=== PATIENT | female | born 1965 | race Caucasian/White ===

== ENCOUNTER → 2017-07-07 | Outpatient (CLI) | payer MEDICAID ==
[~2017-07-07] MED LIST: ALBU8.5H2 IH; ALBUTEROL INHALER INH; ALPR1T PO; ALPR2TAB37 PO; AML5T; AMLO-326 PO; AMLO1TAB15 PO; C250T; CETI10CA PO; CETI10TA20 PO; CLN.1T; EZET10TA23 PO; FLUT16SP22 NS; FRSM20T PO; HYDR-2890 PO; HYDR-2997 PO; INSASP10V SQ; INSU100C3; INSU100C4; INSU100C4 SQ; INSU100I14 SQ; INSU100V6 SQ; LAMO25TA5; LATA2.5D5 OU; METO50TA2 PO; METO50TA7; METR500T PO; MTC10T; MTC10T PO; MTP50T PO; NAPR-243 PO; NF-HYDR25T; NOVOLOG PEN; NYST30OI TOP; OMEP-10 PO; OMEP40CA36 PO; OXYC1TAB19 PO; RNT150T; SIMV40TA2 PO; SIMV40TA4 PO; SMV20T; SMV20T PO; SUMA100T2 PO; TML25OP25 OU; TRM50T; WARF1TAB10 PO; WARF5TAB58 PO; WRF1T PO; WRF5T; [UNRECOGNIZED DRUG - OTHER]
[2017-07-07 08:27] LABS: ALBUMIN 3.6 GM/DL (3.2-4.5); BILIRUBIN,TOTAL 0.7 MG/DL (0.1-1.0); CALCIUM 8.8 MG/DL (8.5-10.1); CREATININE SERUM 1.17 MG/DL (0.60-1.30); POTASSIUM 4.6 MMOL/L (3.6-5.0); TOTAL PROTEIN 6.6 GM/DL (6.4-8.2)
[2017-07-08 10:43] LABS: VITAMIN D 25-HYDROXY (TOTAL) 14 ng/mL (30-100)
== END ==
LOC: LAB 07:38
PROVIDERS: ATTEND Internal Medicine Endocrinology, Diabetes & Metabolism
DX: E10.65 Type 1 diabetes mellitus with hyperglycemia (principal)
CPT/HCPCS: 36415; 80053; 80061; 82306; 82607

== ENCOUNTER 2017-07-22 19:15 | Emergency (ER) | payer MEDICAID ==
[~2017-07-22] VITALS: Ht 165.1 cm; Wt 93.0 kg
--- OUTSIDE RECORDS SUMMARY | 2017-07-22 19:19 | XMS REPORT | Clinical Summary ---
Author Author [facility] Organization [facility] Address Unknown Phone Unavailable Care Team Providers Care Hiv Nurse Name Role Phone PCP Unavailable Source Comments Some departments are not documenting in the electronic medical record. If you do not see the information that you expected, contact Release of Information in the Health Information Management department at [phone] for further assistance in locating additional records.[facility] Allergies Not on File Current Medications Not on file Active Problems Not on file Social History Tobacco Use Types Packs/Day Years Used Date Never Assessed Sex Assigned at Date Recorded Not on file Last Filed Vital Signs Not on file Plan of Treatment Health Maintenance Due Date Last Done Comments HEPATITIS C SCREENING 1963 PHYSICAL (COMPREHENSIVE) 1970 EXAM PERTUSSIS VACCINE 1974 TETANUS VACCINE 02/29/1980 CERVICAL CANCER SCREENING 1993 BREAST CANCER SCREENING 2003 COLORECTAL CANCER 2013 SCREENING INFLUENZA VACCINE 07/18/2017 Results Not on filefrom Last 3 Months
[2017-07-22] MEDS ORDERED: PROCHLORPERAZINE 10 MG/2ML INJ (COMPAZINE) IV ONE (19:45)
[2017-07-22] MEDS ORDERED: NS IV 1000 ML 1,000 ML IV SCH (19:45)
--- NOTE | 2017-07-22 19:46 | ED Abdominal Pain ---
General Stated Complaint: VOMITING Source of Information: Patient Exam Limitations: No Limitations History of Present Illness Time Seen By Provider: 19:45 Initial Comments To ER with bilateral lower abdominal pain for the past several days. She developed nausea and vomiting today. No fevers or chills. She reports a history of gastroparesis. Timing/Duration: 1 Week, Getting Worse Severity/Quality: Moderate Location: Suprapubic Radiation: No Radiation Activities at Onset: None Associated Symptoms: Nausea/Vomiting Allergies and Home Medications Allergies Coded Allergies: Sulfa (Sulfonamide Antibiotics) (Unverified Allergy, Unknown, 05/11/15) codeine (Verified Allergy, Unknown, TAKES ULTRAM AT HOME, 11/18/08) ketorolac (Verified Allergy, Unknown, 10/05/08) tramadol (Verified Allergy, Unknown, 11/02/11) Home Medications Albuterol 8.5 Gm Hfa.aer.ad, 2 PUFF IH TID PRN for SHORTNESS OF BREATH, ( Reported) 1 PUFFS Alprazolam 2 Mg Tab.rapdis, 2 MG PO TID PRN for ANXIETY, (Reported) Amlodipine/Valsartan 1 Each Tablet, 1 EACH PO DAILY, (Reported) Cetirizine HCl 10 Mg Tablet, 10 MG PO HS, (Reported) Ezetimibe 10 Mg Tablet, 10 MG PO DAILY, (Reported) Fluticasone Propionate 16 Gm Naspr, 2 SPRAYS NS DAILY, (Reported) Hydrocodone Bit/Acetaminophen 1 Each Tablet, 1 EACH PO BID PRN for PAIN, ( Reported) Insulin Aspart 100 Unit/1 Ml Insuln.pen, SQ PER SLIDING SCALE, (Reported) Insulin Glargine,Hum.rec.anlog 100 Unit/1 Ml Vial, 22 UNITS SQ BID, (Reported) Latanoprost 2.5 Ml Drops, 1 DROP OU HS, (Reported) Metoprolol Tartrate 50 Mg Tablet, 50 MG PO BID, (Reported) Nystatin 30 Gm Oint..gm., 0 TOP TID, (Reported) APPLY TO AFFECTED AREA(S) Omeprazole 40 Mg Capsule.dr, 40 MG PO before breakfast, (Reported) Simvastatin 40 Mg Tablet, 40 MG PO HS, (Reported) Timolol Maleate 15 Ml Btl, 1 DROP OU DAILY, #15 (Reported) Warfarin Sodium 1 Mg Tablet, 3 MG PO 6 pm, (Reported) TAKE 3 (1 MG) TABLETS WITH THE 5 MG DOSE AT 6 PM Warfarin Sodium 5 Mg Tablet, 5 MG PO 6 pm, (Reported) TAKE 1 (5 MG) TABLET WITH 3 (1 MG) TABLETS AT 6 PM Review of Systems Constitutional: see HPI EENTM: No Symptoms Reported Respiratory: No Symptoms Reported Cardiovascular: No Symptoms Reported Gastrointestinal: See HPI, Abdominal Pain, Nausea, Vomiting Genitourinary: No Symptoms Reported Musculoskeletal: no symptoms reported Skin: no symptoms reported Psychiatric/Neurological: No Symptoms Reported Past Brtyqfd-Ucddpn-Btrvad Hx Patient Social History Recent Foreign Travel: No Contact w/Someone Who Travel: No Immunizations Up To Date Tetanus Booster (TDap): Unknown Date of Pneumonia Vaccine: Aug 17, 2012 Date of Influenza Vaccine: Aug 17, 2012 Surgeries Surgeries: Adenoidectomy, Ear Surgery, Hysterectomy, Tonsillectomy Respiratory Respiratory Disorders: Asthma, Pneumonia, Chronic Bronchitis Cardiovascular Cardiac Disorders: Deep Vein Thrombosis Reproductive System Hx Reproductive Disorders: Yes Female Reproductive Disorders: Menstrual Problems Genitourinary Genitourinary Disorders: Renal Failure Gastrointestinal Gastrointestinal Disorders: Gastroesophageal Reflux, Pancreatitis Musculoskeletal Musculoskeletal Disorders: Arthritis, Rheumatoid Arthritis, Fractures Endocrine Endocrine Disorders: Diabetes, Insulin dep HEENT HEENT Disorders: Tonsilitis Loss of Vision: Denies Hearing Impairment: Denies Psychosocial Behavioral Health Disorders: Personality Disorder Blood Transfusions Adverse Reaction to a Blood Tr: No Family Medical History Significant Family History: Heart Disease, Cancer, Diabetes Physical Exam Vital Signs VS - Last 72 Hours, by Label 07/22/17 19:27 Temp 97.3 Pulse 115 Resp 24 B/P (MAP) 178/120 Pulse Ox 97 O2 Delivery Room Air Capillary Refill : General Appearance: WD/WN, no apparent distress HEENT: PERRL/EOMI, normal ENT inspection Neck: non-tender, full range of motion Respiratory: normal breath sounds, no respiratory distress, no accessory muscle use Cardiovascular: regular rate, rhythm, no murmur Gastrointestinal: normal bowel sounds, non tender, soft Extremities: normal range of motion, non-tender, normal inspection, no pedal edema Pelvic: normal external exam Neurologic/Psychiatric: alert, normal mood/affect, oriented x 3 Skin: normal color, warm/dry Progress/Results/Core Measures Results/Orders Lab Results Laboratory Tests Test 07/22/17 19:45 07/22/17 20:00 Range/Units White Blood Count 9.4 4.3-11.0 10^3/uL Red Blood Count 4.92 4.35-5.85 10^6/uL Hemoglobin 15.4 11.5-16.0 G/DL Hematocrit 46 35-52 % Mean Corpuscular Volume 93 80-99 FL Mean Corpuscular Hemoglobin 31 25-34 PG Mean Corpuscular Hemoglobin Concent 34 32-36 G/DL Red Cell Distribution Width 13.8 10.0-14.5 % Platelet Count 237 130-400 10^3/uL Mean Platelet Volume 10.1 7.4-10.4 FL Neutrophils (%) (Auto) 64 42-75 % Lymphocytes (%) (Auto) 25 12-44 % Monocytes (%) (Auto) 8 0-12 % Eosinophils (%) (Auto) 3 0-10 % Basophils (%) (Auto) 0 0-10 % Neutrophils # (Auto) 6.0 1.8-7.8 X 10^3 Lymphocytes # (Auto) 2.4 1.0-4.0 X 10^3 Monocytes # (Auto) 0.8 0.0-1.0 X 10^3 Eosinophils # (Auto) 0.2 0.0-0.3 10^3/uL Basophils # (Auto) 0.0 0.0-0.1 10^3/uL Sodium Level 142 135-145 MMOL/L Potassium Level 4.2 3.6-5.0 MMOL/L Chloride Level 104 98-107 MMOL/L Carbon Dioxide Level 24 21-32 MMOL/L Anion Gap 14 5-14 MMOL/L Blood Urea Nitrogen 25 H 7-18 MG/DL Creatinine 1.29 0.60-1.30 MG/DL Estimat Glomerular Filtration Rate 43 BUN/Creatinine Ratio 19 Glucose Level 102 70-105 MG/DL Calcium Level 9.6 8.5-10.1 MG/DL Total Bilirubin 0.9 0.1-1.0 MG/DL Aspartate Amino Transf (AST/SGOT) 99 H 5-34 U/L Alanine Aminotransferase (ALT/SGPT) 230 H 0-55 U/L Alkaline Phosphatase 83 40-136 U/L Total Protein 7.9 6.4-8.2 GM/DL Albumin 4.1 3.2-4.5 GM/DL Lipase 144 H 8-78 U/L Urine Color YELLOW Urine Clarity SLIGHTLY CLOUDY Urine pH 8 5-9 Urine Specific [place] 1.010 L 1.016-1.022 Urine Protein 3+ H NEGATIVE Urine Glucose (UA) NEGATIVE NEGATIVE Urine Ketones 1+ H NEGATIVE Urine Nitrite NEGATIVE NEGATIVE Urine Bilirubin NEGATIVE NEGATIVE Urine Urobilinogen NORMAL NORMAL MG/DL Urine Leukocyte Esterase 1+ H NEGATIVE Urine RBC (Auto) 2+ H NEGATIVE Urine RBC 5-10 H /HPF Urine WBC 0-2 /HPF Urine Squamous Epithelial Cells 0-2 /HPF Urine Crystals NONE /LPF Urine Bacteria NONE /HPF Urine Casts NONE /LPF Urine Mucus NEGATIVE /LPF Urine Culture Indicated NO Urine Opiates Screen NEGATIVE NEGATIVE Urine Oxycodone Screen NEGATIVE NEGATIVE Urine Methadone Screen NEGATIVE NEGATIVE Urine Propoxyphene Screen NEGATIVE NEGATIVE Urine Barbiturates Screen NEGATIVE NEGATIVE Ur Tricyclic Antidepressants Screen NEGATIVE NEGATIVE Urine Phencyclidine Screen NEGATIVE NEGATIVE Urine Amphetamines Screen NEGATIVE NEGATIVE Urine Methamphetamines Screen NEGATIVE NEGATIVE Urine Benzodiazepines Screen NEGATIVE NEGATIVE Urine Cocaine Screen NEGATIVE NEGATIVE Urine Cannabinoids Screen POSITIVE H NEGATIVE My Orders Orders - LIZET MAS NEW BUSINESS CLERK Cbc With Automated Diff (07/22/17 19:44) Comprehensive Metabolic Panel (07/22/17 19:44) Ua Culture If Indicated (07/22/17 19:44) Drug Screen Stat (Urine) (07/22/17 19:44) Saline Lock/Iv-Start (07/22/17 19:44) Lipase (07/22/17 19:44) Ns Iv 1000 Ml (Sodium Chloride 0.9%) (07/22/17 19:45) Prochlorperazine Injection (Compazine In (07/22/17 19:45) Ct Abd/Pelvis Wo(Kidney Stone) (07/22/17 20:29) Medications Given in ED Current Medications Medications Dose Ordered Sig/Nehemias Route Start Time Stop Time Status Last Admin Dose Admin Prochlorperazine Edisylate 10 mg ONCE ONCE IV 07/22/17 19:45 07/22/17 19:46 DC 07/22/17 19:59 10 MG Vital Signs/I&O Vital Sign - Last 12Hours 07/22/17 19:27 Temp 97.3 Pulse 115 Resp 24 B/P (MAP) 178/120 Pulse Ox 97 O2 Delivery Room Air Intake and Output 07/23/17 00:00 Intake Total 1000 ml Balance 1000 ml Departure Communication (Admissions) Progress Notes 2241- patient is feeling better at this time. Her abdominal pain is gone that was not given any pain medications. She reports some intermittent lower abdominal cramping. We'll give her some Zofran IV. Impression Impression: Primary Impression: Elevated liver enzymes Additional Impression: Nausea Disposition: 01 HOME, SELF-CARE Condition: Stable Departure-Patient Inst. Decision time for Depature: 22:42 Referrals: KARY ROWE DO (PCP/Family) Primary Care Physician Patient Instructions: NO INSTRUCTIONS GIVEN Add. Discharge Instructions: 1. Follow-up with Dr. Dr. Rowe 2. Return to ER for any concerns 3. Scripts Ondansetron (Zofran Odt) 8 Mg Tab.rapdis 8 MG PO Q6H Y for NAUSEA/VOMITING-1ST LINE, #14 TAB Prov: LIZET MAS APRN 07/22/17 LIZET MAS APRN Jul 22, 2017 19:46
[2017-07-22 20:11] LABS: BASOPHILS % (AUTO) 0 % (0-10); EOSINOPHILS # (AUTO) 0.2 10^3/uL (0.0-0.3); EOSINOPHILS % (AUTO) 3 % (0-10); LYMPHOCYTES # (AUTO) 2.4 X 10^3 (1.0-4.0); LYMPHOCYTES % (AUTO) 25 % (12-44); MEAN CORPUSCULAR HEMOGLOBIN 31 PG (25-34); MEAN CORPUSCULAR HGB CONC 34 G/DL (32-36); MEAN CORPUSCULAR VOLUME 93 FL (80-99); MEAN PLATELET VOLUME 10.1 FL (7.4-10.4); MONOCYTES # (AUTO) 0.8 X 10^3 (0.0-1.0); MONOCYTES % (AUTO) 8 % (0-12); NEUTROPHILS % (AUTO) 64 % (42-75); PLATELET COUNT 237 10^3/uL (130-400); RED BLOOD COUNT 4.92 10^6/uL (4.35-5.85); RED CELL DISTRIBUTION WIDTH 13.8 % (10.0-14.5); WHITE BLOOD COUNT 9.4 10^3/uL (4.3-11.0)
[2017-07-22 20:14] LABS: BILIRUBIN,URINE NEGATIVE (NEGATIVE); KETONES,URINE 1+ (NEGATIVE); LEUKOCYTE ESTERASE ,URINE 1+ (NEGATIVE); NITRITE,URINE NEGATIVE (NEGATIVE); PH,URINE 8 (5-9); PROTEIN,URINE 3+ (NEGATIVE); UROBILINOGEN,URINE NORMAL (NORMAL)
[2017-07-22 20:25] LABS: SQUAMOUS EPITHELIAL CELL,UR 0-2 /HPF; WBC,URINE 0-2 /HPF
[2017-07-22 20:35] LABS: ALBUMIN 4.1 GM/DL (3.2-4.5); BILIRUBIN,TOTAL 0.9 MG/DL (0.1-1.0); CALCIUM 9.6 MG/DL (8.5-10.1); CREATININE SERUM 1.29 MG/DL (0.60-1.30); POTASSIUM 4.2 MMOL/L (3.6-5.0); TOTAL PROTEIN 7.9 GM/DL (6.4-8.2)
--- NOTE | 2017-07-22 21:46 | Diagnostic Imaging Report ---
PROCEDURE: CT urinary tract, rule out kidney stone. TECHNIQUE: Multiple contiguous axial images were obtained through the abdomen and pelvis without the use of intravenous contrast. INDICATION: Lower abdominal pain with nausea and vomiting. History of kidney failure. COMPARISON is made to a prior CT from January 01, 2013. FINDINGS: The visualized lung bases demonstrate minimal dependent atelectasis and otherwise are clear. There is no pleural or pericardial effusion. The noncontrast appearance of the liver is unremarkable. Gallbladder nondistended without radiodense gallstone or biliary dilatation. The spleen is normal in size. Pancreas demonstrates no focal abnormality. There is no adrenal mass. There are right sided exophytic renal cysts. The kidneys appear nonobstructed without evidence of urolithiasis. No stone evident within the ureters or within the urinary bladder. There are fluid-filled loops of both small and proximal large bowel but no abnormal bowel dilation to suggest obstruction or evidence of significant abnormal bowel thickening. There is no focal inflammation evident within the omentum or mesentery and no evidence of free fluid within the pelvis. The patient is status post previous hysterectomy. There is no pathologic adenopathy evident. Aorta demonstrates advanced atherosclerosis. An IVC filter is noted. There are no acute or suspicious osseous abnormalities. IMPRESSION: 1. Fluid-filled loops of small bowel and proximal colon without evidence of bowel dilation to suggest obstruction. There is no significant bowel thickening demonstrated or evidence of focal inflammation within the omentum or mesentery. No free air or free fluid demonstrated 2. No evidence of urolithiasis or hydronephrosis. There is a simple appearing low density right renal cyst. 3. Atherosclerosis An IVC filter is noted. 4. Previous hysterectomy. Dictated by: Dictated on workstation # [id number]
[2017-07-22] MEDS ORDERED: RX-ONDANSETRON 4 MG ODT (ZOFRAN) PPK #4 PO STA (22:40)
[2017-07-22] MEDS ORDERED: ONDA8TAB9 PO (22:43)
[2017-07-22] MEDS ORDERED: ONDANSETRON 4 MG/2 ML (SDV) Z0FRAN IVP ONE (22:45)
[2017-07-22 23:17] VITALS: BP 162/106
== END 2017-07-22 23:17 | disposition home or self-care (01) ==
LOC: EDUNIT# 19:15 → ER 19:16
DX: R94.5 Abnormal results of liver function studies (principal); R11.2 Nausea with vomiting, unspecified; J45.909 Unspecified asthma, uncomplicated; K21.9 Gastro-esophageal reflux disease without esophagitis; M19.90 Unspecified osteoarthritis, unspecified site; M06.9 Rheumatoid arthritis, unspecified; E11.9 Type 2 diabetes mellitus without complications; Z82.49 Family history of ischemic heart disease and other diseases of the circulatory system; Z87.01 Personal history of pneumonia (recurrent); Z86.718 Personal history of other venous thrombosis and embolism; Z87.19 Personal history of other diseases of the digestive system; Z79.01 Long term (current) use of anticoagulants; Z79.4 Long term (current) use of insulin; Z90.710 Acquired absence of both cervix and uterus; Z90.89 Acquired absence of other organs
CPT/HCPCS: 36415; 74176; 80053; 80306; 81000; 83690; 85025; 96361; 96374; 96375

== ENCOUNTER → 2017-08-27 | Outpatient (CLI) | payer MEDICAID ==
[~2017-08-27] MED LIST changes: +ONDA8TAB9 PO
[2017-08-27 08:59] LABS: BASOPHILS % (AUTO) 1 % (0-10); EOSINOPHILS # (AUTO) 0.2 10^3/uL (0.0-0.3); EOSINOPHILS % (AUTO) 3 % (0-10); LYMPHOCYTES # (AUTO) 2.3 X 10^3 (1.0-4.0); LYMPHOCYTES % (AUTO) 33 % (12-44); MEAN CORPUSCULAR HEMOGLOBIN 31 PG (25-34); MEAN CORPUSCULAR HGB CONC 34 G/DL (32-36); MEAN CORPUSCULAR VOLUME 92 FL (80-99); MEAN PLATELET VOLUME 10.3 FL (7.4-10.4); MONOCYTES # (AUTO) 0.9 X 10^3 (0.0-1.0); MONOCYTES % (AUTO) 13 % (0-12); NEUTROPHILS # (AUTO) 3.6 X 10^3 (1.8-7.8); NEUTROPHILS % (AUTO) 51 % (42-75); PLATELET COUNT 227 10^3/uL (130-400); RED BLOOD COUNT 5.49 10^6/uL (4.35-5.85); RED CELL DISTRIBUTION WIDTH 13.7 % (10.0-14.5)
[2017-08-27 09:19] LABS: ALBUMIN 4.1 GM/DL (3.2-4.5); BILIRUBIN,TOTAL 1.2 MG/DL (0.1-1.0); CALCIUM 9.9 MG/DL (8.5-10.1); CREATININE SERUM 1.33 MG/DL (0.60-1.30); POTASSIUM 4.2 MMOL/L (3.6-5.0); TOTAL PROTEIN 8.3 GM/DL (6.4-8.2)
== END ==
LOC: LAB 08:40
PROVIDERS: ATTEND Family Medicine
DX: R74.8 Abnormal levels of other serum enzymes (principal); R73.9 Hyperglycemia, unspecified
CPT/HCPCS: 36415; 80053; 80061; 83036; 85025

== ENCOUNTER → 2018-04-15 | Outpatient (CLI) | payer MEDICAID ==
[2018-04-15 08:24] LABS: MEAN PLATELET VOLUME 10.2 FL (7.4-10.4); RED BLOOD COUNT 4.66 10^6/uL (4.35-5.85); RED CELL DISTRIBUTION WIDTH 13.3 % (10.0-14.5); WHITE BLOOD COUNT 5.2 10^3/uL (4.3-11.0)
[2018-04-15 08:43] LABS: ALBUMIN 3.9 GM/DL (3.2-4.5); BILIRUBIN,TOTAL 0.8 MG/DL (0.1-1.0); CALCIUM 9.3 MG/DL (8.5-10.1); CREATININE SERUM 1.21 MG/DL (0.60-1.30); POTASSIUM 4.5 MMOL/L (3.6-5.0); TOTAL PROTEIN 7.3 GM/DL (6.4-8.2)
== END ==
LOC: LAB 08:02
PROVIDERS: ATTEND Internal Medicine Endocrinology, Diabetes & Metabolism
DX: E10.65 Type 1 diabetes mellitus with hyperglycemia (principal); N18.9 Chronic kidney disease, unspecified
CPT/HCPCS: 36415; 80053; 82043; 82306; 82607; 84443; 85027

== ENCOUNTER → 2018-07-23 | Outpatient (CLI) | payer MEDICAID ==
--- NOTE | 2018-07-23 12:44 | Diagnostic Imaging Report ---
EXAM: Left elbow at 11:22 a.m. INDICATION: Injury, elbow pain TECHNIQUE: 3 views were obtained. COMPARISON: There are no prior studies available for comparison. FINDINGS: There is no fracture, dislocation or acute bony abnormality evident. The lateral view does show a minute calcific density in the soft tissues adjacent to the olecranon process of the ulna. There is also a small amount of soft tissue edema in this area. This finding could represent a very small avulsion fracture although the age of this injury is indeterminate. Clinical followup is recommended. The elbow joint is fairly well-maintained. The posterior fat-pad is not elevated. IMPRESSION: 1. There is a small calcific density in the soft tissues along the posterior aspect of the olecranon process of the ulna. This may represent a minute avulsion fracture although the age of this injury is indeterminate. Clinical followup is recommended. 2. There is no acute bony abnormality noted otherwise. Dictated by: Dictated on workstation # [id number]
== END ==
LOC: RAD 10:23
PROVIDERS: ATTEND Family Medicine
DX: M61.48 Other calcification of muscle, other site (principal); M25.522 Pain in left elbow
CPT/HCPCS: 73080

== ENCOUNTER → 2018-12-01 | Outpatient (CLI) | payer MEDICAID ==
[2018-12-01 17:28] LABS: HEMOGLOBIN 14.7 G/DL (11.5-16.0); RED BLOOD COUNT 4.76 10^6/uL (4.35-5.85); RED CELL DISTRIBUTION WIDTH 13.2 % (10.0-14.5); WHITE BLOOD COUNT 9.4 10^3/uL (4.3-11.0)
[2018-12-01 17:48] LABS: ALBUMIN 4.2 GM/DL (3.2-4.5); BILIRUBIN,TOTAL 0.8 MG/DL (0.1-1.0); CALCIUM 10.1 MG/DL (8.5-10.1); CREATININE SERUM 1.78 MG/DL (0.60-1.30); POTASSIUM 3.6 MMOL/L (3.6-5.0); TOTAL PROTEIN 8.7 GM/DL (6.4-8.2)
== END ==
LOC: LAB 17:11
PROVIDERS: ATTEND Internal Medicine Endocrinology, Diabetes & Metabolism
DX: E10.65 Type 1 diabetes mellitus with hyperglycemia (principal)
CPT/HCPCS: 36415; 80053; 80061; 84443; 85027

== ENCOUNTER → 2019-01-05 | Outpatient (CLI) | payer MEDICAID | LOC: LAB 10:30 | PROVIDERS: ATTEND Internal Medicine Endocrinology, Diabetes & Metabolism | DX: N18.9 Chronic kidney disease, unspecified (principal) ==

== ENCOUNTER 2019-06-27 08:13 | Inpatient (IN) | payer MEDICAID ==
[2019-06-27] VITALS (14 sets, daily range): BP systolic 115–173; BP diastolic 66–97
[~2019-06-27] VITALS: Ht 165.1 cm; Wt 68.5 kg
--- OUTSIDE RECORDS SUMMARY | 2019-06-27 08:17 | XMS REPORT | Clinical Summary ---
Author Author [facility] Address Unknown Phone Unavailable Care Team Providers Care Sports Athletic Trainer Name Role Phone PP Unavailable Allergies Not on File Medications Not on file Active Problems Not on file Social History Date Tobacco Use Types Packs/Day Years Used Never Assessed Sex Assigned at Date Recorded Not on file Industry Job Start Date Occupation Not on file Not on file Not on file Travel End Travel History Travel Start No recent travel history available. Plan of Treatment Health Maintenance Due Date Last Done Comments Hepatitis C Screening 1963 DTaP,Tdap,and Td Vaccines 1982 (1 - Tdap) MMR Vaccines-Adult 1982 Cervical Cancer Screening 02/29/1984 Breast Cancer 2013 Screening-Mammogram Colon Cancer Screening 2013 Zoster Recombinant 2013 Vaccine (RZV,Shingrix) (1 of 2 - [facility] 2 Dose Standard) Influenza Vaccine (#1) 2019 Pneumo-Vaccine: Peds (0-5 Aged Out No longer eligible based Yrs) & At-Risk Patients on patient's age to (6-64 Yrs) complete this topic Results Not on filefrom Last 3 Months
--- OUTSIDE RECORDS SUMMARY | 2019-06-27 08:17 | XMS REPORT | Clinical Summary ---
Author Author [facility] Organization [facility] Address Unknown Phone Unavailable Care Team Providers Care Alumni Coordinator Name Role Phone No Pcp, Na PCP Unavailable Source Comments Some departments are not documenting in the electronic medical record. If you d o not see the information that you expected, contact Release of Information in [facility] Experiment Information Management department at [phone] for further assistan ce in locating additional records.[facility] Allergies Not on File Medications Not on file Active Problems Not on file Social History Date Tobacco Use Types Packs/Day Years Used Never Assessed Sex Assigned at Date Recorded Not on file Industry Job Start Date Occupation Not on file Not on file Not on file Travel End Travel History Travel Start No recent travel history available. Last Filed Vital Signs Not on file Plan of Treatment Health Maintenance Due Date Last Done Comments HEPATITIS C SCREENING 1963 PHYSICAL (COMPREHENSIVE) 1970 EXAM HIV SCREENING 1978 DTAP/TDAP VACCINES (1 - 1981 Tdap) CERVICAL CANCER SCREENING 1993 BREAST CANCER SCREENING 2003 COLORECTAL CANCER 2013 SCREENING SHINGLES RECOMBINANT 2013 VACCINE (1 of 2) INFLUENZA VACCINE 08/17/2019 Results Not on filefrom Last 3 Months Insurance Type Payer Benefit Subscriber ID Effective Phone Address Plan / Dates Group [employer] [place] xxxxxxxxx 2016- HEALTH Present SERVICES Advance Directives Patient Customer Account Coordinator Explanation Type Date Recorded Advance 03/04/2016 11:45 AM Directive/DPOA
--- OUTSIDE RECORDS SUMMARY | 2019-06-27 08:17 | XMS REPORT ---
Author Author BAKARI Rosales [facility] Address Unknown Care Team Providers Care Log Inspector Name Role Phone BAKARI Rosales Unavailable PROBLEMS Unknown Problems ALLERGIES Substance Reaction Event Type Date Status Penicillin G Sodium Unknown Drug Allergy Dec, Active methotrexate Unknown Non Drug Allergy Dec, Active ultrum Unknown Non Drug Allergy Dec, Active morphine Unknown Non Drug Allergy Dec, Active sulfa Unknown Non Drug Allergy Dec, Active SOCIAL HISTORY Never Assessed PLAN OF CARE Activity Details Follow Up prn Reason:hygiene/mackenzie VITAL SIGNS Blood pressure systolic 144 mmHg 2017-01-07 Blood pressure diastolic 69 mmHg 2017-01-07 MEDICATIONS Medication Instructions Dosage Frequency Start Date End Date Duration Status Latanoprost Active [place] 5-325 MG Orally every 6 hrs 1 tablet as needed 6h Dec, Dec, 4 days Active Keflex 500 MG Orally Four times a day 1 capsule 6h Dec, Dec, 7 days Active Timolol Active Brimonidine Tartrate Active Saphris Active Lice Treatment Active Phzhdsknaw-Unupsszpe-UFQO Active Alprazolam Active Zetia Active Jantoven Active Oxcarbazepine Active Nwvfgsqtfbs-[id number]-Wwrqjom Prod Active RESULTS No Results PROCEDURES Procedure Date Ordered Result Body Site LTD ORAL EVALUATION - PROBLEM FOCUS Jan 07, 2017 INTRAORL-PERIAPICAL 1 FILM [id number] Jan 07, 2017 IMMUNIZATIONS No Known Immunizations MEDICAL (GENERAL) HISTORY Type Description Date Medical History High blood pressure Medical History [place] Medical History Asthma Medical History Diabetes Medical History Pt takes Blood thinners Medical History Arthritits Medical History 9 chronic kidney diesease
--- OUTSIDE RECORDS SUMMARY | 2019-06-27 08:19 | XMS REPORT | Continuity of Care Document ---
Author Organization Unknown Address Unknown Phone Unavailable Allergies Active Description Code Type Severity Reaction Onset Reported/Identified Relationship to Patient Clinical Status Yes ketorolac [id number] Drug Allergy Unknown N/A 10/05/2008 Yes codeine [id number] Drug Allergy Unknown TAKES ULTRAM AT 11/18/2008 Yes tramadol [id number] Drug Allergy Unknown N/A 11/02/2011 Yes Sulfa (Sulfonamide Antibiotics) [id number] Drug Allergy Unknown N/A 05/11/2015 Medications There is no data. Problems Date Dx Coded Attending Type Code Diagnosis Diagnosed By 01/11/2011 Ot 716.90 ARTHROPATHY NOS- UNSPEC 01/11/2011 Ot 787.03 VOMITING ALONE 01/11/2011 Ot 789.00 ABDOMINAL PAIN, UNSPECIFIED SITE 02/03/2011 Ot 250.80 DIAB W OTH SPEC MANIFEST, TYPE II OR UNS 02/03/2011 Ot 305.20 CANNABIS ABUSE- UNSPEC 02/03/2011 Ot 305.50 OPIOID ABUSE- UNSPEC 02/03/2011 Ot 305.90 DRUG ABUSE NEC- UNSPEC 02/03/2011 Ot V58.67 LONG-TERM (CURRENT) USE OF INSULIN 02/03/2011 Ot V58.69 OTH MED,LT,CURRENT USE 04/11/2011 Ot 346.90 MIGRAINE UNSPECIFIED W/O INTRACT MGRN W/ 04/11/2011 Ot 784.0 HEADACHE 09/09/2011 Ot 825.25 FX METATARSAL- CLOSED 09/09/2011 Ot 959.7 LOWER LEG INJURY NOS 09/09/2011 Ot E000.8 OTHER EXTERNAL CAUSE STATUS 09/09/2011 Ot E849.0 ACCIDENT IN HOME 09/09/2011 Ot E885.9 FALL FROM SLIPPING, TRIPPING, OR STUMBLI 11/06/2011 Ot 041.89 BACTERIAL INFECTION DUE TO OTHER SPECIFI 11/06/2011 Ot 250.00 DIAB LONA WO COMPL, TYPE II OR UNSPEC TY 11/06/2011 Ot 272.4 HYPERLIPIDEMIA NEC/NOS 11/06/2011 Ot 300.4 DYSTHYMIC DISORDER 11/06/2011 Ot 401.9 HYPERTENSION NOS 11/06/2011 Ot 453.41 ACUTE VENOUS EMBOLISM THROMBOSIS DEEP 11/06/2011 Ot 530.81 ESOPHAGEAL REFLUX 11/06/2011 Ot 593.9 RENAL URETERAL DIS NOS 11/06/2011 Ot 599.0 URIN TRACT INFECTION NOS 11/06/2011 Ot V45.89 POSTSURGICAL STATES NEC 11/06/2011 Ot V54.19 [facility] TRAUMATIC FX OTHER BON 02/06/2012 Ot 453.40 ACUTE VENOUS EMBOLISM THROMBOSIS UNSP 03/04/2012 Ot 346.90 MIGRAINE UNSPECIFIED W/O INTRACT MGRN W/ 06/02/2012 Ot 453.40 ACUTE VENOUS EMBOLISM THROMBOSIS UNSP 01/04/2013 Ot 250.61 DIAB W NEURO MANIFEST, TYPE I [JUVENILE 01/04/2013 Ot 305.1 TOBACCO USE DISORDER 01/04/2013 Ot 401.9 HYPERTENSION NOS 01/04/2013 Ot 493.90 ASTHMA, UNSPECIFIED 01/04/2013 Ot 536.3 GASTROPARESIS 01/04/2013 Ot 558.9 NONINF GASTROENTERIT NEC 01/04/2013 Ot 577.0 ACUTE PANCREATITIS 03/15/2013 Ot 453.40 ACUTE VENOUS EMBOLISM THROMBOSIS UNSP 02/23/2014 KARY ROWE DO Ot 453.40 ACUTE VENOUS EMBOLISM THROMBOSIS UNSP 11/07/2014 KARY ROWE DO Ot 453.40 ACUTE VENOUS EMBOLISM THROMBOSIS UNSP 02/14/2015 Ot 250.03 02/14/2015 Ot 250.41 02/14/2015 Ot 272.4 02/14/2015 Ot 403.10 02/14/2015 Ot 583.81 02/14/2015 Ot 585.2 02/14/2015 Ot 791.0 05/11/2015 Ot 453.40 05/11/2015 KARY ROWE DO Ot 453.40 05/11/2015 KARY ROWE DO Ot 250.80 DIAB W OTH SPEC MANIFEST, TYPE II OR UNS 05/11/2015 KARY ROWE DO Ot 300.14 DISSOCIATIVE IDENTITY DISORDER 05/11/2015 KARY ROWE DO Ot 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 05/11/2015 KARY ROWE DO Ot 458.9 HYPOTENSION NOS 05/11/2015 KARY ROWE DO Ot 530.81 ESOPHAGEAL REFLUX 05/11/2015 [facility] , KARY Basurto Ot 584.9 ACUTE RENAL FAILURE, UNSPECIFIED 05/11/2015 [facility] Basurto Ot 714.0 RHEUMATOID ARTHRITIS 05/11/2015 [facility], KARY Basurto Ot 780.97 ALTERED MENTAL STATUS 05/11/2015 [facility], KARY Basurto Ot 965.09 POISONING-OPIATES NEC 05/11/2015 [facility] DO, KARY Basurto Ot 969.4 POIS-BENZODIAZEPINE KUO 05/11/2015 [facility], KARY Basurto Ot E849.0 ACCIDENT IN HOME 05/11/2015 [facility], KARY Basurto Ot E850.2 ACC POISON-OPIATES NEC 05/11/2015 [facility], KARY Basurto Ot E853.2 ACC POISN-BENZDIAZ TRANQ 05/11/2015 [facility], KARY Basurto Ot V12.51 HX-VENOUS THROMBOSIS EMBOLISM 05/11/2015 [facility], KARY Basurto Ot V58.67 LONG-TERM (CURRENT) USE OF INSULIN 12/22/2015 SHEREE BLUNT, BARBARA S Ot E11.29 12/22/2015 SHEREE BLUNT, FAIZAMED S Ot E78.5 12/22/2015 SHEREE BLUNT, FAIZAMED S Ot I12.9 12/22/2015 SHEREE BLUNT, AHMED S Ot N18.3 12/22/2015 SHEREE BLUNT, AHMED S Ot R80.9 2016 KUMAR BLUNT, SUZETTE Ortega Ot E86.0 DEHYDRATION 2016 KUMAR BLUNT, SUZETTE Ortega Ot F11.10 OPIOID ABUSE, UNCOMPLICATED 2016 KUMAR BLUNT, SUZETTE Ortega Ot F12.10 CANNABIS ABUSE, UNCOMPLICATED 2016 SUZETTE HEATH MD Ot F15.10 OTHER STIMULANT ABUSE, UNCOMPLICATED 2016 Ot 250.01 2016 Ot 272.4 2016 Ot 403.90 2016 Ot 583.81 2016 Ot 585.2 2016 Ot 791.0 2016 Ot 250.01 2016 Ot 272.4 2016 Ot 403.90 2016 Ot 583.81 2016 Ot 585.2 2016 Ot 791.0 2016 Ot 250.41 2016 Ot 272.4 2016 Ot 403.90 2016 Ot 583.81 2016 Ot 585.2 2016 Ot 791.0 2016 Ot 250.41 2016 Ot 272.4 2016 Ot 403.90 2016 Ot 583.81 2016 Ot 585.2 2016 Ot 791.0 2016 Ot 250.01 2016 Ot 272.4 2016 Ot 403.10 2016 Ot 583.81 2016 Ot 585.2 2016 Ot 791.0 2016 Ot 250.01 2016 Ot 272.4 2016 Ot 403.10 2016 Ot 583.81 2016 Ot 585.2 2016 Ot 791.0 2016 Ot 250.40 2016 Ot 272.4 2016 Ot 585.2 2016 Ot 791.0 2016 Ot 453.40 2016 SHEREE BLUNT, SAMANTHA Thibodeaux Ot 585.3 2016 SHEREE BLUNT, SAMANTHA Ot 250.40 2016 SHEREE BLUNT, SAMANTHA Thibodeaux Ot 272.4 2016 SHEREE BLUNT, SAMANTHA Thibodeaux Ot 585.2 2016 SHEREE BLUNT, SAMANTHA Thibodeaux Ot 791.0 2016 KARY ROWE DO Ot V76.12 2016 KARY ROWE DO Ot 611.72 2016 SHEREE BLUNT, SAMANTHA Thibodeaux Ot 250.01 2016 SHEREE BLUNT, SAMANTHA Thibodeaux Ot 272.4 2016 SHEREE BLUNT, SAMANTHA Thibodeaux Ot 403.10 2016 SHEREE BLUNT, MED S Ot 583.81 2016 SHEREE BLUNT, MED S Ot 585.2 2016 SHEREE BLUNT, MED S Ot 791.0 2016 NATALIIA VAZQUEZ DO Ot 250.03 2016 SHEREE BLUNT, MED S Ot 250.01 2016 SHEREE BLUNT, MED S Ot 272.4 2016 SHEREE BLUNT, MED S Ot 403.10 2016 SHEREE BLUNT, MED S Ot 583.81 2016 SHEREE BLUNT, MED S Ot 585.2 2016 SHEREE BLUNT, [facility] S Ot 791.0 2016 NATALIIA VAZQUEZ DO Ot 250.03 2016 KARY ROWE DO Ot 453.40 2016 Ot 250.03 2016 Ot 250.41 2016 Ot 272.4 2016 Ot 403.10 2016 Ot 583.81 2016 Ot 585.2 2016 Ot 791.0 2016 SHEREE BLUNT, SAMANTHA S Ot E11.29 2016 SHEREE BLUNT, [facility] S Ot E78.5 2016 SHEREE BLUNT, [facility] S Ot I12.9 2016 SHEREE BLUNT, [facility] S Ot N18.3 2016 SHEREE BLUNT, [facility] S Ot R80.9 2016 Ot 250.01 2016 Ot 272.4 2016 Ot 403.90 2016 Ot 583.81 2016 Ot 585.2 2016 Ot 791.0 2016 Ot 250.01 2016 Ot 272.4 2016 Ot 403.90 2016 Ot 583.81 2016 Ot 585.2 2016 Ot 791.0 2016 Ot 250.41 2016 Ot 272.4 2016 Ot 403.90 2016 Ot 583.81 2016 Ot 585.2 2016 Ot 791.0 2016 Ot 250.41 2016 Ot 272.4 2016 Ot 403.90 2016 Ot 583.81 2016 Ot 585.2 2016 Ot 791.0 2016 Ot 250.01 2016 Ot 272.4 2016 Ot 403.10 2016 Ot 583.81 2016 Ot 585.2 2016 Ot 791.0 2016 Ot 250.01 2016 Ot 272.4 2016 Ot 403.10 2016 Ot 583.81 2016 Ot 585.2 2016 Ot 791.0 2016 Ot 250.40 2016 Ot 272.4 2016 Ot 585.2 2016 Ot 791.0 2016 Ot 453.40 2016 SHEREE BLUNT, SAMANTHA Thibodeaux Ot 585.3 2016 SHEREE BLUNT, SAMANTHA S Ot 250.40 2016 SHEREE BLUNT, SAMANTHA Thibodeaux Ot 272.4 2016 SHEREE BLUNT, SAMANTHA S Ot 585.2 2016 SHEREE BLUNT, SAMANTHA S Ot 791.0 2016 KARY ROWE DO A Ot V76.12 2016 KARY ROWE DO A Ot 611.72 2016 SHEREE BLUNT, SAMANTHA Thibodeaux Ot 250.01 2016 SHEREE BLUNT, BARBARA Thibodeaux Ot 272.4 2016 SHEREE BLUNT, SAMANTHA S Ot 403.10 2016 SHEREE BLUNT, SAMANTHA S Ot 583.81 2016 SHEREE BLUNT, MED S Ot 585.2 2016 SHEREE BLUNT, MED S Ot 791.0 2016 NATALIIA VAZQUEZ DO Ot 250.03 2016 SHEREE BLUNT, MED S Ot 250.01 2016 SHEREE BLUNT, AHMED S Ot 272.4 2016 SHEREE BLUNT, MED S Ot 403.10 2016 SHEREE BLUNT, MED S Ot 583.81 2016 SHEREE BLUNT, MED S Ot 585.2 2016 SHEREE BLUNT, MED S Ot 791.0 2016 NATALIIA VAZQUEZ DO Ot 250.03 2016 KARY ROWE DO Ot 453.40 2016 Ot 250.03 2016 Ot 250.41 2016 Ot 272.4 2016 Ot 403.10 2016 Ot 583.81 2016 Ot 585.2 2016 Ot 791.0 2016 SHEREE BLUNT, MED S Ot E11.29 2016 SHEREE BLUNT, MED S Ot E78.5 2016 SHEREE BLUNT, MED S Ot I12.9 2016 SHEREE BLUNT, MED S Ot N18.3 2016 SHEREE BLUNT, MED S Ot R80.9 02/29/2016 KUMAR BLUNT, SUZETTE Ortega Ot E86.0 02/29/2016 KUMAR BLUNT, SUZETTE Ortega Ot F11.10 02/29/2016 KUMAR BLUNT, SUZETTE Ortega Ot F12.10 02/29/2016 KUMAR BLUNT, SUZETTE Ortega Ot F15.10 03/01/2016 KUMAR BLUNT, SUZETTE Ortega Ot E86.0 DEHYDRATION 03/01/2016 KUMAR BLUNT, SUZETTE Ortega Ot F11.10 OPIOID ABUSE, UNCOMPLICATED 03/01/2016 KUMAR BLUNT, SUZETTE Ortega Ot F12.10 CANNABIS ABUSE, UNCOMPLICATED 03/01/2016 KUMAR BLUNT, SUZETTE Ortega Ot F15.10 OTHER STIMULANT ABUSE, UNCOMPLICATED 03/05/2016 KUMAR BLUNT, SUZETTE Ortega Ot E86.0 DEHYDRATION 03/05/2016 SUZETTE HEATH MD Ot F11.10 OPIOID ABUSE, UNCOMPLICATED 03/05/2016 KUMAR BLUNT, SUZETTE Ortega Ot F12.10 CANNABIS ABUSE, UNCOMPLICATED 03/05/2016 KUMAR BLUNT, SUZETTE Ortega Ot F15.10 OTHER STIMULANT ABUSE, UNCOMPLICATED 03/15/2016 Ot 250.01 DIAB LONA WO COMPL, TYPE I [JUVENILE TYP 03/15/2016 Ot 272.4 HYPERLIPIDEMIA NEC/NOS 03/15/2016 Ot 403.90 HYPTNSV CHR KID DIS, UNSPEC, W CHR KD ST 03/15/2016 Ot 583.81 NEPHRITIS NOS IN OTH DIS 03/15/2016 Ot 585.2 CHRONIC KIDNEY DISEASE, STAGE II (MILD) 03/15/2016 Ot 791.0 PROTEINURIA 03/15/2016 Ot 250.01 DIAB LONA WO COMPL, TYPE I [JUVENILE TYP 03/15/2016 Ot 272.4 HYPERLIPIDEMIA NEC/NOS 03/15/2016 Ot 403.90 HYPTNSV CHR KID DIS, UNSPEC, W CHR KD ST 03/15/2016 Ot 583.81 NEPHRITIS NOS IN OTH DIS 03/15/2016 Ot 585.2 CHRONIC KIDNEY DISEASE, STAGE II (MILD) 03/15/2016 Ot 791.0 PROTEINURIA 03/15/2016 Ot 250.41 DIAB W RENAL MANIFEST, TYPE I [JUVENILE 03/15/2016 Ot 272.4 HYPERLIPIDEMIA NEC/NOS 03/15/2016 Ot 403.90 HYPTNSV CHR KID DIS, UNSPEC, W CHR KD ST 03/15/2016 Ot 583.81 NEPHRITIS NOS IN OTH DIS 03/15/2016 Ot 585.2 CHRONIC KIDNEY DISEASE, STAGE II (MILD) 03/15/2016 Ot 791.0 PROTEINURIA 03/15/2016 Ot 250.41 DIAB W RENAL MANIFEST, TYPE I [JUVENILE 03/15/2016 Ot 272.4 HYPERLIPIDEMIA NEC/NOS 03/15/2016 Ot 403.90 HYPTNSV CHR KID DIS, UNSPEC, W CHR KD ST 03/15/2016 Ot 583.81 NEPHRITIS NOS IN OTH DIS 03/15/2016 Ot 585.2 CHRONIC KIDNEY DISEASE, STAGE II (MILD) 03/15/2016 Ot 791.0 PROTEINURIA 03/15/2016 Ot 250.01 DIAB LONA WO COMPL, TYPE I [JUVENILE TYP 03/15/2016 Ot 272.4 HYPERLIPIDEMIA NEC/NOS 03/15/2016 Ot 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, BENIGN, W CHR KD ST 03/15/2016 Ot 583.81 NEPHRITIS NOS IN OTH DIS 03/15/2016 Ot 585.2 CHRONIC KIDNEY DISEASE, STAGE II (MILD) 03/15/2016 Ot 791.0 PROTEINURIA 03/15/2016 Ot 250.01 DIAB LONA WO COMPL, TYPE I [JUVENILE TYP 03/15/2016 Ot 272.4 HYPERLIPIDEMIA NEC/NOS 03/15/2016 Ot 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, BENIGN, W CHR KD ST 03/15/2016 Ot 583.81 NEPHRITIS NOS IN OTH DIS 03/15/2016 Ot 585.2 CHRONIC KIDNEY DISEASE, STAGE II (MILD) 03/15/2016 Ot 791.0 PROTEINURIA 03/15/2016 Ot 250.40 DIAB W RENAL MANIFEST, TYPE II OR UNSPEC 03/15/2016 Ot 272.4 HYPERLIPIDEMIA NEC/NOS 03/15/2016 Ot 585.2 CHRONIC KIDNEY DISEASE, STAGE II (MILD) 03/15/2016 Ot 791.0 PROTEINURIA 03/15/2016 Ot 453.40 ACUTE VENOUS EMBOLISM THROMBOSIS UNSP 03/15/2016 SHEREE BLUNT, FAIZAMED S Ot 585.3 CHRONIC KIDNEY DISEASE, STAGE III (MODER 03/15/2016 SHEREE BLUNT, AHMED S Ot 250.40 DIAB W RENAL MANIFEST, TYPE II OR UNSPEC 03/15/2016 SHEREE BLUNT, AHMED S Ot 272.4 HYPERLIPIDEMIA NEC/NOS 03/15/2016 SHEREE BLUNT, AHMED S Ot 585.2 CHRONIC KIDNEY DISEASE, STAGE II (MILD) 03/15/2016 SHEREE BLUNT, AHMED S Ot 791.0 PROTEINURIA 03/15/2016 KARY ROWE DO Ot V76.12 OTH SCREEN MAMMO-MALIGN NEOPLASM OF GILMAR 03/15/2016 KARY ROWE DO Ot 611.72 LUMP OR MASS IN BREAST 03/15/2016 SHEREE BLUNT, FAIZAMED S Ot 250.01 DIAB LONA WO COMPL, TYPE I [JUVENILE TYP 03/15/2016 SHEREE BLUNT, AHSAMANTHA S Ot 272.4 HYPERLIPIDEMIA NEC/NOS 03/15/2016 SHEREE BLUNT, BARBARA S Ot 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, BENIGN, W CHR KD ST 03/15/2016 SHEREE BLUNT, AHMED S Ot 583.81 NEPHRITIS NOS IN OTH DIS 03/15/2016 SHEREE BLUNT, AHMED S Ot 585.2 CHRONIC KIDNEY DISEASE, STAGE II (MILD) 03/15/2016 SHEREE BLUNT, AHMED S Ot 791.0 PROTEINURIA 03/15/2016 NATALIIA VAZQUEZ DO Ot 250.03 DIAB LONA WO COMPL, TYPE I [JUVENILE TYP 03/15/2016 SHEREE BLUNT, AHMED S Ot 250.01 DIAB LONA WO COMPL, TYPE I [JUVENILE TYP 03/15/2016 SHEREE BLUNT, AHMED S Ot 272.4 HYPERLIPIDEMIA NEC/NOS 03/15/2016 SHEREE BLUNT, AHMED S Ot 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, BENIGN, W CHR KD ST 03/15/2016 SHEREE BLUNT, FAIZAMED S Ot 583.81 NEPHRITIS NOS IN OTH DIS 03/15/2016 SHEREE BLUNT, AHMED S Ot 585.2 CHRONIC KIDNEY DISEASE, STAGE II (MILD) 03/15/2016 SHEREE BLUNT, FAIZAMED S Ot 791.0 PROTEINURIA 03/15/2016 NATALIIA VAZQUEZ DO Ot 250.03 DIAB LONA WO COMPL, TYPE I [JUVENILE TYP 03/15/2016 KARY ROWE DO Ot 453.40 ACUTE VENOUS EMBOLISM THROMBOSIS UNSP 03/15/2016 Ot 250.03 DIAB LONA WO COMPL, TYPE I [JUVENILE TYP 03/15/2016 Ot 250.41 DIAB W RENAL MANIFEST, TYPE I [JUVENILE 03/15/2016 Ot 272.4 HYPERLIPIDEMIA NEC/NOS 03/15/2016 Ot 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, BENIGN, W CHR KD ST 03/15/2016 Ot 583.81 NEPHRITIS NOS IN OTH DIS 03/15/2016 Ot 585.2 CHRONIC KIDNEY DISEASE, STAGE II (MILD) 03/15/2016 Ot 791.0 PROTEINURIA 03/15/2016 SHEREE BLUNT, AHMED S Ot E11.29 TYPE 2 DIABETES MELLITUS W OT DIABETIC 03/15/2016 SHEREE BLUNT, AHMED S Ot E78.5 HYPERLIPIDEMIA, UNSPECIFIED 03/15/2016 SHEREE BLUNT, FAIZAMED S Ot I12.9 HYPERTENSIVE CHRONIC KIDNEY DISEASE W ST 03/15/2016 SHEREE BLUNT, AHMED S Ot N18.3 CHRONIC KIDNEY DISEASE, STAGE 3 (MODERAT 03/15/2016 SHEREE BLUNT, FAIZAMED S Ot R80.9 PROTEINURIA, UNSPECIFIED 03/18/2016 SHEREE BLUNT, AHMED S Ot E11.21 TYPE 2 DIABETES MELLITUS WITH DIABETIC N 03/18/2016 SHEREE BLUNT, BARBARA S Ot 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 03/18/2016 SHEREE BLUNT, BARBARA S Ot E78.5 HYPERLIPIDEMIA, UNSPECIFIED 03/18/2016 SHEREE BLUNT, AHMED S Ot I12.9 HYPERTENSIVE CHRONIC KIDNEY DISEASE W ST 03/18/2016 SHEREE BLUNT, FAIZAMED S Ot N18.2 CHRONIC KIDNEY DISEASE, STAGE 2 (MILD) 03/18/2016 FAIZA BENTLEY MDMED S Ot R80.9 PROTEINURIA, UNSPECIFIED 03/18/2016 SHEREE BLNUT, AHMED S Ot 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 03/26/2016 SHEREE BLUNT, FAIZAMED S Ot E11.21 TYPE 2 DIABETES MELLITUS WITH DIABETIC N 03/26/2016 SHEREE BLUNT, AHMED S Ot 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 03/26/2016 BARBARA BENTLEY MD S Ot E78.5 HYPERLIPIDEMIA, UNSPECIFIED 03/26/2016 SHEREE BLUNT, FAIZAMED S Ot I12.9 HYPERTENSIVE CHRONIC KIDNEY DISEASE W ST 03/26/2016 SHEREE BLUNT, AHMED S Ot N18.2 CHRONIC KIDNEY DISEASE, STAGE 2 (MILD) 03/26/2016 FAIZA BENTLEY MDMED S Ot R80.9 PROTEINURIA, UNSPECIFIED 03/26/2016 SHEREE BLUNT, AHMED S Ot Z79.899 OTHER [facility] (CURRENT) DRUG THERAPY 04/10/2016 NATALIIA VAZQUEZ DO Ot E10.65 TYPE 1 DIABETES MELLITUS WITH HYPERGLYCE 04/10/2016 VAZQUEZ DO, NATALIIA L Ot E78.5 HYPERLIPIDEMIA, UNSPECIFIED 04/19/2016 NATALIIA VAZQUEZ DO L Ot E10.65 TYPE 1 DIABETES MELLITUS WITH HYPERGLYCE 04/19/2016 NATALIIA VAZQUEZ DO L Ot E78.5 HYPERLIPIDEMIA, UNSPECIFIED 06/14/2016 Ot 250.01 DIAB LONA WO COMPL, TYPE I [JUVENILE TYP 06/14/2016 Ot 272.4 HYPERLIPIDEMIA NEC/NOS 06/14/2016 Ot 403.90 HYPTNSV CHR KID DIS, UNSPEC, W CHR KD ST 06/14/2016 Ot 583.81 NEPHRITIS NOS IN OTH DIS 06/14/2016 Ot 585.2 CHRONIC KIDNEY DISEASE, STAGE II (MILD) 06/14/2016 Ot 791.0 PROTEINURIA 06/14/2016 Ot 250.41 DIAB W RENAL MANIFEST, TYPE I [JUVENILE 06/14/2016 Ot 272.4 HYPERLIPIDEMIA NEC/NOS 06/14/2016 Ot 403.90 HYPTNSV CHR KID DIS, UNSPEC, W CHR KD ST 06/14/2016 Ot 583.81 NEPHRITIS NOS IN OTH DIS 06/14/2016 Ot 585.2 CHRONIC KIDNEY DISEASE, STAGE II (MILD) 06/14/2016 Ot 791.0 PROTEINURIA 06/14/2016 Ot 250.41 DIAB W RENAL MANIFEST, TYPE I [JUVENILE 06/14/2016 Ot 272.4 HYPERLIPIDEMIA NEC/NOS 06/14/2016 Ot 403.90 HYPTNSV CHR KID DIS, UNSPEC, W CHR KD ST 06/14/2016 Ot 583.81 NEPHRITIS NOS IN OTH DIS 06/14/2016 Ot 585.2 CHRONIC KIDNEY DISEASE, STAGE II (MILD) 06/14/2016 Ot 791.0 PROTEINURIA 06/14/2016 Ot 250.01 DIAB LONA WO COMPL, TYPE I [JUVENILE TYP 06/14/2016 Ot 272.4 HYPERLIPIDEMIA NEC/NOS 06/14/2016 Ot 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, BENIGN, W CHR KD ST 06/14/2016 Ot 583.81 NEPHRITIS NOS IN OTH DIS 06/14/2016 Ot 585.2 CHRONIC KIDNEY DISEASE, STAGE II (MILD) 06/14/2016 Ot 791.0 PROTEINURIA 06/14/2016 Ot 250.01 DIAB LONA WO COMPL, TYPE I [JUVENILE TYP 06/14/2016 Ot 272.4 HYPERLIPIDEMIA NEC/NOS 06/14/2016 Ot 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, BENIGN, W CHR KD ST 06/14/2016 Ot 583.81 NEPHRITIS NOS IN OTH DIS 06/14/2016 Ot 585.2 CHRONIC KIDNEY DISEASE, STAGE II (MILD) 06/14/2016 Ot 791.0 PROTEINURIA 06/14/2016 Ot 250.40 DIAB W RENAL MANIFEST, TYPE II OR UNSPEC 06/14/2016 Ot 272.4 HYPERLIPIDEMIA NEC/NOS 06/14/2016 Ot 585.2 CHRONIC KIDNEY DISEASE, STAGE II (MILD) 06/14/2016 Ot 791.0 PROTEINURIA 06/14/2016 Ot 453.40 ACUTE VENOUS EMBOLISM THROMBOSIS UNSP 06/14/2016 SHEREE BLUNT, BARBARA S Ot 585.3 CHRONIC KIDNEY DISEASE, STAGE III (MODER 06/14/2016 SHEREE BLUNT, AHSAMANTHA S Ot 250.40 DIAB W RENAL MANIFEST, TYPE II OR UNSPEC 06/14/2016 SHEREE BLUNT, AHMED S Ot 272.4 HYPERLIPIDEMIA NEC/NOS 06/14/2016 SHEREE BLUNT, AHMED S Ot 585.2 CHRONIC KIDNEY DISEASE, STAGE II (MILD) 06/14/2016 SHEREE BLUNT, BARBARA S Ot 791.0 PROTEINURIA 06/14/2016 KARY ROWE DO Ot V76.12 OTH SCREEN MAMMO-MALIGN NEOPLASM OF GILMAR 06/14/2016 KARY ROWE DO Ot 611.72 LUMP OR MASS IN BREAST 06/14/2016 SHEREE BLUNT, AHMED S Ot 250.01 DIAB LONA WO COMPL, TYPE I [JUVENILE TYP 06/14/2016 SHEREE BLUNT, FAIZAMED S Ot 272.4 HYPERLIPIDEMIA NEC/NOS 06/14/2016 SHEREE BLUNT, AHMED S Ot 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, BENIGN, W CHR KD ST 06/14/2016 SHEREE BLUNT, BARBARA S Ot 583.81 NEPHRITIS NOS IN OTH DIS 06/14/2016 SHEREE BLUNT, AHMED S Ot 585.2 CHRONIC KIDNEY DISEASE, STAGE II (MILD) 06/14/2016 SHEREE BLUNT, AHMED S Ot 791.0 PROTEINURIA 06/14/2016 NATALIIA VAZQUEZ DO Ot 250.03 DIAB LONA WO COMPL, TYPE I [JUVENILE TYP 06/14/2016 SHEREE BLUNT, AHMED S Ot 250.01 DIAB LONA WO COMPL, TYPE I [JUVENILE TYP 06/14/2016 SHEREE BLUNT, AHMED S Ot 272.4 HYPERLIPIDEMIA NEC/NOS 06/14/2016 SHEREE BLUNT, AHMED S Ot 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, BENIGN, W CHR KD ST 06/14/2016 SHEREE BLUNT, AHMED S Ot 583.81 NEPHRITIS NOS IN OTH DIS 06/14/2016 SHEREE BLUNT, AHMED S Ot 585.2 CHRONIC KIDNEY DISEASE, STAGE II (MILD) 06/14/2016 SHEREE BLUNT, BARBARA S Ot 791.0 PROTEINURIA 06/14/2016 NATALIIA VAZQUEZ DO Ot 250.03 DIAB LONA WO COMPL, TYPE I [JUVENILE TYP 06/14/2016 SOLEDAD CHASEKARY Ot 453.40 ACUTE VENOUS EMBOLISM THROMBOSIS UNSP 06/14/2016 Ot 250.03 DIAB LONA WO COMPL, TYPE I [JUVENILE TYP 06/14/2016 Ot 250.41 DIAB W RENAL MANIFEST, TYPE I [JUVENILE 06/14/2016 Ot 272.4 HYPERLIPIDEMIA NEC/NOS 06/14/2016 Ot 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, BENIGN, W CHR KD ST 06/14/2016 Ot 583.81 NEPHRITIS NOS IN OTH DIS 06/14/2016 Ot 585.2 CHRONIC KIDNEY DISEASE, STAGE II (MILD) 06/14/2016 Ot 791.0 PROTEINURIA 06/14/2016 SHEREE BLUNT, BARBARA S Ot E11.29 TYPE 2 DIABETES MELLITUS W OTH DIABETIC 06/14/2016 SHEREE BLUNT, AHMED S Ot E78.5 HYPERLIPIDEMIA, UNSPECIFIED 06/14/2016 SHEREE BLUNT, AHMED S Ot I12.9 HYPERTENSIVE CHRONIC KIDNEY DISEASE W ST 06/14/2016 SHEREE BLUNT, AHMED S Ot N18.3 CHRONIC KIDNEY DISEASE, STAGE 3 (MODERAT 06/14/2016 SHEREE BLUNT, AHMED S Ot R80.9 PROTEINURIA, UNSPECIFIED 06/14/2016 SHEREE BLUNT, AHMED S Ot E11.21 TYPE 2 DIABETES MELLITUS WITH DIABETIC N 06/14/2016 SHEREE BLUNT, AHMED S Ot 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 06/14/2016 SHEREE BLUNT, BARBARA S Ot E78.5 HYPERLIPIDEMIA, UNSPECIFIED 06/14/2016 SHEREE BLUNT, BARBARA [place] Ot I12.9 HYPERTENSIVE CHRONIC KIDNEY DISEASE W ST 06/14/2016 SHEREE BLUNT, BARBARA [place] Ot N18.2 CHRONIC KIDNEY DISEASE, STAGE 2 (MILD) 06/14/2016 SHEREE BLUNT, BARBARA [place] Ot R80.9 PROTEINURIA, UNSPECIFIED 06/14/2016 SHEREE BLUNT, BARBARA S Ot 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 06/14/2016 VAZQUEZ DO, NATALIIA L Ot E10.65 TYPE 1 DIABETES MELLITUS WITH HYPERGLYCE 06/14/2016 VAZQUEZ DO, NATALIIA L Ot E78.5 HYPERLIPIDEMIA, UNSPECIFIED 06/19/2016 VAZQUEZ DO, NATALIIA L Ot E10.65 TYPE 1 DIABETES MELLITUS WITH HYPERGLYCE 06/19/2016 VAZQUEZ DO, NATALIIA L Ot E78.5 HYPERLIPIDEMIA, UNSPECIFIED 06/27/2016 VAZQUEZ DO, NATALIIA L Ot E10.65 TYPE 1 DIABETES MELLITUS WITH HYPERGLYCE 06/27/2016 VAZQUEZ DO, NATALIIA L Ot E78.5 HYPERLIPIDEMIA, UNSPECIFIED 07/07/2017 Ot 250.01 DIAB LONA WO COMPL, TYPE I [JUVENILE TYP 07/07/2017 Ot 272.4 HYPERLIPIDEMIA NEC/NOS 07/07/2017 Ot 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, BENIGN, W CHR KD ST 07/07/2017 Ot 583.81 NEPHRITIS NOS IN OTH DIS 07/07/2017 Ot 585.2 CHRONIC KIDNEY DISEASE, STAGE II (MILD) 07/07/2017 Ot 791.0 PROTEINURIA 07/07/2017 Ot 250.40 DIAB W RENAL MANIFEST, TYPE II OR UNSPEC 07/07/2017 Ot 272.4 HYPERLIPIDEMIA NEC/NOS 07/07/2017 Ot 585.2 CHRONIC KIDNEY DISEASE, STAGE II (MILD) 07/07/2017 Ot 791.0 PROTEINURIA 07/07/2017 Ot 453.40 ACUTE VENOUS EMBOLISM THROMBOSIS UNSP 07/07/2017 SHEREE BLUNT, BARBARA [place] Ot 585.3 CHRONIC KIDNEY DISEASE, STAGE III (MODER 07/07/2017 SHEREE BLUNT, AHMED S Ot 250.40 DIAB W RENAL MANIFEST, TYPE II OR UNSPEC 07/07/2017 SHEREE BLUNT, AHMED S Ot 272.4 HYPERLIPIDEMIA NEC/NOS 07/07/2017 SHEREE BLUNT, AHMED S Ot 585.2 CHRONIC KIDNEY DISEASE, STAGE II (MILD) 07/07/2017 SHEREE BLUNT, AHMED S Ot 791.0 PROTEINURIA 07/07/2017 GELLENSHANNON KARY A Ot V76.12 OTH SCREEN MAMMO-MALIGN NEOPLASM OF [place] 07/07/2017 GELWINSTONDER DO, KARY A Ot 611.72 LUMP OR MASS IN BREAST 07/07/2017 SHEREE BLUNT, AHMED S Ot 250.01 DIAB LONA WO COMPL, TYPE I [JUVENILE TYP 07/07/2017 SHEREE BLUNT, AHMED S Ot 272.4 HYPERLIPIDEMIA NEC/NOS 07/07/2017 SHEREE BLUNT, AHMED S Ot 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, BENIGN, W CHR KD ST 07/07/2017 SHEREE BLUNT, AHMED S Ot 583.81 NEPHRITIS NOS IN OTH DIS 07/07/2017 SHEREE BLUNT, AHMED S Ot 585.2 CHRONIC KIDNEY DISEASE, STAGE II (MILD) 07/07/2017 SHEREE BLUNT, AHMED S Ot 791.0 PROTEINURIA 07/07/2017 VAZQUEZ DO, NATALIIA L Ot 250.03 DIAB LONA WO COMPL, TYPE I [JUVENILE TYP 07/07/2017 SHEREE BLUNT, AHMED S Ot 250.01 DIAB LONA WO COMPL, TYPE I [JUVENILE TYP 07/07/2017 SHEREE BLUNT, AHMED S Ot 272.4 HYPERLIPIDEMIA NEC/NOS 07/07/2017 SHEREE BLUNT, AHMED S Ot 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, BENIGN, W CHR KD ST 07/07/2017 SHEREE BLUNT, AHMED S Ot 583.81 NEPHRITIS NOS IN OTH DIS 07/07/2017 SHEREE BLUNT, AHMED S Ot 585.2 CHRONIC KIDNEY DISEASE, STAGE II (MILD) 07/07/2017 SHEREE BLUNT, AHMED S Ot 791.0 PROTEINURIA 07/07/2017 VAZQUEZ DO, NATALIIA L Ot 250.03 DIAB LONA WO COMPL, TYPE I [JUVENILE TYP 07/07/2017 GELKARY PURDY DO Ot 453.40 ACUTE VENOUS EMBOLISM THROMBOSIS UNSP 07/07/2017 Ot 250.03 DIAB LONA WO COMPL, TYPE I [JUVENILE TYP 07/07/2017 Ot 250.41 DIAB W RENAL MANIFEST, TYPE I [JUVENILE 07/07/2017 Ot 272.4 HYPERLIPIDEMIA NEC/NOS 07/07/2017 Ot 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, BENIGN, W CHR KD ST 07/07/2017 Ot 583.81 NEPHRITIS NOS IN OTH DIS 07/07/2017 Ot 585.2 CHRONIC KIDNEY DISEASE, STAGE II (MILD) 07/07/2017 Ot 791.0 PROTEINURIA 07/07/2017 SHEREE BLUNT, FAIZAMED S Ot E11.29 TYPE 2 DIABETES MELLITUS W OTH DIABETIC 07/07/2017 SHEREE BLUNT, FAIZAMED S Ot E78.5 HYPERLIPIDEMIA, UNSPECIFIED 07/07/2017 SHEREE BLUNT, AHMED S Ot I12.9 HYPERTENSIVE CHRONIC KIDNEY DISEASE W ST 07/07/2017 SHEREE BLUNT, AHMED S Ot N18.3 CHRONIC KIDNEY DISEASE, STAGE 3 (MODERAT 07/07/2017 SHEREE BLUNT, AHMED S Ot R80.9 PROTEINURIA, UNSPECIFIED 07/07/2017 SHEREE BLUNT, AHMED S Ot E11.21 TYPE 2 DIABETES MELLITUS WITH DIABETIC N 07/07/2017 SHEREE BLUNT, AHMED S Ot 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 07/07/2017 SHEREE BLUNT, AHMED S Ot E78.5 HYPERLIPIDEMIA, UNSPECIFIED 07/07/2017 SHEREE BLUNT, AHMED S Ot I12.9 HYPERTENSIVE CHRONIC KIDNEY DISEASE W ST 07/07/2017 SHEREE BLUNT, AHMED S Ot N18.2 CHRONIC KIDNEY DISEASE, STAGE 2 (MILD) 07/07/2017 SHEREE BLUNT, AHMED S Ot R80.9 PROTEINURIA, UNSPECIFIED 07/07/2017 SHEREE BLUNT, AHMED S Ot Z79.899 OTHER [facility] (CURRENT) DRUG THERAPY 07/07/2017 NATALIIA VAZQUEZ DO Ot E10.65 TYPE 1 DIABETES MELLITUS WITH HYPERGLYCE 07/07/2017 NATALIIA VAZQUEZ DO Ot E78.5 HYPERLIPIDEMIA, UNSPECIFIED 07/07/2017 NATALIIA VAZQUEZ DO Ot E10.65 TYPE 1 DIABETES MELLITUS WITH HYPERGLYCE 07/07/2017 NATALIIA VAZQUEZ DO Ot E78.5 HYPERLIPIDEMIA, UNSPECIFIED 07/22/2017 LIZET MAS APRN Ot E11.9 TYPE 2 DIABETES MELLITUS WITHOUT COMPLIC 07/22/2017 LIZET MAS APRN Ot J45.909 UNSPECIFIED ASTHMA, UNCOMPLICATED 07/22/2017 LIZET MAS APRN Ot K21.9 GASTRO-ESOPHAGEAL REFLUX DISEASE WITHOUT 07/22/2017 LIZET MAS APRN Ot M06.9 RHEUMATOID ARTHRITIS, UNSPECIFIED 07/22/2017 LIZET MAS APRN Ot M19.90 UNSPECIFIED OSTEOARTHRITIS, UNSPECIFIED 07/22/2017 LIZET MAS APRN Ot R10.31 RIGHT LOWER QUADRANT PAIN 07/22/2017 LIZET MAS APRN Ot R11.2 NAUSEA WITH VOMITING, UNSPECIFIED 07/22/2017 LIZET MAS APRN Ot R94.5 ABNORMAL RESULTS OF LIVER FUNCTION STUDI 07/22/2017 LIZET MAS APRN Ot Z79.01 [facility] (CURRENT) USE OF ANTICOAGULANT 07/22/2017 LIZET MAS APRN Ot 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 07/22/2017 LIZET MAS APRN Ot Z82.49 FAMILY HX OF ISCHEM HEART DIS AND OTH DI 07/22/2017 LIZET MAS APRN Ot Z86.718 PERSONAL HISTORY OF OTHER VENOUS THROMBO 07/22/2017 LIZET MAS APRN Ot Z87.01 PERSONAL HISTORY OF PNEUMONIA (RECURRENT 07/22/2017 LIZET MAS APRN Ot Z87.19 PERSONAL HISTORY OF OTHER DISEASES OF TH 07/22/2017 LIZET MAS APRN Ot Z90.710 ACQUIRED ABSENCE OF BOTH CERVIX AND UTER 07/22/2017 LIZET MAS APRN Ot Z90.89 ACQUIRED ABSENCE OF OTHER ORGANS 07/22/2017 NATALIIA VAZQUEZ DO Ot E10.65 TYPE 1 DIABETES MELLITUS WITH HYPERGLYCE 09/09/2017 KARY ROWE DO Ot R73.9 HYPERGLYCEMIA, UNSPECIFIED 09/09/2017 GELLENKARY QUESADA DO Ot R74.8 ABNORMAL LEVELS OF OTHER SERUM ENZYMES 04/15/2018 VAZQUEZ DO, NATALIIA L Ot E10.65 TYPE 1 DIABETES MELLITUS WITH HYPERGLYCE 04/15/2018 VAZQUEZ DO, NATALIIA L Ot N18.9 CHRONIC KIDNEY DISEASE, UNSPECIFIED 05/04/2018 VAZQUEZ DO, NATALIIA L Ot E10.65 TYPE 1 DIABETES MELLITUS WITH HYPERGLYCE 05/04/2018 VAZQUEZ DO, NATALIIA L Ot N18.9 CHRONIC KIDNEY DISEASE, UNSPECIFIED 07/23/2018 Ot 453.40 ACUTE VENOUS EMBOLISM THROMBOSIS UNSP 07/23/2018 SHEREE BLUNT, BARBARA S Ot 585.3 CHRONIC KIDNEY DISEASE, STAGE III (MODER 07/23/2018 SHEREE BLUNT, FAIZAMED S Ot 250.40 DIAB W RENAL MANIFEST, TYPE II OR UNSPEC 07/23/2018 SHEREE BLUNT, AHMED S Ot 272.4 HYPERLIPIDEMIA NEC/NOS 07/23/2018 SHEREE BLUNT, BARBARA S Ot 585.2 CHRONIC KIDNEY DISEASE, STAGE II (MILD) 07/23/2018 SHEREE BLUNT, AHMED S Ot 791.0 PROTEINURIA 07/23/2018 SOLEDAD KARY CHASE Ot V76.12 OTH SCREEN MAMMO-MALIGN NEOPLASM OF GILMAR 07/23/2018 KARY ROWE DO Ot 611.72 LUMP OR MASS IN BREAST 07/23/2018 SHEREE BLUNT, AHMED S Ot 250.01 DIAB LONA WO COMPL, TYPE I [JUVENILE TYP 07/23/2018 SHEREE BLUNT, BARBARA S Ot 272.4 HYPERLIPIDEMIA NEC/NOS 07/23/2018 SHEREE BLUNT, AHMED S Ot 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, BENIGN, W CHR KD ST 07/23/2018 SHEREE BLUNT, AHMED S Ot 583.81 NEPHRITIS NOS IN OTH DIS 07/23/2018 SHEREE BLUNT, AHSAMANTHA S Ot 585.2 CHRONIC KIDNEY DISEASE, STAGE II (MILD) 07/23/2018 SHEREE BLUNT, FAIZAMED S Ot 791.0 PROTEINURIA 07/23/2018 VAZQUEZ DO, NATALIIA L Ot 250.03 DIAB LONA WO COMPL, TYPE I [JUVENILE TYP 07/23/2018 SHEREE BLUNT, AHMED S Ot 250.01 DIAB LONA WO COMPL, TYPE I [JUVENILE TYP 07/23/2018 SHEREE BLUNT, AHMED S Ot 272.4 HYPERLIPIDEMIA NEC/NOS 07/23/2018 SHEREE BLUNT, AHMED S Ot 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, BENIGN, W CHR KD ST 07/23/2018 SHEREE BLUNT, AHMED S Ot 583.81 NEPHRITIS NOS IN OTH DIS 07/23/2018 SHEREE BLUNT, AHMED S Ot 585.2 CHRONIC KIDNEY DISEASE, STAGE II (MILD) 07/23/2018 SHEREE BLUNT, AHMED S Ot 791.0 PROTEINURIA 07/23/2018 GEORGE CHASE NATALIIA Clayton Ot 250.03 DIAB LONA WO COMPL, TYPE I [JUVENILE TYP 07/23/2018 SOLEDAD CHASE KARY A Ot 453.40 ACUTE VENOUS EMBOLISM THROMBOSIS UNSP 07/23/2018 Ot 250.03 DIAB LONA WO COMPL, TYPE I [JUVENILE TYP 07/23/2018 Ot 250.41 DIAB W RENAL MANIFEST, TYPE I [JUVENILE 07/23/2018 Ot 272.4 HYPERLIPIDEMIA NEC/NOS 07/23/2018 Ot 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, BENIGN, W CHR KD ST 07/23/2018 Ot 583.81 NEPHRITIS NOS IN OTH DIS 07/23/2018 Ot 585.2 CHRONIC KIDNEY DISEASE, STAGE II (MILD) 07/23/2018 Ot 791.0 PROTEINURIA 07/23/2018 SHEREE BLUNT, AHMED S Ot E11.29 TYPE 2 DIABETES MELLITUS W OTH DIABETIC 07/23/2018 SHEREE BLUNT, AHMED S Ot E78.5 HYPERLIPIDEMIA, UNSPECIFIED 07/23/2018 SHEREE BLUNT, AHMED S Ot I12.9 HYPERTENSIVE CHRONIC KIDNEY DISEASE W ST 07/23/2018 SHEREE BLUNT, AHMED S Ot N18.3 CHRONIC KIDNEY DISEASE, STAGE 3 (MODERAT 07/23/2018 SHEREE BLUNT, AHMED S Ot R80.9 PROTEINURIA, UNSPECIFIED 07/23/2018 SHEREE BLUNT, AHMED S Ot E11.21 TYPE 2 DIABETES MELLITUS WITH DIABETIC N 07/23/2018 SHEREE BLUNT, AHMED S Ot 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 07/23/2018 SHEREE BLUNT, BARBARA [place]ibode[place] Ot E78.5 HYPERLIPIDEMIA, UNSPECIFIED 07/23/2018 SHEREE BLUNT, BARBARA [place]ibodeaux Ot I12.9 HYPERTENSIVE CHRONIC KIDNEY DISEASE W ST 07/23/2018 SHEREE BLUNT, BARBARA S Ot N18.2 CHRONIC KIDNEY DISEASE, STAGE 2 (MILD) 07/23/2018 SHEREE BLUNT, BARBARA Thibodeaux Ot R80.9 PROTEINURIA, UNSPECIFIED 07/23/2018 SHEREE BLUNT, BARBARA S Ot Z79.899 OTHER [facility] (CURRENT) DRUG THERAPY 07/23/2018 VAZQUEZ DO, NATALIIA L Ot E10.65 TYPE 1 DIABETES MELLITUS WITH HYPERGLYCE 07/23/2018 VAZQUEZ DO, NATALIIA L Ot E78.5 HYPERLIPIDEMIA, UNSPECIFIED 07/23/2018 VAZQUEZ DO, NATALIIA L Ot E10.65 TYPE 1 DIABETES MELLITUS WITH HYPERGLYCE 07/23/2018 VAZQUEZ DO, NATALIIA L Ot E78.5 HYPERLIPIDEMIA, UNSPECIFIED 07/23/2018 VAZQUEZ DO, NATALIIA L Ot E10.65 TYPE 1 DIABETES MELLITUS WITH HYPERGLYCE 07/23/2018 GELLENDER DO, KARY A Ot R73.9 HYPERGLYCEMIA, UNSPECIFIED 07/23/2018 GELLENDER DO, KARY A Ot R74.8 ABNORMAL LEVELS OF OTHER SERUM ENZYMES 07/23/2018 VAZQUEZ DO, NATALIIA L Ot E10.65 TYPE 1 DIABETES MELLITUS WITH HYPERGLYCE 07/23/2018 VAZQUEZ DO, NATALIIA L Ot N18.9 CHRONIC KIDNEY DISEASE, UNSPECIFIED 08/04/2018 GELLENDER DO, KARY A Ot M25.522 PAIN IN LEFT ELBOW 08/04/2018 GELLENDER DO, KARY A Ot M61.48 OTHER CALCIFICATION OF MUSCLE, OTHER SIT 12/01/2018 SHEREE BLUNT, BARBARA S Ot 585.3 CHRONIC KIDNEY DISEASE, STAGE III (MODER 12/01/2018 SHEREE BLUNT, BARBARA S Ot 250.40 DIAB W RENAL MANIFEST, TYPE II OR UNSPEC 12/01/2018 SHEREE BLUNT, BARBARA S Ot 272.4 HYPERLIPIDEMIA NEC/NOS 12/01/2018 SHEREE BLNUT, BARBARA Thibodeaux Ot 585.2 CHRONIC KIDNEY DISEASE, STAGE II (MILD) 12/01/2018 SHEREE BLUNT, AHMED S Ot 791.0 PROTEINURIA 12/01/2018 SOLEDAD CHASEKARY Ot V76.12 OTH SCREEN MAMMO-MALIGN NEOPLASM OF GILMAR 12/01/2018 SOLEDAD KARY CHASE Ot 611.72 LUMP OR MASS IN BREAST 12/01/2018 SHEREE BLUNT, AHMED S Ot 250.01 DIAB LONA WO COMPL, TYPE I [JUVENILE TYP 12/01/2018 SHEREE BLUNT, AHMED S Ot 272.4 HYPERLIPIDEMIA NEC/NOS 12/01/2018 SHEREE BLUNT, AHMED S Ot 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, BENIGN, W CHR KD ST 12/01/2018 SHEREE BLUNT, AHMED S Ot 583.81 NEPHRITIS NOS IN OTH DIS 12/01/2018 SHEREE BLUNT, AHMED S Ot 585.2 CHRONIC KIDNEY DISEASE, STAGE II (MILD) 12/01/2018 SHEREE BLUNT, AHMED S Ot 791.0 PROTEINURIA 12/01/2018 MARJORIE VAZQUEZ DOISON L Ot 250.03 DIAB LONA WO COMPL, TYPE I [JUVENILE TYP 12/01/2018 SHEREE BLUNT, AHMED S Ot 250.01 DIAB LONA WO COMPL, TYPE I [JUVENILE TYP 12/01/2018 SHEREE BLUNT, AHMED S Ot 272.4 HYPERLIPIDEMIA NEC/NOS 12/01/2018 SHEREE BLUNT, AHMED S Ot 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, BENIGN, W CHR KD ST 12/01/2018 SHEREE BLUNT, AHMED S Ot 583.81 NEPHRITIS NOS IN OTH DIS 12/01/2018 SHEREE BLUNT, AHMED S Ot 585.2 CHRONIC KIDNEY DISEASE, STAGE II (MILD) 12/01/2018 SHEREE BLUNT, AHMED S Ot 791.0 PROTEINURIA 12/01/2018 MARJORIE VAZQUEZ DOISON L Ot 250.03 DIAB LONA WO COMPL, TYPE I [JUVENILE TYP 12/01/2018 RAHWINSTONSHANNONKARY Ot 453.40 ACUTE VENOUS EMBOLISM THROMBOSIS UNSP 12/01/2018 Ot 250.03 DIAB LONA WO COMPL, TYPE I [JUVENILE TYP 12/01/2018 Ot 250.41 DIAB W RENAL MANIFEST, TYPE I [JUVENILE 12/01/2018 Ot 272.4 HYPERLIPIDEMIA NEC/NOS 12/01/2018 Ot 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, BENIGN, W CHR KD ST 12/01/2018 Ot 583.81 NEPHRITIS NOS IN OTH DIS 12/01/2018 Ot 585.2 CHRONIC KIDNEY DISEASE, STAGE II (MILD) 12/01/2018 Ot 791.0 PROTEINURIA 12/01/2018 SHEREE BLUNT, AHMED S Ot E11.29 TYPE 2 DIABETES MELLITUS W OTH DIABETIC 12/01/2018 SHEREE BLUNT, AHMED S Ot E78.5 HYPERLIPIDEMIA, UNSPECIFIED 12/01/2018 SHEREE BLUNT, AHMED S Ot I12.9 HYPERTENSIVE CHRONIC KIDNEY DISEASE W ST 12/01/2018 SHEREE BLUNT, AHMED S Ot N18.3 CHRONIC KIDNEY DISEASE, STAGE 3 (MODERAT 12/01/2018 SHEREE BLUNT, AHMED S Ot R80.9 PROTEINURIA, UNSPECIFIED 12/01/2018 SHEREE BLUNT, AHMED S Ot E11.21 TYPE 2 DIABETES MELLITUS WITH DIABETIC N 12/01/2018 SHEREE BLUNT, AHMED S Ot 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 12/01/2018 SHEREE BLUNT, AHMED S Ot E78.5 HYPERLIPIDEMIA, UNSPECIFIED 12/01/2018 SHEREE BLUNT, AHMED S Ot I12.9 HYPERTENSIVE CHRONIC KIDNEY DISEASE W ST 12/01/2018 SHEREE BLUNT, AHMED S Ot N18.2 CHRONIC KIDNEY DISEASE, STAGE 2 (MILD) 12/01/2018 SHEREE BLUNT, AHMED S Ot R80.9 PROTEINURIA, UNSPECIFIED 12/01/2018 SHEREE BLUNT, AHMED S Ot 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 12/01/2018 VAZQUEZ DO, NATALIIA L Ot E10.65 TYPE 1 DIABETES MELLITUS WITH HYPERGLYCE 12/01/2018 VAZQUEZ DO, NATALIIA L Ot E78.5 HYPERLIPIDEMIA, UNSPECIFIED 12/01/2018 VAZQUEZ DO, NATALIIA L Ot E10.65 TYPE 1 DIABETES MELLITUS WITH HYPERGLYCE 12/01/2018 VAZQUEZ DO, NATALIIA L Ot E78.5 HYPERLIPIDEMIA, UNSPECIFIED 12/01/2018 VAZQUEZ DO, NATALIIA L Ot E10.65 TYPE 1 DIABETES MELLITUS WITH HYPERGLYCE 12/01/2018 KARY ROWE DO Ot R73.9 HYPERGLYCEMIA, UNSPECIFIED 12/01/2018 KARY ROWE DO Ot R74.8 ABNORMAL LEVELS OF OTHER SERUM ENZYMES 12/01/2018 NATALIIA VAZQUEZ DO Ot E10.65 TYPE 1 DIABETES MELLITUS WITH HYPERGLYCE 12/01/2018 GEORGE CHASE NATALIIA Arnold Ot N18.9 CHRONIC KIDNEY DISEASE, UNSPECIFIED 12/01/2018 SOLEDAD CHASE KARY Basurto Ot M25.522 PAIN IN LEFT ELBOW 12/01/2018 SOLEDAD CHASE KARY Basurto Ot M61.48 OTHER CALCIFICATION OF MUSCLE, OTHER SIT 12/02/2018 GEORGE CHASE NATALIIA Arnold Ot E10.65 TYPE 1 DIABETES MELLITUS WITH HYPERGLYCE 12/02/2018 GEORGE CHASE NATALIIA Arnold Ot E10.65 TYPE 1 DIABETES MELLITUS WITH HYPERGLYCE 01/06/2019 GEORGE CHASE NATALIIA Arnold Ot N18.9 CHRONIC KIDNEY DISEASE, UNSPECIFIED Procedures Code Description Performed By Performed On 38.7 10/31/2011 Results Test Result Range Comprehensive metabolic panel - 06/14/16 08:48 Serum or plasma sodium measurement (moles/volume) 138 mmol/L 135-145 Serum or plasma potassium measurement (moles/volume) 4.9 mmol/L 3.6-5.0 Serum or plasma chloride measurement (moles/volume) 103 mmol/L 98-107 Carbon dioxide 29 mmol/L 21-32 Serum or plasma anion gap determination (moles/volume) 6 mmol/L 5-14 Serum or plasma urea nitrogen measurement (mass/volume) 26 mg/dL 7-18 Serum or plasma creatinine measurement (mass/volume) 1.30 mg/dL 0.60-1.30 Serum or plasma urea nitrogen/creatinine mass ratio 20 NRG Serum or plasma creatinine measurement with calculation of estimated glomerular filtration rate 43 NRG Serum or plasma glucose measurement (mass/volume) 223 mg/dL 70-105 Serum or plasma calcium measurement (mass/volume) 9.8 mg/dL 8.5-10.1 Serum or plasma total bilirubin measurement (mass/volume) 0.6 mg/dL 0.1-1.0 Serum or plasma alkaline phosphatase measurement (enzymatic activity/volume) 72 U/L 40-136 Serum or plasma aspartate aminotransferase measurement (enzymatic activity/volume) 20 U/L 5-34 Serum or plasma alanine aminotransferase measurement (enzymatic activity/volume) 28 U/L 0-55 Serum or plasma protein measurement (mass/volume) 7.2 g/dL 6.4-8.2 Serum or plasma albumin measurement (mass/volume) 4.2 g/dL 3.2-4.5 Lipid 1996 panel - 06/14/16 08:48 Serum or plasma triglyceride measurement (mass/volume) 118 mg/dL <150 Serum or plasma cholesterol measurement (mass/volume) 213 mg/dL < 200 Serum or plasma cholesterol in HDL measurement (mass/volume) 55 mg/dL 40-60 Cholesterol in LDL [mass/volume] in serum or plasma by direct assay 132 mg/dL 1-129 Serum or plasma cholesterol in VLDL measurement (mass/volume) 24 mg/dL 5-40 THYROID STIMULATING HORMONE - 06/14/16 08:48 THYROID STIMULATING HORMONE 0.80 u[iU]/mL 0.35-4.94 Comprehensive metabolic panel - 07/07/17 07:58 Serum or plasma sodium measurement (moles/volume) 137 mmol/L 135-145 Serum or plasma potassium measurement (moles/volume) 4.6 mmol/L 3.6-5.0 Serum or plasma chloride measurement (moles/volume) 110 mmol/L 98-107 Carbon dioxide 21 mmol/L 21-32 Serum or plasma anion gap determination (moles/volume) 6 mmol/L 5-14 Serum or plasma urea nitrogen measurement (mass/volume) 25 mg/dL 7-18 Serum or plasma creatinine measurement (mass/volume) 1.17 mg/dL 0.60-1.30 Serum or plasma urea nitrogen/creatinine mass ratio 21 NRG Serum or plasma creatinine measurement with calculation of estimated glomerular filtration rate 48 NRG Serum or plasma glucose measurement (mass/volume) 201 mg/dL 70-105 Serum or plasma calcium measurement (mass/volume) 8.8 mg/dL 8.5-10.1 Serum or plasma total bilirubin measurement (mass/volume) 0.7 mg/dL 0.1-1.0 Serum or plasma alkaline phosphatase measurement (enzymatic activity/volume) 66 U/L 40-136 Serum or plasma aspartate aminotransferase measurement (enzymatic activity/volume) 54 U/L 5-34 Serum or plasma alanine aminotransferase measurement (enzymatic activity/volume) 109 U/L 0-55 Serum or plasma protein measurement (mass/volume) 6.6 g/dL 6.4-8.2 Serum or plasma albumin measurement (mass/volume) 3.6 g/dL 3.2-4.5 Lipid 1996 panel - 07/07/17 07:58 Serum or plasma triglyceride measurement (mass/volume) 169 mg/dL <150 Serum or plasma cholesterol measurement (mass/volume) 153 mg/dL < 200 Serum or plasma cholesterol in HDL measurement (mass/volume) 37 mg/dL 40-60 Cholesterol in LDL [mass/volume] in serum or plasma by direct assay 97 mg/dL 1-129 Serum or plasma cholesterol in VLDL measurement (mass/volume) 34 mg/dL 5-40 Cyanocobalamin measurement - 07/07/17 07:58 Vitamin B12 1904 pg/mL 200-1000 25-hydroxyvitamin D measurement - 07/07/17 07:58 25-hydroxy vitamin D measurement 14 % 30-100 Complete blood count (CBC) with automated white blood cell (WBC) differential - 07/22/17 19:45 Blood leukocytes automated count (number/volume) 9.4 10*3/uL 4.3-11.0 Blood erythrocytes automated count (number/volume) 4.92 10*6/uL 4.35-5.85 Venous blood hemoglobin measurement (mass/volume) 15.4 g/dL 11.5-16.0 Blood hematocrit (volume fraction) 46 % 35-52 Automated erythrocyte mean corpuscular volume 93 [foz_us] 80-99 Automated erythrocyte mean corpuscular hemoglobin (mass per erythrocyte) 31 pg 25-34 Automated erythrocyte mean corpuscular hemoglobin concentration measurement (mass/volume) 34 g/dL 32-36 Automated erythrocyte distribution width ratio 13.8 % 10.0- 14.5 Automated blood platelet count (count/volume) 237 10*3/uL 130-400 Automated blood platelet mean volume measurement 10.1 [foz_us] 7.4-10.4 Automated blood neutrophils/100 leukocytes 64 % 42-75 Automated blood lymphocytes/100 leukocytes 25 % 12-44 Blood monocytes/100 leukocytes 8 % 0-12 Automated blood eosinophils/100 leukocytes 3 % 0-10 Automated blood basophils/100 leukocytes 0 % 0-10 Blood neutrophils automated count (number/volume) 6.0 10*3 1.8-7.8 Blood lymphocytes automated count (number/volume) 2.4 10*3 1.0-4.0 Blood monocytes automated count (number/volume) 0.8 10*3 0.0- 1.0 Automated eosinophil count 0.2 10*3/uL 0.0-0.3 Automated blood basophil count (count/volume) 0.0 10*3/uL 0.0-0.1 Comprehensive metabolic panel - 07/22/17 19:45 Serum or plasma sodium measurement (moles/volume) 142 mmol/L 135-145 Serum or plasma potassium measurement (moles/volume) 4.2 mmol/L 3.6-5.0 Serum or plasma chloride measurement (moles/volume) 104 mmol/L 98-107 Carbon dioxide 24 mmol/L 21-32 Serum or plasma anion gap determination (moles/volume) 14 mmol/L 5-14 Serum or plasma urea nitrogen measurement (mass/volume) 25 mg/dL 7-18 Serum or plasma creatinine measurement (mass/volume) 1.29 mg/dL 0.60-1.30 Serum or plasma urea nitrogen/creatinine mass ratio 19 NRG Serum or plasma creatinine measurement with calculation of estimated glomerular filtration rate 43 NRG Serum or plasma glucose measurement (mass/volume) 102 mg/dL 70-105 Serum or plasma calcium measurement (mass/volume) 9.6 mg/dL 8.5-10.1 Serum or plasma total bilirubin measurement (mass/volume) 0.9 mg/dL 0.1-1.0 Serum or plasma alkaline phosphatase measurement (enzymatic activity/volume) 83 U/L 40-136 Serum or plasma aspartate aminotransferase measurement (enzymatic activity/volume) 99 U/L 5-34 Serum or plasma alanine aminotransferase measurement (enzymatic activity/volume) 230 U/L 0-55 Serum or plasma protein measurement (mass/volume) 7.9 g/dL 6.4-8.2 Serum or plasma albumin measurement (mass/volume) 4.1 g/dL 3.2-4.5 Lipase - 07/22/17 19:45 Lipase 144 U/L 8-78 Urine drug screening test - 07/22/17 20:00 Urine phencyclidine detection by screening method NEGATIVE NEGATIVE Urine benzodiazepines detection by screening method NEGATIVE NEGATIVE Urine cocaine detection NEGATIVE NEGATIVE Urine amphetamines detection by screening method NEGATIVE NEGATIVE Urine methamphetamine detection by screening method NEGATIVE NEGATIVE Urine cannabinoids detection by screening method POSITIVE NEGATIVE Urine opiates detection by screening method NEGATIVE NEGATIVE Urine barbiturates detection NEGATIVE NEGATIVE Screening urine tricyclic antidepressants detection NEGATIVE NEGATIVE Urine methadone detection by screening method NEGATIVE NEGATIVE Urine oxycodone detection NEGATIVE NEGATIVE Urine propoxyphene detection NEGATIVE NEGATIVE Complete urinalysis with reflex to culture - 07/22/17 20:00 Urine color determination YELLOW NRG Urine clarity determination SLIGHTLY CLOUDY NRG Urine pH measurement by test strip 8 5-9 Specific gravity of urine by test strip 1.010 1.016-1.022 Urine protein assay by test strip, semi-quantitative 3+ NEGATIVE Urine glucose detection by automated test strip NEGATIVE NEGATIVE Erythrocytes detection in urine sediment by light microscopy 2+ NEGATIVE Urine ketones detection by automated test strip 1+ NEGATIVE Urine nitrite detection by test strip NEGATIVE NEGATIVE Urine total bilirubin detection by test strip NEGATIVE NEGATIVE Urine urobilinogen measurement by automated test strip (mass/volume) NORMAL NORMAL Urine leukocyte esterase detection by dipstick 1+ NEGATIVE Automated urine sediment erythrocyte count by microscopy (number/high power field) [HPF] NRG Automated urine sediment leukocyte count by microscopy (number/high power field) [HPF] NRG Bacteria detection in urine sediment by light microscopy NONE NRG Squamous epithelial cells detection in urine sediment by light microscopy 0-2 NRG Crystals detection in urine sediment by light microscopy NONE NRG Casts detection in urine sediment by light microscopy NONE NRG Mucus detection in urine sediment by light microscopy NEGATIVE NRG Complete urinalysis with reflex to culture NO NRG Complete blood count (CBC) with automated white blood cell (WBC) differential - 08/27/17 08:55 Blood leukocytes automated count (number/volume) 7.0 10*3/uL 4.3-11.0 Blood erythrocytes automated count (number/volume) 5.49 10*6/uL 4.35-5.85 Venous blood hemoglobin measurement (mass/volume) 17.0 g/dL 11.5-16.0 Blood hematocrit (volume fraction) 51 % 35-52 Automated erythrocyte mean corpuscular volume 92 [foz_us] 80-99 Automated erythrocyte mean corpuscular hemoglobin (mass per erythrocyte) 31 pg 25-34 Automated erythrocyte mean corpuscular hemoglobin concentration measurement (mass/volume) 34 g/dL 32-36 Automated erythrocyte distribution width ratio 13.7 % 10.0- 14.5 Automated blood platelet count (count/volume) 227 10*3/uL 130-400 Automated blood platelet mean volume measurement 10.3 [foz_us] 7.4-10.4 Automated blood neutrophils/100 leukocytes 51 % 42-75 Automated blood lymphocytes/100 leukocytes 33 % 12-44 Blood monocytes/100 leukocytes 13 % 0-12 Automated blood eosinophils/100 leukocytes 3 % 0-10 Automated blood basophils/100 leukocytes 1 % 0-10 Blood neutrophils automated count (number/volume) 3.6 10*3 1.8-7.8 Blood lymphocytes automated count (number/volume) 2.3 10*3 1.0-4.0 Blood monocytes automated count (number/volume) 0.9 10*3 0.0- 1.0 Automated eosinophil count 0.2 10*3/uL 0.0-0.3 Automated blood basophil count (count/volume) 0.0 10*3/uL 0.0-0.1 Comprehensive metabolic panel - 08/27/17 08:55 Serum or plasma sodium measurement (moles/volume) 138 mmol/L 135-145 Serum or plasma potassium measurement (moles/volume) 4.2 mmol/L 3.6-5.0 Serum or plasma chloride measurement (moles/volume) 103 mmol/L 98-107 Carbon dioxide 26 mmol/L 21-32 Serum or plasma anion gap determination (moles/volume) 9 mmol/L 5-14 Serum or plasma urea nitrogen measurement (mass/volume) 23 mg/dL 7-18 Serum or plasma creatinine measurement (mass/volume) 1.33 mg/dL 0.60-1.30 Serum or plasma urea nitrogen/creatinine mass ratio 17 NRG Serum or plasma creatinine measurement with calculation of estimated glomerular filtration rate 42 NRG Serum or plasma glucose measurement (mass/volume) 186 mg/dL 70-105 Serum or plasma calcium measurement (mass/volume) 9.9 mg/dL 8.5-10.1 Serum or plasma total bilirubin measurement (mass/volume) 1.2 mg/dL 0.1-1.0 Serum or plasma alkaline phosphatase measurement (enzymatic activity/volume) 83 U/L 40-136 Serum or plasma aspartate aminotransferase measurement (enzymatic activity/volume) 73 U/L 5-34 Serum or plasma alanine aminotransferase measurement (enzymatic activity/volume) 144 U/L 0-55 Serum or plasma protein measurement (mass/volume) 8.3 g/dL 6.4-8.2 Serum or plasma albumin measurement (mass/volume) 4.1 g/dL 3.2-4.5 Lipid 1996 panel - 08/27/17 08:55 Serum or plasma triglyceride measurement (mass/volume) 168 mg/dL <150 Serum or plasma cholesterol measurement (mass/volume) 191 mg/dL < 200 Serum or plasma cholesterol in HDL measurement (mass/volume) 42 mg/dL 40-60 Cholesterol in LDL [mass/volume] in serum or plasma by direct assay 108 mg/dL 1-129 Serum or plasma cholesterol in VLDL measurement (mass/volume) 34 mg/dL 5-40 Hemoglobin A1c - 08/27/17 08:55 Hemoglobin A1c 10.7 % 4.5-6.2 Automated blood complete blood count (hemogram) panel - 04/15/18 08:18 Blood leukocytes automated count (number/volume) 5.2 10*3/uL 4.3-11.0 Blood erythrocytes automated count (number/volume) 4.66 10*6/uL 4.35-5.85 Venous blood hemoglobin measurement (mass/volume) 15.0 g/dL 11.5-16.0 Blood hematocrit (volume fraction) 43 % 35-52 Automated erythrocyte mean corpuscular volume 93 [foz_us] 80-99 Automated erythrocyte mean corpuscular hemoglobin (mass per erythrocyte) 32 pg 25-34 Automated erythrocyte mean corpuscular hemoglobin concentration measurement (mass/volume) 35 g/dL 32-36 Automated erythrocyte distribution width ratio 13.3 % 10.0- 14.5 Automated blood platelet count (count/volume) 232 10*3/uL 130-400 Automated blood platelet mean volume measurement 10.2 [foz_us] 7.4-10.4 Comprehensive metabolic panel - 04/15/18 08:18 Serum or plasma sodium measurement (moles/volume) 135 mmol/L 135-145 Serum or plasma potassium measurement (moles/volume) 4.5 mmol/L 3.6-5.0 Serum or plasma chloride measurement (moles/volume) 104 mmol/L 98-107 Carbon dioxide 23 mmol/L 21-32 Serum or plasma anion gap determination (moles/volume) 8 mmol/L 5-14 Serum or plasma urea nitrogen measurement (mass/volume) 25 mg/dL 7-18 Serum or plasma creatinine measurement (mass/volume) 1.21 mg/dL 0.60-1.30 Serum or plasma urea nitrogen/creatinine mass ratio 21 NRG Serum or plasma creatinine measurement with calculation of estimated glomerular filtration rate 46 NRG Serum or plasma glucose measurement (mass/volume) 310 mg/dL 70-105 Serum or plasma calcium measurement (mass/volume) 9.3 mg/dL 8.5-10.1 Serum or plasma total bilirubin measurement (mass/volume) 0.8 mg/dL 0.1-1.0 Serum or plasma alkaline phosphatase measurement (enzymatic activity/volume) 66 U/L 40-136 Serum or plasma aspartate aminotransferase measurement (enzymatic activity/volume) 68 U/L 5-34 Serum or plasma alanine aminotransferase measurement (enzymatic activity/volume) 133 U/L 0-55 Serum or plasma protein measurement (mass/volume) 7.3 g/dL 6.4-8.2 Serum or plasma albumin measurement (mass/volume) 3.9 g/dL 3.2-4.5 THYROID STIMULATING HORMONE - 04/15/18 08:18 THYROID STIMULATING HORMONE 0.73 u[iU]/mL 0.35-4.94 Urine microalbumin measurement by test strip (mass/volume) - 04/15/18 08:18 Urine creatinine measurement (mass/volume) 166 % NRG Microalbumin [mass/volume] in urine 739.8 % 0.0-20.0 Microalbumin/creatinine [ratio] in urine 445.7 mg/g{Cre} 0.0- 30.0 Cyanocobalamin measurement - 04/15/18 08:18 Vitamin B12 952 pg/mL 190-1100 VITAMIN D 25-HYDROXY - 04/15/18 08:18 VITAMIN D 25-HYDROXY (TOTAL) 25.2 % 30.0-100.0 Automated blood complete blood count (hemogram) panel - 12/01/18 17:23 Blood leukocytes automated count (number/volume) 9.4 10*3/uL 4.3-11.0 Blood erythrocytes automated count (number/volume) 4.76 10*6/uL 4.35-5.85 Venous blood hemoglobin measurement (mass/volume) 14.7 g/dL 11.5-16.0 Blood hematocrit (volume fraction) 44 % 35-52 Automated erythrocyte mean corpuscular volume 93 [foz_us] 80-99 Automated erythrocyte mean corpuscular hemoglobin (mass per erythrocyte) 31 pg 25-34 Automated erythrocyte mean corpuscular hemoglobin concentration measurement (mass/volume) 33 g/dL 32-36 Automated erythrocyte distribution width ratio 13.2 % 10.0- 14.5 Automated blood platelet count (count/volume) 254 10*3/uL 130-400 Automated blood platelet mean volume measurement 10.0 [foz_us] 7.4-10.4 Comprehensive metabolic panel - 12/01/18 17:23 Serum or plasma sodium measurement (moles/volume) 137 mmol/L 135-145 Serum or plasma potassium measurement (moles/volume) 3.6 mmol/L 3.6-5.0 Serum or plasma chloride measurement (moles/volume) 97 mmol/L 98-107 Carbon dioxide 26 mmol/L 21-32 Serum or plasma anion gap determination (moles/volume) 14 mmol/L 5-14 Serum or plasma urea nitrogen measurement (mass/volume) 24 mg/dL 7-18 Serum or plasma creatinine measurement (mass/volume) 1.78 mg/dL 0.60-1.30 Serum or plasma urea nitrogen/creatinine mass ratio 13 NRG Serum or plasma creatinine measurement with calculation of estimated glomerular filtration rate 30 NRG Serum or plasma glucose measurement (mass/volume) 112 mg/dL 70-105 Serum or plasma calcium measurement (mass/volume) 10.1 mg/dL 8.5-10.1 Serum or plasma total bilirubin measurement (mass/volume) 0.8 mg/dL 0.1-1.0 Serum or plasma alkaline phosphatase measurement (enzymatic activity/volume) 92 U/L 40-136 Serum or plasma aspartate aminotransferase measurement (enzymatic activity/volume) 42 U/L 5-34 Serum or plasma alanine aminotransferase measurement (enzymatic activity/volume) 81 U/L 0-55 Serum or plasma protein measurement (mass/volume) 8.7 g/dL 6.4-8.2 Serum or plasma albumin measurement (mass/volume) 4.2 g/dL 3.2-4.5 CALCIUM CORRECTED 9.9 mg/dL 8.5-10.1 Lipid 1996 panel - 12/01/18 17:23 Serum or plasma triglyceride measurement (mass/volume) 231 mg/dL <150 Serum or plasma cholesterol measurement (mass/volume) 280 mg/dL < 200 Serum or plasma cholesterol in HDL measurement (mass/volume) 54 mg/dL 40-60 Cholesterol in LDL [mass/volume] in serum or plasma by direct assay 179 mg/dL 1-129 Serum or plasma cholesterol in VLDL measurement (mass/volume) 46 mg/dL 5-40 THYROID STIMULATING HORMONE - 12/01/18 17:23 THYROID STIMULATING HORMONE 4.84 u[iU]/mL 0.35-4.94 Encounters ACCT No. Visit Date/Time Discharge Status Pt. Type Provider Facility Loc./Unit Complaint [id number] 04/28/2019 13:00:00 04/28/2019 23:59:59 CLS Preadmit AIDAN CHARLES MD [facility] RAD CKD STAGE 3 [id number] 01/05/2019 10:30:00 01/05/2019 23:59:59 CLS Outpatient GEORGE CHASE NATALIIA L [facility] LAB N18.9 [id number] 12/01/2018 17:11:00 12/01/2018 23:59:59 CLS Outpatient GEORGE DO NATALIIA L [facility] LAB E10.65 [id number] 07/23/2018 10:23:00 07/23/2018 23:59:59 CLS Outpatient KARY ROWE DO A [facility] RAD TRAUMA LEFT ELBOW [id number] 04/15/2018 08:02:00 04/15/2018 23:59:59 CLS Outpatient GEORGE DO NATALIIA L [facility] LAB E10.65 [id number] 08/27/2017 08:40:00 08/27/2017 23:59:59 CLS Outpatient KARY ROWE DO [facility] LAB INC LIVER ENZYMES, HYPERGLYCEMIA [id number] 07/22/2017 19:16:00 07/22/2017 23:17:00 DIS Emergency LIZET MAS [employer] [facility] ER VOMITING [id number] 07/07/2017 07:38:00 07/07/2017 23:59:59 CLS Outpatient GEORGE DO NATALIIA L [facility] LAB E10.65 [id number] 06/14/2016 08:31:00 06/14/2016 23:59:59 CLS Outpatient GEORGE DO NATALIIA L [facility] LAB DIABETES MELLITUS TYPE 1 [id number] 04/09/2016 09:58:00 04/09/2016 23:59:59 CLS Outpatient NATALIIA VAZQUEZ DO [facility] LAB [id number] 03/15/2016 09:39:00 03/15/2016 23:59:59 CLS Outpatient BARBARA BENTLEY MD [facility] LAB CHRONIC KIDNEY DISEASE,DIABETES TYPE I,PROTEINURIA [id number] 2016 15:41:00 2016 18:19:00 DIS Emergency KUMAR BLUNT, SUZETTE Ortega [facility] ER LOW BLOOD SUGAR,WITHDRAWAL [id number] 12/12/2015 13:02:00 12/12/2015 23:59:59 CLS Outpatient BARBARA BENTLEY MD [facility] LAB MCFP MED USE, CKD, HYPERLIPIDEMIA, [id number] 05/10/2015 23:17:00 05/11/2015 14:00:00 DIS Inpatient KARY ROWE DO [facility] ICU OVERDOSE,AMS,HYPOTENSION,ACUTE KIDNEY INJURY [id number] 11/08/2014 00:41:00 11/08/2014 23:59:59 CLS Preadmit KARY ROWE DO [facility] LAB DVT [id number] 08/09/2014 13:24:00 11/07/2014 00:01:00 DIS Outpatient KARY ROWE DO [facility] LAB DVT [id number] 08/09/2014 13:19:00 08/09/2014 23:59:59 CLS Outpatient NATALIIA VAZQUEZ DO [facility] LAB DIABETES [id number] 07/15/2014 11:53:00 07/15/2014 23:59:59 CLS Outpatient BARBARA BENTLEY MD [facility] LAB DIABETES,PROTIENURIA, HTN [id number] 05/12/2014 07:48:00 05/12/2014 23:59:59 CLS Outpatient NATALIIA VAZQUEZ DO [facility] LAB DM I [id number] 03/09/2014 11:10:00 03/09/2014 23:59:59 CLS Outpatient BARBARA BENTLEY MD [facility] LAB DIABETES UNCOMPL TYPEI,PROTEINURIA,BENIGN ESSENTIA [id number] 11/25/2013 11:12:00 02/23/2014 00:01:00 DIS Outpatient CRYSTALDIPAK KARY Sb [facility] LAB DVT [id number] 09/17/2013 08:20:00 09/17/2013 23:59:59 CLS Outpatient KARY ROWE DO [facility] RAD BREAST LUMP [id number] 08/26/2013 08:37:00 08/26/2013 23:59:59 CLS Outpatient RAHGURWINDER KARY Basurto [facility] RAD SCREENING [id number] 08/25/2013 15:05:00 08/25/2013 23:59:59 CLS Outpatient BARBARA BENTLEY MD [facility] RAD CHRONIC KIDNEY [id number] 08/19/2013 11:01:00 08/19/2013 23:59:59 CLS Outpatient BARBARA BENTLEY MD [facility] LAB ABNORMALITIES OF BLOOD [id number] 02/03/2015 07:49:00 Document Registration [id number] 02/03/2015 07:45:00 Document Registration [id number] 03/16/2013 00:00:00 Document Registration [id number] 01/01/2013 06:00:00 Document Registration [id number] 12/15/2012 12:50:00 Document Registration [id number] 12/15/2012 12:44:00 Document Registration [id number] 05/29/2012 11:00:00 Document Registration [id number] 04/27/2012 08:25:00 Document Registration [id number] 03/04/2012 11:54:00 Document Registration [id number] 01/20/2012 11:44:00 Document Registration [id number] 01/06/2012 12:34:00 Document Registration [id number] 01/03/2012 08:50:00 Document Registration [id number] 10/29/2011 14:13:00 Document Registration [id number] 10/24/2011 10:27:00 Document Registration [id number] 09/09/2011 11:35:00 Document Registration [id number] 05/29/2011 10:06:00 Document Registration [id number] 04/11/2011 11:54:00 Document Registration [id number] 02/03/2011 11:35:00 Document Registration [id number] 01/11/2011 11:51:00 Document Registration [id number] 11/30/2010 12:55:00 Document Registration [id number] 05/10/2015 21:59:41 ACT Document Registration
[2019-06-27 08:24] LABS: BASOPHILS % (AUTO) 0 % (0-10); EOSINOPHILS % (AUTO) 0 % (0-10); HEMATOCRIT 44 % (35-52); HEMOGLOBIN 14.1 G/DL (11.5-16.0); LYMPHOCYTES % (AUTO) 11 % (12-44); MEAN CORPUSCULAR HEMOGLOBIN 31 PG (25-34); MEAN CORPUSCULAR HGB CONC 32 G/DL (32-36); MEAN CORPUSCULAR VOLUME 97 FL (80-99); MEAN PLATELET VOLUME 10.6 FL (7.4-10.4); MONOCYTES # (AUTO) 1.8 X 10^3 (0.0-1.0); MONOCYTES % (AUTO) 7 % (0-12); NEUTROPHILS # (AUTO) 21.2 X 10^3 (1.8-7.8); NEUTROPHILS % (AUTO) 81 % (42-75); PLATELET COUNT 349 10^3/uL (130-400); RED CELL DISTRIBUTION WIDTH 13.7 % (10.0-14.5); WHITE BLOOD COUNT 26.1 10^3/uL (4.3-11.0)
--- NOTE | 2019-06-27 08:25 | ED GI ---
General Stated Complaint: LETHARGY Source of Information: Patient, EMS Exam Limitations: No Limitations History of Present Illness Date Seen by Provider: Jun 27, 2019 Time Seen by Provider: 08:20 Initial Comments This 54-year-old white female diabetic presents with 2-3 day history of persistent vomiting. This diabetic denies associated hematemesis or black or tarry stools. The patient states that she's been noncompliant on her insulin. Patient denies productive cough, dysuria, or flank pain. Allergies and Home Medications Allergies Coded Allergies: Sulfa (Sulfonamide Antibiotics) (Unverified Allergy, Unknown, 05/11/15) codeine (Verified Allergy, Unknown, TAKES ULTRAM AT HOME, 11/18/08) ketorolac (Verified Allergy, Unknown, 10/05/08) tramadol (Verified Allergy, Unknown, 11/02/11) Home Medications Albuterol 8.5 Gm Hfa.aer.ad, 2 PUFF IH TID PRN for SHORTNESS OF BREATH, (Rep orted) 1 PUFFS Alprazolam 2 Mg Tab.rapdis, 2 MG PO TID PRN for ANXIETY, (Reported) Amlodipine/Valsartan 1 Each Tablet, 1 EACH PO DAILY, (Reported) Cetirizine HCl 10 Mg Tablet, 10 MG PO HS, (Reported) Ezetimibe 10 Mg Tablet, 10 MG PO DAILY, (Reported) Fluticasone Propionate 16 Gm Naspr, 2 SPRAYS NS DAILY, (Reported) Hydrocodone Bit/Acetaminophen 1 Each Tablet, 1 EACH PO BID PRN for PAIN, (Reported) Insulin Aspart 100 Unit/1 Ml Insuln.pen, SQ PER SLIDING SCALE, (Reported) Insulin Glargine,Hum.rec.anlog 100 Unit/1 Ml Vial, 22 UNITS SQ BID, (Reported) Latanoprost 2.5 Ml Drops, 1 DROP OU HS, (Reported) Metoprolol Tartrate 50 Mg Tablet, 50 MG PO BID, (Reported) Nystatin 30 Gm Oint..gm., 0 TOP TID, (Reported) APPLY TO AFFECTED AREA(S) Omeprazole 40 Mg Capsule.dr, 40 MG PO before breakfast, (Reported) Ondansetron 8 Mg Tab.rapdis, 8 MG PO Q6H PRN for NAUSEA/VOMITING-1ST LINE Prescribed by: LIZET MAS on 07/22/17 0807 Simvastatin 40 Mg Tablet, 40 MG PO HS, (Reported) Timolol Maleate 15 Ml Btl, 1 DROP OU DAILY, (Reported) Warfarin Sodium 1 Mg Tablet, 3 MG PO 6 pm, (Reported) TAKE 3 (1 MG) TABLETS WITH THE 5 MG DOSE AT 6 PM Warfarin Sodium 5 Mg Tablet, 5 MG PO 6 pm, (Reported) TAKE 1 (5 MG) TABLET WITH 3 (1 MG) TABLETS AT 6 PM Patient Home Medication List Home Medication List Reviewed: Yes Review of Systems Review of Systems Constitutional: No chills, No fever; malaise EENTM: No Blurred Vision Respiratory: Denies Cough Cardiovascular: Denies Chest Pain Gastrointestinal: Denies Abdominal Pain, Denies Diarrhea; Nausea, Vomiting Genitourinary: Denies Burning, Denies Frequency Musculoskeletal: No back pain Skin: No change in color, No rash Psychiatric/Neurological: No Symptoms Reported Endocrine: No Symptoms Reported Hematologic/Lymphatic: No Symptoms Reported Past Sswjuav-Unteql-Nonyxi Hx Past Med/Social Hx: Reviewed Nursing Past Med/Soc Hx Patient Social History Type Used: Cigarettes 2nd Hand Smoke Exposure: No Recent Foreign Travel: No Contact w/Someone Who Travel: No Recent Hopitalizations: No Immunizations Up To Date Tetanus Booster (TDap): Unknown Date of Pneumonia Vaccine: Aug 17, 2012 Date of Influenza Vaccine: Aug 17, 2012 Seasonal Allergies Seasonal Allergies: No Past Medical History Surgeries: Yes (renal stents) Adenoidectomy, Ear Surgery, Hysterectomy, Tonsillectomy Respiratory: Yes Asthma, Pneumonia, Chronic Bronchitis Cardiac: Yes Deep Vein Thrombosis Neurological: Yes Neuropathy Reproductive Disorders: Yes Female Reproductive Disorders: Menstrual Problems Genitourinary: Yes Renal Failure Gastrointestinal: Yes (gastroparesis) Gastroesophageal Reflux, Pancreatitis, Ulcer Musculoskeletal: Yes Arthritis, Rheumatoid Arthritis, Fractures Endocrine: Yes Diabetes, Insulin dep HEENT: No Tonsilitis Loss of Vision: Denies Hearing Impairment: Denies Cancer: No Psychosocial: Yes Personality Disorder Integumentary: No Blood Disorders: No Adverse Reaction/Blood Tranf: No Family Medical History Heart Disease, Cancer, Diabetes Physical Exam Vital Signs Vital Signs - First Documented 06/27/19 08:26 Temp 97.4 Pulse 131 Resp 28 B/P (MAP) 129/65 (86) Pulse Ox 100 O2 Delivery Room Air Capillary Refill : Height/Weight/BMI Height: 5'5.00" Weight: 205lbs. 0.0oz. 92.321142hc; BMI Method:Stated General Appearance: WD/WN, mild distress HEENT: normal ENT inspection Neck: full range of motion, supple Respiratory: lungs clear, normal breath sounds Cardiovascular: normal peripheral pulses, regular rate, rhythm, no murmur Gastrointestinal: normal bowel sounds, non tender, soft Extremities: normal range of motion, non-tender, normal inspection Back: normal inspection Neurologic/Psychiatric: no motor/sensory deficits, alert Skin: normal color, warm/dry Progress/Results/Core Measures Results/Orders Lab Results Laboratory Tests Test 06/27/19 08:19 Range/Units White Blood Count 26.1 H 4.3-11.0 10^3/uL Red Blood Count 4.51 4.35-5.85 10^6/uL Hemoglobin 14.1 11.5-16.0 G/DL Hematocrit 44 35-52 % Mean Corpuscular Volume 97 80-99 FL Mean Corpuscular Hemoglobin 31 25-34 PG Mean Corpuscular Hemoglobin Concent 32 32-36 G/DL Red Cell Distribution Width 13.7 10.0-14.5 % Platelet Count 349 130-400 10^3/uL Mean Platelet Volume 10.6 H 7.4-10.4 FL Neutrophils (%) (Auto) 81 H 42-75 % Lymphocytes (%) (Auto) 11 L 12-44 % Monocytes (%) (Auto) 7 0-12 % Eosinophils (%) (Auto) 0 0-10 % Basophils (%) (Auto) 0 0-10 % Neutrophils # (Auto) 21.2 H 1.8-7.8 X 10^3 Lymphocytes # (Auto) 3.0 1.0-4.0 X 10^3 Monocytes # (Auto) 1.8 H 0.0-1.0 X 10^3 Eosinophils # (Auto) 0.0 0.0-0.3 10^3/uL Basophils # (Auto) 0.0 0.0-0.1 10^3/uL Neutrophils % (Manual) 83 % Lymphocytes % (Manual) 12 % Monocytes % (Manual) 5 % Eosinophils % (Manual) 0 % Basophils % (Manual) 0 % Band Neutrophils 0 % Blood Morphology Comment NORMAL Sodium Level 129 L 135-145 MMOL/L Potassium Level 6.3 H 3.6-5.0 MMOL/L Chloride Level 88 L 98-107 MMOL/L Carbon Dioxide Level < 5 *L 21-32 MMOL/L Anion Gap 37 H 5-14 MMOL/L Blood Urea Nitrogen 51 H 7-18 MG/DL Creatinine 2.96 H 0.60-1.30 MG/DL Estimat Glomerular Filtration Rate 16 BUN/Creatinine Ratio 17 Glucose Level 919 *H 70-105 MG/DL Calcium Level 9.6 8.5-10.1 MG/DL Corrected Calcium 10.1 8.5-10.1 MG/DL Total Bilirubin 0.4 0.1-1.0 MG/DL Aspartate Amino Transf (AST/SGOT) 32 5-34 U/L Alanine Aminotransferase (ALT/SGPT) 74 H 0-55 U/L Alkaline Phosphatase 127 40-136 U/L Total Protein 7.4 6.4-8.2 GM/DL Albumin 3.4 3.2-4.5 GM/DL Lipase 215 H 8-78 U/L My Orders Orders - JAVY HAGEN MD Cbc With Automated Diff (06/27/19 08:17) Comprehensive Metabolic Panel (06/27/19 08:17) Ua Culture If Indicated (06/27/19 08:17) Ns Iv 1000 Ml (Sodium Chloride 0.9%) (06/27/19 08:30) Lipase (06/27/19 08:17) Ondansetron Injection (Zofran Injectio (06/27/19 08:30) Manual Differential (06/27/19 08:19) Arterial Blood Gas (06/27/19 09:08) Insulin (Regular) Human (Humulin R (Per (06/27/19 09:15) Ekg Tracing (06/27/19 09:15) Troponin I (06/27/19 09:15) Chest 1 View, Ap/Pa Only (06/27/19 09:15) Blood Culture (06/27/19 09:15) Lactic Acid Analyzer (06/27/19 09:15) Medications Given in ED Current Medications Medications Dose Ordered Sig/Nehemias Route Start Time Stop Time Status Last Admin Dose Admin Insulin Human Regular 10 unit ONCE ONCE IV 06/27/19 09:15 06/27/19 09:16 DC 06/27/19 09:23 10 UNIT Ondansetron HCl 4 mg ONCE ONCE IVP 8/11/19 08:30 06/27/19 08:31 DC 06/27/19 08:31 4 MG Vital Signs/I&O 06/27/19 08:26 Temp 97.4 Pulse 131 Resp 28 B/P (MAP) 129/65 (86) Pulse Ox 100 O2 Delivery Room Air Progress Progress Note : Time: 09:30 Progress Note The patient's glucose was 919. Her potassium was north of 6. Her CO2 was less than 5. ABGs are pending. Initial treatment consisted of 2 L bolus of normal saline. 10 units of regular insulin IV were given. Telephone consultation with Dr. Mason was undertaken. The patient was admitted to the ICU. I've written orders for her to have a third liter bolus of normal saline. I initiated her insulin drip at 5 units per hour with an additional 5 unit bolus of regular insulin IV. Critical Care Note Critical Care Start Time: 09:32 Stop Time: 10:15 Total Time (minutes) The patient's DKA was treated with rapid 2 L fluid bolus of normal saline, IV regular insulin, an admission to the ICU. Patient's nausea was treated with IV Zofran. Repeat glucose at the bedside prior to transfer to the ICU was requested. Departure Communication (Admissions) Time/Spoke to Admitting Phy: 09:34 Dr. Corbin Impression Primary Impression: DKA (diabetic ketoacidoses) Qualified Codes: E10.10 - Type 1 diabetes mellitus with ketoacidosis without coma Disposition: ADMITTED INPATIENT Condition: Improved Admissions Decision to Admit Reason: Admit from ER (General) Decision to Admit/Date: Jun 27, 2019 Time/Decision to Admit Time: 09:33 Departure-Patient Inst. Referrals: KARY ROWE DO (PCP/Family) Primary Care Physician JAVY HAGEN MD Jun 27, 2019 08:25
[2019-06-27] MEDS ORDERED: ONDANSETRON 4 MG/2 ML (SDV) Z0FRAN IVP ONE (08:30)
[2019-06-27] MEDS: NS IV 1000 ML 1,000 ML IV SCH ×6 (08:31→13:50)
[2019-06-27 08:50] LABS: ALANINE AMINOTRANSFERASE 74 U/L (0-55); ALBUMIN 3.4 GM/DL (3.2-4.5); ALKALINE PHOSPHATASE 127 U/L (40-136); BAND NEUTROPHILS 0 %; BASOPHILS % (MANUAL) 0 %; BILIRUBIN,TOTAL 0.4 MG/DL (0.1-1.0); BUN/CREATININE RATIO 17; CALCIUM 9.6 MG/DL (8.5-10.1); CHLORIDE 88 MMOL/L (98-107); CREATININE SERUM 2.96 MG/DL (0.60-1.30); EOSINOPHILS % (MANUAL) 0 %; GFR ESTIMATED 16; LIPASE 215 U/L (8-78); LYMPHOCYTES % (MANUAL) 12 %; MONOCYTES % (MANUAL) 5 %; NEUTROPHILS % (MANUAL) 83 %; POTASSIUM 6.3 MMOL/L (3.6-5.0); RBC MORPH NORMAL; SODIUM 129 MMOL/L (135-145); TOTAL PROTEIN 7.4 GM/DL (6.4-8.2)
[2019-06-27 09:04] LABS: CARBON DIOXIDE < 5 MMOL/L (21-32); GLUCOSE 919 MG/DL (70-105)
[2019-06-27] MEDS ORDERED: inSUlin (REGULAR) HUMAN 1 UNIT/0.01 ML (CHARGE PER UNIT) IV ONE (09:15)
[2019-06-27 09:45] LABS: ABG BASE EXCESS -25.7 MMOL/L (-2.5-2.5); ABG OXYGEN SATURATION 98 % (94-100); ABG PO2 127 MMHG (79-93); ABG TCO2 3.4 MMOL/L (21.0-31.0)
[2019-06-27 09:50] LABS: ABG PCO2 11 MMHG (35-45); ABG PH 7.07 (7.37-7.43)
--- NOTE | 2019-06-27 09:50 | Diagnostic Imaging Report ---
Examination: Single frontal view of the chest. Indication: Vomiting. Comparison: Multiple priors, most recent performed on 05/11/2015. Findings: The lungs are clear and the pulmonary vasculature is normal. No pneumothorax or a large pleural effusion. The cardio mediastinal silhouette is normal. No acute osseous abnormality is appreciated. Radiopaque metallic density overlies the visualized left upper abdomen, presumably outside the patient. Impression: No radiographic evidence of acute chest disease. Radiopaque metallic density overlies the left upper abdomen, presumably outside the patient. Dictated by: Dictated on workstation # [id number]
[2019-06-27 09:51] LABS: ALLENS TEST YES-POS; PATIENT TEMP 97.6; VENTILATOR NO
[2019-06-27 10:14] LABS: BUN/CREATININE RATIO 19; CALCIUM 8.9 MG/DL (8.5-10.1); CHLORIDE 94 MMOL/L (98-107); CREATININE SERUM 2.74 MG/DL (0.60-1.30); GFR ESTIMATED 18; SODIUM 132 MMOL/L (135-145)
[2019-06-27 10:24] LABS: CARBON DIOXIDE < 5 MMOL/L (21-32); GLUCOSE 852 MG/DL (70-105)
[2019-06-27] MEDS ORDERED: inSUlin REGULAR TPN/DRIP 250 UNITS/NS 250 ML IV SCH ×2 (10:30)
[2019-06-27 11:07] LABS: HEMOGLOBIN 13.2 G/DL (11.5-16.0); MEAN PLATELET VOLUME 10.6 FL (7.4-10.4); RED CELL DISTRIBUTION WIDTH 13.3 % (10.0-14.5)
[2019-06-27 11:30] LABS: BUN/CREATININE RATIO 20; CALCIUM 8.3 MG/DL (8.5-10.1); CHLORIDE 100 MMOL/L (98-107); GFR ESTIMATED 19; POTASSIUM 5.1 MMOL/L (3.6-5.0); SODIUM 134 MMOL/L (135-145)
[2019-06-27 11:31] LABS: CARBON DIOXIDE < 5 MMOL/L (21-32)
[2019-06-27 11:32] LABS: GLUCOSE 691 MG/DL (70-105)
[2019-06-27] MEDS ORDERED: INSU100I40 SQ (11:42)
[2019-06-27] MEDS ORDERED: INSU300I SQ (11:42)
[2019-06-27] MEDS ORDERED: MONT10TA24 PO (11:44)
[2019-06-27] MEDS ORDERED: METO10TA3 PO (11:44)
[2019-06-27] MEDS ORDERED: ATOR40TA70 PO (11:44)
[2019-06-27] MEDS: ONDANSETRON 4 MG/2 ML (SDV) Z0FRAN IV PRN ×2 (11:48→16:39)
[2019-06-27] MEDS ORDERED: NIAC500T24 PO (11:52)
[2019-06-27] MEDS ORDERED: NF-MAG64T PO (11:52)
[2019-06-27] MEDS ORDERED: POTA99TA21 PO (11:52)
[2019-06-27 12:49] LABS: BUN/CREATININE RATIO 20; CALCIUM 8.4 MG/DL (8.5-10.1); CHLORIDE 104 MMOL/L (98-107); CREATININE SERUM 2.42 MG/DL (0.60-1.30); GFR ESTIMATED 21; POTASSIUM 4.5 MMOL/L (3.6-5.0); SODIUM 136 MMOL/L (135-145)
[2019-06-27 12:52] LABS: CARBON DIOXIDE < 5 MMOL/L (21-32)
[2019-06-27 12:53] LABS: GLUCOSE 649 MG/DL (70-105)
--- NOTE | 2019-06-27 12:57 | NUR ---
UNABLE TO GET 1200 BLOOD SUGAR RESULTS FROM GLUCOMETER, BLOOD DRAWN AND SENT TO LAB, RESULTS RECEIVED AT THIS TIME. NO CHANGE IN GTT PER PROTOCOL.
[2019-06-27] MEDS: D5 1/2 NS 1000 ML IV SOLUTION 1,000 ML IV SCH ×4 (13:51→23:57)
[2019-06-27] MEDS: 1/2 NS IV SOLUTION 1,000 ML IV SCH ×4 (14:23→21:36)
[2019-06-27] MEDS: POTASSIUM CL 10MEQ/50ML IVPB 50 ML IV SCH ×6 (14:23→23:30)
[2019-06-27 14:40] LABS: BILIRUBIN,URINE NEGATIVE (NEGATIVE); CLARITY,URINE CLEAR; COLOR,URINE YELLOW; GLUCOSE, URINE (UA) 4+ (NEGATIVE); KETONES,URINE 4+ (NEGATIVE); LEUKOCYTE ESTERASE ,URINE NEGATIVE (NEGATIVE); NITRITE,URINE NEGATIVE (NEGATIVE); PH,URINE 5 (5-9); PROTEIN,URINE 3+ (NEGATIVE); UROBILINOGEN,URINE NORMAL (NORMAL)
[2019-06-27 14:46] LABS: RBC,URINE 0-2 /HPF
[2019-06-27 14:47] LABS: BACTERIA,URINE TRACE /HPF
[2019-06-27 15:34] LABS: CALCIUM 8.8 MG/DL (8.5-10.1); CREATININE SERUM 2.28 MG/DL (0.60-1.30); POTASSIUM 4.7 MMOL/L (3.6-5.0)
[2019-06-27] MEDS ORDERED: ALBUTEROL IH PRN (15:45)
[2019-06-27 16:36] LABS: AMPHETAMINE SCREEN, URINE NEGATIVE (NEGATIVE); BARBITURATE SCREEN URINE NEGATIVE (NEGATIVE); BENZODIAZEPINES SCREEN URINE NEGATIVE (NEGATIVE); CANNABINOID SCREEN, URINE NEGATIVE (NEGATIVE); COCAINE SCREEN URINE NEGATIVE (NEGATIVE); METHADONE STAT NEGATIVE (NEGATIVE); METHAMPHETAMINE SCREEN URINE S NEGATIVE (NEGATIVE); OPIATE SCREEN URINE NEGATIVE (NEGATIVE); OXYCODONE STAT NEGATIVE (NEGATIVE); PROPOXYPHENE STAT NEGATIVE (NEGATIVE); TRICYCLIC ANTIDEPRESSANTS SCRE NEGATIVE (NEGATIVE)
[2019-06-27] MEDS: METOCLOPRAMIDE 10 MG (REGLAN) TAB PO SCH ×2 (16:39→19:59)
--- NOTE | 2019-06-27 16:41 | History & Physical-Hospitalist ---
History of Present Illness HPI/Chief Complaint Erin Woods is a 54yoF with PMH IDDM (likely type 1) with a history of non- adherence, HLD, seasonal allergies, methamphetamine abuse, who presented to the ER with weakness and vomiting. She reports a two day history of feeling ill. She reports subjective fevers. She reports dyspnea. She denies cough. She denies chest pain. She denies dysuria. She reports vague abdominal pain. She also reports diffuse back pain. She is requesting narcotics to treat her pain. She reports taking her long acting insulin, but says she hasn't taken her short acting because she hasn't been eating. She denies methamphetamine use and other IV drug use. She reports using CBD oils and maybe some marijuana. Source: patient Exam Limitations: no limitations Date Seen 06/27/19 Time Seen by a Provider: 16:00 Attending Physician Noemí Raphael MD PCP Jack Aguilera DO Referring Physician Date of Admission Jun 27, 2019 at 09:18 Home Medications & Allergies Home Medications Reviewed patient Home Medication Reconciliation performed by pharmacy medication reconciliations video game technician and/or nursing. Patients Allergies have been reviewed. Allergies Allergies Coded Allergies Sulfa (Sulfonamide Antibiotics) (Unverified Allergy, Unknown, 05/11/15) codeine (Verified Allergy, Unknown, TAKES ULTRAM AT HOME, 11/18/08) ketorolac (Verified Allergy, Unknown, 10/05/08) tramadol (Verified Allergy, Unknown, 11/02/11) Past Btmqxmv-Urernw-Wgdmsq Hx Past Med/Social Hx: Reviewed Nursing Past Med/Soc Hx Patient Social History Alcohol Use: Occasionally Uses Recreational Drug Use: Yes Drug of Choice: THC Smoking Status: Current Everyday Smoker Type Used: Cigarettes 2nd Hand Smoke Exposure: No Recent Foreign Travel: No Contact w/other who traveled: No Recent Hopitalizations: No Recent Infectious Disease Expo: No Immunizations Up To Date Tetanus Booster (TDap): Unknown Date of Pneumonia Vaccine: Aug 17, 2012 Date of Influenza Vaccine: Aug 17, 2012 Seasonal Allergies Seasonal Allergies: No Past Medical History Surgeries: Adenoidectomy, Ear Surgery, Hysterectomy, Tonsillectomy Cardiac: Deep Vein Thrombosis Neurological: Neuropathy Reproductive: Yes Female Reproductive Disorders: Menstrual Problems Genitourinary: Renal Failure Gastrointestinal: Gastroesophageal Reflux, Pancreatitis, Ulcer Musculoskeletal: Arthritis, Rheumatoid Arthritis, Fractures Endocrine: Diabetes, Insulin dep HEENT: Tonsilitis Loss of Vision: Denies Hearing Impairment: Denies Psychosocial: Personality Disorder History of Blood Disorders: No Adverse Reaction to Blood High: No Family History FH: thyroid cancer G8 SISTER FHx: macular degeneration 19 MOTHER Glaucoma G8 BROTHER Heart Disease, Cancer, Diabetes Review of Systems Constitutional: fever, malaise, weakness EENTM: no symptoms reported Respiratory: No cough; short of breath Cardiovascular: No chest pain Gastrointestinal: abdominal pain; No constipation, No diarrhea; nausea, vomiting Genitourinary: No dysuria Musculoskeletal: back pain, muscle pain Skin: no symptoms reported Psychiatric/Neurological: No Symptoms Reported Physical Exam Physical Exam Vital Signs Vital Signs - First Documented 06/27/19 08:26 Temp 97.4 Pulse 131 Resp 28 B/P (MAP) 129/65 (86) Pulse Ox 100 O2 Delivery Room Air Capillary Refill : Less Than 3 Seconds Height, Weight, BMI Height: 5'5.00" Weight: 139lbs. 0oz. 63.622964gs; 33.30 BMI Method:Stated General Appearance: No Apparent Distress, Thin, Other (resting comfortably on arrival) HEENT: PERRL/EOMI; No Moist Mucous Membranes Neck: Full Range of Motion, Supple Respiratory: Lungs Clear, Normal Breath Sounds, No Respiratory Distress; No Crackles, No Wheezing Cardiovascular: No Edema, No Murmur, Tachycardia Gastrointestinal: Normal Bowel Sounds, Soft, Tenderness Back: Normal Inspection, Vertebral Tenderness Extremity: Normal Inspection, Non Tender, No Pedal Edema Neurologic/Psychiatric: Alert, No Motor/Sensory Deficits; No Disoriented Skin: Normal Color, Warm/Dry Lymphatic: No Adenopathy Results Results/Procedures Labs Laboratory Tests 06/27/19 08:19 06/27/19 09:45 06/27/19 11:00 06/27/19 12:20 06/27/19 15:10 Patient resulted labs reviewed. Imaging: Reviewed Imaging Report Assessment/Plan Admission Diagnosis Diabetic ketoacidosis Admission Status: Inpatient Order (span 2 midnights) Reason for Inpatient Admission: Lactic acidosis Acute kidney injury superimposed on chronic kidney disease Leukocytosis Assessment and Plan Type 1 diabetes mellitus with ketoacidosis -Blood sugar >900 on arrival -Severely elevated anion gap acidosis, bicarb <5 -Beta hydroxybutyrate significantly elevated >12 -ABG with pH 7.1 -IV fluid bolus 2 L in ER -Continue IV fluids per DKA protocol -Started on insulin gtt -Monitor BMP closely SIRS Leukocytosis -SIRS+ with leukocytosis and tachycardia -Infectious workup negative thus far, but with significant leukocytosis will start broad spectrum antibiotics with Vanc/Cefepime/Flagyl -Plan to pare antibiotics as able once cultures return -Blood cultures drawn Lactic acidosis -Lactic acid 5 on arrival, repeat down to 2 Acute kidney injury superimposed on chronic kidney disease -Cr 2.96 on admission -Likely a mixture of prerenal and ATN due to dehydration -IV fluids ordered -Continue to monitor Critical Care Critically Ill Patient Diagnosis/Problems Diagnosis/Problems (1) DKA (diabetic ketoacidoses) Status: Acute Qualifiers: Diabetes mellitus type: type 1 Diabetes mellitus complication detail: without coma Qualified Codes: E10.10 - Type 1 diabetes mellitus with ketoa cidosis without coma (2) Acute kidney injury superimposed on chronic kidney disease Status: Acute (3) Lactic acidosis Status: Acute (4) SIRS (systemic inflammatory response syndrome) Status: Acute (5) Leukocytosis Status: Acute (6) High anion gap metabolic acidosis Status: Acute Clinical Quality Measures DVT/VTE Risk/Contraindication: Risk Factor Score Per Nursin RFS Level Per Nursing on Admit: 2=Moderate NOEMÍ RAPHAEL MD Jun 27, 2019 16:41
[2019-06-27] MEDS ORDERED: ACETAMINOPHEN 325 MG TABLET PO PRN (16:45)
[2019-06-27] MEDS ORDERED: VANCOMYCIN INJECTION 1,000 MG in NS (IVPB) 250 ML IV SCH (16:45)
--- NOTE | 2019-06-27 16:46 | NUR ---
Vanco - CrCl = 29ml/min, Give loading dose of 1250mg then 500mg every 24 hours.
[2019-06-27] MEDS ORDERED: VANCOMYCIN 1250 MG/NS 250 ML IVPB IV NR ×2 (16:48)
[2019-06-27] MEDS ORDERED: CEFEPIME INJECTION 1,000 MG in WATER (STERILE) FOR INJECTION 10 ML IV SCH (18:00)
[2019-06-27] MEDS: ATORVASTATIN 40 MG (LIPITOR) TABLET PO SCH (19:59)
[2019-06-27 20:32] LABS: CALCIUM 8.5 MG/DL (8.5-10.1); CREATININE SERUM 1.89 MG/DL (0.60-1.30); POTASSIUM 4.9 MMOL/L (3.6-5.0)
[2019-06-27] MEDS ORDERED: metroNIDAZOLE 500MG/100ML IVPB 100 ML IV SCH (22:00)
[2019-06-28] VITALS (17 sets, daily range): BP systolic 104–199; BP diastolic 63–109
[2019-06-28] MEDS: POTASSIUM CL 10MEQ/50ML IVPB 50 ML IV SCH ×5 (01:42→11:31)
[2019-06-28 04:12] LABS: BASOPHILS % (AUTO) 0 % (0-10); EOSINOPHILS % (AUTO) 0 % (0-10); HEMATOCRIT 37 % (35-52); HEMOGLOBIN 12.8 G/DL (11.5-16.0); LYMPHOCYTES # (AUTO) 2.2 X 10^3 (1.0-4.0); LYMPHOCYTES % (AUTO) 13 % (12-44); MEAN CORPUSCULAR HEMOGLOBIN 31 PG (25-34); MEAN CORPUSCULAR HGB CONC 35 G/DL (32-36); MEAN CORPUSCULAR VOLUME 90 FL (80-99); MEAN PLATELET VOLUME 10.1 FL (7.4-10.4); MONOCYTES # (AUTO) 0.6 X 10^3 (0.0-1.0); MONOCYTES % (AUTO) 4 % (0-12); NEUTROPHILS % (AUTO) 83 % (42-75); PLATELET COUNT 230 10^3/uL (130-400); RED CELL DISTRIBUTION WIDTH 13.3 % (10.0-14.5); WHITE BLOOD COUNT 16.9 10^3/uL (4.3-11.0)
[2019-06-28 04:35] LABS: BILIRUBIN,TOTAL 0.5 MG/DL (0.1-1.0); CALCIUM 8.5 MG/DL (8.5-10.1); CREATININE SERUM 1.49 MG/DL (0.60-1.30); MAGNESIUM 1.8 MG/DL (1.8-2.4); PHOSPHORUS 1.9 MG/DL (2.3-4.7); POTASSIUM 4.2 MMOL/L (3.6-5.0); TOTAL PROTEIN 6.1 GM/DL (6.4-8.2)
[2019-06-28] MEDS ORDERED: inSUlin REGULAR TPN/DRIP ONLY 250 UNITS in NORMAL SALINE 250 ML IV SCH (04:45)
[2019-06-28] MEDS: D5 1/2 NS 1000 ML IV SOLUTION 1,000 ML IV SCH ×2 (04:50→11:30)
[2019-06-28] MEDS: 1/2 NS IV SOLUTION 1,000 ML IV SCH ×2 (05:20→11:29)
[2019-06-28] MEDS ORDERED: MAGNESIUM 1 GM/100 ML IVPB 100 ML IV SCH (06:00)
[2019-06-28] MEDS ORDERED: KCL 20 MEQ TAB (K-DUR) PO SCH (06:00)
[2019-06-28] MEDS ORDERED: POTASSIUM CL 10MEQ/50ML IVPB 50 ML IV SCH (06:00)
[2019-06-28] MEDS: METOCLOPRAMIDE 10 MG (REGLAN) TAB PO SCH ×4 (06:02→22:10)
[2019-06-28 07:37] LABS: CALCIUM 8.3 MG/DL (8.5-10.1); CREATININE SERUM 1.4 MG/DL (0.60-1.30); MAGNESIUM 1.8 MG/DL (1.8-2.4); PHOSPHORUS 1.7 MG/DL (2.3-4.7); POTASSIUM 4.4 MMOL/L (3.6-5.0)
--- NOTE | 2019-06-28 07:45 | Progress Note ---
Progress Note Assessment/Plan Time Seen by Provider: 07:42 Events since last exam Patient does not want to see me. Dr. Winkler to take over patient Assessment/Plan Unable to assess Vitals Last set of Vitals Signs Vital Signs Date Time Temp Pulse Resp B/P (MAP) Pulse Ox O2 Delivery O2 Flow Rate FiO2 06/28/19 06:00 113 17 156/102 (120) 95 Room Air 06/28/19 04:00 98.0 I&O I&O Intake and Output 06/28/19 00:00 Intake Total 5357.5 ml Output Total 2200 ml Balance 3157.5 ml Intake Oral 820 ml IV Total 4537.5 ml Output Urine Total 2200 ml Daily Weight Change Yes, 24-33 lbs Labs Laboratory Tests 06/27/19 08:19: White Blood Count 26.1H, Red Blood Count 4.51, Hemoglobin 14.1, Hematocrit 44, Mean Corpuscular Volume 97, Mean Corpuscular Hemoglobin 31, Mean Corpuscular H emoglobin Concent 32, Red Cell Distribution Width 13.7, Platelet Count 349, Mean Platelet Volume 10.6H, Neutrophils (%) (Auto) 81H, Lymphocytes (%) (Auto) 11L, Monocytes (%) (Auto) 7, Eosinophils (%) (Auto) 0, Basophils (%) (Auto) 0, Neutrophils # (Auto) 21.2H, Lymphocytes # (Auto) 3.0, Monocytes # (Auto) 1.8H, Eosinophils # (Auto) 0.0, Basophils # (Auto) 0.0, Neutrophils % (Manual) 83, Lymphocytes % (Manual) 12, Monocytes % (Manual) 5, Eosinophils % (Manual) 0, Basophils % (Manual) 0, Band Neutrophils 0, Blood Morphology Comment NORMAL, Sodium Level 129L, Potassium Level 6.3H, Chloride Level 88L, Carbon Dioxide Level < 5*L, Anion Gap 37H, Blood Urea Nitrogen 51H, Creatinine 2.96H, Estimat Glomerular Filtration Rate 16, BUN/Creatinine Ratio 17, Glucose Level 919*H, Calcium Level 9.6, Corrected Calcium 10.1, Total Bilirubin 0.4, Aspartate Amino Transf (AST/SGOT) 32, Alanine Aminotransferase (ALT/SGPT) 74H, Alkaline Phosphatase 127, Total Protein 7.4, Albumin 3.4, Lipase 215H 06/27/19 09:33: Glucometer > 600*H 06/27/19 09:34: Blood Gas Puncture Site R BRACHIAL, Blood Gas Patient Temperature 97.6, Arterial Blood pH 7.07*L, Arterial Blood Partial Pressure CO2 11*L, Arterial Blood Partial Pressure O2 127H, Arterial Blood HCO3 3*L, Arterial Blood Total CO2 3.4L , Arterial Blood Oxygen Saturation 98, Arterial Blood Base Excess -25.7L, Long Test YES-POS, Blood Gas Ventilator Setting NO, Blood Gas Inspired Oxygen NA 06/27/19 09:45: Sodium Level 132L, Potassium Level 6.0H, Chloride Level 94L, Carbon Dioxide Level < 5*L, Anion Gap 33H, Blood Urea Nitrogen 52H, Creatinine 2.74H, Estimat Glomerular Filtration Rate 18, BUN/Creatinine Ratio 19, Glucose Level 852*H, Calcium Level 8.9, Lactic Acid Level 5.75*H, Troponin I < 0.028 06/27/19 11:00: White Blood Count 29.0H, Red Blood Count 4.23L, Hemoglobin 13.2, Hematocrit 40, Mean Corpuscular Volume 95, Mean Corpuscular Hemoglobin 31, Mean Corpuscular Hemoglobin Concent 33, Red Cell Distribution Width 13.3, Platelet Count 290, Mean Platelet Volume 10.6H, Sodium Level 134L, Potassium Level 5.1H, Chloride Level 100, Carbon Dioxide Level < 5*L, Anion Gap 29H, Blood Urea Nitrogen 51H, Creatinine 2.60H, Estimat Glomerular Filtration Rate 19, BUN/Creatinine Ratio 20, Glucose Level 691*H, Calcium Level 8.3L, Beta-Hydroxybutyrate (Chem panel) 12.57H 06/27/19 12:00: Lactic Acid Level 2.87*H 06/27/19 12:05: Glucometer > 600*H 06/27/19 12:20: Sodium Level 136, Potassium Level 4.5, Chloride Level 104, Carbon Dioxide Level < 5*L, Anion Gap 27H, Blood Urea Nitrogen 48H, Creatinine 2.42H, Estimat Glomerular Filtration Rate 21, BUN/Creatinine Ratio 20, Glucose Level 649*H, Calcium Level 8.4L 06/27/19 13:29: Glucometer 541*H 06/27/19 14:20: Urine Color YELLOW, Urine Clarity CLEAR, Urine pH 5, Urine Specific [place] 1.020, Urine Protein 3+H, Urine Glucose (UA) 4+H, Urine Ketones 4+H, Urine Nitrite NEGATIVE, Urine Bilirubin NEGATIVE, Urine Urobilinogen NORMAL, Urine Leukocyte Esterase NEGATIVE, Urine RBC (Auto) 2+H, Urine RBC 0-2, Urine WBC NONE, Urine Squamous Epithelial Cells 5-10, Urine Crystals NONE, Urine Bacteria TRACE, Urine Casts NONE, Urine Mucus NEGATIVE, Urine Culture Indicated NO, Urine Opiates Screen NEGATIVE, Urine Oxycodone Screen NEGATIVE, Urine Methadone Screen NEGATIVE, Urine Propoxyphene Screen NEGATIVE, Urine Barbiturates Screen NEGATIVE, Ur Tricyclic Antidepressants Screen NEGATIVE, Urine Phencyclidine Screen NEGATIVE, Urine Amphetamines Screen NEGATIVE, Urine Methamphetamines Screen NEGATIVE, Urine Benzodiazepines Screen NEGATIVE, Urine Cocaine Screen NEGATIVE, Urine Cannabinoids Screen NEGATIVE 06/27/19 14:32: Glucometer 464*H 06/27/19 15:10: Sodium Level 137, Potassium Level 4.7, Chloride Level 105, Carbon Dioxide Level 5*L, Anion Gap 27H, Blood Urea Nitrogen 47H, Creatinine 2.28H, Estimat Glom erular Filtration Rate 22, BUN/Creatinine Ratio 21, Glucose Level 507*H, Calcium Level 8.8 06/27/19 15:37: Glucometer 432*H 06/27/19 16:30: Glucometer 377H 06/27/19 17:35: Glucometer 382H 06/27/19 18:41: Glucometer 282H 06/27/19 19:37: Glucometer 210H 06/27/19 20:05: Sodium Level 136, Potassium Level 4.9, Chloride Level 107, Carbon Dioxide Level 14L, Anion Gap 15H, Blood Urea Nitrogen 43H, Creatinine 1.89H, Estimat Glomerular Filtration Rate 28, BUN/Creatinine Ratio 23, Glucose Level 263H, Hector cium Level 8.5 06/27/19 20:26: Glucometer 286H 06/27/19 21:31: Glucometer 238H 06/27/19 22:44: Glucometer 244H 06/27/19 23:28: Glucometer 208H 06/28/19 00:35: Glucometer 173H 06/28/19 01:38: Glucometer 160H 06/28/19 02:34: Glucometer 155H 06/28/19 03:31: Glucometer 119H 06/28/19 03:39: White Blood Count 16.9H, Red Blood Count 4.07L, Hemoglobin 12.8, Hematocrit 37, Mean Corpuscular Volume 90, Mean Corpuscular Hemoglobin 31, Mean Corpuscular Hemoglobin Concent 35, Red Cell Distribution Width 13.3, Platelet Count 230, Mean Platelet Volume 10.1, Neutrophils (%) (Auto) 83H, Lymphocytes (%) (Auto) 13, Monocytes (%) (Auto) 4, Eosinophils (%) (Auto) 0, Basophils (%) (Auto) 0, Neutrophils # (Auto) 14.0H, Lymphocytes # (Auto) 2.2, Monocytes # (Auto) 0.6, Eosinophils # (Auto) 0.0, Basophils # (Auto) 0.0, Sodium Level 136, Potassium Level 4.2, Chloride Level 109H, Carbon Dioxide Level 19L, Anion Gap 8, Blood Urea Nitrogen 35H, Creatinine 1.49H, Estimat Glomerular Filtration Rate 36, BUN/Creatinine Ratio 23, Glucose Level 112H, Calcium Level 8.5, Corrected Calcium 9.3, Phosphorus Level 1.9L, Magnesium Level 1.8, Total Bilirubin 0.5, Aspartate Amino Transf (AST/SGOT) 36H, Alanine Aminotransferase (ALT/SGPT) 51, Alkaline Phosphatase 84, Total Protein 6.1L, Albumin 3.0L, Beta-Hydroxybutyrate (Chem panel) 0.12 06/28/19 04:31: Glucometer 97 06/28/19 06:00: Glucometer 125H 06/28/19 06:59: Glucometer 129H 06/28/19 07:05: Sodium Level 137, Potassium Level 4.4, Chloride Level 109H, Carbon Dioxide Level 19L, Anion Gap 9, Blood Urea Nitrogen 31H, Creatinine 1.40H, Estimat Glomerular Filtration Rate 39, BUN/Creatinine Ratio 22, Glucose Level 159H, Calcium Level 8.3L, Phosphorus Level 1.7L, Magnesium Level 1.8, Beta-Hydroxybutyrate (Chem panel) 0.85H Focused Exam Lactate Level 06/27/19 09:45: Lactic Acid Level 5.75*H 06/27/19 12:00: Lactic Acid Level 2.87*H Clinical Quality Measures DVT/VTE Risk/Contraindication: Risk Factor Score Per Nursin RFS Level Per Nursing on Admit: 2=Moderate KARY ROWE DO Jun 28, 2019 07:45
[2019-06-28 07:48] LABS: INR 0.9 (0.8-1.4); PROTHROMBIN TIME PATIENT 12.1 SEC (12.2-14.7)
--- NOTE | 2019-06-28 08:31 | Pulmonary Consultation ---
History of Present Illness History of Present Illness Date of Consultation 06/28/19 08:25 Time Seen by Provider: 08:25 Date of Admission History of Present Illness 54yo with PMH of IDDM type 1, medical noncompliance, methamphetamine use presented to ED secondary to worsening weakness, and vomiting. Symptoms started 2 days prior. Denies CP, SOB, or productive cough. Denies current drug use. UDS is negative. I am consulted for ICU management. Allergies and Home Medications Allergies Coded Allergies: Sulfa (Sulfonamide Antibiotics) (Unverified Allergy, Unknown, 05/11/15) codeine (Verified Allergy, Unknown, TAKES ULTRAM AT HOME, 11/18/08) ketorolac (Verified Allergy, Unknown, 10/05/08) tramadol (Verified Allergy, Unknown, 11/02/11) Home Medications Albuterol 8.5 Gm Hfa.aer.ad, 2 PUFF IH TID PRN for SHORTNESS OF BREATH, (Reported) 1 PUFFS Atorvastatin Calcium 40 Mg Tablet, 40 MG PO HS, (Reported) Fluticasone Propionate 16 Gm Naspr, 2 SPRAYS NS DAILY, (Reported) Insulin Aspart (Niacinamide) 100 Unit/1 Ml Insuln.pen, 15 UNITS SQ AC, (Reported) Insulin Glargine,Hum.rec.anlog 300 Unit/1 Ml Insuln.pen, 50 UNITS SQ DAILY, (Reported) Magnesium Chloride 64 Mg Tab, 2 TAB PO Q48H, (Reported) Metoclopramide HCl 10 Mg Tablet, 10 MG PO QIDACHS, (Reported) Metoprolol Tartrate 50 Mg Tablet, 50 MG PO DAILY, (Reported) Montelukast Sodium 10 Mg Tablet, 10 MG PO DAILY, (Reported) Niacinamide 500 Mg Tablet, 500 MG PO Q48H, (Reported) Potassium Gluconate 99 Mg Tablet, 99 MG PO Q48H, (Reported) Past Diyoykv-Dxjszt-Ehpwvs Hx Past Med/Social Hx: Reviewed Nursing Past Med/Soc Hx Patient Social History Alcohol Use: Occasionally Uses Recreational Drug Use: Yes Drug of Choice: THC Smoking Status: Current Everyday Smoker Type Used: Cigarettes 2nd Hand Smoke Exposure: No Recent Foreign Travel: No Contact w/Someone Who Travel: No Recent Infectious Disease Expo: No Recent Hopitalizations: No Immunizations Up To Date Tetanus Booster (TDap): Unknown Date of Pneumonia Vaccine: Aug 17, 2012 Date of Influenza Vaccine: Aug 17, 2012 Seasonal Allergies Seasonal Allergies: No Past Medical History Surgeries: Yes (renal stents) Adenoidectomy, Ear Surgery, Hysterectomy, Tonsillectomy Respiratory: Yes Asthma, Pneumonia, Chronic Bronchitis Cardiac: Yes Deep Vein Thrombosis Neurological: Yes Neuropathy Reproductive Disorders: Yes Female Reproductive Disorders: Menstrual Problems Genitourinary: Yes Renal Failure Gastrointestinal: Yes (gastroparesis) Gastroesophageal Reflux, Pancreatitis, Ulcer Musculoskeletal: Yes Arthritis, Rheumatoid Arthritis, Fractures Endocrine: Yes Diabetes, Insulin dep HEENT: No Tonsilitis Loss of Vision: Denies Hearing Impairment: Denies Cancer: No Psychosocial: Yes Personality Disorder Integumentary: No Blood Disorders: No Adverse Reaction/Blood Tranf: No Family Medical History FH: thyroid cancer G8 SISTER FHx: macular degeneration 19 MOTHER Glaucoma G8 BROTHER Heart Disease, Cancer, Diabetes Review of Systems Time Seen by Provider: 08:28 Constitutional: Weakness, Malaise; No: Fever, Chills, Sweats, Other Eyes: No: Pain, Vision change, Conjunctivae inflammation, Eyelid inflammation, Other, Redness ENT: Nose congestion; No: Ear pain, Ear discharge, Nose pain, Nose discharge, Mouth pain, Mouth swelling, Throat pain, Throat swelling, Other Respiratory: Shortness of breath, SOB with excertion Gastrointestinal: Nausea, Abdominal Pain, Constipation; No: Vomiting, Diarrhea Genitourinary: No Dysuria; Frequency; No Incontinence, No Hematuria, No Retention, No Other Sepsis Event Evaluation Height, Weight, BMI Height: 5'5.00" Weight: 151lbs. 1.0oz. [id number]; 33.30 BMI Method:Stated Exam Exam Vital Signs Date Time Temp Pulse Resp B/P (MAP) Pulse Ox O2 Delivery O2 Flow Rate FiO2 06/28/19 07:00 106 06/28/19 06:00 113 17 156/102 (120) 95 Room Air 06/28/19 05:00 105 152/100 (117) 96 Room Air 06/28/19 04:00 98.0 06/28/19 04:00 100 16 134/92 (106) 94 Room Air 06/28/19 04:00 95 Room Air 06/28/19 03:00 98 20 132/85 (101) 93 Room Air 06/28/19 02:00 105 15 147/88 (107) 93 Room Air 06/28/19 01:00 107 06/28/19 01:00 107 15 150/81 (104) 94 Room Air 06/28/19 00:00 97.0 06/28/19 00:00 105 16 142/90 (107) 93 Room Air 06/28/19 00:00 95 Room Air 06/27/19 23:00 104 16 115/66 (82) 94 Room Air 06/27/19 22:00 114 13 115/73 (87) 92 Room Air 06/27/19 21:00 113 16 133/80 (97) 92 Room Air 06/27/19 20:00 107 17 137/82 (100) 92 Room Air 06/27/19 20:00 95 Room Air 06/27/19 19:00 98.3 121 13 135/77 (96) 95 Room Air 06/27/19 19:00 122 06/27/19 18:00 128 16 158/86 (110) 95 Room Air 06/27/19 17:00 129 21 173/97 (122) 96 Room Air 06/27/19 16:00 129 23 162/85 (110) 96 Room Air 06/27/19 16:00 100 Room Air 06/27/19 15:00 125 20 151/77 (101) 95 Room Air 06/27/19 14:00 129 26 148/76 (100) 94 Room Air 06/27/19 13:00 131 22 136/80 (98) 98 Room Air 06/27/19 12:41 130 06/27/19 12:00 131 21 133/75 (94) 100 Room Air 06/27/19 12:00 98 Room Air 06/27/19 11:00 130 20 143/75 (97) 100 Room Air 06/27/19 10:52 97.4 06/27/19 10:42 134 06/27/19 10:20 136 141/77 (98) 99 Room Air 06/27/19 10:20 136 141/77 (98) 99 Room Air 06/27/19 10:15 Room Air 06/27/19 10:03 133 22 149/75 (99) 100 06/27/19 08:26 97.4 131 28 129/65 (86) 100 Room Air I & O 06/28/19 07:00 Intake Total 6757.5 ml Output Total 3900 ml Balance 2857.5 ml Height & Weight Height: 5'5.00" Weight: 151lbs. 1.0oz. 68.808560cz; 33.30 BMI Method:Stated General Appearance: No Apparent Distress, Thin, Other (resting comfortably on arrival) HEENT: PERRL/EOMI; No Moist Mucous Membranes Neck: Full Range of Motion, Supple Respiratory: Lungs Clear, Normal Breath Sounds, No Respiratory Distress; No Crackles, No Wheezing Cardiovascular: No Edema, No Murmur, Tachycardia Capillary Refill: Less Than 3 Seconds Gastrointestinal: normal bowel sounds, non tender, soft Extremity: Normal Inspection, Non Tender, No Pedal Edema Neurologic/Psychiatric: Alert, No Motor/Sensory Deficits; No Disoriented Skin: Normal Color, Warm/Dry Lymphatic: No Adenopathy Results Lab Laboratory Tests 06/27/19 08:19 06/27/19 09:45 06/27/19 11:00 06/27/19 12:20 06/27/19 15:10 06/27/19 20:05 06/28/19 03:39 06/28/19 07:05 Assessment/Plan Assessment/Plan Acute DKA -Currently on DKA protocol -repeat labs, Leukocytosis - probably secondary to DKA -Currently on Zosyn, and Vanco -Will d/c Vancomycin -UA is negative Acute on chronic renal failure -Monitor -BLESSING VILLEGAS DO Jun 28, 2019 08:31
[2019-06-28] MEDS ORDERED: METO50TA15 PO (09:13)
[2019-06-28] MEDS ORDERED: RT-ALBUINH IH (09:13)
[2019-06-28] MEDS ORDERED: FLUT16SP22 NS (09:13)
--- NOTE | 2019-06-28 09:14 | NUR ---
MED REC WAS COMPLETED PRIOR TO MED REC TECH AVAILABILITY. I WENT OVER THE EXT MED HX AND VERIFIED HOW SHE TAKES EACH MEDICATION. SHE TAKES THE FOLLOWING OTC: POTASSIUM Q48H NIACIN Q48H SLOW MAG Q48H SHE ALSO STATES SHE USES A FLONASE NASAL SPRAY DAILY
[2019-06-28] MEDS: MONTELUKAST 10 MG (SINGULAIR) TAB PO SCH (09:33)
[2019-06-28] MEDS: meTOprolol TARTRATE 50 MG (LOPRESSOR) TAB PO SCH (09:33)
--- NOTE | 2019-06-28 09:44 | Progress Note - Hospitalist ---
Subjective HPI/CC On Admission Date Seen by Provider: Jun 28, 2019 Time Seen by Provider: 08:00 Erin Woods is a 54yoF with PMH IDDM (likely type 1) with a history of non- adherence, HLD, seasonal allergies, methamphetamine abuse, who presented to the ER with weakness and vomiting. She reports a two day history of feeling ill. She reports subjective fevers. She reports dyspnea. She denies cough. She denies chest pain. She denies dysuria. She reports vague abdominal pain. She also reports diffuse back pain. She is requesting narcotics to treat her pain. She reports taking her long acting insulin, but says she hasn't taken her short acting because she hasn't been eating. She denies methamphetamine use and other IV drug use. She reports using CBD oils and maybe some marijuana. Subjective/Events-last exam Patient fired Dr Aguilera so I assumed care of patient. Pt reports having back pain. This is chronic for which she normally state CBD oil only for it. 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 I attempted to clarify this and she simply responded by saying she had to refuse Tylenol. She otherwise has no complaints. Focused Exam Lactate Level 06/27/19 09:45: Lactic Acid Level 5.75*H 06/27/19 12:00: Lactic Acid Level 2.87*H Objective Exam Vital Signs Vital Signs Date Time Temp Pulse Resp B/P (MAP) Pulse Ox O2 Delivery O2 Flow Rate FiO2 06/28/19 14:00 93 17 129/86 (100) 91 Room Air 06/28/19 04:00 98.0 Capillary Refill : Less Than 3 Seconds General Appearance: No Apparent Distress, Chronically ill Respiratory: Lungs Clear, No Respiratory Distress Cardiovascular: Regular Rate, Rhythm, No Murmur Gastrointestinal: Normal Bowel Sounds, Soft Neurologic/Psychiatric: Alert, Oriented x3, Normal Mood/Affect Results/Procedures Lab Laboratory Tests 06/27/19 15:10 06/27/19 20:05 06/28/19 03:39 06/28/19 07:05 Patient resulted labs reviewed. Imaging: Reviewed Imaging Report Assessment/Plan Assessment and Plan Assess & Plan/Chief Complaint DKA- resolved IDDMI - transitioned to basal and prandial insulin - A1c pending transfer to the floor once off gtt SIRS Leukocytosis - no evidence of sepsis - Deescalate abx- currently on Cefepime only - Cultures pending Lactic acidosis -Trended down Acute kidney injury superimposed on chronic kidney disease -Back to baseline- 1.4 Critical Care Critically Ill Patient Clinical Quality Measures DVT/VTE Risk/Contraindication: Risk Factor Score Per Nursin RFS Level Per Nursing on Admit: 2=Moderate TRUDI SERRANO MD Jun 28, 2019 9:44 am
[2019-06-28] MEDS: inSUlin ASPART (NovoLOG) 1 UNIT/0.01 ML (CHARGE PER UNIT) SC SCH ×3 (11:00→22:11)
--- NOTE | 2019-06-28 11:15 | NUR ---
Pastoral care visit, pt asleep 2x as I tried to visit.
[2019-06-28] MEDS: FLUTICASONE NASAL SPRAY (FLONASE) 16 GM BTL NS SCH (11:29)
--- NOTE | 2019-06-28 14:40 | NUR ---
Arrived from ICU. report given by Lucía JARRETT. Oriented to room and surroundings. instructed to call before getting up
--- NOTE | 2019-06-28 16:24 | NUR ---
CM/SS spoke with patient in regards to SS consult. Patient states she is in need of a glucose monitor and supplies. 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 Patient does not have a PCP. She stated that she fired Dr. Aguilera this am, she refuses to see anyone at [facility], Dr. Felder would not accept her as a patient and she is going to apply for Dr. Wray.
[2019-06-28] MEDS ORDERED: VANCOMYCIN INJECTION 750 MG in NS (IVPB) 250 ML IV SCH (17:00)
[2019-06-28] MEDS ORDERED: VANCOMYCIN 500 MG/NS 100 ML IV SCH ×2 (17:00)
[2019-06-28] MEDS ORDERED: CEFEPIME 2,000 MG/SWFI 20 ML IV PUSH IV SCH ×2 (18:00)
[2019-06-28] MEDS: ATORVASTATIN 40 MG (LIPITOR) TABLET PO SCH (22:09)
[2019-06-29 00:50] VITALS: BP 120/74
--- NOTE | 2019-06-29 06:18 | NUR ---
pt accu ck this am is 42 denies s/s of hypoglycemia 240cc milk and 2 pkg geneva crackers given. as well as pt is ordering breakfast.. notified dr lboom
--- NOTE | 2019-06-29 06:19 | NUR ---
notified dr jasiel luna
[2019-06-29] MEDS: inSUlin ASPART (NovoLOG) 1 UNIT/0.01 ML (CHARGE PER UNIT) SC SCH ×3 (06:20→16:42)
[2019-06-29] MEDS: METOCLOPRAMIDE 10 MG (REGLAN) TAB PO SCH ×4 (06:25→20:30)
[2019-06-29 07:49] VITALS: BP 116/66
[2019-06-29] MEDS: meTOprolol TARTRATE 50 MG (LOPRESSOR) TAB PO SCH ×2 (08:24→11:03)
[2019-06-29] MEDS: MONTELUKAST 10 MG (SINGULAIR) TAB PO SCH (08:24)
[2019-06-29] MEDS: FLUTICASONE NASAL SPRAY (FLONASE) 16 GM BTL NS SCH ×2 (08:25→11:22)
--- NOTE | 2019-06-29 08:56 | Progress Note - Hospitalist ---
Subjective HPI/CC On Admission Date Seen by Provider: Jun 29, 2019 Time Seen by Provider: 08:50 Erin Woods is a 54yoF with PMH IDDM (likely type 1) with a history of non- adherence, HLD, seasonal allergies, methamphetamine abuse, who presented to the ER with weakness and vomiting. She reports a two day history of feeling ill. She reports subjective fevers. She reports dyspnea. She denies cough. She denies chest pain. She denies dysuria. She reports vague abdominal pain. She also reports diffuse back pain. She is requesting narcotics to treat her pain. She reports taking her long acting insulin, but says she hasn't taken her short acting because she hasn't been eating. She denies methamphetamine use and other IV drug use. She reports using CBD oils and maybe some marijuana. Subjective/Events-last exam Pt reports feeling better but still with muscles aches and abdominal pain. States some chest discomfort too. Thinks it's all due to retching from vomiting. Focused Exam Lactate Level 06/27/19 09:45: Lactic Acid Level 5.75*H 06/27/19 12:00: Lactic Acid Level 2.87*H Objective Exam Vital Signs Vital Signs Date Time Temp Pulse Resp B/P (MAP) Pulse Ox O2 Delivery O2 Flow Rate FiO2 06/29/19 07:49 98.5 98 20 116/66 (83) 99 Room Air Capillary Refill : Less Than 3 SecondsLess Than 3 Seconds General Appearance: No Apparent Distress, Chronically ill Respiratory: Lungs Clear, No Respiratory Distress Cardiovascular: Regular Rate, Rhythm, No Murmur Gastrointestinal: Normal Bowel Sounds, Soft Neurologic/Psychiatric: Alert, Oriented x3, Normal Mood/Affect Results/Procedures Lab Patient resulted labs reviewed. Imaging: Reviewed Imaging Report Assessment/Plan Assessment and Plan Assess & Plan/Chief Complaint DKA- resolved IDDMI - Had hypoglycemia this AM- will decreased Levemir dose - A1c 14.3 - Needs outpatient follow up with Endocrinology SIRS Leukocytosis - no evidence of sepsis - DC abx and monitor - Cultures NGTD Lactic acidosis- resolved Acute kidney injury superimposed on chronic kidney disease -Today's level pending Chronic Pain - Currently on oxycodone but takes CBD oil at home for managaement - Pt refused Tylenol or Ibuprofen Chest discomfort - Like MSK related - Will check troponin Diagnosis/Problems Diagnosis/Problems (1) Chronic pain (2) Acute kidney injury superimposed on chronic kidney disease Status: Acute (3) DKA (diabetic ketoacidoses) Status: Acute Qualifiers: Diabetes mellitus type: type 1 Diabetes mellitus complication detail: without coma Qualified Codes: E10.10 - Type 1 diabetes mellitus with ketoacidosis without coma (4) SIRS (systemic inflammatory response syndrome) Status: Acute (5) Leukocytosis Status: Acute Clinical Quality Measures DVT/VTE Risk/Contraindication: Risk Factor Score Per Nursin RFS Level Per Nursing on Admit: 2=Moderate TRUDI SERRANO MD Jun 29, 2019 8:56 am
[2019-06-29 09:05] LABS: BASOPHILS % (AUTO) 0 % (0-10); EOSINOPHILS % (AUTO) 0 % (0-10); HEMATOCRIT 37 % (35-52); HEMOGLOBIN 12.2 G/DL (11.5-16.0); LYMPHOCYTES # (AUTO) 1.7 X 10^3 (1.0-4.0); LYMPHOCYTES % (AUTO) 16 % (12-44); MEAN CORPUSCULAR HEMOGLOBIN 31 PG (25-34); MEAN CORPUSCULAR HGB CONC 33 G/DL (32-36); MEAN CORPUSCULAR VOLUME 93 FL (80-99); MONOCYTES # (AUTO) 0.5 X 10^3 (0.0-1.0); MONOCYTES % (AUTO) 5 % (0-12); NEUTROPHILS # (AUTO) 8.4 X 10^3 (1.8-7.8); NEUTROPHILS % (AUTO) 79 % (42-75); PLATELET COUNT 194 10^3/uL (130-400); RED CELL DISTRIBUTION WIDTH 14.9 % (10.0-14.5); WHITE BLOOD COUNT 10.7 10^3/uL (4.3-11.0)
[2019-06-29 09:21] LABS: BUN/CREATININE RATIO 22; CALCIUM 8.5 MG/DL (8.5-10.1); CARBON DIOXIDE 21 MMOL/L (21-32); CHLORIDE 112 MMOL/L (98-107); CREATININE SERUM 0.96 MG/DL (0.60-1.30); GFR ESTIMATED 60; GLUCOSE 93 MG/DL (70-105); POTASSIUM 3.5 MMOL/L (3.6-5.0); SODIUM 142 MMOL/L (135-145)
[2019-06-29 15:53] VITALS: BP 138/75
[2019-06-29] MEDS: ATORVASTATIN 40 MG (LIPITOR) TABLET PO SCH (20:30)
[2019-06-30] VITALS: BP 127/71
[2019-06-30] MEDS: inSUlin ASPART (NovoLOG) 1 UNIT/0.01 ML (CHARGE PER UNIT) SC SCH ×3 (00:28→11:45)
--- NOTE | 2019-06-30 05:08 | NUR ---
PAIN MED GIVEN.. PT UPSET STATED SHE ASKED FOR A PAIN PILL AT 0400.. PT DID NOT CALL FOR PAIN MEDS SINCE 2229 WHEN LAST MED WAS GIVEN. FAMILY HAS BEEN IN AND OUT OF ROOM/FLOOR ALL THROUGH THE NIGHT.
[2019-06-30] MEDS: METOCLOPRAMIDE 10 MG (REGLAN) TAB PO SCH ×2 (06:12→11:45)
[2019-06-30 07:35] VITALS: BP 114/66
[2019-06-30] MEDS: MONTELUKAST 10 MG (SINGULAIR) TAB PO SCH (08:03)
[2019-06-30] MEDS: meTOprolol TARTRATE 50 MG (LOPRESSOR) TAB PO SCH ×2 (08:03)
[2019-06-30] MEDS: FLUTICASONE NASAL SPRAY (FLONASE) 16 GM BTL NS SCH ×2 (08:03→08:04)
[2019-06-30 12:22] LABS: BUN/CREATININE RATIO 17; CALCIUM 7.8 MG/DL (8.5-10.1); CARBON DIOXIDE 24 MMOL/L (21-32); CHLORIDE 105 MMOL/L (98-107); CREATININE SERUM 0.92 MG/DL (0.60-1.30); GFR ESTIMATED > 60; GLUCOSE 187 MG/DL (70-105); POTASSIUM 3.7 MMOL/L (3.6-5.0); SODIUM 136 MMOL/L (135-145)
[2019-06-30] MEDS ORDERED: INSU100I40 SQ (12:47)
[2019-06-30] MEDS ORDERED: INSU300I SQ (12:47)
--- NOTE | 2019-06-30 12:51 | Discharge Inst-Simple/Standard ---
Discharge Inst-Standard Patient Instructions/Follow Up Plan of Care/Instructions/FU: Please continue to take your medications as written. I have decreased your insulin dose due to low blood sugars here in the hospital while on a decreased dose from yourhome dose even. Should your blood sugars consistently stay above 200 please contact your sewer repairer. Please follow-up with primary care provider to follow up this hospital stay Activity as Tolerated: Yes Discharge Diet: ADA Diet Return to The Hospital For: Blood sugars consistently over 300, confusion, fever, abdominal pain, vomiting, chest pain, shortness of breath, if you feel you are getting worse. TRUDI SERRANO MD Jun 30, 2019 12:51 pm
--- NOTE | 2019-06-30 13:05 | Discharge Summary ---
Diagnosis/Chief Complaint Date of Admission Jun 27, 2019 at 9:18 am Date of Discharge Discharge Date: Jun 30, 2019 Admission Diagnosis Diabetic ketoacidosis Discharge Diagnosis (1) DKA (diabetic ketoacidoses) Status: Acute (2) Acute kidney injury superimposed on chronic kidney disease Status: Acute (3) Chronic pain (4) SIRS (systemic inflammatory response syndrome) Status: Acute (5) Leukocytosis Status: Acute Discharge Summary Discharge Physical Exam Allergies: Coded Allergies: Sulfa (Sulfonamide Antibiotics) (Unverified Allergy, Unknown, 05/11/15) codeine (Verified Allergy, Unknown, TAKES ULTRAM AT HOME, 11/18/08) ketorolac (Verified Allergy, Unknown, 10/05/08) tramadol (Verified Allergy, Unknown, 11/02/11) Vitals & I&Os Vital Signs Date Time Temp Pulse Resp B/P (MAP) Pulse Ox O2 Delivery O2 Flow Rate FiO2 06/30/19 08:05 99 Room Air 06/30/19 07:35 98.9 96 18 114/66 (82) General Appearance: No Apparent Distress, Chronically ill Respiratory: Lungs Clear, No Respiratory Distress Cardiovascular: Regular Rate, Rhythm, No Murmur Neurologic/Psychiatric: Alert, Oriented x3 Hospital Course Pt was a 54yoCF with a PMH of IDDMI who presented to the ER with abdominal pain, nausea, vomiting and found to be in severe DKA. She was admitted to the ICU for insulin gtt and responded well. She was transitioned to prandial and basal insulin and did well. Her a1c was 14.3%. She did have some hypoglycemia with transition back to bolus insulin so her home dose was decreased with return precautions for persistently elevated blood sugars. She states she is going to follow up with Dr Wray once she is discharged. 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 Labs (last 24 hrs) Laboratory Tests 06/29/19 15:53: Glucometer 292H 06/29/19 20:15: Glucometer 152H 06/30/19 06:00: Glucometer 306H 06/30/19 11:29: Glucometer 184H 06/30/19 11:55: Sodium Level 136, Potassium Level 3.7, Chloride Level 105, Carbon Dioxide Level 24, Anion Gap 7, Blood Urea Nitrogen 16, Creatinine 0.92, Estimat Glomerular Filtration Rate > 60, BUN/Creatinine Ratio 17, Glucose Level 187H, Calcium Level 7.8L, Beta-Hydroxybutyrate (Chem panel) 0.12 Microbiology 06/27/19 Blood Culture - Preliminary, Resulted No growth 06/27/19 MRSA Screen - Final, Complete MRSA not isolated Patient resulted labs reviewed. Pending Labs Laboratory Tests 06/30/19 11:29: Glucometer 184 06/30/19 11:55: Sodium Level 136, Potassium Level 3.7, Chloride Level 105, Carbon Dioxide Level 24, Anion Gap 7, Blood Urea Nitrogen 16, Creatinine 0.92, Estimat Glomerular Filtration Rate > 60, BUN/Creatinine Ratio 17, Glucose Level 187, Calcium Level 7.8, Beta-Hydroxybutyrate (Chem panel) 0.12 Imaging: Reviewed Imaging Report Discussion & Recommendations Discharge Planning: >30 minutes discharge planning Discharge Home Medications: Active Scripts Active Noel Cisneros (Insulin Glargine,Hum.rec.anlog) 300 Unit/1 Ml Insuln.pen 5 Units SQ DAILY Fiasp 100 Unit/ml Flextouch (Insulin Aspart (Niacinamide)) 100 Unit/1 Ml Insuln.pen 5 Units SQ AC Reported Fluticasone Propionate 16 Gm [place].susp 2 Sprays NS DAILY Metoprolol Tartrate 50 Mg Tablet 50 Mg PO DAILY Proair Hfa (Albuterol Sulfate) 1 Puff Puff 2 Puff IH TID PRN Niacin (Niacinamide) 500 Mg Tablet 500 Mg PO Q48H Slow-Mag (Magnesium Chloride) 64 Mg Tab 2 Tab PO Q48H Potassium (Potassium Gluconate) 99 Mg Tablet 99 Mg PO Q48H Atorvastatin Calcium 40 Mg Tablet 40 Mg PO HS Metoclopramide HCl 10 Mg Tablet 10 Mg PO ACHS Montelukast Sodium 10 Mg Tablet 10 Mg PO DAILY Instructions to patient/family Please see electronic discharge instructions given to patient. Clinical Quality Measures DVT/VTE Risk/Contraindication: Risk Factor Score Per Nursin RFS Level Per Nursing on Admit: 2=Moderate Problem Qualifiers (1) DKA (diabetic ketoacidoses): Diabetes mellitus type: type 1 Diabetes mellitus complication detail: without coma Qualified Codes: E10.10 - Type 1 diabetes mellitus with ketoacidosis without coma TRUDI SERRANO MD Jun 30, 2019 1:05 pm
--- NOTE | 2019-06-30 13:25 | NUR ---
CM/SS, respond to consult and final discharge needs addressed. DME: Provided diabetic supplies through [facility]: glucometer, test strips, lancets, lancing device. Patient understands she can get test strips and lancet replacements at [facility] as needed. SUMMARY: Patient indicates she doesn't have a PCP but that her daughter has an application for review from Dr. Wray's office. Patient stated she has not had diabetic monitor/maintenance supplies for over 4 months. She has terminated service with physician(s) and/or limited choices, hopeful she will persistently pursue getting established with care because of chronic needs. Daughter to provide transport home.
== END 2019-06-30 14:35 | disposition home or self-care (01) | DRG 637 ==
LOC: EDUNIT# 08:13 → ER 08:14 → ICU 09:18 → 4TH 06-28 14:40
PROVIDERS: ADMIT Internal Medicine; ATTEND Family Medicine
DX: E10.10 Type 1 diabetes mellitus with ketoacidosis without coma (principal); N17.0 Acute kidney failure with tubular necrosis; E87.2 Acidosis; E86.0 Dehydration; N18.9 Chronic kidney disease, unspecified; E10.40 Type 1 diabetes mellitus with diabetic neuropathy, unspecified; E10.43 Type 1 diabetes mellitus with diabetic autonomic (poly)neuropathy; J44.9 Chronic obstructive pulmonary disease, unspecified; E78.5 Hyperlipidemia, unspecified; D72.829 Elevated white blood cell count, unspecified; F17.210 Nicotine dependence, cigarettes, uncomplicated; F60.9 Personality disorder, unspecified; J30.2 Other seasonal allergic rhinitis; R11.10 Vomiting, unspecified; K21.9 Gastro-esophageal reflux disease without esophagitis; M19.91 Primary osteoarthritis, unspecified site; M06.9 Rheumatoid arthritis, unspecified; M54.9 Dorsalgia, unspecified; G89.29 Other chronic pain; R07.89 Other chest pain; Z91.14 Patient's other noncompliance with medication regimen; Z79.4 Long term (current) use of insulin; Z95.828 Presence of other vascular implants and grafts; Z86.718 Personal history of other venous thrombosis and embolism; Z87.11 Personal history of peptic ulcer disease; Z87.19 Personal history of other diseases of the digestive system; Z88.2 Allergy status to sulfonamides; Z88.5 Allergy status to narcotic agent
CPT/HCPCS: 36415; 36600; 71045; 80048; 80053; 80306; 81000; 82010; 82805; 82962; 83036; 83605; 83690; 83735; 84100; 84484; 85007; 85025; 85027; 85610; 87040; 87081; 93005

== ENCOUNTER 2019-11-19 18:12 | Emergency (ER) | payer MEDICAID ==
[~2019-11-19] VITALS: Ht 165 cm; Wt 72.2 kg
[~2019-11-19 18:12] MED LIST changes: +ATOR40TA70 PO; +INSU100I40 SQ; +INSU300I SQ; +METO10TA3 PO; +METO50TA15 PO; +MONT10TA24 PO; +NF-MAG64T PO; +NIAC500T24 PO; +POTA99TA21 PO; +RT-ALBUINH IH
[2019-11-19] MEDS ORDERED: NS IV 1000 ML 1,000 ML IV SCH ×2 (18:45→19:15)
--- NOTE | 2019-11-19 18:47 | ED GI ---
General Chief Complaint: Abdominal/GI Problems Stated Complaint: KIDNEY PAIN Nursing Triage Note: COMPLAINS OF BILAT LOWER ABD PAIN THAT RADIATES INTO BACK. STATES SHE HAS GAINED 30# IN THE LAST FIVE DAYS. COMPLAINS OF HEAD AND NECK PAIN ET DENIES INJURY. Sepsis Screen: No Definite Risk Source of Information: Patient Exam Limitations: No Limitations History of Present Illness Date Seen by Provider: Nov 19, 2019 Time Seen by Provider: 18:44 Initial Comments To ER with reports of lower abdominal pain that radiates into her back, that began a few days ago and has since now affected bilateral lower extremities she complains of pain to both legs. She states that she's had an unintentional weight gain over the past few days, reports a history of kidney failure. She states that she's been generally weak and in bed for about 2 weeks. She has only had access to her fast acting insulin and has not had access to her Tujeo ins ulin. Unclear whether or not she has actually been taking it. Her conversation is rambling and hard to follow. Timing/Duration: Other Severity/Quality: Moderate Location: Generalized Abdomen Activities at Onset: Rest Modifying Factors: Worsens With Resting Associated Symptoms: Weakness Allergies and Home Medications Allergies Coded Allergies: Sulfa (Sulfonamide Antibiotics) (Unverified Allergy, Unknown, 05/11/15) codeine (Verified Allergy, Unknown, TAKES ULTRAM AT HOME, 11/18/08) ketorolac (Verified Allergy, Unknown, 10/05/08) tramadol (Verified Allergy, Unknown, 11/02/11) Home Medications Albuterol Sulfate 1 Puff Puff, 2 PUFF IH TID PRN for SHORTNESS OF BREATH, (Reported) Atorvastatin Calcium 40 Mg Tablet, 40 MG PO HS, (Reported) Fluticasone Propionate 16 Gm [place].susp, 2 SPRAYS NS DAILY, (Reported) Insulin Aspart (Niacinamide) 100 Unit/1 Ml Insuln.pen, 5 UNITS SQ AC Prescribed by: TRUDI SERRANO on 06/30/19 124 Insulin Glargine,Hum.rec.anlog 300 Unit/1 Ml Insuln.pen, 5 UNITS SQ DAILY Prescribed by: TRUDI SERRANO on 06/30/19 1247 Magnesium Chloride 64 Mg Tab, 2 TAB PO Q48H, (Reported) Metoclopramide HCl 10 Mg Tablet, 10 MG PO ACHS, (Reported) Metoprolol Tartrate 50 Mg Tablet, 50 MG PO DAILY, (Reported) Montelukast Sodium 10 Mg Tablet, 10 MG PO DAILY, (Reported) Niacinamide 500 Mg Tablet, 500 MG PO Q48H, (Reported) Potassium Gluconate 99 Mg Tablet, 99 MG PO Q48H, (Reported) Patient Home Medication List Home Medication List Reviewed: Yes Review of Systems Review of Systems Constitutional: see HPI EENTM: No Symptoms Reported Respiratory: No Symptoms Reported Cardiovascular: No Symptoms Reported Gastrointestinal: See HPI, Abdominal Pain Genitourinary: No Symptoms Reported Musculoskeletal: no symptoms reported Skin: no symptoms reported Psychiatric/Neurological: No Symptoms Reported Endocrine: No Symptoms Reported Hematologic/Lymphatic: No Symptoms Reported Past [id number]-[id number] Hx Patient Social History Alcohol Use: Occasionally Uses Recreational Drug Use: Yes (CBD OIL) Drug of Choice: THC Smoking Status: Current Everyday Smoker Type Used: Cigarettes 2nd Hand Smoke Exposure: No Recent Foreign Travel: No Contact w/Someone Who Travel: No Recent Infectious Disease Expo: No Recent Hopitalizations: No Immunizations Up To Date Tetanus Booster (TDap): Unknown Date of Pneumonia Vaccine: Aug 17, 2012 Date of Influenza Vaccine: Aug 17, 2012 Seasonal Allergies Seasonal Allergies: No Past Medical History Surgeries: Yes (renal stents) Adenoidectomy, Ear Surgery, Hysterectomy, Tonsillectomy Respiratory: Yes Asthma, Pneumonia, Chronic Bronchitis Cardiac: Yes Deep Vein Thrombosis Neurological: Yes Neuropathy Reproductive Disorders: Yes Female Reproductive Disorders: Menstrual Problems Genitourinary: Yes Renal Failure Gastrointestinal: Yes (gastroparesis) Gastroesophageal Reflux, Pancreatitis, Ulcer Musculoskeletal: Yes Arthritis, Rheumatoid Arthritis, Fractures Endocrine: Yes Diabetes, Insulin dep HEENT: No Tonsilitis Loss of Vision: Denies Hearing Impairment: Denies Cancer: No Psychosocial: Yes Personality Disorder Integumentary: No Blood Disorders: No Adverse Reaction/Blood Tranf: No Family Medical History FH: thyroid cancer G8 SISTER FHx: macular degeneration 19 MOTHER Glaucoma G8 BROTHER Heart Disease, Cancer, Diabetes Physical Exam Vital Signs Vital Signs - First Documented 11/19/19 18:20 Temp 36.8 Pulse 100 Resp 16 B/P (MAP) 160/63 (95) Pulse Ox 99 O2 Delivery Room Air Capillary Refill : Less Than 3 Seconds Height/Weight/BMI Height: 5'5.00" Weight: 151lbs. 1.0oz. 68.091347hh; 26.00 BMI Method:Stated General Appearance: WD/WN, no apparent distress HEENT: PERRL/EOMI, normal ENT inspection Respiratory: normal breath sounds, no respiratory distress, no accessory muscle use Cardiovascular: no murmur, tachycardia Gastrointestinal: normal bowel sounds, non tender, soft Extremities: normal range of motion, non-tender Neurologic/Psychiatric: alert, other (conversation is rambling and difficult to follow.) Skin: normal color, warm/dry Progress/Results/Core Measures Results/Orders Lab Results Laboratory Tests Test 11/19/19 18:40 11/19/19 18:45 Range/Units White Blood Count 9.2 4.3-11.0 10^3/uL Red Blood Count 4.17 L 4.35-5.85 10^6/uL Hemoglobin 12.7 11.5-16.0 G/DL Hematocrit 39 35-52 % Mean Corpuscular Volume 93 80-99 FL Mean Corpuscular Hemoglobin 30 25-34 PG Mean Corpuscular Hemoglobin Concent 33 32-36 G/DL Red Cell Distribution Width 13.3 10.0-14.5 % Platelet Count 359 130-400 10^3/uL Mean Platelet Volume 9.6 7.4-10.4 FL Neutrophils (%) (Auto) 69 42-75 % Lymphocytes (%) (Auto) 24 12-44 % Monocytes (%) (Auto) 7 0-12 % Eosinophils (%) (Auto) 0 0-10 % Basophils (%) (Auto) 0 0-10 % Neutrophils # (Auto) 6.4 1.8-7.8 X 10^3 Lymphocytes # (Auto) 2.2 1.0-4.0 X 10^3 Monocytes # (Auto) 0.6 0.0-1.0 X 10^3 Eosinophils # (Auto) 0.0 0.0-0.3 10^3/uL Basophils # (Auto) 0.0 0.0-0.1 10^3/uL Sodium Level 127 L 135-145 MMOL/L Potassium Level 3.7 3.6-5.0 MMOL/L Chloride Level 94 L 98-107 MMOL/L Carbon Dioxide Level 13 L 21-32 MMOL/L Anion Gap 20 H 5-14 MMOL/L Blood Urea Nitrogen 27 H 7-18 MG/DL Creatinine 1.68 H 0.60-1.30 MG/DL Estimat Glomerular Filtration Rate 32 BUN/Creatinine Ratio 16 Glucose Level 690 *H 70-105 MG/DL Calcium Level 8.8 8.5-10.1 MG/DL Corrected Calcium 9.9 8.5-10.1 MG/DL Total Bilirubin 0.5 0.1-1.0 MG/DL Aspartate Amino Transf (AST/SGOT) 80 H 5-34 U/L Alanine Aminotransferase (ALT/SGPT) 131 H 0-55 U/L Alkaline Phosphatase 160 H 40-136 U/L B-Type Natriuretic Peptide 244.9 H <100.0 PG/ML Total Protein 6.4 6.4-8.2 GM/DL Albumin 2.6 L 3.2-4.5 GM/DL Blood Gas Puncture Site LEFT RADIAL Blood Gas Patient Temperature 36.8 Arterial Blood pH 7.34 *L 7.37-7.43 Arterial Blood Partial Pressure CO2 26 L 35-45 MMHG Arterial Blood Partial Pressure O2 98 H 79-93 MMHG Arterial Blood HCO3 14 *L 23-27 MMOL/L Arterial Blood Total CO2 14.7 L 21.0-31.0 MMOL/L Arterial Blood Oxygen Saturation 97 94-100 % Arterial Blood Base Excess -10.7 L -2.5-2.5 MMOL/L Long Test POSITIVE Blood Gas Ventilator Setting NO Blood Gas Inspired Oxygen 21% FI02 My Orders Orders - LIZET MAS APRN Ua Culture If Indicated (11/19/19 18:24) Drug Screen Stat (Urine) (11/19/19 18:24) BNP (11/19/19 18:24) Thyroid Stimulating Hormone (11/19/19 18:24) Free T4 (Free Thyroxine) (11/19/19 18:24) Cbc With Automated Diff (11/19/19 18:24) Comprehensive Metabolic Panel (11/19/19 18:24) Ed Iv/Invasive Line Start (11/19/19 18:24) Ct Abdomen/Pelvis Wo (11/19/19 18:35) Ns Iv 1000 Ml (Sodium Chloride 0.9%) (11/19/19 18:45) Arterial Blood Gas (11/19/19 18:41) Ns Iv 1000 Ml (Sodium Chloride 0.9%) (11/19/19 19:15) Insulin Regular Tpn/Drip Only (Humulin R (11/19/19 19:15) Potassium Cl 10meq/50ml Ivpb (Kcl 10 Meq (11/19/19 19:15) Vital Signs/I&O 11/19/19 18:20 Temp 36.8 Pulse 100 Resp 16 B/P (MAP) 160/63 (95) Pulse Ox 99 O2 Delivery Room Air Blood Pressure Mean: 95 Departure Impression Primary Impression: DKA (diabetic ketoacidoses) Qualified Codes: E08.10 - Diabetes mellitus due to underlying condition with ketoacidosis without coma Disposition: ADMITTED INPATIENT Condition: Stable Admissions Decision to Admit Reason: Admit from ER (General) Decision to Admit/Date: Nov 19, 2019 Time/Decision to Admit Time: 19:26 Departure-Patient Inst. Referrals: NO,LOCAL PHYSICIAN (PCP/Family) Primary Care Physician LIZET MAS APRN Nov 19, 2019 18:47
[2019-11-19 18:51] LABS: BASOPHILS % (AUTO) 0 % (0-10); EOSINOPHILS % (AUTO) 0 % (0-10); HEMATOCRIT 39 % (35-52); HEMOGLOBIN 12.7 G/DL (11.5-16.0); LYMPHOCYTES # (AUTO) 2.2 X 10^3 (1.0-4.0); LYMPHOCYTES % (AUTO) 24 % (12-44); MEAN CORPUSCULAR HGB CONC 33 G/DL (32-36); MEAN CORPUSCULAR VOLUME 93 FL (80-99); MEAN PLATELET VOLUME 9.6 FL (7.4-10.4); MONOCYTES # (AUTO) 0.6 X 10^3 (0.0-1.0); MONOCYTES % (AUTO) 7 % (0-12); NEUTROPHILS # (AUTO) 6.4 X 10^3 (1.8-7.8); NEUTROPHILS % (AUTO) 69 % (42-75); PLATELET COUNT 359 10^3/uL (130-400); RED CELL DISTRIBUTION WIDTH 13.3 % (10.0-14.5); WHITE BLOOD COUNT 9.2 10^3/uL (4.3-11.0)
[2019-11-19 18:52] LABS: ABG BASE EXCESS -10.7 MMOL/L (-2.5-2.5); ABG OXYGEN SATURATION 97 % (94-100); ABG PCO2 26 MMHG (35-45); ABG PO2 98 MMHG (79-93); ABG TCO2 14.7 MMOL/L (21.0-31.0)
[2019-11-19 18:52] LABS: MEAN CORPUSCULAR HEMOGLOBIN 30 PG (25-34)
[2019-11-19 18:54] LABS: ABG PH 7.34 (7.37-7.43); ALLENS TEST POSITIVE; INSPIRED O2 21% FI02; PATIENT TEMP 36.8; VENTILATOR NO
[2019-11-19 19:08] LABS: ALBUMIN 2.6 GM/DL (3.2-4.5); BILIRUBIN,TOTAL 0.5 MG/DL (0.1-1.0); CALCIUM 8.8 MG/DL (8.5-10.1); CREATININE SERUM 1.68 MG/DL (0.60-1.30); POTASSIUM 3.7 MMOL/L (3.6-5.0); TOTAL PROTEIN 6.4 GM/DL (6.4-8.2)
[2019-11-19] MEDS ORDERED: inSUlin REGULAR TPN/DRIP ONLY 250 UNITS in NORMAL SALINE 250 ML IV SCH (19:15)
[2019-11-19] MEDS ORDERED: POTASSIUM CL 10MEQ/50ML IVPB 50 ML IV SCH (19:15)
--- NOTE | 2019-11-19 19:21 | Diagnostic Imaging Report ---
PROCEDURE: CT abdomen and pelvis without contrast. TECHNIQUE: Multiple contiguous axial images were obtained through the abdomen and pelvis without the use of intravenous contrast. Auto Exposure Controls were utilized during the CT exam to meet ALARA standards for radiation dose reduction. INDICATION: Abdominal pain which radiates into the back. Comparison is made study of 07/22/2017. FINDINGS: Unenhanced images of the liver and spleen reveal no focal abnormality. Gallbladder is surgically absent. No definite pancreatic lesion is seen on the noncontrasted study. No adrenal gland lesion is appreciated. There appears to be stents involving both main renal arteries. Inferior vena caval filter is in place. There is extensive aortoiliac atherosclerotic calcification. There is diffuse edema and/or inflammation within the lower mesentery and omentum with surgical suture in the expected location of the cecum. There does appear to be mild pelvic free fluid as well. An organized fluid collection is not seen to indicate significant hematoma or abscess. The bladder is distended without evidence of internal calcification. There is mild diffuse subcutaneous edema and/or inflammation. There are bulging discs seen at L1-L2 and L5-S1 levels. IMPRESSION: Edema and/or inflammation in the omentum and mesentery of the lower abdomen and pelvis which may be related to surgery at the level of the cecum. Clinical correlation is recommended. No drainable abscess is identified. No other acute abnormality is seen. Dictated by: Dictated on workstation # [id number]
[2019-11-19 19:27] LABS: FREE T4 (FREE THYROXINE) 0.84 NG/DL (0.70-1.48)
[2019-11-19 20:13] LABS: BILIRUBIN,URINE NEGATIVE (NEGATIVE); CLARITY,URINE CLEAR; COLOR,URINE YELLOW; GLUCOSE, URINE (UA) 2+ (NEGATIVE); KETONES,URINE 1+ (NEGATIVE); LEUKOCYTE ESTERASE ,URINE NEGATIVE (NEGATIVE); NITRITE,URINE NEGATIVE (NEGATIVE); PH,URINE 5.5 (5-9); PROTEIN,URINE 2+ (NEGATIVE)
[2019-11-19 20:31] LABS: AMPHETAMINE SCREEN, URINE POSITIVE (NEGATIVE); BARBITURATE SCREEN URINE NEGATIVE (NEGATIVE); BENZODIAZEPINES SCREEN URINE NEGATIVE (NEGATIVE); CANNABINOID SCREEN, URINE NEGATIVE (NEGATIVE); COCAINE SCREEN URINE NEGATIVE (NEGATIVE); METHADONE STAT NEGATIVE (NEGATIVE); METHAMPHETAMINE SCREEN URINE S POSITIVE (NEGATIVE); OPIATE SCREEN URINE NEGATIVE (NEGATIVE); OXYCODONE STAT NEGATIVE (NEGATIVE); TRICYCLIC ANTIDEPRESSANTS SCRE NEGATIVE (NEGATIVE)
[2019-11-19 20:32] VITALS: BP 150/78
[2019-11-19 20:32] LABS: PROPOXYPHENE STAT NEGATIVE (NEGATIVE)
[2019-11-19 20:38] LABS: BACTERIA,URINE FEW /HPF
[2019-11-19 20:39] LABS: AMORPHOUS SEDIMENT,UR FEW AMOR URATES /LPF
== END 2019-11-19 20:32 | disposition other institution (70) ==
LOC: EDUNIT# 18:12 → ER 18:13
DX: E11.10 Type 2 diabetes mellitus with ketoacidosis without coma (principal); J44.9 Chronic obstructive pulmonary disease, unspecified; E11.43 Type 2 diabetes mellitus with diabetic autonomic (poly)neuropathy; K31.84 Gastroparesis; K21.9 Gastro-esophageal reflux disease without esophagitis; M06.9 Rheumatoid arthritis, unspecified; F60.9 Personality disorder, unspecified; F17.210 Nicotine dependence, cigarettes, uncomplicated; Z86.718 Personal history of other venous thrombosis and embolism; Z87.01 Personal history of pneumonia (recurrent); Z90.89 Acquired absence of other organs; Z79.4 Long term (current) use of insulin; Z88.2 Allergy status to sulfonamides; Z88.5 Allergy status to narcotic agent; Z90.710 Acquired absence of both cervix and uterus; Z80.8 Family history of malignant neoplasm of other organs or systems
CPT/HCPCS: 36415; 74176; 80053; 80306; 81000; 82010; 82805; 83880; 84439; 84443; 85025; 87088; 96365

== ENCOUNTER 2019-12-27 02:00 | Inpatient (IN) | payer MEDICAID ==
[2019-12-27] VITALS (33 sets, daily range): BP systolic 67–169; BP diastolic 41–106
[~2019-12-27] VITALS: Ht 167 cm; Wt 80.2 kg
[2019-12-27] MEDS ORDERED: NS IV 1000 ML 1,000 ML IV SCH ×2 (02:07)
[2019-12-27] MEDS ORDERED: NS IV 500 ML 500 ML IV ONE (02:07)
[2019-12-27] MEDS ORDERED: ONDANSETRON 4 MG/2 ML (SDV) Z0FRAN IV PRN ×2 (02:15→05:45)
[2019-12-27] MEDS ORDERED: CEFEPIME INJECTION 1,000 MG in WATER (STERILE) FOR INJECTION 10 ML IV ONE (02:15)
--- NOTE | 2019-12-27 02:17 | ED General ---
General Stated Complaint: ALT MENTAL STATUS Source of Information: Patient, EMS, Family (mom) Exam Limitations: Other (altered mental status clinical condition) History of Present Illness Date Seen by Provider: Dec 27, 2019 Time Seen by Provider: 01:50 Initial Comments Patient resents to ER by EMS from home where she is found by her son around 5:00 in the afternoon and had been laying on the floor for they suspect about 4-5 hours. Patient was moaning and not answering questions appropriately. Release ago she was in the hospital for diabetic ketoacidosis. Her blood sugar read high for EMS. Patient was profoundly thirsty and requesting lots of fluids so family had been giving her water by mouth. No vomiting or diarrhea. Had a fever ye sterday according to family. Temperature of 93F per EMS on arrival. Allergies and Home Medications Allergies Coded Allergies: Sulfa (Sulfonamide Antibiotics) (Unverified Allergy, Unknown, 05/11/15) codeine (Verified Allergy, Unknown, TAKES ULTRAM AT HOME, 11/18/08) ketorolac (Verified Allergy, Unknown, 10/05/08) tramadol (Verified Allergy, Unknown, 11/02/11) Home Medications Albuterol Sulfate 1 Puff Puff, 2 PUFF IH TID PRN for SHORTNESS OF BREATH, (Reported) Atorvastatin Calcium 40 Mg Tablet, 40 MG PO HS, (Reported) Fluticasone Propionate 16 Gm Pansey.susp, 2 SPRAYS NS DAILY, (Reported) Insulin Aspart (Niacinamide) 100 Unit/1 Ml Insuln.pen, 5 UNITS SQ AC Prescribed by: TRUDI SERRANO on 06/30/19 1247 Insulin Glargine,Hum.rec.anlog 300 Unit/1 Ml Insuln.pen, 5 UNITS SQ DAILY Prescribed by: TRUDI SERRANO on 06/30/19 1247 Magnesium Chloride 64 Mg Tab, 2 TAB PO Q48H, (Reported) Metoclopramide HCl 10 Mg Tablet, 10 MG PO ACHS, (Reported) Metoprolol Tartrate 50 Mg Tablet, 50 MG PO DAILY, (Reported) Montelukast Sodium 10 Mg Tablet, 10 MG PO DAILY, (Reported) Niacinamide 500 Mg Tablet, 500 MG PO Q48H, (Reported) Potassium Gluconate 99 Mg Tablet, 99 MG PO Q48H, (Reported) Patient Home Medication List Home Medication List Reviewed: Yes Review of Systems Review of Systems Constitutional: see HPI (review of systems per mom); No chills, No diaphoresis; fever EENTM: No ear discharge, No ear pain Respiratory: No cough, No short of breath Cardiovascular: No chest pain, No edema Gastrointestinal: No abdominal pain, No nausea, No vomiting Genitourinary: No discharge, No dysuria Musculoskeletal: No back pain, No joint pain Skin: No pruritus, No rash Psychiatric/Neurological: Denies Headache, Denies Numbness All Other Systems Reviewed Negative Unless Noted: Yes Past Dlxdzbl-Ljmxrh-Fpkmqa Hx Patient Social History Recreational Drug Use: Yes Drug of Choice: THC Smoking Status: Current Everyday Smoker Type Used: Cigarettes 2nd Hand Smoke Exposure: No Recent Foreign Travel: No Contact w/Someone Who Travel: No Recent Hopitalizations: No Immunizations Up To Date Tetanus Booster (TDap): Unknown Date of Pneumonia Vaccine: Aug 17, 2012 Date of Influenza Vaccine: Aug 17, 2012 Seasonal Allergies Seasonal Allergies: No Past Medical History Surgeries: Yes (renal stents) Adenoidectomy, Ear Surgery, Hysterectomy, Tonsillectomy Respiratory: Yes Asthma, Pneumonia, Chronic Bronchitis Cardiac: Yes Deep Vein Thrombosis Neurological: Yes Neuropathy Reproductive Disorders: Yes Female Reproductive Disorders: Menstrual Problems Genitourinary: Yes Renal Failure Gastrointestinal: Yes (gastroparesis) Gastroesophageal Reflux, Pancreatitis, Ulcer Musculoskeletal: Yes Arthritis, Rheumatoid Arthritis, Fractures Endocrine: Yes Diabetes, Insulin dep HEENT: No Tonsilitis Loss of Vision: Denies Hearing Impairment: Denies Cancer: No Psychosocial: Yes Personality Disorder Integumentary: No Blood Disorders: No Adverse Reaction/Blood Tranf: No Family Medical History FH: thyroid cancer G8 SISTER FHx: macular degeneration 19 MOTHER Glaucoma G8 BROTHER Heart Disease, Cancer, Diabetes Physical Exam Vital Signs Vital Signs - First Documented 12/27/19 04:02 Pulse 130 Resp 16 B/P (MAP) 119/58 Pulse Ox 99 O2 Delivery Mechanical Ventilator O2 Flow Rate 30.00 Capillary Refill : Height, Weight, BMI Height: 5'5.00" Weight: 151lbs. 1.0oz. [id number]; 26.00 BMI Method:Stated General Appearance: Chronically ill, Moderate Distress Eyes: Bilateral Eye Normal Inspection, Bilateral Eye PERRL, Bilateral Eye EOMI HEENT: PERRL/EOMI, TMs Normal, Normal ENT Inspection; No Moist Mucous Membranes (exceedingly dry oral mucosa) Neck: Full Range of Motion, Normal Inspection Respiratory: Lungs Clear, Normal Breath Sounds, No Accessory Muscle Use, No Respiratory Distress Cardiovascular: Regular Rate, Rhythm, No Edema, Normal Peripheral Pulses Gastrointestinal: Normal Bowel Sounds, Non Tender, Soft Extremity: Normal Capillary Refill, Normal Inspection, Non Tender, No Pedal Edema Neurologic/Psychiatric: Alert, No Motor/Sensory Deficits, Other (GCS 10) Focused Exam Sepsis Stage: Ruled Out Reason for ruling out sepsis: DKA with amphetamines and methamphetamines. Lactate Level 12/27/19 02:19: Lactic Acid Level 6.69*H 12/27/19 04:23: Lactic Acid Level Laboratory Tests Test 12/27/19 02:19 12/27/19 04:23 Lactic Acid Level 6.69 MMOL/L (0.50-2.00) *H Procedures/Interventions Reason for Intubation: respiratory failure secondary to DKA Date of ETT Placement: Dec 27, 2019 Time of ETT Placement: 03:12 Intubation Method: orotracheal Tube Size: 8.0 Medications: Etomidate (20 mg), Rocuronium (50 mg) Positive End Tide CO2: Yes Breath Sounds after Intubation: bilateral-equal Intubation Complications: oral-unsuccessful attempt (1) Post Intubation Xray: Yes 1/2 cm above the cherie in good position Patient was sedated with 20 mg etomidate adequately and 100 mg of fentanyl. We then gave her 50 mg of rocuronium which achieved paralysis. First attempt using a Geo we were unable to achieve good view of the vocal cords because the patient's airway was so dry her epiglottis seem to be sticking. Would continued using the bag valve mask and her oxygen sats never fell below 100%. Second attempt we used the Zidisha video laryngoscope. We're able to obtain a excellent view of the entire vocal cords and witnessed the 8.0 ET tube pass the vocal cords. Capnography paper then changed color and the tube fogged on expiration. We heard good, symmetric breath sounds bilaterally and no air sounds over the epigastric region. Patient's oxygen sats still stayed at 100%. Progress/Results/Core Measures Suspected Sepsis SIRS Temperature: Pulse: Respiratory Rate: Laboratory Tests 12/27/19 02:19: White Blood Count 32.5*H Blood Pressure / Mean: 12/27/19 02:19: Lactic Acid Level 6.69*H 12/27/19 04:23: Laboratory Tests 12/27/19 02:19: Creatinine 3.05H, INR Comment 1.0, Platelet Count 326, Total Bilirubin 0.2 Results/Orders Lab Results Laboratory Tests Test 12/27/19 02:13 12/27/19 02:19 12/27/19 02:31 12/27/19 02:53 Range/Units Glucometer > 600 *H 70-110 MG/DL White Blood Count 32.5 *H 4.3-11.0 10^3/uL Red Blood Count 3.73 L 4.35-5.85 10^6/uL Hemoglobin 12.1 11.5-16.0 G/DL Hematocrit 37 35-52 % Mean Corpuscular Volume 100 H 80-99 FL Mean Corpuscular Hemoglobin 32 25-34 PG Mean Corpuscular Hemoglobin Concent 33 32-36 G/DL Red Cell Distribution Width 14.1 10.0-14.5 % Platelet Count 326 130-400 10^3/uL Mean Platelet Volume 10.2 7.4-10.4 FL Neutrophils (%) (Auto) 80 H 42-75 % Lymphocytes (%) (Auto) 15 12-44 % Monocytes (%) (Auto) 5 0-12 % Eosinophils (%) (Auto) 0 0-10 % Basophils (%) (Auto) 0 0-10 % Neutrophils # (Auto) 25.9 H 1.8-7.8 X 10^3 Lymphocytes # (Auto) 4.8 H 1.0-4.0 X 10^3 Monocytes # (Auto) 1.7 H 0.0-1.0 X 10^3 Eosinophils # (Auto) 0.0 0.0-0.3 10^3/uL Basophils # (Auto) 0.1 0.0-0.1 10^3/uL Neutrophils % (Manual) 72 % Lymphocytes % (Manual) 11 % Monocytes % (Manual) 5 % Metamyelocytes % 2 % Band Neutrophils 10 % Blood Morphology Comment NORMAL Prothrombin Time 14.0 12.2-14.7 SEC INR Comment 1.0 0.8-1.4 Activated Partial Thromboplast Time 27 24-35 SEC Sodium Level 123 *L 135-145 MMOL/L Potassium Level 6.1 H 3.6-5.0 MMOL/L Chloride Level 82 L 98-107 MMOL/L Carbon Dioxide Level < 5 *L 21-32 MMOL/L Anion Gap 36 H 5-14 MMOL/L Blood Urea Nitrogen 58 H 7-18 MG/DL Creatinine 3.05 H 0.60-1.30 MG/DL Estimat Glomerular Filtration Rate 16 BUN/Creatinine Ratio 19 Glucose Level 1040 *H 70-105 MG/DL Lactic Acid Level 6.69 *H 0.50-2.00 MMOL/L Calcium Level 9.6 8.5-10.1 MG/DL Corrected Calcium 10.6 H 8.5-10.1 MG/DL Total Bilirubin 0.2 0.1-1.0 MG/DL Aspartate Amino Transf (AST/SGOT) 23 5-34 U/L Alanine Aminotransferase (ALT/SGPT) 39 0-55 U/L Alkaline Phosphatase 130 40-136 U/L Total Creatine Kinase 118 29-168 U/L Troponin I < 0.028 <0.028 NG/ML Total Protein 6.4 6.4-8.2 GM/DL Albumin 2.8 L 3.2-4.5 GM/DL Serum Alcohol < 10 <10 MG/DL Urine Color YELLOW Urine Clarity SL CLOUDY Urine pH 5.0 5-9 Urine Specific [place] >=1.030 1.016-1.022 Urine Protein 3+ H NEGATIVE Urine Glucose (UA) 3+ H NEGATIVE Urine Ketones 2+ H NEGATIVE Urine Nitrite NEGATIVE NEGATIVE Urine Bilirubin NEGATIVE NEGATIVE Urine Urobilinogen 0.2 < = 1.0 MG/DL Urine Leukocyte Esterase NEGATIVE NEGATIVE Urine RBC (Auto) 1+ H NEGATIVE Urine RBC 0-2 /HPF Urine WBC 0-2 /HPF Urine Squamous Epithelial Cells 0-2 /HPF Urine Crystals PRESENT H /LPF Urine Amorphous Sediment MOD JOSH URATES H /LPF Urine Bacteria TRACE /HPF Urine Casts NONE /LPF Urine Mucus NEGATIVE /LPF Urine Culture Indicated YES Urine Opiates Screen NEGATIVE NEGATIVE Urine Oxycodone Screen NEGATIVE NEGATIVE Urine Methadone Screen NEGATIVE NEGATIVE Urine Propoxyphene Screen NEGATIVE NEGATIVE Urine Barbiturates Screen NEGATIVE NEGATIVE Ur Tricyclic Antidepressants Screen NEGATIVE NEGATIVE Urine Phencyclidine Screen NEGATIVE NEGATIVE Urine Amphetamines Screen POSITIVE H NEGATIVE Urine Methamphetamines Screen POSITIVE H NEGATIVE Urine Benzodiazepines Screen NEGATIVE NEGATIVE Urine Cocaine Screen NEGATIVE NEGATIVE Urine Cannabinoids Screen NEGATIVE NEGATIVE Blood Gas Puncture Site LEFT RADIAL Blood Gas Patient Temperature 34.4 Arterial Blood pH 7.05 *L 7.37-7.43 Arterial Blood Partial Pressure CO2 11 *L 35-45 MMHG Arterial Blood Partial Pressure O2 130 H 79-93 MMHG Arterial Blood HCO3 3 *L 23-27 MMOL/L Arterial Blood Total CO2 3.3 L 21.0-31.0 MMOL/L Arterial Blood Oxygen Saturation 98 94-100 % Arterial Blood Base Excess -26.3 L -2.5-2.5 MMOL/L Long Test POSITIVE Blood Gas Ventilator Setting NO Blood Gas Inspired Oxygen 2L O2 Test 12/27/19 04:20 12/27/19 04:23 Range/Units Glucometer > 600 *H 70-110 MG/DL Micro Results Microbiology 12/27/19 Influenza Types A,B Antigen (MARYANA) - Final, Complete My Orders Orders - AICHA HAYDEN Cbc With Automated Diff (12/27/19 02:07) Comprehensive Metabolic Panel (12/27/19 02:07) Blood Culture (12/27/19 02:07) Sputum Culture (12/27/19 02:07) Urinalysis (12/27/19 02:07) Urine Culture (12/27/19 02:07) Protime With Inr (12/27/19 02:07) Partial Thromboplastin Time (12/27/19 02:07) Chest 1 View, Ap/Pa Only (12/27/19 02:07) Ed Iv/Invasive Line Start (12/27/19 02:07) Ed Iv/Invasive Line Start (12/27/19 02:07) Ekg Tracing (12/27/19 02:07) Troponin I (12/27/19 02:07) Vital Signs Adult Sepsis Patie Q15M (12/27/19 02:07) Ondansetron Injection (Zofran Injectio (12/27/19 02:15) O2 (12/27/19 02:07) Remove Rings In Anticipation O (12/27/19 02:07) Lactic Acid Analyzer (12/27/19 02:07) Influenza A And B Antigens (12/27/19 02:07) Ns Iv 1000 Ml (Sodium Chloride 0.9%) (12/27/19 02:07) Cefepime Injection (Maxipime Injection) (12/27/19 02:15) Ed Iv/Invasive Line Start (12/27/19 02:07) Ns Iv 500 Ml (Sodium Chloride 0.9%) (12/27/19 02:07) Ns Iv 1000 Ml (Sodium Chloride 0.9%) (12/27/19 02:07) Creatine Kinase (12/27/19 02:07) Ct Head/Cervical Spine Wo (12/27/19 02:07) Catheter(Urinary) Insert & Ass 03,15 (12/27/19 02:29) Manual Differential (12/27/19 02:19) Lorazepam Injection (Ativan Injection) (12/27/19 02:45) Fentanyl Injection (Sublimaze Injection (12/27/19 02:45) Arterial Blood Gas (12/27/19 02:52) Drug Screen Stat (Urine) (12/27/19 03:02) Alcohol (12/27/19 03:02) Insulin (Regular) Human (Humulin R (Per (12/27/19 03:15) Propofol Drip (Icu) (Diprivan Drip (Icu) (12/27/19 03:19) Medications Given in ED Current Medications Medications Dose Ordered Sig/Nehemias Route Start Time Stop Time Status Last Admin Dose Admin Cefepime HCl 1000 mg/Sterile Water 10 ml @ 200 mls/hr ONCE ONCE IV 12/27/19 02:15 12/27/19 02:17 DC 12/27/19 02:49 200 MLS/HR Fentanyl Citrate 50 mcg ONCE ONCE IVP 12/27/19 02:45 12/27/19 02:46 DC 12/27/19 02:43 50 MCG Insulin Human Regular 10 unit ONCE ONCE IV 12/27/19 03:15 12/27/19 03:16 DC 12/27/19 04:32 10 UNIT Lorazepam 0.5 mg ONCE ONCE IVP 12/27/19 02:45 12/27/19 02:46 DC 12/27/19 02:36 0.5 MG Ondansetron HCl 4 mg PRN PRN IV 12/27/19 02:15 12/27/19 02:22 DC 12/27/19 02:22 4 MG Propofol 100 ml @ ud STK-MED ONCE IV 12/27/19 03:19 12/27/19 03:24 DC 12/27/19 04:02 16 MLS/HR Sodium Chloride 500 ml @ 0 mls/hr Q0M ONCE IV 12/27/19 02:07 12/27/19 02:12 DC 12/27/19 02:22 0 MLS/HR Vital Signs/I&O 12/27/19 04:02 Pulse 130 Resp 16 B/P (MAP) 119/58 Pulse Ox 99 O2 Delivery Mechanical Ventilator O2 Flow Rate 30.00 Capillary Refill : Progress Note : Time: 02:24 Progress Note The patient is encephalopathic likely from diabetic ketoacidosis. We'll start with 30 mL/kg or 2500 cc. Once we get her electrolytes we can initiate insulin. Plan to get a CT of her head and neck case she had a fall and to rule out bleeds. We'll check alcohol and drug screen as well. Family denies that she uses any recreational drugs or alcohol. Finally she is unable to answer so we'll obtain troponin and EKG. She is borderline needing intubation however if we can get some interventions and time she continued to vocalize and has good airway protection on her own. ABG ECG Initial ECG Impression Date: Dec 27, 2019 Initial ECG Impression Time: 02:51 Initial ECG Rate: 127 Initial ECG Rhythm: S.Tach Initial ECG Intervals: TN (244 ms) Initial ECG Impression: Normal, Nonspecific Changes Comment First-degree AV block with TN of [address] relevant [address] elevation or depression. Sinus tachycardia. Diagnostic Imaging Diagonstic Imaging: Xray Plain Films/CT/US/NM/MRI: chest Comments ET tube is 1-1/2 cm above the cherie with good position. Good parenchymal markings to the margins of the lung shadows. No evidence pneumothorax. No evidence of infiltrate or consolidation. No soft tissue acute findings. No acute osseous findings. Reviewed: Reviewed by Me Diagonstic Imaging: CT (without IV contrast) Plain Films/CT/US/NM/MRI: c-spine, head Comments CT head without intracranial hemorrhage, mass effect, tumor or midline shift. No calvarial fracture. CT C-spine without fracture, malalignment or subluxation. Reviewed: Reviewed Night [facility] Study, Reviewed by Me Departure Communication (Admissions) Time/Spoke to Admitting Phy: 04:05 Discussed the case lab imaging findings and intubation with Dr. Corbin and he agrees with ICU placement on DKA insulin drip protocol. Impression Primary Impression: Diabetic ketoacidosis Qualified Codes: E11.11 - Type 2 diabetes mellitus with ketoacidosis with coma Additional Impressions: Methamphetamine abuse Acute respiratory failure requiring reintubation Disposition: ADMITTED INPATIENT Condition: Stable Admissions Decision to Admit Reason: Admit from ER (General) Decision to Admit/Date: Dec 27, 2019 Time/Decision to Admit Time: 03:00 Departure-Patient Inst. Referrals: NO,LOCAL PHYSICIAN (PCP/Family) Primary Care Physician AICHA HAYDEN Dec 27, 2019 02:17
[2019-12-27 02:28] LABS: BASOPHILS # (AUTO) 0.1 10^3/uL (0.0-0.1); BASOPHILS % (AUTO) 0 % (0-10); EOSINOPHILS % (AUTO) 0 % (0-10); HEMATOCRIT 37 % (35-52); HEMOGLOBIN 12.1 G/DL (11.5-16.0); LYMPHOCYTES # (AUTO) 4.8 X 10^3 (1.0-4.0); LYMPHOCYTES % (AUTO) 15 % (12-44); MEAN CORPUSCULAR HEMOGLOBIN 32 PG (25-34); MEAN CORPUSCULAR HGB CONC 33 G/DL (32-36); MEAN CORPUSCULAR VOLUME 100 FL (80-99); MEAN PLATELET VOLUME 10.2 FL (7.4-10.4); MONOCYTES # (AUTO) 1.7 X 10^3 (0.0-1.0); MONOCYTES % (AUTO) 5 % (0-12); NEUTROPHILS # (AUTO) 25.9 X 10^3 (1.8-7.8); NEUTROPHILS % (AUTO) 80 % (42-75); PLATELET COUNT 326 10^3/uL (130-400); RED CELL DISTRIBUTION WIDTH 14.1 % (10.0-14.5)
[2019-12-27 02:31] LABS: WHITE BLOOD COUNT 32.5 10^3/uL (4.3-11.0)
[2019-12-27 02:37] LABS: BILIRUBIN,URINE NEGATIVE (NEGATIVE); CLARITY,URINE SL CLOUDY; COLOR,URINE YELLOW; GLUCOSE, URINE (UA) 3+ (NEGATIVE); KETONES,URINE 2+ (NEGATIVE); LEUKOCYTE ESTERASE ,URINE NEGATIVE (NEGATIVE); NITRITE,URINE NEGATIVE (NEGATIVE); PROTEIN,URINE 3+ (NEGATIVE)
[2019-12-27 02:42] LABS: BAND NEUTROPHILS 10 %; LYMPHOCYTES % (MANUAL) 11 %; METAMYELOCYTES % 2 %; MONOCYTES % (MANUAL) 5 %; NEUTROPHILS % (MANUAL) 72 %; RBC MORPH NORMAL
[2019-12-27] MEDS ORDERED: LORazepam INJ 2 MG/ML (ATIVAN) VIAL IVP ONE (02:45)
[2019-12-27] MEDS ORDERED: fentaNYL INJECTION 100 MCG/2 ML AMP IVP ONE (02:45)
[2019-12-27 02:46] LABS: BACTERIA,URINE TRACE /HPF; RBC,URINE 0-2 /HPF; WBC,URINE 0-2 /HPF
[2019-12-27 02:47] LABS: AMORPHOUS SEDIMENT,UR MOD AMOR URATES /LPF; SQUAMOUS EPITHELIAL CELL,UR 0-2 /HPF
[2019-12-27 02:51] LABS: ALANINE AMINOTRANSFERASE 39 U/L (0-55); ALBUMIN 2.8 GM/DL (3.2-4.5); ALKALINE PHOSPHATASE 130 U/L (40-136); BILIRUBIN,TOTAL 0.2 MG/DL (0.1-1.0); BUN/CREATININE RATIO 19; CALCIUM 9.6 MG/DL (8.5-10.1); CHLORIDE 82 MMOL/L (98-107); CREATINE KINASE 118 U/L (29-168); CREATININE SERUM 3.05 MG/DL (0.60-1.30); GFR ESTIMATED 16; POTASSIUM 6.1 MMOL/L (3.6-5.0); TOTAL PROTEIN 6.4 GM/DL (6.4-8.2)
[2019-12-27 03:00] LABS: CARBON DIOXIDE < 5 MMOL/L (21-32); GLUCOSE 1040 MG/DL (70-105); SODIUM 123 MMOL/L (135-145)
[2019-12-27 03:01] LABS: ABG BASE EXCESS -26.3 MMOL/L (-2.5-2.5); ABG OXYGEN SATURATION 98 % (94-100); ABG PO2 130 MMHG (79-93); ABG TCO2 3.3 MMOL/L (21.0-31.0)
[2019-12-27 03:04] LABS: ABG PH 7.05 (7.37-7.43)
[2019-12-27 03:05] LABS: ABG PCO2 11 MMHG (35-45)
[2019-12-27 03:06] LABS: ALLENS TEST POSITIVE; INSPIRED O2 2L O2; PATIENT TEMP 34.4; VENTILATOR NO
[2019-12-27] MEDS ORDERED: inSUlin (REGULAR) HUMAN 1 UNIT/0.01 ML (CHARGE PER UNIT) IV ONE ×2 (03:15→06:30)
[2019-12-27 03:18] LABS: AMPHETAMINE SCREEN, URINE POSITIVE (NEGATIVE); BARBITURATE SCREEN URINE NEGATIVE (NEGATIVE); BENZODIAZEPINES SCREEN URINE NEGATIVE (NEGATIVE); CANNABINOID SCREEN, URINE NEGATIVE (NEGATIVE); COCAINE SCREEN URINE NEGATIVE (NEGATIVE); METHAMPHETAMINE SCREEN URINE S POSITIVE (NEGATIVE); OPIATE SCREEN URINE NEGATIVE (NEGATIVE); TRICYCLIC ANTIDEPRESSANTS SCRE NEGATIVE (NEGATIVE)
[2019-12-27 03:19] LABS: METHADONE STAT NEGATIVE (NEGATIVE); OXYCODONE STAT NEGATIVE (NEGATIVE); PROPOXYPHENE STAT NEGATIVE (NEGATIVE)
[2019-12-27] MEDS ORDERED: PROPOFOL DRIP (ICU) 100 ML IV ONE (03:19)
--- NOTE | 2019-12-27 05:19 | NUR ---
0220 IV 20Ga LAC established per Elva Ibarra RN. Multiple attempts per EMS prior to arrival without success. Patients family member presented with EMS, assisted to the family room. 0235 [place] 18 fr./ UA collected 0240 lab at the bedside obtaining second set of cultures Patient GCS continues to decline, patient thrashing in the exam bed. 0237 0.5mg Ativan administered [address] Mendoza elects to intubate the patient. 0253 ABG obtained 0255 RT called 0307 20mg Etomidate administered 0309 50mg Rocuronium administered [address] Mendoza x 2, 8.0 ETT, 25 at the teeth 0317 16 Ga OG 0318 100mcg Fentanyl 0332 2.5mg Versed 0337 diprivan drip initiated 30mcg/kg/min, 16ml/hr [address]20 diprivan drip decreased to 22mcg/kg/min, 11.9 ml/hr Patient pain and sedation control continued. Vitals as documented. Patients family member returned to the bedside. 0445 Report called to Edil JARRETT. 0450 RT contacted to assist with transport to the floor 0515 Patient transported to the floor, diprivan infusing.
[2019-12-27] MEDS ORDERED: NS IV 1000 ML 1,000 ML ONE (05:24)
[2019-12-27] MEDS ORDERED: PROPOFOL DRIP (ICU) 100 ML IV SCH (05:30)
--- NOTE | 2019-12-27 05:41 | Diagnostic Imaging Report ---
PROCEDURE: CT head and CT cervical spine without contrast. TECHNIQUE: Multiple contiguous axial images were obtained through the brain and cervical spine without the use of intravenous contrast. Sagittal and coronal reformations through the cervical spine were then performed. Auto Exposure Controls were utilized during the CT exam to meet ALARA standards for radiation dose reduction. INDICATION: Altered mental status. Intubated. COMPARISON: CT head on 12/07/2008 FINDINGS: CT head: The ventricles and cortical sulci are age-appropriate. There is no midline shift or mass-effect. No acute intracranial hemorrhage is seen. There is no CT evidence of acute territorial ischemia. No focal masses or collections are present. The calvarium is intact. The visualized paranasal sinuses are clear. CT cervical spine: No acute fracture or dislocation is seen in the cervical spine. No focal osseous lesions. There is reversal of the normal lordotic curvature of the cervical spine centered at the C4 level. There is grade 1 anterolisthesis of C3 on C4. Vertebral body heights are well-maintained. The craniocervical junction is well-maintained. Moderate degenerative changes are seen in the cervical spine with disc osteophyte complexes and uncovertebral arthropathy. Soft tissues of the neck are unremarkable. Endotracheal tube and enteric tube are noted. IMPRESSION: 1. No hemorrhage or focal intra-axial mass. No CT evidence of large acute territorial ischemia. 2. No acute fracture or dislocation in the cervical spine. 3. Moderate degenerative changes in the cervical spine with grade 1 anterolisthesis of C3 on C4. Agree with overnight report. Dictated by: Dictated on workstation # [id number]
[2019-12-27] MEDS ORDERED: MIDAZOLAM 5 MG/5 ML (VERSED) VIAL ONE (05:44)
[2019-12-27] MEDS ORDERED: NS IV 1000 ML X 1 WIDE OPEN IV ONE (05:45)
[2019-12-27] MEDS ORDERED: LACTATED RINGERS 1,000 ML IV ONE ×5 (05:45→13:00)
[2019-12-27] MEDS ORDERED: 1/2 NS IV SOLUTION 1,000 ML IV SCH (05:45)
[2019-12-27] MEDS ORDERED: REGULAR inSUlin DRIP 250 UNITS/NS 250 ML IV SCH ×2 (05:45)
--- NOTE | 2019-12-27 05:45 | NUR ---
timeline note- central line placement 0550- 4 of versed administered per dr egan 0552- 5 ml propofol administered per dr egan 0600- central line placed by dr egan. stat chest xray ordered to confirm placement
[2019-12-27] MEDS ORDERED: NORMAL SALINE 250 ML ONE (05:50)
[2019-12-27] MEDS ORDERED: inSUlin (REGULAR) HUMAN 1 UNIT/0.01 ML (CHARGE PER UNIT) ONE ×2 (05:53→06:19)
[2019-12-27] MEDS: D5 1/2 NS IV 1,000 ML IV SCH ×3 (05:56→12:56)
[2019-12-27] MEDS: DEXTROSE 10% IV SOLUTION 1,000 ML IV SCH ×2 (05:56→15:26)
[2019-12-27] MEDS: POTASSIUM CL 10MEQ/50ML IVPB 50 ML IV SCH ×11 (05:57→20:55)
[2019-12-27] MEDS ORDERED: MIDAZOLAM 5 MG/5 ML (VERSED) VIAL IVP ONE (06:00)
--- NOTE | 2019-12-27 06:11 | Pulmonary Consultation ---
History of Present Illness History of Present Illness Date Seen by Provider: Dec 27, 2019 Time Seen by Provider: 06:06 Date of Admission History of Present Illness 54yo found unresponsive around 5:00. suspect pt was unresponsive for 4-5hours prior to being found. While in the ED pt was found to have acute DKA and UDS is positive for methamphetamines. Pt was intubated in ED secondary to acute respiratory failure. Upon ICU admission pt is hypotensive and sedated on vent. Pt has limited IV access. Unable to obtain info from pt. Family is not currently around. I am consulted for ICU management. Allergies and Home Medications Allergies Coded Allergies: Sulfa (Sulfonamide Antibiotics) (Unverified Allergy, Unknown, 05/11/15) codeine (Verified Allergy, Unknown, TAKES ULTRAM AT HOME, 11/18/08) ketorolac (Verified Allergy, Unknown, 10/05/08) tramadol (Verified Allergy, Unknown, 11/02/11) Home Medications Albuterol Sulfate 1 Puff Puff, 2 PUFF IH TID PRN for SHORTNESS OF BREATH, (Reported) Insulin Glargine,Hum.rec.anlog 100 Unit/1 Ml Insuln.pen, 20 UNITS SQ DAILY W/ BREAKFAST, (Reported) Insulin Lispro 100 Unit/1 Ml Insuln.pen, 5 UNITS SQ TIDWM, (Reported) Magnesium Chloride 64 Mg Tab, 2 TAB PO Q48H, (Reported) Montelukast Sodium 10 Mg Tablet, 5 MG PO DAILY, (Reported) TAKES OF A 10 MG TO EQUAL 5MG DAILY Niacinamide 500 Mg Tablet, 500 MG PO Q48H, (Reported) Potassium Gluconate 99 Mg Tablet, 99 MG PO Q48H, (Reported) Past Kfywlhz-Oecnfa-Ehhsrc Hx Patient Social History Alcohol Use: Regular Use Recreational Drug Use: Yes Drug of Choice: THC Smoking Status: Current Everyday Smoker Type Used: Cigarettes 2nd Hand Smoke Exposure: No Recent Foreign Travel: No Contact w/Someone Who Travel: No Recent Infectious Disease Expo: No Recent Hopitalizations: No Immunizations Up To Date Tetanus Booster (TDap): Unknown Date of Pneumonia Vaccine: Aug 17, 2012 Date of Influenza Vaccine: Aug 17, 2012 Seasonal Allergies Seasonal Allergies: No Past Medical History Surgeries: Yes (renal stents) Adenoidectomy, Ear Surgery, Hysterectomy, Tonsillectomy Respiratory: Yes Asthma, Pneumonia, Chronic Bronchitis Cardiac: Yes Deep Vein Thrombosis Neurological: Yes Neuropathy Reproductive Disorders: Yes Female Reproductive Disorders: Menstrual Problems Genitourinary: Yes Renal Failure Gastrointestinal: Yes (gastroparesis) Gastroesophageal Reflux, Pancreatitis, Ulcer Musculoskeletal: Yes Arthritis, Rheumatoid Arthritis, Fractures Endocrine: Yes Diabetes, Insulin dep HEENT: No Tonsilitis Loss of Vision: Denies Hearing Impairment: Denies Cancer: No Psychosocial: Yes Personality Disorder Integumentary: No Blood Disorders: No Adverse Reaction/Blood Tranf: No Family Medical History FH: thyroid cancer G8 SISTER FHx: macular degeneration 19 MOTHER Glaucoma G8 BROTHER Heart Disease, Cancer, Diabetes Review of Systems Time Seen by Provider: 06:11 Sepsis Event Evaluation Height, Weight, BMI Height: 5'5.00" Weight: 151lbs. 1.0oz. 68.802121ty; 32.00 BMI Method:Stated Exam Exam Vital Signs Date Time Temp Pulse Resp B/P (MAP) Pulse Ox O2 Delivery O2 Flow Rate FiO2 12/27/19 05:58 80/54 12/27/19 05:15 35.3 113 16 107/68 100 Mechanical Ventilator 12/27/19 04:50 100 Nasal Cannula 2.00 100 12/27/19 04:02 130 16 119/58 99 Mechanical Ventilator 30.00 12/27/19 03:18 34.4 113 30 135/67 (89) 100 Nasal Cannula 12/27/19 02:08 34.4 130 30 135/67 (89) 99 Room Air I & O 12/27/19 07:00 Intake Total 10 ml Balance 10 ml Height & Weight Height: 5'5.00" Weight: 151lbs. 1.0oz. 68.610552jf; 32.00 BMI Method:Stated General Appearance: Chronically ill, Moderate Distress HEENT: PERRL/EOMI, TMs Normal, Normal ENT Inspection; No Moist Mucous Membranes (exceedingly dry oral mucosa) Neck: Full Range of Motion, Normal Inspection Respiratory: Lungs Clear, Normal Breath Sounds, No Accessory Muscle Use, No Respiratory Distress Cardiovascular: Regular Rate, Rhythm, No Edema, Normal Peripheral Pulses Capillary Refill: Less Than 3 Seconds Extremity: Normal Capillary Refill, Normal Inspection, Non Tender, No Pedal Edema Neurologic/Psychiatric: Alert, No Motor/Sensory Deficits, Other (GCS 10) Skin: Normal Color, Warm/Dry Lymphatic: No Adenopathy Results Lab Laboratory Tests 12/27/19 02:19 Assessment/Plan Assessment/Plan Acute respiratory failure -Intubated in ED -Repeat ABG Severe DKA -DKA protocol -Repeat labs pending -Pt only received 10units in ED -Will give 15 units reg insulin now then start insulin gtt -Repeat Labs Hyperkalemia -DKA protocol Severe sepsis -Start Zosyn and Vanco Hypotension -Will place central line -Give a 30cc/kg bolus of LR then start IVF per DKA protocol -Start Levophed Sinus tach -Monitor Methamphetamine use -education Acute renal failure -IVF and monitor Metabolic acidosis -IVF -repeat LA Hyponatremia -Monitor -IVF NS Anemia -Monitor BLESSING SCHULTZ DO Dec 27, 2019 06:11
[2019-12-27 06:12] LABS: BASOPHILS # (AUTO) 0.1 10^3/uL (0.0-0.1); BASOPHILS % (AUTO) 0 % (0-10); EOSINOPHILS # (AUTO) 0.1 10^3/uL (0.0-0.3); EOSINOPHILS % (AUTO) 0 % (0-10); HEMATOCRIT 31 % (35-52); LYMPHOCYTES # (AUTO) 6.9 X 10^3 (1.0-4.0); LYMPHOCYTES % (AUTO) 18 % (12-44); MEAN CORPUSCULAR HEMOGLOBIN 32 PG (25-34); MEAN CORPUSCULAR HGB CONC 33 G/DL (32-36); MEAN CORPUSCULAR VOLUME 98 FL (80-99); MONOCYTES # (AUTO) 1.9 X 10^3 (0.0-1.0); MONOCYTES % (AUTO) 5 % (0-12); NEUTROPHILS # (AUTO) 28.5 X 10^3 (1.8-7.8); NEUTROPHILS % (AUTO) 76 % (42-75); PLATELET COUNT 293 10^3/uL (130-400)
[2019-12-27 06:15] LABS: WHITE BLOOD COUNT 37.4 10^3/uL (4.3-11.0)
[2019-12-27] MEDS ORDERED: PHARMACY TO DOSE IV SCH (06:15)
[2019-12-27] MEDS ORDERED: NOREPINEPHRINE 4 MG/250 ML 250 ML IV ONE (06:16)
[2019-12-27 06:25] LABS: BILIRUBIN,URINE NEGATIVE (NEGATIVE); CLARITY,URINE CLEAR; COLOR,URINE YELLOW; GLUCOSE, URINE (UA) 3+ (NEGATIVE); KETONES,URINE 2+ (NEGATIVE); LEUKOCYTE ESTERASE ,URINE NEGATIVE (NEGATIVE); NITRITE,URINE NEGATIVE (NEGATIVE); PROTEIN,URINE 2+ (NEGATIVE)
[2019-12-27] MEDS: NOREPINEPHRINE 4 MG/250 ML 250 ML IV SCH ×5 (06:27→21:05)
[2019-12-27] MEDS ORDERED: NOREPINEPHRINE 4 MG/250 ML 250 ML IV SCH (06:30)
[2019-12-27] MEDS ORDERED: LACTATED RINGERS 1,000 ML IV SCH (06:30)
[2019-12-27 06:32] LABS: ALANINE AMINOTRANSFERASE 32 U/L (0-55); ALBUMIN 2.2 GM/DL (3.2-4.5); ALKALINE PHOSPHATASE 105 U/L (40-136); BILIRUBIN,TOTAL 0.2 MG/DL (0.1-1.0); BUN/CREATININE RATIO 21; CALCIUM 7.6 MG/DL (8.5-10.1); CHLORIDE 96 MMOL/L (98-107); CREATININE SERUM 2.64 MG/DL (0.60-1.30); GFR ESTIMATED 19; MAGNESIUM 2.3 MG/DL (1.6-2.4); PHOSPHORUS 9.1 MG/DL (2.3-4.7); SODIUM 128 MMOL/L (135-145); TRIGLYCERIDES 927 MG/DL (<150)
[2019-12-27 06:35] LABS: CARBON DIOXIDE < 5 MMOL/L (21-32); GLUCOSE 787 MG/DL (70-105)
[2019-12-27] MEDS: LACTATED RINGERS 1,000 ML IV SCH ×5 (06:44→22:23)
[2019-12-27 06:47] LABS: BACTERIA,URINE TRACE /HPF; RBC,URINE 0-2 /HPF; WBC,URINE 0-2 /HPF
[2019-12-27 06:48] LABS: AMORPHOUS SEDIMENT,UR MOD AMOR URATES /LPF
[2019-12-27] MEDS ORDERED: DexMEDEtomidine 250 ML DRIP 250 ML IV ONE (06:57)
[2019-12-27] MEDS ORDERED: PIPERACILLIN/TAZO 4.5 GM/NS 100 ML IV NR ×2 (07:00)
--- NOTE | 2019-12-27 07:01 | Diagnostic Imaging Report ---
EXAMINATION: Chest 1 view HISTORY: Intubation. COMPARISON: 06/27/2019. FINDINGS: Enteric tube and endotracheal tube are visualized in appropriate configuration. The lung volumes are normal. No focal consolidation is seen. Mildly prominent perihilar interstitial markings are seen bilaterally. No large pleural effusion or pneumothorax is seen. The cardiomediastinal silhouette is normal in size and contour. There is calcified aortic atherosclerotic plaque. No acute osseous abnormality is seen. IMPRESSION: 1. Mildly prominent perihilar interstitial markings, which may represent edema or infection. 2. Appropriate configuration of the enteric tube and endotracheal tube. Dictated by: Dictated on workstation # [id number]
[2019-12-27] MEDS ORDERED: VANCOMYCIN 1,750 MG/NS 500 ML IVPB IV NR ×2 (07:02)
[2019-12-27] MEDS ORDERED: VANCOMYCIN INJECTION 1,250 MG in NS (IVPB) 250 ML IV NR (07:02)
[2019-12-27] MEDS: RT-ALBUTEROL/IPRATROPIUM 3 ML (DUONEB) VIAL INH PRN (07:06)
[2019-12-27 07:10] LABS: ABG BASE EXCESS -19.9 MMOL/L (-2.5-2.5); ABG OXYGEN SATURATION 97 % (94-100); ABG PCO2 22 MMHG (35-45); ABG PO2 95 MMHG (79-93)
[2019-12-27 07:12] LABS: ABG PH 7.16 (7.37-7.43)
--- NOTE | 2019-12-27 07:12 | Diagnostic Imaging Report ---
EXAMINATION: Chest 1 view INDICATION: Central line placement. COMPARISON: Chest radiograph performed earlier the same date. FINDINGS: There has been interval placement of a right internal jugular central line with the tip overlying the mid SVC. Stable configuration of the endotracheal tube and enteric tube. Lung volumes are normal. Stable mildly prominent perihilar interstitial markings. No focal consolidation. No large pleural effusion or pneumothorax. The cardiac silhouette is stable. No acute osseous abnormalities. IMPRESSION: 1. Interval placement of a right internal jugular central line with the tip overlying the mid SVC. No pneumothorax. The remainder of the chest is stable. Dictated by: Dictated on workstation # [id number]
[2019-12-27 07:13] LABS: ALLENS TEST POSITIVE; PATIENT TEMP 36.5; VENTILATOR YES
[2019-12-27 07:14] LABS: INSPIRED O2 30% O2
[2019-12-27] MEDS ORDERED: SODIUM BICARB 8.4% 50 MEQ/50 ML VIAL IV ONE (07:30)
--- NOTE | 2019-12-27 07:36 | NUR ---
admission assessment questions recalled from previous visits due to pt being intubated and sedated
[2019-12-27 07:43] LABS: BASOPHILS % (AUTO) 0 % (0-10); EOSINOPHILS # (AUTO) 0.1 10^3/uL (0.0-0.3); EOSINOPHILS % (AUTO) 0 % (0-10); HEMATOCRIT 29 % (35-52); HEMOGLOBIN 9.9 G/DL (11.5-16.0); LYMPHOCYTES # (AUTO) 6.2 X 10^3 (1.0-4.0); LYMPHOCYTES % (AUTO) 17 % (12-44); MEAN CORPUSCULAR HEMOGLOBIN 33 PG (25-34); MEAN CORPUSCULAR HGB CONC 34 G/DL (32-36); MEAN CORPUSCULAR VOLUME 96 FL (80-99); MEAN PLATELET VOLUME 9.8 FL (7.4-10.4); MONOCYTES # (AUTO) 1.7 X 10^3 (0.0-1.0); MONOCYTES % (AUTO) 5 % (0-12); NEUTROPHILS # (AUTO) 27.5 X 10^3 (1.8-7.8); NEUTROPHILS % (AUTO) 78 % (42-75); PLATELET COUNT 262 10^3/uL (130-400)
[2019-12-27 07:45] LABS: WHITE BLOOD COUNT 35.4 10^3/uL (4.3-11.0)
[2019-12-27] MEDS: PIPERACILLIN/TAZOBACTAM (BULK) 4.5 GM in NS (IVPB) 100 ML IV SCH ×2 (07:45→14:37)
--- NOTE | 2019-12-27 07:49 | NUR ---
VANCOMYCIN DOSING SCR 2.64; IBW 58KG; CRCL ~ 21; BOLUS VANC 20 MG/KG X 65 KG ~ 1250 MG THEN VANC 15 MG/KG ~ 1 GM Q24H CHECK TROUGH LEVEL 12/29 AT 0600 HOLD DOSE AND CONTACT PHARMACY IF LEVEL IS GREATER THAN 20
[2019-12-27] MEDS ORDERED: FLU QUADRIvalent (5+ YOA) 2019-2020 (AFLURIA) 0.5 ML IM ONE (08:00)
[2019-12-27] MEDS: DexMEDEtomidine 250 ML DRIP 250 ML IV SCH ×3 (08:07→23:12)
--- NOTE | 2019-12-27 08:30 | Anesthesia-Procedure Note ---
Procedures/Interventions Procedure Start/Stop/Diagnosis Date of Procedure: Dec 27, 2019 Start Time: 08:15 Stop Time: 08:30 Arterial Line Arterial Line Catheter: 20G Type: Radial Location: Left Procedure: prepped, draped in sterile fashion, good wave-form was obtained, patient tolerated procedure well, no immediate complications, post procedure area cleaned, post procedure dressing applied AYO SORIANO CRNA Dec 27, 2019 08:30
--- NOTE | 2019-12-27 08:35 | History & Physical-Hospitalist ---
History of Present Illness HPI/Chief Complaint Pt is a 54yoCF witha PMH of IDDMII, methamphetamine use, CKD who presented to the ER due to altered mental status. She is currently treated and sedated and unable to provide any review of systems. Her mother is at bedside but is limited use in history other than that she is a type I diabetic and had been very thirsty lately.. All history is obtained from review of records. Reportedly she was found by her son on the ground unresponsive and moaning. EMS was called and she was found to have a temperature of 93F. She was also found to have a blood sugar reading of high per their device. On arrival to the ER sophia sparks was found to be in severe DKA with blood sugars are greater than 1000 and a bicarbonate of less than 5. She was found to be 7.05. She was intubated in the ER and admitted to the ICU for DKA protocol. Source: patient Date Seen 12/27/19 Time Seen by a Provider: 08:00 Attending Physician Cherelle Corbin MD PCP No,Local Physician Referring Physician Date of Admission Dec 27, 2019 at 04:00 Home Medications & Allergies Home Medications Reviewed patient Home Medication Reconciliation performed by pharmacy medication reconciliations pool technician and/or nursing. Patients Allergies have been reviewed. Allergies Allergies Coded Allergies Sulfa (Sulfonamide Antibiotics) (Unverified Allergy, Unknown, 05/11/15) codeine (Verified Allergy, Unknown, TAKES ULTRAM AT HOME, 11/18/08) ketorolac (Verified Allergy, Unknown, 10/05/08) tramadol (Verified Allergy, Unknown, 11/02/11) Past [id number]-[id number]-[id number] Hx Past Med/Social Hx: Reviewed Nursing Past Med/Soc Hx Patient Social History Alcohol Use: Regular Use Recreational Drug Use: Yes Drug of Choice: THC Smoking Status: Current Everyday Smoker Type Used: Cigarettes 2nd Hand Smoke Exposure: No Recent Foreign Travel: No Contact w/other who traveled: No Recent Hopitalizations: No Recent Infectious Disease Expo: No Immunizations Up To Date Tetanus Booster (TDap): Unknown Date of Pneumonia Vaccine: Aug 17, 2012 Date of Influenza Vaccine: Aug 17, 2012 Seasonal Allergies Seasonal Allergies: No Past Medical History Surgeries: Adenoidectomy, Ear Surgery, Hysterectomy, Tonsillectomy Cardiac: Deep Vein Thrombosis Neurological: Neuropathy Reproductive: Yes Female Reproductive Disorders: Menstrual Problems Genitourinary: Renal Failure Gastrointestinal: Gastroesophageal Reflux, Pancreatitis, Ulcer Musculoskeletal: Arthritis, Rheumatoid Arthritis, Fractures Endocrine: Diabetes, Insulin dep HEENT: Tonsilitis Loss of Vision: Denies Hearing Impairment: Denies Psychosocial: Personality Disorder History of Blood Disorders: No Adverse Reaction to Blood High: No Family History FH: thyroid cancer G8 SISTER FHx: macular degeneration 19 MOTHER Glaucoma G8 BROTHER Heart Disease, Cancer, Diabetes Review of Systems ROS-Unable to Obtain: intuabted and sedated Constitutional: see HPI Physical Exam Physical Exam Vital Signs Vital Signs - First Documented 12/27/19 12/27/19 12/27/19 02:08 03:30 04:02 Temp 34.4 Pulse 130 Resp 30 B/P (MAP) 135/67 (89) Pulse Ox 99 O2 Delivery Room Air O2 Flow Rate 30.00 FiO2 30 Capillary Refill : Less Than 3 Seconds Height, Weight, BMI Height: 5'5.00" Weight: 151lbs. 1.0oz. [id number]; 32.00 BMI Method:Stated General Appearance: Moderate Distress, Other (intubated and sedated) HEENT: Other (ETT tube in place, PERRLA, dry mucus mebranes, OGT with dark contents) Neck: No Thyromegaly; Other (ETT in place) Respiratory: Lungs Clear, Other (on vent) Cardiovascular: Regular Rate, Rhythm, No Murmur Gastrointestinal: Normal Bowel Sounds, Non Tender, Soft Extremity: Swelling (LLE > RLE) Neurologic/Psychiatric: Other (sedated on vent) Skin: Normal Color, Warm/Dry Results Results/Procedures Labs Laboratory Tests 12/27/19 02:19 12/27/19 06:00 12/27/19 07:25 Patient resulted labs reviewed. Imaging: Reviewed Imaging Report Imaging Date of Exam:12/27/19 CT HEAD/CERVICAL SPINE WO PROCEDURE: CT head and CT cervical spine without contrast. TECHNIQUE: Multiple contiguous axial images were obtained through the brain and cervical spine without the use of intravenous contrast. Sagittal and coronal reformations through the cervical spine were then performed. Auto Exposure Controls were utilized during the CT exam to meet ALARA standards for radiation dose reduction. INDICATION: Altered mental status. Intubated. COMPARISON: CT head on 12/07/2008 FINDINGS: CT head: The ventricles and cortical sulci are age-appropriate. There is no midline shift or mass-effect. No acute intracranial hemorrhage is seen. There is no CT evidence of acute territorial ischemia. No focal masses or collections are present. The calvarium is intact. The visualized paranasal sinuses are clear. CT cervical spine: No acute fracture or dislocation is seen in the cervical spine. No focal osseous lesions. There is reversal of the normal lordotic curvature of the cervical spine centered at the C4 level. There is grade 1 anterolisthesis of C3 on C4. Vertebral body heights are well-maintained. The craniocervical junction is well-maintained. Moderate degenerative changes are seen in the cervical spine with disc osteophyte complexes and uncovertebral arthropathy. Soft tissues of the neck are unremarkable. Endotracheal tube and enteric tube are noted. IMPRESSION: 1. No hemorrhage or focal intra-axial mass. No CT evidence of large acute territorial ischemia. 2. No acute fracture or dislocation in the cervical spine. 3. Moderate degenerative changes in the cervical spine with grade 1 anterolisthesis of C3 on C4. Assessment/Plan Admission Diagnosis DKA Admission Status: Inpatient Order (span 2 midnights) Reason for Inpatient Admission: severe DKA, on vent, will take more than two midnights to stabilize for discharge Assessment and Plan DKA IDDMI Continue on insulin gtt s/p bicarb pushes x2 LR for fluids given hypotension- transition to protocol fluids when HDS Check a1c last a1c from June of 2019 was 14.3 Appears poor controlled as was just admitted at [facility] for DKA Q2 BMP Hypovolemic shock LULY on CKD no evidence of sepsis Lactic elevation and leukocytosis due to DKA Continue LR Received 30cc/kg bolus in ER Monitor UOP Acute Respiratory Failure On vent Management per Dr Winkler, appreciate recs LLE edema h/o of DVT USG ordered Normocytic anemia OGT with dark content PPI started Consult Surgery, appreciate recs Methamphetamine use Will discuss sedation when alert Critical Care Critically Ill Patient Diagnosis/Problems Diagnosis/Problems (1) Acute respiratory failure requiring reintubation Status: Acute (2) Methamphetamine abuse Status: Acute (3) Diabetic ketoacidosis Status: Acute Qualifiers: Diabetes mellitus type: type 2 Diabetes mellitus complication detail: with coma Qualified Codes: E11.11 - Type 2 diabetes mellitus with ketoacidosis with coma (4) Acute kidney injury superimposed on chronic kidney disease Status: Acute (5) High anion gap metabolic acidosis Status: Acute (6) Leukocytosis Status: Acute (7) Lactic acidosis Status: Acute (8) Dehydration Status: Acute (9) Hypotension Status: Acute (10) Altered mental status Status: Acute Clinical Quality Measures DVT/VTE Risk/Contraindication: Risk Factor Score Per Nursin RFS Level Per Nursing on Admit: 4+=Very High TRUDI SERRANO MD Dec 27, 2019 08:35
[2019-12-27] MEDS ORDERED: fentaNYL INJECTION 100 MCG/2 ML AMP INJ ONE (08:42)
[2019-12-27] MEDS ORDERED: ETOMIDATE IV SOLN 20 MG/10 ML VIAL IV ONE (08:42)
[2019-12-27] MEDS ORDERED: MIDAZOLAM 5 MG/5 ML (VERSED) VIAL IJ ONE (08:42)
[2019-12-27] MEDS ORDERED: ROCURONIUM 10 MG/ML 5 ML SYRINGE IV ONE (08:42)
[2019-12-27 08:50] LABS: ALBUMIN 2.1 GM/DL (3.2-4.5); BILIRUBIN,TOTAL 0.2 MG/DL (0.1-1.0); CALCIUM 7.9 MG/DL (8.5-10.1); CREATININE SERUM 2.59 MG/DL (0.60-1.30); POTASSIUM 4.3 MMOL/L (3.6-5.0); TOTAL PROTEIN 4.9 GM/DL (6.4-8.2)
[2019-12-27 08:58] LABS: ABG BASE EXCESS -11.7 MMOL/L (-2.5-2.5); ABG OXYGEN SATURATION 97 % (94-100); ABG PCO2 23 MMHG (35-45); ABG PH 7.36 (7.37-7.43); ABG PO2 114 MMHG (79-93); ABG TCO2 13.5 MMOL/L (21.0-31.0)
[2019-12-27] MEDS ORDERED: ENOXAPARIN 40 MG/0.4 ML (LOVENOX) SYR SC SCH (09:00)
[2019-12-27 09:01] LABS: ALLENS TEST YES-POS; INSPIRED O2 30%; PATIENT TEMP 36.7; VENTILATOR YES
--- NOTE | 2019-12-27 09:15 | Consultation - Surgery ---
[facility] 12/27/19 0915: History of Present Illness History of Present Illness Patient Consulted On(shyam/time) 12/27/19 09:08 Date Seen by Provider: Dec 27, 2019 Time Seen by Provider: 09:08 Reason for Visit: hemoccult gastric content History of Present Illness This is a 54 y/o female w PMH of DM type I, chronic bronchitis, peptic ulcer dz, GERD, Methamphetamine use, and CKD who presented to the ED w AMS and was admitted to ICU for DKA and severe sepsis. Pt has Acute respiratory failure and was intubated at the ED. She has tested positive for methamphetamines on UDS. Surgery was consulted to evaluate +hemoccult gastric content. Past abdominal surgical hx includes hysterectomy. History of present illness is limited 2/2 pt's clinical condition, All history is obtained from review of records. Allergies and Home Medications Allergies Coded Allergies: Sulfa (Sulfonamide Antibiotics) (Unverified Allergy, Unknown, 05/11/15) codeine (Verified Allergy, Unknown, TAKES ULTRAM AT HOME, 11/18/08) ketorolac (Verified Allergy, Unknown, 10/05/08) tramadol (Verified Allergy, Unknown, 11/02/11) Home Medications Albuterol Sulfate 1 Puff Puff, 2 PUFF IH TID PRN for SHORTNESS OF BREATH, (Reported) Insulin Glargine,Hum.rec.anlog 100 Unit/1 Ml Insuln.pen, 20 UNITS SQ DAILY W/ BREAKFAST, (Reported) Insulin Lispro 100 Unit/1 Ml Insuln.pen, 5 UNITS SQ TIDWM, (Reported) Magnesium Chloride 64 Mg Tab, 2 TAB PO Q48H, (Reported) Montelukast Sodium 10 Mg Tablet, 5 MG PO DAILY, (Reported) TAKES OF A 10 MG TO EQUAL 5MG DAILY Niacinamide 500 Mg Tablet, 500 MG PO Q48H, (Reported) Potassium Gluconate 99 Mg Tablet, 99 MG PO Q48H, (Reported) Past Ghztwdv-Ptpdld-Oeqtwq Hx Patient Social History Alcohol Use: Regular Use Recreational Drug Use: Yes Drug of Choice: THC Smoking Status: Current Everyday Smoker Type Used: Cigarettes 2nd Hand Smoke Exposure: No Recent Foreign Travel: No Contact w/Someone Who Travel: No Recent Infectious Disease Expo: No Recent Hopitalizations: No Immunizations Up To Date Tetanus Booster (TDap): Unknown Date of Pneumonia Vaccine: Aug 17, 2012 Date of Influenza Vaccine: Aug 17, 2012 Seasonal Allergies Seasonal Allergies: No Surgeries History of Surgeries: Yes (renal stents) Surgeries: Adenoidectomy, Ear Surgery, Hysterectomy, Tonsillectomy Respiratory History of Respiratory Disorde: Yes Respiratory Disorders: Asthma, Pneumonia, Chronic Bronchitis Cardiovascular History of Cardiac Disorders: Yes Cardiac Disorders: Deep Vein Thrombosis Neurological History of Neurological Disord: Yes Neurological Disorders: Neuropathy Reproductive System Hx Reproductive Disorders: Yes Female Reproductive Disorders: Menstrual Problems Genitourinary History of Genitourinary Disor: Yes Genitourinary Disorders: Renal Failure Gastrointestinal History of Gastrointestinal Di: Yes (gastroparesis) Gastrointestinal Disorders: Gastroesophageal Reflux, Pancreatitis, Ulcer Musculoskeletal History of Musculoskeletal Dis: Yes Musculoskeletal Disorders: Arthritis, Rheumatoid Arthritis, Fractures Endocrine History of Endocrine Disorders: Yes Endocrine Disorders: Diabetes, Insulin dep HEENT History of HEENT Disorders: No HEENT Disorders: Tonsilitis Loss of Vision: Denies Hearing Impairment: Denies Cancer History of Cancer: No Psychosocial History of Psychiatric Problem: Yes Behavioral Health Disorders: Personality Disorder Integumentary History of Skin or Integumenta: No Blood Transfusions History of Blood Disorders: No Adverse Reaction to a Blood Tr: No Family Medical History Significant Family History: Heart Disease, Cancer, Diabetes Family Medial History: FH: thyroid cancer G8 SISTER FHx: macular degeneration 19 MOTHER Glaucoma G8 BROTHER Review of Systems-General ROS-Unable to Obtain: 12/19 clincial condition Physical Exam-General Problems Physical Exam Vital Signs Vital Signs - First Documented 12/27/19 12/27/19 12/27/19 02:08 03:30 04:02 Temp 34.4 Pulse 130 Resp 30 B/P (MAP) 135/67 (89) Pulse Ox 99 O2 Delivery Room Air O2 Flow Rate 30.00 FiO2 30 Capillary Refill : Less Than 3 Seconds General Appearance: other (critically ill, Intubated, responds to pain) Respiratory: chest non-tender, respiratory distress Cardiovascular: tachycardia (sinus) Gastrointestinal: non tender, soft; No distended Extremities: normal inspection, no pedal edema Neurologic/Psychiatric: No alert (sedated with ET in place) Skin: pallor Lymphatic: no adenopathy Data Review Labs Laboratory Tests 12/27/19 02:13: Glucometer > 600*H 12/27/19 02:19: White Blood Count 32.5*H, Red Blood Count 3.73L, Hemoglobin 12.1, Hematocrit 37, Mean Corpuscular Volume 100H, Mean Corpuscular Hemoglobin 32, Mean Corpuscular Hemoglobin Concent 33, Red Cell Distribution Width 14.1, Platelet Count 326, Mean Platelet Volume 10.2, Neutrophils (%) (Auto) 80H, Lymphocytes (%) (Auto) 1 5, Monocytes (%) (Auto) 5, Eosinophils (%) (Auto) 0, Basophils (%) (Auto) 0, Neutrophils # (Auto) 25.9H, Lymphocytes # (Auto) 4.8H, Monocytes # (Auto) 1.7H, Eosinophils # (Auto) 0.0, Basophils # (Auto) 0.1, Neutrophils % (Manual) 72, Lymphocytes % (Manual) 11, Monocytes % (Manual) 5, Metamyelocytes % 2, Band Neutrophils 10, Blood Morphology Comment NORMAL, Prothrombin Time 14.0, INR Comment 1.0, Activated Partial Thromboplast Time 27, Sodium Level 123*L, Potassium Level 6.1H, Chloride Level 82L, Carbon Dioxide Level < 5*L, Anion Gap 36H, Blood Urea Nitrogen 58H, Creatinine 3.05H, Estimat Glomerular Filtration Rate 16, BUN/Creatinine Ratio 19, Glucose Level 1040*H, Lactic Acid Level 6.69*H , Calcium Level 9.6, Corrected Calcium 10.6H, Total Bilirubin 0.2, Aspartate Amino Transf (AST/SGOT) 23, Alanine Aminotransferase (ALT/SGPT) 39, Alkaline Phosphatase 130, Total Creatine Kinase 118, Troponin I < 0.028, Total Protein 6.4, Albumin 2.8L, Serum Alcohol < 10 12/27/19 02:31: Urine Color YELLOW, Urine Clarity SL CLOUDY, Urine pH 5.0, Urine Specific [place] >=1.030, Urine Protein 3+H, Urine Glucose (UA) 3+H, Urine Ketones 2+H, Urine Nitrite NEGATIVE, Urine Bilirubin NEGATIVE, Urine Urobilinogen 0.2, Urine Leukocyte Esterase NEGATIVE, Urine RBC (Auto) 1+H, Urine RBC 0-2, Urine WBC 0-2, Urine Squamous Epithelial Cells 0-2, Urine Crystals PRESENTH, Urine Amorphous Sediment MOD JOSH URATESH, Urine Bacteria TRACE, Urine Casts NONE, Urine Mucus NEGATIVE, Urine Culture Indicated YES, Urine Opiates Screen NEGATIVE, Urine Oxycodone Screen NEGATIVE, Urine Methadone Screen NEGATIVE, Urine Propoxyphene Screen NEGATIVE, Urine Barbiturates Screen NEGATIVE, Ur Tricyclic Antidepressants Screen NEGATIVE, Urine Phencyclidine Screen NEGATIVE, Urine Amphetamines Screen POSITIVEH, Urine Methamphetamines Screen POSITIVEH, Urine Benzodiazepines Screen NEGATIVE, Urine Cocaine Screen NEGATIVE, Urine Cannabinoids Screen NEGATIVE 12/27/19 02:53: Blood Gas Puncture Site LEFT RADIAL, Blood Gas Patient Temperature 34.4, Arterial Blood pH 7.05*L, Arterial Blood Partial Pressure CO2 11*L, Arterial Blood Partial Pressure O2 130H, Arterial Blood HCO3 3*L, Arterial Blood Total CO2 3.3L, Arterial Blood Oxygen Saturation 98, Arterial Blood Base Excess -26.3L , Long Test POSITIVE, Blood Gas Ventilator Setting NO, Blood Gas Inspired Oxygen 2L O2 12/27/19 04:20: Glucometer > 600*H 12/27/19 04:23: Lactic Acid Level 2.72*H 12/27/19 05:23: Glucometer > 600*H 12/27/19 06:00: White Blood Count 37.4*H, Red Blood Count 3.16L, Hemoglobin 10.0L, Hematocrit 31L, Mean Corpuscular Volume 98, Mean Corpuscular Hemoglobin 32, Mean Co rpuscular Hemoglobin Concent 33, Red Cell Distribution Width 14.0, Platelet Count 293, Mean Platelet Volume 10.0, Neutrophils (%) (Auto) 76H, Lymphocytes (%) (Auto) 18, Monocytes (%) (Auto) 5, Eosinophils (%) (Auto) 0, Basophils (%) (Auto) 0, Neutrophils # (Auto) 28.5H, Lymphocytes # (Auto) 6.9H, Monocytes # (Auto) 1.9H, Eosinophils # (Auto) 0.1, Basophils # (Auto) 0.1, Sodium Level 128L , Potassium Level 5.0, Chloride Level 96L, Carbon Dioxide Level < 5*L, Anion Gap 27H, Blood Urea Nitrogen 56H, Creatinine 2.64#H, Estimat Glomerular Filtration Rate 19, BUN/Creatinine Ratio 21, Glucose Level 787*H, Calcium Level 7.6L, Corrected Calcium 9.0, Phosphorus Level 9.1H, Magnesium Level 2.3, Total Bilirubin 0.2, Aspartate Amino Transf (AST/SGOT) 21, Alanine Aminotransferase (ALT/SGPT) 32, Alkaline Phosphatase 105, Total Protein 5.0L, Albumin 2.2L, Triglycerides Level 927H, Beta-Hydroxybutyrate (Chem panel) 12.29H 12/27/19 06:19: Urine Color YELLOW, Urine Clarity CLEAR, Urine pH 5.0, Urine Specific [place] >=1.030, Urine Protein 2+H, Urine Glucose (UA) 3+H, Urine Ketones 2+H, Urine Nitrite NEGATIVE, Urine Bilirubin NEGATIVE, Urine Urobilinogen 0.2, Urine Leukocyte Esterase NEGATIVE, Urine RBC (Auto) 1+H, Urine RBC 0-2, Urine WBC 0-2, Urine Squamous Epithelial Cells 2-5, Urine Crystals PRESENTH, Urine Amorphous Sediment MOD JOSH URATESH, Urine Bacteria TRACE, Urine Casts NONE, Urine Mucus NEGATIVE, Urine Culture Indicated NO 12/27/19 06:30: Glucometer > 600*H 12/27/19 07:00: Blood Gas Puncture Site L RADIAL, Blood Gas Patient Temperature 36.5, Arterial Blood pH 7.16*L, Arterial Blood Partial Pressure CO2 22L, Arterial Blood Partial Pressure O2 95H, Arterial Blood HCO3 7*L, Arterial Blood Total CO2 8.0L, Arterial Blood Oxygen Saturation 97, Arterial Blood Base Excess -19.9L, Long Test POSITIVE, Blood Gas Ventilator Setting YES, Blood Gas Inspired Oxygen 30% O2 12/27/19 07:25: White Blood Count 35.4*H, Red Blood Count 3.03L, Hemoglobin 9.9L, Hematocrit 29L , Mean Corpuscular Volume 96, Mean Corpuscular Hemoglobin 33, Mean Corpuscular Hemoglobin Concent 34, Red Cell Distribution Width 14.0, Platelet Count 262, Mean Platelet Volume 9.8, Neutrophils (%) (Auto) 78H, Lymphocytes (%) (Auto) 17, Monocytes (%) (Auto) 5, Eosinophils (%) (Auto) 0, Basophils (%) (Auto) 0, Neutrophils # (Auto) 27.5H, Lymphocytes # (Auto) 6.2H, Monocytes # (Auto) 1.7H, Eosinophils # (Auto) 0.1, Basophils # (Auto) 0.0, Sodium Level 128L, Potassium Level 4.3, Chloride Level 96L, Carbon Dioxide Level 7*L, Anion Gap 25H, Blood Urea Nitrogen 56H, Creatinine 2.59H, Estimat Glomerular Filtration Rate 19, BUN/Creatinine Ratio 22, Glucose Level 788*H, Lactic Acid Level 2.33*H, Calcium Level 7.9L, Corrected Calcium 9.4, Total Bilirubin 0.2, Aspartate Amino Transf (AST/SGOT) 23, Alanine Aminotransferase (ALT/SGPT) 31, Alkaline Phosphatase 95, Total Protein 4.9L, Albumin 2.1L 12/27/19 08:44: Blood Gas Puncture Site LR, Blood Gas Patient Temperature 36.7, Arterial Blood pH 7.36L, Arterial Blood Partial Pressure CO2 23L, Arterial Blood Partial Pressure O2 114H, Arterial Blood HCO3 13*L, Arterial Blood Total CO2 13.5L, Arterial Blood Oxygen Saturation 97, Arterial Blood Base Excess -11.7L, Long T est YES-POS, Blood Gas Ventilator Setting YES, Blood Gas Inspired Oxygen 30% Microbiology 12/27/19 Influenza Types A,B Antigen (MARYANA) - Final, Complete Assessment/Plan Assessment/Plan Assessment/Plan Severe DKA, metabolic acidosis, Managed by primary care team and Dr. Winkler Acute respiratory failure, intubated, Managed by Dr. Winkler Leukocytosis, On ABX, Managed by primary care team and Dr. Winkler Hypernatremia, likely dilutional 2/2 hyperglycemia Hypotension, central line in place, managed by Dr. Winkler Acute on chronic renal failure Anemia, +hemoccult gastric content, PPI, IV access, fluid resuscitation, type and cross, hx of GERD and PUD, endoscopic eval not recommended until more h emodynamically stable Clinical Quality Measures DVT/VTE Risk/Contraindication: Risk Factor Score Per Nursin RFS Level Per Nursing on Admit: 4+=Very High ENRIQUETA GUERRERO DO 12/27/191901: History of Present Illness History of Present Illness History of Present Illness Consult requested by Dr. Castellanos for Anemia, coffee ground og tube drainage. Patient is a 54 year old female type one diabetic. She is intubated and sedated at this time. She had an OG place that returned coffee ground appearing gastric content. Patient requiring levophed. Patient Hgb has had drop in hgb and was started on Protonix. Patient not able to provide any information. Allergies and Home Medications Allergies Coded Allergies: Sulfa (Sulfonamide Antibiotics) (Unverified Allergy, Unknown, 05/11/15) codeine (Verified Allergy, Unknown, TAKES ULTRAM AT HOME, 11/18/08) ketorolac (Verified Allergy, Unknown, 10/05/08) tramadol (Verified Allergy, Unknown, 11/02/11) Home Medications Albuterol Sulfate 1 Puff Puff, 2 PUFF IH TID PRN for SHORTNESS OF BREATH, (Reported) Insulin Glargine,Hum.rec.anlog 100 Unit/1 Ml Insuln.pen, 20 UNITS SQ DAILY W/ BREAKFAST, (Reported) Insulin Lispro 100 Unit/1 Ml Insuln.pen, 5 UNITS SQ TIDWM, (Reported) Magnesium Chloride 64 Mg Tab, 2 TAB PO Q48H, (Reported) Montelukast Sodium 10 Mg Tablet, 5 MG PO DAILY, (Reported) TAKES OF A 10 MG TO EQUAL 5MG DAILY Niacinamide 500 Mg Tablet, 500 MG PO Q48H, (Reported) Potassium Gluconate 99 Mg Tablet, 99 MG PO Q48H, (Reported) Patient Home Medication List Home Medication List Reviewed: Yes Past Cctfanc-Lbdqea-Dczmkv Hx Family Medical History Family Medial History: FH: thyroid cancer G8 SISTER FHx: macular degeneration 19 MOTHER Glaucoma G8 BROTHER Review of Systems-General ROS-Unable to Obtain: unable to provide secondary to being intubated. Physical Exam-General Problems Physical Exam General Appearance: other (critically ill, Intubated and sedated) HEENT: PERRL/EOMI, normal ENT inspection, TMs normal, pharynx normal Neck: normal inspection (intubated contents of og tube coffeground appearance) Respiratory: respiratory distress (intubated/sedated) Cardiovascular: tachycardia (sinus) Gastrointestinal: non tender, soft; No distended Rectal: deferred Neurologic/Psychiatric: No alert, No normal mood/affect, No oriented x 3 Skin: warm/dry, pallor Lymphatic: no adenopathy Assessment/Plan Assessment/Plan Assessment/Plan Severe DKA, metabolic acidosis, Acute respiratory failure, intubated Leukocytosis Hypernatremia, Hypotension, Acute on chronic renal failure Anemia,upper gi bleed with hx of ulcers, PPI, IV access, fluid resuscitation, follow hgb and transfuse prbc as needed, hx of GERD and PUD, no surgical intervention if continue to drop hgb would do egd, if stable continue conservative measures will follow Supervisory-Addendum Brief Verification & Attestation Participated in pt care: history, MDM, physical Personally performed: exam, history, MDM, supervision of care Care discussed with: Medical Student Procedures: n/a Results interpretation: Verified all documentation Verification and Attestation of Medical Student E/M Service A medical student performed and documented this service in my presence. I reviewed and verified all information documented by the medical student and made modifications to such information, when appropriate. I personally performed the physical exam and medical decision making. Enriqueta Guerrero, Dec 27, 2019,19:07 [facility] Dec 27, 2019 09:15 ENRIQUETA GUERRERO DO Dec 27, 2019 19:02
--- NOTE | 2019-12-27 09:29 | Occ Therapy Progress Note ---
Therapy Progress Note Pt intubated/ sedated. OT to hold therapy on this day and complete eval/ treat when pt medically stable and able to participate in skilled therapy session. KAYA ORANTES OTR Dec 27, 2019 09:29
--- NOTE | 2019-12-27 09:38 | Diagnostic Imaging Report ---
PROCEDURE: US left lower extremity venous. TECHNIQUE: Multiple real-time grayscale images were obtained over the left lower extremity in various projections. Additional duplex Doppler and color Doppler images were also obtained. INDICATION: Pain and swelling. FINDINGS: The left common femoral, superficial femoral, popliteal veins and tibial veins demonstrate normal response to compression, augmentation, and Valsalva. There are no abnormal left lower extremity fluid collections or masses. IMPRESSION: No evidence of deep venous thrombosis in the left lower extremity. Dictated by: Dictated on workstation # [id number]
[2019-12-27] MEDS: RT-ALBUTEROL/IPRATROPIUM 3 ML (DUONEB) VIAL INH SCH ×4 (09:42→21:39)
--- NOTE | 2019-12-27 09:58 | Physical Therapy Progress Note ---
Therapy Progress Note Patient currently sedated and on mechanical ventilator. PT to assess patient when medically stable and able to actively participate with skilled therapy. SHANIKA SHEA PT Dec 27, 2019 09:58
[2019-12-27] MEDS: PANTOPRAZOLE 40 MG (PROTONIX) VIAL IV SCH ×2 (10:30→21:08)
--- NOTE | 2019-12-27 10:50 | NUR ---
Pastoral care visit, pt is on vent, no family present.
[2019-12-27 11:20] LABS: ABG BASE EXCESS -7.2 MMOL/L (-2.5-2.5); ABG OXYGEN SATURATION 95 % (94-100); ABG PCO2 30 MMHG (35-45); ABG PH 7.38 (7.37-7.43); ABG PO2 79 MMHG (79-93); ABG TCO2 17.8 MMOL/L (21.0-31.0)
[2019-12-27 11:41] LABS: BILIRUBIN,TOTAL 0.2 MG/DL (0.1-1.0); CALCIUM 7.5 MG/DL (8.5-10.1); CREATININE SERUM 2.54 MG/DL (0.60-1.30); PHOSPHORUS 4.3 MG/DL (2.3-4.7); POTASSIUM 4.3 MMOL/L (3.6-5.0); TOTAL PROTEIN 4.7 GM/DL (6.4-8.2)
[2019-12-27 11:43] LABS: ALLENS TEST YES-POS; INSPIRED O2 21%; PATIENT TEMP 37.3; VENTILATOR YES
--- NOTE | 2019-12-27 12:25 | NUR ---
"Received dietary consult regarding pt's vent status. PMH: DVT; DM; GERD; pancreatitis; RA; CKD Est. kcal needs: 7040-2247 kcal/kg Est. Pro needs: 39-52 g Pro | 0.6-0.8 g Pro/kg (for renal pts) If pt is to remain NPO for more than 3d, would recommend initiation of the following TF: Suplena 1.8 at a goal rate of 40ml/hr. Begin at 10ml/hr and increase by 10ml 16h as tolerated. Monitor gastric residuals for tolerance. At goal rate, provides 1728 kcal (27 kcal/kg); 43 g Pro (0.7 g Pro/kg); and 708ml free water. Flush with 75ml H2O q4h for hydration status. With flushes, provides 1158ml free water. Will continue to follow and reassess as pt needs and status change. Jerzy Barbosa MS, RD, LD O:133 C: [phone]"
[2019-12-27 14:04] LABS: BILIRUBIN,TOTAL 0.3 MG/DL (0.1-1.0); CALCIUM 7.6 MG/DL (8.5-10.1); CREATININE SERUM 2.57 MG/DL (0.60-1.30); MAGNESIUM 1.9 MG/DL (1.6-2.4); POTASSIUM 4.8 MMOL/L (3.6-5.0); TOTAL PROTEIN 4.6 GM/DL (6.4-8.2)
[2019-12-27 14:52] LABS: HEMOGLOBIN 9.6 G/DL (11.5-16.0)
[2019-12-27] MEDS ORDERED: INSU100I23 SQ (15:51)
[2019-12-27] MEDS ORDERED: INSU100I10 SQ (15:51)
--- NOTE | 2019-12-27 15:53 | NUR ---
UNABLE TO SPEAK WITH THE PT, HOWEVER I DID GET A MED LIST FROM [facility] WHICH I WILL ATTACH TO THE PT'S CHART. USING THE MED LIST I COMPLETED THE MED REC AND WILL UPDATE IF/WHEN I CAN SPEAK WITH THE PT.
[2019-12-27] MEDS: D5 LR IV SOLUTION 1,000 ML IV SCH ×2 (16:44→19:36)
[2019-12-27 17:02] LABS: ALBUMIN 1.9 GM/DL (3.2-4.5); BILIRUBIN,TOTAL 0.3 MG/DL (0.1-1.0); CALCIUM 7.5 MG/DL (8.5-10.1); CREATININE SERUM 2.6 MG/DL (0.60-1.30); MAGNESIUM 1.7 MG/DL (1.6-2.4); PHOSPHORUS 3.4 MG/DL (2.3-4.7); POTASSIUM 4.4 MMOL/L (3.6-5.0); TOTAL PROTEIN 4.4 GM/DL (6.4-8.2)
[2019-12-27] MEDS ORDERED: inSUlin ASPART (NovoLOG) 1 UNIT/0.01 ML (CHARGE PER UNIT) SC SCH (21:00)
[2019-12-27 22:28] LABS: BILIRUBIN,TOTAL 0.2 MG/DL (0.1-1.0); CALCIUM 7.6 MG/DL (8.5-10.1); CREATININE SERUM 2.53 MG/DL (0.60-1.30); MAGNESIUM 1.8 MG/DL (1.6-2.4); PHOSPHORUS 2.8 MG/DL (2.3-4.7); POTASSIUM 4.4 MMOL/L (3.6-5.0); TOTAL PROTEIN 4.7 GM/DL (6.4-8.2)
[2019-12-28] VITALS (25 sets, daily range): BP systolic 85–169; BP diastolic 42–83
[2019-12-28] MEDS: NOREPINEPHRINE 4 MG/250 ML 250 ML IV SCH ×3 (00:28→10:41)
[2019-12-28] MEDS: inSUlin ASPART (NovoLOG) 1 UNIT/0.01 ML (CHARGE PER UNIT) SC SCH ×7 (00:28→23:19)
[2019-12-28] MEDS: RT-ALBUTEROL/IPRATROPIUM 3 ML (DUONEB) VIAL INH SCH ×6 (02:03→21:26)
[2019-12-28] MEDS: LACTATED RINGERS 1,000 ML IV SCH ×6 (02:29→22:15)
[2019-12-28 03:18] LABS: ABG OXYGEN SATURATION 96 % (94-100); ABG PCO2 34 MMHG (35-45); ABG PO2 87 MMHG (79-93); ALLENS TEST ART LINE; INSPIRED O2 21%; VENTILATOR NO
[2019-12-28 03:19] LABS: PATIENT TEMP 36.9
[2019-12-28 03:20] LABS: BASOPHILS % (AUTO) 0 % (0-10); EOSINOPHILS # (AUTO) 0.1 10^3/uL (0.0-0.3); EOSINOPHILS % (AUTO) 0 % (0-10); HEMATOCRIT 30 % (35-52); HEMOGLOBIN 10.4 G/DL (11.5-16.0); LYMPHOCYTES # (AUTO) 2.5 X 10^3 (1.0-4.0); LYMPHOCYTES % (AUTO) 19 % (12-44); MEAN CORPUSCULAR HEMOGLOBIN 32 PG (25-34); MEAN CORPUSCULAR HGB CONC 35 G/DL (32-36); MEAN CORPUSCULAR VOLUME 91 FL (80-99); MEAN PLATELET VOLUME 9.6 FL (7.4-10.4); MONOCYTES # (AUTO) 0.7 X 10^3 (0.0-1.0); MONOCYTES % (AUTO) 5 % (0-12); NEUTROPHILS # (AUTO) 10.1 X 10^3 (1.8-7.8); NEUTROPHILS % (AUTO) 76 % (42-75); PLATELET COUNT 216 10^3/uL (130-400); RED CELL DISTRIBUTION WIDTH 14.4 % (10.0-14.5); WHITE BLOOD COUNT 13.3 10^3/uL (4.3-11.0)
[2019-12-28 03:38] LABS: ALBUMIN 2.1 GM/DL (3.2-4.5); BILIRUBIN,TOTAL 0.2 MG/DL (0.1-1.0); CALCIUM 7.6 MG/DL (8.5-10.1); CREATININE SERUM 2.4 MG/DL (0.60-1.30); MAGNESIUM 1.8 MG/DL (1.6-2.4); PHOSPHORUS 2.7 MG/DL (2.3-4.7); POTASSIUM 4.4 MMOL/L (3.6-5.0); TOTAL PROTEIN 4.9 GM/DL (6.4-8.2)
[2019-12-28] MEDS: PIPERACILLIN/TAZOBACTAM (BULK) 4.5 GM in NS (IVPB) 100 ML IV SCH ×3 (05:10→19:57)
--- NOTE | 2019-12-28 05:28 | Pulmonary Progress Note ---
Subjective Time Seen by a Provider: 05:23 Subjective/Events-last exam Sedated on vent Sepsis Event Evaluation Height, Weight, BMI Height: 5'5.00" Weight: 151lbs. 1.0oz. 68.052332um; 32.00 BMI Method:Stated Focused Exam Lactate Level 12/27/19 04:23: Lactic Acid Level 2.72*H 12/27/19 07:25: Lactic Acid Level 2.33*H 12/27/19 11:03: Lactic Acid Level 1.78 Exam Exam Vital Signs Date Time Temp Pulse Resp B/P (MAP) Pulse Ox O2 Delivery O2 Flow Rate FiO2 12/28/19 04:00 95 Mechanical Ventilator 21 12/28/19 02:29 37.88567 92 16 125/52 97 Mechanical Ventilator 2.00 12/28/19 02:04 92 16 97 21 12/28/19 01:00 98 12/28/19 01:00 36.8 98 15 129/52 (77) 97 Mechanical Ventilator 21.00 12/28/19 00:00 37.0 105 16 152/55 (87) 97 Mechanical Ventilator 21.00 12/28/19 00:00 100 Mechanical Ventilator 21 12/27/19 23:00 37.1 103 16 152/53 (86) 97 Mechanical Ventilator 21.00 12/27/19 22:00 37.2 99 16 133/47 (75) 96 Mechanical Ventilator 21.00 12/27/19 21:39 98 15 100 21 12/27/19 21:00 37.3 102 16 169/53 (91) 100 Mechanical Ventilator 21.00 12/27/19 20:00 100 Mechanical Ventilator 21 12/27/19 20:00 37.4 108 15 135/50 (78) 100 Mechanical Ventilator 21.00 12/27/19 19:26 37.4 103 16 138/49 (78) 100 Mechanical Ventilator 21.00 12/27/19 19:00 37.5 112 20 156/53 (87) 100 Mechanical Ventilator 21.00 12/27/19 19:00 112 12/27/19 18:50 115 88/38 12/27/19 18:09 96 16 100 21 12/27/19 18:00 99 19 97/44 (61) 100 Mechanical Ventilator 30.00 12/27/19 17:00 101 22 100/42 (61) 100 Mechanical Ventilator 30.00 12/27/19 16:00 105 22 108/44 (65) 100 Mechanical Ventilator 30.00 12/27/19 16:00 100 Mechanical Ventilator 21 12/27/19 15:00 105 23 114/48 (70) 100 Mechanical Ventilator 30.00 12/27/19 14:00 102 18 112/48 (69) 100 Mechanical Ventilator 30.00 12/27/19 13:38 101 19 100 21 12/27/19 13:00 103 21 98/47 (64) 100 Mechanical Ventilator 30.00 12/27/19 12:40 103 12/27/19 12:30 100 Mechanical Ventilator 21 12/27/19 12:00 105 19 105/48 (67) 100 Mechanical Ventilator 30.00 12/27/19 11:10 37.2 12/27/19 11:00 109 24 104/48 (66) 100 Mechanical Ventilator 30.00 12/27/19 10:00 117 22 129/48 (75) 100 Mechanical Ventilator 30.00 12/27/19 09:42 112 22 100 30 12/27/19 09:28 125 12/27/19 09:00 113 24 103/48 (66) 100 Mechanical Ventilator 30.00 12/27/19 08:11 121 123/106 12/27/19 08:00 36.6 130 23 123/106 (112) 100 Mechanical Ventilator 30.00 12/27/19 07:38 100 Mechanical Ventilator 30 12/27/19 07:30 100 Mechanical Ventilator 30 12/27/19 07:25 36.5 12/27/19 07:06 125 29 100 30 12/27/19 07:00 36.4 126 29 81/46 (58) 100 Mechanical Ventilator 30.00 12/27/19 06:45 36.5 125 24 76/45 (55) 100 Mechanical Ventilator 30.00 12/27/19 06:30 36.5 125 26 71/44 (53) 100 Mechanical Ventilator 30.00 12/27/19 06:15 36.4 122 23 67/41 (50) 98 Mechanical Ventilator 30.00 12/27/19 06:00 36.4 126 22 81/46 (58) 99 Mechanical Ventilator 30.00 12/27/19 05:58 80/54 12/27/19 05:45 36.3 128 25 80/54 (63) 97 Mechanical Ventilator 30.00 12/27/19 05:30 35.9 129 24 75/43 (54) Mechanical Ventilator 30.00 I & O 12/28/19 07:00 Intake Total 6952.5 ml Output Total 560 ml Balance 6392.5 ml Height & Weight Height: 5'5.00" Weight: 151lbs. 1.0oz. 68.487812ts; 32.00 BMI Method:Stated General Appearance: Moderate Distress, Other (intubated and sedated) HEENT: Other (ETT tube in place, PERRLA, dry mucus mebranes, OGT with dark contents) Neck: No Thyromegaly; Other (ETT in place) Respiratory: Lungs Clear, Other (on vent) Cardiovascular: Regular Rate, Rhythm, No Murmur Capillary Refill: Less Than 3 Seconds Gastrointestinal: non tender, soft; No distended Extremity: Swelling (LLE > RLE) Neurologic/Psychiatric: Other (sedated on vent) Skin: Normal Color, Warm/Dry Lymphatic: No Adenopathy Results Lab Laboratory Tests 12/27/19 02:19 12/27/19 06:00 12/27/19 07:25 12/27/19 11:03 12/27/19 13:30 12/27/19 16:20 12/27/19 21:45 12/28/19 03:00 Assessment/Plan Assessment/Plan Acute respiratory failure -currently on vent -Wean vent -D/C propofol s/p Severe DKA -DKA protocol - d/c'd Severe sepsis -Continue Zosyn and Vanco Hypotension -improved -monitor Sinus tach -Monitor Methamphetamine use -education Acute renal failure -IVF and monitor Metabolic acidosis -IVF -repeat LA Hyponatremia -Monitor -IVF NS Anemia BLESSING SCHULTZ DO Dec 28, 2019 05:28
[2019-12-28] MEDS ORDERED: D5 LR IV SOLUTION 1,000 ML IV SCH (05:30)
[2019-12-28] MEDS ORDERED: inSUlin ASPART (NovoLOG) 1 UNIT/0.01 ML (CHARGE PER UNIT) SC SCH (05:30)
[2019-12-28] MEDS ORDERED: D5 LR IV SOLUTION 1,000 ML IV ONE (06:00)
[2019-12-28 06:55] LABS: CLARITY,URINE CLEAR; COLOR,URINE YELLOW; GLUCOSE, URINE (UA) NEGATIVE (NEGATIVE); KETONES,URINE 1+ (NEGATIVE); LEUKOCYTE ESTERASE ,URINE NEGATIVE (NEGATIVE); NITRITE,URINE NEGATIVE (NEGATIVE); PROTEIN,URINE 3+ (NEGATIVE)
[2019-12-28] MEDS ORDERED: VANCOMYCIN INJECTION 1,000 MG in NS (IVPB) 250 ML IV SCH (07:00)
[2019-12-28 07:10] LABS: BACTERIA,URINE TRACE /HPF; BILIRUBIN,URINE 1+ (NEGATIVE); WBC,URINE 0-2 /HPF
[2019-12-28 07:11] LABS: AMORPHOUS SEDIMENT,UR FEW AMOR URATES /LPF
--- NOTE | 2019-12-28 07:52 | Physical Therapy Progress Note ---
Therapy Progress Note Patient currently sedated and on mechanical ventilator. PT will continue to monitor patient status and initiate assessment when medically stable and able to actively participate with skilled therapy. SHANIKA SHEA PT Dec 28, 2019 07:52
--- NOTE | 2019-12-28 07:54 | Diagnostic Imaging Report ---
Clinical indication: Patient with DKA. Exam: Portable chest x-ray upright view. Comparisons: Portable chest x-ray dated 12/27/2019. Findings: There is slight improved aeration of the right upper lung field with continued increased lung markings. There is interval development of mild right basilar atelectasis. The remainder of the lungs are clear. There is no pleural effusion or pneumothorax. Pulmonary vasculature and cardiac silhouettes within normal limits. Again seen ET tube in stable good position. Right IJ central line in stable good position. Feeding tube seen in good position. Bones show no significant interval abnormality. IMPRESSION: 1: There is slight improved aeration of the right upper lung field with continued increased lung markings. There is interval development of mild right basilar atelectasis. The remainder of the lungs are clear. 2: Stable lines and tubes in good position. Dictated by: Dictated on workstation # [id number]
--- NOTE | 2019-12-28 07:54 | Progress Note - Surgery ---
Subjective Date Seen by a Provider: Dec 28, 2019 Time Seen by a Provider: 07:49 Subjective/Events-last exam Sedated on vent Patient has been extubated. Having mild discomfort epigastric and into pain. Tolerating diet. Hgb increased. No other complaints at this time. Denies n/v fever sweats chills shortness of breath or chest pain. Review of Systems Sedated on vent Focused Exam Lactate Level 12/27/19 04:23: Lactic Acid Level 2.72*H 12/27/19 07:25: Lactic Acid Level 2.33*H 12/27/19 11:03: Lactic Acid Level 1.78 Objective Exam Vital Signs Date Time Temp Pulse Resp B/P (MAP) Pulse Ox O2 Delivery O2 Flow Rate FiO2 12/28/19 07:15 Nasal Cannula 2.00 12/28/19 06:49 121 29 96 21 12/28/19 06:00 36.9 91 16 136/65 (88) 97 Mechanical Ventilator 21.00 12/28/19 05:00 36.9 89 16 123/53 (76) 97 Mechanical Ventilator 21.00 12/28/19 04:00 95 Mechanical Ventilator 21 12/28/19 04:00 36.9 90 17 145/57 (86) 97 Mechanical Ventilator 21.00 12/28/19 03:00 36.9 93 16 103/50 (67) 97 Mechanical Ventilator 21.00 12/28/19 02:29 37.74025 92 16 125/52 97 Mechanical Ventilator 2.00 12/28/19 02:04 92 16 97 21 12/28/19 02:00 36.9 91 15 126/52 (76) 97 Mechanical Ventilator 21.00 12/28/19 01:00 98 12/28/19 01:00 36.8 98 15 129/52 (77) 97 Mechanical Ventilator 21.00 12/28/19 00:00 37.0 105 16 152/55 (87) 97 Mechanical Ventilator 21.00 12/28/19 00:00 100 Mechanical Ventilator 21 12/27/19 23:00 37.1 103 16 152/53 (86) 97 Mechanical Ventilator 21.00 12/27/19 22:00 37.2 99 16 133/47 (75) 96 Mechanical Ventilator 21.00 12/27/19 21:39 98 15 100 21 12/27/19 21:00 37.3 102 16 169/53 (91) 100 Mechanical Ventilator 21.00 12/27/19 20:00 100 Mechanical Ventilator 21 12/27/19 20:00 37.4 108 15 135/50 (78) 100 Mechanical Ventilator 21.00 12/27/19 19:26 37.4 103 16 138/49 (78) 100 Mechanical Ventilator 21.00 12/27/19 19:00 37.5 112 20 156/53 (87) 100 Mechanical Ventilator 21.00 12/27/19 19:00 112 12/27/19 18:50 115 88/38 12/27/19 18:09 96 16 100 21 12/27/19 18:00 99 19 97/44 (61) 100 Mechanical Ventilator 30.00 12/27/19 17:00 101 22 100/42 (61) 100 Mechanical Ventilator 30.00 12/27/19 16:00 105 22 108/44 (65) 100 Mechanical Ventilator 30.00 12/27/19 16:00 100 Mechanical Ventilator 21 12/27/19 15:00 105 23 114/48 (70) 100 Mechanical Ventilator 30.00 12/27/19 14:00 102 18 112/48 (69) 100 Mechanical Ventilator 30.00 12/27/19 13:38 101 19 100 21 12/27/19 13:00 103 21 98/47 (64) 100 Mechanical Ventilator 30.00 12/27/19 12:40 103 12/27/19 12:30 100 Mechanical Ventilator 21 12/27/19 12:00 105 19 105/48 (67) 100 Mechanical Ventilator 30.00 12/27/19 11:10 37.2 12/27/19 11:00 109 24 104/48 (66) 100 Mechanical Ventilator 30.00 12/27/19 10:00 117 22 129/48 (75) 100 Mechanical Ventilator 30.00 12/27/19 09:42 112 22 100 30 12/27/19 09:28 125 12/27/19 09:00 113 24 103/48 (66) 100 Mechanical Ventilator 30.00 12/27/19 08:11 121 123/106 12/27/19 08:00 36.6 130 23 123/106 (112) 100 Mechanical Ventilator 30.00 I & O 12/28/19 07:00 Intake Total 6952.5 ml Output Total 685 ml Balance 6267.5 ml Capillary Refill : Less Than 3 Seconds General Appearance: No Apparent Distress HEENT: PERRL/EOMI Neck: Carotid Bruit; No Thyromegaly Respiratory: Chest Non Tender, No Accessory Muscle Use, No Respiratory Distress Cardiovascular: Tachycardia Gastrointestinal: non tender, soft, no organomegaly; No distended Extremity: Swelling (LLE > RLE) Neurologic/Psychiatric: Alert, Oriented x3, No Motor/Sensory Deficits, Normal 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, 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 Norm as Tested Skin: Normal Color, Warm/Dry Lymphatic: No Adenopathy Results Lab Laboratory Tests 12/27/19 08:44: Blood Gas Puncture Site LR, Blood Gas Patient Temperature 36.7, Arterial Blood pH 7.36L, Arterial Blood Partial Pressure CO2 23L, Arterial Blood Partial Pressure O2 114H, Arterial Blood HCO3 13*L, Arterial Blood Total CO2 13.5L, Arterial Blood Oxygen Saturation 97, Arterial Blood Base Excess -11.7L, Long Test YES-POS, Blood Gas Ventilator Setting YES, Blood Gas Inspired Oxygen 30% 12/27/19 09:59: Glucometer 569*H 12/27/19 11:03: Sodium Level 132L, Potassium Level 4.3, Chloride Level 98, Carbon Dioxide Level 15L, Anion Gap 19H, Blood Urea Nitrogen 54H, Creatinine 2.54H, Estimat Glomerular Filtration Rate 20, BUN/Creatinine Ratio 21, Glucose Level 524*H, Lactic Acid Level 1.78, Calcium Level 7.5L, Corrected Calcium 9.1, Phosphorus Level 4.3, Magnesium Level 2.0, Total Bilirubin 0.2, Aspartate Amino Transf (AST/SGOT) 25, Alanine Aminotransferase (ALT/SGPT) 29, Alkaline Phosphatase 89, Total Protein 4.7L, Albumin 2.0L 12/27/19 11:14: Blood Gas Puncture Site LR, Blood Gas Patient Temperature 37.3, Arterial Blood pH 7.38, Arterial Blood Partial Pressure CO2 30L, Arterial Blood Partial Pressure O2 79, Arterial Blood HCO3 17*L, Arterial Blood Total CO2 17.8L, Ar terial Blood Oxygen Saturation 95, Arterial Blood Base Excess -7.2L, Long Test YES-POS, Blood Gas Ventilator Setting YES, Blood Gas Inspired Oxygen 21% 12/27/19 11:36: Glucometer 452*H 12/27/19 12:33: Glucometer 464*H 12/27/19 13:30: Hemoglobin 9.6L, Hematocrit 28L, Sodium Level 133L, Potassium Level 4.8, Chloride Level 101, Carbon Dioxide Level 17L, Anion Gap 15H, Blood Urea Nitrogen 54H, Creatinine 2.57H, Estimat Glomerular Filtration Rate 19, BUN/Creatinine Ratio 21, Glucose Level 421*H, Calcium Level 7.6L, Corrected Calcium 9.2, Phosphorus Level 4.0, Magnesium Level 1.9, Total Bilirubin 0.3, Aspartate Amino Transf (AST/SGOT) 26, Alanine Aminotransferase (ALT/SGPT) 28, Alkaline Phosphatase 86, Total Protein 4.6L, Albumin 2.0L 12/27/19 13:34: Glucometer 383H 12/27/19 14:30: Glucometer 388H 12/27/19 15:23: Glucometer 382H 12/27/19 16:20: Sodium Level 134L, Potassium Level 4.4, Chloride Level 103, Carbon Dioxide Level 17L, Anion Gap 14, Blood Urea Nitrogen 54H, Creatinine 2.60H, Estimat Glomerular Filtration Rate 19, BUN/Creatinine Ratio 21, Glucose Level 415*H, Calcium Level 7.5L, Corrected Calcium 9.2, Phosphorus Level 3.4, Magnesium Level 1.7, Total Bilirubin 0.3, Aspartate Amino Transf (AST/SGOT) 28, Alanine Aminotransferase (ALT/SGPT) 29, Alkaline Phosphatase 83, Total Protein 4.4L, Albumin 1.9L 12/27/19 16:22: Glucometer 425*H 12/27/19 17:37: Glucometer 349H 12/27/19 18:53: Glucometer 310H 12/27/19 19:32: Glucometer 222H 12/27/19 20:00: Glucometer 249H 12/27/19 21:11: Glucometer 250H 12/27/19 21:45: Sodium Level 134L, Potassium Level 4.4, Chloride Level 105, Carbon Dioxide Level 19L, Anion Gap 10, Blood Urea Nitrogen 52H, Creatinine 2.53H, Estimat Glomerular Filtration Rate 20, BUN/Creatinine Ratio 21, Glucose Level 240H, Calcium Level 7.6L, Corrected Calcium 9.2, Phosphorus Level 2.8, Magnesium Level 1.8, Total Bilirubin 0.2, Aspartate Amino Transf (AST/SGOT) 32, Alanine Aminotransferase (ALT/SGPT) 30, Alkaline Phosphatase 86, Total Protein 4.7L, Albumin 2.0L 12/27/19 22:09: Glucometer 223H 12/28/19 00:16: Glucometer 185H 12/28/19 03:00: White Blood Count 13.3H, Red Blood Count 3.25L, Hemoglobin 10.4L, Hematocrit 30L , Mean Corpuscular Volume 91, Mean Corpuscular Hemoglobin 32, Mean Corpuscular Hemoglobin Concent 35, Red Cell Distribution Width 14.4, Platelet Count 216, Mean Platelet Volume 9.6, Neutrophils (%) (Auto) 76H, Lymphocytes (%) (Auto) 19, Monocytes (%) (Auto) 5, Eosinophils (%) (Auto) 0, Basophils (%) (Auto) 0, Neutrophils # (Auto) 10.1H, Lymphocytes # (Auto) 2.5, Monocytes # (Auto) 0.7, Eosinophils # (Auto) 0.1, Basophils # (Auto) 0.0, Blood Gas Puncture Site LEFT ART LINE, Blood Gas Patient Temperature 36.9, Arterial Blood pH 7.40, Arterial Blood Partial Pressure CO2 34L, Arterial Blood Partial Pressure O2 87, Arterial Blood HCO3 21L, Arterial Blood Total CO2 22.0, Arterial Blood Oxygen Saturation 96, Arterial Blood Base Excess -3.0L, Long Test ART LINE, Blood Gas Ventilator Setting NO, Blood Gas Inspired Oxygen 21%, Sodium Level 134L, Potassium Level 4.4, Chloride Level 106, Carbon Dioxide Level 18L, Anion Gap 10, Blood Urea Nitrogen 49H, Creatinine 2.40H, Estimat Glomerular Filtration Rate 21, BUN/Creat inine Ratio 20, Glucose Level 179H, Calcium Level 7.6L, Corrected Calcium 9.1, Phosphorus Level 2.7, Magnesium Level 1.8, Total Bilirubin 0.2, Aspartate Amino Transf (AST/SGOT) 33, Alanine Aminotransferase (ALT/SGPT) 29, Alkaline Phosphatase 79, Total Protein 4.9L, Albumin 2.1L, Beta-Hydroxybutyrate (Chem panel) 2.10H 12/28/19 06:30: Urine Color YELLOW, Urine Clarity CLEAR, Urine pH 6.0, Urine Specific Flanagan 1.025H, Urine Protein 3+H, Urine Glucose (UA) NEGATIVE, Urine Ketones 1+H, Urine Nitrite NEGATIVE, Urine Bilirubin 1+H, Urine Urobilinogen 0.2, Urine Leukocyte Esterase NEGATIVE, Urine RBC (Auto) 1+H, Urine RBC NONE, Urine WBC 0-2, Urine Squamous Epithelial Cells 5-10, Urine Crystals PRESENTH, Urine Amorphous Sediment FEW JOSH URATESH, Urine Bacteria TRACE, Urine Casts NONE, Urine Mucus SMALLH, Urine Culture Indicated NO Microbiology 12/27/19 Gram Stain - Final, Resulted 12/27/19 Sputum Culture, Resulted Pending Assessment/Plan Assessment/Plan Assessment/Plan Severe DKA, metabolic acidosis, Acute respiratory failure, extubated Leukocytosis, trending down Hypotension, improved, Acute on chronic renal failure upper gi bleed with hx of ulcers, and GERD Anemia, Hb improved PPI, IV access, fluid resuscitation, follow hgb and transfuse prbc as needed, no surgical intervention if continue to drop hgb would do egd, if stable continue conservative measures will follow Clinical Quality Measures DVT/VTE Risk/Contraindication: Risk Factor Score Per Nursin RFS Level Per Nursing on Admit: 4+=Very High Supervisory-Addendum Brief Verification & Attestation Participated in pt care: history, MDM, physical Personally performed: exam, history, MDM, supervision of care Care discussed with: Medical Student Procedures: n/a Results interpretation: Verified all documentation Verification and Attestation of Medical Student E/M Service A medical student performed and documented this service in my presence. I reviewed and verified all information documented by the medical student and made modifications to such information, when appropriate. I personally performed the physical exam and medical decision making. Enriqueta Garner, Dec 28, 2019,21:03 ST[facility]EN CORMI[facility] Dec 28, 2019 07:54 ENRIQUETA GARNER DO Dec 28, 2019 21:03
--- NOTE | 2019-12-28 07:58 | Progress Note - Hospitalist ---
Subjective HPI/CC On Admission Date Seen by Provider: Dec 28, 2019 Time Seen by Provider: 07:54 Pt is a 54yoCF witha PMH of IDDMII, methamphetamine use, CKD who presented to the ER due to altered mental status. She is currently treated and sedated and unable to provide any review of systems. Her mother is at bedside but is limited use in history other than that she is a type I diabetic and had been very thirsty lately.. All history is obtained from review of records. Reportedly she was found by her son on the ground unresponsive and moaning. EMS was called and she was found to have a temperature of 93F. She was also found to have a blood sugar reading of high per their device. On arrival to the ER she was found to be in severe DKA with blood sugars are greater than 1000 and a bicarbonate of less than 5. She was found to be 7.05. She was intubated in the ER and admitted to the ICU for DKA protocol. Subjective/Events-last exam Pt reports feeling poorly and like she " was crunched." No specifics complaints. Requesting something to drink. Was just extubated. Focused Exam Lactate Level 12/27/19 04:23: Lactic Acid Level 2.72*H 12/27/19 07:25: Lactic Acid Level 2.33*H 12/27/19 11:03: Lactic Acid Level 1.78 Objective Exam Vital Signs Vital Signs Date Time Temp Pulse Resp B/P (MAP) Pulse Ox O2 Delivery O2 Flow Rate FiO2 12/28/19 07:15 Nasal Cannula 2.00 12/28/19 06:49 121 29 96 21 12/28/19 06:00 36.9 136/65 (88) Capillary Refill : Less Than 3 Seconds General Appearance: Chronically ill, Other (drowsy) Respiratory: Lungs Clear, No Respiratory Distress Cardiovascular: Regular Rate, Rhythm, No Murmur Gastrointestinal: Normal Bowel Sounds, Soft Extremity: Swelling (of feet and hands) Neurologic/Psychiatric: Other (alert and oriented to person) Results/Procedures Lab Laboratory Tests 12/27/19 11:03 12/27/19 13:30 12/27/19 16:20 12/27/19 21:45 12/28/19 03:00 Patient resulted labs reviewed. Imaging: Reviewed Imaging Report Assessment/Plan Assessment and Plan Assess & Plan/Chief Complaint DKA IDDMI Off insulin gtt since last night Continue bolus insulin A1c 14.8, reports not taking her insulin as prescribed Hypovolemic shock LULY on CKD Continue LR Monitor UOP- dropped somewhat overnight, trend Still on levophed, wean as able Acute Respiratory Failure- now extubated On vent Management per Dr Winkler, appreciate recs LLE edema h/o of DVT USG negative for DVT Normocytic anemia OGT with dark content PPI Consult Surgery, appreciate recs- no plan for EGD at this time Methamphetamine use Will discuss sedation when alert Critical Care Critically Ill Patient Diagnosis/Problems Diagnosis/Problems (1) Acute respiratory failure requiring reintubation Status: Acute (2) Methamphetamine abuse Status: Acute (3) Diabetic ketoacidosis Status: Acute Qualifiers: Diabetes mellitus type: type 2 Diabetes mellitus complication detail: with coma Qualified Codes: E11.11 - Type 2 diabetes mellitus with ketoacidosis with coma (4) Acute kidney injury superimposed on chronic kidney disease Status: Acute (5) High anion gap metabolic acidosis Status: Acute (6) Leukocytosis Status: Acute (7) Lactic acidosis Status: Acute (8) Dehydration Status: Acute (9) Hypotension Status: Acute (10) Altered mental status Status: Acute Clinical Quality Measures DVT/VTE Risk/Contraindication: Risk Factor Score Per Nursin RFS Level Per Nursing on Admit: 4+=Very High TRUDI SERRANO MD Dec 28, 2019 07:58
--- NOTE | 2019-12-28 08:02 | Occ Therapy Progress Note ---
Therapy Progress Note Pt is currently sedated and intubated. OT to hold therapy on this day and complete eval/ treat when pt medically stable and able to participate in skilled therapy session. JAIRO COLEY OT Dec 28, 2019 08:02
[2019-12-28] MEDS: PANTOPRAZOLE 40 MG (PROTONIX) VIAL IV SCH ×2 (09:56→19:57)
[2019-12-28] MEDS: ENOXAPARIN 30 MG/0.3 ML (LOVENOX) SYR SC SCH (09:56)
[2019-12-28] MEDS: hydrOXYzine (ATARAX) 10 MG TAB PO PRN (12:47)
[2019-12-28 13:50] LABS: ALBUMIN 1.9 GM/DL (3.2-4.5); BILIRUBIN,TOTAL 0.3 MG/DL (0.1-1.0); CALCIUM 7.4 MG/DL (8.5-10.1); CREATININE SERUM 2.16 MG/DL (0.60-1.30); MAGNESIUM 1.6 MG/DL (1.6-2.4); POTASSIUM 3.5 MMOL/L (3.6-5.0); TOTAL PROTEIN 4.5 GM/DL (6.4-8.2)
--- NOTE | 2019-12-28 15:06 | NUR ---
DR SCHULTZ UPDATED MOST RECENT LABS. NEW ORDERS RECEIVED AND ORDERS PLACED.
[2019-12-28] MEDS ORDERED: POTASSIUM PHOSPHATE INJ 30 MM in NS (IVPB) 250 ML IV ONE (15:15)
[2019-12-28] MEDS: MAGNESIUM 1 GM/100 ML IVPB 100 ML IV SCH ×3 (15:47→18:45)
[2019-12-28] MEDS: ACETAMINOPHEN 325 MG TABLET PO PRN (16:04)
--- NOTE | 2019-12-28 16:06 | NUR ---
ARTERIAL LINE FROM LEFT WRIST REMOVED AFTER APPROVAL FROM DR SCHULTZ WITH NO COMPLICATIONS. PT UP TO CHAIR WITH X 1 ASSIST.
[2019-12-28] MEDS: MONTELUKAST CHEW 5 MG (SINGULAIR) TAB PO SCH (19:57)
[2019-12-28] MEDS: DICLOFENAC 1% GEL 100 GM (VOLTAREN) TUBE TOP SCH (19:57)
[2019-12-29] VITALS (11 sets, daily range): BP systolic 104–160; BP diastolic 60–86
[2019-12-29] MEDS: ACETAMINOPHEN 325 MG TABLET PO PRN (00:40)
[2019-12-29] MEDS: RT-ALBUTEROL/IPRATROPIUM 3 ML (DUONEB) VIAL INH SCH ×7 (01:34→21:39)
[2019-12-29] MEDS: LACTATED RINGERS 1,000 ML IV SCH (01:53)
[2019-12-29 02:28] LABS: BASOPHILS % (AUTO) 0 % (0-10); EOSINOPHILS # (AUTO) 0.1 10^3/uL (0.0-0.3); EOSINOPHILS % (AUTO) 0 % (0-10); HEMATOCRIT 28 % (35-52); HEMOGLOBIN 9.4 G/DL (11.5-16.0); LYMPHOCYTES # (AUTO) 1.7 X 10^3 (1.0-4.0); LYMPHOCYTES % (AUTO) 15 % (12-44); MEAN CORPUSCULAR HEMOGLOBIN 32 PG (25-34); MEAN CORPUSCULAR HGB CONC 34 G/DL (32-36); MEAN CORPUSCULAR VOLUME 94 FL (80-99); MEAN PLATELET VOLUME 8.9 FL (7.4-10.4); MONOCYTES # (AUTO) 0.6 X 10^3 (0.0-1.0); MONOCYTES % (AUTO) 5 % (0-12); NEUTROPHILS # (AUTO) 9.1 X 10^3 (1.8-7.8); NEUTROPHILS % (AUTO) 79 % (42-75); PLATELET COUNT 155 10^3/uL (130-400); RED CELL DISTRIBUTION WIDTH 15.1 % (10.0-14.5); WHITE BLOOD COUNT 11.5 10^3/uL (4.3-11.0)
[2019-12-29 02:47] LABS: CALCIUM 7.7 MG/DL (8.5-10.1); CREATININE SERUM 1.59 MG/DL (0.60-1.30); MAGNESIUM 1.9 MG/DL (1.6-2.4); PHOSPHORUS 1.8 MG/DL (2.3-4.7); POTASSIUM 2.8 MMOL/L (3.6-5.0)
[2019-12-29] MEDS: MAGNESIUM 1 GM/100 ML IVPB 100 ML IV SCH (02:49)
[2019-12-29] MEDS: KCL 20 MEQ TAB (K-DUR) PO SCH (02:49)
[2019-12-29] MEDS ORDERED: DEXTROSE 50% 50 ML (IMS) SYR ONE (02:52)
[2019-12-29] MEDS ORDERED: DEXTROSE 50% 50 ML (IMS) SYR IV ONE ×2 (03:00→04:15)
--- NOTE | 2019-12-29 03:00 | NUR ---
pt called nurse into room due to patient feeling sweaty and uncomfortable. finger stick blood glucose revealed glucose level of 30. 1 amp d50 given per protocol. will continue to monitor.
[2019-12-29] MEDS: inSUlin ASPART (NovoLOG) 1 UNIT/0.01 ML (CHARGE PER UNIT) SC SCH ×5 (03:09→21:01)
[2019-12-29] MEDS ORDERED: D5 LR IV SOLUTION 1,000 ML IV ONE (03:59)
--- NOTE | 2019-12-29 04:14 | NUR ---
accucheck at 0312- 113 accucheck at 0400- 69 orders given for d5lr at 150ml/hr, 1/2 amp of d50 and q2hr accuchecks per dr egan.
[2019-12-29] MEDS ORDERED: D5 LR IV SOLUTION 1,000 ML IV SCH (04:15)
[2019-12-29] MEDS ORDERED: FUROSEMIDE 40 MG/4 ML INJ (LASIX) IVP ONE (04:30)
--- NOTE | 2019-12-29 04:33 | Pulmonary Progress Note ---
Subjective Time Seen by a Provider: 04:32 Subjective/Events-last exam Pt had episodes of hypoglycemia last night. Sepsis Event Evaluation Height, Weight, BMI Height: 5'5.00" Weight: 151lbs. 1.0oz. 68.956231dn; 32.00 BMI Method:Stated Focused Exam Lactate Level 12/27/19 04:23: Lactic Acid Level 2.72*H 12/27/19 07:25: Lactic Acid Level 2.33*H 12/27/19 11:03: Lactic Acid Level 1.78 Exam Exam Vital Signs Date Time Temp Pulse Resp B/P (MAP) Pulse Ox O2 Delivery O2 Flow Rate FiO2 12/29/19 03:34 36.0 12/29/19 03:32 97 Room Air 12/29/19 02:18 112 13 95 Nasal Cannula 2.00 12/29/19 02:00 115 17 116/60 (78) 95 Room Air 12/29/19 01:35 94 Room Air 12/29/19 01:18 126 12/29/19 01:00 121 23 123/70 (87) 93 Room Air 12/29/19 00:00 123 30 132/81 (98) 93 Room Air 12/28/19 23:14 36.6 12/28/19 23:14 97 Room Air 12/28/19 23:00 124 23 119/74 (89) 95 Room Air 12/28/19 22:00 123 18 132/83 (99) 94 Room Air 12/28/19 21:27 97 Room Air 12/28/19 21:00 123 17 131/71 (91) 97 Room Air 12/28/19 20:00 97 Room Air 12/28/19 20:00 36.8 12/28/19 20:00 123 26 121/62 (81) 97 Room Air 12/28/19 19:03 120 12/28/19 19:00 116 21 119/72 (88) 94 Room Air 12/28/19 18:02 98 Room Air 12/28/19 17:00 124 14 118/74 (89) 97 Nasal Cannula 2.00 12/28/19 16:07 97 Room Air 12/28/19 16:04 38.4 12/28/19 16:00 122 20 169/63 (98) 96 Nasal Cannula 2.00 12/28/19 16:00 38.4 12/28/19 15:00 124 35 126/49 (74) 93 Nasal Cannula 2.00 12/28/19 14:19 97 Room Air 12/28/19 14:00 120 21 125/47 (73) 96 Nasal Cannula 2.00 12/28/19 13:00 120 22 101/42 (61) 97 Nasal Cannula 2.00 12/28/19 12:42 125 12/28/19 12:30 37.7 12/28/19 12:15 98 Nasal Cannula 3.00 12/28/19 12:00 124 30 143/48 (79) 95 Nasal Cannula 2.00 12/28/19 11:00 36.6 116 19 113/44 (67) 100 Nasal Cannula 2.00 12/28/19 10:36 100 Nasal Cannula 3.00 12/28/19 10:00 36.7 105 21 114/50 (71) 98 Nasal Cannula 2.00 12/28/19 09:00 36.7 106 17 85/46 (59) 97 Nasal Cannula 2.00 12/28/19 08:00 36.6 123 24 131/52 (78) 97 Nasal Cannula 2.00 12/28/19 07:45 98 Nasal Cannula 3.00 12/28/19 07:15 Nasal Cannula 2.00 12/28/19 07:00 36.8 113 29 96/51 (66) 92 Mechanical Ventilator 21.00 12/28/19 06:49 121 29 96 21 12/28/19 06:43 118 12/28/19 06:00 36.9 91 16 136/65 (88) 97 Mechanical Ventilator 21.00 12/28/19 05:00 36.9 89 16 123/53 (76) 97 Mechanical Ventilator 21.00 I & O 12/29/19 07:00 Intake Total 5180 ml Output Total 4350 ml Balance 830 ml Height & Weight Height: 5'5.00" Weight: 151lbs. 1.0oz. 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 Pulmonary edema secondary to IVF -Give 40lasix x 1 Severe sepsis -- improving - Zosyn -- Change to Augmentin Hypokalemia/hypophos -replace Methamphetamine use -education Acute renal failure -IVF and monitor Metabolic acidosis -IVF Anemia BLESSING SCHULTZ DO Dec 29, 2019 04:33
[2019-12-29] MEDS: PIPERACILLIN/TAZOBACTAM (BULK) 4.5 GM in NS (IVPB) 100 ML IV SCH (04:54)
[2019-12-29] MEDS: POTASSIUM CL 10MEQ/50ML IVPB 50 ML IV SCH ×4 (04:54→05:37)
[2019-12-29] MEDS ORDERED: D5 1/2 NS 1000 ML IV SOLUTION 1,000 ML IV SCH (05:30)
[2019-12-29] MEDS ORDERED: TROUGH ORDER-PHARMACY XX NR (06:00)
--- NOTE | 2019-12-29 07:17 | Progress Note - Surgery ---
[facility] 12/29/19 0717: Subjective Date Seen by a Provider: Dec 29, 2019 Time Seen by a Provider: 07:12 Subjective/Events-last exam pt extubated yesterday. alert now. c/o diaphoresis, and general discomfort. denies any abd pain, N/V, diarrhea, or constipation Review of Systems General: No Chills; Night Sweats; No Fatigue HEENT: No Head Aches, No Visual Changes Pulmonary: Dyspnea; No Cough Cardiovascular: No: Chest Pain, Palpitations Gastrointestinal: No: Nausea, Vomiting, Abdominal Pain, Diarrhea Focused Exam Lactate Level 12/27/19 04:23: Lactic Acid Level 2.72*H 12/27/19 07:25: Lactic Acid Level 2.33*H 12/27/19 11:03: Lactic Acid Level 1.78 Objective Exam Vital Signs Date Time Temp Pulse Resp B/P (MAP) Pulse Ox O2 Delivery O2 Flow Rate FiO2 12/29/19 07:04 96 Room Air 12/29/19 06:00 109 33 142/77 (98) 97 Nasal Cannula 2.00 12/29/19 05:00 105 14 141/83 (102) 98 Nasal Cannula 2.00 12/29/19 04:00 109 14 158/86 (110) 99 Nasal Cannula 2.00 12/29/19 03:34 36.0 12/29/19 03:32 97 Room Air 12/29/19 03:00 103 16 104/62 (76) 93 Nasal Cannula 2.00 12/29/19 02:18 112 13 95 Nasal Cannula 2.00 12/29/19 02:00 115 17 116/60 (78) 95 Room Air 12/29/19 01:35 94 Room Air 12/29/19 01:18 126 12/29/19 01:00 121 23 123/70 (87) 93 Room Air 12/29/19 00:00 123 30 132/81 (98) 93 Room Air 12/28/19 23:14 36.6 12/28/19 23:14 97 Room Air 12/28/19 23:00 124 23 119/74 (89) 95 Room Air 12/28/19 22:00 123 18 132/83 (99) 94 Room Air 12/28/19 21:27 97 Room Air 12/28/19 21:00 123 17 131/71 (91) 97 Room Air 12/28/19 20:00 97 Room Air 12/28/19 20:00 36.8 12/28/19 20:00 123 26 121/62 (81) 97 Room Air 12/28/19 19:03 120 12/28/19 19:00 116 21 119/72 (88) 94 Room Air 12/28/19 18:02 98 Room Air 12/28/19 17:00 124 14 118/74 (89) 97 Nasal Cannula 2.00 12/28/19 16:07 97 Room Air 12/28/19 16:04 38.4 12/28/19 16:00 122 20 169/63 (98) 96 Nasal Cannula 2.00 12/28/19 16:00 38.4 12/28/19 15:00 124 35 126/49 (74) 93 Nasal Cannula 2.00 12/28/19 14:19 97 Room Air 12/28/19 14:00 120 21 125/47 (73) 96 Nasal Cannula 2.00 12/28/19 13:00 120 22 101/42 (61) 97 Nasal Cannula 2.00 12/28/19 12:42 125 12/28/19 12:30 37.7 12/28/19 12:15 98 Nasal Cannula 3.00 12/28/19 12:00 124 30 143/48 (79) 95 Nasal Cannula 2.00 12/28/19 11:00 36.6 116 19 113/44 (67) 100 Nasal Cannula 2.00 12/28/19 10:36 100 Nasal Cannula 3.00 12/28/19 10:00 36.7 105 21 114/50 (71) 98 Nasal Cannula 2.00 12/28/19 09:00 36.7 106 17 85/46 (59) 97 Nasal Cannula 2.00 12/28/19 08:00 36.6 123 24 131/52 (78) 97 Nasal Cannula 2.00 12/28/19 07:45 98 Nasal Cannula 3.00 12/28/19 07:15 Nasal Cannula 2.00 I & O 12/29/19 07:00 Intake Total 5780 ml Output Total 6300 ml Balance -520 ml Capillary Refill : Less Than 3 Seconds General Appearance: No Apparent Distress, WD/WN Neck: No Thyromegaly Respiratory: Chest Non Tender, No Accessory Muscle Use, No Respiratory Distress Cardiovascular: No JVD, No Murmur, Tachycardia Gastrointestinal: non tender, soft, no organomegaly; No distended Extremity: Swelling (LLE > RLE) Neurologic/Psychiatric: Alert, Oriented x3, No Motor/Sensory Deficits, Normal 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/Affect, 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 Norm as Tested Skin: Normal Color, Warm/Dry Lymphatic: No Adenopathy Results Lab Laboratory Tests 12/28/19 08:26: Glucometer 324H 12/28/19 11:35: Glucometer 296H 12/28/19 13:17: Sodium Level 135, Potassium Level 3.5L, Chloride Level 108H, Carbon Dioxide Level 19L, Anion Gap 8, Blood Urea Nitrogen 40H, Creatinine 2.16H, Estimat Glomerular Filtration Rate 24, BUN/Creatinine Ratio 19, Glucose Level 290H, Calcium Level 7.4L, Corrected Calcium 9.1, Phosphorus Level 2.0L, Magnesium Level 1.6, Total Bilirubin 0.3, Aspartate Amino Transf (AST/SGOT) 35H, Alanine Aminotransferase (ALT/SGPT) 29, Alkaline Phosphatase 68, Total Protein 4.5L, Albumin 1.9L 12/28/19 16:00: Glucometer 194H 12/28/19 19:40: Glucometer 196H 12/28/19 23:09: Glucometer 76 12/29/19 02:21: White Blood Count 11.5H, Red Blood Count 2.95L, Hemoglobin 9.4L, Hematocrit 28L, Mean Corpuscular Volume 94, Mean Corpuscular Hemoglobin 32, Mean Corpuscular He moglobin Concent 34, Red Cell Distribution Width 15.1H, Platelet Count 155, Mean Platelet Volume 8.9, Neutrophils (%) (Auto) 79H, Lymphocytes (%) (Auto) 15, Monocytes (%) (Auto) 5, Eosinophils (%) (Auto) 0, Basophils (%) (Auto) 0, Neutrophils # (Auto) 9.1H, Lymphocytes # (Auto) 1.7, Monocytes # (Auto) 0.6, Eosinophils # (Auto) 0.1, Basophils # (Auto) 0.0, Sodium Level 142, Potassium Level 2.8L, Chloride Level 112H, Carbon Dioxide Level 22, Anion Gap 8, Blood Urea Nitrogen 27H, Creatinine 1.59H, Estimat Glomerular Filtration Rate 34, BUN/Creatinine Ratio 17, Glucose Level 32*L, Calcium Level 7.7L, Phosphorus Level 1.8L, Magnesium Level 1.9 12/29/19 02:55: Glucometer 31*L 12/29/19 03:12: Glucometer 113H 12/29/19 03:59: Glucometer 69L 12/29/19 05:35: Glucometer 101 Microbiology 12/27/19 Gram Stain - Final, Resulted 12/27/19 Sputum Culture - Preliminary, Resulted YEAST Usual upper respiratory tushar 12/27/19 Blood Culture - Preliminary, Resulted No growth 12/27/19 Urine Culture - Final, Complete NO GROWTH Assessment/Plan Assessment/Plan Assessment/Plan DKA resolved now Acute respiratory failure, extubated Leukocytosis, trending down Hypoglycemic episodes, managed by Primary care team Started on lasix 2/2 pulmonary edema Hypokalemia & Hypophosphatemia- replacement Acute renal failure, creatinine trending down, GIB-PPI, IV access, fluid resuscitation, follow hgb and transfuse prbc as needed, Anemia, continue to monitor Hb no surgical intervention if continue to drop hgb would do egd, if stable continue conservative measures Clinical Quality Measures DVT/VTE Risk/Contraindication: Risk Factor Score Per Nursin RFS Level Per Nursing on Admit: 4+=Very High ENRIQUETA GARNER DO 12/29/19 1300: Subjective Subjective/Events-last exam tired, minimal epigastric pain. no nausea or emesis. tolerating diet. Denies n/v fever sweats chills shortness of breath or chest pain. hgb slight drop Objective Exam General Appearance: No Apparent Distress, WD/WN HEENT: PERRL/EOMI Neck: Normal Inspection, Non Tender Respiratory: Chest Non Tender, No Accessory Muscle Use, No Respiratory Distress Cardiovascular: Tachycardia Gastrointestinal: non tender, soft, no organomegaly Extremity: Swelling (LLE > RLE) Neurologic/Psychiatric: Alert, Oriented x3 Skin: Normal Color, Warm/Dry Lymphatic: No Adenopathy Assessment/Plan Assessment/Plan Assessment/Plan DKA Acute respiratory failure, extubated Leukocytosis, trending down Hypoglycemic episodes, managed by Primary care team Started on lasix 2/2 pulmonary edema Hypokalemia & Hypophosphatemia- replacement Acute renal failure, creatinine trending down, GIB, History of ulcers-PPI, IV access, fluid resuscitation, follow hgb and transfuse prbc as needed, Anemia, continue to monitor Hb no surgical intervention if continue to drop hgb would do egd, if stable continue conservative measures Supervisory-Addendum Brief Verification & Attestation Participated in pt care: history, MDM, physical Personally performed: exam, history, MDM, supervision of care Care discussed with: Medical Student Procedures: n/a Results interpretation: Verified all documentation Verification and Attestation of Medical Student E/M Service A medical student performed and documented this service in my presence. I reviewed and verified all information documented by the medical student and made modifications to such information, when appropriate. I personally performed the physical exam and medical decision making. Enriqueta Garner, Dec 29, 2019,13:00 [facility] Dec 29, 2019 07:17 ENRIQUETA GARNER DO Dec 29, 2019 13:00
[2019-12-29] MEDS ORDERED: KCL 10 MEQ TAB (MICRO K) PO ONE (08:00)
[2019-12-29] MEDS ORDERED: KCL 20 MEQ TAB (K-DUR) PO ONE (08:00)
[2019-12-29] MEDS: DICLOFENAC 1% GEL 100 GM (VOLTAREN) TUBE TOP SCH ×4 (08:16→21:02)
[2019-12-29] MEDS: ENOXAPARIN 30 MG/0.3 ML (LOVENOX) SYR SC SCH (08:16)
[2019-12-29] MEDS: AUGMENTIN 500 MG TAB (AMOXICILLIN/CLAVULANATE) PO SCH ×2 (08:16→16:48)
[2019-12-29] MEDS: hydrOXYzine (ATARAX) 10 MG TAB PO PRN (08:17)
[2019-12-29] MEDS: PANTOPRAZOLE 40 MG (PROTONIX) VIAL IV SCH ×2 (08:18→21:00)
--- NOTE | 2019-12-29 08:37 | Diagnostic Imaging Report ---
INDICATION: Diabetic ketoacidosis. COMPARISON: 12/28/2019. FINDINGS: There is cardiomegaly and some venous congestion. There is no pleural effusion or pneumothorax. The mediastinum is unremarkable. The ET and NG tubes have been removed. The right internal jugular central venous catheter remains in satisfactory position. IMPRESSION: Cardiomegaly and some moderate central pulmonary venous congestion. Dictated by: Dictated on workstation # [id number]
[2019-12-29] MEDS ORDERED: POTASSIUM PHOSPHATE INJ 30 MM in NS (IVPB) 250 ML IV ONE (09:00)
--- NOTE | 2019-12-29 09:56 | Physical Therapy Evaluation ---
PT Evaluation-General Medical Diagnosis Admission Date Dec 27, 2019 at 04:00 Medical Diagnosis: DKA Onset Date: Dec 27, 2019 Therapy Diagnosis Therapy Diagnosis: impaired mobility, strength, endurance Height/Weight Height (Feet): 5 Height (Inches): 5.00 Weight (Pounds): 151 Weight (Ounces): 1.0 Precautions Precautions/Isolations: Fall Prevention, Standard Precautions Referral Physician: Cathi Reason for Referral: Evaluation/Treatment Medical History Additional Medical History Past Medical History Surgeries: Adenoidectomy, Ear Surgery, Hysterectomy, Tonsillectomy Cardiac: Deep Vein Thrombosis Neurological: Neuropathy Reproductive: Yes Female Reproductive Disorders: Menstrual Problems Genitourinary: Renal Failure Gastrointestinal: Gastroesophageal Reflux, Pancreatitis, Ulcer Musculoskeletal: Arthritis, Rheumatoid Arthritis, Fractures Endocrine: Diabetes, Insulin dep HEENT: Tonsilitis Loss of Vision: Denies Hearing Impairment: Denies Psychosocial: Personality Disorder History of Blood Disorders: No Adverse Reaction to Blood High: No Reviewed History: Yes Social History Home: Single Level Current Living Status: Alone Entry Into Home: Stairs With Railing PT Steps Into Home: 3 Prior Prior Level of Function SCALE: Activities may be completed with or without assistive devices. 6-Vquyumlrsn-nflhged completes the activity by him/herself with no assistance from a helper. 5-Set-up or Clean-up Assistance-helper sets up or cleans up; patient completes activity. [place] assists only prior to or following the activity. 4-Supervision or Touching Assistance-helper provides verbal cues and/or touching/steadying and/or contact guard assistance as patient completes activity. Assistance may be provided throughout the activity or intermittently. 3-Partial/Moderate Assistance-helper does LESS THAN HALF the effort. [place] li fts, holds or supports trunk or limbs, but provides less than half the effort. 2-Substantial/Maximal Assistance-helper does MORE THAN HALF the effort. [place] lifts or holds trunk or limbs and provides more than half the effort. 7-Kucvtwuuy-rqffwn does ALL the effort. Patient does none of the effort to complete the activity. Or, the assistance of 2 or more helpers is required for the patient to complete the activity. If activity was not attempted, code reason: 7-Patient Refused. 9-Not Applicable-not attempted and the patient did not perform the activity before the current illness, exacerbation or injury. 10-Not Attempted due to Environmental Limitations-(lack of equipment, weather restraints, etc.). 88-Not Attempted due to Medical Conditions or Safety Concerns. Bed Mobility: 6 Transfers (B,C,W/C): 6 Gait: 6 Stairs: 6 Indoor Mobility (Ambulation): Independent Stairs: Independent Patient states she started using a rolling walker shortly before coming here. PT Evaluation-Current Subjective Patient in bed pre tx, agrees to PT, has severe back pain. Impulsive, trying to get out of bed with bedrail still up. Pt/Family Goals to be independent at home Objective Patient Orientation: Person, Place, Situation Attachments: [place] Catheter, IV O2 97% on room air, O2 is off ROM/Strength ROM Lower Extremities WNL Strength Lower Extremities 3/5 gross BLE Sensory Vision: Functional Hearing: Functional Sensation Right Lower Extremit: Impaired Sensation Left Lower Extremity: Impaired Transfers Roll Left to Right (QC): 6 Lying to Sitting/Side of Bed(Q: 6 Sit to Stand (QC): 3 Chair/Pso-us-Tcqaj Xfer(QC): 3 Min assist for sit to stand and transfer. Patient unsteady on feet, knees act like they are going to buckle but don't completely. Gait Distance: 3' Gait Assistive Device: FWW Comments/Gait Description Patient takes just a few steps to a recliner with min assist, uncoordinated steps, cues for safety Balance Sitting Static: Good Sitting Dynamic: Good Standing Static: Fair Standing Dynamic: Fair Treatment BLE seated exercises x20 (AP, LAQ) Assessment/Needs Patient has impaired mobility, strength, endurance. She is in recliner post tx with nurse call, phone, tray, all needs met. Patient instructed to call nurse if she needs to get back to bed and to not get up by herself. Rehab Potential: Fair PT Fdc Goals Fdc Goals PT Tank Wagon Driver Goals Time Frame: Jan 05, 2020 Roll Left & Right (QC): 6 Sit to Lying (QC): 6 Lying-Sitting on Side/Bed(QC): 6 Sit to Stand (QC): 4 Chair/Qyr-wb-Rskqd Xfer(QC): 4 Walk 10 feet (QC): 4 PT Plan Problem List Problem List: Activity Tolerance, Functional Strength, Safety, Balance, Gait, Transfer, Bed Mobility Treatment/Plan Treatment Plan: Continue Plan of Care Treatment Plan: Bed Mobility, Education, Functional Activity Timo, Functional Strength, Gait, Safety, Therapeutic Exercise, Transfers Treatment Duration: Jan 05, 2020 Frequency: 6 times per week Estimated Hrs Per Day: .25 hour per day Patient and/or Family Agrees t: Yes Safety Risks/Education Patient Education: Gait Training, Transfer Techniques, Correct Positioning, Safety Issues Teaching Recipient: Patient Teaching Methods: Demonstration, Discussion Response to Teaching: Reinforcement Needed Discharge Recommendations Plan Patient will perform bed mobility and transfer training, balance and endurance training, functional strengthening, stair training, gait training, and education, to improve functional mobility and independence at home. Therapy Discharge Recommendati: Home & Family Time/GCodes Time In: 904 Time Out: 924 Total Billed Treatment Time: 20 Total Billed Treatment 1 visit CHICHI Gant' EDUARDA LOPEZ PT Dec 29, 2019 09:56
--- NOTE | 2019-12-29 14:53 | Occupational Therapy Eval ---
OT Evaluation-General/PLF Medical Diagnosis Admission Date Dec 27, 2019 at 04:00 Medical Diagnosis: DKA Onset Date: Dec 27, 2019 Therapy Diagnosis Therapy Diagnosis: impaired ADLs/functional mobility Height/Weight Height (Feet): 5 Height (Inches): 5.00 Weight (Pounds): 151 Weight (Ounces): 1.0 Precautions Precautions/Isolations: Fall Prevention, Standard Precautions Safety Interventions: Notify Family, Place Restraint, Reorient-Attempt, Reorient-PRN Referral Physician: Cathi Referral Reason: Evaluation/Treatment Medical History Pertinent Medical History: DM Additional Medical History adenoidectomy, renal stents, renal failure, asthma, pneumonia, DVT, RA, fractures, IDDM, personality disorder, CKD, methamphetamine, ear surgery, hysterectomy, tonsillectomy, gastroesophageal reflux, DM Current History Per H&P: "Pt is a 54yoCF witha PMH of IDDMII, methamphetamine use, CKD who presented to the ER due to altered mental status. She is currently treated and sedated and unable to provide any review of systems. Her mother is at bedside but is limited use in history other than that she is a type I diabetic and had been very thirsty lately.. All history is obtained from review of records. Reportedly she was found by her son on the ground unresponsive and moaning. EMS was called and she was found to have a temperature of 93F. She was also found to have a blood sugar reading of high per their device. On arrival to the ER she was found to be in severe DKA with blood sugars are greater than 1000 and a bicarbonate of less than 5. She was found to be 7.05. She was intubated in the ER and admitted to the ICU for DKA protocol." Pt was extubated on 12/28/2019 Reviewed History: Yes Social History Home: Single Level Current Living Status: Alone Entry Into Home: Stairs With Railing Steps Into Home: 3 ADL-Prior Level of Function SCALE: Activities may be completed with or without assistive devices. 0-Eygamyntbv-iuulyjc completes the activity by him/herself with no assistance from a helper. 5-Set-up or Clean-up Assistance-helper sets up or cleans up; patient completes activity. [place] assists only prior to or following the activity. 4-Supervision or Touching Assistance-helper provides verbal cues and/or touching/steadying and/or contact guard assistance as patient completes activity. Assistance may be provided throughout the activity or intermittently. 3-Partial/Moderate Assistance-helper does LESS THAN HALF the effort. [place] lifts, holds or supports trunk or limbs, but provides less than half the effort. 2-Substantial/Maximal Assistance-helper does MORE THAN HALF the effort. [place] lifts or holds trunk or limbs and provides more than half the effort. 1-Upbzewknb-omrfbt does ALL the effort. Patient does none of the effort to complete the activity. Or, the assistance of 2 or more helpers is required for the patient to complete the activity. If activity was not attempted, code reason: 7-Patient Refused. 9-Not Applicable-not attempted and the patient did not perform the activity before the current illness, exacerbation or injury. 10-Not Attempted due to Environmental Limitations-(lack of equipment, weather restraints, etc.). 88-Not Attempted due to Medical Conditions or Safety Concerns. ADL PLOF Comments Pt reports living alone. She has assistance with self care, cooking, and cleaning approximately 6 days a week, 5 hours each day. When asked approximately how much assistance she needed with tasks, pt reports "50%". She uses a roller walker for functional mobility. Self Care: Needed Some Help Functional Cognition: Independent DME/Equipment: Tub/Shower OT Current Status Subjective Pt laying in bed sleeping, easily awoken. She was agreeable to OT evaluation and tx at this time. Pt reports having pain in her stomach area, but she has had it prior to hospitalization. She did not verbalize pain rating. Mental Status/Objective Patient Orientation: Person, Place, Time, Situation Attachments: [place] Catheter, IV, Telemetry Current Glasses/Contacts: Yes Hearing Aids: No Dentures/Partials: No Hand Dominance: Right Upper Extremity ROM WFL, BUE shoulder flexion to approximately 160 degrees. Upper Extremity Coordination WFL Upper Extremity Sensation she reports tingling and numbness in her arms and hands, stating she had this prior to hospitalization as well. She also reports having tingling/numbness from her feet up to her knees on occasion. ADL-Treatment Eating (QC): 6 (Pt able to bring cup to mouth and drink without issues.) Other Treatments Pt laying in bed at start of session. She provided information about PLOF and home set up. Her mother was present during evaluation/tx. OT educated pt and mother on purpose and benefits of OT and POC while she is admitted to the hospital. Pt was slightly impulsive throughout session, kicking her blankets off, then pulling them back on. She wanted to sit up in bed, but then requested to lay HOB down. Post OT session, pt laying in bed with call light in reach and all needs met, her mother present. Education OT Patient Education: Correct positioning, Energy conservation, Modified ADL techniques, Progress toward Goal/Update tx plan, Purpose of tx/functional activities Teaching Recipient: Patient Teaching Methods: Discussion Response to Teaching: Verbalize Understanding OT Film Crew Member Goals Half-Way Goals Time Frame: Jan 07, 2020 Oral Hygiene (QC): 6 Toileting Hygiene (QC): 6 Shower/Bathe Self (QC): 3 Upper Body Dressing (QC): 4 Lower Body Dressing (QC): 3 On/Off Footwear (QC): 4 Additional Goals: 1-Demonstrate ADL Tasks, 2-Verbalize Understanding, 3- ImproveStrength/Timo 1=Demonstrate adherence to instructed precautions during ADL tasks. 2=Patient will verbalize/demonstrate understanding of assistive devices/modifications for ADL. 3=Patient will improve strength/tolerance for activity to enable patient to perform ADL's. OT Education/Plan Problem List/Assessment Assessment: Decreased Activ Tolerance, Decreased UE Strength, Impaired Bed Mobility, Impaired Funct Balance, Impaired I ADL's, Impaired Self-Care Skills Discharge Recommendations Plan/Recommendations: Continue POC Treatment Plan/Plan of Care Treatment,Training & Education: Yes Patient would benefit from OT for education, treatment and training to promote independence in ADL's, mobility, safety and/or upper extremity function for ADL's. Plan of Care: ADL Retraining, Functional Mobility, UE Funct Exercise/Act Treatment Duration: Jan 07, 2020 Frequency: 5 times per week Estimated Hrs Per Day: .25 hour per day Agreement: Yes Rehab Potential: Fair Time/GCodes Start Time: 13:35 Stop Time: 13:47 Total Time Billed (hr/min): 12 Billed Treatment Time 1, JAIRO MIRAMONETS OT Dec 29, 2019 14:53
--- NOTE | 2019-12-29 15:28 | NUR ---
CM/SS: Visited with pt as to her plan for discharge Plan: Pt will return home with Home Community Based [facility] hours in place with workers helping pt in the home. Summary: Pt reports that she is admitted to the hospital from home. She reports that she has help in the home with [employer] providing hours - she has 30 hours per week and that she is needing a worker. She is encouraged to have this set up prior to her discharge, and this worker visits with her about agency care. She is opposed to this. She does report that her worker through [employer] is Cameron Mayes. This worker will follow up with Kushal. Phone Call to Kushal Mayes [phone]. He is aware pt is in the hospital and has talked with her as to her hours of in home care. He will follow up with pt as to her being open to having a worker through an agency instead of being self direct. This worker will follow up as to plan for discharge.
--- NOTE | 2019-12-29 15:36 | Progress Note - Hospitalist ---
Subjective HPI/CC On Admission Date Seen by Provider: Dec 29, 2019 Time Seen by Provider: 07:50 Pt is a 54yoCF witha PMH of IDDMII, methamphetamine use, CKD who presented to the ER due to altered mental status. She is currently treated and sedated and unable to provide any review of systems. Her mother is at bedside but is limited use in history other than that she is a type I diabetic and had been very thirsty lately.. All history is obtained from review of records. Reportedly she was found by her son on the ground unresponsive and moaning. EMS was called and she was found to have a temperature of 93F. She was also found to have a blood sugar reading of high per their device. On arrival to the ER she was found to be in severe DKA with blood sugars are greater than 1000 and a bicarbonate of less than 5. She was found to be 7.05. She was intubated in the ER and admitted to the ICU for DKA protocol. Subjective/Events-last exam Pt reports feeling much better. Has some swelling in her hands. Otherwise no complaints. Focused Exam Lactate Level 12/27/19 04:23: Lactic Acid Level 2.72*H 12/27/19 07:25: Lactic Acid Level 2.33*H 12/27/19 11:03: Lactic Acid Level 1.78 Objective Exam Vital Signs Vital Signs Date Time Temp Pulse Resp B/P (MAP) Pulse Ox O2 Delivery O2 Flow Rate FiO2 12/29/19 12:43 119 12/29/19 12:00 29 153/79 (103) 99 Nasal Cannula 2.00 12/29/19 03:34 36.0 12/28/19 06:49 21 Capillary Refill : Less Than 3 Seconds General Appearance: No Apparent Distress, Chronically ill Cardiovascular: Regular Rate, Rhythm, No Murmur Gastrointestinal: Normal Bowel Sounds, Soft Neurologic/Psychiatric: Alert, Oriented x3 Results/Procedures Lab Laboratory Tests 12/29/19 02:21 Patient resulted labs reviewed. 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 consulted Critical Care Critically Ill Patient Diagnosis/Problems Diagnosis/Problems (1) Acute respiratory failure requiring reintubation Status: Acute (2) Methamphetamine abuse Status: Acute (3) Diabetic ketoacidosis Status: Acute Qualifiers: Diabetes mellitus type: type 2 Diabetes mellitus complication detail: with coma Qualified Codes: E11.11 - Type 2 diabetes mellitus with ketoacidosis with coma (4) Acute kidney injury superimposed on chronic kidney disease Status: Acute (5) High anion gap metabolic acidosis Status: Acute (6) Leukocytosis Status: Acute (7) Lactic acidosis Status: Acute (8) Dehydration Status: Acute (9) Hypotension Status: Acute (10) Altered mental status Status: Acute Clinical Quality Measures DVT/VTE Risk/Contraindication: Risk Factor Score Per Nursin RFS Level Per Nursing on Admit: 4+=Very High TRUDI SERRANO MD Dec 29, 2019 15:36
--- NOTE | 2019-12-29 16:01 | NUR ---
PT TRANSPORTED TO ROOM 418 VIA W/C AFTER GIVING REPORT TO JOB JARRETT. ALL PERSONAL BELONGINGS TO PATIENT ROOM. LANTUS GIVEN TO MOTHER FROM [place] TO TAKE HOME. MOTHER LEFT HOSPITAL WITH LANTUS. PATIENT IS AWARE MOTHER IS TAKING LANTUS. PT SITTING UP IN RECLINER IN NAD UPON TRANSFER. TELE APPLIED.
--- NOTE | 2019-12-29 16:05 | NUR ---
this Rn took over patient care at this time. patient alert and orientated. neck dressing clean and intact. no other needs at this time
--- NOTE | 2019-12-29 20:55 | NUR ---
PT BLOOD SUGAR 347, AND THE ONE BEFORE WAS 343. DR MARVA DURHAM CALLED REGARDING PT D5 1/2 NS THAT'S RUNNING AT 50ML/HR. DR ORDERED TO DC FLUIDS IF PATIENT INTAKE IS GOOD. PT TOLERATING PO FLUIDS AT THIS TIME, 800ML FLUID INTAKE RECORDED.
[2019-12-29] MEDS: MONTELUKAST CHEW 5 MG (SINGULAIR) TAB PO SCH (21:00)
[2019-12-30] VITALS (7 sets, daily range): BP systolic 124–185; BP diastolic 66–93
[2019-12-30] MEDS: RT-ALBUTEROL/IPRATROPIUM 3 ML (DUONEB) VIAL INH SCH ×6 (04:19→22:00)
[2019-12-30] MEDS: inSUlin ASPART (NovoLOG) 1 UNIT/0.01 ML (CHARGE PER UNIT) SC SCH ×4 (06:00→20:59)
[2019-12-30 06:04] LABS: BASOPHILS % (AUTO) 0 % (0-10); EOSINOPHILS # (AUTO) 0.2 10^3/uL (0.0-0.3); EOSINOPHILS % (AUTO) 1 % (0-10); HEMATOCRIT 33 % (35-52); HEMOGLOBIN 10.8 G/DL (11.5-16.0); LYMPHOCYTES # (AUTO) 2.4 X 10^3 (1.0-4.0); LYMPHOCYTES % (AUTO) 19 % (12-44); MEAN CORPUSCULAR HEMOGLOBIN 32 PG (25-34); MEAN CORPUSCULAR HGB CONC 33 G/DL (32-36); MEAN CORPUSCULAR VOLUME 96 FL (80-99); MEAN PLATELET VOLUME 9.9 FL (7.4-10.4); MONOCYTES # (AUTO) 0.5 X 10^3 (0.0-1.0); MONOCYTES % (AUTO) 4 % (0-12); NEUTROPHILS # (AUTO) 9.6 X 10^3 (1.8-7.8); NEUTROPHILS % (AUTO) 76 % (42-75); PLATELET COUNT 164 10^3/uL (130-400); RED CELL DISTRIBUTION WIDTH 14.8 % (10.0-14.5); WHITE BLOOD COUNT 12.7 10^3/uL (4.3-11.0)
--- NOTE | 2019-12-30 06:20 | NUR ---
PT ACCUCHECKS SHOWED BLOOD SUGAR 53, DR DURHAM NOTIFIED. NO NEW ORDERS AT THIS TIME. APPLE JUICE, JAE CRACKERS AND PEANUT BUTTER GIVEN TO PATIENT
[2019-12-30 06:21] LABS: CREATININE SERUM 1.28 MG/DL (0.60-1.30); MAGNESIUM 1.5 MG/DL (1.6-2.4); PHOSPHORUS 2.1 MG/DL (2.3-4.7); POTASSIUM 3.4 MMOL/L (3.6-5.0)
--- NOTE | 2019-12-30 06:30 | NUR ---
blood sugar rechecked, 119, will continue to monitor
[2019-12-30] MEDS ORDERED: KCL 20 MEQ TAB (K-DUR) PO NR (07:00)
[2019-12-30] MEDS: KCL 20 MEQ TAB (K-DUR) PO SCH (07:23)
[2019-12-30] MEDS: MAGNESIUM 1 GM/100 ML IVPB 100 ML IV SCH ×3 (07:23→08:09)
[2019-12-30] MEDS: POTASSIUM CL 10MEQ/50ML IVPB 50 ML IV SCH (07:24)
[2019-12-30] MEDS: AUGMENTIN 500 MG TAB (AMOXICILLIN/CLAVULANATE) PO SCH ×2 (07:39→16:26)
--- NOTE | 2019-12-30 08:04 | Diagnostic Imaging Report ---
INDICATION: Diabetic ketoacidosis, respiratory failure, methamphetamine, shortness of breath. COMPARISON STUDY: Chest radiograph from yesterday. FINDINGS: Portable upright view of the chest demonstrates interval removal of central venous catheter. Heart size is normal. Bibasilar infiltrates have slightly increased. Vascularity has improved. IMPRESSION: Mild bibasilar infiltrates are slightly worsened. Pulmonary congestion has nearly resolved. Dictated by: Dictated on workstation # [id number]
[2019-12-30] MEDS: PANTOPRAZOLE 40 MG (PROTONIX) VIAL IV SCH ×2 (08:09→20:59)
[2019-12-30] MEDS: ENOXAPARIN 40 MG/0.4 ML (LOVENOX) SYR SC SCH (08:09)
[2019-12-30] MEDS: DICLOFENAC 1% GEL 100 GM (VOLTAREN) TUBE TOP SCH ×4 (09:01→21:00)
--- NOTE | 2019-12-30 10:41 | Occupational Ther Daily Note ---
OT Current Status-Daily Note Subjective Pt laying in bed with HOB elevated. She agreed to OT tx this AM, she did not report any pain during session. Mental Status/Objective Attachments: Telemetry ADL-Treatment Therapy Code Descriptions/Definitions Functional Routt Measure: 0=Not Assessed/NA 4=Minimal Assistance 1=Total Assistance 5=Supervision or Setup 2=Maximal Assistance 6=Modified Routt 3=Moderate Assistance 7=Complete IndependenceSCALE: Activities may be completed with or without assistive devices. 2-Neznoexavt-cjzcswt completes the activity by him/herself with no assistance from a helper. 5-Set-up or Clean-up Assistance-helper sets up or cleans up; patient completes activity. Casper assists only prior to or following the activity. 4-Supervision or Touching Assistance-helper provides verbal cues and/or touchin g/steadying and/or contact guard assistance as patient completes activity. Assistance may be provided throughout the activity or intermittently. 3-Partial/Moderate Assistance-helper does LESS THAN HALF the effort. Casper lifts, holds or supports trunk or limbs, but provides less than half the effort. 2-Substantial/Maximal Assistance-helper does MORE THAN HALF the effort. Casper lifts or holds trunk or limbs and provides more than half the effort. 8-Xvzgprzyy-cyycbb does ALL the effort. Patient does none of the effort to complete the activity. Or, the assistance of 2 or more helpers is required for the patient to complete the activity. If activity was not attempted, code reason: 7-Patient Refused. 9-Not Applicable-not attempted and the patient did not perform the activity before the current illness, exacerbation or injury. 10-Not Attempted due to Environmental Limitations-(lack of equipment, weather restraints, etc.). 88-Not Attempted due to Medical Conditions or Safety Concerns. Eating (QC): 6 (Pt able to open butter container, and use spoon to put butter in her oatmeal. Pt had no difficulty bringing food to her mouth.) Upper Body Dressing (QC): 3 (Pt required min A with doffing gown due to BM on gown. Pt able to thread sleeves into gown and required assist tying gown.) Toileting Hygiene (QC): 2 (Pt required max A to clean after BM accident. She was able to assist with cleansing part of periarea, requiring total assist for buttocks and back of legs.) Other Treatment Pt laying with HOB elevated, she prepared her oatmeal asking for it to be heated up. OT microwaved oatmeal for pt and upon returning to pt's room, pt was crying. When asked what was wrong, pt reported she had a BM accident, and she stuck her heel into it. OT assisted pt with cleaning up, and changing her gown. Pt stood at FWW during cleansing with SBA. She then transferred to recliner using FWW with CGA. Pt began eating her oatmeal as OT cleaned up from ADL tx. OT educated pt on using the call light if she needs assistance, pt verbalized understanding. Post OT session, pt seated upright in recliner, call light in reach and all needs met. Education OT Patient Education: Correct positioning, Energy conservation, Modified ADL techniques, Progress toward Goal/Update tx plan, Purpose of tx/functional activities, Transfer techniques Teaching Recipient: Patient Teaching Methods: Discussion Response to Teaching: Verbalize Understanding OT Alf Goals Barbering Instructor Goals Time Frame: Jan 07, 2020 Oral Hygiene (QC): 6 Toileting Hygiene (QC): 6 Shower/Bathe Self (QC): 3 Upper Body Dressing (QC): 4 Lower Body Dressing (QC): 3 On/Off Footwear (QC): 4 Additional Goals: 1-Demonstrate ADL Tasks, 2-Verbalize Understanding, 3- ImproveStrength/Timo 1=Demonstrate adherence to instructed precautions during ADL tasks. 2=Patient will verbalize/demonstrate understanding of assistive devices/modifications for ADL. 3=Patient will improve strength/tolerance for activity to enable patient to perform ADL's. OT Education/Plan Problem List/Assessment Assessment: Decreased Activ Tolerance, Decreased UE Strength, Impaired I ADL's, Impaired Self-Care Skills Discharge Recommendations Plan/Recommendations: Continue POC Treatment Plan/Plan of Care Patient would benefit from OT for education, treatment and training to promote independence in ADL's, mobility, safety and/or upper extremity function for ADL's. Plan of Care: ADL Retraining, Functional Mobility, UE Funct Exercise/Act Treatment Duration: Jan 07, 2020 Frequency: 5 times per week Estimated Hrs Per Day: .25 hour per day Agreement: Yes Rehab Potential: Fair Time/GCodes Start Time: 09:49 Stop Time: 10:13 Total Time Billed (hr/min): 24 Billed Treatment Time 1, ADL 2 JAIRO COLEY OT Dec 30, 2019 10:41
--- NOTE | 2019-12-30 11:33 | Physical Therapy Daily Note ---
PT Daily Note-Current Subjective Patient is sitting up in recliner on her phone and agrees to PT. Pain Numeric Pain Scale: 0-No Pain Location: No Pain Reported Mental Status Patient Orientation: Person, Time, Situation Transfers SCALE: Activities may be completed with or without assistive devices. 0-Jgnuzmulul-fledsie completes the activity by him/herself with no assistance from a helper. 5-Set-up or Clean-up Assistance-helper sets up or cleans up; patient completes activity. [place] assists only prior to or following the activity. 4-Supervision or Touching Assistance-helper provides verbal cues and/or touching/steadying and/or contact guard assistance as patient completes activity. Assistance may be provided throughout the activity or intermittently. 3-Partial/Moderate Assistance-helper does LESS THAN HALF the effort. [place] lifts, holds or supports trunk or limbs, but provides less than half the effort. 2-Substantial/Maximal Assistance-helper does MORE THAN HALF the effort. [place] lifts or holds trunk or limbs and provides more than half the effort. 5-Yrzffonua-omsngm does ALL the effort. Patient does none of the effort to complete the activity. Or, the assistance of 2 or more helpers is required for the patient to complete the activity. If activity was not attempted, code reason: 7-Patient Refused. 9-Not Applicable-not attempted and the patient did not perform the activity before the current illness, exacerbation or injury. 10-Not Attempted due to Environmental Limitations-(lack of equipment, weather restraints, etc.). 88-Not Attempted due to Medical Conditions or Safety Concerns. Sit to Stand (QC): 5 Gait Training Does the Patient Walk?: Yes Distance: 250' Walk 10 feet (QC): 4 Walk 50 ft with 2 Turns(QC): 4 Walk 150 ft (QC): 4 Gait Assistive Device: FWW CGA for safety/slow, functional gait sequence Assessment Patient tolerated treatment well and remains up in recliner. PT to increase ac tivity as tolerated by patient. PT Prison Goals Explosion Welder Goals PT Prison Goals Time Frame: Jan 05, 2020 Roll Left & Right (QC): 6 Sit to Lying (QC): 6 Lying-Sitting on Side/Bed(QC): 6 Sit to Stand (QC): 4 Chair/Ozp-qg-Cbiam Xfer(QC): 4 Walk 10 feet (QC): 4 PT Plan Treatment/Plan Treatment Plan: Continue Plan of Care Treatment Plan: Bed Mobility, Education, Functional Activity Timo, Functional Strength, Gait, Safety, Therapeutic Exercise, Transfers Treatment Duration: Jan 05, 2020 Frequency: 6 times per week Estimated Hrs Per Day: .25 hour per day Patient and/or Family Agrees t: Yes Time/GCodes Time In: 1030 Time Out: -1043 Total Billed Treatment Time: 13 Total Billed Treatment 1 visit GT 13 min SHANIKA SHEA PT Dec 30, 2019 11:32
--- NOTE | 2019-12-30 13:38 | Progress Note - Hospitalist ---
Subjective HPI/CC On Admission Date Seen by Provider: Dec 30, 2019 Time Seen by Provider: 13:34 Pt is a 54yoCF witha PMH of IDDMII, methamphetamine use, CKD who presented to the ER due to altered mental status. She is currently treated and sedated and unable to provide any review of systems. Her mother is at bedside but is limited use in history other than that she is a type I diabetic and had been very thirsty lately.. All history is obtained from review of records. Reportedly she was found by her son on the ground unresponsive and moaning. EMS was called and she was found to have a temperature of 93F. She was also found to have a blood sugar reading of high per their device. On arrival to the ER she was found to be in severe DKA with blood sugars are greater than 1000 and a bicarbonate of less than 5. She was found to be 7.05. She was intubated in the ER and admitted to the ICU for DKA protocol. Subjective/Events-last exam Pt reports feeling much better. Had some fecal incontinence this morning. Otherwise no concerns. Was able to walk with PT but now very tired. Objective Exam Vital Signs Vital Signs Date Time Temp Pulse Resp B/P (MAP) Pulse Ox O2 Delivery O2 Flow Rate FiO2 12/30/19 12:14 106 12/30/19 12:08 37.1 20 156/80 (105) 97 Room Air 12/30/19 09:00 2.00 100 Capillary Refill : Less Than 3 Seconds General Appearance: No Apparent Distress, Chronically ill Respiratory: Lungs Clear, No Respiratory Distress Cardiovascular: Regular Rate, Rhythm, No Murmur Neurologic/Psychiatric: Alert, Oriented x3 Results/Procedures Lab Laboratory Tests 12/30/19 05:48 Patient resulted labs reviewed. Imaging: Reviewed Imaging Report Assessment/Plan Assessment and Plan Assess & Plan/Chief Complaint DKA- resolved IDDMI Continue bolus insulin A1c 14.8, reports not taking her insulin as prescribed Was hypoglycemic overnight so Levemir decreased Hypovolemic shock- resolved LULY on CKD Good UOP Creatinine improved Acute Respiratory Failure Resolved Continue Augmentin LLE edema h/o of DVT USG negative for DVT Lasix as above Normocytic anemia- stable PPI Consult Surgery, appreciate recs Hgb stable Methamphetamine use Reviewed UDS- has been positive for meth multiple times since 2014 security services specialist consulted Patient reports no longer smoking but around it and that's why she thinks here UDS is positive Debility PT/OT Critical Care Critically Ill Patient Diagnosis/Problems Diagnosis/Problems (1) Acute respiratory failure requiring reintubation Status: Acute (2) Methamphetamine abuse Status: Acute (3) Diabetic ketoacidosis Status: Acute Qualifiers: Diabetes mellitus type: type 2 Diabetes mellitus complication detail: with coma Qualified Codes: E11.11 - Type 2 diabetes mellitus with ketoacidosis with coma (4) Acute kidney injury superimposed on chronic kidney disease Status: Acute (5) High anion gap metabolic acidosis Status: Acute (6) Leukocytosis Status: Acute (7) Lactic acidosis Status: Acute (8) Dehydration Status: Acute (9) Hypotension Status: Acute (10) Altered mental status Status: Acute Clinical Quality Measures DVT/VTE Risk/Contraindication: Risk Factor Score Per Nursin RFS Level Per Nursing on Admit: 4+=Very High TRUDI SERRANO MD Dec 30, 2019 13:38
--- NOTE | 2019-12-30 15:10 | NUR ---
Pastoral care visit.
--- NOTE | 2019-12-30 15:47 | NUR ---
IRF Evaluation Order received to evaluate patient for the ARU. Chart review complete and it appears patient is ambulating (250ft, FWW) and transferring with set-up. Additionally, patient is requiring partial/moderate assistance for UE dressing, as well as maximum assistance with toileting hygiene. Although the patient requires a great deal of assistance with tested ADLs, patient is nearly independent with ambulation and transfers; therefore, patient does not meet criterion: "Require active and ongoing intervention of multiple therapy disciplines (PT, OT, ABLE BODIED TANKERMAN), at least one of which must be PT or OT." CM/SS notified. Thank you for this referral.
--- NOTE | 2019-12-30 16:30 | NUR ---
CM/SS: This worker visited with pt as to plan for discharge Plan: Pt will return home with Home Community Based Services Hours through her [facility] Summary: Pt is encouraged to make contact with [employer] so that she can secure workers when she is released from hospital. She is also asked about her drug use. She does report using marijuana as well as meth in the past. Pt denied any meth use prior to coming to hospital. Did test positive for meth at time of admission. Caemron Hutchinson worker contacted [phone] contacted. He has provided this worker with the phone number of the delivered meals when discharged for a week as [phone] and the [facility] number for worker as well. This information is given to the pt so that she can make contact and have workers in place upon discharge. Cameron is aware it is likely pt will discharge on tomorrow from the hospital.
--- NOTE | 2019-12-30 19:41 | Progress Note - Surgery ---
Subjective Date Seen by a Provider: Dec 30, 2019 Time Seen by a Provider: 17:20 Subjective/Events-last exam Feeling better today. No abdominal pain. Hgb stable. Tolerating diet. No nausea or emesis. Denies fever sweats chills shortness of breath or chest pain. Objective Exam Vital Signs Date Time Temp Pulse Resp B/P (MAP) Pulse Ox O2 Delivery O2 Flow Rate FiO2 12/30/19 19:00 107 12/30/19 16:00 37.5 111 18 164/75 (104) 95 Room Air 12/30/19 12:14 106 12/30/19 12:08 37.1 102 20 156/80 (105) 97 Room Air 12/30/19 09:00 95 Room Air 2.00 100 12/30/19 07:41 37.8 112 16 124/66 (85) 95 Room Air 12/30/19 07:18 94 Room Air 12/30/19 07:00 110 12/30/19 04:45 37.1 111 22 136/66 (89) 94 Room Air 12/30/19 01:00 104 12/30/19 00:33 37.8 107 24 150/93 (112) 95 Room Air 12/29/19 20:55 Room Air 12/29/19 20:42 37.0 106 16 160/73 (102) 98 Room Air I & O 12/30/19 07:00 Intake Total 2100 ml Output Total 9500 ml Balance -7400 ml Capillary Refill : Less Than 3 Seconds General Appearance: No Apparent Distress, Chronically ill HEENT: PERRL/EOMI Neck: Normal Inspection, Non Tender Respiratory: Chest Non Tender, Lungs Clear, No Accessory Muscle Use, No Respiratory Distress Cardiovascular: Regular Rate, Rhythm, No Murmur Gastrointestinal: non tender, soft, no organomegaly Extremity: Non Tender Neurologic/Psychiatric: Alert, Oriented x3 Skin: Normal Color, Warm/Dry Lymphatic: No Adenopathy Results Lab Laboratory Tests 12/29/19 20:06: Glucometer 343H 12/30/19 05:32: Glucometer 53*L 12/30/19 05:48: White Blood Count 12.7H, Red Blood Count 3.39L, Hemoglobin 10.8L, Hematocrit 33L , Mean Corpuscular Volume 96, Mean Corpuscular Hemoglobin 32, Mean Corpuscular Hemoglobin Concent 33, Red Cell Distribution Width 14.8H, Platelet Count 164, Mean Platelet Volume 9.9, Neutrophils (%) (Auto) 76H, Lymphocytes (%) (Auto) 19, Monocytes (%) (Auto) 4, Eosinophils (%) (Auto) 1, Basophils (%) (Auto) 0, Neutrophils # (Auto) 9.6H, Lymphocytes # (Auto) 2.4, Monocytes # (Auto) 0.5, Eosinophils # (Auto) 0.2, Basophils # (Auto) 0.0, Sodium Level 138, Potassium [place] 3.4L, Chloride Level 104, Carbon Dioxide Level 24, Anion Gap 10, Blood Urea Nitrogen 20H, Creatinine 1.28, Estimat Glomerular Filtration Rate 43, BUN/Creatinine Ratio 16, Glucose Level 54*L, Calcium Level 8.0L, Phosphorus Level 2.1L, Magnesium Level 1.5L 12/30/19 06:43: Glucometer 119H 12/30/19 10:47: Glucometer 342H 12/30/19 16:19: Glucometer 389H Microbiology 12/27/19 Gram Stain - Final, Complete 12/27/19 Sputum Culture - Final, Complete Streptococcus pneumoniae YEAST Usual upper respiratory tushar 12/27/19 Blood Culture - Preliminary, Resulted No growth 12/27/19 Urine Culture - Final, Complete NO GROWTH Assessment/Plan Assessment/Plan Assessment/Plan DKA Acute respiratory failure, extubated Leukocytosis, Hypoglycemic episodes, managed by Primary care team Hypokalemia & Hypophosphatemia- replacement Acute renal failure, creatinine trending down, GIB, History of ulcers-PPI, hgb has been stable outpatient for endoscopic evaluation follow hgb and transfuse prbc as needed, Anemia, continue to monitor Hb stable no surgical intervention if continue to drop hgb would do egd, will sign off, please call if needed. Clinical Quality Measures DVT/VTE Risk/Contraindication: Risk Factor Score Per Nursin RFS Level Per Nursing on Admit: 4+=Very High ENRIQUETA GUERRERO DO Dec 30, 2019 19:41
[2019-12-30] MEDS: MONTELUKAST CHEW 5 MG (SINGULAIR) TAB PO SCH (20:58)
[2019-12-30] MEDS: hydrOXYzine (ATARAX) 10 MG TAB PO PRN (22:56)
[2019-12-31] MEDS: RT-ALBUTEROL/IPRATROPIUM 3 ML (DUONEB) VIAL INH PRN (02:03)
[2019-12-31 03:55] VITALS: BP 186/103
[2019-12-31] MEDS: AUGMENTIN 500 MG TAB (AMOXICILLIN/CLAVULANATE) PO SCH ×2 (06:18→15:49)
[2019-12-31] MEDS: inSUlin ASPART (NovoLOG) 1 UNIT/0.01 ML (CHARGE PER UNIT) SC SCH ×4 (06:19→22:36)
[2019-12-31] MEDS ORDERED: NITROGLYCERIN 2% OINT 1 GM UNIT DOSE PACKET TOP PRN (06:30)
[2019-12-31 06:34] LABS: BASOPHILS % (AUTO) 0 % (0-10); EOSINOPHILS # (AUTO) 0.3 10^3/uL (0.0-0.3); EOSINOPHILS % (AUTO) 3 % (0-10); HEMATOCRIT 31 % (35-52); LYMPHOCYTES # (AUTO) 2.4 X 10^3 (1.0-4.0); LYMPHOCYTES % (AUTO) 24 % (12-44); MEAN CORPUSCULAR HEMOGLOBIN 32 PG (25-34); MEAN CORPUSCULAR HGB CONC 33 G/DL (32-36); MEAN CORPUSCULAR VOLUME 97 FL (80-99); MONOCYTES # (AUTO) 0.4 X 10^3 (0.0-1.0); MONOCYTES % (AUTO) 4 % (0-12); NEUTROPHILS # (AUTO) 7.1 X 10^3 (1.8-7.8); NEUTROPHILS % (AUTO) 70 % (42-75); PLATELET COUNT 159 10^3/uL (130-400); RED CELL DISTRIBUTION WIDTH 14.4 % (10.0-14.5); WHITE BLOOD COUNT 10.2 10^3/uL (4.3-11.0)
[2019-12-31 06:59] LABS: CALCIUM 7.7 MG/DL (8.5-10.1); CREATININE SERUM 1.27 MG/DL (0.60-1.30); MAGNESIUM 1.5 MG/DL (1.6-2.4); PHOSPHORUS 1.9 MG/DL (2.3-4.7)
[2019-12-31] MEDS: KCL 20 MEQ TAB (K-DUR) PO SCH (07:00)
[2019-12-31] MEDS: MAGNESIUM 1 GM/100 ML IVPB 100 ML IV SCH ×3 (07:00→08:41)
[2019-12-31] MEDS: POTASSIUM CL 10MEQ/50ML IVPB 50 ML IV SCH (07:00)
[2019-12-31] MEDS: RT-ALBUTEROL/IPRATROPIUM 3 ML (DUONEB) VIAL INH SCH (07:32)
[2019-12-31 08:00] VITALS: BP 178/85
[2019-12-31] MEDS: PANTOPRAZOLE 40 MG (PROTONIX) TAB PO SCH ×2 (08:41→22:37)
[2019-12-31] MEDS: lisINopril 20 MG (PRINIVIL) TABLET PO SCH (08:41)
[2019-12-31] MEDS: ENOXAPARIN 40 MG/0.4 ML (LOVENOX) SYR SC SCH (08:41)
[2019-12-31] MEDS: DICLOFENAC 1% GEL 100 GM (VOLTAREN) TUBE TOP SCH ×4 (08:43→22:37)
--- NOTE | 2019-12-31 10:06 | Physical Therapy Progress Note ---
Therapy Progress Note PT to dismiss patient from services secondary to patient is up ad seth in hallway with FWW without difficulty. Patient reports she has ambulate x 5 during night and hopes to go home. Patient has attained all functional goals. 1 visit SHANIKA SHEA PT Dec 31, 2019 10:06
--- NOTE | 2019-12-31 10:15 | NUR ---
"RD ASSESSMENT PMHx: DVT; renal failure; pancreatitis; DM (type 1) PT INTERACTION: Pt was awake and pleasant during dietary consult for DM education. Pt states current appetite is pretty good. Note avg PO intake >75% x3d, per chart review. Pt states following a low-CHO diet at home, and has some difficulty chewing d/t poor teeth. Pt states some recent episodes of nausea, usually brought about when coughing. Pt states no recent issues with constipation/diarrhea at this time. Note last BM was 12/31 and pt not currently on bowel regimen per chart review. Pt states recent fluctuations of weight recently and that her UBW is between 127-132#. Note recent 18# wt gain x1mon, per chart review. ABNORMAL NUTRITION-RELATED LAB VALUES LOW: Ca 7.7; phos 1.9; Mg 1.5 HIGH: glu 311 Est. kcal needs: 4942-2726 kcal | 20-25 kcal/kg Est. Pro needs: 64-80 g Pro | 0.8-1.0 g Pro/kg PES STATEMENT: Food- and nutrition-related knowledge deficit (NB-1.1) related to unwilling/disinterested in learning/applying information as evidenced by pt interview | No prior knowledge of need for food- and nutrition-related recommendations INTERVENTION: Continue with current diet order of CHO 60g/m 1snack diet. Provided and discussed handout on CHO counting. Provided examples of serving sizes and discussed fiber's role in glucose control. Discussed appropriate snack ideas and smartphone applications in CHO counting. Pt verbalized understanding of information and appeared confident to apply new information upon discharge. Provided contact information should pt have questions upon discharge. Will continue to follow and reassess as pt needs and status change. MONITOR/EVALUATE: PO Intake; Plan of Care; Hydration Status; Weight Status; Lab Values Jerzy Barbosa, MS, RD, LD"
--- NOTE | 2019-12-31 10:44 | NUR ---
CM/SS: Visited with pt as to plan for discharge Plan: Pt will discharge to home with Home Community Based Service hours through [facility] in place. Summary: Pt reports doing pretty good with her walking. Pt is reminded to call about her [employer] workers as to her care hours, and Call about her delivered meals for a week post hospital. Pt has the information to do so, she reports she will do so. Pt is given paper that she can take notes if needed. Pt reports that her daughter can pick her up and she will not need to use [employer] transportation.
[2019-12-31 12:00] VITALS: BP 183/82
[2019-12-31 16:00] VITALS: BP 147/71
--- NOTE | 2019-12-31 16:23 | Progress Note - Hospitalist ---
Subjective HPI/CC On Admission Date Seen by Provider: Dec 31, 2019 Time Seen by Provider: 16:20 Pt is a 54yoCF witha PMH of IDDMII, methamphetamine use, CKD who presented to the ER due to altered mental status. She is currently treated and sedated and unable to provide any review of systems. Her mother is at bedside but is limited use in history other than that she is a type I diabetic and had been very thirsty lately.. All history is obtained from review of records. Reportedly she was found by her son on the ground unresponsive and moaning. EMS was called and she was found to have a temperature of 93F. She was also found to have a blood sugar reading of high per their device. On arrival to the ER she was found to be in severe DKA with blood sugars are greater than 1000 and a bicarbonate of less than 5. She was found to be 7.05. She was intubated in the ER and admitted to the ICU for DKA protocol. Subjective/Events-last exam Pt reports feeling exhausted. Not ready for discharge. Feels blood sugars aren't yet controlled well enough. Objective Exam Vital Signs Vital Signs Date Time Temp Pulse Resp B/P (MAP) Pulse Ox O2 Delivery O2 Flow Rate FiO2 12/31/19 12:43 117 12/31/19 12:00 37.4 20 183/82 (115) 97 Room Air 12/30/19 09:00 2.00 100 Capillary Refill : Less Than 3 Seconds General Appearance: No Apparent Distress, Chronically ill Respiratory: No Accessory Muscle Use, No Respiratory Distress Neurologic/Psychiatric: Alert, Oriented x3, Normal Mood/Affect Results/Procedures Lab Laboratory Tests 12/31/19 06:28 Patient resulted labs reviewed. Imaging: Reviewed Imaging Report Assessment/Plan Assessment and Plan Assess & Plan/Chief Complaint DKA- resolved IDDMI Continue bolus insulin A1c 14.8, reports not taking her insulin as prescribed Now blood sugars running high Will increase Levemir to 12 units QHS and monitor Hypovolemic shock- resolved LULY on CKD Good UOP Creatinine improved Acute Respiratory Failure Resolved Continue Augmentin LLE edema- resolved h/o of DVT USG negative for DVT Normocytic anemia- stable PPI Consult Surgery, appreciate recs Hgb stable Methamphetamine use Reviewed UDS- has been positive for meth multiple times since 2014 human services case manager consulted Patient reports no longer smoking but around it and that's why she thinks here UDS is positive Debility PT/OT Dispo: Plan for discharge tomorrow if continues to improve. She has called her workers and set them up and also set up meal delivery. Critical Care Critically Ill Patient Diagnosis/Problems Diagnosis/Problems (1) Acute respiratory failure requiring reintubation Status: Acute (2) Methamphetamine abuse Status: Acute (3) Diabetic ketoacidosis Status: Acute Qualifiers: Diabetes mellitus type: type 2 Diabetes mellitus complication detail: with coma Qualified Codes: E11.11 - Type 2 diabetes mellitus with ketoacidosis with coma (4) Acute kidney injury superimposed on chronic kidney disease Status: Acute (5) High anion gap metabolic acidosis Status: Acute (6) Leukocytosis Status: Acute (7) Lactic acidosis Status: Acute (8) Dehydration Status: Acute (9) Hypotension Status: Acute (10) Altered mental status Status: Acute Clinical Quality Measures DVT/VTE Risk/Contraindication: Risk Factor Score Per Nursin RFS Level Per Nursing on Admit: 4+=Very High TRUDI SERRANO MD Dec 31, 2019 16:23
[2019-12-31 20:00] VITALS: BP 132/63
[2019-12-31] MEDS ORDERED: MELATONIN 3 MG TABLET PO SCH (21:00)
[2019-12-31] MEDS: MONTELUKAST CHEW 5 MG (SINGULAIR) TAB PO SCH (22:37)
[2020-01-01 00:05] VITALS: BP 175/72
[2020-01-01 04:00] VITALS: BP 142/77
[2020-01-01 05:41] LABS: BASOPHILS % (AUTO) 0 % (0-10); EOSINOPHILS # (AUTO) 0.2 10^3/uL (0.0-0.3); EOSINOPHILS % (AUTO) 3 % (0-10); HEMATOCRIT 29 % (35-52); HEMOGLOBIN 9.5 G/DL (11.5-16.0); LYMPHOCYTES # (AUTO) 2.9 X 10^3 (1.0-4.0); LYMPHOCYTES % (AUTO) 33 % (12-44); MEAN CORPUSCULAR HEMOGLOBIN 32 PG (25-34); MEAN CORPUSCULAR HGB CONC 32 G/DL (32-36); MEAN CORPUSCULAR VOLUME 98 FL (80-99); MEAN PLATELET VOLUME 10.2 FL (7.4-10.4); MONOCYTES # (AUTO) 0.6 X 10^3 (0.0-1.0); MONOCYTES % (AUTO) 7 % (0-12); NEUTROPHILS # (AUTO) 5.1 X 10^3 (1.8-7.8); NEUTROPHILS % (AUTO) 58 % (42-75); PLATELET COUNT 220 10^3/uL (130-400); WHITE BLOOD COUNT 8.8 10^3/uL (4.3-11.0)
[2020-01-01 06:06] LABS: CALCIUM 7.8 MG/DL (8.5-10.1); CREATININE SERUM 1.22 MG/DL (0.60-1.30); MAGNESIUM 1.7 MG/DL (1.6-2.4); PHOSPHORUS 2.2 MG/DL (2.3-4.7); POTASSIUM 3.8 MMOL/L (3.6-5.0)
[2020-01-01] MEDS: POTASSIUM CL 10MEQ/50ML IVPB 50 ML IV SCH (06:33)
[2020-01-01] MEDS: KCL 20 MEQ TAB (K-DUR) PO SCH (06:34)
[2020-01-01] MEDS: AUGMENTIN 500 MG TAB (AMOXICILLIN/CLAVULANATE) PO SCH (06:50)
--- NOTE | 2020-01-01 06:56 | Occ Therapy Progress Note ---
Therapy Progress Note Late Entry for 12/31/2019-Discharge patient from OT services secondary to patient is up ad seth and completing functional goals. ELLI OROZCO Jan 01, 2020 06:56
[2020-01-01] MEDS: MAGNESIUM 1 GM/100 ML IVPB 100 ML IV SCH (06:59)
[2020-01-01 08:00] VITALS: BP 127/76
[2020-01-01] MEDS: ENOXAPARIN 40 MG/0.4 ML (LOVENOX) SYR SC SCH (08:24)
[2020-01-01] MEDS: inSUlin ASPART (NovoLOG) 1 UNIT/0.01 ML (CHARGE PER UNIT) SC SCH ×2 (08:25→11:35)
[2020-01-01] MEDS: lisINopril 20 MG (PRINIVIL) TABLET PO SCH (09:34)
[2020-01-01] MEDS: PANTOPRAZOLE 40 MG (PROTONIX) TAB PO SCH (09:34)
[2020-01-01] MEDS: DICLOFENAC 1% GEL 100 GM (VOLTAREN) TUBE TOP SCH ×2 (09:34→12:50)
[2020-01-01] MEDS ORDERED: INSU100V5 SQ (10:08)
[2020-01-01] MEDS ORDERED: AMOX1TAB11 PO (10:08)
[2020-01-01] MEDS ORDERED: LISI-552 PO (10:08)
--- NOTE | 2020-01-01 10:17 | Discharge Inst-Simple/Standard ---
Discharge Inst-Standard Patient Instructions/Follow Up Plan of Care/Instructions/FU: Please continue to take your medications as written. Please follow up with your primary care doctor in the next week. Activity as Tolerated: Yes Discharge Diet: ADA Diet Return to The Hospital For: Confusion, abdominal pain, nausea, vomiting, blood sugars greater than 400 consistently, if you feel you are getting worse Planned Outpatient Orders/Ref. Pneu Vac Indicated: Yes TRUDI SERRANO MD Jan 01, 2020 10:13
--- NOTE | 2020-01-01 10:19 | Discharge Summary ---
Diagnosis/Chief Complaint Date of Admission Dec 27, 2019 at 04:00 Date of Discharge Discharge Date: Dec 31, 2019 Admission Diagnosis DKA Primary Care No,Local Physician Discharge Diagnosis (1) Acute respiratory failure requiring reintubation Status: Acute (2) Methamphetamine abuse Status: Acute (3) Diabetic ketoacidosis Status: Acute (4) Acute kidney injury superimposed on chronic kidney disease Status: Acute (5) High anion gap metabolic acidosis Status: Acute (6) Leukocytosis Status: Acute (7) Lactic acidosis Status: Acute (8) Dehydration Status: Acute (9) Hypotension Status: Acute (10) Altered mental status Status: Acute Discharge Summary Discharge Physical Exam Allergies: Coded Allergies: Sulfa (Sulfonamide Antibiotics) (Unverified Allergy, Unknown, 05/11/15) codeine (Verified Allergy, Unknown, TAKES ULTRAM AT HOME, 11/18/08) ketorolac (Verified Allergy, Unknown, 10/05/08) tramadol (Verified Allergy, Unknown, 11/02/11) Vitals & I&Os Vital Signs Date Time Temp Pulse Resp B/P (MAP) Pulse Ox O2 Delivery O2 Flow Rate FiO2 01/01/20 09:02 97 Room Air 01/01/20 08:00 36.3 110 20 127/76 (93) 12/30/19 09:00 2.00 100 Hospital Course Labs (last 24 hrs) Laboratory Tests 12/31/19 11:16: Glucometer 363H 12/31/19 15:39: Glucometer 380H 12/31/19 20:29: Glucometer 480*H 01/01/20 03:44: Glucometer 302H 01/01/20 05:16: Sodium Level 137, Potassium Level 3.8, Chloride Level 107, Carbon Dioxide Level 21, Anion Gap 9, Blood Urea Nitrogen 20H, Creatinine 1.22, Estimat Glomerular Filtration Rate 46, BUN/Creatinine Ratio 16, Glucose Level 236H, Calcium Level 7.8L, Phosphorus Level 2.2L, Magnesium Level 1.7 01/01/20 05:18: White Blood Count 8.8, Red Blood Count 2.99L, Hemoglobin 9.5L, Hematocrit 29L, Mean Corpuscular Volume 98, Mean Corpuscular Hemoglobin 32, Mean Corpuscular Hemoglobin Concent 32, Red Cell Distribution Width 14.0, Platelet Count 220, Mean Platelet Volume 10.2, Neutrophils (%) (Auto) 58, Lymphocytes (%) (Auto) 33, Monocytes (%) (Auto) 7, Eosinophils (%) (Auto) 3, Basophils (%) (Auto) 0, Neutrophils # (Auto) 5.1, Lymphocytes # (Auto) 2.9, Monocytes # (Auto) 0.6, Eosinophils # (Auto) 0.2, Basophils # (Auto) 0.0 01/01/20 05:31: Glucometer 208H Microbiology 12/27/19 Gram Stain - Final, Complete 12/27/19 Sputum Culture - Final, Complete Streptococcus pneumoniae YEAST Usual upper respiratory tushar 12/27/19 Blood Culture - Preliminary, Resulted No growth 12/27/19 Urine Culture - Final, Complete NO GROWTH Patient resulted labs reviewed. Pending Labs Laboratory Tests 01/01/20 03:44: Glucometer 302 01/01/20 05:16: Sodium Level 137, Potassium Level 3.8, Chloride Level 107, Carbon Dioxide Level 21, Anion Gap 9, Blood Urea Nitrogen 20, Creatinine 1.22, Estimat Glomerular Filtration Rate 46, BUN/Creatinine Ratio 16, Glucose Level 236, Calcium Level 7.8, Phosphorus Level 2.2, Magnesium Level 1.7 01/01/20 05:18: White Blood Count 8.8, Red Blood Count 2.99, Hemoglobin 9.5, Hematocrit 29, Mean Corpuscular Volume 98, Mean Corpuscular Hemoglobin 32, Mean Corpuscular Hemoglobin Concent 32, Red Cell Distribution Width 14.0, Platelet Count 220, Mean Platelet Volume 10.2, Neutrophils (%) (Auto) 58, Lymphocytes (%) (Auto) 33, Monocytes (%) (Auto) 7, Eosinophils (%) (Auto) 3, Basophils (%) (Auto) 0, Neutrophils # (Auto) 5.1, Lymphocytes # (Auto) 2.9, Monocytes # (Auto) 0.6, Eosinophils # (Auto) 0.2, Basophils # (Auto) 0.0 01/01/20 05:31: Glucometer 208 Imaging: Reviewed Imaging Report Discharge Home Medications: Active Scripts Active Lisinopril 20 Mg Tablet 20 Mg PO DAILY Levemir (Insulin Determir) 1,000 Units/10 Ml Soln 13 Unit SQ HS Amox Tr-K Clv 500-125 mg Tab (Amoxicillin/Potassium Clav) 1 Each Tablet 500 Mg PO BID WITH MEALS Reported Lantus Solostar (Insulin Glargine,Hum.rec.anlog) 100 Unit/1 Ml Insuln.pen 20 Units SQ DAILY W/ BREAKFAST Humalog Kwikpen (Insulin Lispro) 100 Unit/1 Ml Insuln.pen 5 Units SQ TIDWM Proair Hfa (Albuterol Sulfate) 1 Puff Puff 2 Puff IH TID PRN Niacin (Niacinamide) 500 Mg Tablet 500 Mg PO Q48H Slow-Mag (Magnesium Chloride) 64 Mg Tab 2 Tab PO Q48H Potassium (Potassium Gluconate) 99 Mg Tablet 99 Mg PO Q48H Montelukast Sodium 10 Mg Tablet 5 Mg PO DAILY TAKES OF A 10 MG TO EQUAL 5MG DAILY Instructions to patient/family Please see electronic discharge instructions given to patient. Clinical Quality Measures DVT/VTE Risk/Contraindication: Risk Factor Score Per Nursin RFS Level Per Nursing on Admit: 4+=Very High Problem Qualifiers (1) Diabetic ketoacidosis: Diabetes mellitus type: type 2 Diabetes mellitus complication detail: with coma Qualified Codes: E11.11 - Type 2 diabetes mellitus with ketoacidosis with coma TRUDI SERRANO MD Jan 01, 2020 10:19
[2020-01-01 13:06] VITALS: BP 127/76
--- NOTE | 2020-01-03 12:11 | Physician Query Clarification ---
PQ-Conflicting Diagnosis Admission/Discharge Admission Date: Dec 27, 2019 at 04:00 Discharge Date: Jan 01, 2020 at 13:15 The medical record reflects the following clinical scenario: History/Risk Factors: DKA, Acute respiratory failure, hypovolemic shock, acute kidney failure, metabolic acidosis Clinical Findings: WBC 32.5, T 34.4, P 130, R 30, Lactic 6.69 Treatment: IV Vancomycin, IV Zosyn Question: Do you agree with the impression of the severe sepsis per Dr. Winkler. Severe sepsis was not listed in final diagnoses. Please document a response in Progress Note or Discharge Summary. 1. Yes 2. No 3. Other, with explanation of clinical findings 4. Clinically undetermined, no explanation for clinical findings. PHYSICIAN RESPONSE Do you agree w/Consulting Dx?: No Please remember a lack of response to the above will prompt a phone page by CDI/Coding staff. In responding to this query, please exercise your independent professional judgment. The purpose of this communication is to more accurately reflect the complexity of your patients condition. The fact that a question is asked does not imply that any particular answer is desired or expected. Thank you for your timely response to this clarification. Requestors name: Dalton THIS PHYSICIAN QUERY FORM IS A PERMANENT PART OF THE MEDICAL RECORD DALTON HAQ Jan 03, 2020 12:11 TRUDI SERRANO MD Jan 03, 2020 16:05
--- NOTE | 2020-01-03 12:19 | Physician Query Clarification ---
PQ-Intro New Diagnosis Admission/Discharge Admission Date: Dec 27, 2019 at 04:00 Discharge Date: Jan 01, 2020 at 13:15 The medical record reflects the following clinical scenario: History/Risk Factors: DKA, acute respiratory failure, acute renal failure, metabolic acidosis Clinical Findings: sputum culture grew out streptococcus pneumoniae and yeast Treatment: IV Vancomycin and IV Zosyn Question: What condition best reflects the above clinical scenario? Please document a response in the Progress Noter or Discharge Summary. 1. strept pneumoniae and yeast are due to underlying condition (please list condition) 2. strept pneumoniae and yeast are contaminents, no respiratory infection 3. Other, with explanation of the clinical findings. 4. Clinically undetermined, no explanation for the clinical findings. PHYSICIAN RESPONSE What condition reflects above: 1 (CAP) Please remember a lack of response to the above will prompt a phone page by CDI/Coding staff. In responding to this query, please exercise your independent professional judgment. The purpose of this communication is to more accurately reflect the complexity of your patients condition. The fact that a question is asked does not imply that any particular answer is desired or expected. Thank you for your timely response to this clarification. Requestors name: Dalton THIS PHYSICIAN QUERY FORM IS A PERMANENT PART OF THE MEDICAL RECORD DALTON HAQ Jan 03, 2020 12:19 TRUDI SERRANO MD Jan 06, 2020 11:29
== END 2020-01-01 13:15 | disposition home or self-care (01) | DRG 208 ==
LOC: EDUNIT# 02:00 → ER 02:01 → ICU 04:00 → 4TH 12-29 15:53
PROVIDERS: ADMIT Internal Medicine; ATTEND Internal Medicine
PROC: 5A1945Z Respiratory Ventilation, 24-96 Consecutive Hours (ICD-10-PCS; principal; 2019-12-27)
PROC: 0BH17EZ Insertion of Endotracheal Airway into Trachea, Via Natural or Artificial Opening (ICD-10-PCS; 2019-12-27)
DX: J96.00 Acute respiratory failure, unspecified whether with hypoxia or hypercapnia (principal); J13 Pneumonia due to Streptococcus pneumoniae; B37.1 Pulmonary candidiasis; E10.11 Type 1 diabetes mellitus with ketoacidosis with coma; R57.1 Hypovolemic shock; N17.9 Acute kidney failure, unspecified; G93.49 Other encephalopathy; E87.1 Hypo-osmolality and hyponatremia; F15.10 Other stimulant abuse, uncomplicated; D64.9 Anemia, unspecified; N18.9 Chronic kidney disease, unspecified; E10.43 Type 1 diabetes mellitus with diabetic autonomic (poly)neuropathy; R00.0 Tachycardia, unspecified; I95.9 Hypotension, unspecified; E87.5 Hyperkalemia; J44.9 Chronic obstructive pulmonary disease, unspecified; K21.9 Gastro-esophageal reflux disease without esophagitis; M06.9 Rheumatoid arthritis, unspecified; F60.9 Personality disorder, unspecified; F17.210 Nicotine dependence, cigarettes, uncomplicated; M19.91 Primary osteoarthritis, unspecified site; Z86.718 Personal history of other venous thrombosis and embolism; Z87.11 Personal history of peptic ulcer disease; Z79.4 Long term (current) use of insulin; Z91.81 History of falling; E10.649 Type 1 diabetes mellitus with hypoglycemia without coma; K92.2 Gastrointestinal hemorrhage, unspecified; E87.6 Hypokalemia
CPT/HCPCS: 31500; 36415; 36600; 70450; 71045; 72125; 80048; 80053; 80306; 80320; 81000; 82010; 82550; 82805; 82962; 83036; 83605; 83735; 84100; 84478; 84484; 85007; 85014; 85018; 85025; 85027; 85610; 85730; 87040; 87070; 87077; 87081; 87088; 87181; 87184; 87205; 87804; 93005; 94002; 94640; 94760; 94799; 96374; 96375

== ENCOUNTER 2020-05-03 17:52 | Inpatient (IN) | payer MEDICAID ==
[~2020-05-03] VITALS: Ht 165.1 cm; Wt 73.2 kg
[2020-05-03] VITALS (8 sets, daily range): BP systolic 98–119; BP diastolic 47–66
[~2020-05-03 17:52] MED LIST changes: +AMOX1TAB11 PO; +INSU100I10 SQ; +INSU100I23 SQ; +INSU100V5 SQ; +LISI-552 PO; -MONT10TA24 PO; +MONT10TA26 PO
--- NOTE | 2020-05-03 18:09 | ED General ---
General Chief Complaint: Glucose Problems Stated Complaint: POSS DKA Source of Information: Patient Exam Limitations: No Limitations History of Present Illness Date Seen by Provider: May 03, 2020 Time Seen by Provider: 18:07 Initial Comments To ER with nausea and vomiting since this morning. Known diabetic takes Levemir and NovoLog. Hasn't had her glucometer at home so doesn't know what her sugars have been running. She's too high to read on arrival to ER Timing/Duration: 1-2 Days Severity: Moderate Associated Systoms: Nausea/Vomiting Allergies and Home Medications Allergies Coded Allergies: Sulfa (Sulfonamide Antibiotics) (Unverified Allergy, Unknown, 05/11/15) codeine (Verified Allergy, Unknown, TAKES ULTRAM AT HOME, 11/18/08) ketorolac (Verified Allergy, Unknown, 10/05/08) tramadol (Verified Allergy, Unknown, 11/02/11) Home Medications Albuterol Sulfate 1 Puff Puff, 2 PUFF IH TID PRN for SHORTNESS OF BREATH, ( Reported) Insulin Determir 1,000 Units/10 Ml Soln, 13 UNIT SQ HS Prescribed by: TRUDI SERRANO on 01/01/20 1008 Insulin Lispro 100 Unit/1 Ml Insuln.pen, 5 UNITS SQ TIDWM, (Reported) Lisinopril 20 Mg Tablet, 20 MG PO DAILY Prescribed by: TRUDI SERRANO on 01/01/20 1008 Magnesium Chloride 64 Mg Tab, 2 TAB PO Q48H, (Reported) Montelukast Sodium 10 Mg Tablet, 5 MG PO DAILY, (Reported) TAKES OF A 10 MG TO EQUAL 5MG DAILY Niacinamide 500 Mg Tablet, 500 MG PO Q48H, (Reported) Potassium Gluconate 99 Mg Tablet, 99 MG PO Q48H, (Reported) Patient Home Medication List Home Medication List Reviewed: Yes Review of Systems Review of Systems Constitutional: see HPI EENTM: see HPI Respiratory: no symptoms reported Genitourinary: no symptoms reported Musculoskeletal: no symptoms reported Skin: no symptoms reported Psychiatric/Neurological: No Symptoms Reported Hematologic/Lymphatic: No Symptoms Reported Past Oeqqmlg-Ptliff-Yaejny Hx Patient Social History Drug of Choice: THC Type Used: Cigarettes 2nd Hand Smoke Exposure: No Recent Foreign Travel: No Contact w/Someone Who Travel: No Recent Hopitalizations: No Immunizations Up To Date Tetanus Booster (TDap): Unknown Date of Pneumonia Vaccine: Aug 17, 2012 Date of Influenza Vaccine: Aug 17, 2012 Seasonal Allergies Seasonal Allergies: No Past Medical History Surgeries: Yes (renal stents) Adenoidectomy, Ear Surgery, Hysterectomy, Tonsillectomy Respiratory: Yes Asthma, Pneumonia, Chronic Bronchitis Cardiac: Yes Deep Vein Thrombosis Neurological: Yes Neuropathy Reproductive Disorders: Yes Female Reproductive Disorders: Menstrual Problems Genitourinary: Yes Renal Failure Gastrointestinal: Yes (gastroparesis) Gastroesophageal Reflux, Pancreatitis, Ulcer Musculoskeletal: Yes Arthritis, Rheumatoid Arthritis, Fractures Endocrine: Yes Diabetes, Insulin dep HEENT: No Tonsilitis Loss of Vision: Denies Hearing Impairment: Denies Cancer: No Psychosocial: Yes Personality Disorder Integumentary: No Blood Disorders: No Adverse Reaction/Blood Tranf: No Family Medical History FH: thyroid cancer G8 SISTER FHx: macular degeneration 19 MOTHER Glaucoma G8 BROTHER Heart Disease, Cancer, Diabetes Physical Exam Vital Signs Vital Signs - First Documented 05/03/20 17:59 Temp 37.6 Pulse 122 Resp 18 B/P (MAP) 134/86 (102) Pulse Ox 98 Capillary Refill : Height, Weight, BMI Height: 5'5.00" Weight: 151lbs. 1.0oz. 68.078096oc; 32.00 BMI Method:Stated General Appearance: No Apparent Distress, WD/WN Eyes: Bilateral Eye Normal Inspection, Bilateral Eye PERRL, Bilateral Eye EOMI HEENT: PERRL/EOMI, TMs Normal Respiratory: Normal Breath Sounds, No Accessory Muscle Use, No Respiratory Distress Cardiovascular: Regular Rate, Rhythm, Normal Peripheral Pulses Gastrointestinal: Non Tender, Soft Extremity: Normal Capillary Refill, Normal Inspection Neurologic/Psychiatric: Alert, Oriented x3 Skin: Normal Color, Warm/Dry Procedures/Interventions Date of ETT Placement: Dec 27, 2019 Time of ETT Placement: 311 Progress/Results/Core Measures Suspected Sepsis SIRS Temperature: Pulse: Respiratory Rate: Laboratory Tests 05/03/20 18:34: White Blood Count 11.3H Blood Pressure / Mean: Laboratory Tests 05/03/20 18:15: Creatinine 3.27H, Total Bilirubin 0.5 05/03/20 18:34: Platelet Count 444H Results/Orders Lab Results Laboratory Tests Test 05/03/20 18:02 05/03/20 18:15 05/03/20 18:05/03/20 18:34 Range/Units Glucometer > 600 *H 70-110 MG/DL Sodium Level 116 *L 135-145 MMOL/L Potassium Level 6.6 *H 3.6-5.0 MMOL/L Chloride Level 79 L 98-107 MMOL/L Carbon Dioxide Level 8 *L 21-32 MMOL/L Anion Gap 29 H 5-14 MMOL/L Blood Urea Nitrogen 77 H 7-18 MG/DL Creatinine 3.27 H 0.60-1.30 MG/DL Estimat Glomerular Filtration Rate 15 BUN/Creatinine Ratio 24 Glucose Level 1322 *H 70-105 MG/DL Calcium Level 9.6 8.5-10.1 MG/DL Corrected Calcium 10.0 8.5-10.1 MG/DL Total Bilirubin 0.5 0.1-1.0 MG/DL Aspartate Amino Transf (AST/SGOT) 22 5-34 U/L Alanine Aminotransferase (ALT/SGPT) 31 0-55 U/L Alkaline Phosphatase 123 40-136 U/L Total Protein 8.4 H 6.4-8.2 GM/DL Albumin 3.5 3.2-4.5 GM/DL Lipase 71 8-78 U/L Beta-Hydroxybutyrate (Chem panel) 8.53 H 0.00-0.27 MMOL/L Blood Gas Puncture Site R RAD Blood Gas Patient Temperature 37.6 Arterial Blood pH 7.34 *L 7.37-7.43 Arterial Blood Partial Pressure CO2 15 *L 35-45 MMHG Arterial Blood Partial Pressure O2 147 H 79-93 MMHG Arterial Blood HCO3 8 *L 23-27 MMOL/L Arterial Blood Total CO2 8.3 L 21.0-31.0 MMOL/L Arterial Blood Oxygen Saturation 97 94-100 % Arterial Blood Base Excess -17.2 L -2.5-2.5 MMOL/L Long Test YES-POS Blood Gas Ventilator Setting NO Blood Gas Inspired Oxygen RA White Blood Count 11.3 H 4.3-11.0 10^3/uL Red Blood Count 3.80 L 4.35-5.85 10^6/uL Hemoglobin 11.8 11.5-16.0 G/DL Hematocrit 38 35-52 % Mean Corpuscular Volume 99 80-99 FL Mean Corpuscular Hemoglobin 31 25-34 PG Mean Corpuscular Hemoglobin Concent 31 L 32-36 G/DL Red Cell Distribution Width 13.5 10.0-14.5 % Platelet Count 444 H 130-400 10^3/uL Mean Platelet Volume 10.1 7.4-10.4 FL Neutrophils (%) (Auto) 90 H 42-75 % Lymphocytes (%) (Auto) 10 L 12-44 % Monocytes (%) (Auto) 0 0-12 % Eosinophils (%) (Auto) 0 0-10 % Basophils (%) (Auto) 0 0-10 % Neutrophils # (Auto) 10.1 H 1.8-7.8 X 10^3 Lymphocytes # (Auto) 1.1 1.0-4.0 X 10^3 Monocytes # (Auto) 0.1 0.0-1.0 X 10^3 Eosinophils # (Auto) 0.0 0.0-0.3 10^3/uL Basophils # (Auto) 0.0 0.0-0.1 10^3/uL Neutrophils % (Manual) 84 % Lymphocytes % (Manual) 12 % Monocytes % (Manual) 1 % Band Neutrophils 3 % Blood Morphology Comment NORMAL My Orders Orders - LIZET MAS ROD PLACER Cbc With Automated Diff (05/03/20 18:04) Comprehensive Metabolic Panel (05/03/20 18:04) Beta Hydroxybutyrate (05/03/20 18:04) Arterial Blood Gas (05/03/20 18:04) Ed Iv/Invasive Line Start (05/03/20 18:04) Lipase (05/03/20 18:04) Ua Culture If Indicated (05/03/20 18:04) Drug Screen Stat (Urine) (05/03/20 18:04) Lactated Ringers (Lr 1000 Ml Iv Solution (05/03/20 18:15) Promethazine Injection (Phenergan Injec (05/03/20 18:15) Accucheck Prn (05/03/20 18:04) Insulin Regular Drip (Myxredlin 100 Unit (05/03/20 18:15) Insulin (Regular) Human (Novolin R (Per (05/03/20 18:15) Manual Differential (05/03/20 18:34) Ondansetron Injection (Zofran Injectio (05/03/20 19:00) Lr 1000 Ml Wide Open (05/03/20 19:00) Normal Saline Bolus 1,000ml (05/03/20 19:00) Medications Given in ED Current Medications Medications Dose Ordered Sig/Nehemias Route Start Time Stop Time Status Last Admin Dose Admin Promethazine HCl 25 mg ONCE ONCE IVP 05/03/20 18:15 05/03/20 18:16 DC 05/03/20 18:24 25 MG Vital Signs/I&O 05/03/20 17:59 Temp 37.6 Pulse 122 Resp 18 B/P (MAP) 134/86 (102) Pulse Ox 98 Capillary Refill : Departure Communication (Admissions) Time/Spoke to Admitting Phy: 19:01 Impression Primary Impression: DKA (diabetic ketoacidoses) Qualified Codes: E11.10 - Type 2 diabetes mellitus with ketoacidosis without coma Disposition: HOME, SELF-CARE Condition: Stable Admissions Decision to Admit Reason: Admit from ER (General) Decision to Admit/Date: May 03, 2020 Time/Decision to Admit Time: 19:01 Departure-Patient Inst. Referrals: NO,LOCAL PHYSICIAN (PCP/Family) Primary Care Physician LIZET MAS APRN May 03, 2020 18:09
[2020-05-03] MEDS ORDERED: PROMETHAZINE INJ 25 MG/ML (PHENERGAN) AMP IVP ONE (18:15)
[2020-05-03] MEDS ORDERED: LACTATED RINGERS 1,000 ML IV SCH ×2 (18:15→19:00)
[2020-05-03] MEDS: inSUlin (REGULAR) HUMAN 1 UNIT/0.01 ML (CHARGE PER UNIT) IV SCH (18:23)
[2020-05-03 18:32] LABS: ABG BASE EXCESS -17.2 MMOL/L (-2.5-2.5); ABG OXYGEN SATURATION 97 % (94-100); ABG PCO2 15 MMHG (35-45); ABG PO2 147 MMHG (79-93); ABG TCO2 8.3 MMOL/L (21.0-31.0); ALLENS TEST YES-POS; PATIENT TEMP 37.6
[2020-05-03 18:32] LABS: ALBUMIN 3.5 GM/DL (3.2-4.5)
[2020-05-03 18:34] LABS: ABG PH 7.34 (7.37-7.43); INSPIRED O2 RA; VENTILATOR NO
[2020-05-03 18:34] LABS: CALCIUM 9.6 MG/DL (8.5-10.1)
[2020-05-03 18:35] LABS: TOTAL PROTEIN 8.4 GM/DL (6.4-8.2)
[2020-05-03 18:37] LABS: BILIRUBIN,TOTAL 0.5 MG/DL (0.1-1.0)
[2020-05-03 18:39] LABS: BASOPHILS % (AUTO) 0 % (0-10); EOSINOPHILS % (AUTO) 0 % (0-10); HEMATOCRIT 38 % (35-52); HEMOGLOBIN 11.8 G/DL (11.5-16.0); LYMPHOCYTES # (AUTO) 1.1 X 10^3 (1.0-4.0); LYMPHOCYTES % (AUTO) 10 % (12-44); MEAN CORPUSCULAR HEMOGLOBIN 31 PG (25-34); MEAN CORPUSCULAR HGB CONC 31 G/DL (32-36); MEAN CORPUSCULAR VOLUME 99 FL (80-99); MEAN PLATELET VOLUME 10.1 FL (7.4-10.4); MONOCYTES # (AUTO) 0.1 X 10^3 (0.0-1.0); MONOCYTES % (AUTO) 0 % (0-12); NEUTROPHILS # (AUTO) 10.1 X 10^3 (1.8-7.8); NEUTROPHILS % (AUTO) 90 % (42-75); PLATELET COUNT 444 10^3/uL (130-400); RED CELL DISTRIBUTION WIDTH 13.5 % (10.0-14.5); WHITE BLOOD COUNT 11.3 10^3/uL (4.3-11.0)
[2020-05-03 18:45] LABS: POTASSIUM 6.6 MMOL/L (3.6-5.0)
[2020-05-03 18:50] LABS: BAND NEUTROPHILS 3 %; LYMPHOCYTES % (MANUAL) 12 %; MONOCYTES % (MANUAL) 1 %; NEUTROPHILS % (MANUAL) 84 %
[2020-05-03 18:52] LABS: RBC MORPH NORMAL
[2020-05-03 18:57] LABS: CREATININE SERUM 3.27 MG/DL (0.60-1.30)
[2020-05-03] MEDS ORDERED: NS IV 1000 ML 1,000 ML IV SCH ×2 (19:00→21:41)
[2020-05-03] MEDS ORDERED: ONDANSETRON 4 MG/2 ML (SDV) Z0FRAN IVP ONE (19:00)
[2020-05-03] MEDS ORDERED: ACETAMINOPHEN 500 MG TAB (TYLENOL) PO ONE (19:45)
[2020-05-03 19:55] LABS: BILIRUBIN,URINE NEGATIVE (NEGATIVE); CLARITY,URINE CLEAR; COLOR,URINE YELLOW; GLUCOSE, URINE (UA) 3+ (NEGATIVE); KETONES,URINE 1+ (NEGATIVE); LEUKOCYTE ESTERASE ,URINE NEGATIVE (NEGATIVE); NITRITE,URINE NEGATIVE (NEGATIVE); PROTEIN,URINE 3+ (NEGATIVE)
[2020-05-03 20:13] LABS: BACTERIA,URINE TRACE /HPF; SQUAMOUS EPITHELIAL CELL,UR 0-2 /HPF
[2020-05-03 20:18] LABS: AMPHETAMINE SCREEN, URINE NEGATIVE (NEGATIVE); BARBITURATE SCREEN URINE NEGATIVE (NEGATIVE); BENZODIAZEPINES SCREEN URINE NEGATIVE (NEGATIVE); CANNABINOID SCREEN, URINE POSITIVE (NEGATIVE); COCAINE SCREEN URINE NEGATIVE (NEGATIVE); METHADONE STAT NEGATIVE (NEGATIVE); METHAMPHETAMINE SCREEN URINE S NEGATIVE (NEGATIVE); OPIATE SCREEN URINE NEGATIVE (NEGATIVE); OXYCODONE STAT NEGATIVE (NEGATIVE); PROPOXYPHENE STAT NEGATIVE (NEGATIVE); TRICYCLIC ANTIDEPRESSANTS SCRE NEGATIVE (NEGATIVE)
[2020-05-03] MEDS ORDERED: 1/2 NS IV SOLUTION 1,000 ML IV ONE (21:16)
[2020-05-03] MEDS: 1/2 NS IV SOLUTION 1,000 ML IV SCH (21:20)
[2020-05-03 21:38] LABS: CALCIUM 8.6 MG/DL (8.5-10.1); CREATININE SERUM 3.11 MG/DL (0.60-1.30); POTASSIUM 4.4 MMOL/L (3.6-5.0)
[2020-05-03] MEDS ORDERED: PROMETHAZINE INJ 25 MG/ML (PHENERGAN) AMP IV PRN (21:45)
[2020-05-03] MEDS ORDERED: D5 1/2 NS 1000 ML IV SOLUTION 1,000 ML IV SCH (21:45)
--- OUTSIDE RECORDS SUMMARY | 2020-05-03 21:45 | XMS REPORT | Clinical Summary ---
Author Author [facility] Organization [facility] Address Unknown Phone Unavailable Care Team Providers Care Scaffolder Name Role Phone No Pcp, Na PCP Unavailable Source Comments Some departments are not documenting in the electronic medical record. If you d o not see the information that you expected, contact Release of Information in [facility] Information Management department at [phone] for further assistan ce in locating additional records.[facility] Allergies Not on File Medications Not on [...] Health Maintenance Due Date Last Done Comments HIV SCREENING 1978 DTAP/TDAP VACCINES (1 - 1981 Tdap) HEPATITIS C SCREENING 1981 PHYSICAL (COMPREHENSIVE) 1981 EXAM CERVICAL CANCER SCREENING 02/29/1984 BREAST CANCER SCREENING 2003 COLORECTAL CANCER 2013 SCREENING SHINGLES RECOMBINANT 2013 VACCINE (1 of 2) INFLUENZA VACCINE 08/17/2020 Results Not on filefrom Last 3 Months Insurance Type Payer Benefit Subscriber ID Effective Phone Address Plan / Dates Group [employer] [place] xxxxxxxxx 2016- HEALTH Present SERVICES Advance Directives Patient Flame Planer Explanation Type Date Recorded Advance 03/04/2016 11:45 AM Directive/DPOA
--- OUTSIDE RECORDS SUMMARY | 2020-05-03 21:45 | XMS REPORT ---
Author Author [facility] Address [address] [place] [address] Care Team Providers Care [employer] Project Manager Name Role Phone KARY ROWE Sb Unavailable gillianBAKARI BERNARD Unavailable XIAO BLUNT, JAVY Thibodeaux Unavailable Unavailable MAGGIE BLUNT, TRUDI Wong Unavailable Unavailable DONAVON BLUNT, NOEMÍ Wong Unavailable Unavailable DONAVON BLUNT, NOEMÍ Wong Unavailable Unavailable LAURENCE MERAZ DO Unavailable Unavailable LIZET MAS APRN Unavailable Unavailable AICHA HAYDEN MD Unavailable Unavailable Unavailable Unavailable Allergies No Information Medications No Information Problems Active Problems Problem Normalized Date Last Normalized Normalized Provider Fa cility Classification Problem(s) Recorded Problem Problem Sta tus Duration Other liver Abnormal Episodic Active KARY Not Availab le diseases (3 levels of GELLENDER , DO (69725) sources.) other serum enzymes Residual Acquired Episodic Active LIZET MAS Not Availab le codes; absence of (08787) unclassified both cervix (4 sources.) and uterus Residual Acquired Episodic Active PITER OLSON Via codes; absence of CINTHYA Jane unclassified other organs Hospital - (1 source.) [facility] (97131) Acute and Acute kidney Episodic Active KARY Not Avail able unspecified failure, GELLENDER , DO (19713) renal failure unspecified (16 sources.) Translations: [ ACUTE KIDNEY FAILURE WITH TUBULAR NECROS, ACUTE KIDNEY FAILURE, UNSPECIFIED] Respiratory Acute Episodic Active PITER HERRERA Vi a failure; respiratory MD Jane insufficiency; failure, Hospital - arrest (adult) unspecified [facility] (6 sources.) whether with (51183) hypoxia or hypercapnia Allergic Allergy status Episodic Active VC Melania PIERRE Via reactions (8 to narcotic MD Jane sources.) agent status Hospital - Translations: [facility] [ ALLERGY (18932) STATUS TO SULFONAMIDES STATUS, ALLERGY STATUS TO NARCOTIC AGENT STATUS] Deficiency and Anemia, Episodic Active NOEMÍ DONAVON , [facility] Via other anemia unspecified MD Jane (6 sources.) Hospital [facility] [place] ([id number]) Personality Borderline Chronic Active KARY Not Avail able disorders (17 personality SOLEDAD DO (76519) sources.) disorder Translations: [ PERSONALITY DISORDER, UNSPECIFIED] Chronic kidney Chronic kidney Chronic Active AHMED No t Available disease (22 disease, stage ABOUL-MAGD , (80603) sources.) 3 (moderate) MD Translations: [ CHRONIC KIDNEY DISEASE, STAGE II (MILD), CHRONIC KIDNEY DISEASE, UNSPECIFIED, CHRONIC KIDNEY DISEASE, STAGE III (MODER, CHRONIC KIDNEY DISEASE, STAGE 2 (MILD)] Chronic Chronic Chronic Active NOEMÍ DONAVON , [facility] Via obstructive obstructive MD Jane pulmonary pulmonary [facility] - disease and disease, [facility] bronchiectasis unspecified (50829) (14 sources.) Diabetes Diabetes Chronic Active MEICHELLE WOOD Not Avai lable mellitus mellitus (19036) without without complication mention of (11 sources.) complication, type I [juvenile type], not stated as uncontrolled Translations: [ TYPE 2 DIABETES MELLITUS WITHOUT COMPLIC] Diabetes Diabetes with Chronic Active NATALIIA Not Avai lable mellitus with other DO GEORGE (16869) complications specified (21 sources.) manifestations , type II or unspecified type, not stated as uncontrolled Translations: [ DIAB LONA WO COMPL, TYPE I [JUVENILE TYP, TYPE 1 DIABETES MELLITUS WITH HYPERGLYCE, TYPE 2 DIABETES MELLITUS W OTH DIABETIC , DIAB W RENAL MANIFEST, TYPE I [JUVENILE , DIAB W RENAL MANIFEST, TYPE II OR UNSPEC, TYPE 2 DIABETES MELLITUS WITH DIABETIC N, TYPE 2 DIABETES MELLITUS W 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, DIAB W NEURO MANIFEST, TYPE I [JUVENILE , TYPE 1 DIABETES MELLITUS WITH KETOACIDOS, TYPE 1 DIABETES MELLITUS WITH DIABETIC N, TYPE 1 DIABETES W DIABETIC AUTONOMIC (PO, TYPE 2 DIABETES MELLITUS WITH KETOACIDOS, TYPE 2 DIABETES W DIABETIC AUTONOMIC (PO, TYPE 1 DIABETES MELLITUS WITH KETOACIDOS, TYPE 1 DIABETES MELLITUS WITH HYPOGLYCEM] 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 (3 sources.) identity GELWINSTONDER , DO (50269) disorder Diseases of Elevated white Chronic Active NOEMÍ DONAVON , [facility] Via white blood blood cell MD Jnae cells (7 count, Hospital - sources.) unspecified [facility] (82379) Esophageal Esophageal Chronic Active KARY Not Availa ble disorders (21 reflux GELLENDER , DO (38703) sources.) Translations: [ GASTRO-ESOPHAG EAL REFLUX DISEASE WITHOUT] Residual Family history Episodic Active LIZET MAS Not A vailable codes; of ischemic (46068) unclassified heart disease (3 sources.) and other diseases of the circulatory system Residual Family history Episodic Active LIZET MAS [facility] Via codes; of [facility] neoplasm of Hospital - (1 source.) other organs [facility] or systems (91119) Gastrointestin Gastrointestin Episodic Active NOEMÍ RAPHAEL [facility] Via al hemorrhage al hemorrhage, MD Jane (3 sources.) unspecified Hospital - [facility] (45773) Other Gastroparesis Episodic Active LIZET MAS [facility] Via disorders of CINTHYA [place] stomach and Hospital - duodenum (1 [facility] source.) (86744) Other injuries History of Episodic Active NOEMÍ RAPHAEL [facility] Via and conditions falling MD Jane due to Hospital - external [facility] causes (6 (24166) sources.) Diabetes Hyperglycemia, Episodic Active KARY Not Ursula ilable mellitus unspecified GELLENDER , DO (61784) without complication (3 sources.) Disorders of Hyperlipidemia Chronic Active AHMED Not Available lipid , unspecified ABOUL-MAGD , (32406) metabolism (21 Translations: MD sources.) [ HYPERLIPIDEMIA NEC/NOS] Hypertension Hypertensive Chronic Active MEICHELLE WOOD N ot Available with chronic kidney (06305) complications disease with and secondary stage 1 hypertension through stage (16 sources.) 4 chronic kidney disease, or unspecified chronic kidney disease Translations: [ HYPTNSV CHR KID DIS, BENIGN, W CHR KD ST] Other Hypotension, Episodic Active NOEMÍ RAPHAEL [facility] Via circulatory unspecified MD Jane disease (6 Hospital - sources.) [facility] (29173) Other Hypotension, Episodic Active KARY Not Avail able circulatory unspecified GELLENDER , DO (36093) disease (3 sources.) Shock (6 Hypovolemic Episodic Active PITER HERRERA V ia sources.) shock MD Jane [facility] (98317) Other longterm Episodic Active LIZET MAS Not Availa ble aftercare (4 (current) use (05004) sources.) of anticoagulants Other longterm Episodic Active LIZET MAS Not Availa ble aftercare (18 (current) use (15140) sources.) of insulin Other Long-term Episodic Active KARY Not Availabl e aftercare (3 (current) use GELLENDER , DO (67326) sources.) of insulin Nonmalignant Lump or mass Episodic Active KARY Not Av ailable breast in breast GELLENDER , DO (80815) conditions (3 sources.) Headache; Migraine, Chronic Active SUZETTE Not Availabl e including unspecified, MD KUMAR (20357) migraine (2 without sources.) mention of intractable migraine without mention of status migrainosus Nephritis; Nephritis and Chronic Active MEICHELLE WOOD No t Available nephrosis; nephropathy, (34481) renal not specified sclerosis (10 as acute or sources.) chronic, in diseases classified elsewhere Other Other Episodic Active KARY Not Available connective calcification GELLENDER , DO (94900) tissue disease of muscle, (2 sources.) other site Other nervous Other chronic Chronic Active TRUDI SERRANO [facility] Via system pain MD Jane disorders (3 Hospital - sources.) [facility] (73028) Other nervous Other Chronic Active PITER HERRERA Via system encephalopathy MD Jane disorders (6 Hospital - sources.) [facility] (83037) Other Other long Episodic Active AHMED Not Availab le aftercare (3 term (current) ABOUL-MAGD , (22833) sources.) drug therapy Unclassified Other Episodic Active KARY Not Availa ble (7 sources.) screening GELGURWINDER , DO (90059) mammogram Translations: [ ABNORMAL RESULTS OF LIVER FUNCTION STUDI] Other upper Other seasonal Chronic Active NOEMÍ RAPHAEL [facility] Via respiratory allergic MD Jane disease (7 rhinitis Hospital - sources.) [facility] (13700) Other Pain in left Episodic Active KARY Not Avail able non-traumatic elbow GELLENDER , DO (73710) joint disorders (2 sources.) Other Personal Episodic Active NOEMÍ RAPHAEL [facility] Via circulatory history of MD Jane disease (3 other diseases Hospital - sources.) of the [facility] circulatory (04845) system Gastroduodenal Personal Episodic Active NOEMÍ RAPHAEL [facility] Via ulcer (except history of MD Jane hemorrhage) peptic ulcer Hospital - (13 sources.) disease [facility] (22397) Other lower Personal Episodic Active LIZET RIVASES Not Avail able respiratory history of (32247) disease (5 pneumonia sources.) (recurrent) Phlebitis; Personal Episodic Active KARY Not Availabl e thrombophlebit history of GELLENDER , DO (20722) is and venous thromboembolis thrombosis and m (20 embolism sources.) Translations: [ ACUTE VENOUS EMBOLISM THROMBOSIS UNSP , PERSONAL HISTORY OF OTHER VENOUS THROMBO] Pneumonia Pneumonia due Episodic Active PITER HERRERA Via (except that to MD Jane caused by Streptococcus Hospital - tuberculosis pneumoniae [facility] or sexually Translations: (14263) transmitted [ PULMONARY disease) (2 CANDIDIASIS] sources.) Poisoning by Poisoning by Episodic Active KARY Not Av ailable psychotropic benzodiazepine GELLENDER , DO (90044) agents (3 -based sources.) tranquilizers Poisoning by Poisoning by Episodic Active KARY Not Av ailable other other opiates GELLENDER , DO (53564) medications and related and drugs (3 narcotics sources.) Other Presence of Chronic Active PITER HERRERA V ia circulatory other vascular MD Jane disease (7 implants and Hospital - sources.) grafts [facility] (33602) Genitourinary Presence of Chronic Active NOEMÍ RAPHAEL [facility] Via symptoms and urogenital MD Jane ill-defined implants Hospital - conditions (3 [facility] sources.) (14571) Genitourinary Proteinuria, Episodic Active MEICHELLE WOOD Not Available symptoms and unspecified (03589) ill-defined Translations: conditions (20 [ PROTEINURIA] sources.) Rheumatoid Rheumatoid Chronic Active KARY Not Availa ble arthritis and arthritis GELLENDER , DO (68735) related Translations: disease (21 [ RHEUMATOID sources.) ARTHRITIS, UNSPECIFIED] Abdominal pain Right lower Episodic Active LIZET MAS Not Available (5 sources.) quadrant pain (46308) Septicemia Sepsis, Episodic Active PITER HERRERA Via (except in unspecified MD Jane labor) (4 organism Hospital - sources.) Translations: [facility] [ SEVERE (95717) SEPSIS WITHOUT SEPTIC SHOCK] Cardiac Tachycardia, Episodic Active NOEMÍ RAPHAEL [facility] Via dysrhythmias unspecified MD Jane (6 sources.) Hospital - [facility] (56510) Asthma (5 Unspecified Chronic Active KARY Not Availa ble sources.) asthma, GELLENDER , DO (54402) uncomplicated Translations: [ ASTHMA, UNSPECIFIED] Essential Unspecified Chronic Active KARY Not Availa ble hypertension essential GELLENDER , DO (05459) (1 source.) hypertension Osteoarthritis Unspecified Chronic Active LIZET MAS Not Available (17 sources.) osteoarthritis (65513) , unspecified site Translations: [ PRIMARY OSTEOARTHRITIS , UNSPECIFIED SITE] Past or Other Problems Problem Normalized Date Last Normalized Normalized Provider Fa cility Classification Problem(s) Recorded Problem Problem Sta tus Duration External Accidental no information no information KARY N ot Available Injury - poisoning by GELLENDER , DO (86480) Poisoning (5 other opiates sources.) and related narcotics Translations: [ ACC POISN-BENZDIAZ TRANQ] Pancreatic Acute Episodic Completed KRAY Not Availabl e disorders (not pancreatitis GELLENDER , DO (49293) diabetes) (1 source.) Spondylosis; Dorsalgia, Episodic Completed ONEMÍ RAPHAEL [facility] Via intervertebral unspecified MD Jane disc [facility] - disorders; [facility] other back (96061) problems (7 sources.) Other Gastroparesis Episodic Completed KARY Not Avai lable disorders of GELLENDER , DO (33194) stomach and duodenum (1 source.) External Home accidents no information no information KARY Not Available Injury - Place GELLENDER , DO (95454) of occurrence (3 sources.) Noninfectious Other and Episodic Completed KARY Not Avai lable gastroenteriti unspecified GELLENDER , DO (78103) s (1 source.) noninfectious gastroenteriti s and colitis Nonspecific Other chest Episodic Completed PITER PIERRE Via chest pain (3 pain MD Jane sources.) [facility] (62211) Residual Patient's Episodic Completed NOEMÍ RAPHAEL [facility] Via codes; ilene Jane unclassified noncompliance Hospital - (7 sources.) with [facility] medication (72267) regimen Other Personal Episodic Completed LIZET MAS Not Availab le gastrointestin history of (47481) al disorders other diseases (11 sources.) of the digestive system Nausea and Vomiting, no information no information PITER PIERRE Via vomiting (3 unspecified MD Jane sources.) [facility] () Procedures Procedure Normalized Procedure Procedure Result Performer Facility Date 12-27-2019 INSERTION OF no information no name [facility] Via risti ENDOTRACHEAL AIRWAY [facility] INTO TR (44889) 12-27-2019 RESPIRATORY no information no name [facility] Via [facility] isti VENTILATION, 24-96 [facility] CONSECUTI (27681) 12-27-2019 RESPIRATORY no information no name [facility] Via [facility] isti VENTILATION, LESS THAN [facility] 24 CO ([address]178) Immunizations The data below is from unstructured sources No Known Immunizations Results The data below is from unstructured sources No Results Vital Signs The data below is from unstructured sources Vital Response Date/Time Temperature (Fahrenheit) 98 degrees F (97.6 - 99.5) 2016 3:40pm Temperature (Calculated Celsius) 36. 6696 degrees C (36.4 - 37.5) 2016 3:40pm Temperature Source Tympanic 2016 3:40pm Pulse Rate (adult) 127 bpm (60 - 90) 2016 3:40pm Respiratory Rate 18 bpm (12 - 24) 2016 3:40pm O2 Sat by Pulse Oximetry 98 % (88 - 100) 2016 3:40pm Blood Pressure 135/106 mm Hg 2016 3:40pm Blood Pressure Mean 116 mm Hg 2016 3:40pm Pain Pain Intensity 0 2015 3:40pm Height (Feet) 5 feet 3:40pm Height (Inches) 4 inches 2016 3:40pm Height (Calculated Centimeters) 162. 689477 cm 2016 3:40pm Weight (Pounds) 175 pounds 2016 3:40pm Weight (Calculated Kilograms) 79.378 666 kilograms 2016 3:40pm Height 5 ft 4 in Weight 175 lb Body Mass Index 30.0 kg/m^2 Vital Response Date/Time Temperature (Fahrenheit) 97.1 degree s F (97.6 - 99.5) Temperature (Calculated Celsius) 36. 27717 degrees C (36.4 - 37.5) Temperature Source Temporal Pulse Rate (adult) 96 bpm (60 - 90) Respiratory Rate 20 bpm (12 - 24) O2 Sat by Pulse Oximetry 100 % (88 - 100) Blood Pressure 113/74 mm Hg Pain Pain Intensity 0 Height (Feet) 5 feet Height (Inches) 3.00 inches Height (Calculated Centimeters) 160. 266883 cm Weight (Pounds) 188 pounds Weight (Ounces) 0.0 oz Weight (Calculated Grams) 24739.366 gm Weight (Calculated Kilograms) 85.275 366 kilograms Calculated BMI 33.30 Vital Response Date/Time Temperature (Fahrenheit) 97.3 degree s F (97.6 - 99.5) 07/22/2017 7:27pm Temperature (Calculated Celsius) 36. 67165 degrees C (36.4 - 37.5) 07/22/2017 7:27pm Temperature Source Temporal 07/22/2017 7:27pm Pulse Rate (adult) 115 bpm (60 - 90) 07/22/2017 7:27pm Respiratory Rate 24 bpm (12 - 24) 07/22/2017 7:27pm O2 Sat by Pulse Oximetry 97 % (88 - 100) 07/22/2017 7:27pm Blood Pressure 178/120 mm Hg 07/22/2017 7:27pm Blood Pressure Mean 139 mm Hg 07/22/2017 7:27pm Pain Numeric Pain Scale 8 7:27pm Height (Feet) 5 feet 03/2017 7:27pm Height (Inches) 5.00 inches 07/22/2017 7:27pm Height (Calculated Centimeters) 165. 966911 cm 07/22/2017 7:27pm Height Method Stated 03/2017 7:27pm Weight (Pounds) 205 pounds 07/22/2017 7:27pm Weight (Calculated Kilograms) 92.986 437 kilograms 07/22/2017 7:27pm Weight Method Stated 03/2017 7:27pm Capillary Refill Capillary Refill Less Than 3 Seconds 07/22/2017 7:27pm Height 5 ft 5 in 017 7:27pm Weight 205 lb 07/22/2017 7:27pm Body Mass Index 34.1 kg/m^2 07/22/2017 7:27pm Blood pressure systolic 144 mmHg 2017-01-07 Blood pressure diastolic 69 mmHg 2017-01-07 Blood pressure systolic 144 mmHg 2017-01-07 Blood pressure diastolic 69 mmHg 2017-01-07 Interventions No Information Plan of Treatment The data below is from unstructured sources Discharge Date 02/28/16 6:19pm Disposition 01 HOME, SELF-CARE Condition at Discharge Stable Instructions/Education Provided Dehy dration (ED) Methamphetamine Abuse (ED) Prescriptions See Medication Section Referrals KARY ROWE [facility] Physician Additional Instructions/Education Al l discharge instructions reviewed with patient and/or family. Voiced understanding. Drink plenty of fluids. You're cleared for incarceration. Follow-up with Dr. Rowe after incarceration. Discharge Date 05/11/15 2:00pm Disposition 30 STILL A PATIENT Instructions/Education Provided ALCO HOL AND SUBSTANCE ABUSE Schizophrenia (DC) Forms Provided PDI Medical Prescriptions See Medications Sectio n Referrals (Unspecified) Reason(s) for Referral: FOLLOW UP WITH DR. ROWE ON FridayApril AT 3:00PM Additional Instructions/Education PL EASE FOLLOW UP WITH DR. ROWE AT 3PM ON FridayApril Discharge Date 07/22/17 11:17pm Disposition 01 HOME, SELF-CARE Condition at Discharge Stable Instructions/Education Provided NO I NSTRUCTIONS GIVEN Prescriptions See Medication Section Referrals KARY ROWE DO Order Date: Primary Care Physician Address: [facility] [place] [phone] Additional Instructions/Education 1. Follow-up with Dr. Dr. Rowe 2. Return to ER for any concerns 3. Activity Details Follow Up prn Reason:hygiene/mackenzie Activity Details Follow Up prn Reason:hygiene/mackenzie Goals No Information Social History No Information Functional Status The data below is from unstructured sources Query Response Date Samir rded Patient Orientation Unable to Assess May 11, 2015 4:35pm Comprehension Ability Understands Co ncepts May 11, 2015 12:00pm Mental Status No Information Encounters Encounter Normalized Encounter Encounter Diagnosis Care Provi sandy Organization Date Type 12-26-2019 Emergency department no information AICHA HAYDEN MD (no [facility] patient visit phone) [facility] (no phone) 11-19-2019 Emergency department no information no name no organization name - patient visit 11-19-2019 06-27-2019 Emergency department no information no name no organization name patient visit 03-04-2012 Emergency department no information no name no organization name - patient visit 03-04-2012 12-26-2019 Evaluation and no information NOEMÍ RAPHAEL MD (no [facility] - management of phone) [facility] 01-01-2020 inpatient (no phone) 06-27-2019 Evaluation and no information no name no organ ization name - management of 06-30-2019 inpatient 06-27-2019 Evaluation and no information no name no organ ization name - management of 06-30-2019 inpatient 05-11-2015 Evaluation and no information no name no organ ization name - management of 05-11-2015 inpatient 01-01-2013 Evaluation and no information no name no organ ization name - management of 01-04-2013 inpatient 07-23-2018 Patient encounter no information no name no or ganization name 04-15-2018 Patient encounter no information no name no or ganization name 08-27-2017 Patient encounter no information no name no or ganization name 06-14-2016 Patient encounter no information no name no or ganization name 04-09-2016 Patient encounter no information no name no or ganization name 03-15-2016 Patient encounter no information no name no or ganization name 12-12-2015 Patient encounter no information no name no or ganization name 02-03-2015 Patient encounter no information no name no or ganization name 11-08-2014 Patient encounter no information no name no or ganization name 08-09-2014 Patient encounter no information no name no or ganization name - 11-07-2014 07-15-2014 Patient encounter no information no name no or ganization name 05-12-2014 Patient encounter no information no name no or ganization name 03-09-2014 Patient encounter no information no name no or ganization name 11-25-2013 Patient encounter no information no name no or ganization name - 02-23-2014 09-17-2013 Patient encounter no information no name no or ganization name 08-26-2013 Patient encounter no information no name no or ganization name 08-25-2013 Patient encounter no information no name no or ganization name 08-19-2013 Patient encounter no information no name no or ganization name 03-16-2013 Patient encounter no information no name no or ganization name 12-15-2012 Patient encounter no information no name no or ganization name - 03-15-2013 12-26-2019 Patient encounter no information NOEMÍ RAPHAEL MD (no [facility] - procedure phone) [facility] 01-01-2020 (no phone) 11-19-2019 Patient encounter no information no name no or ganization name procedure 06-27-2019 Patient encounter no information no name no or ganization name - procedure 06-30-2019 01-05-2019 Patient encounter no information no name no or ganization name procedure 12-01-2018 Patient encounter no information no name no or ganization name procedure 05-29-2012 Patient encounter no information no name no or ganization name - procedure 06-02-2012 04-27-2012 Patient encounter no information no name no or ganization name procedure 01-20-2012 Patient encounter no information no name no or ganization name - procedure 02-06-2012 Medical Equipment No Information Payers No Information Advance Directives Directive Response Recor ded Date/Time Advance Directives No 3:50pm Health Care Power of Flower Maker No 02/28/16 3:50pm Organ Donor No 02/28/16 3:50pm Resuscitation Status Full Code 02/28/16 3:50pm Directive Response Recor ded Date/Time Advance Directives No 1:07am Health Care Power of Flower Maker No 05/11/15 1:07am Organ Donor No 05/11/15 1:07am Resuscitation Status Full Code 05/11/15 1:07am Directive Response Recor ded Date/Time Advance Directives No 6:00am Health Care Power of Flower Maker No 01/01/13 6:00am Organ Donor No 01/01/13 6:00am Directive Response Recor ded Date/Time Advance Directives No 7:27pm Health Care Power of Flower Maker No 07/22/17 7:27pm Organ Donor No 07/22/17 7:27pm Resuscitation Status Full Code 07/22/17 7:27pm Discharge Instructions No hospital discharge instructions.No hospital discharge instructions.No hospital discharge instructions.No hospital discharge instruction information available. Additional Source Comments This clinical document has been generated using [employer] software that has been certified by the Office of the National Coordinator for Health Information Technology (ONC 15.99.04.3023.Diam.31.00.0.013981) and the National Committee for Rn Outpatient Surgery (NCQA, as an eMeasure certified technology). FOR RECORDS PERTAINING TO PATIENTS WHO ARE OR HAVE BEEN ENROLLED IN A CHEMICAL D EPENDENCY/SUBSTANCE ABUSE PROGRAM, SOME INFORMATION MAY BE OMITTED. This clinica l summary was aggregated from multiple sources. Caution should be exercised in using it in the provision of clinical care. This summary normalizes information from multiple sources, and as a consequence, information in this document may ma terially change the coding, format and clinical context of patient data. In ann tion, data may be omitted in some cases. CLINICAL DECISIONS SHOULD BE BASED ON T HE PRIMARY CLINICAL RECORDS. [employer] provides no warranty or guara ntee of the accuracy or completeness of information in this document.The followi ng information is based on time limited clinical information UNRECOGNIZED CONTENT PROVIDED BELOW FOR UNRECOGNIZED SECTION MEDICAL (GENERAL) HISTORY Type Description Date Medical History High blood pressure Medical History [place] Medical History Asthma Medical History Diabetes Medical History Pt takes Blood thinners Medical History Arthritits Medical History 9 chronic kidney diesease
--- OUTSIDE RECORDS SUMMARY | 2020-05-03 21:45 | XMS REPORT | Clinical Summary ---
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
--- OUTSIDE RECORDS SUMMARY | 2020-05-03 21:47 | XMS REPORT | Continuity of Care Document ---
Author Organization Unknown Address Unknown Phone Unavailable Allergies Active Description Code Type Severity Reaction Onset Reported/Identified Relationship to Patient Clinical Status Yes ketorolac [id number] Drug Allergy Unknown N/A 10/05/2008 Yes codeine [id number] Drug Allergy Unknown TAKES ULTRAM AT 11/18/2008 Yes tramadol [id number] Drug Allergy Unknown N/A 11/02/2011 Yes Sulfa (Sulfonamide Antibiotics) [id number] Drug Allergy Unknown N/A 015 Medications There is no data. Problems Date Dx Coded Attending Type Code Diagnosis Diagnosed By 01/11/2011 Ot 716.90 ART HROPATHY NOS- UNSPEC 01/11/2011 Ot 787.03 VOM ITING ALONE 01/11/2011 Ot 789.00 ABD OMINAL PAIN, UNSPECIFIED SITE 02/03/2011 Ot 250.80 DI B W OTH SPEC MANIFEST, TYPE II OR UNS 02/03/2011 Ot 305.20 CAN NABIS ABUSE- UNSPEC 02/03/2011 Ot 305.50 OPI OID ABUSE- UNSPEC 02/03/2011 Ot 305.90 CHASIDY G ABUSE NEC- UNSPEC 02/03/2011 Ot V58.67 HE G-TERM (CURRENT) USE OF INSULIN 02/03/2011 Ot V58.69 OTH MED,LT,CURRENT USE 04/11/2011 Ot 346.90 WILLIAM SVETLANA UNSPECIFIED W/O INTRACT MGRN W/ 04/11/2011 Ot 784.0 HEAD ACHE 09/09/2011 Ot 825.25 FX METATARSAL- CLOSED 09/09/2011 Ot 959.7 LOWE R LEG INJURY NOS 09/09/2011 Ot E000.8 OTH ER EXTERNAL CAUSE STATUS 09/09/2011 Ot E849.0 ACC IDENT IN HOME 09/09/2011 Ot E885.9 FAL L FROM SLIPPING, TRIPPING, OR STUMBLI 11/06/2011 Ot 041.89 ANSON TERIAL INFECTION DUE TO OTHER SPECIFI 11/06/2011 Ot 250.00 DI B LONA WO COMPL, TYPE II OR UNSPEC TY 11/06/2011 Ot 272.4 HYPE RLIPIDEMIA NEC/NOS 11/06/2011 Ot 300.4 DYST HYMIC DISORDER 11/06/2011 Ot 401.9 HYPE RTENSION NOS 11/06/2011 Ot 453.41 ACU TE VENOUS EMBOLISM THROMBOSIS DEEP 11/06/2011 Ot 530.81 ESO PHAGEAL REFLUX 11/06/2011 Ot 593.9 MAGDALENO L URETERAL DIS NOS 11/06/2011 Ot 599.0 URIN TRACT INFECTION NOS 11/06/2011 Ot V45.89 POS TSURGICAL STATES NEC 11/06/2011 Ot V54.19 AFT [facility] TRAUM[facility] FX OTHER BON 02/06/2012 Ot 453.40 ACU TE VENOUS EMBOLISM THROMBOSIS UNSP 03/04/2012 Ot 346.90 WILLIAM SVETLANA UNSPECIFIED W/O INTRACT MGRN W/ 06/02/2012 Ot 453.40 ACU TE VENOUS EMBOLISM THROMBOSIS UNSP 01/04/2013 Ot 250.61 DI B W NEURO MANIFEST, TYPE I [JUVENILE 01/04/[address] COMMISSIONER USE DISORDER 01/04/2013 Ot 401.9 HYPE RTENSION NOS 01/04/2013 Ot 493.90 AST HMA, UNSPECIFIED 01/04/2013 Ot 536.3 SEAN ROPARESIS 01/04/2013 Ot 558.9 SALMA NF GASTROENTERIT NEC 01/04/2013 Ot 577.0 ACUT E PANCREATITIS 03/15/2013 Ot 453.40 ACU TE VENOUS EMBOLISM THROMBOSIS UNSP 02/23/2014 KARY ROWE [...] DO Ot 300.14 DISSOCIATIVE IDENTITY DISORDER 05/11/[address] KARY Basurto Ot 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 05/11/2015 [facility] CHASE, KARY Basurto Ot 458.9 HYPOTENSION NOS 05/11/[address] [facility] , KARY Basurto Ot 530.81 ESOPHAGEAL REFLUX [facility]/11/[facility] Bas[facility] Ot 584.9 ACUTE RENAL FAILURE, UNSPECIFIED 05/11/2015 [facility] Q[facility] DO Ot 714.0 RHEUMATOID ARTHRITIS 05/11/[address] [facility] , KARY Basurto Ot 780.97 ALTERED MENTAL STATUS 05/11/[address] [facility] , KARY Basurto Ot 965.09 POISONING-OPIATES NEC 05/11/2015 [facility], KARY Basurto Ot 969.4 POIS-BENZODIAZEPINE KUO 05/11/2015 [facility] CHASE Ot E849.0 ACCIDENT IN HOME 05/11/2015 [facility] DO Ot E850.2 ACC POISON-OPIATES NEC 05/11/2015 [facility], KARY Basurto Ot E853.2 ACC POISN-BENZDIAZ TRANQ 05/11/2015 [facility], KARY Basurto Ot V12.51 HX-VENOUS THROMBOSIS EMBOLISM 05/11/2015 [facility], KARY Basurto Ot V58.67 LONG-TERM (CURRENT) USE OF INSULIN 12/22/2015 SHEREE BLUNT, MED S Ot E11.29 12/22/2015 SHEREE BLUNT, MED S Ot E78.5 12/22/2015 SHEREE BLUNT, MED S Ot I12.9 12/22/2015 SHEREE BLUNT, MED S Ot N18.3 12/22/2015 SHEREE BLUNT, MED S Ot R80.9 2016 KUMAR BLUNT, SUZETTE Ortega Ot E86.0 DEHYDRATION 2016 KUMAR BLUNT, SUZETTE Ortega Ot F11.10 OPIOID ABUSE, UNCOMPLICATED 2016 KUMAR BLUNT, SUZETTE Ortega Ot F12.10 CANNABIS ABUSE, UNCOMPLICATED 2016 KUMAR BLUNT, SUZETTE Ortega Ot F15.10 OTHER STIMULANT ABUSE, UNCOMPLICATED 2016 [...] 791.0 2016 Ot 453.40 2016 SHEREE BLUNT, BARBARA Thibodeaux Ot 585.3 2016 SHEREE BLUNT, BARBARA Thibodeaux Ot 250.40 2016 SHEREE BLUNT, BARBARA Thibodeaux Ot 272.4 2016 SHEREE BLUNT, BARBARA Thibodeaux Ot 585.2 2016 SHEREE BLUNT, BARBARA Thibodeaux Ot 791.0 2016 KARY ROWE DO Ot V76.12 2016 KARY ROWE DO Ot 611.72 2016 SHEREE BLUNT, AHMED S Ot 250.01 2016 SHEREE BLUNT, MED [...] MED S Ot 585.2 2016 SHEREE BLUNT, [facility] S Ot 791.0 2016 NATALIIA VAZQUEZ DO Ot 250.03 2016 KARY ROWE DO Ot 453.40 2016 Ot 250.03 2016 Ot 250.41 2016 Ot 272.4 2016 Ot 403.10 2016 Ot 583.81 2016 Ot 585.2 2016 Ot 791.0 2016 SHEREE BLUNT, MED S Ot E11.29 2016 SHEREE BLUNT, MED S Ot E78.5 2016 SHEREE BLUNT, MED S Ot I12.9 2016 SHEREE BLUNT, SAMANTHA S Ot N18.3 2016 SHEREE BLUNT, SAMANTHA S Ot R80.9 2016 Ot 250.01 2016 [...] 791.0 2016 Ot 453.40 2016 SHEREE BLUNT, BARBARA Thibodeaux Ot 585.3 2016 SHEREE BLUNT, SAMANTHA Thibodeaux Ot 250.40 2016 SHEREE BLUNT, SAMANTHA Thibodeaux Ot 272.4 2016 SHEREE BLUNT, SAMANTHA Thibodeaux Ot 585.2 2016 SHEREE BLUNT, SAMANTHA Thibodeaux Ot 791.0 2016 KARY ROWE DO Ot V76.12 2016 KARY ROWE DO Ot 611.72 2016 SHEREE BLUNT, BARBARA Thibodeaux Ot 250.01 2016 SHEREE BLUNT, SAMANTHA Thibodeaux Ot 272.4 2016 SHEREE BLUNT, MED S [...] S Ot R80.9 02/29/2016 KUMAR BLUNT, SUZETTE D Ot E86.0 02/29/2016 KUMAR BLUNT, SUZETTE D Ot F11.10 02/29/2016 KUMAR BLUNT, SUZETTE D Ot F12.10 02/29/2016 KUMAR BLUNT, SUZETTE D Ot F15.10 03/01/2016 KUMAR BLUNT, SUZETTE D Ot E86.0 DEHYDRATION 03/01/2016 KUMAR BLUNT, SUZETTE Ortega Ot F11.10 OPIOID ABUSE, UNCOMPLICATED 03/01/2016 SUZETTE HEATH MD Ot F12.10 CANNABIS ABUSE, UNCOMPLICATED 03/01/2016 KUMAR LBUNT, SUZETTE Ortega Ot F15.10 OTHER STIMULANT ABUSE, UNCOMPLICATED 03/05/2016 KUMAR BLUNT, SUZETTE Ortega Ot E86.0 DEHYDRATION 03/05/2016 SUZETTE HEATH MD Ot F11.10 OPIOID ABUSE, UNCOMPLICATED 03/05/2016 SUZETTE HEATH MD Ot F12.10 CANNABIS ABUSE, UNCOMPLICATED 03/05/2016 KUMAR BLUNT, SUZETTE Ortega Ot F15.10 OTHER STIMULANT ABUSE, UNCOMPLICATED 03/15/2016 Ot 250.01 DI B LONA WO COMPL, TYPE I [JUVENILE TYP 03/15/2016 Ot 272.4 HYPE RLIPIDEMIA NEC/NOS 03/15/2016 Ot 403.90 HYP TNSV CHR KID DIS, UNSPEC, W [facility] KD ST 03/15/2016 Ot 583.81 NEP HRITIS NOS IN OTH DIS 03/15/2016 Ot 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, STAGE II (MILD) 03/15/2016 Ot 791.0 PROT EINURIA 03/15/2016 Ot 250.01 DI B LONA WO COMPL, TYPE I [JUVENILE TYP 03/15/2016 Ot 272.4 HYPE RLIPIDEMIA NEC/NOS 03/15/2016 Ot 403.90 HYP TNSV CHR KID DIS, UNSPEC, W [facility] KD ST 03/15/2016 Ot 583.81 NEP HRITIS NOS IN OTH DIS 03/15/2016 Ot 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, STAGE II (MILD) 03/15/2016 Ot 791.0 PROT EINURIA 03/15/2016 Ot 250.41 DI B W RENAL MANIFEST, TYPE I [JUVENILE 03/15/2016 Ot 272.4 HYPE RLIPIDEMIA NEC/NOS 03/15/2016 Ot 403.90 HYP TNSV CHR KID DIS, UNSPEC, W [facility] 03/15/2016 Ot 583.81 NEP HRITIS NOS IN OTH DIS 03/15/2016 Ot 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, STAGE II (MILD) 03/15/2016 Ot 791.0 PROT EINURIA 03/15/2016 Ot 250.41 DI B W RENAL MANIFEST, TYPE I [JUVENILE 03/15/2016 Ot 272.4 HYPE RLIPIDEMIA NEC/NOS 03/15/2016 Ot 403.90 HYP TNSV CHR KID DIS, UNSPEC, W [facility]R [facility] 03/15/2016 Ot 583.81 NEP HRITIS NOS IN OTH DIS 03/15/2016 Ot 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, STAGE II (MILD) 03/15/2016 Ot 791.0 PROT EINURIA 03/15/2016 Ot 250.01 DI B LONA WO COMPL, TYPE I [JUVENILE TYP 03/15/2016 Ot 272.4 HYPE RLIPIDEMIA NEC/NOS 03/15/2016 Ot 403.10 HYP TNSV CHR KID DIS, BENIGN, W CHR [facility] 03/15/2016 Ot 583.81 NEP HRITIS NOS IN OTH DIS 03/15/2016 Ot 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, STAGE II (MILD) 03/15/2016 Ot 791.0 PROT EINURIA 03/15/2016 Ot 250.01 DI B LONA WO COMPL, TYPE I [JUVENILE TYP 03/15/2016 Ot 272.4 HYPE RLIPIDEMIA NEC/NOS 03/15/2016 Ot 403.10 HYP TNSV CHR KID DIS, BENIGN, W CHR KD ST 03/15/2016 Ot 583.81 NEP HRITIS NOS IN OTH DIS 03/15/2016 Ot 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, STAGE II (MILD) 03/15/2016 Ot 791.0 PROT EINURIA 03/15/2016 Ot 250.40 DI B W RENAL MANIFEST, TYPE II OR UNSPEC 03/15/2016 Ot 272.4 HYPE RLIPIDEMIA NEC/NOS 03/15/2016 Ot 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, STAGE II (MILD) 03/15/2016 Ot 791.0 PROT EINURIA 03/15/2016 Ot 453.40 ACU TE VENOUS EMBOLISM THROMBOSIS UNSP 03/15/2016 SHEREE BLUNT, BARBARA Thibodeaux Ot 585.3 CHRONIC KIDNEY DISEASE, STAGE III (MODER 03/15/2016 SHEREE BLUNT, BARBARA Thibodeaux Ot 250.40 DIAB W RENAL MANIFEST, TYPE II OR UNSPEC 03/15/2016 SHEREE BLUNT, BARBARA Thibodeaux Ot 272.4 HYPERLIPIDEMIA NEC/NOS 03/15/2016 SHEREE BLUNT, AHMED S Ot 585.2 CHRONIC KIDNEY DISEASE, STAGE II (MILD) 03/15/2016 SHEREE BLUNT, AHMED S Ot 791.0 PROTEINURIA 03/15/2016 KARY ROWE DO Ot V76.12 OTH SCREEN MAMMO-MALIGN NEOPLASM OF GILMAR 03/15/2016 KARY ROWE DO Ot 611.72 LUMP OR MASS IN BREAST 03/15/2016 SHEREE BLUNT, AHMED S Ot 250.01 DIAB LONA WO COMPL, TYPE I [JUVENILE TYP 03/15/2016 SHEREE BLUNT, AHMED S Ot 272.4 HYPERLIPIDEMIA NEC/NOS 03/15/2016 SHEREE BLUNT, AHMED S Ot 403.10 HYPTNSV [facility] KID DIS, BENIGN, W CHR [facility] 03/15/2016 SHEREE BLUNT, AHMED S Ot 583.81 NEPHRITIS NOS IN OTH DIS 03/15/2016 SHEREE BLUNT, AHMED S Ot 585.2 CHRONIC KIDNEY DISEASE, STAGE II (MILD) 03/15/2016 SHEREE BLUNT, AHMED S Ot 791.0 PROTEINURIA 03/15/2016 VAZQUEZ , NATALIIA L Ot 250.03 DIAB LONA WO COMPL, TYPE I [JUVENILE TYP 03/15/2016 SHEREE BLUNT, AHMED S Ot 250.01 DIAB LONA WO COMPL, TYPE I [JUVENILE TYP 03/15/2016 SHEREE BLUNT, AHMED S Ot 272.4 HYPERLIPIDEMIA NEC/NOS 03/15/2016 SHEREE BLUNT, AHMED S Ot 403.10 HYPTNSV [facility] KID DIS, BENIGN, W CHR KD ST 03/15/2016 SHEREE BLUNT, AHMED S Ot 583.81 NEPHRITIS NOS IN OTH DIS 03/15/2016 SHEREE BLUNT, AHMED S Ot 585.2 CHRONIC KIDNEY DISEASE, STAGE II (MILD) 03/15/2016 SHEREE BLUNT, AHMED S Ot 791.0 PROTEINURIA 03/15/2016 VAZQUEZ DO, NATALIIA L Ot 250.03 DIAB LONA WO COMPL, TYPE I [JUVENILE TYP 03/15/2016 KARY ROWE DO Ot 453.40 ACUTE VENOUS EMBOLISM THROMBOSIS UNSP 03/15/2016 Ot 250.03 DI B LONA WO COMPL, TYPE I [JUVENILE TYP 03/15/2016 Ot 250.41 DI B W RENAL MANIFEST, TYPE I [JUVENILE 03/15/2016 Ot 272.4 HYPE RLIPIDEMIA NEC/NOS 03/15/2016 Ot 403.10 HYP TNSV CHR KID DIS, BENIGN, W CHR [facility] 03/15/2016 Ot 583.81 NEP HRITIS NOS IN OTH DIS 03/15/2016 Ot 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, STAGE II (MILD) 03/15/2016 Ot 791.0 PROT EINURIA 03/15/2016 SHEREE BLUNT, BARBARA S Ot E11.29 TYPE 2 DIABETES MELLITUS W H DIABETIC 03/15/2016 SHEREE BLUNT, FAIZAMED S Ot E78.5 HYPERLIPIDEMIA, UNSPECIFIED 03/15/2016 SHEREE BLUNT, FAIZAMED S Ot I12.9 HYPERTENSIVE CHRONIC KIDNEY DISEASE W ST 03/15/2016 SHEREE BLUNT, BARBARA S Ot N18.3 CHRONIC KIDNEY DISEASE, STAGE 3 (MODERAT 03/15/2016 SHEREE BLUNT, FAIZAMED S Ot R80.9 PROTEINURIA, UNSPECIFIED 03/18/2016 SHEREE BLUNT, FAIZAMED S Ot E11.21 TYPE 2 DIABETES MELLITUS WITH DIABETIC N 03/18/2016 SHEREE BLUNT, BARBARA S Ot E11.22 TYPE 2 DIABETES MELLITUS W DIABETIC TALENT COORDINATOR 03/18/2016 SHEREE BLUNT, BARBARA S Ot E78.5 HYPERLIPIDEMIA, UNSPECIFIED 03/18/2016 SHEREE BLUNT, BARBARA S Ot I12.9 HYPERTENSIVE CHRONIC KIDNEY DISEASE W ST 03/18/2016 SHEREE BLUNT, FAIZAMED S Ot N18.2 CHRONIC KIDNEY DISEASE, STAGE 2 (MILD) 03/18/2016 SHEREE BLUNT, FAIZAMED S Ot R80.9 PROTEINURIA, UNSPECIFIED 03/18/2016 SHEREE BLUNT, AHMED S Ot Z79.899 OTHER SOIL SCIENTIST (CURRENT) DRUG THERAPY 03/26/2016 SHEREE BLUNT, BARBARA S Ot E11.21 TYPE 2 DIABETES MELLITUS WITH DIABETIC N 03/26/2016 SHEREE BLUNT, BARBARA S Ot E11.22 TYPE 2 DIABETES MELLITUS W DIABETIC TALENT COORDINATOR 03/26/2016 SHEREE BLUNT, BARBARA S Ot E78.5 HYPERLIPIDEMIA, UNSPECIFIED 03/26/2016 SHEREE BLUNT, FAIZASAMANTHA S Ot I12.9 HYPERTENSIVE CHRONIC KIDNEY DISEASE W ST 03/26/2016 SHEREE BLUNT, BARBARA S Ot N18.2 CHRONIC KIDNEY DISEASE, STAGE 2 (MILD) 03/26/2016 SHEREE BLUNT, FAIZASAMANTHA S Ot R80.9 PROTEINURIA, UNSPECIFIED 03/26/2016 SHEREE BLUNT, BARBARA S Ot Z79.899 OTHER SKILLED NURSING (CURRENT) DRUG THERAPY 04/10/2016 VAZQUEZ DO, NATALIIA L Ot E10.65 TYPE 1 DIABETES MELLITUS WITH HYPERGLYCE 04/10/2016 VAZQUEZ DO, NATALIIA L Ot E78.5 HYPERLIPIDEMIA, UNSPECIFIED 04/19/2016 VAZQUEZ DO, NATALIIA L Ot E10.65 TYPE 1 DIABETES MELLITUS WITH HYPERGLYCE 04/19/2016 VAZQUEZ DO, NATALIIA L Ot E78.5 HYPERLIPIDEMIA, UNSPECIFIED 06/14/2016 Ot 250.01 DI B LONA WO COMPL, TYPE I [JUVENILE TYP 06/14/2016 Ot 272.4 HYPE RLIPIDEMIA NEC/NOS 06/14/2016 Ot 403.90 HYP TNSV CHR KID DIS, UNSPEC, W CHR KD ST 06/14/2016 Ot 583.81 NEP HRITIS NOS IN OTH DIS 06/14/2016 Ot 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, STAGE II (MILD) 06/14/2016 Ot 791.0 PROT EINURIA 06/14/2016 Ot 250.41 DI B W RENAL MANIFEST, TYPE I [JUVENILE 06/14/2016 Ot 272.4 HYPE RLIPIDEMIA NEC/NOS 06/14/2016 Ot 403.90 HYP TNSV CHR KID DIS, UNSPEC, W CHR KD ST 06/14/2016 Ot 583.81 NEP HRITIS NOS IN OTH DIS 06/14/2016 Ot 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, STAGE II (MILD) 06/14/2016 Ot 791.0 PROT EINURIA 06/14/2016 Ot 250.41 DI B W RENAL MANIFEST, TYPE I [JUVENILE 06/14/2016 Ot 272.4 HYPE RLIPIDEMIA NEC/NOS 06/14/2016 Ot 403.90 HYP TNSV CHR KID DIS, UNSPEC, W CHR KD [facility] 06/14/2016 Ot 583.81 NEP HRITIS NOS IN OTH DIS 06/14/2016 Ot 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, STAGE II (MILD) 06/14/2016 Ot 791.0 PROT EINURIA 06/14/2016 Ot 250.01 DI B LONA WO COMPL, TYPE I [JUVENILE TYP 06/14/2016 Ot 272.4 HYPE RLIPIDEMIA NEC/NOS 06/14/2016 Ot 403.10 HYP TNSV CHR KID DIS, BENIGN, W CHR KD ST 06/14/2016 Ot 583.81 NEP HRITIS NOS IN OTH DIS 06/14/2016 Ot 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, STAGE II (MILD) 06/14/2016 Ot 791.0 PROT EINURIA 06/14/2016 Ot 250.01 DI B LONA WO COMPL, TYPE I [JUVENILE TYP 06/14/2016 Ot 272.4 HYPE RLIPIDEMIA NEC/NOS 06/14/2016 Ot 403.10 HYP TNSV CHR KID DIS, BENIGN, W CHR KD ST 06/14/2016 Ot 583.81 NEP HRITIS NOS IN OTH DIS 06/14/2016 Ot 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, STAGE II (MILD) 06/14/2016 Ot 791.0 PROT EINURIA 06/14/2016 Ot 250.40 DI B W RENAL MANIFEST, TYPE II OR UNSPEC 06/14/2016 Ot 272.4 HYPE RLIPIDEMIA NEC/NOS 06/14/2016 Ot 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, STAGE II (MILD) 06/14/2016 Ot 791.0 PROT EINURIA 06/14/2016 Ot 453.40 ACU TE VENOUS EMBOLISM THROMBOSIS UNSP 06/14/2016 SHEREE BLUNT, BARBARA S Ot 585.3 CHRONIC KIDNEY DISEASE, STAGE III (MODER 06/14/2016 SHEREE BLUNT, BARBARA S Ot 250.40 DIAB W RENAL MANIFEST, TYPE II OR UNSPEC 06/14/2016 SHEREE BLUNT, BARBARA S Ot 272.4 HYPERLIPIDEMIA NEC/NOS 06/14/2016 SHEREE BLUNT, BARBARA S Ot 585.2 CHRONIC KIDNEY DISEASE, STAGE II (MILD) 06/14/2016 SHEREE BLUNT, BARBARA S Ot 791.0 PROTEINURIA 06/14/2016 KARY ROWE DO Ot V76.12 OT SCREEN MAMMO-MALIGN NEOPLASM OF GILMAR 06/14/2016 KARY ROWE DO Ot 611.72 LUMP OR MASS IN BREAST 06/14/2016 SHEREE BLUNT, AHMED S Ot 250.01 DIAB LONA WO COMPL, TYPE I [JUVENILE TYP 06/14/2016 SHEREE BLUNT, AHMED S Ot 272.4 HYPERLIPIDEMIA NEC/NOS 06/14/2016 SHEREE BLUNT, AHMED S Ot 403.10 HYPTNSV [facility] KID DIS, BENIGN, W CHR KD ST 06/14/2016 SHEREE BLUNT, AHMED S Ot 583.81 NEPHRITIS NOS IN OTH DIS 06/14/2016 SHEREE BLUNT, AHMED S Ot 585.2 CHRONIC KIDNEY DISEASE, STAGE II (MILD) 06/14/2016 SHEREE BLUNT, AHMED S Ot 791.0 PROTEINURIA 06/14/2016 NATALIIA VAZQUEZ DO L Ot 250.03 DIAB LONA WO COMPL, TYPE I [JUVENILE TYP 06/14/2016 SHEREE BLUNT, AHMED S Ot 250.01 DIAB LONA WO COMPL, TYPE I [JUVENILE TYP 06/14/2016 SHEREE BLUNT, AHMED S Ot 272.4 HYPERLIPIDEMIA NEC/NOS 06/14/2016 SHEREE BLUNT, AHMED S Ot 403.10 HYPTNSV [facility] KID DIS, BENIGN, W CHR KD ST 06/14/2016 SHEREE BLUNT, AHMED S Ot 583.81 NEPHRITIS NOS IN OTH DIS 06/14/2016 SHEREE BLUNT, AHMED S Ot 585.2 CHRONIC KIDNEY DISEASE, STAGE II (MILD) 06/14/2016 SHEREE BLUNT, AHMED S Ot 791.0 PROTEINURIA 06/14/2016 MARJORIE VAZQUEZ DOISON L Ot 250.03 DIAB LONA WO COMPL, TYPE I [JUVENILE TYP 06/14/2016 KARY ROWE DO Ot 453.40 ACUTE VENOUS EMBOLISM THROMBOSIS UNSP 06/14/2016 Ot 250.03 DI B LONA WO COMPL, TYPE I [JUVENILE TYP 06/14/2016 Ot 250.41 DI B W RENAL MANIFEST, TYPE I [JUVENILE 06/14/2016 Ot 272.4 HYPE RLIPIDEMIA NEC/NOS 06/14/2016 Ot 403.10 HYP TNSV CHR KID DIS, BENIGN, W CHR KD ST 06/14/2016 Ot 583.81 NEP HRITIS NOS IN OTH DIS 06/14/2016 Ot 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, STAGE II (MILD) 06/14/2016 Ot 791.0 PROT EINURIA 06/14/2016 SHEREE BLUNT, FAIZAMED S Ot E11.29 TYPE [...] E11.22 TYPE 2 DIABETES MELLITUS W DIABETIC TALENT COORDINATOR 06/14/2016 SHEREE BLUNT, AHMED S Ot E78.5 HYPERLIPIDEMIA, UNSPECIFIED 06/14/2016 SHEREE BLUNT, AHMED S Ot I12.9 HYPERTENSIVE CHRONIC KIDNEY DISEASE W ST 06/14/2016 SHEREE BLUNT, AHMED S Ot N18.2 CHRONIC KIDNEY DISEASE, STAGE 2 (MILD) 06/14/2016 SHEREE BLUNT, AHMED S Ot R80.9 PROTEINURIA, UNSPECIFIED 06/14/2016 SHEREE BLUNT, AHMED S Ot Z79.899 OTHER SKILLED NURSING (CURRENT) DRUG THERAPY 06/14/2016 GEORGE CHASE, NATALIIA L Ot E10.65 TYPE 1 DIABETES MELLITUS WITH HYPERGLYCE 06/14/2016 GEORGE CHASE, NATALIIA L Ot E78.5 HYPERLIPIDEMIA, UNSPECIFIED 06/19/2016 GEORGE DO, NATALIIA L Ot E10.65 TYPE 1 DIABETES MELLITUS WITH HYPERGLYCE 06/19/2016 GEORGE CHASE, NATALIIA L Ot E78.5 HYPERLIPIDEMIA, UNSPECIFIED 06/27/2016 GEORGE CHASE, NATALIIA L Ot E10.65 TYPE 1 DIABETES MELLITUS WITH HYPERGLYCE 06/27/2016 NATALIIA VAZQUEZ DO Ot E78.5 HYPERLIPIDEMIA, UNSPECIFIED 07/07/2017 Ot 250.01 DI B LONA WO COMPL, TYPE I [JUVENILE TYP 07/07/2017 Ot 272.4 HYPE RLIPIDEMIA NEC/NOS 07/07/2017 Ot 403.10 HYP TNSV CHR KID DIS, BENIGN, W CHR KD ST 07/07/2017 Ot 583.81 NEP HRITIS NOS IN OTH DIS 07/07/2017 Ot 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, STAGE II (MILD) 07/07/2017 Ot 791.0 PROT EINURIA 07/07/2017 Ot 250.40 DI B W RENAL MANIFEST, TYPE II OR UNSPEC 07/07/2017 Ot 272.4 HYPE RLIPIDEMIA NEC/NOS 07/07/2017 Ot 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, STAGE II (MILD) 07/07/2017 Ot 791.0 PROT EINURIA 07/07/2017 Ot 453.40 ACU TE VENOUS EMBOLISM THROMBOSIS UNSP 07/07/2017 SHEREE BLUNT, AHMED S Ot 585.3 CHRONIC KIDNEY DISEASE, STAGE III (MODER 07/07/2017 SHEREE BLUNT, FAIZAMED S Ot 250.40 DIAB W RENAL MANIFEST, TYPE II OR UNSPEC 07/07/2017 SHEREE BLUNT, AHMED S Ot 272.4 HYPERLIPIDEMIA NEC/NOS 07/07/2017 SHEREE BLUNT, AHMED S Ot 585.2 CHRONIC KIDNEY DISEASE, STAGE II (MILD) 07/07/2017 SHEREE BLUNT, AHMED S Ot 791.0 PROTEINURIA 07/07/2017 KARY ROWE DO Ot V76.12 OTH SCREEN MAMMO-MALIGN NEOPLASM OF GILMAR 07/07/2017 KARY ROWE DO Ot 611.72 LUMP OR MASS IN BREAST 07/07/2017 SHEREE BLUNT, AHMED S Ot 250.01 DIAB LONA WO COMPL, TYPE I [JUVENILE TYP 07/07/2017 SHEREE BLUNT, AHMED S Ot 272.4 HYPERLIPIDEMIA NEC/NOS 07/07/2017 SHEREE BLUNT, BARBARA S Ot 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, BENIGN, W CHR KD ST 07/07/2017 SHEREE BLUNT, BARBARA S Ot 583.81 NEPHRITIS NOS IN OTH DIS 07/07/2017 SHEREE BLUNT, AHMED S Ot 585.2 CHRONIC KIDNEY DISEASE, STAGE II (MILD) 07/07/2017 SHEREE BLUNT, AHMED S Ot 791.0 PROTEINURIA 07/07/2017 NATALIIA VAZQUEZ DO Ot 250.03 DIAB LONA WO COMPL, TYPE I [JUVENILE TYP 07/07/2017 SHEREE BLUNT, AHMED S Ot 250.01 DIAB LONA WO COMPL, TYPE I [JUVENILE TYP 07/07/2017 SHEREE BLUNT, AHMED S Ot 272.4 HYPERLIPIDEMIA NEC/NOS 07/07/2017 SHEREE BLUNT, AHMED S Ot 403.10 HYPTNSV [facility] KID DIS, BENIGN, W CHR KD ST 07/07/2017 SHEREE BLUNT, AHMED S Ot 583.81 NEPHRITIS NOS IN OTH DIS 07/07/2017 SHEREE BLUNT, AHMED S Ot 585.2 CHRONIC KIDNEY DISEASE, STAGE II (MILD) 07/07/2017 SHEREE BLUNT, AHMED S Ot 791.0 PROTEINURIA 07/07/2017 NATALIIA VAZQUEZ DO Ot 250.03 DIAB LONA WO COMPL, TYPE I [JUVENILE TYP 07/07/2017 KARY ROWE DO Ot 453.40 ACUTE VENOUS EMBOLISM THROMBOSIS UNSP 07/07/2017 Ot 250.03 DI B LONA WO COMPL, TYPE I [JUVENILE TYP 07/07/2017 Ot 250.41 DI B W RENAL MANIFEST, TYPE I [JUVENILE 07/07/2017 Ot 272.4 HYPE RLIPIDEMIA NEC/NOS 07/07/2017 Ot 403.10 HYP TNSV [facility] KID DIS, BENIGN, W CHR KD ST 07/07/2017 Ot 583.81 NEP HRITIS NOS IN OTH DIS 07/07/2017 Ot 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, STAGE II (MILD) 07/07/2017 Ot 791.0 PROT EINURIA 07/07/2017 SHEREE BLUNT, AHMED S Ot E11.29 TYPE 2 DIABETES MELLITUS W OTH DIABETIC 07/07/2017 SHEREE BLUNT, AHMED S Ot E78.5 HYPERLIPIDEMIA, UNSPECIFIED 07/07/2017 SHEREE BLUNT, BARBARA S Ot I12.9 HYPERTENSIVE CHRONIC KIDNEY DISEASE W ST 07/07/2017 SHEREE BLUNT, FAIZAMED S Ot N18.3 CHRONIC KIDNEY DISEASE, STAGE 3 (MODERAT 07/07/2017 SHEREE BLUNT, AHMED S Ot R80.9 PROTEINURIA, UNSPECIFIED 07/07/2017 SHEREE BLUNT, FAIZAMED S Ot E11.21 TYPE 2 DIABETES MELLITUS WITH DIABETIC N 07/07/2017 SHEREE BLUNT, FAIZAMED S Ot E11.22 TYPE 2 DIABETES MELLITUS W DIABETIC TALENT COORDINATOR 07/07/2017 SHEREE BLUNT, FAIZAMED S Ot E78.5 HYPERLIPIDEMIA, UNSPECIFIED 07/07/2017 SHEREE BLUNT, FAIZAMED S Ot I12.9 HYPERTENSIVE CHRONIC KIDNEY DISEASE W ST 07/07/2017 SHEREE BLUNT, AHMED S Ot N18.2 CHRONIC KIDNEY DISEASE, STAGE 2 (MILD) 07/07/2017 FAIZA BENTLEY MDMED S Ot R80.9 PROTEINURIA, UNSPECIFIED 07/07/2017 SHEREE BLUNT, AHMED S Ot Z79.899 OTHER SOIL SCIENTIST (CURRENT) DRUG THERAPY 07/07/2017 GEORGE CHASE, NATALIIA L Ot E10.65 TYPE 1 DIABETES MELLITUS WITH HYPERGLYCE 07/07/2017 GEORGE CHASE, NATALIIA L Ot E78.5 HYPERLIPIDEMIA, UNSPECIFIED 07/07/2017 GEORGE CHASE, NATALIIA L Ot E10.65 TYPE 1 DIABETES MELLITUS WITH HYPERGLYCE 07/07/2017 EGORGE CHASE, NATALIIA L Ot E78.5 HYPERLIPIDEMIA, UNSPECIFIED 07/22/2017 LIZET AMS GOGGLES ASSEMBLER Ot E11 .9 TYPE 2 DIABETES MELLITUS WITHOUT COMPLIC 07/22/2017 LIZET MAS GOGGLES ASSEMBLER Ot J45.909 UNSPECIFIED ASTHMA, UNCOMPLICATED 07/22/2017 LIZET MAS GOGGLES ASSEMBLER Ot K21 .9 GASTRO-ESOPHAGEAL REFLUX DISEASE WITHOUT 07/22/2017 LIZET MAS GOGGLES ASSEMBLER Ot M06 .9 RHEUMATOID ARTHRITIS, UNSPECIFIED 07/22/2017 LIZET MAS GOGGLES ASSEMBLER Ot M19.90 UNSPECIFIED OSTEOARTHRITIS, UNSPECIFIED 07/22/2017 LIZET MAS APRN Ot R10.31 RIGHT LOWER QUADRANT PAIN 07/22/2017 LIZET MAS GOGGLES ASSEMBLER Ot R11 .2 NAUSEA WITH VOMITING, UNSPECIFIED 07/22/2017 LIZET MAS APRN Ot R94 .5 ABNORMAL RESULTS OF LIVER FUNCTION STUDI 07/22/2017 LIZET MAS APRN Ot Z79.01 SOIL SCIENTIST (CURRENT) USE OF ANTICOAGULANT 07/22/2017 LIZET MAS APRN Ot Z79 .4 SKILLED NURSING (CURRENT) USE OF INSULIN 07/22/2017 LIZET MAS [...] ROWE DO Ot R73.9 HYPERGLYCEMIA, UNSPECIFIED 09/09/2017 KARY ROWE DO Ot R74.8 ABNORMAL LEVELS OF OTHER SERUM ENZYMES 04/15/2018 NATALIIA VAZQUEZ DO Ot E10.65 TYPE 1 DIABETES MELLITUS WITH HYPERGLYCE 04/15/2018 NATALIIA VAZQUEZ DO Ot N18.9 CHRONIC KIDNEY DISEASE, UNSPECIFIED 05/04/2018 NATALIIA VAZQUEZ DO Ot E10.65 TYPE 1 DIABETES MELLITUS WITH HYPERGLYCE 05/04/2018 NATALIIA VAZQUEZ DO Ot N18.9 CHRONIC KIDNEY DISEASE, UNSPECIFIED 07/23/2018 Ot 453.40 ACU TE VENOUS EMBOLISM THROMBOSIS UNSP 07/23/2018 SHEREE BLUNT, BARBARA [place]ibode[place] Ot 585.3 CHRONIC KIDNEY DISEASE, STAGE III (MODER 07/23/2018 SHEREE BLUNT, BARBARA S Ot 250.40 DIAB W RENAL MANIFEST, TYPE II OR UNSPEC 07/23/2018 BARBARA BENTLEY MD S Ot 272.4 HYPERLIPIDEMIA NEC/NOS 07/23/2018 SHEREE BLUNT, AHMED S Ot 585.2 CHRONIC KIDNEY DISEASE, STAGE II (MILD) 07/23/2018 SHEREE BLUNT, FAIZAMED S Ot 791.0 PROTEINURIA 07/23/2018 SOLEDAD KARY CHASE Ot V76.12 OTH SCREEN MAMMO-MALIGN NEOPLASM OF [place] 07/23/2018 SOL[place] KARY CHASE Ot 611.72 LUMP OR MASS IN BREAST 07/23/2018 SHEREE BLUNT, AHMED S Ot 250.01 DIAB LONA WO COMPL, TYPE I [JUVENILE TYP 07/23/2018 SHEREE BLUNT, AHMED S Ot 272.4 HYPERLIPIDEMIA NEC/NOS 07/23/2018 SHEREE BLUNT, AHMED S Ot 403.10 HYPTNSV [facility] KID DIS, BENIGN, W [facility] KD ST 07/23/2018 SHEREE BLUNT, AHMED S Ot 583.81 NEPHRITIS NOS IN OTH DIS 07/23/2018 SHEREE BLUNT, AHMED S Ot 585.2 CHRONIC KIDNEY DISEASE, STAGE II (MILD) 07/23/2018 SHEREE BLUNT, AHMED S Ot 791.0 PROTEINURIA 07/23/2018 VAZQUEZ DO, NATALIIA L Ot 250.03 DIAB LONA WO COMPL, TYPE I [JUVENILE TYP 07/23/2018 SHEREE BLUNT, AHMED S Ot 250.01 DIAB LONA WO COMPL, TYPE I [JUVENILE TYP 07/23/2018 SHEREE BLUNT, AHMED S Ot 272.4 HYPERLIPIDEMIA NEC/NOS 07/23/2018 SHEREE BLUNT, AHMED S Ot 403.10 HYPTNSV [facility] KID DIS, BENIGN, W CHR KD ST 07/23/2018 SHEREE BLUNT, AHMED S Ot 583.81 NEPHRITIS NOS IN OTH DIS 07/23/2018 SHEREE BLUNT, AHMED S Ot 585.2 CHRONIC KIDNEY DISEASE, STAGE II (MILD) 07/23/2018 SHEREE BLUNT, AHMED S Ot 791.0 PROTEINURIA 07/23/2018 VAZQUEZ DO, NATALIIA L Ot 250.03 DIAB LONA WO COMPL, TYPE I [JUVENILE TYP 07/23/2018 RAHGURWINDER DOKARY Ot 453.40 ACUTE VENOUS EMBOLISM THROMBOSIS UNSP 07/23/2018 Ot 250.03 DI B LONA WO COMPL, TYPE I [JUVENILE TYP 07/23/2018 Ot 250.41 DI B W RENAL MANIFEST, TYPE I [JUVENILE 07/23/2018 Ot 272.4 HYPE RLIPIDEMIA NEC/NOS 07/23/2018 Ot 403.10 HYP TNSV CHR KID DIS, BENIGN, W CHR KD ST 07/23/2018 Ot 583.81 NEP HRITIS NOS IN OTH DIS 07/23/2018 Ot 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, STAGE II (MILD) 07/23/2018 Ot 791.0 PROT EINURIA 07/23/2018 SHEREE BLUNT, FAIZAMED S Ot E11.29 TYPE 2 DIABETES MELLITUS W OTH DIABETIC 07/23/2018 SHEREE BLUNT, FAIZAMED S Ot E78.5 HYPERLIPIDEMIA, UNSPECIFIED 07/23/2018 SHEREE [...] E11.22 TYPE 2 DIABETES MELLITUS W DIABETIC TALENT COORDINATOR 07/23/2018 SHEREE BLUNT, AHMED S Ot E78.5 HYPERLIPIDEMIA, UNSPECIFIED 07/23/2018 SHEREE BLUNT, AHMED S Ot I12.9 HYPERTENSIVE CHRONIC KIDNEY DISEASE W ST 07/23/2018 SHEREE BLUNT, AHMED S Ot N18.2 CHRONIC KIDNEY DISEASE, STAGE 2 (MILD) 07/23/2018 SHEREE BLUNT, AHMED S Ot R80.9 PROTEINURIA, UNSPECIFIED 07/23/2018 SHEREE BLUNT, AHMED S Ot Z79.899 OTHER SOIL SCIENTIST (CURRENT) DRUG THERAPY 07/23/2018 MARJORIE VAZQUEZ DOISON L Ot E10.65 TYPE 1 DIABETES MELLITUS WITH HYPERGLYCE 07/23/2018 MARJORIE VAZQUEZ DOISON L Ot E78.5 HYPERLIPIDEMIA, UNSPECIFIED 07/23/2018 MARJORIE VAZQUEZ DOISON L Ot E10.65 TYPE 1 DIABETES MELLITUS WITH HYPERGLYCE 07/23/2018 VAZQUEZ DO, NATALIIA Arnold Ot E78.5 HYPERLIPIDEMIA, UNSPECIFIED 07/23/2018 VAZQUEZ DO, NATALIIA L Ot E10.65 TYPE 1 DIABETES MELLITUS WITH HYPERGLYCE 07/23/2018 RAHLENDER DO, KARY Basurto Ot R73.9 HYPERGLYCEMIA, UNSPECIFIED 07/23/2018 RAHLENDER DO, KARY Basurto Ot R74.8 ABNORMAL LEVELS OF OTHER SERUM ENZYMES 07/23/2018 GEORGE DO, NATALIIA Arnold Ot E10.65 TYPE 1 DIABETES MELLITUS WITH HYPERGLYCE 07/23/2018 VAZQUEZ DO, NATALIIA Arnold Ot N18.9 CHRONIC KIDNEY DISEASE, UNSPECIFIED 08/04/2018 RAHLENDER DO, KARY Basurto Ot M25.522 PAIN IN LEFT ELBOW 08/04/2018 SOLEDAD CHASE, KARY Basurto Ot M61.48 OTHER CALCIFICATION OF MUSCLE, OTHER SIT 12/01/2018 SHEREE BLUNT, BARBARA S Ot 585.3 CHRONIC KIDNEY DISEASE, STAGE III (MODER 12/01/2018 SHEREE BLUNT, FAIZAMED S Ot 250.40 DIAB W RENAL MANIFEST, TYPE II OR UNSPEC 12/01/2018 SHEREE BLUNT, BARBARA S Ot 272.4 HYPERLIPIDEMIA NEC/NOS 12/01/2018 SHEREE BLUNT, BARBARA S Ot 585.2 CHRONIC KIDNEY DISEASE, STAGE II (MILD) 12/01/2018 SHEREE BLUNT, FAIZAMED S Ot 791.0 PROTEINURIA 12/01/2018 SOLEDAD CHASEKARY Ot V76.12 OT SCREEN MAMMO-MALIGN NEOPLASM OF [place] 12/01/2018 SOLEDAD CHASEKARY Ot 611.72 LUMP OR MASS IN BREAST 12/01/2018 SHEREE BLUNT, AHMED S Ot 250.01 DIAB LONA WO COMPL, TYPE I [JUVENILE TYP 12/01/2018 SHEREE BLUNT, BARBARA S Ot 272.4 HYPERLIPIDEMIA NEC/NOS 12/01/2018 SHEREE BLUNT, BARBARA S Ot 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, BENIGN, W CHR KD ST 12/01/2018 BARBARA BENTLEY MD S Ot 583.81 NEPHRITIS NOS IN OTH DIS 12/01/2018 SHEREE BLUNT, AHSAMANTHA S Ot 585.2 CHRONIC KIDNEY DISEASE, STAGE II (MILD) 12/01/2018 SHEREE BLUNT, AHMED S Ot 791.0 PROTEINURIA 12/01/2018 NATALIIA VAZQUEZ DO Ot 250.03 DIAB LONA [...] BLUNT, AHMED S Ot 791.0 PROTEINURIA 12/01/2018 NATALIIA VAZQUEZ DO Ot 250.03 DIAB LONA WO COMPL, TYPE I [JUVENILE TYP 12/01/2018 KARY ROWE DO Ot 453.40 ACUTE VENOUS EMBOLISM THROMBOSIS UNSP 12/01/2018 Ot 250.03 DI B LONA WO COMPL, TYPE I [JUVENILE TYP 12/01/2018 Ot 250.41 DI B W RENAL MANIFEST, TYPE I [JUVENILE 12/01/2018 Ot 272.4 HYPE RLIPIDEMIA NEC/NOS 12/01/2018 Ot 403.10 HYP TNSV CHR KID DIS, BENIGN, W CHR KD ST 12/01/2018 Ot 583.81 NEP HRITIS NOS IN OTH DIS 12/01/2018 Ot 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, STAGE II (MILD) 12/01/2018 Ot 791.0 PROT EINURIA 12/01/2018 SHEREE BLUNT, AHMED S Ot E11.29 TYPE 2 DIABETES MELLITUS W [facility] DIABETIC 12/01/2018 SHEREE BLUNT, AHMED S Ot [...] E11.22 TYPE 2 DIABETES MELLITUS W DIABETIC TALENT COORDINATOR 12/01/2018 SHEREE BLUNT, FAIZAMED S Ot E78.5 HYPERLIPIDEMIA, UNSPECIFIED 12/01/2018 SHEREE BLUNT, AHMED S Ot I12.9 HYPERTENSIVE CHRONIC KIDNEY DISEASE W ST 12/01/2018 SHEREE BLUNT, AHMED S Ot N18.2 CHRONIC KIDNEY DISEASE, STAGE 2 (MILD) 12/01/2018 SHEREE BLUNT, AHMED S Ot R80.9 PROTEINURIA, UNSPECIFIED 12/01/2018 SHEREE BLUNT, AHMED S Ot Z79.899 OTHER SKILLED NURSING (CURRENT) DRUG THERAPY 12/01/2018 VAZQUEZ DO, NATALIIA L Ot E10.65 TYPE 1 DIABETES MELLITUS WITH HYPERGLYCE 12/01/2018 VAZQUEZ DO, NATALIIA L Ot E78.5 HYPERLIPIDEMIA, UNSPECIFIED 12/01/2018 VAZQUEZ DO, NATALIIA L Ot E10.65 TYPE 1 DIABETES MELLITUS WITH HYPERGLYCE 12/01/2018 VAZQUEZ DO, NATALIIA L Ot E78.5 HYPERLIPIDEMIA, UNSPECIFIED 12/01/2018 VZAQUEZ DO, NATALIIA L Ot E10.65 TYPE 1 DIABETES MELLITUS WITH HYPERGLYCE 12/01/2018 GELLENDER DO, KARY Sb Ot R73.9 HYPERGLYCEMIA, UNSPECIFIED 12/01/2018 GELLENDER DO, KARY Sb Ot R74.8 ABNORMAL LEVELS OF OTHER SERUM ENZYMES 12/01/2018 VAZQUEZ DO, NATALIIA L Ot E10.65 TYPE 1 DIABETES MELLITUS WITH HYPERGLYCE 12/01/2018 VAZQUEZ DO, NATALIIA L Ot N18.9 CHRONIC KIDNEY DISEASE, UNSPECIFIED 12/01/2018 GELLENDER DO, KARY Sb Ot M25.522 PAIN IN LEFT ELBOW 12/01/2018 GELLENDER DO, KARY Basurto Ot M61.48 OTHER CALCIFICATION OF MUSCLE, OTHER SIT 12/02/2018 VAZQUEZ DO, NATALIIA L Ot E10.65 TYPE 1 DIABETES MELLITUS WITH HYPERGLYCE 12/02/2018 VAZQUEZ DO, NATALIIA L Ot E10.65 TYPE 1 DIABETES MELLITUS WITH HYPERGLYCE 01/06/2019 NATALIIA VAZQUEZ DO Ot N18.9 CHRONIC KIDNEY DISEASE, UNSPECIFIED 06/28/2019 RTUDI SERRANO MD Ot D72.829 ELEVATED WHITE BLOOD CELL COUNT, UNSPECI 06/28/2019 TRUDI SERRANO MD Ot E10. 10 TYPE 1 DIABETES MELLITUS WITH KETOACIDOS 06/28/2019 TRUDI SERRANO MD Ot E10. 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 5 HYPERLIPIDEMIA, UNSPECIFIED 06/28/2019 TRUDI SERRANO MD Ot E86. 0 DEHYDRATION 06/28/2019 TRUDI SERRANO MD Ot E87. 2 ACIDOSIS 06/28/2019 TRUDI SERRANO MD Ot F17.210 NICOTINE DEPENDENCE, CIGARETTES, UNCOMPL 06/28/2019 TRUDI SERRANO MD Ot F60. 9 PERSONALITY DISORDER, UNSPECIFIED 06/28/2019 TRUDI SERRANO MD Ot J30. 2 OTHER SEASONAL ALLERGIC RHINITIS 06/28/2019 TRUDI SERRANO MD Ot J44. 9 CHRONIC OBSTRUCTIVE PULMONARY DISEASE, U 06/28/2019 TRUDI SERRANO MD Ot K21. 9 GASTRO-ESOPHAGEAL REFLUX DISEASE WITHOUT 06/28/2019 TRUDI SERRANO MD Ot M06. 9 RHEUMATOID ARTHRITIS, UNSPECIFIED 06/28/2019 TRUDI SERRANO MD Ot M19. 91 PRIMARY OSTEOARTHRITIS, UNSPECIFIED SITE 06/28/2019 TRUDI SERRANO MD Ot M54. 9 DORSALGIA, UNSPECIFIED 06/28/2019 TRUDI SERRANO MD Ot N17. 0 ACUTE KIDNEY FAILURE WITH TUBULAR NECROS 06/28/2019 TRUDI SERRANO MD, Ot N18. 9 CHRONIC KIDNEY DISEASE, UNSPECIFIED 06/28/2019 TRUDI SERRANO MD Ot R11. 10 VOMITING, UNSPECIFIED 06/28/2019 TRUDI SERRANO MD Ot Z79. 4 SKILLED NURSING (CURRENT) USE OF INSULIN 06/28/2019 TRUDI SERRANO MD, Ot Z86.718 PERSONAL HISTORY OF OTHER VENOUS THROMBO 06/28/2019 TRUDI SERRANO MD, Ot Z87. 11 PERSONAL HISTORY OF PEPTIC ULCER DISEASE 06/28/2019 TRUDI SERRANO MD, Ot Z87. 19 PERSONAL HISTORY OF OTHER DISEASES OF TH 06/28/2019 TRUDI SERRANO MD, Ot Z91. 14 PATIENT'S OTHER NONCOMPLIANCE WITH MEDIC 06/28/2019 TRUDI SERRANO MD, Ot Z95.828 PRESENCE OF OTHER VASCULAR IMPLANTS AND 06/29/2019 TRUDI SERRANO MD, Ot D72.829 ELEVATED WHITE BLOOD CELL COUNT, UNSPECI 06/29/2019 TRUDI SERRANO MD Ot E10. 10 TYPE 1 DIABETES MELLITUS WITH KETOACIDOS 06/29/2019 TRUDI SERRANO MD Ot E10. 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 5 HYPERLIPIDEMIA, UNSPECIFIED 06/29/2019 TRUDI SERRANO MD, Ot E86. 0 DEHYDRATION 06/29/2019 TRUDI SERRANO MD Ot E87. 2 ACIDOSIS 06/29/2019 TRUDI SERRANO MD Ot F17.210 NICOTINE DEPENDENCE, CIGARETTES, UNCOMPL 06/29/2019 TRUDI SERRANO MD Ot F60. 9 PERSONALITY DISORDER, UNSPECIFIED 06/29/2019 TRUDI SERRANO MD, Ot J30. 2 OTHER SEASONAL ALLERGIC RHINITIS 06/29/2019 TRUDI SERRANO MD, Ot J44. 9 CHRONIC OBSTRUCTIVE PULMONARY DISEASE, U 06/29/2019 TRUDI SERRANO MD, Ot K21. 9 GASTRO-ESOPHAGEAL REFLUX DISEASE WITHOUT 06/29/2019 TRUDI SERRANO MD, Ot M06. 9 RHEUMATOID ARTHRITIS, UNSPECIFIED 06/29/2019 TRUDI SERRANO MD, Ot M19. 91 PRIMARY OSTEOARTHRITIS, UNSPECIFIED SITE 06/29/2019 TRUDI SERRANO MD, Ot M54. 9 DORSALGIA, UNSPECIFIED 06/29/2019 TRUDI SERRANO MD Ot N17. 0 ACUTE KIDNEY FAILURE WITH TUBULAR NECROS 06/29/2019 MAGGIE MD, TRUDI M Ot N18. 9 CHRONIC KIDNEY DISEASE, UNSPECIFIED 06/29/2019 TRUDI SERRANO MD, Ot R11. 10 VOMITING, UNSPECIFIED 06/29/2019 TRUDI SERRANO MD, Ot Z79. 4 SKILLED NURSING (CURRENT) USE OF INSULIN 06/29/2019 TRUDI SERRANO MD, Ot Z86.718 PERSONAL HISTORY OF OTHER VENOUS THROMBO 06/29/2019 TRUDI SERRANO MD, Ot Z87. 11 PERSONAL HISTORY OF PEPTIC ULCER DISEASE 06/29/2019 TRUDI SERRANO MD, Ot Z87. 19 PERSONAL HISTORY OF OTHER DISEASES OF TH 06/29/2019 TRUDI SERRANO MD, Ot Z91. 14 PATIENT'S OTHER NONCOMPLIANCE WITH MEDIC 06/29/2019 TRUDI SERRANO MD, Ot Z95.828 PRESENCE OF OTHER VASCULAR IMPLANTS AND 06/29/2019 TRUDI SERRANO MD, Ot D72.829 ELEVATED WHITE BLOOD CELL COUNT, UNSPECI 06/29/2019 TRUDI SERRANO MD Ot E10. 10 TYPE 1 DIABETES MELLITUS WITH KETOACIDOS 06/29/2019 TRUDI SERRANO MD Ot E10. 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 5 HYPERLIPIDEMIA, UNSPECIFIED 06/29/2019 TRUDI SERRANO MD Ot E86. 0 DEHYDRATION 06/29/2019 TRUDI SERRANO MD Ot E87. 2 ACIDOSIS 06/29/2019 TRUDI SERRANO MD Ot F17.210 NICOTINE DEPENDENCE, CIGARETTES, UNCOMPL 06/29/2019 TRUDI SERRANO MD, Ot F60. 9 PERSONALITY DISORDER, UNSPECIFIED 06/29/2019 TRUDI SERRANO MD, Ot J30. 2 OTHER SEASONAL ALLERGIC RHINITIS 06/29/2019 TRUDI SERRANO MD, Ot J44. 9 CHRONIC OBSTRUCTIVE PULMONARY DISEASE, U 06/29/2019 TRUDI SERRANO MD, Ot K21. 9 GASTRO-ESOPHAGEAL REFLUX DISEASE WITHOUT 06/29/2019 TRUDI SERRANO MD, Ot M06. 9 RHEUMATOID ARTHRITIS, UNSPECIFIED 06/29/2019 MAGGIE MD, TRUDI M Ot M19. 91 PRIMARY OSTEOARTHRITIS, UNSPECIFIED SITE 06/29/2019 TRUDI SERRANO MD, Ot M54. 9 DORSALGIA, UNSPECIFIED 06/29/2019 TRUDI SERRANO MD, Ot N17. 0 ACUTE KIDNEY FAILURE WITH TUBULAR NECROS 06/29/2019 TRUDI SERRANO MD, Ot N18. 9 CHRONIC KIDNEY DISEASE, UNSPECIFIED 06/29/2019 TRUDI SERRANO MD Ot R11. 10 VOMITING, UNSPECIFIED 06/29/2019 TRUDI SERRANO MD, Ot Z79. 4 SKILLED NURSING (CURRENT) USE OF INSULIN 06/29/2019 TRUDI SERRANO MD, Ot Z86.718 PERSONAL HISTORY OF OTHER VENOUS THROMBO 06/29/2019 TRUDI SERRANO MD, Ot Z87. 11 PERSONAL HISTORY OF PEPTIC ULCER DISEASE 06/29/2019 TRUDI SERRANO MD, Ot Z87. 19 PERSONAL HISTORY OF OTHER DISEASES OF TH 06/29/2019 TRUDI SERRANO MD, Ot Z91. 14 PATIENT'S OTHER NONCOMPLIANCE WITH MEDIC 06/29/2019 TRUDI SERRANO MD Ot Z95.828 PRESENCE OF OTHER VASCULAR IMPLANTS AND 06/30/2019 TRUDI SERRANO MD, Ot D72.829 ELEVATED WHITE BLOOD CELL COUNT, UNSPECI 06/30/2019 TRUDI SERRANO MD Ot E10. 10 TYPE 1 DIABETES MELLITUS WITH KETOACIDOS 06/30/2019 TRUDI SERRANO MD Ot E10. 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 5 HYPERLIPIDEMIA, UNSPECIFIED 06/30/2019 TRUDI SERRANO MD, Ot E86. 0 DEHYDRATION 06/30/2019 TRUDI SERRANO MD, Ot E87. 2 ACIDOSIS 06/30/2019 TRUDI SERRANO MD, Ot F17.210 NICOTINE DEPENDENCE, CIGARETTES, UNCOMPL 06/30/2019 TRUDI SERRANO MD, Ot F60. 9 PERSONALITY DISORDER, UNSPECIFIED 06/30/2019 TRUDI SERRANO MD Ot G89. 29 OTHER CHRONIC PAIN 06/30/2019 MAGGIE MD, TRUDI M Ot J30. 2 OTHER SEASONAL ALLERGIC RHINITIS 06/30/2019 TRUDI SERRANO MD, Ot J44. 9 CHRONIC OBSTRUCTIVE PULMONARY DISEASE, U 06/30/2019 TRUDI SERRANO MD, Ot K21. 9 GASTRO-ESOPHAGEAL REFLUX DISEASE WITHOUT 06/30/2019 TRUDI SERRANO MD, Ot M06. 9 RHEUMATOID ARTHRITIS, UNSPECIFIED 06/30/2019 TRUDI SERRANO MD, Ot M19. 91 PRIMARY OSTEOARTHRITIS, UNSPECIFIED SITE 06/30/2019 TRUDI SERRANO MD, Ot M54. 9 DORSALGIA, UNSPECIFIED 06/30/2019 TRUDI SERRANO MD, Ot N17. 0 ACUTE KIDNEY FAILURE WITH TUBULAR NECROS 06/30/2019 TRUDI SERRANO MD, Ot N18. 9 CHRONIC KIDNEY DISEASE, UNSPECIFIED 06/30/2019 TRUDI SERRANO MD Ot R07. 89 OTHER CHEST PAIN 06/30/2019 TRUDI SERRANO MD, Ot R11. 10 VOMITING, UNSPECIFIED 06/30/2019 TRUDI SERRANO MD, Ot Z79. 4 SKILLED NURSING (CURRENT) USE OF INSULIN 06/30/2019 TRUDI SERRANO MD, Ot Z86.718 PERSONAL HISTORY OF OTHER VENOUS THROMBO 06/30/2019 TRUDI SERRANO MD, Ot Z87. 11 PERSONAL HISTORY OF PEPTIC ULCER DISEASE 06/30/2019 TRUDI SERRANO MD, Ot Z87. 19 PERSONAL HISTORY OF OTHER DISEASES OF TH 06/30/2019 TRUDI SERRANO MD Ot Z88. 2 ALLERGY STATUS TO SULFONAMIDES STATUS 06/30/2019 TRUDI SERRANO MD, Ot Z88. 5 ALLERGY STATUS TO NARCOTIC AGENT STATUS 06/30/2019 TRUDI SERRANO MD Ot Z91. 14 PATIENT'S OTHER NONCOMPLIANCE WITH MEDIC 06/30/2019 TRUDI SERRANO MD Ot Z95.828 PRESENCE OF OTHER VASCULAR IMPLANTS AND 11/24/2019 LIZET MAS APRN Ot E11.10 TYPE 2 DIABETES MELLITUS WITH KETOACIDOS 11/24/2019 LIZET MAS APRN Ot E11.43 TYPE 2 DIABETES W DIABETIC AUTONOMIC (PO 11/24/2019 LIZET MAS APRN Ot F17.210 NICOTINE DEPENDENCE, CIGARETTES, UNCOMPL 11/24/2019 LIZET MAS APRN Ot F60 .9 PERSONALITY DISORDER, UNSPECIFIED 11/24/2019 LIZET MAS APRN Ot J44 .9 CHRONIC OBSTRUCTIVE PULMONARY DISEASE, U 11/24/2019 LIZET MAS APRN Ot K21 .9 GASTRO-ESOPHAGEAL REFLUX DISEASE WITHOUT 11/24/2019 LIZET MAS APRN Ot K31.84 GASTROPARESIS 11/24/2019 LIZET MAS APRN Ot M06 .9 RHEUMATOID ARTHRITIS, UNSPECIFIED 11/24/2019 LIZET MAS APRN Ot R10.31 RIGHT LOWER QUADRANT PAIN 11/24/2019 LIZET MAS APRN Ot Z79 .4 SOIL SCIENTIST (CURRENT) USE OF INSULIN 11/24/2019 LIZET MAS APRN Ot Z80 .8 FAMILY HISTORY OF MALIGNANT NEOPLASM OF 11/24/2019 LIZET MAS APRN Ot Z86.718 PERSONAL HISTORY OF OTHER VENOUS THROMBO 11/24/2019 LIZET MAS APRN Ot Z87.01 PERSONAL HISTORY OF PNEUMONIA (RECURRENT 11/24/2019 LIZET MAS APRN Ot Z88 .2 ALLERGY STATUS TO SULFONAMIDES STATUS 11/24/2019 LIZET MAS APRN Ot Z88 .5 ALLERGY STATUS TO NARCOTIC AGENT STATUS 11/24/2019 LIZET MAS APRN Ot Z90.710 ACQUIRED ABSENCE OF BOTH CERVIX AND UTER 11/24/2019 LIZET MAS APRN Ot Z90.89 ACQUIRED ABSENCE OF OTHER ORGANS 12/29/2019 NOEMÍ RAPHAEL MD Ot D64. 9 ANEMIA, UNSPECIFIED 12/29/2019 NOEMÍ RAPHAEL MD Ot E10. 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 0 DEHYDRATION 12/29/2019 NOEMÍ RAPHAEL MD Ot E87. 1 HYPO-OSMOLALITY AND HYPONATREMIA 12/29/2019 NOEMÍ RAPHAEL MD Ot E87. 2 ACIDOSIS 12/29/2019 NOEMÍ RAPHAEL MD Ot E87. 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 9 PERSONALITY DISORDER, UNSPECIFIED 12/29/2019 NOEMÍ RAPHAEL MD Ot G93. 49 OTHER ENCEPHALOPATHY 12/29/2019 NOEMÍ RAPHAEL MD Ot I95. 9 HYPOTENSION, UNSPECIFIED 12/29/2019 NOEMÍ RAPHAEL MD, Ot J44. 9 CHRONIC OBSTRUCTIVE PULMONARY DISEASE, U 12/29/2019 NOEMÍ RAPHAEL MD, Ot J96. 00 ACUTE RESPIRATORY FAILURE, UNSP W HYPOXI 12/29/2019 NOEMÍ RAPHAEL MD, Ot K21. 9 GASTRO-ESOPHAGEAL REFLUX DISEASE WITHOUT 12/29/2019 NOEMÍ RAPHAEL MD, Ot M06. 9 RHEUMATOID ARTHRITIS, UNSPECIFIED 12/29/2019 NOEMÍ RAPHAEL MD, Ot M19. 91 PRIMARY OSTEOARTHRITIS, UNSPECIFIED SITE 12/29/2019 NOEMÍ RAPHAEL MD, Ot N17. 9 ACUTE KIDNEY FAILURE, UNSPECIFIED 12/29/2019 NOEMÍ RAPHAEL MD, Ot N18. 9 CHRONIC KIDNEY DISEASE, UNSPECIFIED 12/29/2019 NOEMÍ RAPHAEL MD Ot R00. 0 TACHYCARDIA, UNSPECIFIED 12/29/2019 NOEMÍ RAPHAEL MD Ot R57. 1 HYPOVOLEMIC SHOCK 12/29/2019 NOEMÍ RAPHAEL MD Ot Z79. 4 SOIL SCIENTIST (CURRENT) USE OF INSULIN 12/29/2019 NOEMÍ RAPHAEL MD Ot Z86.718 PERSONAL HISTORY OF OTHER VENOUS THROMBO 12/29/2019 NOEMÍ RAPHAEL MD Ot Z86. 79 PERSONAL HISTORY OF OTHER DISEASES OF TH 12/29/2019 NOEMÍ RAPHAEL MD Ot Z87. 11 PERSONAL HISTORY OF PEPTIC ULCER DISEASE 12/29/2019 NOEMÍ RAPHAEL MD Ot Z91. 81 HISTORY OF FALLING 12/29/2019 NOEMÍ RAPHAEL MD Ot Z96. 0 PRESENCE OF UROGENITAL IMPLANTS 12/30/2019 NOEMÍ RAPHAEL MD Ot D64. 9 ANEMIA, UNSPECIFIED 12/30/2019 NOEMÍ RAPHAEL MD Ot E10. 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 0 DEHYDRATION 12/30/2019 NOEMÍ RAPHAEL MD Ot E87. 1 HYPO-OSMOLALITY AND HYPONATREMIA 12/30/2019 NOEMÍ RAPHAEL MD Ot E87. 2 ACIDOSIS 12/30/2019 NOEMÍ RAPHAEL MD Ot E87. 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 9 PERSONALITY DISORDER, UNSPECIFIED 12/30/2019 NOEMÍ RAPHAEL MD Ot G93. 49 OTHER ENCEPHALOPATHY 12/30/2019 NOEMÍ RAPHAEL MD Ot I95. 9 HYPOTENSION, UNSPECIFIED 12/30/2019 NOEMÍ RAPHAEL MD, Ot J44. 9 CHRONIC OBSTRUCTIVE PULMONARY DISEASE, U 12/30/2019 NOEMÍ RAPHAEL MD Ot J96. 00 ACUTE RESPIRATORY FAILURE, UNSP W HYPOXI 12/30/2019 NOEMÍ RAPHAEL MD Ot K21. 9 GASTRO-ESOPHAGEAL REFLUX DISEASE WITHOUT 12/30/2019 NOEMÍ RAPHAEL MD Ot M06. 9 RHEUMATOID ARTHRITIS, UNSPECIFIED 12/30/2019 NOEMÍ RAPHAEL MD Ot M19. 91 PRIMARY OSTEOARTHRITIS, UNSPECIFIED SITE 12/30/2019 NOEMÍ RAPHAEL MD Ot N17. 9 ACUTE KIDNEY FAILURE, UNSPECIFIED 12/30/2019 NOEMÍ RAPHAEL MD Ot N18. 9 CHRONIC KIDNEY DISEASE, UNSPECIFIED 12/30/2019 NOEMÍ RAPHAEL MD Ot R00. 0 TACHYCARDIA, UNSPECIFIED 12/30/2019 NOEMÍ RAPHAEL MD Ot R57. 1 HYPOVOLEMIC SHOCK 12/30/2019 NOEMÍ RAPHAEL MD Ot Z79. 4 SKILLED NURSING (CURRENT) USE OF INSULIN 12/30/2019 NOEMÍ RAPHAEL MD Ot Z86.718 PERSONAL HISTORY OF OTHER VENOUS THROMBO 12/30/2019 NOEMÍ RAPHAEL MD Ot Z86. 79 PERSONAL HISTORY OF OTHER DISEASES OF TH 12/30/2019 NOEMÍ RAPHAEL MD Ot Z87. 11 PERSONAL HISTORY OF PEPTIC ULCER DISEASE 12/30/2019 NOEMÍ RAPHAEL MD Ot Z91. 81 HISTORY OF FALLING 12/30/2019 NOEMÍ RAPHAEL MD Ot Z96. 0 PRESENCE OF UROGENITAL IMPLANTS 01/01/2020 NOEMÍ RAPHAEL MD Ot A41. 9 SEPSIS, UNSPECIFIED ORGANISM 01/01/2020 NOEMÍ RAPHAEL MD Ot B37. 1 PULMONARY CANDIDIASIS 01/01/2020 NOEMÍ RAPHAEL MD Ot D64. 9 ANEMIA, UNSPECIFIED 01/01/2020 NOEMÍ RAPHAEL MD Ot E10. 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 0 DEHYDRATION 01/01/2020 NOEMÍ RAPHAEL MD Ot E87. 1 HYPO-OSMOLALITY AND HYPONATREMIA 01/01/2020 NOEMÍ RAPHAEL MD Ot E87. 2 ACIDOSIS 01/01/2020 NOEMÍ RAPHAEL MD Ot E87. 5 HYPERKALEMIA 01/01/2020 NOEMÍ RAPHAEL MD Ot E87. 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 9 PERSONALITY DISORDER, UNSPECIFIED 01/01/2020 NOEMÍ RAPHAEL MD Ot G93. 49 OTHER ENCEPHALOPATHY 01/01/2020 NOEMÍ RAPHAEL MD Ot I95. 9 HYPOTENSION, UNSPECIFIED 01/01/2020 NOEMÍ RAPHAEL MD Ot J13 PNEUMONIA DUE TO STREPTOCOCCUS PNEUMONIA 01/01/2020 NOEMÍ RAPHAEL MD Ot J44. 9 CHRONIC OBSTRUCTIVE PULMONARY DISEASE, U 01/01/2020 NOEMÍ RAPHAEL MD Ot J96. 00 ACUTE RESPIRATORY FAILURE, UNSP W HYPOXI 01/01/2020 NOEMÍ RAPHAEL MD Ot K21. 9 GASTRO-ESOPHAGEAL REFLUX DISEASE WITHOUT 01/01/2020 NOEMÍ RAPHAEL MD Ot K92. 2 GASTROINTESTINAL HEMORRHAGE, UNSPECIFIED 01/01/2020 NOEMÍ RAPHAEL MD Ot M06. 9 RHEUMATOID ARTHRITIS, UNSPECIFIED 01/01/2020 DONAVONNOEMÍ SYKES MD, Ot M19. 91 PRIMARY OSTEOARTHRITIS, UNSPECIFIED SITE 01/01/2020 NOEMÍ RAPHAEL MD, Ot N17. 9 ACUTE KIDNEY FAILURE, UNSPECIFIED 01/01/2020 NOEMÍ RAPHAEL MD, Ot N18. 9 CHRONIC KIDNEY DISEASE, UNSPECIFIED 01/01/2020 NOEMÍ RAPHAEL MD, Ot R00. 0 TACHYCARDIA, UNSPECIFIED 01/01/2020 NOEMÍ RAPHAEL MD, Ot R57. 1 HYPOVOLEMIC SHOCK 01/01/2020 NOEMÍ RAPHAEL MD, Ot R65. 20 SEVERE SEPSIS WITHOUT SEPTIC SHOCK 01/01/2020 NOEMÍ RAPHAEL MD, Ot Z79. 4 SKILLED NURSING (CURRENT) USE OF INSULIN 01/01/2020 NOEMÍ RAPHAEL MD, Ot Z86.718 PERSONAL HISTORY OF OTHER VENOUS THROMBO 01/01/2020 NOEMÍ RAPHAEL MD, Ot Z87. 11 PERSONAL HISTORY OF PEPTIC ULCER DISEASE 01/01/2020 NOEMÍ RAPHAEL MD, Ot Z91. 81 HISTORY OF FALLING Procedures Code Description Performed By Per angie On 38.7 10/31/2011 [id number] IN SERTION OF ENDOTRACHEAL AIRWAY INTO TR 12/27/2019 [id number] RE SPIRATORY VENTILATION, LESS THAN 24 CO 12/27/2019 [id number] RE SPIRATORY VENTILATION, 24- 96 CONSECUTI 12/27/2019 Results Test Result Range Comprehensive metabolic panel - 06/14/16 08:48 Serum or plasma sodium measurement (moles/volume) 138 mmol/L 135-145 Serum or plasma potassium measurement (moles/volume) 4.9 mmol/L 3.6-5.0 Serum or plasma chloride measurement (moles/volume) 103 mmol/L 98-107 Carbon dioxide 29 mmol/L 21-32 Serum or plasma anion gap determination (moles/volume) 6 mmol/L 5-14 Serum or plasma urea nitrogen measurement (mass/volume ) 26 mg/dL 7-18 Serum or plasma creatinine measurement (mass/volume) 1.30 mg/dL 0.60-1.30 Serum or plasma urea nitrogen/creatinine mass ratio 20 NRG Serum or plasma creatinine measurement w ith calculation of estimated glomerular filtration rate 43 NRG Serum or plasma glucose measurement (mass/volume) 223 mg/dL 70-105 Serum or plasma calcium measurement (mass/volume) 9.8 mg/dL 8.5-10.1 Serum or plasma total bilirubin measurement (mass/volu me) 0.6 mg/dL 0.1-1.0 Serum or plasma alkaline phosphatase cody surement (enzymatic activity/volume) 72 U/L 40-136 Serum or plasma aspartate aminotransfera se measurement (enzymatic activity/volume) 20 U/L 5-34 Serum [...] Serum or plasma cholesterol in HDL measurement (mass/v olume) 55 mg/dL 40-60 Cholesterol in LDL [mass/volume] in serum or plasma by direct assay 132 mg/dL 1-129 Serum or plasma cholesterol in VLDL measurement (mass/ volume) 24 mg/dL 5-40 THYROID STIMULATING HORMONE - 06/14/16 0 8:48 THYROID STIMULATING HORMONE 0.80 u[iU]/mL 0.35-4.94 Comprehensive metabolic panel - 07/07/17 07:58 Serum or plasma sodium measurement (moles/volume) 137 mmol/L 135-145 Serum or plasma potassium measurement (moles/volume) 4.6 mmol/L 3.6-5.0 Serum or plasma chloride measurement (moles/volume) 110 mmol/L 98-107 Carbon dioxide 21 mmol/L 21-32 Serum or plasma anion gap determination (moles/volume) 6 mmol/L 5-14 Serum or plasma urea nitrogen measurement (mass/volume ) 25 mg/dL 7-18 Serum or plasma creatinine measurement (mass/volume) 1.17 mg/dL 0.60-1.30 Serum or plasma urea nitrogen/creatinine mass ratio 21 NRG Serum or plasma creatinine measurement w ith calculation of estimated glomerular filtration rate 48 NRG Serum or plasma glucose measurement (mass/volume) 201 mg/dL 70-105 Serum or plasma calcium measurement (mass/volume) 8.8 mg/dL 8.5-10.1 Serum or plasma total bilirubin measurement (mass/volu me) 0.7 mg/dL 0.1-1.0 Serum or plasma alkaline phosphatase cody surement (enzymatic activity/volume) 66 U/L 40-136 Serum or plasma aspartate aminotransfera se measurement (enzymatic activity/volume) 54 U/L 5-34 Serum [...] Serum or plasma cholesterol in HDL measurement (mass/v olume) 37 mg/dL 40-60 Cholesterol in LDL [mass/volume] in serum or plasma by direct assay 97 mg/dL 1-129 Serum or plasma cholesterol in VLDL measurement (mass/ volume) 34 mg/dL 5-40 Cyanocobalamin measurement - 07/07/17 07 :58 Vitamin B12 1904 pg/mL 200-1000 25-hydroxyvitamin D measurement - 07:58 25-hydroxy vitamin D measurement 14 % 30-100 Complete blood count (CBC) with automate d white blood cell (WBC) differential - 07/22/17 19:45 Blood leukocytes automated count (number/volume) 9.4 10*3/uL 4.3-11.0 Blood erythrocytes automated count (number/volume) 4.92 10*6/uL 4.35-5.85 Venous blood hemoglobin measurement (mass/volume) 15.4 g/dL 11.5-16.0 Blood hematocrit (volume fraction) 46 % 35-52 Automated erythrocyte mean corpuscular volume 93 [ [id number]] 80-99 Automated erythrocyte mean corpuscular h emoglobin (mass per erythrocyte) 31 pg 25-34 Automated erythrocyte mean corpuscular h emoglobin concentration measurement (mass/volume) 34 g/dL 32-36 Automated erythrocyte distribution width ratio 13. 8 % 10.0- 14.5 Automated blood platelet count [...] 10*3 1.0-4.0 Blood monocytes automated count (number/volume) 0. 8 10*3 0.0-1.0 Automated eosinophil count 0.2 10*3/uL 0 .0-0.3 Automated blood basophil count (count/volume) 0.0 10*3/uL 0.0-0.1 Comprehensive metabolic panel - 07/22/17 19:45 Serum or plasma sodium measurement (moles/volume) 142 mmol/L 135-145 Serum or plasma potassium measurement (moles/volume) 4.2 mmol/L 3.6-5.0 Serum or plasma chloride measurement (moles/volume) 104 mmol/L 98-107 Carbon dioxide 24 mmol/L 21-32 Serum or plasma anion gap determination (moles/volume) 14 mmol/L 5-14 Serum or plasma urea nitrogen measurement (mass/volume ) 25 mg/dL 7-18 Serum or plasma creatinine measurement (mass/volume) 1.29 mg/dL 0.60-1.30 Serum or plasma urea nitrogen/creatinine mass ratio 19 NRG Serum or plasma creatinine measurement w ith calculation of estimated glomerular filtration rate 43 NRG Serum or plasma glucose measurement (mass/volume) 102 mg/dL 70-105 Serum or plasma calcium measurement (mass/volume) 9.6 mg/dL 8.5-10.1 Serum or plasma total bilirubin measurement (mass/volu me) 0.9 mg/dL 0.1-1.0 Serum or plasma alkaline phosphatase cody surement (enzymatic activity/volume) 83 U/L 40-136 Serum or plasma aspartate aminotransfera se measurement (enzymatic activity/volume) 99 U/L 5-34 Serum or plasma alanine aminotransferase measurement (enzymatic activity/volume) 230 U/L 0-55 Serum or plasma protein measurement (mass/volume) 7.9 g/dL 6.4-8.2 Serum or plasma albumin measurement (mass/volume) 4.1 g/dL 3.2-4.5 Lipase - 09/05/17 19:45 Lipase 144 U/L 8-78 Urine drug screening test - 07/22/17 20: 00 Urine phencyclidine detection by screening method NEGATIVE NEGATIVE Urine benzodiazepines detection by screening method NEGATIVE NEGATIVE Urine cocaine detection NEGATIVE NEGATI VE Urine amphetamines detection by screening method N EGATIVE NEGATIVE Urine methamphetamine detection by screening method NEGATIVE NEGATIVE Urine cannabinoids detection by screening method P OSITIVE NEGATIVE Urine opiates detection by screening method NEGATI VE NEGATIVE Urine barbiturates detection NEGATIVE N EGATIVE Screening urine tricyclic antidepressants detection NEGATIVE NEGATIVE Urine methadone detection by screening method NEGA TIVE NEGATIVE Urine oxycodone detection NEGATIVE NEGA TIVE Urine propoxyphene detection NEGATIVE N EGATIVE Complete urinalysis with reflex to cultu re - 07/22/17 20:00 Urine color determination YELLOW NRG Urine clarity determination SLIGHTLY CLOUDY NRG Urine pH measurement by test strip 8 5-9 Specific gravity of urine by test strip 1.010 1.016-1.022 Urine protein assay by test strip, semi-quantitative 3+ NEGATIVE Urine glucose detection by automated test strip NE GATIVE NEGATIVE Erythrocytes detection in urine sediment by light micr oscopy 2+ NEGATIVE Urine ketones detection by automated test strip 1+ NEGATIVE Urine nitrite detection by test strip NEGATIVE NEGATIVE Urine total bilirubin detection by test strip NEGA TIVE NEGATIVE Urine urobilinogen measurement by automated test strip (mass/volume) NORMAL NORMAL Urine leukocyte esterase detection by dipstick 1+ NEGATIVE Automated urine sediment erythrocyte cou nt by microscopy (number/high power field) [HPF] NRG Automated urine sediment leukocyte count by microscopy (number/high power field) [HPF] NRG Bacteria detection in urine sediment by light microsco py NONE NRG Squamous epithelial cells detection in u rine sediment by light microscopy 0-2 NRG Crystals detection in urine sediment by light microsco py NONE NRG Casts detection in urine sediment by light microscopy NONE NRG Mucus detection in urine sediment by light microscopy NEGATIVE NRG Complete urinalysis with reflex to culture NO NRG Complete blood count (CBC) with automate d white blood cell (WBC) differential - 08/27/17 08:55 Blood leukocytes automated count (number/volume) 7.0 10*3/uL 4.3-11.0 Blood erythrocytes automated count (number/volume) 5.49 10*6/uL 4.35-5.85 Venous blood hemoglobin measurement (mass/volume) 17.0 g/dL 11.5-16.0 Blood hematocrit (volume fraction) 51 % 35-52 Automated erythrocyte mean corpuscular volume 92 [ foz_us] 80-99 Automated erythrocyte mean corpuscular h emoglobin (mass per erythrocyte) 31 pg 25-34 Automated erythrocyte mean corpuscular h emoglobin concentration measurement (mass/volume) 34 g/dL 32-36 Automated erythrocyte distribution width ratio 13. 7 % 10.0- 14.5 Automated blood platelet count [...] 10*3 1.0-4.0 Blood monocytes automated count (number/volume) 0. 9 10*3 0.0-1.0 Automated eosinophil count 0.2 10*3/uL 0 .0-0.3 Automated blood basophil count (count/volume) 0.0 10*3/uL 0.0-0.1 Comprehensive metabolic panel - 08/27/17 08:55 Serum or plasma sodium measurement (moles/volume) 138 mmol/L 135-145 Serum or plasma potassium measurement (moles/volume) 4.2 mmol/L 3.6-5.0 Serum or plasma chloride measurement (moles/volume) 103 mmol/L 98-107 Carbon dioxide 26 mmol/L 21-32 Serum or plasma anion gap determination (moles/volume) 9 mmol/L 5-14 Serum or plasma urea nitrogen measurement (mass/volume ) 23 mg/dL 7-18 Serum or plasma creatinine measurement (mass/volume) 1.33 mg/dL 0.60-1.30 Serum or plasma urea nitrogen/creatinine mass ratio 17 NRG Serum or plasma creatinine measurement w ith calculation of estimated glomerular filtration rate 42 NRG Serum or plasma glucose measurement (mass/volume) 186 mg/dL 70-105 Serum or plasma calcium measurement (mass/volume) 9.9 mg/dL 8.5-10.1 Serum or plasma total bilirubin measurement (mass/volu me) 1.2 mg/dL 0.1-1.0 Serum or plasma alkaline phosphatase cody surement (enzymatic activity/volume) 83 U/L 40-136 Serum or plasma aspartate aminotransfera se measurement (enzymatic activity/volume) 73 U/L 5-34 Serum [...] Serum or plasma cholesterol in HDL measurement (mass/v olume) 42 mg/dL 40-60 Cholesterol in LDL [mass/volume] in serum or plasma by direct assay 108 mg/dL 1-129 Serum or plasma cholesterol in VLDL measurement (mass/ volume) 34 mg/dL 5-40 Hemoglobin A1c - 08/27/17 08:55 Hemoglobin A1c 10.7 % 4.5-6.2 Automated blood complete blood count (he mogram) panel - 04/15/18 08:18 Blood leukocytes automated count (number/volume) 5.2 10*3/uL 4.3-11.0 Blood erythrocytes automated count (number/volume) 4.66 10*6/uL 4.35-5.85 Venous blood hemoglobin measurement (mass/volume) 15.0 g/dL 11.5-16.0 Blood hematocrit (volume fraction) 43 % 35-52 Automated erythrocyte mean corpuscular volume 93 [ foz_us] 80-99 Automated erythrocyte mean corpuscular h emoglobin (mass per erythrocyte) 32 pg 25-34 Automated erythrocyte mean corpuscular h emoglobin concentration measurement (mass/volume) 35 g/dL 32-36 Automated erythrocyte distribution width ratio 13. 3 % 10.0- 14.5 Automated blood platelet count [...] 5-14 Serum or plasma urea nitrogen measurement (mass/volume ) 25 mg/dL 7-18 Serum or plasma creatinine measurement (mass/volume) 1.21 mg/dL 0.60-1.30 Serum or plasma urea nitrogen/creatinine mass ratio 21 NRG Serum or plasma creatinine measurement w ith calculation of estimated glomerular filtration rate 46 NRG Serum or plasma glucose measurement (mass/volume) 310 mg/dL 70-105 Serum or plasma calcium measurement (mass/volume) 9.3 mg/dL 8.5-10.1 Serum or plasma total bilirubin measurement (mass/volu me) 0.8 mg/dL 0.1-1.0 Serum or plasma alkaline phosphatase cody surement (enzymatic activity/volume) 66 U/L 40-136 Serum or plasma aspartate aminotransfera se measurement (enzymatic activity/volume) 68 U/L 5-34 Serum or plasma alanine aminotransferase measurement (enzymatic activity/volume) 133 U/L 0-55 Serum or plasma protein measurement (mass/volume) 7.3 g/dL 6.4-8.2 Serum or plasma albumin measurement (mass/volume) 3.9 g/dL 3.2-4.5 THYROID STIMULATING HORMONE - 04/15/18 0 8:18 THYROID STIMULATING HORMONE 0.73 u[iU]/mL 0.35-4.94 Urine microalbumin measurement by test s trip (mass/volume) - 04/15/18 08:18 Urine creatinine measurement (mass/volume) 166 % NRG Microalbumin [mass/volume] in urine 739.8 % 0.0-20.0 Microalbumin/creatinine [ratio] in urine 445.7 mg/ g{Cre} 0.0-30.0 Cyanocobalamin measurement - 04/15/18 08 :18 Vitamin B12 952 pg/mL 190-1100 VITAMIN D 25-HYDROXY - 04/15/18 08:18 VITAMIN D 25-HYDROXY (TOTAL) 25.2 % 3 0.0-100.0 Automated blood complete blood count (he mogram) panel - 12/01/18 17:23 Blood leukocytes automated count (number/volume) 9.4 10*3/uL 4.3-11.0 Blood erythrocytes automated count (number/volume) 4.76 10*6/uL 4.35-5.85 Venous blood hemoglobin measurement (mass/volume) 14.7 g/dL 11.5-16.0 Blood hematocrit (volume fraction) 44 % 35-52 Automated erythrocyte mean corpuscular volume 93 [ foz_us] 80-99 Automated erythrocyte mean corpuscular h emoglobin (mass per erythrocyte) 31 pg 25-34 Automated erythrocyte mean corpuscular h emoglobin concentration measurement (mass/volume) 33 g/dL 32-36 Automated erythrocyte distribution width ratio 13. 2 % 10.0- 14.5 Automated blood platelet count [...] 5-14 Serum or plasma urea nitrogen measurement (mass/volume ) 24 mg/dL 7-18 Serum or plasma creatinine measurement (mass/volume) 1.78 mg/dL 0.60-1.30 Serum or plasma urea nitrogen/creatinine mass ratio 13 NRG Serum or plasma creatinine measurement w ith calculation of estimated glomerular filtration rate 30 NRG Serum or plasma glucose measurement (mass/volume) 112 mg/dL 70-105 Serum or plasma calcium measurement (mass/volume) 10.1 mg/dL 8.5-10.1 Serum or plasma total bilirubin measurement (mass/volu me) 0.8 mg/dL 0.1-1.0 Serum or plasma alkaline phosphatase cody surement (enzymatic activity/volume) 92 U/L 40-136 Serum or plasma aspartate aminotransfera se measurement (enzymatic activity/volume) 42 U/L 5-34 Serum [...] Serum or plasma cholesterol in HDL measurement (mass/v olume) 54 mg/dL 40-60 Cholesterol in LDL [mass/volume] in serum or plasma by direct assay 179 mg/dL 1-129 Serum or plasma cholesterol in VLDL measurement (mass/ volume) 46 mg/dL 5-40 THYROID STIMULATING HORMONE - 12/01/18 1 7:23 THYROID STIMULATING HORMONE 4.84 u[iU]/mL 0.35-4.94 Complete blood count (CBC) with automate d white blood cell (WBC) differential - 06/27/19 08:19 Blood leukocytes automated count (number/volume) 26.1 10*3/uL 4.3-11.0 Blood erythrocytes automated count (number/volume) 4.51 10*6/uL 4.35-5.85 Venous blood hemoglobin measurement (mass/volume) 14.1 g/dL 11.5-16.0 Blood hematocrit (volume fraction) 44 % 35-52 Automated erythrocyte mean corpuscular volume 97 [ foz_us] 80-99 Automated erythrocyte mean corpuscular h emoglobin (mass per erythrocyte) 31 pg 25-34 Automated erythrocyte mean corpuscular h emoglobin concentration measurement (mass/volume) 32 g/dL 32-36 Automated erythrocyte distribution width ratio 13. 7 % 10.0- 14.5 Automated blood platelet count (count/volume) 349 10*3/uL 130-400 Automated blood platelet mean volume measurement 10.6 [foz_us] 7.4-10.4 Automated blood neutrophils/100 leukocytes 81 % 42-75 Automated blood lymphocytes/100 leukocytes 11 % 12-44 Blood monocytes/100 leukocytes 7 % 0-12 Automated blood eosinophils/100 leukocytes 0 % 0-10 Automated blood basophils/100 leukocytes 0 % 0-10 Blood neutrophils automated count (number/volume) 21.2 10*3 1.8-7.8 Blood lymphocytes automated count (number/volume) 3.0 10*3 1.0-4.0 Blood monocytes automated count (number/volume) 1. 8 10*3 0.0-1.0 Automated eosinophil count 0.0 10*3/uL 0 .0-0.3 Automated blood basophil count (count/volume) 0.0 10*3/uL 0.0-0.1 Manual absolute plasma cell count - 06/17 12/05 08:19 Blood monocytes/100 leukocytes 5 % NRG Manual blood segmented neutrophils/100 leukocytes 83 % NRG Blood band neutrophils/100 leukocytes 0 % NRG Manual blood lymphocytes/100 leukocytes 12 % NRG Manual eosinophils/100 leukocytes in nose 0 % NRG Manual blood basophils/100 leukocytes 0 % NRG Blood erythrocyte morphology finding identification NORMAL NR Comprehensive metabolic panel - 06/27/19 08:19 Serum or plasma sodium measurement (moles/volume) 129 mmol/L 135-145 Serum or plasma potassium measurement (moles/volume) 6.3 mmol/L 3.6-5.0 Serum or plasma chloride measurement (moles/volume) 88 mmol/L 98-107 Carbon dioxide < mmol/L 21-32 Serum or plasma anion gap determination (moles/volume) 37 mmol/L 5-14 Serum or plasma urea nitrogen measurement (mass/volume ) 51 mg/dL 7-18 Serum or plasma creatinine measurement (mass/volume) 2.96 mg/dL 0.60-1.30 Serum or plasma urea nitrogen/creatinine mass ratio 17 NRG Serum or plasma creatinine measurement w ith calculation of estimated glomerular filtration rate 16 NRG Serum or plasma glucose measurement (mass/volume) 919 mg/dL 70-105 Serum or plasma calcium measurement (mass/volume) 9.6 mg/dL 8.5-10.1 Serum or plasma total bilirubin measurement (mass/volu me) 0.4 mg/dL 0.1-1.0 Serum or plasma alkaline phosphatase cody surement (enzymatic activity/volume) 127 U/L 40-136 Serum or plasma aspartate aminotransfera se measurement (enzymatic activity/volume) 32 U/L 5-34 Serum or plasma alanine aminotransferase measurement (enzymatic activity/volume) 74 U/L 0-55 Serum or plasma protein measurement (mass/volume) 7.4 g/dL 6.4-8.2 Serum or plasma albumin measurement (mass/volume) 3.4 g/dL 3.2-4.5 CALCIUM CORRECTED 10.1 mg/dL 8.5-10.1 Lipase - 06/27/19 08:19 Lipase 215 U/L 8-78 Capillary blood glucose measurement by g lucometer (mass/volume) - 06/27/19 09:33 Capillary blood glucose measurement by glucometer (mas s/volume) > mg/dL 70-110 Arterial blood gas measurement - 09:34 Blood pCO2 11 mm[Hg] 35-45 Blood pO2 127 mm[Hg] 79-93 Arterial blood bicarbonate measurement (moles/volume) 3 mmol/L 23-27 Arterial blood base excess by calculation -25.7 mm ol/L -2.5-2.5 Arterial blood oxygen saturation measurement 98 % 94-100 * Inhaled oxygen flow rate NA NRG Arterial blood pH measurement with patient temperature correction 7.07 7.37-7.43 Arterial blood carbon dioxide, total measurement (mole s/volume) 3.4 mmol/L 21.0-31.0 Body site R BRACHIAL NRG Assessment of wrist artery patency prior to arterial p uncture YES-POS NRG Setting of ventilation mode NO NR G Measurement of body temperature 97.6 NRG Whole blood basic metabolic panel - 06/17 12/05 09:45 Serum or plasma sodium measurement (moles/volume) 132 mmol/L 135-145 Serum or plasma potassium measurement (moles/volume) 6.0 mmol/L 3.6-5.0 Serum or plasma chloride measurement (moles/volume) 94 mmol/L 98-107 Carbon dioxide < mmol/L 21-32 Serum or plasma anion gap determination (moles/volume) 33 mmol/L 5-14 Serum or plasma urea nitrogen measurement (mass/volume ) 52 mg/dL 7-18 Serum or plasma creatinine measurement (mass/volume) 2.74 mg/dL 0.60-1.30 Serum or plasma urea nitrogen/creatinine mass ratio 19 NRG Serum or plasma creatinine measurement w ith calculation of estimated glomerular filtration rate 18 NRG Serum or plasma glucose measurement (mass/volume) 852 mg/dL 70-105 Serum or plasma calcium measurement (mass/volume) 8.9 mg/dL 8.5-10.1 Blood lactic acid measurement (moles/vol ume) - 06/27/19 09:45 Blood lactic acid measurement (moles/volume) 5.75 mmol/L 0.50-2.00 Serum or plasma troponin i.cardiac measu rement (mass/volume) - 06/27/19 09:45 Serum or plasma troponin i.cardiac measurement (mass/v olume) < ng/mL <0.028 Bacterial blood culture - 06/27/19 10:15 Bacterial blood culture NG NRG Bacterial blood culture - 06/27/19 10:20 Bacterial blood culture NG NRG Automated blood complete blood count (he mogram) panel - 06/27/19 11:00 Blood leukocytes automated count (number/volume) 29.0 10*3/uL 4.3-11.0 Blood erythrocytes automated count (number/volume) 4.23 10*6/uL 4.35-5.85 Venous blood hemoglobin measurement (mass/volume) 13.2 g/dL 11.5-16.0 Blood hematocrit (volume fraction) 40 % 35-52 Automated erythrocyte mean corpuscular volume 95 [ foz_us] 80-99 Automated erythrocyte mean corpuscular h emoglobin (mass per erythrocyte) 31 pg 25-34 Automated erythrocyte mean corpuscular h emoglobin concentration measurement (mass/volume) 33 g/dL 32-36 Automated erythrocyte distribution width ratio 13. 3 % 10.0- 14.5 Automated blood platelet count (count/volume) 290 10*3/uL 130-400 Automated blood platelet mean volume measurement 10.6 [foz_us] 7.4-10.4 Whole blood basic metabolic panel - 06/17 12/05 11:00 Serum or plasma sodium measurement (moles/volume) 134 mmol/L 135-145 Serum or plasma potassium measurement (moles/volume) 5.1 mmol/L 3.6-5.0 Serum or plasma chloride measurement (moles/volume) 100 mmol/L 98-107 Carbon dioxide < mmol/L 21-32 Serum or plasma anion gap determination (moles/volume) 29 mmol/L 5-14 Serum or plasma urea nitrogen measurement (mass/volume ) 51 mg/dL 7-18 Serum or plasma creatinine measurement (mass/volume) 2.60 mg/dL 0.60-1.30 Serum or plasma urea nitrogen/creatinine mass ratio 20 NRG Serum or plasma creatinine measurement w ith calculation of estimated glomerular filtration rate 19 NRG Serum or plasma glucose measurement (mass/volume) 691 mg/dL 70-105 Serum or plasma calcium measurement (mass/volume) 8.3 mg/dL 8.5-10.1 Beta-hydroxybutyric acid measurement - 0 06/27/19 11:00 Beta-hydroxybutyric acid measurement 12.57 mmol/L 0.00-0.27 Hemoglobin A1c measurement - 06/27/19 11 :00 Blood hemoglobin A1C measurement (mass/volume) 14. 3 % 4.0- 5.6 MEAN BLOOD GLUCOSE 364 % <=126 Serum or plasma lactate measurement (mol es/volume) - 06/27/19 12:00 Serum or plasma lactate measurement (moles/volume) 2.87 mmol/L 0.50-2.00 Methicillin resistant Staphylococcus aur eus (MRSA) screening culture - 06/27/19 12:00 Methicillin resistant Staphylococcus aureus (MRSA) scr eening culture NEG NRG Capillary blood glucose measurement by g lucometer (mass/volume) - 06/27/19 12:05 Capillary blood glucose measurement by glucometer (mas s/volume) > mg/dL 70-110 Whole blood basic metabolic panel - 06/17 12/05 12:20 Serum or plasma sodium measurement (moles/volume) 136 mmol/L 135-145 Serum or plasma potassium measurement (moles/volume) 4.5 mmol/L 3.6-5.0 Serum or plasma chloride measurement (moles/volume) 104 mmol/L 98-107 Carbon dioxide < mmol/L 21-32 Serum or plasma anion gap determination (moles/volume) 27 mmol/L 5-14 Serum or plasma urea nitrogen measurement (mass/volume ) 48 mg/dL 7-18 Serum or plasma creatinine measurement (mass/volume) 2.42 mg/dL 0.60-1.30 Serum or plasma urea nitrogen/creatinine mass ratio 20 NRG Serum or plasma creatinine measurement w ith calculation of estimated glomerular filtration rate 21 NRG Serum or plasma glucose measurement (mass/volume) 649 mg/dL 70-105 Serum or plasma calcium measurement (mass/volume) 8.4 mg/dL 8.5-10.1 Capillary blood glucose measurement by g lucometer (mass/volume) - 06/27/19 13:29 Capillary blood glucose measurement by glucometer (mas s/volume) 541 mg/dL 70-110 Complete urinalysis with reflex to cultu re - 06/27/19 14:20 Urine color determination YELLOW NRG Urine clarity determination CLEAR NR G Urine pH measurement by test strip 5 5-9 Specific gravity of urine by test strip 1.020 1.016-1.022 Urine protein assay by test strip, semi-quantitative 3+ NEGATIVE Urine glucose detection by automated test strip 4+ NEGATIVE Erythrocytes detection in urine sediment by light micr oscopy 2+ NEGATIVE Urine ketones detection by automated test strip 4+ NEGATIVE Urine nitrite detection by test strip NEGATIVE NEGATIVE Urine total bilirubin detection by test strip NEGA TIVE NEGATIVE Urine urobilinogen measurement by automated test strip (mass/volume) NORMAL NORMAL Urine leukocyte esterase detection by dipstick NEG ATIVE NEGATIVE Automated urine sediment erythrocyte cou nt by microscopy (number/high power field) [HPF] NRG Automated urine sediment leukocyte count by microscopy (number/high power field) NONE NRG Bacteria detection in urine sediment by light microsco py TRACE NRG Squamous epithelial cells detection in u rine sediment by light microscopy 5-10 NRG Crystals detection in urine sediment by light microsco py NONE NRG Casts detection in urine sediment by light microscopy NONE NRG Mucus detection in urine sediment by light microscopy NEGATIVE NRG Complete urinalysis with reflex to culture NO NRG Urine drug screening test - 06/27/19 14: 20 Urine phencyclidine detection by screening method NEGATIVE NEGATIVE Urine benzodiazepines detection by screening method NEGATIVE NEGATIVE Urine cocaine detection NEGATIVE NEGATI VE Urine amphetamines detection by screening method N EGATIVE NEGATIVE Urine methamphetamine detection by screening method NEGATIVE NEGATIVE Urine cannabinoids detection by screening method N EGATIVE NEGATIVE Urine opiates detection by screening method NEGATI VE NEGATIVE Urine barbiturates detection NEGATIVE N EGATIVE Screening urine tricyclic antidepressants detection NEGATIVE NEGATIVE Urine methadone detection by screening method NEGA TIVE NEGATIVE Urine oxycodone detection NEGATIVE NEGA TIVE Urine propoxyphene detection NEGATIVE N EGATIVE Capillary blood glucose measurement by g lucometer (mass/volume) - 06/27/19 14:32 Capillary blood glucose measurement by glucometer (mas s/volume) 464 mg/dL 70-110 Whole blood basic metabolic panel - 06/17 12/05 15:10 Serum or plasma sodium measurement (moles/volume) 137 mmol/L 135-145 Serum or plasma potassium measurement (moles/volume) 4.7 mmol/L 3.6-5.0 Serum or plasma chloride measurement (moles/volume) 105 mmol/L 98-107 Carbon dioxide 5 mmol/L -32 Serum or plasma anion gap determination (moles/volume) 27 mmol/L 5-14 Serum or plasma urea nitrogen measurement (mass/volume ) 47 mg/dL 7-18 Serum or plasma creatinine measurement (mass/volume) 2.28 mg/dL 0.60-1.30 Serum or plasma urea nitrogen/creatinine mass ratio 21 NRG Serum or plasma creatinine measurement w ith calculation of estimated glomerular filtration rate 22 NRG Serum or plasma glucose measurement (mass/volume) 507 mg/dL 70-105 Serum or plasma calcium measurement (mass/volume) 8.8 mg/dL 8.5-10.1 Capillary blood glucose measurement by g lucometer (mass/volume) - 06/27/19 15:37 Capillary blood glucose measurement by glucometer (mas s/volume) 432 mg/dL 70-110 Capillary blood glucose measurement by g lucometer (mass/volume) - 06/27/19 16:30 Capillary blood glucose measurement by glucometer (mas s/volume) 377 mg/dL 70-110 Capillary blood glucose measurement by g lucometer (mass/volume) - 06/27/19 17:35 Capillary blood glucose measurement by glucometer (mas s/volume) 382 mg/dL 70-110 Capillary blood glucose measurement by g lucometer (mass/volume) - 06/27/19 18:41 Capillary blood glucose measurement by glucometer (mas s/volume) 282 mg/dL 70-110 Capillary blood glucose measurement by g lucometer (mass/volume) - 06/27/19 19:37 Capillary blood glucose measurement by glucometer (mas s/volume) 210 mg/dL 70-110 Whole blood basic metabolic panel - 06/17 12/05 20:05 Serum or plasma sodium measurement (moles/volume) 136 mmol/L 135-145 Serum or plasma potassium measurement (moles/volume) 4.9 mmol/L 3.6-5.0 Serum or plasma chloride measurement (moles/volume) 107 mmol/L 98-107 Carbon dioxide 14 mmol/L -32 Serum or plasma anion gap determination (moles/volume) 15 mmol/L 5-14 Serum or plasma urea nitrogen measurement (mass/volume ) 43 mg/dL 7-18 Serum or plasma creatinine measurement (mass/volume) 1.89 mg/dL 0.60-1.30 Serum or plasma urea nitrogen/creatinine mass ratio 23 NRG Serum or plasma creatinine measurement w ith calculation of estimated glomerular filtration rate 28 NRG Serum or plasma glucose measurement (mass/volume) 263 mg/dL 70-105 Serum or plasma calcium measurement (mass/volume) 8.5 mg/dL 8.5-10.1 Capillary blood glucose measurement by g lucometer (mass/volume) - 06/27/19 20:26 Capillary blood glucose measurement by glucometer (mas s/volume) 286 mg/dL 70-110 Capillary blood glucose measurement by g lucometer (mass/volume) - 06/27/19 21:31 Capillary blood glucose measurement by glucometer (mas s/volume) 238 mg/dL 70-110 Capillary blood glucose measurement by g lucometer (mass/volume) - 06/27/19 22:44 Capillary blood glucose measurement by glucometer (mas s/volume) 244 mg/dL 70-110 Capillary blood glucose measurement by g lucometer (mass/volume) - 06/27/19 23:28 Capillary blood glucose measurement by glucometer (mas s/volume) 208 mg/dL 70-110 Capillary blood glucose measurement by g lucometer (mass/volume) - 06/28/19 00:35 Capillary blood glucose measurement by glucometer (mas s/volume) 173 mg/dL 70-110 Capillary blood glucose measurement by g lucometer (mass/volume) - 06/28/19 01:38 Capillary blood glucose measurement by glucometer (mas s/volume) 160 mg/dL 70-110 Capillary blood glucose measurement by g lucometer (mass/volume) - 06/28/19 02:34 Capillary blood glucose measurement by glucometer (mas s/volume) 155 mg/dL 70-110 Capillary blood glucose measurement by g lucometer (mass/volume) - 06/28/19 03:31 Capillary blood glucose measurement by glucometer (mas s/volume) 119 mg/dL 70-110 Complete blood count (CBC) with automate d white blood cell (WBC) differential - 06/28/19 03:39 Blood leukocytes automated count (number/volume) 16.9 10*3/uL 4.3-11.0 Blood erythrocytes automated count (number/volume) 4.07 10*6/uL 4.35-5.85 Venous blood hemoglobin measurement (mass/volume) 12.8 g/dL 11.5-16.0 Blood hematocrit (volume fraction) 37 % 35-52 Automated erythrocyte mean corpuscular volume 90 [ foz_us] 80-99 Automated erythrocyte mean corpuscular h emoglobin (mass per erythrocyte) 31 pg 25-34 Automated erythrocyte mean corpuscular h emoglobin concentration measurement (mass/volume) 35 g/dL 32-36 Automated erythrocyte distribution width ratio 13. 3 % 10.0- 14.5 Automated blood platelet count (count/volume) 230 10*3/uL 130-400 Automated blood platelet mean volume measurement 10.1 [foz_us] 7.4-10.4 Automated blood neutrophils/100 leukocytes 83 % 42-75 Automated blood lymphocytes/100 leukocytes 13 % 12-44 Blood monocytes/100 leukocytes 4 % 0-12 Automated blood eosinophils/100 leukocytes 0 % 0-10 Automated blood basophils/100 leukocytes 0 % 0-10 Blood neutrophils automated count (number/volume) 14.0 10*3 1.8-7.8 Blood lymphocytes automated count (number/volume) 2.2 10*3 1.0-4.0 Blood monocytes automated count (number/volume) 0. 6 10*3 0.0-1.0 Automated eosinophil count 0.0 10*3/uL 0 .0-0.3 Automated blood basophil count (count/volume) 0.0 10*3/uL 0.0-0.1 Comprehensive metabolic panel - 06/28/19 03:39 Serum or plasma sodium measurement (moles/volume) 136 mmol/L 135-145 Serum or plasma potassium measurement (moles/volume) 4.2 mmol/L 3.6-5.0 Serum or plasma chloride measurement (moles/volume) 109 mmol/L 98-107 Carbon dioxide 19 mmol/L 21-32 Serum or plasma anion gap determination (moles/volume) 8 mmol/L 5-14 Serum or plasma urea nitrogen measurement (mass/volume ) 35 mg/dL 7-18 Serum or plasma creatinine measurement (mass/volume) 1.49 mg/dL 0.60-1.30 Serum or plasma urea nitrogen/creatinine mass ratio 23 NRG Serum or plasma creatinine measurement w ith calculation of estimated glomerular filtration rate 36 NRG Serum or plasma glucose measurement (mass/volume) 112 mg/dL 70-105 Serum or plasma calcium measurement (mass/volume) 8.5 mg/dL 8.5-10.1 Serum or plasma total bilirubin measurement (mass/volu me) 0.5 mg/dL 0.1-1.0 Serum or plasma alkaline phosphatase cody surement (enzymatic activity/volume) 84 U/L 40-136 Serum or plasma aspartate aminotransfera se measurement (enzymatic activity/volume) 36 U/L 5-34 Serum or plasma alanine aminotransferase measurement (enzymatic activity/volume) 51 U/L 0-55 Serum or plasma protein measurement (mass/volume) 6.1 g/dL 6.4-8.2 Serum or plasma albumin measurement (mass/volume) 3.0 g/dL 3.2-4.5 CALCIUM CORRECTED 9.3 mg/dL 8.5-10.1 Serum or plasma phosphate measurement (m ass/volume) - 06/28/19 03:39 Serum or plasma phosphate measurement (mass/volume) 1.9 mg/dL 2.3-4.7 Magnesium - 06/28/19 03:39 Magnesium 1.8 mg/dL 1.8-2.4 Beta-hydroxybutyric acid measurement - 0 06/28/19 03:39 Beta-hydroxybutyric acid measurement 0.12 mmol/L 0.00-0.27 PT panel in platelet poor plasma by coag ulation assay - 06/28/19 03:39 Prothrombin time (PT) in platelet poor plasma by coagu lation assay 12.1 s 12.2-14.7 INR in platelet poor plasma or blood by coagulation as say 0.9 0.8-1.4 Capillary blood glucose measurement by g lucometer (mass/volume) - 06/28/19 04:31 Capillary blood glucose measurement by glucometer (mas s/volume) 97 mg/dL 70-110 Capillary blood glucose measurement by g lucometer (mass/volume) - 06/28/19 06:00 Capillary blood glucose measurement by glucometer (mas s/volume) 125 mg/dL 70-110 Capillary blood glucose measurement by g lucometer (mass/volume) - 06/28/19 06:59 Capillary blood glucose measurement by glucometer (mas s/volume) 129 mg/dL 70-110 Whole blood basic metabolic panel - 06/17 01/05 07:05 Serum or plasma sodium measurement (moles/volume) 137 mmol/L 135-145 Serum or plasma potassium measurement (moles/volume) 4.4 mmol/L 3.6-5.0 Serum or plasma chloride measurement (moles/volume) 109 mmol/L 98-107 Carbon dioxide 19 mmol/L 21-32 Serum or plasma anion gap determination (moles/volume) 9 mmol/L 5-14 Serum or plasma urea nitrogen measurement (mass/volume ) 31 mg/dL 7-18 Serum or plasma creatinine measurement (mass/volume) 1.40 mg/dL 0.60-1.30 Serum or plasma urea nitrogen/creatinine mass ratio 22 NRG Serum or plasma creatinine measurement w ith calculation of estimated glomerular filtration rate 39 NRG Serum or plasma glucose measurement (mass/volume) 159 mg/dL 70-105 Serum or plasma calcium measurement (mass/volume) 8.3 mg/dL 8.5-10.1 Serum or plasma phosphate measurement (m ass/volume) - 06/28/19 07:05 Serum or plasma phosphate measurement (mass/volume) 1.7 mg/dL 2.3-4.7 Magnesium - 06/28/19 07:05 Magnesium 1.8 mg/dL 1.8-2.4 Beta-hydroxybutyric acid measurement - 0 06/28/19 07:05 Beta-hydroxybutyric acid measurement 0.85 mmol/L 0.00-0.27 Capillary blood glucose measurement by g lucometer (mass/volume) - 06/28/19 10:15 Capillary blood glucose measurement by glucometer (mas s/volume) 175 mg/dL 70-110 Capillary blood glucose measurement by g lucometer (mass/volume) - 06/28/19 11:22 Capillary blood glucose measurement by glucometer (mas s/volume) 169 mg/dL 70-110 Capillary blood glucose measurement by g lucometer (mass/volume) - 06/28/19 13:13 Capillary blood glucose measurement by glucometer (mas s/volume) 203 mg/dL 70-110 Capillary blood glucose measurement by g lucometer (mass/volume) - 06/28/19 15:52 Capillary blood glucose measurement by glucometer (mas s/volume) 229 mg/dL 70-110 Capillary blood glucose measurement by g lucometer (mass/volume) - 06/28/19 21:16 Capillary blood glucose measurement by glucometer (mas s/volume) 194 mg/dL 70-110 Capillary blood glucose measurement by g lucometer (mass/volume) - 06/29/19 06:12 Capillary blood glucose measurement by glucometer (mas s/volume) 48 mg/dL 70-110 Complete blood count (CBC) with automate d white blood cell (WBC) differential - 06/29/19 08:40 Blood leukocytes automated count (number/volume) 10.7 10*3/uL 4.3-11.0 Blood erythrocytes automated count (number/volume) 3.97 10*6/uL 4.35-5.85 Venous blood hemoglobin measurement (mass/volume) 12.2 g/dL 11.5-16.0 Blood hematocrit (volume fraction) 37 % 35-52 Automated erythrocyte mean corpuscular volume 93 [ foz_us] 80-99 Automated erythrocyte mean corpuscular h emoglobin (mass per erythrocyte) 31 pg 25-34 Automated erythrocyte mean corpuscular h emoglobin concentration measurement (mass/volume) 33 g/dL 32-36 Automated erythrocyte distribution width ratio 14. 9 % 10.0- 14.5 Automated blood platelet count (count/volume) 194 10*3/uL 130-400 Automated blood platelet mean volume measurement 10.0 [foz_us] 7.4-10.4 Automated blood neutrophils/100 leukocytes 79 % 42-75 Automated blood lymphocytes/100 leukocytes 16 % 12-44 Blood monocytes/100 leukocytes 5 % 0-12 Automated blood eosinophils/100 leukocytes 0 % 0-10 Automated blood basophils/100 leukocytes 0 % 0-10 Blood neutrophils automated count (number/volume) 8.4 10*3 1.8-7.8 Blood lymphocytes automated count (number/volume) 1.7 10*3 1.0-4.0 Blood monocytes automated count (number/volume) 0. 5 10*3 0.0-1.0 Automated eosinophil count 0.0 10*3/uL 0 .0-0.3 Automated blood basophil count (count/volume) 0.0 10*3/uL 0.0-0.1 Whole blood basic metabolic panel - 06/17 02/02 08:40 Serum or plasma sodium measurement (moles/volume) 142 mmol/L 135-145 Serum or plasma potassium measurement (moles/volume) 3.5 mmol/L 3.6-5.0 Serum or plasma chloride measurement (moles/volume) 112 mmol/L 98-107 Carbon dioxide 21 mmol/L 21-32 Serum or plasma anion gap determination (moles/volume) 9 mmol/L 5-14 Serum or plasma urea nitrogen measurement (mass/volume ) 21 mg/dL 7-18 Serum or plasma creatinine measurement (mass/volume) 0.96 mg/dL 0.60-1.30 Serum or plasma urea nitrogen/creatinine mass ratio 22 NRG Serum or plasma creatinine measurement w ith calculation of estimated glomerular filtration rate 60 NRG Serum or plasma glucose measurement (mass/volume) 93 mg/dL 70-105 Serum or plasma calcium measurement (mass/volume) 8.5 mg/dL 8.5-10.1 Beta-hydroxybutyric acid measurement - 0 06/29/19 08:40 Beta-hydroxybutyric acid measurement 0.11 mmol/L 0.00-0.27 Serum or plasma troponin i.cardiac measu rement (mass/volume) - 06/29/19 08:40 Serum or plasma troponin i.cardiac measurement (mass/v olume) < ng/mL <0.028 Capillary blood glucose measurement by g lucometer (mass/volume) - 06/29/19 10:15 Capillary blood glucose measurement by glucometer (mas s/volume) 129 mg/dL 70-110 Capillary blood glucose measurement by g lucometer (mass/volume) - 06/29/19 15:53 Capillary blood glucose measurement by glucometer (mas s/volume) 292 mg/dL 70-110 Capillary blood glucose measurement by g lucometer (mass/volume) - 06/29/19 20:15 Capillary blood glucose measurement by glucometer (mas s/volume) 152 mg/dL 70-110 Capillary blood glucose measurement by g lucometer (mass/volume) - 06/30/19 06:00 Capillary blood glucose measurement by glucometer (mas s/volume) 306 mg/dL 70-110 Capillary blood glucose measurement by g lucometer (mass/volume) - 06/30/19 11:29 Capillary blood glucose measurement by glucometer (mas s/volume) 184 mg/dL 70-110 Whole blood basic metabolic panel - 06/17 03/05 11:55 Serum or plasma sodium measurement (moles/volume) 136 mmol/L 135-145 Serum or plasma potassium measurement (moles/volume) 3.7 mmol/L 3.6-5.0 Serum or plasma chloride measurement (moles/volume) 105 mmol/L 98-107 Carbon dioxide 24 mmol/L 21-32 Serum or plasma anion gap determination (moles/volume) 7 mmol/L 5-14 Serum or plasma urea nitrogen measurement (mass/volume ) 16 mg/dL 7-18 Serum or plasma creatinine measurement (mass/volume) 0.92 mg/dL 0.60-1.30 Serum or plasma urea nitrogen/creatinine mass ratio 17 NRG Serum or plasma creatinine measurement w ith calculation of estimated glomerular filtration rate > NRG Serum or plasma glucose measurement (mass/volume) 187 mg/dL 70-105 Serum or plasma calcium measurement (mass/volume) 7.8 mg/dL 8.5-10.1 Beta-hydroxybutyric acid measurement - 0 06/30/19 11:55 Beta-hydroxybutyric acid measurement 0.12 mmol/L 0.00-0.27 Complete blood count (CBC) with automate d white blood cell (WBC) differential - 11/19/19 18:40 Blood leukocytes automated count (number/volume) 9.2 10*3/uL 4.3-11.0 Blood erythrocytes automated count (number/volume) 4.17 10*6/uL 4.35-5.85 Venous blood hemoglobin measurement (mass/volume) 12.7 g/dL 11.5-16.0 Blood hematocrit (volume fraction) 39 % 35-52 Automated erythrocyte mean corpuscular volume 93 [ foz_us] 80-99 Automated erythrocyte mean corpuscular h emoglobin (mass per erythrocyte) 30 pg 25-34 Automated erythrocyte mean corpuscular h emoglobin concentration measurement (mass/volume) 33 g/dL 32-36 Automated erythrocyte distribution width ratio 13. 3 % 10.0- 14.5 Automated blood platelet count (count/volume) 359 10*3/uL 130-400 Automated blood platelet mean volume measurement 9.6 [foz_us] 7.4-10.4 Automated blood neutrophils/100 leukocytes 69 % 42-75 Automated blood lymphocytes/100 leukocytes 24 % 12-44 Blood monocytes/100 leukocytes 7 % 0-12 Automated blood eosinophils/100 leukocytes 0 % 0-10 Automated blood basophils/100 leukocytes 0 % 0-10 Blood neutrophils automated count (number/volume) 6.4 10*3 1.8-7.8 Blood lymphocytes automated count (number/volume) 2.2 10*3 1.0-4.0 Blood monocytes automated count (number/volume) 0. 6 10*3 0.0-1.0 Automated eosinophil count 0.0 10*3/uL 0 .0-0.3 Automated blood basophil count (count/volume) 0.0 10*3/uL 0.0-0.1 Comprehensive metabolic panel - 11/19/19 18:40 Serum or plasma sodium measurement (moles/volume) 127 mmol/L 135-145 Serum or plasma potassium measurement (moles/volume) 3.7 mmol/L 3.6-5.0 Serum or plasma chloride measurement (moles/volume) 94 mmol/L 98-107 Carbon dioxide 13 mmol/L 21-32 Serum or plasma anion gap determination (moles/volume) 20 mmol/L 5-14 Serum or plasma urea nitrogen measurement (mass/volume ) 27 mg/dL 7-18 Serum or plasma creatinine measurement (mass/volume) 1.68 mg/dL 0.60-1.30 Serum or plasma urea nitrogen/creatinine mass ratio 16 NRG Serum or plasma creatinine measurement w ith calculation of estimated glomerular filtration rate 32 NRG Serum or plasma glucose measurement (mass/volume) 690 mg/dL 70-105 Serum or plasma calcium measurement (mass/volume) 8.8 mg/dL 8.5-10.1 Serum or plasma total bilirubin measurement (mass/volu me) 0.5 mg/dL 0.1-1.0 Serum or plasma alkaline phosphatase cody surement (enzymatic activity/volume) 160 U/L 40-136 Serum or plasma aspartate aminotransfera se measurement (enzymatic activity/volume) 80 U/L 5-34 Serum or plasma alanine aminotransferase measurement (enzymatic activity/volume) 131 U/L 0-55 Serum or plasma protein measurement (mass/volume) 6.4 g/dL 6.4-8.2 Serum or plasma albumin measurement (mass/volume) 2.6 g/dL 3.2-4.5 CALCIUM CORRECTED 9.9 mg/dL 8.5-10.1 Serum or plasma lithium measurement (mol es/volume) - 11/19/19 18:40 BNP PT 244.9 pg/mL <100.0 THYROID STIMULATING HORMONE - 11/19/19 1 8:40 THYROID STIMULATING HORMONE 1.02 u[iU]/mL 0.35-4.94 Serum or plasma thyroxine (T4) free zack urement (mass/volume) - 11/19/19 18:40 Serum or plasma thyroxine (T4) free measurement (mass/ volume) 0.84 ng/dL 0.70-1.48 Beta-hydroxybutyric acid measurement - 0 11/19/19 18:40 Beta-hydroxybutyric acid measurement 5.37 mmol/L 0.00-0.27 Arterial blood gas measurement - 0 18:45 Blood pCO2 26 mm[Hg] 35-45 Blood pO2 98 mm[Hg] 79-93 Arterial blood bicarbonate measurement (moles/volume) 14 mmol/L 23-27 Arterial blood base excess by calculation -10.7 mm ol/L -2.5-2.5 Arterial blood oxygen saturation measurement 97 % 94-100 * Inhaled oxygen flow rate 21% FI02 NRG Arterial blood pH measurement with patient temperature correction 7.34 7.37-7.43 Arterial blood carbon dioxide, total measurement (mole s/volume) 14.7 mmol/L 21.0-31.0 Body site LEFT RADIAL NRG Assessment of wrist artery patency prior to arterial p uncture POSITIVE NRG Setting of ventilation mode NO NR G Measurement of body temperature 36.8 NRG Urine drug screening test - 11/19/19 20: 05 Urine phencyclidine detection by screening method NEGATIVE NEGATIVE Urine benzodiazepines detection by screening method NEGATIVE NEGATIVE Urine cocaine detection NEGATIVE NEGATI VE Urine amphetamines detection by screening method P OSITIVE NEGATIVE Urine methamphetamine detection by screening method POSITIVE NEGATIVE Urine cannabinoids detection by screening method N EGATIVE NEGATIVE Urine opiates detection by screening method NEGATI VE NEGATIVE Urine barbiturates detection NEGATIVE N EGATIVE Screening urine tricyclic antidepressants detection NEGATIVE NEGATIVE Urine methadone detection by screening method NEGA TIVE NEGATIVE Urine oxycodone detection NEGATIVE NEGA TIVE Urine propoxyphene detection NEGATIVE N EGATIVE Complete urinalysis with reflex to cultu re - 11/19/19 20:05 Urine color determination YELLOW NRG Urine clarity determination CLEAR NR G Urine pH measurement by test strip 5.5 5-9 Specific gravity of urine by test strip 1.020 1.016-1.022 Urine protein assay by test strip, semi-quantitative 2+ NEGATIVE Urine glucose detection by automated test strip 2+ NEGATIVE Erythrocytes detection in urine sediment by light micr oscopy 1+ NEGATIVE Urine ketones detection by automated test strip 1+ NEGATIVE Urine nitrite detection by test strip NEGATIVE NEGATIVE Urine total bilirubin detection by test strip NEGA TIVE NEGATIVE Urine urobilinogen measurement by automated test strip (mass/volume) 0.2 mg/dL < = 1.0 Urine leukocyte esterase detection by dipstick NEG ATIVE NEGATIVE Automated urine sediment erythrocyte cou nt by microscopy (number/high power field) [HPF] NRG Automated urine sediment leukocyte count by microscopy (number/high power field) [HPF] NRG Bacteria detection in urine sediment by light microsco py FEW NRG Squamous epithelial cells detection in u rine sediment by light microscopy 10-25 NRG Crystals detection in urine sediment by light microsco py PRESENT NRG Casts detection in urine sediment by light microscopy NONE NRG Mucus detection in urine sediment by light microscopy NEGATIVE NRG Complete urinalysis with reflex to culture YES NRG Amorphous sediment detection in urine sediment by ligh t microscopy FEW JOSH URATES NRG Bacterial urine culture - 11/19/19 20:05 Bacterial urine culture 3 OR MORE NRG COLONY COUNT 50,000 CFU/ML NRG FTX;REPORTABLE GRAM POSITIVE ISOLATES N RG Capillary blood glucose measurement by g lucometer (mass/volume) - 12/27/19 02:13 Capillary blood glucose measurement by glucometer (mas s/volume) > mg/dL 70-110 Complete blood count (CBC) with automate d white blood cell (WBC) differential - 12/27/19 02:19 Blood leukocytes automated count (number/volume) 32.5 10*3/uL 4.3-11.0 Blood erythrocytes automated count (number/volume) 3.73 10*6/uL 4.35-5.85 Venous blood hemoglobin measurement (mass/volume) 12.1 g/dL 11.5-16.0 Blood hematocrit (volume fraction) 37 % 35-52 Automated erythrocyte mean corpuscular volume 100 [foz_us] 80-99 Automated erythrocyte mean corpuscular h emoglobin (mass per erythrocyte) 32 pg 25-34 Automated erythrocyte mean corpuscular h emoglobin concentration measurement (mass/volume) 33 g/dL 32-36 Automated erythrocyte distribution width ratio 14. 1 % 10.0- 14.5 Automated blood platelet count (count/volume) 326 10*3/uL 130-400 Automated blood platelet mean volume measurement 10.2 [foz_us] 7.4-10.4 Automated blood neutrophils/100 leukocytes 80 % 42-75 Automated blood lymphocytes/100 leukocytes 15 % 12-44 Blood monocytes/100 leukocytes 5 % 0-12 Automated blood eosinophils/100 leukocytes 0 % 0-10 Automated blood basophils/100 leukocytes 0 % 0-10 Blood neutrophils automated count (number/volume) 25.9 10*3 1.8-7.8 Blood lymphocytes automated count (number/volume) 4.8 10*3 1.0-4.0 Blood monocytes automated count (number/volume) 1. 7 10*3 0.0-1.0 Automated eosinophil count 0.0 10*3/uL 0 .0-0.3 Automated blood basophil count (count/volume) 0.1 10*3/uL 0.0-0.1 PT panel in platelet poor plasma by coag ulation assay - 12/27/19 02:19 Prothrombin time (PT) in platelet poor plasma by coagu lation assay 14.0 s 12.2-14.7 INR in platelet poor plasma or blood by coagulation as say 1.0 0.8-1.4 Activated partial thromboplastin time (a PTT) in platelet poor plasma bycoagulation assay - 12/27/19 02:19 Activated partial thromboplastin time (a PTT) in platelet poor plasma bycoagulation assay 27 s 24-35 Manual absolute plasma cell count - 12/18 02:19 Blood monocytes/100 leukocytes 5 % NRG Manual blood segmented neutrophils/100 leukocytes 72 % NRG Blood band neutrophils/100 leukocytes 10 % NRG Manual blood lymphocytes/100 leukocytes 11 % NRG Blood erythrocyte morphology finding identification NORMAL NRG Manual blood metamyelocytes/100 leukocytes 2 % NRG Influenza virus A and B antigen detectio n - 12/27/19 02:19 FLU RESULT NEGATIVE FOR INFLUENZA A AND B ANTIGENS BY IA NRG Blood lactic acid measurement (moles/vol ume) - 12/27/19 02:19 Blood lactic acid measurement (moles/volume) 6.69 mmol/L 0.50-2.00 Comprehensive metabolic panel - 12/27/19 02:19 Serum or plasma sodium measurement (moles/volume) 123 mmol/L 135-145 Serum or plasma potassium measurement (moles/volume) 6.1 mmol/L 3.6-5.0 Serum or plasma chloride measurement (moles/volume) 82 mmol/L 98-107 Carbon dioxide < mmol/L 21-32 Serum or plasma anion gap determination (moles/volume) 36 mmol/L 5-14 Serum or plasma urea nitrogen measurement (mass/volume ) 58 mg/dL 7-18 Serum or plasma creatinine measurement (mass/volume) 3.05 mg/dL 0.60-1.30 Serum or plasma urea nitrogen/creatinine mass ratio 19 NRG Serum or plasma creatinine measurement w ith calculation of estimated glomerular filtration rate 16 NRG Serum or plasma glucose measurement (mass/volume) 1040 mg/dL 70-105 Serum or plasma calcium measurement (mass/volume) 9.6 mg/dL 8.5-10.1 Serum or plasma total bilirubin measurement (mass/volu me) 0.2 mg/dL 0.1-1.0 Serum or plasma alkaline phosphatase cody surement (enzymatic activity/volume) 130 U/L 40-136 Serum or plasma aspartate aminotransfera se measurement (enzymatic activity/volume) 23 U/L 5-34 Serum or plasma alanine aminotransferase measurement (enzymatic activity/volume) 39 U/L 0-55 Serum or plasma protein measurement (mass/volume) 6.4 g/dL 6.4-8.2 Serum or plasma albumin measurement (mass/volume) 2.8 g/dL 3.2-4.5 CALCIUM CORRECTED 10.6 mg/dL 8.5-10.1 Serum or plasma creatine kinase measurem ent (enzymatic activity/volume) - 12/27/19 02:19 Serum or plasma creatine kinase measurem ent (enzymatic activity/volume) 118 U/L 29-168 Serum or plasma troponin i.cardiac measu rement (mass/volume) - 12/27/19 02:19 Serum or plasma troponin i.cardiac measurement (mass/v olume) < ng/mL <0.028 Serum or plasma ethanol measurement (mas s/volume) - 12/27/19 02:19 Serum or plasma ethanol measurement (mass/volume) < mg/dL <10 Bacterial blood culture - 12/27/19 02:19 Bacterial blood culture NG NRG Complete urinalysis with reflex to cultu re - 12/27/19 02:31 Urine color determination YELLOW NRG Urine clarity determination SL CLOUDY N RG Urine pH measurement by test strip 5.0 5-9 Specific gravity of urine by test strip >= 1.016-1.022 Urine protein assay by test strip, semi-quantitative 3+ NEGATIVE Urine glucose detection by automated test strip 3+ NEGATIVE Erythrocytes detection in urine sediment by light micr oscopy 1+ NEGATIVE Urine ketones detection by automated test strip 2+ NEGATIVE Urine nitrite detection by test strip NEGATIVE NEGATIVE Urine total bilirubin detection by test strip NEGA TIVE NEGATIVE Urine urobilinogen measurement by automated test strip (mass/volume) 0.2 mg/dL < = 1.0 Urine leukocyte esterase detection by dipstick NEG ATIVE NEGATIVE Automated urine sediment erythrocyte cou nt by microscopy (number/high power field) [HPF] NRG Automated urine sediment leukocyte count by microscopy (number/high power field) [HPF] NRG Bacteria detection in urine sediment by light microsco py TRACE NRG Squamous epithelial cells detection in u rine sediment by light microscopy 0-2 NRG Crystals detection in urine sediment by light microsco py PRESENT NRG Casts detection in urine sediment by light microscopy NONE NRG Mucus detection in urine sediment by light microscopy NEGATIVE NRG Complete urinalysis with reflex to culture YES NRG Amorphous sediment detection in urine sediment by ligh t microscopy MOD JOSH URATES NRG Urine drug screening test - 12/27/19 02: 31 Urine phencyclidine detection by screening method NEGATIVE NEGATIVE Urine benzodiazepines detection by screening method NEGATIVE NEGATIVE Urine cocaine detection NEGATIVE NEGATI VE Urine amphetamines detection by screening method P OSITIVE NEGATIVE Urine methamphetamine detection by screening method POSITIVE NEGATIVE Urine cannabinoids detection by screening method N EGATIVE NEGATIVE Urine opiates detection by screening method NEGATI VE NEGATIVE Urine barbiturates detection NEGATIVE N EGATIVE Screening urine tricyclic antidepressants detection NEGATIVE NEGATIVE Urine methadone detection by screening method NEGA TIVE NEGATIVE Urine oxycodone detection NEGATIVE NEGA TIVE Urine propoxyphene detection NEGATIVE N EGATIVE Bacterial urine culture - 12/27/19 02:31 Bacterial urine culture NG NRG Bacterial blood culture - 12/27/19 02:40 Bacterial blood culture NG NRG Arterial blood gas measurement - 0 02:53 Blood pCO2 11 mm[Hg] 35-45 Blood pO2 130 mm[Hg] 79-93 Arterial blood bicarbonate measurement (moles/volume) 3 mmol/L 23-27 Arterial blood base excess by calculation -26.3 mm ol/L -2.5-2.5 Arterial blood oxygen saturation measurement 98 % 94-100 * Inhaled oxygen flow rate 2L O2 NRG Arterial blood pH measurement with patient temperature correction 7.05 7.37-7.43 Arterial blood carbon dioxide, total measurement (mole s/volume) 3.3 mmol/L 21.0-31.0 Body site LEFT RADIAL NRG Assessment of wrist artery patency prior to arterial p uncture POSITIVE NRG Setting of ventilation mode NO NR G Measurement of body temperature 34.4 NRG Capillary blood glucose measurement by g lucometer (mass/volume) - 12/27/19 04:20 Capillary blood glucose measurement by glucometer (mas s/volume) > mg/dL 70-110 Serum or plasma lactate measurement (mol es/volume) - 12/27/19 04:23 Serum or plasma lactate measurement (moles/volume) 2.72 mmol/L 0.50-2.00 Capillary blood glucose measurement by g lucometer (mass/volume) - 12/27/19 05:23 Capillary blood glucose measurement by glucometer (mas s/volume) > mg/dL 70-110 Complete blood count (CBC) with automate d white blood cell (WBC) differential - 12/27/19 06:00 Blood leukocytes automated count (number/volume) 37.4 10*3/uL 4.3-11.0 Blood erythrocytes automated count (number/volume) 3.16 10*6/uL 4.35-5.85 Venous blood hemoglobin measurement (mass/volume) 10.0 g/dL 11.5-16.0 Blood hematocrit (volume fraction) 31 % 35-52 Automated erythrocyte mean corpuscular volume 98 [ foz_us] 80-99 Automated erythrocyte mean corpuscular h emoglobin (mass per erythrocyte) 32 pg 25-34 Automated erythrocyte mean corpuscular h emoglobin concentration measurement (mass/volume) 33 g/dL 32-36 Automated erythrocyte distribution width ratio 14. 0 % 10.0- 14.5 Automated blood platelet count (count/volume) 293 10*3/uL 130-400 Automated blood platelet mean volume measurement 10.0 [foz_us] 7.4-10.4 Automated blood neutrophils/100 leukocytes 76 % 42-75 Automated blood lymphocytes/100 leukocytes 18 % 12-44 Blood monocytes/100 leukocytes 5 % 0-12 Automated blood eosinophils/100 leukocytes 0 % 0-10 Automated blood basophils/100 leukocytes 0 % 0-10 Blood neutrophils automated count (number/volume) 28.5 10*3 1.8-7.8 Blood lymphocytes automated count (number/volume) 6.9 10*3 1.0-4.0 Blood monocytes automated count (number/volume) 1. 9 10*3 0.0-1.0 Automated eosinophil count 0.1 10*3/uL 0 .0-0.3 Automated blood basophil count (count/volume) 0.1 10*3/uL 0.0-0.1 Comprehensive metabolic panel - 12/27/19 06:00 Serum or plasma sodium measurement (moles/volume) 128 mmol/L 135-145 Serum or plasma potassium measurement (moles/volume) 5.0 mmol/L 3.6-5.0 Serum or plasma chloride measurement (moles/volume) 96 mmol/L 98-107 Carbon dioxide < mmol/L 21-32 Serum or plasma anion gap determination (moles/volume) 27 mmol/L 5-14 Serum or plasma urea nitrogen measurement (mass/volume ) 56 mg/dL 7-18 Serum or plasma creatinine measurement (mass/volume) 2.64 mg/dL 0.60-1.30 Serum or plasma urea nitrogen/creatinine mass ratio 21 NRG Serum or plasma creatinine measurement w ith calculation of estimated glomerular filtration rate 19 NRG Serum or plasma glucose measurement (mass/volume) 787 mg/dL 70-105 Serum or plasma calcium measurement (mass/volume) 7.6 mg/dL 8.5-10.1 Serum or plasma total bilirubin measurement (mass/volu me) 0.2 mg/dL 0.1-1.0 Serum or plasma alkaline phosphatase cody surement (enzymatic activity/volume) 105 U/L 40-136 Serum or plasma aspartate aminotransfera se measurement (enzymatic activity/volume) 21 U/L 5-34 Serum or plasma alanine aminotransferase measurement (enzymatic activity/volume) 32 U/L 0-55 Serum or plasma protein measurement (mass/volume) 5.0 g/dL 6.4-8.2 Serum or plasma albumin measurement (mass/volume) 2.2 g/dL 3.2-4.5 CALCIUM CORRECTED 9.0 mg/dL 8.5-10.1 Serum or plasma phosphate measurement (m ass/volume) - 12/27/19 06:00 Serum or plasma phosphate measurement (mass/volume) 9.1 mg/dL 2.3-4.7 Magnesium - 12/27/19 06:00 Magnesium 2.3 mg/dL 1.6-2.4 Serum or plasma triglyceride measurement (mass/volume) - 12/27/19 06:00 Serum or plasma triglyceride measurement (mass/volume) 927 mg/dL <150 Beta-hydroxybutyric acid measurement - 0 12/27/19 06:00 Beta-hydroxybutyric acid measurement 12.29 mmol/L 0.00-0.27 Hemoglobin A1c measurement - 12/27/19 06 :00 Blood hemoglobin A1C measurement (mass/volume) 14. 8 % 4.0- 5.6 MEAN BLOOD GLUCOSE 378 % <=126 Methicillin resistant Staphylococcus aur eus (MRSA) screening culture - 12/27/19 06:00 Methicillin resistant Staphylococcus aureus (MRSA) scr eening culture NEG NRG Complete urinalysis with reflex to cultu re - 12/27/19 06:19 Urine color determination YELLOW NRG Urine clarity determination CLEAR NR G Urine pH measurement by test strip 5.0 5-9 Specific gravity of urine by test strip >= 1.016-1.022 Urine protein assay by test strip, semi-quantitative 2+ NEGATIVE Urine glucose detection by automated test strip 3+ NEGATIVE Erythrocytes detection in urine sediment by light micr oscopy 1+ NEGATIVE Urine ketones detection by automated test strip 2+ NEGATIVE Urine nitrite detection by test strip NEGATIVE NEGATIVE Urine total bilirubin detection by test strip NEGA TIVE NEGATIVE Urine urobilinogen measurement by automated test strip (mass/volume) 0.2 mg/dL < = 1.0 Urine leukocyte esterase detection by dipstick NEG ATIVE NEGATIVE Automated urine sediment erythrocyte cou nt by microscopy (number/high power field) [HPF] NRG Automated urine sediment leukocyte count by microscopy (number/high power field) [HPF] NRG Bacteria detection in urine sediment by light microsco py TRACE NRG Squamous epithelial cells detection in u rine sediment by light microscopy 2-5 NRG Crystals detection in urine sediment by light microsco py PRESENT NRG Casts detection in urine sediment by light microscopy NONE NRG Mucus detection in urine sediment by light microscopy NEGATIVE NRG Complete urinalysis with reflex to culture NO NRG Amorphous sediment detection in urine sediment by ligh t microscopy MOD JOSH URATES NRG Capillary blood glucose measurement by g lucometer (mass/volume) - 12/27/19 06:30 Capillary blood glucose measurement by glucometer (mas s/volume) > mg/dL 70-110 Arterial blood gas measurement - 0 07:00 Blood pCO2 22 mm[Hg] 35-45 Blood pO2 95 mm[Hg] 79-93 Arterial blood bicarbonate measurement (moles/volume) 7 mmol/L 23-27 Arterial blood base excess by calculation -19.9 mm ol/L -2.5-2.5 Arterial blood oxygen saturation measurement 97 % 94-100 * Inhaled oxygen flow rate 30% O2 NRG Arterial blood pH measurement with patient temperature correction 7.16 7.37-7.43 Arterial blood carbon dioxide, total measurement (mole s/volume) 8.0 mmol/L 21.0-31.0 Body site L RADIAL NRG Assessment of wrist artery patency prior to arterial p uncture POSITIVE NRG Setting of ventilation mode YES NR G Measurement of body temperature 36.5 NRG Sputum Gram stain - 12/27/19 07:06 Sputum Gram stain Mixed Bacterial Michaela NRG Bacterial sputum culture - 12/27/19 07:0 6 FREE TEXT EXTERNAL SUSCEPTIBILITY REPORTED [id number] NRG QUANTITY OF GROWTH . NRG FREE TEXT ENTRY 2 SEE COMMENT NRG Bacterial sputum culture USUAL RESP NRG Complete blood count (CBC) with automate d white blood cell (WBC) differential - 12/27/19 07:25 Blood leukocytes automated count (number/volume) 35.4 10*3/uL 4.3-11.0 Blood erythrocytes automated count (number/volume) 3.03 10*6/uL 4.35-5.85 Venous blood hemoglobin measurement (mass/volume) 9.9 g/dL 11.5-16.0 Blood hematocrit (volume fraction) 29 % 35-52 Automated erythrocyte mean corpuscular volume 96 [ foz_us] 80-99 Automated erythrocyte mean corpuscular h emoglobin (mass per erythrocyte) 33 pg 25-34 Automated erythrocyte mean corpuscular h emoglobin concentration measurement (mass/volume) 34 g/dL 32-36 Automated erythrocyte distribution width ratio 14. 0 % 10.0- 14.5 Automated blood platelet count (count/volume) 262 10*3/uL 130-400 Automated blood platelet mean volume measurement 9.8 [foz_us] 7.4-10.4 Automated blood neutrophils/100 leukocytes 78 % 42-75 Automated blood lymphocytes/100 leukocytes 17 % 12-44 Blood monocytes/100 leukocytes 5 % 0-12 Automated blood eosinophils/100 leukocytes 0 % 0-10 Automated blood basophils/100 leukocytes 0 % 0-10 Blood neutrophils automated count (number/volume) 27.5 10*3 1.8-7.8 Blood lymphocytes automated count (number/volume) 6.2 10*3 1.0-4.0 Blood monocytes automated count (number/volume) 1. 7 10*3 0.0-1.0 Automated eosinophil count 0.1 10*3/uL 0 .0-0.3 Automated blood basophil count (count/volume) 0.0 10*3/uL 0.0-0.1 Blood lactic acid measurement (moles/vol ume) - 12/27/19 07:25 Blood lactic acid measurement (moles/volume) 2.33 mmol/L 0.50-2.00 Comprehensive metabolic panel - 12/27/19 07:25 Serum or plasma sodium measurement (moles/volume) 128 mmol/L 135-145 Serum or plasma potassium measurement (moles/volume) 4.3 mmol/L 3.6-5.0 Serum or plasma chloride measurement (moles/volume) 96 mmol/L 98-107 Serum or plasma urea nitrogen measurement (mass/volume ) 56 mg/dL 7-18 Serum or plasma urea nitrogen/creatinine mass ratio 22 NRG Serum or plasma creatinine measurement w ith calculation of estimated glomerular filtration rate 19 NRG Serum or plasma calcium measurement (mass/volume) 7.9 mg/dL 8.5-10.1 Serum or plasma total bilirubin measurement (mass/volu me) 0.2 mg/dL 0.1-1.0 Serum or plasma alkaline phosphatase cody surement (enzymatic activity/volume) 95 U/L 40-136 Serum or plasma aspartate aminotransfera se measurement (enzymatic activity/volume) 23 U/L 5-34 Serum or plasma alanine aminotransferase measurement (enzymatic activity/volume) 31 U/L 0-55 Serum or plasma protein measurement (mass/volume) 4.9 g/dL 6.4-8.2 Serum or plasma albumin measurement (mass/volume) 2.1 g/dL 3.2-4.5 CALCIUM CORRECTED 9.4 mg/dL 8.5-10.1 Capillary blood glucose measurement by g lucometer (mass/volume) - 12/27/19 09:59 Capillary blood glucose measurement by glucometer (mas s/volume) 569 mg/dL 70-110 Serum or plasma phosphate measurement (m ass/volume) - 12/27/19 11:03 Serum or plasma phosphate measurement (mass/volume) 4.3 mg/dL 2.3-4.7 Magnesium - 12/27/19 11:03 Magnesium 2.0 mg/dL 1.6-2.4 Comprehensive metabolic panel - 12/27/19 11:03 Serum or plasma sodium measurement (moles/volume) 132 mmol/L 135-145 Serum or plasma potassium measurement (moles/volume) 4.3 mmol/L 3.6-5.0 Serum or plasma chloride measurement (moles/volume) 98 mmol/L 98-107 Carbon dioxide 15 mmol/L 21-32 Serum or plasma anion gap determination (moles/volume) 19 mmol/L 5-14 Serum or plasma urea nitrogen measurement (mass/volume ) 54 mg/dL 7-18 Serum or plasma creatinine measurement (mass/volume) 2.54 mg/dL 0.60-1.30 Serum or plasma urea nitrogen/creatinine mass ratio 21 NRG Serum or plasma creatinine measurement w ith calculation of estimated glomerular filtration rate 20 NRG Serum or plasma glucose measurement (mass/volume) 524 mg/dL 70-105 Serum or plasma calcium measurement (mass/volume) 7.5 mg/dL 8.5-10.1 Serum or plasma total bilirubin measurement (mass/volu me) 0.2 mg/dL 0.1-1.0 Serum or plasma alkaline phosphatase cody surement (enzymatic activity/volume) 89 U/L 40-136 Serum or plasma aspartate aminotransfera se measurement (enzymatic activity/volume) 25 U/L 5-34 Serum or plasma alanine aminotransferase measurement (enzymatic activity/volume) 29 U/L 0-55 Serum or plasma protein measurement (mass/volume) 4.7 g/dL 6.4-8.2 Serum or plasma albumin measurement (mass/volume) 2.0 g/dL 3.2-4.5 CALCIUM CORRECTED 9.1 mg/dL 8.5-10.1 Serum or plasma lactate measurement (mol es/volume) - 12/27/19 11:03 Serum or plasma lactate measurement (moles/volume) 1.78 mmol/L 0.50-2.00 Arterial blood gas measurement - 0 11:14 Blood pCO2 30 mm[Hg] 35-45 Blood pO2 79 mm[Hg] 79-93 Arterial blood bicarbonate measurement (moles/volume) 17 mmol/L 23-27 Arterial blood base excess by calculation -7.2 mmo l/L -2.5-2.5 Arterial blood oxygen saturation measurement 95 % 94-100 * Inhaled oxygen flow rate 21% NRG Arterial blood pH measurement with patient temperature correction 7.38 7.37-7.43 Arterial blood carbon dioxide, total measurement (mole s/volume) 17.8 mmol/L 21.0-31.0 Body site LR NRG Assessment of wrist artery patency prior to arterial p uncture YES-POS NRG Setting of ventilation mode YES NR G Measurement of body temperature 37.3 NRG Capillary blood glucose measurement by g lucometer (mass/volume) - 12/27/19 11:36 Capillary blood glucose measurement by glucometer (mas s/volume) 452 mg/dL 70-110 Capillary blood glucose measurement by g lucometer (mass/volume) - 12/27/19 12:33 Capillary blood glucose measurement by glucometer (mas s/volume) 464 mg/dL 70-110 Comprehensive metabolic panel - 12/27/19 13:30 Serum or plasma sodium measurement (moles/volume) 133 mmol/L 135-145 Serum or plasma potassium measurement (moles/volume) 4.8 mmol/L 3.6-5.0 Serum or plasma chloride measurement (moles/volume) 101 mmol/L 98-107 Carbon dioxide 17 mmol/L 21-32 Serum or plasma anion gap determination (moles/volume) 15 mmol/L 5-14 Serum or plasma urea nitrogen measurement (mass/volume ) 54 mg/dL 7-18 Serum or plasma creatinine measurement (mass/volume) 2.57 mg/dL 0.60-1.30 Serum or plasma urea nitrogen/creatinine mass ratio 21 NRG Serum or plasma creatinine measurement w ith calculation of estimated glomerular filtration rate 19 NRG Serum or plasma glucose measurement (mass/volume) 421 mg/dL 70-105 Serum or plasma calcium measurement (mass/volume) 7.6 mg/dL 8.5-10.1 Serum or plasma total bilirubin measurement (mass/volu me) 0.3 mg/dL 0.1-1.0 Serum or plasma alkaline phosphatase cody surement (enzymatic activity/volume) 86 U/L 40-136 Serum or plasma aspartate aminotransfera se measurement (enzymatic activity/volume) 26 U/L 5-34 Serum or plasma alanine aminotransferase measurement (enzymatic activity/volume) 28 U/L 0-55 Serum or plasma protein measurement (mass/volume) 4.6 g/dL 6.4-8.2 Serum or plasma albumin measurement (mass/volume) 2.0 g/dL 3.2-4.5 CALCIUM CORRECTED 9.2 mg/dL 8.5-10.1 Serum or plasma phosphate measurement (m ass/volume) - 12/27/19 13:30 Serum or plasma phosphate measurement (mass/volume) 4.0 mg/dL 2.3-4.7 Magnesium - 12/27/19 13:30 Magnesium 1.9 mg/dL 1.6-2.4 Whole blood hemoglobin and hematocrit pa bean - 12/27/19 13:30 Venous blood hemoglobin measurement (mass/volume) 9.6 g/dL 11.5-16.0 Blood hematocrit (volume fraction) 28 % 35-52 Capillary blood glucose measurement by g lucometer (mass/volume) - 12/27/19 13:34 Capillary blood glucose measurement by glucometer (mas s/volume) 383 mg/dL 70-110 Capillary blood glucose measurement by g lucometer (mass/volume) - 12/27/19 14:30 Capillary blood glucose measurement by glucometer (mas s/volume) 388 mg/dL 70-110 Capillary blood glucose measurement by g lucometer (mass/volume) - 12/27/19 15:23 Capillary blood glucose measurement by glucometer (mas s/volume) 382 mg/dL 70-110 Comprehensive metabolic panel - 12/27/19 16:20 Serum or plasma sodium measurement (moles/volume) 134 mmol/L 135-145 Serum or plasma potassium measurement (moles/volume) 4.4 mmol/L 3.6-5.0 Serum or plasma chloride measurement (moles/volume) 103 mmol/L 98-107 Carbon dioxide 17 mmol/L 21-32 Serum or plasma anion gap determination (moles/volume) 14 mmol/L 5-14 Serum or plasma urea nitrogen measurement (mass/volume ) 54 mg/dL 7-18 Serum or plasma creatinine measurement (mass/volume) 2.60 mg/dL 0.60-1.30 Serum or plasma urea nitrogen/creatinine mass ratio 21 NRG Serum or plasma creatinine measurement w ith calculation of estimated glomerular filtration rate 19 NRG Serum or plasma glucose measurement (mass/volume) 415 mg/dL 70-105 Serum or plasma calcium measurement (mass/volume) 7.5 mg/dL 8.5-10.1 Serum or plasma total bilirubin measurement (mass/volu me) 0.3 mg/dL 0.1-1.0 Serum or plasma alkaline phosphatase cody surement (enzymatic activity/volume) 83 U/L 40-136 Serum or plasma aspartate aminotransfera se measurement (enzymatic activity/volume) 28 U/L 5-34 Serum or plasma alanine aminotransferase measurement (enzymatic activity/volume) 29 U/L 0-55 Serum or plasma protein measurement (mass/volume) 4.4 g/dL 6.4-8.2 Serum or plasma albumin measurement (mass/volume) 1.9 g/dL 3.2-4.5 CALCIUM CORRECTED 9.2 mg/dL 8.5-10.1 Serum or plasma phosphate measurement (m ass/volume) - 12/27/19 16:20 Serum or plasma phosphate measurement (mass/volume) 3.4 mg/dL 2.3-4.7 Magnesium - 12/27/19 16:20 Magnesium 1.7 mg/dL 1.6-2.4 Capillary blood glucose measurement by g lucometer (mass/volume) - 12/27/19 16:22 Capillary blood glucose measurement by glucometer (mas s/volume) 425 mg/dL 70-110 Capillary blood glucose measurement by g lucometer (mass/volume) - 12/27/19 17:37 Capillary blood glucose measurement by glucometer (mas s/volume) 349 mg/dL 70-110 Capillary blood glucose measurement by g lucometer (mass/volume) - 12/27/19 18:53 Capillary blood glucose measurement by glucometer (mas s/volume) 310 mg/dL 70-110 Capillary blood glucose measurement by g lucometer (mass/volume) - 12/27/19 19:32 Capillary blood glucose measurement by glucometer (mas s/volume) 222 mg/dL 70-110 Capillary blood glucose measurement by g lucometer (mass/volume) - 12/27/19 20:00 Capillary blood glucose measurement by glucometer (mas s/volume) 249 mg/dL 70-110 Capillary blood glucose measurement by g lucometer (mass/volume) - 12/27/19 21:11 Capillary blood glucose measurement by glucometer (mas s/volume) 250 mg/dL 70-110 Comprehensive metabolic panel - 12/27/19 21:45 Serum or plasma sodium measurement (moles/volume) 134 mmol/L 135-145 Serum or plasma potassium measurement (moles/volume) 4.4 mmol/L 3.6-5.0 Serum or plasma chloride measurement (moles/volume) 105 mmol/L 98-107 Carbon dioxide 19 mmol/L 21-32 Serum or plasma anion gap determination (moles/volume) 10 mmol/L 5-14 Serum or plasma urea nitrogen measurement (mass/volume ) 52 mg/dL 7-18 Serum or plasma creatinine measurement (mass/volume) 2.53 mg/dL 0.60-1.30 Serum or plasma urea nitrogen/creatinine mass ratio 21 NRG Serum or plasma creatinine measurement w ith calculation of estimated glomerular filtration rate 20 NRG Serum or plasma glucose measurement (mass/volume) 240 mg/dL 70-105 Serum or plasma calcium measurement (mass/volume) 7.6 mg/dL 8.5-10.1 Serum or plasma total bilirubin measurement (mass/volu me) 0.2 mg/dL 0.1-1.0 Serum or plasma alkaline phosphatase cody surement (enzymatic activity/volume) 86 U/L 40-136 Serum or plasma aspartate aminotransfera se measurement (enzymatic activity/volume) 32 U/L 5-34 Serum or plasma alanine aminotransferase measurement (enzymatic activity/volume) 30 U/L 0-55 Serum or plasma protein measurement (mass/volume) 4.7 g/dL 6.4-8.2 Serum or plasma albumin measurement (mass/volume) 2.0 g/dL 3.2-4.5 CALCIUM CORRECTED 9.2 mg/dL 8.5-10.1 Serum or plasma phosphate measurement (m ass/volume) - 12/27/19 21:45 Serum or plasma phosphate measurement (mass/volume) 2.8 mg/dL 2.3-4.7 Magnesium - 12/27/19 21:45 Magnesium 1.8 mg/dL 1.6-2.4 Capillary blood glucose measurement by g lucometer (mass/volume) - 12/27/19 22:09 Capillary blood glucose measurement by glucometer (mas s/volume) 223 mg/dL 70-110 Capillary blood glucose measurement by g lucometer (mass/volume) - 12/28/19 00:16 Capillary blood glucose measurement by glucometer (mas s/volume) 185 mg/dL 70-110 Arterial blood gas measurement - 0 03:00 Blood pCO2 34 mm[Hg] 35-45 Blood pO2 87 mm[Hg] 79-93 Arterial blood bicarbonate measurement (moles/volume) 21 mmol/L 23-27 Arterial blood base excess by calculation -3.0 mmo l/L -2.5-2.5 Arterial blood oxygen saturation measurement 96 % 94-100 * Inhaled oxygen flow rate 21% NRG Arterial blood pH measurement with patient temperature correction 7.40 7.37-7.43 Arterial blood carbon dioxide, total measurement (mole s/volume) 22.0 mmol/L 21.0-31.0 Body site LEFT ART LINE NRG Assessment of wrist artery patency prior to arterial p uncture ART LINE NRG Setting of ventilation mode NO NR G Measurement of body temperature 36.9 NRG Complete blood count (CBC) with automate d white blood cell (WBC) differential - 12/28/19 03:00 Blood leukocytes automated count (number/volume) 13.3 10*3/uL 4.3-11.0 Blood erythrocytes automated count (number/volume) 3.25 10*6/uL 4.35-5.85 Venous blood hemoglobin measurement (mass/volume) 10.4 g/dL 11.5-16.0 Blood hematocrit (volume fraction) 30 % 35-52 Automated erythrocyte mean corpuscular volume 91 [ foz_us] 80-99 Automated erythrocyte mean corpuscular h emoglobin (mass per erythrocyte) 32 pg 25-34 Automated erythrocyte mean corpuscular h emoglobin concentration measurement (mass/volume) 35 g/dL 32-36 Automated erythrocyte distribution width ratio 14. 4 % 10.0- 14.5 Automated blood platelet count (count/volume) 216 10*3/uL 130-400 Automated blood platelet mean volume measurement 9.6 [foz_us] 7.4-10.4 Automated blood neutrophils/100 leukocytes 76 % 42-75 Automated blood lymphocytes/100 leukocytes 19 % 12-44 Blood monocytes/100 leukocytes 5 % 0-12 Automated blood eosinophils/100 leukocytes 0 % 0-10 Automated blood basophils/100 leukocytes 0 % 0-10 Blood neutrophils automated count (number/volume) 10.1 10*3 1.8-7.8 Blood lymphocytes automated count (number/volume) 2.5 10*3 1.0-4.0 Blood monocytes automated count (number/volume) 0. 7 10*3 0.0-1.0 Automated eosinophil count 0.1 10*3/uL 0 .0-0.3 Automated blood basophil count (count/volume) 0.0 10*3/uL 0.0-0.1 Comprehensive metabolic panel - 12/28/19 03:00 Serum or plasma sodium measurement (moles/volume) 134 mmol/L 135-145 Serum or plasma potassium measurement (moles/volume) 4.4 mmol/L 3.6-5.0 Serum or plasma chloride measurement (moles/volume) 106 mmol/L 98-107 Carbon dioxide 18 mmol/L 21-32 Serum or plasma anion gap determination (moles/volume) 10 mmol/L 5-14 Serum or plasma urea nitrogen measurement (mass/volume ) 49 mg/dL 7-18 Serum or plasma creatinine measurement (mass/volume) 2.40 mg/dL 0.60-1.30 Serum or plasma urea nitrogen/creatinine mass ratio 20 NRG Serum or plasma creatinine measurement w ith calculation of estimated glomerular filtration rate 21 NRG Serum or plasma glucose measurement (mass/volume) 179 mg/dL 70-105 Serum or plasma calcium measurement (mass/volume) 7.6 mg/dL 8.5-10.1 Serum or plasma total bilirubin measurement (mass/volu me) 0.2 mg/dL 0.1-1.0 Serum or plasma alkaline phosphatase cody surement (enzymatic activity/volume) 79 U/L 40-136 Serum or plasma aspartate aminotransfera se measurement (enzymatic activity/volume) 33 U/L 5-34 Serum or plasma alanine aminotransferase measurement (enzymatic activity/volume) 29 U/L 0-55 Serum or plasma protein measurement (mass/volume) 4.9 g/dL 6.4-8.2 Serum or plasma albumin measurement (mass/volume) 2.1 g/dL 3.2-4.5 CALCIUM CORRECTED 9.1 mg/dL 8.5-10.1 Serum or plasma phosphate measurement (m ass/volume) - 12/28/19 03:00 Serum or plasma phosphate measurement (mass/volume) 2.7 mg/dL 2.3-4.7 Magnesium - 12/28/19 03:00 Magnesium 1.8 mg/dL 1.6-2.4 Beta-hydroxybutyric acid measurement - 0 12/28/19 03:00 Beta-hydroxybutyric acid measurement 2.10 mmol/L 0.00-0.27 Complete urinalysis with reflex to cultu re - 12/28/19 06:30 Urine color determination YELLOW NRG Urine clarity determination CLEAR NR G Urine pH measurement by test strip 6.0 5-9 Specific gravity of urine by test strip 1.025 1.016-1.022 Urine protein assay by test strip, semi-quantitative 3+ NEGATIVE Urine glucose detection by automated test strip NE GATIVE NEGATIVE Erythrocytes detection in urine sediment by light micr oscopy 1+ NEGATIVE Urine ketones detection by automated test strip 1+ NEGATIVE Urine nitrite detection by test strip NEGATIVE NEGATIVE Urine total bilirubin detection by test strip 1+ NEGATIVE Urine urobilinogen measurement by automated test strip (mass/volume) 0.2 mg/dL < = 1.0 Urine leukocyte esterase detection by dipstick NEG ATIVE NEGATIVE Automated urine sediment erythrocyte cou nt by microscopy (number/high power field) NONE NRG Automated urine sediment leukocyte count by microscopy (number/high power field) [HPF] NRG Bacteria detection in urine sediment by light microsco py TRACE NRG Squamous epithelial cells detection in u rine sediment by light microscopy 5-10 NRG Crystals detection in urine sediment by light microsco py PRESENT NRG Casts detection in urine sediment by light microscopy NONE NRG Mucus detection in urine sediment by light microscopy SMALL NRG Complete urinalysis with reflex to culture NO NRG Amorphous sediment detection in urine sediment by ligh t microscopy FEW JOSH URATES NRG Capillary blood glucose measurement by g lucometer (mass/volume) - 12/28/19 08:26 Capillary blood glucose measurement by glucometer (mas s/volume) 324 mg/dL 70-110 Capillary blood glucose measurement by g lucometer (mass/volume) - 12/28/19 11:35 Capillary blood glucose measurement by glucometer (mas s/volume) 296 mg/dL 70-110 Comprehensive metabolic panel - 12/28/19 13:17 Serum or plasma sodium measurement (moles/volume) 135 mmol/L 135-145 Serum or plasma potassium measurement (moles/volume) 3.5 mmol/L 3.6-5.0 Serum or plasma chloride measurement (moles/volume) 108 mmol/L 98-107 Carbon dioxide 19 mmol/L 21-32 Serum or plasma anion gap determination (moles/volume) 8 mmol/L 5-14 Serum or plasma urea nitrogen measurement (mass/volume ) 40 mg/dL 7-18 Serum or plasma creatinine measurement (mass/volume) 2.16 mg/dL 0.60-1.30 Serum or plasma urea nitrogen/creatinine mass ratio 19 NRG Serum or plasma creatinine measurement w ith calculation of estimated glomerular filtration rate 24 NRG Serum or plasma glucose measurement (mass/volume) 290 mg/dL 70-105 Serum or plasma calcium measurement (mass/volume) 7.4 mg/dL 8.5-10.1 Serum or plasma total bilirubin measurement (mass/volu me) 0.3 mg/dL 0.1-1.0 Serum or plasma alkaline phosphatase cody surement (enzymatic activity/volume) 68 U/L 40-136 Serum or plasma aspartate aminotransfera se measurement (enzymatic activity/volume) 35 U/L 5-34 Serum or plasma alanine aminotransferase measurement (enzymatic activity/volume) 29 U/L 0-55 Serum or plasma protein measurement (mass/volume) 4.5 g/dL 6.4-8.2 Serum or plasma albumin measurement (mass/volume) 1.9 g/dL 3.2-4.5 CALCIUM CORRECTED 9.1 mg/dL 8.5-10.1 Serum or plasma phosphate measurement (m ass/volume) - 12/28/19 13:17 Serum or plasma phosphate measurement (mass/volume) 2.0 mg/dL 2.3-4.7 Magnesium - 12/28/19 13:17 Magnesium 1.6 mg/dL 1.6-2.4 Capillary blood glucose measurement by g lucometer (mass/volume) - 12/28/19 16:00 Capillary blood glucose measurement by glucometer (mas s/volume) 194 mg/dL 70-110 Capillary blood glucose measurement by g lucometer (mass/volume) - 12/28/19 19:40 Capillary blood glucose measurement by glucometer (mas s/volume) 196 mg/dL 70-110 Capillary blood glucose measurement by g lucometer (mass/volume) - 12/28/19 23:09 Capillary blood glucose measurement by glucometer (mas s/volume) 76 mg/dL 70-110 Complete blood count (CBC) with automate d white blood cell (WBC) differential - 12/29/19 02:21 Blood leukocytes automated count (number/volume) 11.5 10*3/uL 4.3-11.0 Blood erythrocytes automated count (number/volume) 2.95 10*6/uL 4.35-5.85 Venous blood hemoglobin measurement (mass/volume) 9.4 g/dL 11.5-16.0 Blood hematocrit (volume fraction) 28 % 35-52 Automated erythrocyte mean corpuscular volume 94 [ foz_us] 80-99 Automated erythrocyte mean corpuscular h emoglobin (mass per erythrocyte) 32 pg 25-34 Automated erythrocyte mean corpuscular h emoglobin concentration measurement (mass/volume) 34 g/dL 32-36 Automated erythrocyte distribution width ratio 15. 1 % 10.0- 14.5 Automated blood platelet count (count/volume) 155 10*3/uL 130-400 Automated blood platelet mean volume measurement 8.9 [foz_us] 7.4-10.4 Automated blood neutrophils/100 leukocytes 79 % 42-75 Automated blood lymphocytes/100 leukocytes 15 % 12-44 Blood monocytes/100 leukocytes 5 % 0-12 Automated blood eosinophils/100 leukocytes 0 % 0-10 Automated blood basophils/100 leukocytes 0 % 0-10 Blood neutrophils automated count (number/volume) 9.1 10*3 1.8-7.8 Blood lymphocytes automated count (number/volume) 1.7 10*3 1.0-4.0 Blood monocytes automated count (number/volume) 0. 6 10*3 0.0-1.0 Automated eosinophil count 0.1 10*3/uL 0 .0-0.3 Automated blood basophil count (count/volume) 0.0 10*3/uL 0.0-0.1 Whole blood basic metabolic panel - 12/18 01/06 02:21 Serum or plasma sodium measurement (moles/volume) 142 mmol/L 135-145 Serum or plasma potassium measurement (moles/volume) 2.8 mmol/L 3.6-5.0 Serum or plasma chloride measurement (moles/volume) 112 mmol/L 98-107 Carbon dioxide 22 mmol/L 21-32 Serum or plasma anion gap determination (moles/volume) 8 mmol/L 5-14 Serum or plasma urea nitrogen measurement (mass/volume ) 27 mg/dL 7-18 Serum or plasma creatinine measurement (mass/volume) 1.59 mg/dL 0.60-1.30 Serum or plasma urea nitrogen/creatinine mass ratio 17 NRG Serum or plasma creatinine measurement w ith calculation of estimated glomerular filtration rate 34 NRG Serum or plasma glucose measurement (mass/volume) 32 mg/dL 70-105 Serum or plasma calcium measurement (mass/volume) 7.7 mg/dL 8.5-10.1 Serum or plasma phosphate measurement (m ass/volume) - 12/29/19 02:21 Serum or plasma phosphate measurement (mass/volume) 1.8 mg/dL 2.3-4.7 Magnesium - 12/29/19 02:21 Magnesium 1.9 mg/dL 1.6-2.4 Capillary blood glucose measurement by g lucometer (mass/volume) - 12/29/19 02:55 Capillary blood glucose measurement by glucometer (mas s/volume) 31 mg/dL 70-110 Capillary blood glucose measurement by g lucometer (mass/volume) - 12/29/19 03:12 Capillary blood glucose measurement by glucometer (mas s/volume) 113 mg/dL 70-110 Capillary blood glucose measurement by g lucometer (mass/volume) - 12/29/19 03:59 Capillary blood glucose measurement by glucometer (mas s/volume) 69 mg/dL 70-110 Capillary blood glucose measurement by g lucometer (mass/volume) - 12/29/19 05:35 Capillary blood glucose measurement by glucometer (mas s/volume) 101 mg/dL 70-110 Capillary blood glucose measurement by g lucometer (mass/volume) - 12/29/19 08:38 Capillary blood glucose measurement by glucometer (mas s/volume) 102 mg/dL 70-110 Capillary blood glucose measurement by g lucometer (mass/volume) - 12/29/19 11:36 Capillary blood glucose measurement by glucometer (mas s/volume) 115 mg/dL 70-110 Capillary blood glucose measurement by g lucometer (mass/volume) - 12/29/19 16:07 Capillary blood glucose measurement by glucometer (mas s/volume) 347 mg/dL 70-110 Capillary blood glucose measurement by g lucometer (mass/volume) - 02/12/20 20:06 Capillary blood glucose measurement by glucometer (mas s/volume) 343 mg/dL 70-110 Capillary blood glucose measurement by g lucometer (mass/volume) - 12/30/19 05:32 Capillary blood glucose measurement by glucometer (mas s/volume) 53 mg/dL 70-110 Complete blood count (CBC) with automate d white blood cell (WBC) differential - 12/30/19 05:48 Blood leukocytes automated count (number/volume) 12.7 10*3/uL 4.3-11.0 Blood erythrocytes automated count (number/volume) 3.39 10*6/uL 4.35-5.85 Venous blood hemoglobin measurement (mass/volume) 10.8 g/dL 11.5-16.0 Blood hematocrit (volume fraction) 33 % 35-52 Automated erythrocyte mean corpuscular volume 96 [ foz_us] 80-99 Automated erythrocyte mean corpuscular h emoglobin (mass per erythrocyte) 32 pg 25-34 Automated erythrocyte mean corpuscular h emoglobin concentration measurement (mass/volume) 33 g/dL 32-36 Automated erythrocyte distribution width ratio 14. 8 % 10.0- 14.5 Automated blood platelet count (count/volume) 164 10*3/uL 130-400 Automated blood platelet mean volume measurement 9.9 [foz_us] 7.4-10.4 Automated blood neutrophils/100 leukocytes 76 % 42-75 Automated blood lymphocytes/100 leukocytes 19 % 12-44 Blood monocytes/100 leukocytes 4 % 0-12 Automated blood eosinophils/100 leukocytes 1 % 0-10 Automated blood basophils/100 leukocytes 0 % 0-10 Blood neutrophils automated count (number/volume) 9.6 10*3 1.8-7.8 Blood lymphocytes automated count (number/volume) 2.4 10*3 1.0-4.0 Blood monocytes automated count (number/volume) 0. 5 10*3 0.0-1.0 Automated eosinophil count 0.2 10*3/uL 0 .0-0.3 Automated blood basophil count (count/volume) 0.0 10*3/uL 0.0-0.1 Whole blood basic metabolic panel - 12/18 02/03 05:48 Serum or plasma sodium measurement (moles/volume) 138 mmol/L 135-145 Serum or plasma potassium measurement (moles/volume) 3.4 mmol/L 3.6-5.0 Serum or plasma chloride measurement (moles/volume) 104 mmol/L 98-107 Carbon dioxide 24 mmol/L 21-32 Serum or plasma anion gap determination (moles/volume) 10 mmol/L 5-14 Serum or plasma urea nitrogen measurement (mass/volume ) 20 mg/dL 7-18 Serum or plasma creatinine measurement (mass/volume) 1.28 mg/dL 0.60-1.30 Serum or plasma urea nitrogen/creatinine mass ratio 16 NRG Serum or plasma creatinine measurement w ith calculation of estimated glomerular filtration rate 43 NRG Serum or plasma glucose measurement (mass/volume) 54 mg/dL 70-105 Serum or plasma calcium measurement (mass/volume) 8.0 mg/dL 8.5-10.1 Serum or plasma phosphate measurement (m ass/volume) - 12/30/19 05:48 Serum or plasma phosphate measurement (mass/volume) 2.1 mg/dL 2.3-4.7 Magnesium - 12/30/19 05:48 Magnesium 1.5 mg/dL 1.6-2.4 Capillary blood glucose measurement by g lucometer (mass/volume) - 12/30/19 06:43 Capillary blood glucose measurement by glucometer (mas s/volume) 119 mg/dL 70-110 Capillary blood glucose measurement by g lucometer (mass/volume) - 12/30/19 10:47 Capillary blood glucose measurement by glucometer (mas s/volume) 342 mg/dL 70-110 Capillary blood glucose measurement by g lucometer (mass/volume) - 12/30/19 16:19 Capillary blood glucose measurement by glucometer (mas s/volume) 389 mg/dL 70-110 Capillary blood glucose measurement by g lucometer (mass/volume) - 12/30/19 20:36 Capillary blood glucose measurement by glucometer (mas s/volume) 377 mg/dL 70-110 Capillary blood glucose measurement by g lucometer (mass/volume) - 12/31/19 06:07 Capillary blood glucose measurement by glucometer (mas s/volume) 289 mg/dL 70-110 Complete blood count (CBC) with automate d white blood cell (WBC) differential - 12/31/19 06:28 Blood leukocytes automated count (number/volume) 10.2 10*3/uL 4.3-11.0 Blood erythrocytes automated count (number/volume) 3.13 10*6/uL 4.35-5.85 Venous blood hemoglobin measurement (mass/volume) 10.0 g/dL 11.5-16.0 Blood hematocrit (volume fraction) 31 % 35-52 Automated erythrocyte mean corpuscular volume 97 [ foz_us] 80-99 Automated erythrocyte mean corpuscular h emoglobin (mass per erythrocyte) 32 pg 25-34 Automated erythrocyte mean corpuscular h emoglobin concentration measurement (mass/volume) 33 g/dL 32-36 Automated erythrocyte distribution width ratio 14. 4 % 10.0- 14.5 Automated blood platelet count (count/volume) 159 10*3/uL 130-400 Automated blood platelet mean volume measurement 10.0 [foz_us] 7.4-10.4 Automated blood neutrophils/100 leukocytes 70 % 42-75 Automated blood lymphocytes/100 leukocytes 24 % 12-44 Blood monocytes/100 leukocytes 4 % 0-12 Automated blood eosinophils/100 leukocytes 3 % 0-10 Automated blood basophils/100 leukocytes 0 % 0-10 Blood neutrophils automated count (number/volume) 7.1 10*3 1.8-7.8 Blood lymphocytes automated count (number/volume) 2.4 10*3 1.0-4.0 Blood monocytes automated count (number/volume) 0. 4 10*3 0.0-1.0 Automated eosinophil count 0.3 10*3/uL 0 .0-0.3 Automated blood basophil count (count/volume) 0.0 10*3/uL 0.0-0.1 Whole blood basic metabolic panel - 12/18 03/06 06:28 Serum or plasma sodium measurement (moles/volume) 136 mmol/L 135-145 Serum or plasma potassium measurement (moles/volume) 4.0 mmol/L 3.6-5.0 Serum or plasma chloride measurement (moles/volume) 105 mmol/L 98-107 Carbon dioxide 24 mmol/L 21-32 Serum or plasma anion gap determination (moles/volume) 7 mmol/L 5-14 Serum or plasma urea nitrogen measurement (mass/volume ) 16 mg/dL 7-18 Serum or plasma creatinine measurement (mass/volume) 1.27 mg/dL 0.60-1.30 Serum or plasma urea nitrogen/creatinine mass ratio 13 NRG Serum or plasma creatinine measurement w ith calculation of estimated glomerular filtration rate 44 NRG Serum or plasma glucose measurement (mass/volume) 311 mg/dL 70-105 Serum or plasma calcium measurement (mass/volume) 7.7 mg/dL 8.5-10.1 Serum or plasma phosphate measurement (m ass/volume) - 12/31/19 06:28 Serum or plasma phosphate measurement (mass/volume) 1.9 mg/dL 2.3-4.7 Magnesium - 12/31/19 06:28 Magnesium 1.5 mg/dL 1.6-2.4 Capillary blood glucose measurement by g lucometer (mass/volume) - 12/31/19 11:16 Capillary blood glucose measurement by glucometer (mas s/volume) 363 mg/dL 70-110 Capillary blood glucose measurement by g lucometer (mass/volume) - 12/31/19 15:39 Capillary blood glucose measurement by glucometer (mas s/volume) 380 mg/dL 70-110 Capillary blood glucose measurement by g lucometer (mass/volume) - 12/31/19 20:29 Capillary blood glucose measurement by glucometer (mas s/volume) 480 mg/dL 70-110 Capillary blood glucose measurement by g lucometer (mass/volume) - 01/01/20 03:44 Capillary blood glucose measurement by glucometer (mas s/volume) 302 mg/dL 70-110 Whole blood basic metabolic panel - 12/18 04/05 05:16 Serum or plasma sodium measurement (moles/volume) 137 mmol/L 135-145 Serum or plasma potassium measurement (moles/volume) 3.8 mmol/L 3.6-5.0 Serum or plasma chloride measurement (moles/volume) 107 mmol/L 98-107 Carbon dioxide 21 mmol/L 21-32 Serum or plasma anion gap determination (moles/volume) 9 mmol/L 5-14 Serum or plasma urea nitrogen measurement (mass/volume ) 20 mg/dL 7-18 Serum or plasma creatinine measurement (mass/volume) 1.22 mg/dL 0.60-1.30 Serum or plasma urea nitrogen/creatinine mass ratio 16 NRG Serum or plasma creatinine measurement w ith calculation of estimated glomerular filtration rate 46 NRG Serum or plasma glucose measurement (mass/volume) 236 mg/dL 70-105 Serum or plasma calcium measurement (mass/volume) 7.8 mg/dL 8.5-10.1 Serum or plasma phosphate measurement (m ass/volume) - 01/01/20 05:16 Serum or plasma phosphate measurement (mass/volume) 2.2 mg/dL 2.3-4.7 Magnesium - 01/01/20 05:16 Magnesium 1.7 mg/dL 1.6-2.4 Complete blood count (CBC) with automate d white blood cell (WBC) differential - 01/01/20 05:18 Blood leukocytes automated count (number/volume) 8.8 10*3/uL 4.3-11.0 Blood erythrocytes automated count (number/volume) 2.99 10*6/uL 4.35-5.85 Venous blood hemoglobin measurement (mass/volume) 9.5 g/dL 11.5-16.0 Blood hematocrit (volume fraction) 29 % 35-52 Automated erythrocyte mean corpuscular volume 98 [ foz_us] 80-99 Automated erythrocyte mean corpuscular h emoglobin (mass per erythrocyte) 32 pg 25-34 Automated erythrocyte mean corpuscular h emoglobin concentration measurement (mass/volume) 32 g/dL 32-36 Automated erythrocyte distribution width ratio 14. 0 % 10.0- 14.5 Automated blood platelet count (count/volume) 220 10*3/uL 130-400 Automated blood platelet mean volume measurement 10.2 [foz_us] 7.4-10.4 Automated blood neutrophils/100 leukocytes 58 % 42-75 Automated blood lymphocytes/100 leukocytes 33 % 12-44 Blood monocytes/100 leukocytes 7 % 0-12 Automated blood eosinophils/100 leukocytes 3 % 0-10 Automated blood basophils/100 leukocytes 0 % 0-10 Blood neutrophils automated count (number/volume) 5.1 10*3 1.8-7.8 Blood lymphocytes automated count (number/volume) 2.9 10*3 1.0-4.0 Blood monocytes automated count (number/volume) 0. 6 10*3 0.0-1.0 Automated eosinophil count 0.2 10*3/uL 0 .0-0.3 Automated blood basophil count (count/volume) 0.0 10*3/uL 0.0-0.1 Capillary blood glucose measurement by g lucometer (mass/volume) - 01/01/20 05:31 Capillary blood glucose measurement by glucometer (mas s/volume) 208 mg/dL 70-110 Capillary blood glucose measurement by g lucometer (mass/volume) - 01/01/20 10:57 Capillary blood glucose measurement by glucometer (mas s/volume) 297 mg/dL 70-110 Capillary blood glucose measurement by g lucometer (mass/volume) - 05/03/20 18:02 Capillary blood glucose measurement by glucometer (mas s/volume) > mg/dL 70-110 Comprehensive metabolic panel - 05/03/20 18:15 Serum or plasma sodium measurement (moles/volume) 116 mmol/L 135-145 Serum or plasma potassium measurement (moles/volume) 6.6 mmol/L 3.6-5.0 Serum or plasma chloride measurement (moles/volume) 79 mmol/L 98-107 Carbon dioxide 8 mmol/L 21-32 Serum or plasma anion gap determination (moles/volume) 29 mmol/L 5-14 Serum or plasma urea nitrogen measurement (mass/volume ) 77 mg/dL 7-18 Serum or plasma creatinine measurement (mass/volume) 3.27 mg/dL 0.60-1.30 Serum or plasma urea nitrogen/creatinine mass ratio 24 NRG Serum or plasma creatinine measurement w ith calculation of estimated glomerular filtration rate 15 NRG Serum or plasma glucose measurement (mass/volume) 1322 mg/dL 70-105 Serum or plasma calcium measurement (mass/volume) 9.6 mg/dL 8.5-10.1 Serum or plasma total bilirubin measurement (mass/volu me) 0.5 mg/dL 0.1-1.0 Serum or plasma alkaline phosphatase cody surement (enzymatic activity/volume) 123 U/L 40-136 Serum or plasma aspartate aminotransfera se measurement (enzymatic activity/volume) 22 U/L 5-34 Serum or plasma alanine aminotransferase measurement (enzymatic activity/volume) 31 U/L 0-55 Serum or plasma protein measurement (mass/volume) 8.4 g/dL 6.4-8.2 Serum or plasma albumin measurement (mass/volume) 3.5 g/dL 3.2-4.5 CALCIUM CORRECTED 10.0 mg/dL 8.5-10.1 Lipase - 05/03/20 18:15 Lipase 71 U/L 8-78 Beta-hydroxybutyric acid measurement - 0 05/03/20 18:15 Beta-hydroxybutyric acid measurement 8.53 mmol/L 0.00-0.27 Arterial blood gas measurement - 0 18:22 Blood pCO2 15 mm[Hg] 35-45 Blood pO2 147 mm[Hg] 79-93 Arterial blood bicarbonate measurement (moles/volume) 8 mmol/L 23-27 Arterial blood base excess by calculation -17.2 mm ol/L -2.5-2.5 Arterial blood oxygen saturation measurement 97 % 94-100 * Inhaled oxygen flow rate RA NRG Arterial blood pH measurement with patient temperature correction 7.34 7.37-7.43 Arterial blood carbon dioxide, total measurement (mole s/volume) 8.3 mmol/L 21.0-31.0 Body site R RAD NRG Assessment of wrist artery patency prior to arterial p uncture YES-POS NRG Setting of ventilation mode NO NR G Measurement of body temperature 37.6 NRG Complete blood count (CBC) with automate d white blood cell (WBC) differential - 05/03/20 18:34 Blood leukocytes automated count (number/volume) 11.3 10*3/uL 4.3-11.0 Blood erythrocytes automated count (number/volume) 3.80 10*6/uL 4.35-5.85 Venous blood hemoglobin measurement (mass/volume) 11.8 g/dL 11.5-16.0 Blood hematocrit (volume fraction) 38 % 35-52 Automated erythrocyte mean corpuscular volume 99 [ foz_us] 80-99 Automated erythrocyte mean corpuscular h emoglobin (mass per erythrocyte) 31 pg 25-34 Automated erythrocyte mean corpuscular h emoglobin concentration measurement (mass/volume) 31 g/dL 32-36 Automated erythrocyte distribution width ratio 13. 5 % 10.0- 14.5 Automated blood platelet count (count/volume) 444 10*3/uL 130-400 Automated blood platelet mean volume measurement 10.1 [foz_us] 7.4-10.4 Automated blood neutrophils/100 leukocytes 90 % 42-75 Automated blood lymphocytes/100 leukocytes 10 % 12-44 Blood monocytes/100 leukocytes 0 % 0-12 Automated blood eosinophils/100 leukocytes 0 % 0-10 Automated blood basophils/100 leukocytes 0 % 0-10 Blood neutrophils automated count (number/volume) 10.1 10*3 1.8-7.8 Blood lymphocytes automated count (number/volume) 1.1 10*3 1.0-4.0 Blood monocytes automated count (number/volume) 0. 1 10*3 0.0-1.0 Automated eosinophil count 0.0 10*3/uL 0 .0-0.3 Automated blood basophil count (count/volume) 0.0 10*3/uL 0.0-0.1 Manual absolute plasma cell count - 04/17 06/05 18:34 Blood monocytes/100 leukocytes 1 % NRG Manual blood segmented neutrophils/100 leukocytes 84 % NRG Blood band neutrophils/100 leukocytes 3 % NRG Manual blood lymphocytes/100 leukocytes 12 % NRG Blood erythrocyte morphology finding identification NORMAL NRG Complete urinalysis with reflex to cultu re - 05/03/20 19:49 Urine color determination YELLOW NRG Urine clarity determination CLEAR NR G Urine pH measurement by test strip 6.0 5-9 Specific gravity of urine by test strip 1.020 1.016-1.022 Urine protein assay by test strip, semi-quantitative 3+ NEGATIVE Urine glucose detection by automated test strip 3+ NEGATIVE Erythrocytes detection in urine sediment by light micr oscopy TRACE-I NEGATIVE Urine ketones detection by automated test strip 1+ NEGATIVE Urine nitrite detection by test strip NEGATIVE NEGATIVE Urine total bilirubin detection by test strip NEGA TIVE NEGATIVE Urine urobilinogen measurement by automated test strip (mass/volume) 0.2 mg/dL < = 1.0 Urine leukocyte esterase detection by dipstick NEG ATIVE NEGATIVE Automated urine sediment erythrocyte cou nt by microscopy (number/high power field) NONE NRG Automated urine sediment leukocyte count by microscopy (number/high power field) [HPF] NRG Bacteria detection in urine sediment by light microsco py TRACE NRG Squamous epithelial cells detection in u rine sediment by light microscopy 0-2 NRG Crystals detection in urine sediment by light microsco py NONE NRG Casts detection in urine sediment by light microscopy NONE NRG Mucus detection in urine sediment by light microscopy SMALL NRG Complete urinalysis with reflex to culture NO NRG Urine drug screening test - 05/03/20 19: 49 Urine phencyclidine detection by screening method NEGATIVE NEGATIVE Urine benzodiazepines detection by screening method NEGATIVE NEGATIVE Urine cocaine detection NEGATIVE NEGATI VE Urine amphetamines detection by screening method N EGATIVE NEGATIVE Urine methamphetamine detection by screening method NEGATIVE NEGATIVE Urine cannabinoids detection by screening method P OSITIVE NEGATIVE Urine opiates detection by screening method NEGATI VE NEGATIVE Urine barbiturates detection NEGATIVE N EGATIVE Screening urine tricyclic antidepressants detection NEGATIVE NEGATIVE Urine methadone detection by screening method NEGA TIVE NEGATIVE Urine oxycodone detection NEGATIVE NEGA TIVE Urine propoxyphene detection NEGATIVE N EGATIVE Whole blood basic metabolic panel - 04/17 06/05 21:05 Serum or plasma potassium measurement (moles/volume) 4.4 mmol/L 3.6-5.0 Serum or plasma chloride measurement (moles/volume) 89 mmol/L 98-107 Serum or plasma anion gap determination (moles/volume) 20 mmol/L 5-14 Serum or plasma urea nitrogen measurement (mass/volume ) 75 mg/dL 7-18 Serum or plasma urea nitrogen/creatinine mass ratio 24 NRG Serum or plasma creatinine measurement w ith calculation of estimated glomerular filtration rate 15 NRG Serum or plasma calcium measurement (mass/volume) 8.6 mg/dL 8.5-10.1 Encounters ACCT No. Visit Date/Time Discharge Status Pt. Type Provider Facility Loc./Unit Complaint [id number] 12/27/2019 04:00:00 020 13:15:00 DIS Outpatient DONAVON BLUNT, NOEMÍ Wong [facility] 4TH DKA,METHAMPHETAMINE,RES P FAILURE [id number] 11/19/2019 18:13:00 020 20:32:00 DIS Outpatient LIZET MAS APRN [facility] ER KIDNEY PAIN [id number] 06/27/2019 09:18:00 019 14:35:00 DIS Inpatient MAGGIE BLUNT, TRUDI Wong [facility] 4TH DKA [id number] 04/28/2019 13:00:00 23:59:59 CLS Preadmit MELVIN BLUNT, AIDAN [facility] RAD CKD STAGE 3 [id number] 01/05/2019 10:30:00 019 23:59:59 CLS Outpatient NATALIIA VAZQUEZ DO [facility] LAB N18.9 [id number] 12/01/2018 17:11:00 23:59:59 CLS Outpatient NATALIIA VAZQUEZ DO [facility] LAB E10.65 [id number] 07/23/2018 10:23:00 09/06/2 018 23:59:59 CLS Outpatient KARY ROWE DO [facility] RAD TRAUMA LEFT ELB OW [id number] 04/15/2018 08:02:00 018 23:59:59 CLS Outpatient NATALIIA VAZQUEZ DO L [facility] LAB E10.65 [id number] 08/27/2017 08:40:00 017 23:59:59 CLS Outpatient KARY ROWE DO [facility] LAB INC LIVER ENZYM ES, HYPERGLYCEMIA [id number] 07/22/2017 19:16:00 017 23:17:00 DIS Emergency LIZET MAS APRN [facility] ER VOMITING [id number] 07/07/2017 07:38:00 23:59:59 CLS Outpatient NATALIIA VAZQUEZ DO L [facility] LAB E10.65 [id number] 06/14/2016 08:31:00 016 23:59:59 CLS Outpatient NATALIIA VAZQUEZ DO L [facility] LAB DIABETES MELLIT US TYPE 1 [id number] 04/09/2016 09:58:00 016 23:59:59 CLS Outpatient NATALIIA VAZQUEZ DO L [facility] LAB [id number] 03/15/2016 09:39:00 016 23:59:59 CLS Outpatient BARBARA BENTLEY MD [facility] LAB CHRONIC KIDNEY DISEASE,DIABETES TYPE I,PROTEINURIA [id number] 2016 15:41:00 016 18:19:00 DIS Emergency SUZETTE HEATH MD [facility] ER LOW BLOOD SUGAR ,WITHDRAWAL [id number] 12/12/2015 13:02:00 016 23:59:59 CLS Outpatient BARBARA BENTLEY MD [facility] LAB SKILLED NURSING MED U SE, CKD, HYPERLIPIDEMIA, [id number] 05/10/2015 23:17:00 14:00:00 DIS Inpatient KARY ROWE DO [facility] ICU OVERDOSE,AMS,HYPOTENSION,ACUTE KIDNEY INJURY [id number] 11/08/2014 00:41:00 23:59:59 CLS Preadmit KARY ROWE DO [facility] LAB DVT [id number] 08/09/2014 13:24:00 00:01:00 DIS Outpatient KARY ROWE DO [facility] LAB DVT [id number] 08/09/2014 13:19:00 23:59:59 CLS Outpatient GEORGE CHASE NATALIIA L [facility] LAB DIABETES [id number] 07/15/2014 11:53:00 23:59:59 CLS Outpatient SHEREE BLUNT, BARBARA Thibodeaux [facility] LAB DIABETES,KATE SHANKS, HTN [id number] 05/12/2014 07:48:00 23:59:59 CLS Outpatient GEORGE CHASE NATALIIA Clayton [facility] LAB DM I [id number] 03/09/2014 11:10:00 23:59:59 CLS Outpatient BARBARA BENTLEY MD [facility] LAB DIABETES UNCOMP L TYPEI,PROTEINURIA,BENIGN ESSENTIA [id number] 11/25/2013 11:12:00 00:01:00 DIS Outpatient KARY ROWE DO [facility] LAB DVT [id number] 09/17/2013 08:20:00 23:59:59 CLS Outpatient KARY ROWE DO [facility] RAD BREAST LUMP [id number] 08/26/2013 08:37:00 23:59:59 CLS Outpatient KARY ROWE DO [facility] RAD SCREENING [id number] 08/25/2013 15:05:00 23:59:59 CLS Outpatient SHEREE BLUNTBARBARA [facility] RAD CHRONIC KIDNEY [id number] 08/19/2013 11:01:00 013 23:59:59 CLS Outpatient BARBARA BENTLEY MD [facility] LAB ABNORMALITIES O F BLOOD [id number] 05/03/2020 18:54:[address] Inpatient TRUDI SERRANO MD [facility] ICU DKA [id number] 02/03/2015 07:49:00 Document Registration [id number] 02/03/2015 07:45:00 Document Registration [id number] 03/16/2013 00:00:00 Document Registration [id number] 01/01/2013 06:00:00 Document Registration [id number] 12/15/2012 12:50:00 Document Registration [id number] 12/15/2012 12:44:00 Document Registration [id number] 05/29/2012 11:00:00 Document Registration [id number] 04/27/2012 08:25:00 Document Registration [id number] 03/04/2012 11:54:00 Document Registration [id number] 01/20/2012 11:44:00 Document Registration [id number] 01/06/2012 12:34:00 Document Registration [id number] 01/03/2012 08:50:00 Document Registration [id number] 10/29/2011 14:13:00 Document Registration [id number] 10/24/2011 10:27:00 Document Registration [id number] 09/09/2011 11:35:00 Document Registration [id number] 05/29/2011 10:06:00 Document Registration [id number] 04/11/2011 11:54:00 Document Registration [id number] 02/03/2011 11:35:00 Document Registration [id number] 01/11/2011 11:51:00 Document Registration [id number] 11/30/2010 12:55:00 Document Registration
[2020-05-03] MEDS: HYDROcodone/APAP 5 MG/325 MG (LORTAB) TAB PO PRN (22:26)
[2020-05-03] MEDS: POTASSIUM CL 10MEQ/50ML IVPB 50 ML IV SCH (22:26)
--- OUTSIDE RECORDS SUMMARY | 2020-05-03 22:36 | XMS REPORT | Clinical Summary ---
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
--- OUTSIDE RECORDS SUMMARY | 2020-05-03 22:36 | XMS REPORT ---
Author Author [employer] [facility] [employer] [facility] Address [address] [place] [address] Care Team Providers Care Computer Teacher Name Role Phone KARY ROWE Sb Unavailable [...] diseases (3 levels of GELLENDER , DO (26698) sources.) other serum enzymes Residual Acquired Episodic Active LIZET MAS Not Availab le codes; absence of (32176) unclassified both cervix (4 sources.) and uterus Residual Acquired Episodic Active PITER OLSON Via codes; absence of CINTHYA Jane unclassified other organs Hospital - (1 source.) [place] (38968) Acute and Acute kidney Episodic Active KARY Not Avail able unspecified failure, GELLENDER , DO (92711) renal failure unspecified (16 sources.) Translations: [ ACUTE KIDNEY FAILURE WITH TUBULAR NECROS, ACUTE KIDNEY FAILURE, UNSPECIFIED] Respiratory Acute Episodic Active PITER HERRERA Vi a failure; respiratory MD Jane insufficiency; failure, Hospital - arrest (adult) unspecified [place] (6 sources.) whether with (32510) hypoxia or hypercapnia Allergic Allergy status Episodic Active VC Melania PIERRE Via reactions (8 to narcotic MD Jane sources.) agent status Hospital - Translations: [place] [ ALLERGY (99241) STATUS TO SULFONAMIDES STATUS, ALLERGY STATUS TO NARCOTIC AGENT STATUS] Deficiency and Anemia, Episodic Active NOEMÍ DONAVON , [facility] Via other anemia unspecified MD Jane (6 sources.) Hospital [facility] (71506) Personality Borderline Chronic Active KARY Not Avail able disorders (17 personality SOLEDAD DO (59221) sources.) disorder Translations: [ PERSONALITY DISORDER, UNSPECIFIED] Chronic kidney Chronic kidney Chronic Active AHMED No t Available disease (22 disease, stage ABOUL-MAGD , (39373) sources.) 3 (moderate) MD Translations: [ CHRONIC KIDNEY DISEASE, STAGE II (MILD), CHRONIC KIDNEY DISEASE, UNSPECIFIED, CHRONIC KIDNEY DISEASE, STAGE III (MODER, CHRONIC KIDNEY DISEASE, STAGE 2 (MILD)] Chronic Chronic Chronic Active NOEMÍ DONAVON , [facility] Via obstructive obstructive MD Jane pulmonary pulmonary [facility] - disease and disease, [place] bronchiectasis unspecified (94937) (14 sources.) Diabetes Diabetes Chronic Active MEICHELLE WOOD Not Avai lable mellitus mellitus (71737) without without complication mention of (11 sources.) complication, type I [juvenile type], not stated as uncontrolled Translations: [ TYPE 2 DIABETES MELLITUS WITHOUT COMPLIC] Diabetes Diabetes with Chronic Active NATALIIA Not Avai lable mellitus with other DO GEORGE (27313) complications specified (21 sources.) manifestations , type [...] N, TYPE 2 DIABETES MELLITUS W DIABETIC [employer]ITER [employer], DIAB W NEURO MANIFEST, TYPE I [JUVENILE [...] ailable (3 sources.) identity GELWINSTONDER , DO (06937) disorder Diseases of Elevated white Chronic Active NOEMÍ DONAVON , [facility] Via white blood blood cell MD Jane cells (7 count, Hospital - sources.) unspecified [place] (66563) Esophageal Esophageal Chronic Active KARY Not Availa ble disorders (21 reflux GELLENDER , DO (18747) sources.) Translations: [ GASTRO-ESOPHAG EAL REFLUX DISEASE WITHOUT] Residual Family history Episodic Active LIZET MAS Not A vailable codes; of ischemic (69845) unclassified heart disease (3 sources.) and other diseases of the circulatory system Residual Family history Episodic Active LIZET MAS [facility] Via codes; [facility] un[facility] neoplasm of Hospital - (1 source.) other organs [place] or systems (28419) Gastrointestin Gastrointestin Episodic Active NOEMÍ RAPHAEL [facility] Via al hemorrhage al hemorrhage, MD Jane (3 sources.) unspecified Hospital - [place] (04461) Other Gastroparesis Episodic Active LIZET MAS [facility] Via disorders of CINTHYA [place] stomach and Hospital - duodenum (1 [place] source.) (02061) Other injuries History of Episodic Active NOEMÍ RAPHAEL V [facility] Via and conditions falling MD Jane due to Hospital - external [place] causes (6 (64799) sources.) Diabetes Hyperglycemia, Episodic Active KARY Not Ursula ilable mellitus unspecified GELLENDER , DO (47315) without complication (3 sources.) Disorders of Hyperlipidemia Chronic Active AHMED Not Available lipid , unspecified ABOUL-MAGD , (08446) metabolism (21 Translations: MD sources.) [ HYPERLIPIDEMIA NEC/NOS] Hypertension Hypertensive Chronic Active MEICHELLE WOOD N ot Available with chronic kidney (99135) complications disease with and secondary stage 1 hypertension through stage (16 sources.) 4 chronic kidney disease, or unspecified chronic kidney disease Translations: [ HYPTNSV CHR KID DIS, BENIGN, W CHR KD ST] Other Hypotension, Episodic Active NOEMÍ RAPHAEL [facility] Via circulatory unspecified MD Jane disease (6 Hospital - sources.) [place] (26873) Other Hypotension, Episodic Active KARY Not Avail able circulatory unspecified GELLENDER , DO (15011) disease (3 sources.) Shock (6 Hypovolemic Episodic Active PITER HERRERA V ia sources.) shock MD Jane [facility] (16743) Other intermediate Episodic Active LIZET MAS Not Availa ble aftercare (4 (current) use (86627) sources.) of anticoagulants Other intermediate Episodic Active LIZET MAS Not Availa ble aftercare (18 (current) use (74248) sources.) of insulin Other Long-term Episodic Active KARY Not Availabl e aftercare (3 (current) use GELLENDER , DO (12628) sources.) of insulin Nonmalignant Lump or mass Episodic Active KARY Not Av ailable breast in breast GELLENDER , DO (82712) conditions (3 sources.) Headache; Migraine, Chronic Active SUZETTE Not Availabl e including unspecified, MD KUMAR (46218) migraine (2 without sources.) mention of intractable migraine without mention of status migrainosus Nephritis; Nephritis and Chronic Active MEICHELLE WOOD No t Available nephrosis; nephropathy, (58755) renal not specified sclerosis (10 as acute or sources.) chronic, in diseases classified elsewhere Other Other Episodic Active KARY Not Available connective calcification GELLENDER , DO (55177) tissue disease of muscle, (2 sources.) other site Other nervous Other chronic Chronic Active TRUDI SERRANO [facility] Via system pain MD Jane disorders (3 Hospital - sources.) [place] (14407) Other nervous Other Chronic Active PITER HERRERA Via system encephalopathy MD Jane disorders (6 Hospital - sources.) [place] (82615) Other Other long Episodic Active AHMED Not Availab le aftercare (3 term (current) ABOUL-MAGD , (31609) sources.) drug therapy Unclassified Other Episodic Active KARY Not Availa ble (7 sources.) screening GELGURWINDER , DO (99934) mammogram Translations: [ ABNORMAL RESULTS OF LIVER FUNCTION STUDI] Other upper Other seasonal Chronic Active NOEMÍ RAPHAEL [facility] Via respiratory allergic MD Jane disease (7 rhinitis Hospital - sources.) [place] (02355) Other Pain in left Episodic Active KARY Not Avail able non-traumatic elbow GELLENDER , DO (91622) joint disorders (2 sources.) Other Personal Episodic Active NOEMÍ RAPHAEL [facility] Via circulatory history of MD Jane disease (3 other diseases Hospital - sources.) of the [place] circulatory (27454) system Gastroduodenal Personal Episodic Active NOEMÍ RAPHAEL [facility] Via ulcer (except history of MD Jane hemorrhage) peptic ulcer Hospital - (13 sources.) disease [place] (82490) Other lower Personal Episodic Active LIZET RIVASES Not Avail able respiratory history of (78028) disease (5 pneumonia sources.) (recurrent) Phlebitis; Personal Episodic Active KARY Not Availabl e thrombophlebit history of GELLENDER , DO (15891) is and venous thromboembolis thrombosis and m (20 embolism sources.) Translations: [ ACUTE VENOUS EMBOLISM THROMBOSIS UNSP , PERSONAL HISTORY OF OTHER VENOUS THROMBO] Pneumonia Pneumonia due Episodic Active PITER HERRERA Via (except that to MD Jane caused by Streptococcus Hospital - tuberculosis pneumoniae [place] or sexually Translations: (21834) transmitted [ PULMONARY disease) (2 CANDIDIASIS] sources.) Poisoning by Poisoning by Episodic Active KARY Not Av ailable psychotropic benzodiazepine GELLENDER , DO (83895) agents (3 -based sources.) tranquilizers Poisoning by Poisoning by Episodic Active KARY Not Av ailable other other opiates GELLENDER , DO (86422) medications and related and drugs (3 narcotics sources.) Other Presence of Chronic Active PITER HERRERA V ia circulatory other vascular MD Jane disease (7 implants and Hospital - sources.) grafts [place] (97544) Genitourinary Presence of Chronic Active NOEMÍ RAPHAEL [facility] Via symptoms and urogenital MD Jane ill-defined implants Hospital - conditions (3 [place] sources.) (92706) Genitourinary Proteinuria, Episodic Active MEICHELLE WOOD Not Available symptoms and unspecified (72219) ill-defined Translations: conditions (20 [ PROTEINURIA] sources.) Rheumatoid Rheumatoid Chronic Active KARY Not Availa ble arthritis and arthritis GELLENDER , DO (35385) related Translations: disease (21 [ RHEUMATOID sources.) ARTHRITIS, UNSPECIFIED] Abdominal pain Right lower Episodic Active LIZET MAS Not Available (5 sources.) quadrant pain (42432) Septicemia Sepsis, Episodic Active PITER HERRERA Via (except in unspecified MD Jane labor) (4 organism Hospital - sources.) Translations: [place] [ SEVERE (54459) SEPSIS WITHOUT SEPTIC SHOCK] Cardiac Tachycardia, Episodic Active NOEMÍ RAPHAEL [facility] Via dysrhythmias unspecified MD Jane (6 sources.) Hospital - [place] (26354) Asthma (5 Unspecified Chronic Active KARY Not Availa ble sources.) asthma, GELLENDER , DO (70088) uncomplicated Translations: [ ASTHMA, UNSPECIFIED] Essential Unspecified Chronic Active KARY Not Availa ble hypertension essential GELLENDER , DO (08898) (1 source.) hypertension Osteoarthritis Unspecified Chronic Active LIZET MAS Not Available (17 sources.) osteoarthritis (45327) , unspecified site Translations: [ PRIMARY OSTEOARTHRITIS , UNSPECIFIED SITE] Past or Other Problems Problem Normalized Date Last Normalized Normalized Provider Fa cility Classification Problem(s) Recorded Problem Problem Sta tus Duration External Accidental no information no information KARY N ot Available Injury - poisoning by GELLENDER , DO (37198) Poisoning (5 other opiates sources.) and related narcotics Translations: [ ACC POISN-BENZDIAZ TRANQ] Pancreatic Acute Episodic Completed KARY Not Availabl e disorders (not pancreatitis GELLENDER , DO (38281) diabetes) (1 source.) Spondylosis; Dorsalgia, Episodic Completed NOEMÍ RAPHAEL [facility] Via intervertebral unspecified MD Jane disc [facility] - disorders; [place] other back (00852) problems (7 sources.) Other Gastroparesis Episodic Completed KARY Not Avai lable disorders of GELLENDER , DO (17696) stomach and duodenum (1 source.) External Home accidents no information no information KARY Not Available Injury - Place GELLENDER , DO (57338) of occurrence (3 sources.) Noninfectious Other and Episodic Completed KARY Not Avai lable gastroenteriti unspecified GELLENDER , DO (89789) s (1 source.) noninfectious gastroenteriti s and colitis Nonspecific Other chest Episodic Completed PITER PIERRE Via chest pain (3 pain MD Jane sources.) [facility] (53792) Residual Patient's Episodic Completed NOEMÍ RAPHAEL [facility] Via codes; ilene Jane unclassified noncompliance Hospital - (7 sources.) with [place] medication (27052) regimen Other Personal Episodic Completed LIZET MAS Not Availab le gastrointestin history of (60799) al disorders other diseases (11 sources.) of the digestive system Nausea and Vomiting, no information no information PITER PIERRE Via vomiting (3 unspecified MD Jane sources.) [facility] () Procedures Procedure Normalized Procedure Procedure Result Performer Facility Date 12-27-2019 INSERTION OF no information no name [facility] Via risti ENDOTRACHEAL AIRWAY [facility] INTO TR (98061) 12-27-2019 RESPIRATORY no information no name [facility] Via [facility] isti VENTILATION, 24-96 [facility] CONSECUTI (78960) 12-27-2019 RESPIRATORY no information no name [facility] isti VENTILATION, LESS THAN [facility] [address] [place] ([address]) Immunizations The data below is from unstructured [...] inches 2016 3:40pm Height (Calculated Centimeters) 162. 161840 cm 2016 3:40pm Weight (Pounds) 175 pounds 2016 3:40pm Weight (Calculated Kilograms) 79.378 666 kilograms 2016 3:40pm Height 5 ft 4 in Weight 175 lb Body Mass Index 30.0 kg/m^2 Vital Response Date/Time Temperature (Fahrenheit) 97.1 degree s F (97.6 - 99.5) Temperature (Calculated Celsius) 36. 57675 degrees C (36.4 - 37.5) Temperature Source Temporal Pulse Rate (adult) 96 bpm (60 - 90) Respiratory Rate 20 bpm (12 - 24) O2 Sat by Pulse Oximetry 100 % (88 - 100) Blood Pressure 113/74 mm Hg Pain Pain Intensity 0 Height (Feet) 5 feet Height (Inches) 3.00 inches Height (Calculated Centimeters) 160. 410097 cm Weight (Pounds) 188 pounds Weight (Ounces) 0.0 oz Weight (Calculated Grams) 96240.366 gm Weight (Calculated Kilograms) 85.275 366 kilograms Calculated BMI 33.30 Vital Response Date/Time Temperature (Fahrenheit) 97.3 degree s F (97.6 - 99.5) 07/22/2017 7:27pm Temperature (Calculated Celsius) 36. 52213 degrees C (36.4 - 37.5) 07/22/2017 7:27pm [...] inches 07/22/2017 7:27pm Height (Calculated Centimeters) 165. 530873 cm 07/22/2017 7:27pm Height Method Stated 03/2017 [...] Prescriptions See Medication Section Referrals KARY ROWE [facility] Physician Additional Instructions/Education Al l discharge instructions [...] DO Order Date: Primary Care Physician Address: [facility] [place] [id number] Additional Instructions/Education 1. Follow-up with Dr. Dr. [...] (no VC Via [place] patient visit phone) [facility] (no phone) 11-19-2019 Emergency department no information no name no organization name - patient visit 11-19-2019 06-27-2019 Emergency department no information no name no organization name patient visit 03-04-2012 Emergency department no information no name no organization name - patient visit 03-04-2012 12-26-2019 Evaluation and no information NOEMÍ RAPHAEL MD (no [facility] [place] - management of phone) [facility] 01-01-2020 inpatient (no phone) 06-27-2019 Evaluation and [...] (no [facility] [place] - procedure phone) [facility] 01-01-2020 (no phone) 11-19-2019 Patient encounter no [...] Directives No 3:50pm Health Care Power of Dance Historian No 02/28/16 3:50pm Organ Donor No 02/28/16 3:50pm Resuscitation Status Full Code 02/28/16 3:50pm Directive Response Recor ded Date/Time Advance Directives No 1:07am Health Care Power of Dance Historian No 05/11/15 1:07am Organ Donor No 05/11/15 1:07am Resuscitation Status Full Code 05/11/15 1:07am Directive Response Recor ded Date/Time Advance Directives No 6:00am Health Care Power of Dance Historian No 01/01/13 6:00am Organ Donor No 01/01/13 6:00am Directive Response Recor ded Date/Time Advance Directives No 7:27pm Health Care Power of Dance Historian No 07/22/17 7:27pm Organ Donor No 07/22/17 7:27pm Resuscitation Status Full Code 07/22/17 7:27pm Discharge Instructions No hospital discharge instructions.No hospital discharge instructions.No hospital discharge instructions.No hospital discharge instruction information available. Additional Source Comments This clinical document has been generated using [employer] software that has been certified by the Office of the National Coordinator for Health Information Technology (ONC 15.99.04.3023.Diam.31.00.0.128538) and the National Committee for Palliative Medicine Physician (NCQA, as an eMeasure certified technology). FOR [...] BASED ON T HE PRIMARY CLINICAL RECORDS. [employer] provides no warranty or guara ntee of [...]
--- OUTSIDE RECORDS SUMMARY | 2020-05-03 22:36 | XMS REPORT | Clinical Summary ---
Author Author [facility] Address Unknown Phone Unavailable Care Team Providers Care Digester Name Role Phone PCP Unavailable Allergies Not [...] 2013 Vaccine (RZV,Shingrix) (1 of 2 - [facility] 2 Dose Standard) Influenza Vaccine (Season 07/18/2020 Ended) Pneumo-Vaccine: Peds (0-5 Aged Out No longer el igible based on patient's age to Yrs) & At-Risk Patients complete this topic (6-64 Yrs) Results Not on filefrom Last 3 Months
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
[2020-05-04] VITALS (16 sets, daily range): BP systolic 84–111; BP diastolic 43–74
[2020-05-04] MEDS: POTASSIUM CL 10MEQ/50ML IVPB 50 ML IV SCH ×4 (00:23→06:55)
[2020-05-04 00:55] LABS: CALCIUM 7.8 MG/DL (8.5-10.1); CREATININE SERUM 2.74 MG/DL (0.60-1.30); POTASSIUM 4.5 MMOL/L (3.6-5.0)
[2020-05-04] MEDS: 1/2 NS IV SOLUTION 1,000 ML IV SCH ×4 (01:17→15:53)
[2020-05-04 03:23] LABS: BASOPHILS % (AUTO) 0 % (0-10); EOSINOPHILS % (AUTO) 0 % (0-10); HEMATOCRIT 28 % (35-52); HEMOGLOBIN 9.6 G/DL (11.5-16.0); LYMPHOCYTES # (AUTO) 2.8 X 10^3 (1.0-4.0); LYMPHOCYTES % (AUTO) 23 % (12-44); MEAN CORPUSCULAR HEMOGLOBIN 31 PG (25-34); MEAN CORPUSCULAR HGB CONC 35 G/DL (32-36); MEAN CORPUSCULAR VOLUME 89 FL (80-99); MEAN PLATELET VOLUME 9.6 FL (7.4-10.4); MONOCYTES # (AUTO) 1.2 X 10^3 (0.0-1.0); MONOCYTES % (AUTO) 10 % (0-12); NEUTROPHILS # (AUTO) 8.3 X 10^3 (1.8-7.8); NEUTROPHILS % (AUTO) 68 % (42-75); PLATELET COUNT 356 10^3/uL (130-400); RED CELL DISTRIBUTION WIDTH 12.8 % (10.0-14.5); WHITE BLOOD COUNT 12.4 10^3/uL (4.3-11.0)
[2020-05-04 03:48] LABS: ALBUMIN 2.7 GM/DL (3.2-4.5); BILIRUBIN,TOTAL 0.4 MG/DL (0.1-1.0); CALCIUM 7.7 MG/DL (8.5-10.1); CREATININE SERUM 2.6 MG/DL (0.60-1.30); PHOSPHORUS 5.4 MG/DL (2.3-4.7); POTASSIUM 4.6 MMOL/L (3.6-5.0)
[2020-05-04] MEDS: HYDROcodone/APAP 5 MG/325 MG (LORTAB) TAB PO PRN ×3 (04:31→20:18)
--- NOTE | 2020-05-04 05:13 | Pulmonary Consultation ---
History of Present Illness History of Present Illness Date Seen by Provider: May 04, 2020 Time Seen by Provider: 05:11 Date of Admission Allergies and Home Medications Allergies Coded Allergies: Sulfa (Sulfonamide Antibiotics) (Unverified Allergy, Unknown, 05/11/15) codeine (Verified Allergy, Unknown, TAKES ULTRAM AT HOME, 11/18/08) ketorolac (Verified Allergy, Unknown, 10/05/08) tramadol (Verified Allergy, Unknown, 11/02/11) Home Medications Albuterol Sulfate 1 Puff Puff, 2 PUFF IH TID PRN for SHORTNESS OF BREATH, (Reported) Insulin Determir 1,000 Units/10 Ml Soln, 13 UNIT SQ HS Prescribed by: TRUDI SERRANO on 01/01/20 1008 Insulin Lispro 100 Unit/1 Ml Insuln.pen, 5 UNITS SQ TIDWM, (Reported) Lisinopril 20 Mg Tablet, 20 MG PO DAILY Prescribed by: TRUDI SERRANO on 01/01/20 1008 Magnesium Chloride 64 Mg Tab, 2 TAB PO Q48H, (Reported) Montelukast Sodium 10 Mg Tablet, 5 MG PO DAILY, (Reported) TAKES OF A 10 MG TO EQUAL 5MG DAILY Niacinamide 500 Mg Tablet, 500 MG PO Q48H, (Reported) Potassium Gluconate 99 Mg Tablet, 99 MG PO Q48H, (Reported) Past Ydxmldn-Hvnflr-Yzglkm Hx Patient Social History Alcohol Use: Denies Use Recreational Drug Use: No Drug of Choice: THC Smoking Status: Current Everyday Smoker Type Used: Cigarettes 2nd Hand Smoke Exposure: No Recent Foreign Travel: No Contact w/Someone Who Travel: No Recent Infectious Disease Expo: No Recent Hopitalizations: No Immunizations Up To Date Tetanus Booster (TDap): Unknown Date of Pneumonia Vaccine: Aug 17, 2012 Date of Influenza Vaccine: Aug 17, 2012 Seasonal Allergies Seasonal Allergies: No Past Medical History Surgeries: Yes (renal stents) Adenoidectomy, Ear Surgery, Hysterectomy, Tonsillectomy Respiratory: Yes Asthma, Pneumonia, Chronic Bronchitis Cardiac: Yes Deep Vein Thrombosis Neurological: Yes Neuropathy Reproductive Disorders: Yes Female Reproductive Disorders: Menstrual Problems Genitourinary: Yes Renal Failure Gastrointestinal: Yes (gastroparesis) Gastroesophageal Reflux, Pancreatitis, Ulcer Musculoskeletal: Yes Arthritis, Rheumatoid Arthritis, Fractures Endocrine: Yes Diabetes, Insulin dep HEENT: No Tonsilitis Loss of Vision: Denies Hearing Impairment: Denies Cancer: No Psychosocial: Yes Personality Disorder Integumentary: No Blood Disorders: No Adverse Reaction/Blood Tranf: No Family Medical History FH: thyroid cancer G8 SISTER FHx: macular degeneration 19 MOTHER Glaucoma G8 BROTHER Heart Disease, Cancer, Diabetes Review of Systems Time Seen by Provider: 05:13 Sepsis Event Evaluation Height, Weight, BMI Height: 5'5.00" Weight: 151lbs. 1.0oz. 68.668854le; 26.63 BMI Method:Stated Exam Exam Vital Signs Date Time Temp Pulse Resp B/P (MAP) Pulse Ox O2 Delivery O2 Flow Rate FiO2 05/04/20 04:00 Room Air 05/04/20 03:00 98 22 98/54 (69) 95 Room Air 05/04/20 02:00 98 19 110/52 (71) 94 Room Air 05/04/20 01:00 90 05/04/20 01:00 101 20 96/43 (60) 93 Room Air 05/04/20 00:00 Room Air 05/04/20 00:00 101 21 92/74 (80) 93 Room Air 05/03/20 23:00 107 20 109/50 (69) 90 Room Air 05/03/20 22:00 101 23 98/56 (70) 92 Room Air 05/03/20 21:30 105 21 99/47 (64) 90 Room Air 05/03/20 21:15 104 12 109/58 (75) 93 Room Air 05/03/20 21:00 105 16 117/55 (75) 97 Room Air 05/03/20 20:45 107 13 101/66 (78) 100 Room Air 05/03/20 20:30 110 20 103/65 (78) 97 Room Air 05/03/20 20:28 107 05/03/20 20:27 37.3 113 16 119/53 (75) 98 Room Air 05/03/20 20:20 Room Air 05/03/20 20:06 37.6 107 18 110/61 (102) 97 Room Air 05/03/20 17:59 37.6 122 18 134/86 (102) 98 I & O 05/04/20 07:00 Intake Total 4730 ml Output Total 375 ml Balance 4355 ml Height & Weight Height: 5'5.00" Weight: 151lbs. 1.0oz. 68.680706hw; 26.63 BMI Method:Stated General Appearance: No Apparent Distress, WD/WN HEENT: PERRL/EOMI, TMs Normal Respiratory: Normal Breath Sounds, No Accessory Muscle Use, No Respiratory Distress Cardiovascular: Regular Rate, Rhythm, Normal Peripheral Pulses Capillary Refill: Less Than 3 Seconds Extremity: Normal Capillary Refill, Normal Inspection Neurologic/Psychiatric: Alert, Oriented x3 Skin: Normal Color, Warm/Dry Results Lab Laboratory Tests 05/03/20 18:15 05/03/20 18:34 05/03/20 21:05 05/03/20 22:52 05/04/20 00:31 05/04/20 03:04 Assessment/Plan Assessment/Plan Acute DKA -Continue Protocol Rae use -Education BLESSING SCHULTZ DO May 04, 2020 05:13
--- NOTE | 2020-05-04 07:50 | History & Physical-Hospitalist ---
History of Present Illness HPI/Chief Complaint Pt is a 55yoCF with a PMH of IDDMII and CKD who presented to the ER due to nausea, vomiting, and elevated blood sugars. She states her symptoms started yesterday morning around 2-3am with profuse vomiting. She was unable to seek care then because she did not have a ride. She knew her blood sugar was high but could not find her insulin to help bring it down because she didn't feel well and her mom who was with her is blind. She normally takes 22 units Levemir twice daily and 5-15 units sliding scale with meals. Source: patient Date Seen 05/04/20 Time Seen by a Provider: 07:42 Attending Physician Trudi Castellanos MD PCP No,Local Physician Referring Physician Date of Admission May 03, 2020 at 18:54 Home Medications & Allergies Home Medications Reviewed patient Home Medication Reconciliation performed by pharmacy medication reconciliations aviation electronics technician and/or nursing. Patients Allergies have been reviewed. Allergies Allergies Coded Allergies Sulfa (Sulfonamide Antibiotics) (Unverified Allergy, Unknown, 05/11/15) codeine (Verified Allergy, Unknown, TAKES ULTRAM AT HOME, 11/18/08) ketorolac (Verified Allergy, Unknown, 10/05/08) tramadol (Verified Allergy, Unknown, 11/02/11) Past Kzbbclf-Wwpzyl-Tzwpxg Hx Past Med/Social Hx: Reviewed Nursing Past Med/Soc Hx Patient Social History Alcohol Use: Denies Use Recreational Drug Use: Yes Drug of Choice: THC Smoking Status: Current Everyday Smoker Type Used: Cigarettes 2nd Hand Smoke Exposure: No Recent Foreign Travel: No Contact w/other who traveled: No Recent Hopitalizations: No Recent Infectious Disease Expo: No Immunizations Up To Date Tetanus Booster (TDap): Unknown Date of Pneumonia Vaccine: Aug 17, 2012 Date of Influenza Vaccine: Aug 17, 2012 Seasonal Allergies Seasonal Allergies: No Past Medical History Surgeries: Adenoidectomy, Ear Surgery, Hysterectomy, Tonsillectomy Cardiac: Deep Vein Thrombosis Neurological: Neuropathy Reproductive: Yes Female Reproductive Disorders: Menstrual Problems Genitourinary: Renal Failure Gastrointestinal: Gastroesophageal Reflux, Pancreatitis, Ulcer Musculoskeletal: Arthritis, Rheumatoid Arthritis, Fractures Endocrine: Diabetes, Insulin dep HEENT: Tonsilitis Loss of Vision: Denies Hearing Impairment: Denies Psychosocial: Personality Disorder History of Blood Disorders: No Adverse Reaction to Blood High: No Family History Reviewed Nursing Family Hx FH: thyroid cancer G8 SISTER FHx: macular degeneration 19 MOTHER Glaucoma G8 BROTHER Heart Disease, Cancer, Diabetes Review of Systems Constitutional: No chills, No fever EENTM: no symptoms reported Respiratory: No cough, No short of breath Cardiovascular: No chest pain Gastrointestinal: No abdominal pain; nausea, vomiting Genitourinary: no symptoms reported Musculoskeletal: back pain (chronic) Skin: no symptoms reported Psychiatric/Neurological: No Symptoms Reported Physical Exam Physical Exam Vital Signs Vital Signs - First Documented 05/03/20 05/03/20 17:59 20:06 Temp 37.6 Pulse 122 Resp 18 B/P (MAP) 134/86 (102) Pulse Ox 98 O2 Delivery Room Air Capillary Refill : Less Than 3 Seconds Height, Weight, BMI Height: 5'5.00" Weight: 151lbs. 1.0oz. 68.101386vr; 26.63 BMI Method:Stated General Appearance: No Apparent Distress, Chronically ill HEENT: PERRL/EOMI, Moist Mucous Membranes; No Scleral Icterus (L), No Scleral Icterus (R) Neck: Normal Inspection, Supple Respiratory: Lungs Clear, No Accessory Muscle Use, No Respiratory Distress Cardiovascular: Regular Rate, Rhythm, No Murmur Gastrointestinal: Normal Bowel Sounds, Non Tender, Soft Genital/Rectal: Other (fontaine in place) Extremity: Normal Capillary Refill, No Calf Tenderness, No Pedal Edema Neurologic/Psychiatric: Alert, Oriented x3, Normal Mood/Affect Skin: Normal Color, Warm/Dry, Other (scab on forehead) Results Results/Procedures Labs Laboratory Tests 05/03/20 18:15 05/03/20 18:34 05/03/20 21:05 05/03/20 22:52 05/04/20 00:31 05/04/20 03:04 Patient resulted labs reviewed. Assessment/Plan Admission Diagnosis DKA Admission Status: Inpatient Order (span 2 midnights) Reason for Inpatient Admission: insulin gtt, bs over 1300 Assessment and Plan DKA IDDMII Presented with BS 1322, bicarb of 8, and gap of 29 Admitted to ICU for DKA Doing much better, gap now closed Will transition to bolus insulin and DC insulin gtt A1c ordered Acute on CKD stage 3a Development Spec 3.27 on arrival Currently 2.6 Continue IVF Monitor UOP HTN hold home metoprolol for hypotension Chronic pain Continue home meds Diagnosis/Problems Diagnosis/Problems (1) Insulin dependent diabetes mellitus Status: Chronic (2) Hypertension Status: Chronic Qualifiers: Hypertension type: essential hypertension Qualified Codes: I10 - Essential (primary) hypertension (3) DKA (diabetic ketoacidoses) Status: Acute Qualifiers: Diabetes mellitus type: type 2 Diabetes mellitus complication detail: without coma Qualified Codes: E11.10 - Type 2 diabetes mellitus with ketoacidosis without coma (4) Hypotension Status: Acute Qualifiers: Hypotension type: hypotension due to hypovolemia Qualified Codes: I95.89 - Other hypotension; E86.1 - Hypovolemia (5) Acute kidney injury superimposed on chronic kidney disease Status: Acute Clinical Quality Measures DVT/VTE Risk/Contraindication: Risk Factor Score Per Nursin RFS Level Per Nursing on Admit: 4+=Very High TRUDI CASTELLANOS MD May 04, 2020 07:50
[2020-05-04] MEDS ORDERED: ANTACID SUSP 30 ML UDC (MYLANTA) PO PRN (08:00)
[2020-05-04] MEDS ORDERED: ENOXAPARIN 40 MG/0.4 ML (LOVENOX) SYR SQ SCH (08:00)
[2020-05-04] MEDS ORDERED: MILK OF MAGNESIA 400 MG/5 ML 30 ML UDC PO PRN (08:00)
[2020-05-04] MEDS ORDERED: ACETAMINOPHEN 325 MG TABLET PO PRN (08:00)
[2020-05-04] MEDS ORDERED: BENZONATATE 100 MG (TESSALON) CAPSULE PO PRN (08:00)
[2020-05-04 08:24] LABS: CALCIUM 7.9 MG/DL (8.5-10.1); CREATININE SERUM 2.53 MG/DL (0.60-1.30); POTASSIUM 4.8 MMOL/L (3.6-5.0)
[2020-05-04] MEDS: ENOXAPARIN 30 MG/0.3 ML (LOVENOX) SYR SC SCH (08:34)
--- NOTE | 2020-05-04 11:10 | NUR ---
Pastoral care visit.
[2020-05-04] MEDS: inSUlin ASPART (NovoLOG) 1 UNIT/0.01 ML (CHARGE PER UNIT) SC SCH ×3 (11:38→20:20)
[2020-05-04] MEDS: DICYCLOMINE 10 MG (BENTYL) CAP PO SCH ×3 (11:39→20:18)
[2020-05-04] MEDS ORDERED: METO50TA15 PO (13:49)
[2020-05-04] MEDS ORDERED: LORA-405 PO (13:49)
[2020-05-04] MEDS ORDERED: DICL100G31 TOP (13:49)
[2020-05-04] MEDS ORDERED: MELA10TA2 PO (13:49)
[2020-05-04] MEDS ORDERED: OXYC5TAB96 PO (13:49)
[2020-05-04] MEDS ORDERED: FURO40TA4 PO (13:49)
[2020-05-04] MEDS ORDERED: NALO4SPR NS (13:49)
[2020-05-04] MEDS ORDERED: FLUT9.9S NSEACH (13:49)
[2020-05-04] MEDS ORDERED: DICY10CA12 PO (13:49)
[2020-05-04] MEDS ORDERED: METO10TA3 PO (13:49)
[2020-05-04] MEDS ORDERED: GABA-486 PO (13:49)
[2020-05-04] MEDS ORDERED: INSU100I29 SC (13:49)
[2020-05-04] MEDS ORDERED: OMEP20CA18 PO (13:49)
[2020-05-04] MEDS ORDERED: CHOL100045 PO (13:51)
[2020-05-04] MEDS ORDERED: ASCO10006 PO (13:51)
--- NOTE | 2020-05-04 14:00 | NUR ---
SPOKE WITH THE PT (SHE HAD A MED LIST FROM [facility] THAT I MADE A COPY OF & ATTACHED TO HER CHART) AND WENT THRU THE EXT MED HISTORY TO COMPLETE THE MED REC PT WAS ABLE TO TELL ME HOW SHE TAKES HER MEDICATIONS AND ALSO LET ME KNOW THAT [facility] IS BUBBLE PACKING HER MEDICATIONS FOR HER. OTC MEDS: VIT C VIT D MELATONIN POTASSIUM Addendum: 05/04/20 at 1440 by CAMRON HAND CPhT MONTELUKAST 10MG LAST FILLED 11-23-2019 #15- PT DIDNT REALIZE SHE WAS NOT GETTING THIS MEDICATION IN HER BUBBLE PACKS FROM [facility]. SHE IS GOING TO REACH OUT TO THE PHARMACY AND GET THAT STRAIGHTENED OUT. Addendum: 05/04/20 at 1449 by CAMRON HAND CPhT PT ALSO GOT SERTRALINE IN FEBRUARY 2020 HOWEVER THE PT IS NO LONGER TAKING
--- NOTE | 2020-05-04 14:41 | NUR ---
RD ASSESSMENT PMHx: DM; CKD; DVT; GERD; pancreatitis PT INTERACTION: Pt was awake and pleasant during nutrition assessment. Pt states current appetite is good and has been for some time. avg PO intake 100% x2meal, per chart review. Pt states following a regular diet at home, and has no issues with chewing/swallowing food, despite missing some teeth. Pt states some recent issues with nausea and vomiting. Pt states no recent issues with constipation or diarrhea, and that her last BM was 05/03. Note pt not currently on bowel regimen per chart review. Pt states having "weight issues," but did not elaborate, even after prompted. Note recent 15# wt loss x4mon, per chart review. Pt states current DM management is "pretty good, and I'm following the suggestions you gave the last time I was here." Note recent HbA1c of 14.8, taken 12/27/19, per chart review. ABNORMAL NUTRITION-RELATED LAB VALUES LOW: Na 128; Ca 7.9 HIGH: BNU 65; cr 2.53; glu 215 Est. kcal needs: 9742-9027 kcal | 20-25 kcal/kg Est. Pro needs: 59-73 g Pro | 0.8-1.0 g Pro/kg PES STATEMENT: Given current PO intake, no nutrition diagnosis at this time (NO-1.1) INTERVENTION: Continue with current diet order of CHO 60g/m 1snack diet. Discussed and reinforced previous diet education on DM management. Pt verbalized portion control and CHO counting suggestions mentioned during last hospital stay. Encouraged pt to continue with DM management. Will continue to follow and reassess as pt needs, intake, and status change. MONITOR/EVALUATE: PO Intake; Plan of Care; Hydration Status; Weight Status; Lab Values Jerzy Barbosa, MS, RD, LD
[2020-05-04 16:27] LABS: POTASSIUM 4.7 MMOL/L (3.6-5.0)
[2020-05-04 16:28] LABS: CALCIUM 7.9 MG/DL (8.5-10.1)
[2020-05-04 16:32] LABS: CREATININE SERUM 2.42 MG/DL (0.60-1.30)
--- NOTE | 2020-05-04 17:40 | NUR ---
Patient transferred to 420-1 per BED accompanied by ICU staff. Patient and family notified and understand transfer. Personal belongings with patient. Report given to THIS RN FROM STAGE PRODUCER.
[2020-05-04] MEDS: MELATONIN 3 MG TABLET PO PRN (20:18)
[2020-05-05 04:00] VITALS: BP 118/65
[2020-05-05] MEDS: HYDROcodone/APAP 5 MG/325 MG (LORTAB) TAB PO PRN ×5 (04:00→22:24)
[2020-05-05] MEDS: DICYCLOMINE 10 MG (BENTYL) CAP PO SCH ×4 (04:00→20:59)
[2020-05-05] MEDS: inSUlin ASPART (NovoLOG) 1 UNIT/0.01 ML (CHARGE PER UNIT) SC SCH ×4 (04:03→20:26)
--- NOTE | 2020-05-05 04:03 | NUR ---
accu ck 45 480cc apple juice given per pt request. pt refused milk or peanutbutter.. states this will bring it up pt is a/o no s/s of hypoglycemia noted will retake accu ck
[2020-05-05 06:00] VITALS: BP 118/65
[2020-05-05 06:35] LABS: BASOPHILS % (AUTO) 0 % (0-10); EOSINOPHILS # (AUTO) 0.2 10^3/uL (0.0-0.3); EOSINOPHILS % (AUTO) 3 % (0-10); HEMATOCRIT 30 % (35-52); LYMPHOCYTES # (AUTO) 2.2 X 10^3 (1.0-4.0); LYMPHOCYTES % (AUTO) 25 % (12-44); MEAN CORPUSCULAR HEMOGLOBIN 31 PG (25-34); MEAN CORPUSCULAR HGB CONC 34 G/DL (32-36); MEAN CORPUSCULAR VOLUME 92 FL (80-99); MEAN PLATELET VOLUME 9.5 FL (7.4-10.4); MONOCYTES # (AUTO) 0.5 X 10^3 (0.0-1.0); MONOCYTES % (AUTO) 6 % (0-12); NEUTROPHILS # (AUTO) 5.9 X 10^3 (1.8-7.8); NEUTROPHILS % (AUTO) 67 % (42-75); PLATELET COUNT 360 10^3/uL (130-400); RED CELL DISTRIBUTION WIDTH 13.7 % (10.0-14.5); WHITE BLOOD COUNT 8.9 10^3/uL (4.3-11.0)
[2020-05-05 06:41] LABS: POTASSIUM 4.3 MMOL/L (3.6-5.0)
[2020-05-05 06:43] LABS: CALCIUM 8.6 MG/DL (8.5-10.1)
[2020-05-05 06:47] LABS: CREATININE SERUM 2.15 MG/DL (0.60-1.30); PHOSPHORUS 4.7 MG/DL (2.3-4.7)
[2020-05-05 06:49] LABS: MAGNESIUM 2.2 MG/DL (1.6-2.4)
[2020-05-05] MEDS: ENOXAPARIN 30 MG/0.3 ML (LOVENOX) SYR SC SCH (07:50)
[2020-05-05] MEDS: ONDANSETRON 4 MG/2 ML (SDV) Z0FRAN IV PRN (07:50)
[2020-05-05 08:00] VITALS: BP 144/75
--- NOTE | 2020-05-05 10:04 | Progress Note - Hospitalist ---
Subjective HPI/CC On Admission Date Seen by Provider: May 05, 2020 Time Seen by Provider: 09:59 Pt is a 55yoCF with a PMH of IDDMII and CKD who presented to the ER due to nausea, vomiting, and elevated blood sugars. She states her symptoms started yesterday morning around 2-3am with profuse vomiting. She was unable to seek care then because she did not have a ride. She knew her blood sugar was high but could not find her insulin to help bring it down because she didn't feel well and her mom who was with her is blind. She normally takes 22 units Levemir twice daily and 5-15 units sliding scale with meals. Subjective/Events-last exam Pt reports feeling better today. Nauseated earlier this morning. Objective Exam Vital Signs Vital Signs Date Time Temp Pulse Resp B/P (MAP) Pulse Ox O2 Delivery O2 Flow Rate FiO2 05/05/20 06:00 36.5 74 18 118/65 (82) 99 Room Air Capillary Refill : Less Than 3 Seconds General Appearance: No Apparent Distress, Chronically ill Respiratory: Lungs Clear, No Respiratory Distress Cardiovascular: Regular Rate, Rhythm, No Murmur Gastrointestinal: Normal Bowel Sounds, Non Tender, Soft Neurologic/Psychiatric: Alert, Oriented x3 Results/Procedures Lab Laboratory Tests 05/04/20 16:00 05/05/20 05:31 05/05/20 05:51 Patient resulted labs reviewed. 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 Currently 2.15 Good UOP HTN BP well controlled without medications Chronic pain Continue home meds Diagnosis/Problems Diagnosis/Problems (1) Insulin dependent diabetes mellitus Status: Chronic (2) Hypertension Status: Chronic Qualifiers: Hypertension type: essential hypertension Qualified Codes: I10 - Essential (primary) hypertension (3) DKA (diabetic ketoacidoses) Status: Acute Qualifiers: Diabetes mellitus type: type 2 Diabetes mellitus complication detail: without coma Qualified Codes: E11.10 - Type 2 diabetes mellitus with ketoacidosis without coma (4) Hypotension Status: Acute Qualifiers: Hypotension type: hypotension due to hypovolemia Qualified Codes: I95.89 - Other hypotension; E86.1 - Hypovolemia (5) Acute kidney injury superimposed on chronic kidney disease Status: Acute Clinical Quality Measures DVT/VTE Risk/Contraindication: Risk Factor Score Per Nursin RFS Level Per Nursing on Admit: 4+=Very High TRUDI SERRANO MD May 05, 2020 10:03
--- NOTE | 2020-05-05 11:51 | NUR ---
Received dietary consult for diet education on DM management. Note this RD discussed and provided diet education on 05/04, reinforcing education from previous hospital stay. Pt verbalized understanding and was able to provide teachback on some topics discussed from previous stay. Will continue to follow and reassess as pt needs, intake, and status change. Jerzy Barbosa, MS, RD, LD
[2020-05-05] MEDS: inSUlin (REGULAR) HUMAN 1 UNIT/0.01 ML (CHARGE PER UNIT) IV SCH (12:03)
[2020-05-05 16:00] VITALS: BP 145/72
--- NOTE | 2020-05-05 16:42 | NUR ---
CM/SS visited with the patient for discharge planning. The patient reports that she was planning to discharge; however, her blood glucose was too low. CM/SS asked the patient what brought her into the hospital, she reports that she could not find her insulin so she couldn't take it. According to the patient her blind mother was also present at the house but could not help her search for it. Per the patient, she has been admitted to our facility x3 and [facility] x3 since October for this problem. Caregivers: The patient has caregivers through [employer]. She is allotted 32 hours weekly for day time help and has 7 nights a week of sleep support. She is looking for additional caregivers to help fill the gap during the days but hasn't found someone she trust. CM/SS provided the patient with a private caregiver list and caregiver agency list. She verbalized understanding. The patient has not had home health in the past. Transportation: The patient uses [employer] for transportation to all of her doctors appointments. The patient reports that Chuck helped her set up a primary care and multiple other physicians. She states shes had about 2 appointments at least every week. Medicine: The patient reports that she is able to afford all of her Diabetic supplies at this time and has not had to go without. The patient has Medicaid that helps her pay for prescriptions. Equipment: The patient reports that she does have a front wheeled walker that she uses but is unsure if it is in her sons car. She states she has to use that for the majority of the time when ambulating. The patient verbalized the possibility of needing a motorized scooter. CM/SS instructed her to call insurance to see what equipment is covered vs self pay. She verbalized understanding. The patient also has a cane accessible if needed. Support: The patient states that she has a good support system through family. 1 son and 1 daughter, her grandchildren, and her mother. She states that her grandchildren have "given her something to live for". She also stated that sometimes her family is the root of the stress but they are all she has. No further needs at this time.
--- NOTE | 2020-05-05 20:00 | NUR ---
DURING PT ASSESSMENT PT EXPRESSES CONCERN TO THIS RN ABOUT HER DROP IN BLOOD SUGAR. PT STATES AFTER RECEIVING INSULIN FROM [facility] SHE TOOK HER BS AT 1500 ON HER OWN GLUCOMETER AND IT WAS 38. SHE RECEIVED FOOD. SHE TOOK BS AGAIN AT 1513 ON HER OWN GLUCOMETER AND IT WAS 65. THIS RN WITNESSED THIS ON HER MACHINE. THIS RN LOOK AT OUR LABS AT 1556 IT SHOWED AT BS OF 66, THEN AT 1710 BS OF 77,AND AT 2017 101. PT HAS SIMON SCHEDULED FOR THIS HS. THIS RN INFORMED PT DR. SERRANO WOULD BE CALLED AT THIS TIME TO DISCUSS INSULIN AND DROP IN BS.
--- NOTE | 2020-05-05 20:40 | NUR ---
DR. SERRANO CALLED AT THIS TIME AND INFORMED OF PT DROP IN BS AND CONCERN WITH TAKING LEVEMIR THIS HS. ORDER TO HOLD LEVEMIR FOR THIS HS.
[2020-05-05] MEDS: MELATONIN 3 MG TABLET PO PRN (22:24)
[2020-05-06 00:41] VITALS: BP 139/89
[2020-05-06] MEDS: HYDROcodone/APAP 5 MG/325 MG (LORTAB) TAB PO PRN ×2 (03:25→08:31)
[2020-05-06 05:34] LABS: BASOPHILS % (AUTO) 1 % (0-10); EOSINOPHILS # (AUTO) 0.2 10^3/uL (0.0-0.3); EOSINOPHILS % (AUTO) 3 % (0-10); HEMATOCRIT 31 % (35-52); HEMOGLOBIN 10.2 G/DL (11.5-16.0); LYMPHOCYTES % (AUTO) 39 % (12-44); MEAN CORPUSCULAR HEMOGLOBIN 30 PG (25-34); MEAN CORPUSCULAR HGB CONC 33 G/DL (32-36); MEAN CORPUSCULAR VOLUME 93 FL (80-99); MEAN PLATELET VOLUME 9.2 FL (7.4-10.4); MONOCYTES # (AUTO) 0.3 X 10^3 (0.0-1.0); MONOCYTES % (AUTO) 5 % (0-12); NEUTROPHILS # (AUTO) 2.6 X 10^3 (1.8-7.8); NEUTROPHILS % (AUTO) 52 % (42-75); PLATELET COUNT 314 10^3/uL (130-400); RED CELL DISTRIBUTION WIDTH 13.8 % (10.0-14.5)
[2020-05-06] MEDS: ONDANSETRON 4 MG/2 ML (SDV) Z0FRAN IV PRN (05:39)
[2020-05-06 05:52] LABS: POTASSIUM 5.1 MMOL/L (3.6-5.0)
[2020-05-06 05:53] LABS: CALCIUM 8.4 MG/DL (8.5-10.1)
[2020-05-06 05:57] LABS: CREATININE SERUM 2.11 MG/DL (0.60-1.30)
[2020-05-06] MEDS: DICYCLOMINE 10 MG (BENTYL) CAP PO SCH (06:44)
[2020-05-06] MEDS: inSUlin ASPART (NovoLOG) 1 UNIT/0.01 ML (CHARGE PER UNIT) SC SCH ×4 (06:45→20:30)
[2020-05-06 08:00] VITALS: BP 152/83
[2020-05-06] MEDS: ENOXAPARIN 30 MG/0.3 ML (LOVENOX) SYR SC SCH (08:26)
[2020-05-06] MEDS ORDERED: BISMUTH SUBSALICYLATE 240 ML (PEPTO BISMOL) PO PRN (10:45)
[2020-05-06] MEDS ORDERED: LORazepam 1 MG (ATIVAN) TAB PO PRN (10:45)
[2020-05-06] MEDS ORDERED: DICLOFENAC 1% GEL 100 GM (VOLTAREN) TUBE TOP PRN (10:45)
--- NOTE | 2020-05-06 10:47 | Progress Note - Hospitalist ---
Subjective HPI/CC On Admission Date Seen by Provider: May 06, 2020 Time Seen by Provider: 10:43 Pt is a 55yoCF with a PMH of IDDMII and CKD who presented to the ER due to nausea, vomiting, and elevated blood sugars. She states her symptoms started yesterday morning around 2-3am with profuse vomiting. She was unable to seek care then because she did not have a ride. She knew her blood sugar was high but could not find her insulin to help bring it down because she didn't feel well and her mom who was with her is blind. She normally takes 22 units Levemir twice daily and 5-15 units sliding scale with meals. Subjective/Events-last exam pt reports feeling better today but had her BS drop yesterday. She states she checked it herself and it was 38. Objective Exam Vital Signs Vital Signs Date Time Temp Pulse Resp B/P (MAP) Pulse Ox O2 Delivery O2 Flow Rate FiO2 05/06/20 08:00 37.3 88 20 152/83 (106) 99 Room Air Capillary Refill : Less Than 3 Seconds General Appearance: No Apparent Distress, WD/WN Respiratory: Lungs Clear, No Respiratory Distress Cardiovascular: Regular Rate, Rhythm, No Murmur Gastrointestinal: Normal Bowel Sounds, Soft Neurologic/Psychiatric: Alert, Oriented x3 Results/Procedures Lab Laboratory Tests 05/06/20 05:24 Patient resulted labs reviewed. Assessment/Plan Assessment and Plan Assess & Plan/Chief Complaint DKA- resolved IDDMII Doing well off insulin gtt Discussed home insulin regimen. 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 Currently 2.11- may be her new baseline Good UOP gastroparesis Resume reglan Pepto prn per patient request HTN BP trending up, resume metoprolol Chronic pain Neuropathy Continue home meds Resume gabapentin DVT ppx: Lovenox Diagnosis/Problems Diagnosis/Problems (1) Insulin dependent diabetes mellitus Status: Chronic (2) Hypertension Status: Chronic Qualifiers: Hypertension type: essential hypertension Qualified Codes: I10 - Essential (primary) hypertension (3) DKA (diabetic ketoacidoses) Status: Acute Qualifiers: Diabetes mellitus type: type 2 Diabetes mellitus complication detail: without coma Qualified Codes: E11.10 - Type 2 diabetes mellitus with ketoacidosis without coma (4) Hypotension Status: Acute Qualifiers: Hypotension type: hypotension due to hypovolemia Qualified Codes: I95.89 - Other hypotension; E86.1 - Hypovolemia (5) Acute kidney injury superimposed on chronic kidney disease Status: Acute Clinical Quality Measures DVT/VTE Risk/Contraindication: Risk Factor Score Per Nursin RFS Level Per Nursing on Admit: 4+=Very High TRUDI SERRANO MD May 06, 2020 10:47
[2020-05-06] MEDS: METOCLOPRAMIDE 10 MG (REGLAN) TAB PO SCH ×3 (12:25→20:40)
[2020-05-06] MEDS: GABAPENTIN 100 MG (NEURONTIN) CAP PO SCH ×2 (12:25→20:40)
[2020-05-06 16:22] VITALS: BP 146/82
[2020-05-06] MEDS: meTOprolol TARTRATE 50 MG (LOPRESSOR) TAB PO SCH (20:40)
[2020-05-06] MEDS: MELATONIN 3 MG TABLET PO PRN (20:40)
[2020-05-06] MEDS ORDERED: MONTELUKAST 10 MG (SINGULAIR) TAB PO SCH (21:00)
[2020-05-07] VITALS: BP 164/77
[2020-05-07 05:20] LABS: BASOPHILS % (AUTO) 1 % (0-10); EOSINOPHILS # (AUTO) 0.2 10^3/uL (0.0-0.3); EOSINOPHILS % (AUTO) 3 % (0-10); HEMATOCRIT 34 % (35-52); HEMOGLOBIN 11.2 G/DL (11.5-16.0); LYMPHOCYTES # (AUTO) 2.4 X 10^3 (1.0-4.0); LYMPHOCYTES % (AUTO) 41 % (12-44); MEAN CORPUSCULAR HEMOGLOBIN 31 PG (25-34); MEAN CORPUSCULAR HGB CONC 33 G/DL (32-36); MEAN CORPUSCULAR VOLUME 94 FL (80-99); MEAN PLATELET VOLUME 9.3 FL (7.4-10.4); MONOCYTES # (AUTO) 0.4 X 10^3 (0.0-1.0); MONOCYTES % (AUTO) 7 % (0-12); NEUTROPHILS # (AUTO) 2.8 X 10^3 (1.8-7.8); NEUTROPHILS % (AUTO) 49 % (42-75); PLATELET COUNT 337 10^3/uL (130-400); RED CELL DISTRIBUTION WIDTH 13.7 % (10.0-14.5); WHITE BLOOD COUNT 5.7 10^3/uL (4.3-11.0)
[2020-05-07 05:27] LABS: POTASSIUM 4.4 MMOL/L (3.6-5.0)
[2020-05-07 05:28] LABS: CALCIUM 8.8 MG/DL (8.5-10.1)
[2020-05-07 05:33] LABS: CREATININE SERUM 1.64 MG/DL (0.60-1.30)
[2020-05-07] MEDS: inSUlin ASPART (NovoLOG) 1 UNIT/0.01 ML (CHARGE PER UNIT) SC SCH ×2 (06:24→11:39)
[2020-05-07] MEDS: METOCLOPRAMIDE 10 MG (REGLAN) TAB PO SCH (06:24)
[2020-05-07 08:00] VITALS: BP 152/83
[2020-05-07] MEDS ORDERED: ENOXAPARIN 40 MG/0.4 ML (LOVENOX) SYR SC SCH (08:00)
[2020-05-07] MEDS: meTOprolol TARTRATE 50 MG (LOPRESSOR) TAB PO SCH (08:09)
[2020-05-07] MEDS: GABAPENTIN 100 MG (NEURONTIN) CAP PO SCH (08:10)
[2020-05-07] MEDS ORDERED: FUROSEMIDE 40 MG (LASIX) TAB PO SCH (09:00)
[2020-05-07] MEDS ORDERED: FLUTICASONE NASAL SPRAY (FLONASE) 16 GM BTL NS SCH (09:00)
[2020-05-07] MEDS ORDERED: PANTOPRAZOLE 20 MG TABLET (PROTONIX) PO SCH (09:00)
[2020-05-07] MEDS ORDERED: OXYC5TAB96 PO (10:42)
--- NOTE | 2020-05-07 10:45 | Discharge Inst-Simple/Standard ---
Discharge Inst-Standard Discharge Medications New, Converted or Re-Newed RX: RX on Chart Patient Instructions/Follow Up Plan of Care/Instructions/FU: Please continue to take your medications as prescribed. Please follow up with your physicians as you have scheduled for this week. Activity as Tolerated: Yes Discharge Diet: ADA Diet Return to The Hospital For: Elevated blood sugar, chest pain, shortness of breath, confusion, lethargy, fever, inability to keep food or water down, if you feel you are getting worse. TRUDI SERRANO MD May 07, 2020 10:45
--- NOTE | 2020-05-07 10:58 | Discharge Summary ---
Diagnosis/Chief Complaint Date of Admission May 03, 2020 at 18:54 Date of Discharge Discharge Date: May 07, 2020 Admission Diagnosis DKA Primary Care No,Local Physician Discharge Diagnosis (1) Insulin dependent diabetes mellitus Status: Chronic (2) Hypertension Status: Chronic (3) DKA (diabetic ketoacidoses) Status: Acute (4) Hypotension Status: Acute (5) Acute kidney injury superimposed on chronic kidney disease Status: Acute Discharge Summary Discharge Physical Exam Allergies: Coded Allergies: Sulfa (Sulfonamide Antibiotics) (Unverified Allergy, Unknown, 05/11/15) codeine (Verified Allergy, Unknown, TAKES ULTRAM AT HOME, 11/18/08) ketorolac (Verified Allergy, Unknown, 10/05/08) tramadol (Verified Allergy, Unknown, 11/02/11) Vitals & I&Os Vital Signs Date Time Temp Pulse Resp B/P (MAP) Pulse Ox O2 Delivery O2 Flow Rate FiO2 05/07/20 09:00 Room Air 05/07/20 08:00 37.2 82 20 152/83 (106) 99 Hospital Course Labs (last 24 hrs) Laboratory Tests 05/06/20 11:14: Glucometer 272H 05/06/20 16:27: Glucometer 174H 05/06/20 20:28: Glucometer 149H 05/07/20 05:06: White Blood Count 5.7, Red Blood Count 3.65L, Hemoglobin 11.2L, Hematocrit 34L, Mean Corpuscular Volume 94, Mean Corpuscular Hemoglobin 31, Mean Corpuscular Hemoglobin Concent 33, Red Cell Distribution Width 13.7, Platelet Count 337, Mean Platelet Volume 9.3, Neutrophils (%) (Auto) 49, Lymphocytes (%) (Auto) 41, Monocytes (%) (Auto) 7, Eosinophils (%) (Auto) 3, Basophils (%) (Auto) 1, Neutrophils # (Auto) 2.8, Lymphocytes # (Auto) 2.4, Monocytes # (Auto) 0.4, Eosinophils # (Auto) 0.2, Basophils # (Auto) 0.0, Sodium Level 135, Potassium Level 4.4, Chloride Level 104, Carbon Dioxide Level 22, Anion Gap 9, Blood Urea Nitrogen 35H, Creatinine 1.64H, Estimat Glomerular Filtration Rate 32, BUN/Creatinine Ratio 21, Glucose Level 235H, Calcium Level 8.8 Microbiology 05/03/20 MRSA Screen - Final, Complete MRSA not isolated Patient resulted labs reviewed. Pending Labs Laboratory Tests 05/07/20 05:06: White Blood Count 5.7, Red Blood Count 3.65, Hemoglobin 11.2, Hematocrit 34, Mean Corpuscular Volume 94, Mean Corpuscular Hemoglobin 31, Mean Corpuscular Hemoglobin Concent 33, Red Cell Distribution Width 13.7, Platelet Count 337, Mean Platelet Volume 9.3, Neutrophils (%) (Auto) 49, Lymphocytes (%) (Auto) 41, Monocytes (%) (Auto) 7, Eosinophils (%) (Auto) 3, Basophils (%) (Auto) 1, Neutrophils # (Auto) 2.8, Lymphocytes # (Auto) 2.4, Monocytes # (Auto) 0.4, Eosinophils # (Auto) 0.2, Basophils # (Auto) 0.0, Sodium Level 135, Potassium Level 4.4, Chloride Level 104, Carbon Dioxide Level 22, Anion Gap 9, Blood Urea Nitrogen 35, Creatinine 1.64, Estimat Glomerular Filtration Rate 32, BUN/Creat inine Ratio 21, Glucose Level 235, Calcium Level 8.8 Discharge Home Medications: Active Scripts Active Oxycodone IR (Oxycodone HCl) 5 Mg Tablet 5 Mg PO DAILY PRN Reported Vitamin D3 (Cholecalciferol (Vitamin D3)) 25 Mcg Tablet 25 Mcg PO BID Vitamin C (Ascorbic Acid) 1,000 Mg Tablet 1,000 Mg PO DAILY Ativan (Lorazepam) 1 Mg Tablet 1 Mg PO DAILY PRN Melatonin 10 Mg Tablet 10 Mg PO HS Diclofenac Sodium 100 Gm Gel..gram. 1 Applic TOP QID PRN APPLY TO LEGS Levemir Flextouch (Insulin Detemir) 100 Unit/1 Ml Insuln.pen 22 Units SC HS Flonase Allergy Relief (Fluticasone Propionate) 9.9 Ml [place].susp 2 [place] NSEACH DAILY 1 SPRAY EACH NARE DAILY Furosemide 40 Mg Tablet 40 Mg PO DAILY Metoclopramide HCl 10 Mg Tablet 10 Mg PO QIDACHS Metoprolol Tartrate 50 Mg Tablet 50 Mg PO BID Narcan (Naloxone HCl) 4 Mg [place] 1 [place] NS UD PRN ADMINSTER 1 SPRAY IN 1 NOSTRIL 1 TIME- MAY REPEAT IN ALTERNATING NOSTRIL EVERY 2-3 MINUTES UNTIL RESPONSIVE OR EMS ARRIVES Omeprazole 20 Mg Capsule.dr 20 Mg PO DAILY Gabapentin 100 Mg Capsule 100 Mg PO TID Dicyclomine HCl 10 Mg Capsule 10 Mg PO QID Humalog Kwikpen (Insulin Lispro) 100 Unit/1 Ml Insuln.pen 5-15 Units SQ TIDWM Proair Hfa (Albuterol Sulfate) 1 Puff Puff 2 Puff IH TID PRN Potassium (Potassium Gluconate) 99 Mg Tablet 99 Mg PO DAILY Montelukast Sodium 10 Mg Tablet 10 Mg PO HS LAST FILLED 11-23-2019 #15 Instructions to patient/family Please see electronic discharge instructions given to patient. Clinical Quality Measures DVT/VTE Risk/Contraindication: Risk Factor Score Per Nursin RFS Level Per Nursing on Admit: 4+=Very High Problem Qualifiers (1) Hypertension: Hypertension type: essential hypertension Qualified Codes: I10 - Essential (primary) hypertension (2) DKA (diabetic ketoacidoses): Diabetes mellitus type: type 2 Diabetes mellitus complication detail: without coma Qualified Codes: E11.10 - Type 2 diabetes mellitus with ketoacidosis without coma (3) Hypotension: Hypotension type: hypotension due to hypovolemia Qualified Codes: I95.89 - Other hypotension; E86.1 - Hypovolemia TRUDI SERRANO MD May 07, 2020 10:58
--- NOTE | 2020-05-07 11:22 | NUR ---
patient refused blood sugar check and insulin at this time. she stated she didn't want it since she is going home
[2020-05-07 11:30] VITALS: BP 152/83
== END 2020-05-07 11:30 | disposition home or self-care (01) | DRG 638 ==
LOC: EDUNIT# 17:52 → ER 17:54 → ICU 18:54 → 4TH 05-04 17:30
PROVIDERS: ADMIT Family Medicine; ATTEND Family Medicine
DX: E11.10 Type 2 diabetes mellitus with ketoacidosis without coma (principal); N17.9 Acute kidney failure, unspecified; E11.22 Type 2 diabetes mellitus with diabetic chronic kidney disease; N18.3 Chronic kidney disease, stage 3 (moderate); E11.40 Type 2 diabetes mellitus with diabetic neuropathy, unspecified; E11.43 Type 2 diabetes mellitus with diabetic autonomic (poly)neuropathy; K31.84 Gastroparesis; I12.9 Hypertensive chronic kidney disease with stage 1 through stage 4 chronic kidney disease, or unspecified chronic kidney disease; F17.210 Nicotine dependence, cigarettes, uncomplicated; F12.90 Cannabis use, unspecified, uncomplicated; J44.9 Chronic obstructive pulmonary disease, unspecified; K21.9 Gastro-esophageal reflux disease without esophagitis; M19.91 Primary osteoarthritis, unspecified site; M06.9 Rheumatoid arthritis, unspecified; F60.9 Personality disorder, unspecified; Z79.4 Long term (current) use of insulin; Z95.820 Peripheral vascular angioplasty status with implants and grafts; Z90.710 Acquired absence of both cervix and uterus; Z90.89 Acquired absence of other organs; Z87.01 Personal history of pneumonia (recurrent); Z86.718 Personal history of other venous thrombosis and embolism
CPT/HCPCS: 36415; 80048; 80053; 80306; 81000; 82010; 82805; 82947; 82962; 83036; 83690; 83735; 84100; 85007; 85025; 85027; 87081; 96361; 96365; 96375; 99291

== ENCOUNTER 2020-05-16 16:31 | Inpatient (IN) | payer MEDICAID ==
[~2020-05-16] VITALS: Ht 167 cm; Wt 98.9 kg
[~2020-05-16 16:31] MED LIST changes: +ASCO10006 PO; +CHOL100045 PO; +DICL100G31 TOP; +DICY10CA12 PO; +FLUT9.9S NSEACH; +FURO40TA4 PO; +GABA-486 PO; +INSU100I29 SC; +LORA-405 PO; +MELA10TA2 PO; +NALO4SPR NS; +OMEP20CA18 PO; +OXYC5TAB96 PO
--- NOTE | 2020-05-16 16:39 | ED General ---
General Stated Complaint: SOB,CP Source of Information: Patient Exam Limitations: No Limitations History of Present Illness Date Seen by Provider: May 16, 2020 Time Seen by Provider: 18:00 Initial Comments To ER with reports of sharp right-sided chest pain worsened with movement and deep breathing as well as a fever up to 102. Recently admitted here for DKA. Timing/Duration: 2-3 Days Severity: Moderate Associated Systoms: Chest Pain, Cough Allergies and Home Medications Allergies Coded Allergies: Sulfa (Sulfonamide Antibiotics) (Unverified Allergy, Unknown, 05/11/15) codeine (Verified Allergy, Unknown, TAKES ULTRAM AT HOME, 11/18/08) ketorolac (Verified Allergy, Unknown, 10/05/08) tramadol (Verified Allergy, Unknown, 11/02/11) Home Medications Albuterol Sulfate 1 Puff Puff, 2 PUFF IH TID PRN for SHORTNESS OF BREATH, (Reported) Ascorbic Acid 1,000 Mg Tablet, 1,000 MG PO DAILY, (Reported) Cholecalciferol (Vitamin D3) 25 Mcg Tablet, 25 MCG PO BID, (Reported) Diclofenac Sodium 100 Gm Gel..gram., 1 APPLIC TOP QID PRN for CRAMPS, (Reported) APPLY TO LEGS Fluticasone Propionate 9.9 Ml [place].susp, 2 SPRAY NSEACH DAILY, (Reported) 1 SPRAY EACH NARE DAILY Furosemide 40 Mg Tablet, 40 MG PO DAILY, (Reported) Gabapentin 100 Mg Capsule, 100 MG PO TID, (Reported) Insulin Detemir 100 Unit/1 Ml Insuln.pen, 22 UNITS SC HS, (Reported) Insulin Lispro 100 Unit/1 Ml Insuln.pen, 5-15 UNITS SQ TIDWM, (Reported) Melatonin 10 Mg Tablet, 10 MG PO HS, (Reported) Metoclopramide HCl 10 Mg Tablet, 10 MG PO QIDACHS, (Reported) Metoprolol Tartrate 50 Mg Tablet, 50 MG PO BID, (Reported) Montelukast Sodium 10 Mg Tablet, 10 MG PO HS, (Reported) LAST FILLED 11-23-2019 #15 Naloxone HCl 4 Mg [place], 1 SPRAY NS UD PRN for UNRESPONSIVE, (Reported) ADMINSTER 1 SPRAY IN 1 NOSTRIL 1 TIME- MAY REPEAT IN ALTERNATING NOSTRIL EVERY 2-3 MINUTES UNTIL RESPONSIVE OR EMS ARRIVES Omeprazole 20 Mg Capsule.dr, 20 MG PO DAILY, (Reported) Oxycodone HCl 5 Mg Tablet, 5 MG PO DAILY PRN for PAIN-SEVERE (8-10) Prescribed by: TRUDI SERRANO on 05/07/20 1042 Potassium Gluconate 99 Mg Tablet, 99 MG PO DAILY, (Reported) Patient Home Medication List Home Medication List Reviewed: Yes Review of Systems Review of Systems Constitutional: see HPI, fever EENTM: see HPI Respiratory: see HPI, cough Cardiovascular: see HPI, chest pain Genitourinary: no symptoms reported Musculoskeletal: no symptoms reported Skin: no symptoms reported Psychiatric/Neurological: No Symptoms Reported Hematologic/Lymphatic: No Symptoms Reported Immunological/Allergic: no symptoms reported Past Ruobjvy-Tylgss-Bokebd Hx Patient Social History Drug of Choice: THC Type Used: Cigarettes 2nd Hand Smoke Exposure: No Recent Hopitalizations: No Immunizations Up To Date Tetanus Booster (TDap): Unknown Date of Pneumonia Vaccine: Aug 17, 2012 Date of Influenza Vaccine: Aug 17, 2012 Seasonal Allergies Seasonal Allergies: No Past Medical History Surgeries: Yes (renal stents) Adenoidectomy, Ear Surgery, Hysterectomy, Tonsillectomy Respiratory: Yes Asthma, Pneumonia, Chronic Bronchitis Cardiac: Yes Deep Vein Thrombosis Neurological: Yes Neuropathy Reproductive Disorders: Yes Female Reproductive Disorders: Menstrual Problems Genitourinary: Yes Renal Failure Gastrointestinal: Yes (gastroparesis) Gastroesophageal Reflux, Pancreatitis, Ulcer Musculoskeletal: Yes Arthritis, Rheumatoid Arthritis, Fractures Endocrine: Yes Diabetes, Insulin dep HEENT: No Tonsilitis Loss of Vision: Denies Hearing Impairment: Denies Cancer: No Psychosocial: Yes Personality Disorder Integumentary: No Blood Disorders: No Adverse Reaction/Blood Tranf: No Family Medical History FH: thyroid cancer G8 SISTER FHx: macular degeneration 19 MOTHER Glaucoma G8 BROTHER Heart Disease, Cancer, Diabetes Physical Exam Vital Signs Vital Signs - First Documented Capillary Refill : Height, Weight, BMI Height: 5'5.00" Weight: 151lbs. 1.0oz. 68.256379vv; 26.63 BMI Method:Stated General Appearance: No Apparent Distress, WD/WN, Chronically ill (appeared much older than stated age), Thin Eyes: Bilateral Eye Normal Inspection, Bilateral Eye PERRL, Bilateral Eye EOMI Neck: Full Range of Motion, Normal Inspection Respiratory: Normal Breath Sounds, No Accessory Muscle Use, No Respiratory Distress Cardiovascular: Regular Rate, Rhythm, Normal Peripheral Pulses Gastrointestinal: Normal Bowel Sounds, Non Tender, Soft Extremity: Normal Capillary Refill, Normal Inspection Neurologic/Psychiatric: Alert, Oriented x3 Skin: Normal Color, Warm/Dry Focused Exam Lactate Level 05/16/20 17:26: Lactic Acid Level 0.89 Lactic Acid Level Laboratory Tests Test 05/16/20 17:26 Lactic Acid Level 0.89 MMOL/L (0.50-2.00) Procedures/Interventions Date of ETT Placement: Dec 27, 2019 Time of ETT Placement: 311 Progress/Results/Core Measures Suspected Sepsis SIRS Temperature: Pulse: Respiratory Rate: Laboratory Tests 05/16/20 16:45: White Blood Count 22.3H Blood Pressure / Mean: 05/16/20 17:26: Lactic Acid Level 0.89 Laboratory Tests 05/16/20 16:45: Creatinine 2.11H, INR Comment 1.0, Platelet Count 304, Total Bilirubin 0.6 Results/Orders Lab Results Laboratory Tests Test 05/16/20 16:45 05/16/20 17:10 05/16/20 17:26 05/16/20 18:06 Range/Units White Blood Count 22.3 H 4.3-11.0 10^3/uL Red Blood Count 3.75 L 4.35-5.85 10^6/uL Hemoglobin 11.4 L 11.5-16.0 G/DL Hematocrit 34 L 35-52 % Mean Corpuscular Volume 91 80-99 FL Mean Corpuscular Hemoglobin 30 25-34 PG Mean Corpuscular Hemoglobin Concent 33 32-36 G/DL Red Cell Distribution Width 13.5 10.0-14.5 % Platelet Count 304 130-400 10^3/uL Mean Platelet Volume 9.4 7.4-10.4 FL Neutrophils (%) (Auto) 78 H 42-75 % Lymphocytes (%) (Auto) 14 12-44 % Monocytes (%) (Auto) 8 0-12 % Eosinophils (%) (Auto) 0 0-10 % Basophils (%) (Auto) 0 0-10 % Neutrophils # (Auto) 17.5 H 1.8-7.8 X 10^3 Lymphocytes # (Auto) 3.1 1.0-4.0 X 10^3 Monocytes # (Auto) 1.7 H 0.0-1.0 X 10^3 Eosinophils # (Auto) 0.0 0.0-0.3 10^3/uL Basophils # (Auto) 0.0 0.0-0.1 10^3/uL Neutrophils % (Manual) 72 % Lymphocytes % (Manual) 14 % Monocytes % (Manual) 7 % Eosinophils % (Manual) 1 % Basophils % (Manual) 1 % Band Neutrophils 5 % Prothrombin Time 13.3 12.2-14.7 SEC INR Comment 1.0 0.8-1.4 Activated Partial Thromboplast Time 29 24-35 SEC D-Dimer 3.76 H 0.00-0.49 UG/ML Sodium Level 126 L 135-145 MMOL/L Potassium Level 4.4 3.6-5.0 MMOL/L Chloride Level 92 L 98-107 MMOL/L Carbon Dioxide Level 22 21-32 MMOL/L Anion Gap 12 5-14 MMOL/L Blood Urea Nitrogen 37 H 7-18 MG/DL Creatinine 2.11 H 0.60-1.30 MG/DL Estimat Glomerular Filtration Rate 24 BUN/Creatinine Ratio 18 Glucose Level 299 H 70-105 MG/DL Calcium Level 9.1 8.5-10.1 MG/DL Corrected Calcium 9.7 8.5-10.1 MG/DL Magnesium Level 1.7 1.6-2.4 MG/DL Total Bilirubin 0.6 0.1-1.0 MG/DL Aspartate Amino Transf (AST/SGOT) 16 5-34 U/L Alanine Aminotransferase (ALT/SGPT) 22 0-55 U/L Alkaline Phosphatase 99 40-136 U/L Myoglobin 42.2 10.0-92.0 NG/ML Troponin I < 0.028 <0.028 NG/ML B-Type Natriuretic Peptide 347.3 H <100.0 PG/ML Total Protein 7.7 6.4-8.2 GM/DL Albumin 3.3 3.2-4.5 GM/DL Beta-Hydroxybutyrate (Chem panel) 0.63 H 0.00-0.27 MMOL/L Lactic Acid Level 0.89 0.50-2.00 MMOL/L Urine Color YELLOW Urine Clarity CLEAR Urine pH 6.0 5-9 Urine Specific [place] 1.020 1.016-1.022 Urine Protein 3+ H NEGATIVE Urine Glucose (UA) 3+ H NEGATIVE Urine Ketones NEGATIVE NEGATIVE Urine Nitrite NEGATIVE NEGATIVE Urine Bilirubin NEGATIVE NEGATIVE Urine Urobilinogen 0.2 < = 1.0 MG/DL Urine Leukocyte Esterase NEGATIVE NEGATIVE Urine RBC (Auto) 2+ H NEGATIVE Urine RBC 2-5 H /HPF Urine WBC 0-2 /HPF Urine Squamous Epithelial Cells RARE /HPF Urine Crystals NONE /LPF Urine Bacteria TRACE /HPF Urine Casts NONE /LPF Urine Mucus NEGATIVE /LPF Urine Culture Indicated NO Urine Opiates Screen NEGATIVE NEGATIVE Urine Oxycodone Screen NEGATIVE NEGATIVE Urine Methadone Screen NEGATIVE NEGATIVE Urine Propoxyphene Screen NEGATIVE NEGATIVE Urine Barbiturates Screen NEGATIVE NEGATIVE Ur Tricyclic Antidepressants Screen NEGATIVE NEGATIVE Urine Phencyclidine Screen NEGATIVE NEGATIVE Urine Amphetamines Screen NEGATIVE NEGATIVE Urine Methamphetamines Screen NEGATIVE NEGATIVE Urine Benzodiazepines Screen POSITIVE H NEGATIVE Urine Cocaine Screen NEGATIVE NEGATIVE Urine Cannabinoids Screen POSITIVE H NEGATIVE My Orders Orders - LIZET MAS APRN Cbc With Automated Diff (05/16/20 16:37) Magnesium (05/16/20 16:37) Chest 1 View, Ap/Pa Only (05/16/20 16:37) Ekg Tracing (05/16/20 16:37) Comprehensive Metabolic Panel (05/16/20 16:37) Myoglobin Serum (05/16/20 16:37) Protime With Inr (05/16/20 16:37) Partial Thromboplastin Time (05/16/20 16:37) O2 (05/16/20 16:37) Monitor-Rhythm Ecg Trace Only (05/16/20 16:37) Lipid Panel (05/17/20 06:00) Ed Iv/Invasive Line Start (05/16/20 16:37) BNP (05/16/20 16:37) Fibrin Degradation Products (05/16/20 16:37) Troponin I (05/16/20 16:37) Aspirin Chewable Tablet (Baby Aspirin Ch (05/16/20 16:45) Beta Hydroxybutyrate (05/16/20 16:38) Acetaminophen Tablet (Tylenol Tablet) (05/16/20 17:00) Ns Iv 1000 Ml (Sodium Chloride 0.9%) (05/16/20 17:00) Coronavirus Sars-Cov-2 So 2018 (05/16/20 16:51) Ua Culture If Indicated (05/16/20 16:52) Drug Screen Stat (Urine) (05/16/20 17:04) Manual Differential (05/16/20 16:45) Blood Culture (05/16/20 17:20) Lactic Acid Analyzer (05/16/20 17:20) Ns Iv 1000 Ml (Sodium Chloride 0.9%) (05/16/20 18:00) Hydrocodone/Apap 5/325 Tablet (Lortab 5 (05/16/20 18:00) Medications Given in ED Current Medications Medications Dose Ordered Sig/Nehemias Route Start Time Stop Time Status Last Admin Dose Admin Acetaminophen/ Hydrocodone Bitart 1 tab ONCE ONCE PO 05/16/20 18:00 05/16/20 18:01 DC 05/16/20 18:08 1 TAB Aspirin 324 mg ONCE ONCE PO 05/16/20 16:45 05/16/20 16:46 DC 05/16/20 17:00 324 MG Vital Signs/I&O 05/16/20 05/16/20 05/16/20 05/16/20 16:31 16:31 16:31 18:11 Temp 39.6 38.1 Pulse 118 109 Resp 24 18 B/P (MAP) 179/92 (121) 129/76 (93) Pulse Ox 89 94 96 O2 Delivery Room Air Nasal Cannula Nasal Cannula Nasal Cannula O2 Flow Rate 2.0 2.00 2.00 05/16/20 18:33 Temp 38.4 Capillary Refill : Diagnostic Imaging Diagonstic Imaging: Xray Plain Films/CT/US/NM/MRI: chest Comments NAME: LAURENCE PLEITEZ MED REC#: [id number] PT STATUS: REG ER : 1965 PHYSICIAN: LIZET MAS APRN ADMIT DATE: 05/16/20/ER Draft Date of Exam:05/16/20 CHEST 1 VIEW, AP/PA ONLY INDICATION: Chest pain. TIME OF EXAM: 5:11 PM CORRELATION is made with prior chest from 12/30/2019. FINDINGS: Heart size is stable. There is central congestion. Interstitial changes throughout both lungs are noted however significantly improved from the exam from December. No parenchymal consolidation or effusion is seen. There is no pneumothorax. IMPRESSION: 1. Central congestion and mild interstitial changes. The appearance of the chest has improved since the prior radiograph from 12/30/2019. Dictated on workstation # [id number] Dict: 05/16/20 172 Trans: 05/16/20 172 [facility] [id number] Interpreted by: VIRAL JIM MD Electronically signed by: Departure Communication (Admissions) Time/Spoke to Admitting Phy: 18:[address] Ricketts, we'll admit, use renal dosed Lovenox for the elevated d- dimer with pleuritic chest pain. Will use Zosyn plus vancomycin for suspected right-sided pneumonia that will fluff out with some fluids. Patient complains of severe pain, states that she takes oxycodone immediate release 5 mg tablet once a day for pain and she would like to continue that upstairs. She is upset that I only offered her [place] for pain control. She refused Tylenol because she states it will harm her kidneys. I discussed with her that it will not and would be beneficial to lower her temperature with Tylenol. She states her kidney doctor told her to never take it. Impression Primary Impression: Acute kidney injury superimposed on chronic kidney disease Additional Impressions: Leukocytosis Insulin dependent diabetes mellitus Chest wall pain Disposition: ADMITTED INPATIENT Condition: Stable Admissions Decision to Admit Reason: Admit from ER (General) Decision to Admit/Date: May 16, 2020 Time/Decision to Admit Time: 18:46 Departure-Patient Inst. Referrals: NO,LOCAL PHYSICIAN (PCP/Family) Primary Care Physician LIZET MAS APRN May 16, 2020 16:39
[2020-05-16] MEDS ORDERED: ASPIRIN 81 MG CHEW (CHILDREN'S ASA) PO ONE (16:45)
[2020-05-16] MEDS ORDERED: ACETAMINOPHEN 500 MG TAB (TYLENOL) PO ONE (17:00)
[2020-05-16] MEDS ORDERED: NS IV 1000 ML 1,000 ML IV SCH ×2 (17:00→18:00)
--- NOTE | 2020-05-16 17:00 | NUR ---
PATIENT REFUSED TYLENOL AND STATES "I CAN'T TAKE TYLENOL BECAUSE IT HURTS MY KIDNEYS BUT I DO NEED PAIN MEDICATION". RN EXPLAINS TO PATIENT THAT THE TYLENOL WILL HELP WITH PAIN AND FEVER DUE TO PATIENT HAVING FEVER OF 103 BUT PATIENT CONTINUES TO REFUSE THE TYLENOL.
[2020-05-16 17:04] LABS: BASOPHILS % (AUTO) 0 % (0-10); EOSINOPHILS % (AUTO) 0 % (0-10); HEMATOCRIT 34 % (35-52); HEMOGLOBIN 11.4 G/DL (11.5-16.0); LYMPHOCYTES # (AUTO) 3.1 X 10^3 (1.0-4.0); LYMPHOCYTES % (AUTO) 14 % (12-44); MEAN CORPUSCULAR HEMOGLOBIN 30 PG (25-34); MEAN CORPUSCULAR HGB CONC 33 G/DL (32-36); MEAN CORPUSCULAR VOLUME 91 FL (80-99); MEAN PLATELET VOLUME 9.4 FL (7.4-10.4); MONOCYTES # (AUTO) 1.7 X 10^3 (0.0-1.0); MONOCYTES % (AUTO) 8 % (0-12); NEUTROPHILS # (AUTO) 17.5 X 10^3 (1.8-7.8); NEUTROPHILS % (AUTO) 78 % (42-75); PLATELET COUNT 304 10^3/uL (130-400); RED CELL DISTRIBUTION WIDTH 13.5 % (10.0-14.5); WHITE BLOOD COUNT 22.3 10^3/uL (4.3-11.0)
[2020-05-16 17:09] LABS: ALBUMIN 3.3 GM/DL (3.2-4.5); POTASSIUM 4.4 MMOL/L (3.6-5.0)
[2020-05-16 17:10] LABS: CALCIUM 9.1 MG/DL (8.5-10.1)
[2020-05-16 17:11] LABS: TOTAL PROTEIN 7.7 GM/DL (6.4-8.2)
[2020-05-16 17:13] LABS: BILIRUBIN,TOTAL 0.6 MG/DL (0.1-1.0)
[2020-05-16 17:15] LABS: CREATININE SERUM 2.11 MG/DL (0.60-1.30)
--- NOTE | 2020-05-16 17:16 | NUR ---
COVID SWAB OBTAINED AND SENT TO LAB.
[2020-05-16 17:17] LABS: MAGNESIUM 1.7 MG/DL (1.6-2.4)
[2020-05-16 17:18] LABS: PROTHROMBIN TIME PATIENT 13.3 SEC (12.2-14.7)
[2020-05-16 17:26] LABS: BAND NEUTROPHILS 5 %; BASOPHILS % (MANUAL) 1 %; EOSINOPHILS % (MANUAL) 1 %; LYMPHOCYTES % (MANUAL) 14 %; MONOCYTES % (MANUAL) 7 %; NEUTROPHILS % (MANUAL) 72 %
--- NOTE | 2020-05-16 17:29 | Diagnostic Imaging Report ---
INDICATION: Chest pain. TIME OF EXAM: 5:11 PM CORRELATION is made with prior chest from 12/30/2019. FINDINGS: Heart size is stable. There is central congestion. Interstitial changes throughout both lungs are noted however significantly improved from the exam from December. No parenchymal consolidation or effusion is seen. There is no pneumothorax. IMPRESSION: 1. Central congestion and mild interstitial changes. The appearance of the chest has improved since the prior radiograph from 12/30/2019. Dictated by: Dictated on workstation # [id number]
[2020-05-16] MEDS ORDERED: HYDROcodone/APAP 5 MG/325 MG (LORTAB) TAB PO ONE (18:00)
--- NOTE | 2020-05-16 18:10 | NUR ---
PATIENT TOOK HYDROCODONE/APAP WITHOUT ANY DIFFICULTY. SHE STATES SHE HAS OXYCODONE WHICH WORKS BETTER BUT WILL TAKE THE HYDROCODONE/APAP DUE TO PAIN 10 OUT OF 10.
[2020-05-16 18:11] VITALS: BP 129/76
[2020-05-16 18:14] LABS: BILIRUBIN,URINE NEGATIVE (NEGATIVE); CLARITY,URINE CLEAR; COLOR,URINE YELLOW; GLUCOSE, URINE (UA) 3+ (NEGATIVE); KETONES,URINE NEGATIVE (NEGATIVE); LEUKOCYTE ESTERASE ,URINE NEGATIVE (NEGATIVE); NITRITE,URINE NEGATIVE (NEGATIVE); PROTEIN,URINE 3+ (NEGATIVE)
[2020-05-16 18:23] LABS: BACTERIA,URINE TRACE /HPF; SQUAMOUS EPITHELIAL CELL,UR RARE /HPF; WBC,URINE 0-2 /HPF
[2020-05-16 18:25] LABS: AMPHETAMINE SCREEN, URINE NEGATIVE (NEGATIVE); BARBITURATE SCREEN URINE NEGATIVE (NEGATIVE); BENZODIAZEPINES SCREEN URINE POSITIVE (NEGATIVE); CANNABINOID SCREEN, URINE POSITIVE (NEGATIVE); COCAINE SCREEN URINE NEGATIVE (NEGATIVE); METHADONE STAT NEGATIVE (NEGATIVE); METHAMPHETAMINE SCREEN URINE S NEGATIVE (NEGATIVE); OPIATE SCREEN URINE NEGATIVE (NEGATIVE); OXYCODONE STAT NEGATIVE (NEGATIVE); PROPOXYPHENE STAT NEGATIVE (NEGATIVE); TRICYCLIC ANTIDEPRESSANTS SCRE NEGATIVE (NEGATIVE)
--- NOTE | 2020-05-16 18:29 | NUR ---
PATIENT CRYING STATING PAIN IS A 10 OUT OF 10. LIZET MAS MELON PACKER IN ROOM.
--- OUTSIDE RECORDS SUMMARY | 2020-05-16 18:33 | XMS REPORT ---
Author Author [employer] [facility] [employer] [facility] Address [address] [place] [address] Care Team Providers Care Lead Customer Service Representative Name Role Phone KARY ROWE Unavailable julianBAKARI Valente Unavailable XIAO BLUNT, JAVY Thibodeaux Unavailable Unavailable MAGGIE BLUNT, TRUDI Wong Unavailable Unavailable DONAVON BLUNT, NOEMÍ Wong Unavailable Unavailable DONAVON BLUNT, NOEMÍ Wong Unavailable Unavailable LAURENCE MERAZ DO Unavailable Unavailable LIZET MAS APRN Unavailable Unavailable CATRACHO BLUNT, AICHA Trevino Unavailable Unavailable Unavailable Unavailable Unavailable Unavailable Allergies No Information Medications No Information Problems Active Problems Problem Normalized Date Last Normalized Normalized Provider Fa cility Classification Problem(s) Recorded Problem Problem Sta tus Duration Other liver Abnormal Episodic Active KARY Not Availab le diseases (3 levels of GELLENDER , DO (54862) sources.) other serum enzymes Residual Acquired Episodic Active LIZET MAS Not Availab le codes; absence of (49437) unclassified both cervix (4 sources.) and uterus Residual Acquired Episodic Active PITER OLSON Via codes; absence of CINTHYA Jane unclassified other organs Hospital - (1 source.) [place] ([address]) Acute and Acute kidney Episodic Active KARY Not Avail able unspecified failure, GELLENDER , DO (67060) renal failure unspecified (16 sources.) Translations: [ ACUTE KIDNEY FAILURE WITH TUBULAR NECROS, ACUTE KIDNEY FAILURE, UNSPECIFIED] Respiratory Acute Episodic Active PITER HERRERA Vi a failure; respiratory MD Jane insufficiency; failure, Hospital - arrest (adult) unspecified [place] (6 sources.) whether with (80134) hypoxia or hypercapnia Allergic Allergy status Episodic Active VC Melania PIERRE Via reactions (8 to narcotic MD Jane sources.) agent status Hospital - Translations: [place] [ ALLERGY (09314) STATUS TO SULFONAMIDES STATUS, ALLERGY STATUS TO NARCOTIC AGENT STATUS] Deficiency and Anemia, Episodic Active NOEMÍ DONAVON , [facility] Via other anemia unspecified MD Jane (6 sources.) Hospital [facility] (09711) Personality Borderline Chronic Active KARY Not Avail able disorders (17 personality DO SOLEDAD (73583) sources.) disorder Translations: [ PERSONALITY DISORDER, UNSPECIFIED] Chronic kidney Chronic kidney Chronic Active AHMED No t Available disease (22 disease, stage ABOUL-MAGD , (51717) sources.) 3 (moderate) MD Translations: [ CHRONIC KIDNEY DISEASE, STAGE II (MILD), CHRONIC KIDNEY DISEASE, UNSPECIFIED, CHRONIC KIDNEY DISEASE, STAGE III (MODER, CHRONIC KIDNEY DISEASE, STAGE 2 (MILD)] Chronic Chronic Chronic Active NOEMÍ DONAVON , [facility] Via obstructive obstructive MD Jane pulmonary pulmonary [facility] and [facility] bronchiectasis unspecified (16300) (14 sources.) Diabetes Diabetes Chronic Active MEICHELLE WOOD Not Avai lable mellitus mellitus (61917) without without complication mention of (11 sources.) complication, type I [juvenile type], not stated as uncontrolled Translations: [ TYPE 2 DIABETES MELLITUS WITHOUT COMPLIC] Diabetes Diabetes with Chronic Active NATALIIA Not Avai lable mellitus with other DO GEORGE (47452) complications specified (21 sources.) manifestations , type [...] N, TYPE 2 DIABETES MELLITUS 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, DIAB W NEURO MANIFEST, TYPE I [JUVENILE [...] KARY Not Av ailable (3 sources.) identity GELGURWINDER , DO (40653) disorder Diseases of Elevated white Chronic Active NOEMÍ DONAVON , [facility] Via white blood blood cell MD Jane cells (7 count, Hospital - sources.) unspecified [place] ([address]) Esophageal Esophageal Chronic Active KARY Not Availa ble disorders (21 reflux GELLENDER , DO (26389) sources.) Translations: [ GASTRO-ESOPHAG EAL REFLUX DISEASE WITHOUT] Residual Family history Episodic Active LIZET MAS Not A vailable codes; of ischemic (01200) unclassified heart disease (3 sources.) and other diseases of the circulatory system Residual Family history Episodic Active LIZET MAS [facility] Via codes; of [facility] [place] un[facility] neoplasm of Hospital - (1 source.) other organs [place] or systems (95898) Gastrointestin Gastrointestin Episodic Active NOEMÍ RAPHAEL [facility] Via al hemorrhage al hemorrhage, MD Jane (3 sources.) unspecified Hospital - [place] (78785) Other Gastroparesis Episodic Active LIZET MAS [facility] Via disorders of LIFE INSURANCE AGENT [place] stomach and Hospital - duodenum (1 [place] source.) (27910) Other injuries History of Episodic Active NOEMÍ RAPHAEL , [facility] Via and conditions falling MD Jane due to Hospital - external [place] causes (6 (13499) sources.) Diabetes Hyperglycemia, Episodic Active KARY Not Ursula ilable mellitus unspecified GELLENDER , DO (28986) without complication (3 sources.) Disorders of Hyperlipidemia Chronic Active AHMED Not Available lipid , unspecified ABOUL-MAGD , (52163) metabolism (21 Translations: MD sources.) [ HYPERLIPIDEMIA NEC/NOS] Hypertension Hypertensive Chronic Active MEICHELLE WOOD N ot Available with chronic kidney (19541) complications disease with and secondary stage 1 hypertension through stage (16 sources.) 4 chronic kidney disease, or unspecified chronic kidney disease Translations: [ HYPTNSV CHR KID DIS, BENIGN, W CHR KD ST] Other Hypotension, Episodic Active NOEMÍ RAPHAEL [facility] Via circulatory unspecified MD Jane disease (6 Hospital - sources.) [place] ([address]01) Other Hypotension, Episodic Active KARY Not Avail able circulatory unspecified GELLENDER , DO (48163) disease (3 sources.) Shock (6 Hypovolemic Episodic Active NOEMÍ RAPHAEL [facility] V ia sources.) shock MD Jane [facility] (74720) 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 Episodic Active LIZET MAS Not Availa ble aftercare (4 (current) use (96353) sources.) of anticoagulants Other long-term Episodic Active LIZET MAS Not Availa ble aftercare (18 (current) use (68908) sources.) of insulin Other Long-term Episodic Active KARY Not Availabl e aftercare (3 (current) use GELLENDER , DO (39746) sources.) of insulin Nonmalignant Lump or mass Episodic Active KARY Not Av ailable breast in breast GELLENDER , DO (45645) conditions (3 sources.) Headache; Migraine, Chronic Active SUZETTE Not Availabl e including unspecified, MD KUMAR (12115) migraine (2 without sources.) mention of intractable migraine without mention of status migrainosus Nephritis; Nephritis and Chronic Active MEICHELLE WOOD No t Available nephrosis; nephropathy, (90635) renal not specified sclerosis (10 as acute or sources.) chronic, in diseases classified elsewhere Other Other Episodic Active KARY Not Available connective calcification GELLENDER , DO (21915) tissue disease of muscle, (2 sources.) other site Other nervous Other chronic Chronic Active TRUDI SERRANO [facility] Via system pain MD Jane disorders (3 Hospital - sources.) [place] (52900) Other nervous Other Chronic Active NOEMÍ RAPHAEL [facility] Via system encephalopathy MD Jane disorders (6 Hospital - sources.) [place] (31121) Other Other long Episodic Active AHMED Not Availab le aftercare (3 term (current) ABOUL-MAGD , (72623) sources.) drug therapy Unclassified Other Episodic Active KARY Not Availa ble (7 sources.) screening GELGURWINDER , DO (30719) mammogram Translations: [ ABNORMAL RESULTS OF LIVER FUNCTION STUDI] Other upper Other seasonal Chronic Active NOEMÍ RAPHAEL [facility] Via respiratory allergic MD Jane disease (7 rhinitis Hospital - sources.) [place] ([address]) Other Pain in left Episodic Active KARY Not Avail able non-traumatic elbow GELLENDER , DO (66703) joint disorders (2 sources.) Other Personal Episodic Active NOEMÍ RAPHAEL [facility] Via circulatory history of MD Jane disease (3 other diseases Hospital - sources.) of the [place] circulatory (85452) system Gastroduodenal Personal Episodic Active NOEMÍ RAPHAEL [facility] Via ulcer (except history of MD Jane hemorrhage) peptic ulcer Hospital - (13 sources.) disease [place] (13783) Other lower Personal Episodic Active LIZET MAS Not Avail able respiratory history of (63416) disease (5 pneumonia sources.) (recurrent) Phlebitis; Personal Episodic Active KARY Not Availabl e thrombophlebit history of GELLENDER , DO (40694) is and venous thromboembolis thrombosis and m (20 embolism sources.) Translations: [ ACUTE VENOUS EMBOLISM THROMBOSIS UNSP , PERSONAL HISTORY OF OTHER VENOUS THROMBO] Pneumonia Pneumonia due Episodic Active PITER HERRERA Via (except that to MD Jane caused by Streptococcus Hospital - tuberculosis pneumoniae [place] or sexually Translations: (54057) transmitted [ PULMONARY disease) (2 CANDIDIASIS] sources.) Poisoning by Poisoning by Episodic Active KARY Not Av ailable psychotropic benzodiazepine GELLENDER , DO (66078) agents (3 -based sources.) tranquilizers Poisoning by Poisoning by Episodic Active KARY Not Av ailable other other opiates GELLENDER , DO (66478) medications and related and drugs (3 narcotics sources.) Other Presence of Chronic Active PITER HERRERA V ia circulatory other vascular MD Jane disease (7 implants and Hospital - sources.) grafts [place] (53820) Genitourinary Presence of Chronic Active NOEMÍ RAPHAEL [facility] Via symptoms and urogenital MD Jane ill-defined implants Hospital - conditions (3 [place] sources.) (79504) Genitourinary Proteinuria, Episodic Active MEICHELLE WOOD Not Available symptoms and unspecified (74843) ill-defined Translations: conditions (20 [ PROTEINURIA] sources.) Rheumatoid Rheumatoid Chronic Active KARY Not Availa ble arthritis and arthritis GELLENDER , DO (42297) related Translations: disease (21 [ RHEUMATOID sources.) ARTHRITIS, UNSPECIFIED] Abdominal pain Right lower Episodic Active LIZET MAS Not Available (5 sources.) quadrant pain (83692) Septicemia Sepsis, Episodic Active PITER HERRERA Via (except in unspecified MD Jane labor) (4 organism Hospital - sources.) Translations: [place] [ SEVERE (56712) SEPSIS WITHOUT SEPTIC SHOCK] Cardiac Tachycardia, Episodic Active NOEMÍ RAPHAEL [facility] Via dysrhythmias unspecified MD Jane (6 sources.) Hospital - [place] (02038) Asthma (5 Unspecified Chronic Active KARY Not Availa ble sources.) asthma, GELLENDER , DO (78989) uncomplicated Translations: [ ASTHMA, UNSPECIFIED] Essential Unspecified Chronic Active KARY Not Availa ble hypertension essential GELLENDER , DO (74014) (1 source.) hypertension Osteoarthritis Unspecified Chronic Active LIZET MAS Not Available (17 sources.) osteoarthritis (85829) , unspecified site Translations: [ PRIMARY OSTEOARTHRITIS , UNSPECIFIED SITE] Past or Other Problems Problem Normalized Date Last Normalized Normalized Provider Fa cility Classification Problem(s) Recorded Problem Problem Sta tus Duration External Accidental no information no information KARY N ot Available Injury - poisoning by GELLENDER , DO (31512) Poisoning (5 other opiates sources.) and related narcotics Translations: [ ACC POISN-BENZDIAZ TRANQ] Pancreatic Acute Episodic Completed KARY Not Availabl e disorders (not pancreatitis GELLENDER , DO (09356) diabetes) (1 source.) Spondylosis; Dorsalgia, Episodic Completed NOEMÍ RAPHAEL [facility] Via intervertebral unspecified MD Jane disc Hospital - disorders; [place] other back (82809) problems (7 sources.) Other Gastroparesis Episodic Completed KARY Not Avai lable disorders of GELLENDER , DO (49131) stomach and duodenum (1 source.) External Home accidents no information no information KARY Not Available Injury - Place GELLENDER , DO (39739) of occurrence (3 sources.) Noninfectious Other and Episodic Completed KARY Not Avai lable gastroenteriti unspecified GELLENDER , DO (84711) s (1 source.) noninfectious gastroenteriti s and colitis Nonspecific Other chest Episodic Completed PITER PIERRE Via chest pain (3 pain MD Jane sources.) [facility] (75111) Residual Patient's Episodic Completed PITER HERRERA Via codes; ilene Jane unclassified noncompliance Hospital - (7 sources.) with [place] medication (51880) regimen Other Personal Episodic Completed LIZET MAS Not Availab le gastrointestin history of (92276) al disorders other diseases (11 sources.) of the digestive system Nausea and Vomiting, no information no information PITER PIERRE Via vomiting (3 unspecified MD Jane sources.) [facility] () Procedures Procedure Normalized Procedure Procedure Result Performer Facility Date 12-27-2019 INSERTION OF no information no name [facility] Via risti ENDOTRACHEAL AIRWAY [facility] INTO TR (73615) 12-27-2019 RESPIRATORY no information no name [facility] VENTILATION, 24-96 [facility] CONSECUTI (71764) 12-27-2019 RESPIRATORY no information no name [facility] VENTILATION, LESS THAN [facility] [address] [place] ([address]) Immunizations The data below is from unstructured sources No Known Immunizations Results Test Name Value Interpretation Reference Range Date Time Fa cility (Normalized) (Normalized) (Medline Reference) laboratory on 2020-05-16 Albumin 3.3 g/dL (NEG) 3.4 - 5.4 g/dL 05-16-2020 PENDING LOCATION [Mass/Vol] 12:45-0400 [facility] (81146) ALP [Catalytic 99 U/L (NEG) 44 - 147 U/L 05-16-2020 PEND ING LOCATION activity/Vol] 12:45-0400 [facility] (13178) ALT [Catalytic 22 U/L (NEG) 4 - 40 U/L 05-16-2020 PENDIN G LOCATION activity/Vol] 12:45-0400 [facility] (57238) Anion gap 12 mmol/L (NEG) 3 - 11 mmol/L 05-16-2020 PENDING LOCATION [Moles/Vol] 12:45-0400 [facility] (29460) aPTT Coag (PPP) 29 s (NEG) 25 - 35 s 05-16-2020 PENDIN G LOCATION [Time] 12:45-0400 [facility] (94242) AST [Catalytic 16 U/L (NEG) 10 - 34 U/L 05-16-2020 PENDI NG LOCATION activity/Vol] 12:45-0400 [facility] (21260) Band form 5 % (no code) 0 - 3 % 05-16-2020 PENDING LOCA TION neutrophils/100 12:45-0400 [facility] (73810) WBC (Bld) Basophils (Bld) 0.0 10*3/uL (NEG) 0 - 0.3 10*3/uL 05-16-2020 PENDING LOCATION [#/Vol] 12:45-0400 [facility] (26532) Basophils/100 0 % (NEG) 0.5 - 1 % 05-16-2020 PENDING LOCATION WBC (Bld) 12:45-0400 [facility] (69235) Basophils/100 1 % (no code) 0.5 - 1 % 05-16-2020 PENDING LOCATION WBC (Bld) 12:45-0400 [facility] (51782) Beta 0.63 (H) 05-16-2020 PENDING LOCATI ON hydroxybutyrate 12:45-0400 [facility] (68017) [Mass/Vol] Bilirubin 0.6 mg/dL (NEG) 0.1 - 1.2 mg/dL 05-16-2020 PENDIN G LOCATION [Mass/Vol] 12:45-0400 [facility] (92392) Calcium 9.1 mg/dL (NEG) 8.5 - 10.2 mg/dL 05-16-2020 PENDI NG LOCATION [Mass/Vol] 12:45-0400 [facility] (99877) Calcium 9.7 mg/dL (NEG) 8.5 - 10.2 mg/dL 05-16-2020 PENDI NG LOCATION [Mass/Vol] 12:45-0400 [facility] (31483) Chloride 92 mmol/L (L) 95 - 106 mmol/L 05-16-2020 PENDIN G LOCATION [Moles/Vol] 12:45-0400 [facility] (09573) CO2 [Moles/Vol] 22 mmol/L (NEG) 23 - 29 mmol/L 05-16-2020 P ENDING LOCATION 12:45-0400 [facility] (94658) Creatinine 2.11 mg/dL (H) 05-16-2020 PENDING LOCATI ON [Mass/Vol] 12:45-0400 [facility] (45137) Creatinine and 24 (no code) 05-16-2020 PENDING LOC ATION Glomerular 12:45-0400 [facility] (54645) filtration rate.predicted panel - Serum, Plasma or Blood Eosinophils 0.0 10*3/uL (NEG) 0.05 - 0.5 05-16-2020 PENDING LOCATION (Bld) [#/Vol] 10*3/uL 12:45-0400 [facility] (19241) Eosinophils/100 0 % (NEG) 1 - 4 % 05-16-2020 PENDIN G LOCATION WBC (Bld) 12:45-0400 [facility] (91818) Eosinophils/100 1 % (no code) 05-16-2020 PENDING LO CATION WBC (Nose) 12:45-0400 [facility] (82789) Erythrocyte 13.5 % (NEG) 11.6 - 14.6 % 05-16-2020 PENDIN G LOCATION distribution 12:45-0400 [facility] (58841) width (RBC) [Ratio] Fibrin D-dimer 3.76 (H) 05-16-2020 PENDING LOC ATION FEU (PPP) 12:45-0400 [facility] (47695) [Mass/Vol] Glucose 299 mg/dL (H) 60 - 125 mg/dL 05-16-2020 PENDING LOCATION [Mass/Vol] 12:45-0400 [facility] (87391) Hematocrit (Bld) 34 % (L) 36.1 - 50.3 % 05-16-2020 P ENDING LOCATION [Volume 12:45-0400 [facility] (01764) fraction] Hemoglobin (Bld) 11.4 g/dL (L) 12.1 - 17.2 g/dL 05-16-2020 PENDING LOCATION [Mass/Vol] 12:45-0400 [facility] (59286) INR Coag 1.0 (NEG) 05-16-2020 PENDING LOCATI ON (Platelet poor 12:45-0400 [facility] (38830) plasma or blood) [Relative time] Lymphocytes 3.1 10*3/uL (NEG) 0.9 - 2.9 05-16-2020 PENDING LOCATION (Bld) [#/Vol] 10*3/uL 12:45-0400 [facility] (46979) Lymphocytes/100 14 % (no code) 20 - 40 % 05-16-2020 PENDIN G LOCATION WBC (Bld) 12:45-0400 [facility] (13834) Magnesium 1.7 mg/dL (NEG) 1.7 - 2.2 mg/dL 05-16-2020 PENDIN G LOCATION [Mass/Vol] 12:45-0400 [facility] (90074) MCH (RBC) 30 pg (NEG) 27 - 31 pg 05-16-2020 PENDING LOC ATION [Entitic mass] 12:45-0400 [facility] (44349) MCHC (RBC) 33 g/dL (NEG) 32 - 36 g/dL 05-16-2020 PENDING LOCATION [Mass/Vol] 12:45-0400 [facility] (90402) MCV (RBC) 91 (NEG) 05-16-2020 PENDING LOCATI ON [Entitic vol] 12:45-0400 [facility] (72023) Monocytes (Bld) 1.7 10*3/uL (H) 0.3 - 0.9 05-16-2020 PEND ING LOCATION [#/Vol] 10*3/uL 12:45-0400 [facility] (66990) Monocytes/100 8 % (NEG) 2 - 8 % 05-16-2020 PENDING LOCATION WBC (Bld) 12:45-0400 [facility] (12444) Monocytes/100 7 % (no code) 2 - 8 % 05-16-2020 PENDING LOCATION WBC (Bld) 12:45-0400 [facility] (49347) Myoglobin 42.2 ng/mL (NEG) 05-16-2020 PENDING LOCATI ON [Mass/Vol] 12:45-0400 [facility] (75278) Natriuretic 347.3 pg/mL (H) 0 - 100 pg/mL 05-16-2020 PEND ING LOCATION peptide B (Bld) 12:45-0400 [facility] (98017) [Mass/Vol] Neutrophils 17.5 10*3/uL (H) 1.7 - 7 10*3/uL 05-16-2020 P ENDING LOCATION (Bld) [#/Vol] 12:45-0400 [facility] (63677) Neutrophils/100 78 % (H) 40 - 60 % 05-16-2020 PENDIN G LOCATION WBC (Bld) 12:45-0400 [facility] (79861) Platelet mean 9.4 (NEG) 05-16-2020 PENDING LOCA TION volume (Bld) 12:45-0400 [facility] (07877) [Entitic vol] Platelets (Bld) 304 10*3/uL (NEG) 150 - 450 05-16-2020 PEND ING LOCATION [#/Vol] 10*3/uL 12:45-0400 [facility] (54609) Potassium 4.4 mmol/L (NEG) 3.7 - 5.2 mmol/L 05-16-2020 PEND ING LOCATION [Moles/Vol] 12:45-0400 [facility] (91680) Protein 7.7 g/dL (NEG) 6.4 - 8.3 g/dL 05-16-2020 PENDING LOCATION [Mass/Vol] 12:45-0400 [facility] (96242) PT Coag (PPP) 13.3 s (NEG) 9.4 - 12.5 s 05-16-2020 PENDI NG LOCATION [Time] 12:45-0400 [facility] (25580) RBC (Bld) 3.75 10*6/uL (L) 4.2 - 6.1 05-16-2020 PENDING L OCATION [#/Vol] 10*6/uL 12:45-0400 [facility] (09919) Segmented 72 % (no code) 35 - 80 % 05-16-2020 PENDING LOCA TION neutrophils/100 12:45-0400 [facility] (92106) WBC (Bld) Sodium 126 mmol/L (L) 135 - 145 mmol/L 05-16-2020 PEND ING LOCATION [Moles/Vol] 12:45-0400 [facility] (16789) Troponin ng/mL (NEG) 0 - 0.4 ng/mL 05-16-2020 PENDING LOCATION I.cardiac 12:450400 [facility] (15918) [Mass/Vol] Urea nitrogen 37 mg/dL (H) 7 - 20 mg/dL 05-16-2020 PENDI NG LOCATION [Mass/Vol] 12:45-0400 [facility] (57031) Urea 18 mg/mg (no code) 6 - 22 mg/mg 05-16-2020 PENDING L OCATION nitrogen/Creatin 12:45-0400 [facility] (06305) ine [Mass ratio] WBC (Bld) 22.3 10*3/uL (H) 3.5 - 10.5 05-16-2020 PENDING LOCATION [#/Vol] 10*3/uL 12:45-0400 [facility] (91786) Vital Signs The data below is from [...] 0 2015 3:40pm Height (Feet) 5 feet 04/ 3:40pm Height (Inches) 4 inches 2016 3:40pm Height (Calculated Centimeters) 162. 258726 cm 2016 3:40pm Weight (Pounds) 175 pounds 2016 3:40pm Weight (Calculated Kilograms) 79.378 666 kilograms 2016 3:40pm Height 5 ft 4 in Weight 175 lb Body Mass Index 30.0 kg/m^2 Vital Response Date/Time Temperature (Fahrenheit) 97.1 degree s F (97.6 - 99.5) Temperature (Calculated Celsius) 36. 16620 degrees C (36.4 - 37.5) Temperature Source Temporal Pulse Rate (adult) 96 bpm (60 - 90) Respiratory Rate 20 bpm (12 - 24) O2 Sat by Pulse Oximetry 100 % (88 - 100) Blood Pressure 113/74 mm Hg Pain Pain Intensity 0 Height (Feet) 5 feet Height (Inches) 3.00 inches Height (Calculated Centimeters) 160. 519389 cm Weight (Pounds) 188 pounds Weight (Ounces) 0.0 oz Weight (Calculated Grams) 11044.366 gm Weight (Calculated Kilograms) 85.275 366 kilograms Calculated BMI 33.30 Vital Response Date/Time Temperature (Fahrenheit) 97.3 degree s F (97.6 - 99.5) 07/22/2017 7:27pm Temperature (Calculated Celsius) 36. 80286 degrees C (36.4 - 37.5) 07/22/2017 7:27pm [...] inches 07/22/2017 7:27pm Height (Calculated Centimeters) 165. 615441 cm 07/22/2017 7:27pm Height Method Stated 03/2017 [...] See Medication Section Referrals KARY ROWE DO - [facility] Physician Additional Instructions/Education Al l discharge [...] DO Order Date: Primary Care Physician Address: [facility] [place] [phone] Additional Instructions/Education 1. Follow-up with Dr. Dr. [...] department no information AICHA HAYDEN MD (no [facility] patient visit phone) [facility] (no phone) 11-19-2019 Emergency department no information no name no organization name - patient visit 11-19-2019 06-27-2019 Emergency department no information no name no organization name patient visit 03-04-2012 Emergency department no information no name no organization name - patient visit 03-04-2012 12-26-2019 Evaluation and no information NOEMÍ RAPHAEL MD (no [facility] - management of phone) [facility] 01-01-2020 inpatient (no phone) 06-27-2019 Evaluation and [...] (no [facility] - procedure phone) [facility] 01-01-2020 (no phone) 11-19-2019 Patient encounter no [...] Directives No 3:50pm Health Care Power of Pan Greaser No 02/28/16 3:50pm Organ Donor No 02/28/16 3:50pm Resuscitation Status Full Code 02/28/16 3:50pm Directive Response Recor ded Date/Time Advance Directives No 1:07am Health Care Power of Pan Greaser No 05/11/15 1:07am Organ Donor No 05/11/15 1:07am Resuscitation Status Full Code 05/11/15 1:07am Directive Response Recor ded Date/Time Advance Directives No 6:00am Health Care Power of Pan Greaser No 01/01/13 6:00am Organ Donor No 01/01/13 6:00am Directive Response Recor ded Date/Time Advance Directives No 7:27pm Health Care Power of Pan Greaser No 07/22/17 7:27pm Organ Donor No 07/22/17 7:27pm Resuscitation Status Full Code 07/22/17 7:27pm Discharge Instructions No hospital discharge instructions.No hospital discharge instructions.No hospital discharge instructions.No hospital discharge instruction information available. Additional Source Comments This clinical document has been generated using [employer] software that has been certified by the Office of the National Coordinator for Health Information Technology (ONC 15.99.04.3023.Diam.31.00.0.342159) and the National Committee for Electronics Engineer (NCQA, as an eMeasure certified technology). FOR [...] BASED ON T HE PRIMARY CLINICAL RECORDS. [employer]. provides no warranty or guara ntee of [...]
--- OUTSIDE RECORDS SUMMARY | 2020-05-16 18:33 | XMS REPORT | Clinical Summary ---
Author Author [facility] Address Unknown Phone Unavailable Care Team Providers Care Entertainment Musician Name Role Phone PCP Unavailable Allergies Not [...]
--- OUTSIDE RECORDS SUMMARY | 2020-05-16 18:33 | XMS REPORT | Clinical Summary ---
Author Author [facility] Organization [facility] Address Unknown Phone Unavailable Care Team Providers Care Pickle Water Pump Operator Name Role Phone No Pcp, Na PCP Unavailable Source Comments Some departments are not documenting in the electronic medical record. 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
--- OUTSIDE RECORDS SUMMARY | 2020-05-16 18:35 | XMS REPORT | Continuity of Care Document ---
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 04:02 Capillary blood glucose measurement by glucometer (mas s/volume) 45 mg/dL 70-110 Complete blood count (CBC) with automate d white blood cell (WBC) differential - 05/05/20 05:31 Blood leukocytes automated count (number/volume) 8.9 10*3/uL 4.3-11.0 Blood erythrocytes automated count (number/volume) 3.24 10*6/uL 4.35-5.85 Venous blood hemoglobin measurement (mass/volume) 10.0 g/dL 11.5-16.0 Blood hematocrit (volume fraction) 30 % 35-52 Automated erythrocyte mean corpuscular volume 92 [ foz_us] 80-99 Automated erythrocyte mean corpuscular h emoglobin (mass per erythrocyte) 31 pg 25-34 Automated erythrocyte mean corpuscular h emoglobin concentration measurement (mass/volume) 34 g/dL 32-36 Automated erythrocyte distribution width ratio 13. 7 % 10.0- 14.5 Automated blood platelet count (count/volume) 360 10*3/uL 130-400 Automated blood platelet mean volume measurement 9.5 [foz_us] 7.4-10.4 Automated blood neutrophils/100 leukocytes 67 % 42-75 Automated blood lymphocytes/100 leukocytes 25 % 12-44 Blood monocytes/100 leukocytes 6 % 0-12 Automated blood eosinophils/100 leukocytes 3 % 0-10 Automated blood basophils/100 leukocytes 0 % 0-10 Blood neutrophils automated count (number/volume) 5.9 10*3 1.8-7.8 Blood lymphocytes automated count (number/volume) 2.2 10*3 1.0-4.0 Blood monocytes automated count (number/volume) 0. 5 10*3 0.0-1.0 Automated eosinophil count 0.2 10*3/uL 0 .0-0.3 Automated blood basophil count (count/volume) 0.0 10*3/uL 0.0-0.1 Capillary blood glucose measurement by g lucometer (mass/volume) - 05/05/20 05:36 Capillary blood glucose measurement by glucometer (mas s/volume) 126 mg/dL 70-110 Whole blood basic metabolic panel - 04/17 08/06 05:51 Serum or plasma sodium measurement (moles/volume) 137 mmol/L 135-145 Serum or plasma potassium measurement (moles/volume) 4.3 mmol/L 3.6-5.0 Serum or plasma chloride measurement (moles/volume) 108 mmol/L 98-107 Carbon dioxide 17 mmol/L 21-32 Serum or plasma anion gap determination (moles/volume) 12 mmol/L 5-14 Serum or plasma urea nitrogen measurement (mass/volume ) 61 mg/dL 7-18 Serum or plasma creatinine measurement (mass/volume) 2.15 mg/dL 0.60-1.30 Serum or plasma urea nitrogen/creatinine mass ratio 28 NRG Serum or plasma creatinine measurement w ith calculation of estimated glomerular filtration rate 24 NRG Serum or plasma glucose measurement (mass/volume) 110 mg/dL 70-105 Serum or plasma calcium measurement (mass/volume) 8.6 mg/dL 8.5-10.1 Serum or plasma phosphate measurement (m ass/volume) - 05/05/20 05:51 Serum or plasma phosphate measurement (mass/volume) 4.7 mg/dL 2.3-4.7 Magnesium - 05/05/20 05:51 Magnesium 2.2 mg/dL 1.6-2.4 Capillary blood glucose measurement by g lucometer (mass/volume) - 05/05/20 11:07 Capillary blood glucose measurement by glucometer (mas s/volume) 219 mg/dL 70-110 Capillary blood glucose measurement by g lucometer (mass/volume) - 05/05/20 15:56 Capillary blood glucose measurement by glucometer (mas s/volume) 66 mg/dL 70-110 Capillary blood glucose measurement by g lucometer (mass/volume) - 05/05/20 17:10 Capillary blood glucose measurement by glucometer (mas s/volume) 77 mg/dL 70-110 Capillary blood glucose measurement by g lucometer (mass/volume) - 05/05/20 20:17 Capillary blood glucose measurement by glucometer (mas s/volume) 101 mg/dL 70-110 Complete blood count (CBC) with automate d white blood cell (WBC) differential - 05/06/20 05:24 Blood leukocytes automated count (number/volume) 5.0 10*3/uL 4.3-11.0 Blood erythrocytes automated count (number/volume) 3.37 10*6/uL 4.35-5.85 Venous blood hemoglobin measurement (mass/volume) 10.2 g/dL 11.5-16.0 Blood hematocrit (volume fraction) 31 % 35-52 Automated erythrocyte mean corpuscular volume 93 [ foz_us] 80-99 Automated erythrocyte mean corpuscular h emoglobin (mass per erythrocyte) 30 pg 25-34 Automated erythrocyte mean corpuscular h emoglobin concentration measurement (mass/volume) 33 g/dL 32-36 Automated erythrocyte distribution width ratio 13. 8 % 10.0- 14.5 Automated blood platelet count (count/volume) 314 10*3/uL 130-400 Automated blood platelet mean volume measurement 9.2 [foz_us] 7.4-10.4 Automated blood neutrophils/100 leukocytes 52 % 42-75 Automated blood lymphocytes/100 leukocytes 39 % 12-44 Blood monocytes/100 leukocytes 5 % 0-12 Automated blood eosinophils/100 leukocytes 3 % 0-10 Automated blood basophils/100 leukocytes 1 % 0-10 Blood neutrophils automated count (number/volume) 2.6 10*3 1.8-7.8 Blood lymphocytes automated count (number/volume) 2.0 10*3 1.0-4.0 Blood monocytes automated count (number/volume) 0. 3 10*3 0.0-1.0 Automated eosinophil count 0.2 10*3/uL 0 .0-0.3 Automated blood basophil count (count/volume) 0.0 10*3/uL 0.0-0.1 Whole blood basic metabolic panel - 04/18 05:24 Serum or plasma sodium measurement (moles/volume) 134 mmol/L 135-145 Serum or plasma potassium measurement (moles/volume) 5.1 mmol/L 3.6-5.0 Serum or plasma chloride measurement (moles/volume) 104 mmol/L 98-107 Carbon dioxide 22 mmol/L 21-32 Serum or plasma anion gap determination (moles/volume) 8 mmol/L 5-14 Serum or plasma urea nitrogen measurement (mass/volume ) 44 mg/dL 7-18 Serum or plasma creatinine measurement (mass/volume) 2.11 mg/dL 0.60-1.30 Serum or plasma urea nitrogen/creatinine mass ratio 21 NRG Serum or plasma creatinine measurement w ith calculation of estimated glomerular filtration rate 24 NRG Serum or plasma glucose measurement (mass/volume) 456 mg/dL 70-105 Serum or plasma calcium measurement (mass/volume) 8.4 mg/dL 8.5-10.1 Capillary blood glucose measurement by g lucometer (mass/volume) - 05/06/20 05:31 Capillary blood glucose measurement by glucometer (mas s/volume) 463 mg/dL 70-110 Capillary blood glucose measurement by g lucometer (mass/volume) - 05/06/20 07:56 Capillary blood glucose measurement by glucometer (mas s/volume) 338 mg/dL 70-110 Capillary blood glucose measurement by g lucometer (mass/volume) - 05/06/20 11:14 Capillary blood glucose measurement by glucometer (mas s/volume) 272 mg/dL 70-110 Capillary blood glucose measurement by g lucometer (mass/volume) - 05/06/20 16:27 Capillary blood glucose measurement by glucometer (mas s/volume) 174 mg/dL 70-110 Capillary blood glucose measurement by g lucometer (mass/volume) - 05/06/20 20:28 Capillary blood glucose measurement by glucometer (mas s/volume) 149 mg/dL 70-110 Complete blood count (CBC) with automate d white blood cell (WBC) differential - 05/07/20 05:06 Blood leukocytes automated count (number/volume) 5.7 10*3/uL 4.3-11.0 Blood erythrocytes automated count (number/volume) 3.65 10*6/uL 4.35-5.85 Venous blood hemoglobin measurement (mass/volume) 11.2 g/dL 11.5-16.0 Blood hematocrit (volume fraction) 34 % 35-52 Automated erythrocyte mean corpuscular volume 94 [ foz_us] 80-99 Automated erythrocyte mean corpuscular h emoglobin (mass per erythrocyte) 31 pg 25-34 Automated erythrocyte mean corpuscular h emoglobin concentration measurement (mass/volume) 33 g/dL 32-36 Automated erythrocyte distribution width ratio 13. 7 % 10.0- 14.5 Automated blood platelet count (count/volume) 337 10*3/uL 130-400 Automated blood platelet mean volume measurement 9.3 [foz_us] 7.4-10.4 Automated blood neutrophils/100 leukocytes 49 % 42-75 Automated blood lymphocytes/100 leukocytes 41 % 12-44 Blood monocytes/100 leukocytes 7 % 0-12 Automated blood eosinophils/100 leukocytes 3 % 0-10 Automated blood basophils/100 leukocytes 1 % 0-10 Blood neutrophils automated count (number/volume) 2.8 10*3 1.8-7.8 Blood lymphocytes automated count (number/volume) 2.4 10*3 1.0-4.0 Blood monocytes automated count (number/volume) 0. 4 10*3 0.0-1.0 Automated eosinophil count 0.2 10*3/uL 0 .0-0.3 Automated blood basophil count (count/volume) 0.0 10*3/uL 0.0-0.1 Whole blood basic metabolic panel - 04/18 12/06 05:06 Serum or plasma sodium measurement (moles/volume) 135 mmol/L 135-145 Serum or plasma potassium measurement (moles/volume) 4.4 mmol/L 3.6-5.0 Serum or plasma chloride measurement (moles/volume) 104 mmol/L 98-107 Carbon dioxide 22 mmol/L 21-32 Serum or plasma anion gap determination (moles/volume) 9 mmol/L 5-14 Serum or plasma urea nitrogen measurement (mass/volume ) 35 mg/dL 7-18 Serum or plasma creatinine measurement (mass/volume) 1.64 mg/dL 0.60-1.30 Serum or plasma urea nitrogen/creatinine mass ratio 21 NRG Serum or plasma creatinine measurement w ith calculation of estimated glomerular filtration rate 32 NRG Serum or plasma glucose measurement (mass/volume) 235 mg/dL 70-105 Serum or plasma calcium measurement (mass/volume) 8.8 mg/dL 8.5-10.1 Comprehensive metabolic panel - 05/16/20 16:45 Serum or plasma sodium measurement (moles/volume) 126 mmol/L 135-145 Serum or plasma potassium measurement (moles/volume) 4.4 mmol/L 3.6-5.0 Serum or plasma chloride measurement (moles/volume) 92 mmol/L 98-107 Carbon dioxide 22 mmol/L 21-32 Serum or plasma anion gap determination (moles/volume) 12 mmol/L 5-14 Serum or plasma urea nitrogen measurement (mass/volume ) 37 mg/dL 7-18 Serum or plasma creatinine measurement (mass/volume) 2.11 mg/dL 0.60-1.30 Serum or plasma urea nitrogen/creatinine mass ratio 18 NRG Serum or plasma creatinine measurement w ith calculation of estimated glomerular filtration rate 24 NRG Serum or plasma glucose measurement (mass/volume) 299 mg/dL 70-105 Serum or plasma calcium measurement (mass/volume) 9.1 mg/dL 8.5-10.1 Serum or plasma total bilirubin measurement (mass/volu me) 0.6 mg/dL 0.1-1.0 Serum or plasma alkaline phosphatase cody surement (enzymatic activity/volume) 99 U/L 40-136 Serum or plasma aspartate aminotransfera se measurement (enzymatic activity/volume) 16 U/L 5-34 Serum or plasma alanine aminotransferase measurement (enzymatic activity/volume) 22 U/L 0-55 Serum or plasma protein measurement (mass/volume) 7.7 g/dL 6.4-8.2 Serum or plasma albumin measurement (mass/volume) 3.3 g/dL 3.2-4.5 CALCIUM CORRECTED 9.7 mg/dL 8.5-10.1 Complete blood count (CBC) with automate d white blood cell (WBC) differential - 05/16/20 16:45 Blood leukocytes automated count (number/volume) 22.3 10*3/uL 4.3-11.0 Blood erythrocytes automated count (number/volume) 3.75 10*6/uL 4.35-5.85 Venous blood hemoglobin measurement (mass/volume) 11.4 g/dL 11.5-16.0 Blood hematocrit (volume fraction) 34 % 35-52 Automated erythrocyte mean corpuscular volume 91 [ foz_us] 80-99 Automated erythrocyte mean corpuscular h emoglobin (mass per erythrocyte) 30 pg 25-34 Automated erythrocyte mean corpuscular h emoglobin concentration measurement (mass/volume) 33 g/dL 32-36 Automated erythrocyte distribution width ratio 13. 5 % 10.0- 14.5 Automated blood platelet count (count/volume) 304 10*3/uL 130-400 Automated blood platelet mean volume measurement 9.4 [foz_us] 7.4-10.4 Automated blood neutrophils/100 leukocytes 78 % 42-75 Automated blood lymphocytes/100 leukocytes 14 % 12-44 Blood monocytes/100 leukocytes 8 % 0-12 Automated blood eosinophils/100 leukocytes 0 % 0-10 Automated blood basophils/100 leukocytes 0 % 0-10 Blood neutrophils automated count (number/volume) 17.5 10*3 1.8-7.8 Blood lymphocytes automated count (number/volume) 3.1 10*3 1.0-4.0 Blood monocytes automated count (number/volume) 1. 7 10*3 0.0-1.0 Automated eosinophil count 0.0 10*3/uL 0 .0-0.3 Automated blood basophil count (count/volume) 0.0 10*3/uL 0.0-0.1 Magnesium - 05/16/20 16:45 Magnesium 1.7 mg/dL 1.6-2.4 Serum or plasma troponin i.cardiac measu rement (mass/volume) - 05/16/20 16:45 Serum or plasma troponin i.cardiac measurement (mass/v olume) < ng/mL <0.028 Myoglobin, serum - 05/16/20 16:45 Myoglobin, serum 42.2 ng/mL 10.0-92.0 Beta-hydroxybutyric acid measurement - 0 05/16/20 16:45 Beta-hydroxybutyric acid measurement 0.63 mmol/L 0.00-0.27 Manual absolute plasma cell count - 04/19 16:45 Blood monocytes/100 leukocytes 7 % NRG Manual blood segmented neutrophils/100 leukocytes 72 % NRG Blood band neutrophils/100 leukocytes 5 % NRG Manual blood lymphocytes/100 leukocytes 14 % NRG Manual eosinophils/100 leukocytes in nose 1 % NRG Manual blood basophils/100 leukocytes 1 % NRG PT panel in platelet poor plasma by coag ulation assay - 05/16/20 16:45 Prothrombin time (PT) in platelet poor plasma by coagu lation assay 13.3 s 12.2-14.7 INR in platelet poor plasma or blood by coagulation as say 1.0 0.8-1.4 Activated partial thromboplastin time (a PTT) in platelet poor plasma bycoagulation assay - 05/16/20 16:45 Activated partial thromboplastin time (a PTT) in platelet poor plasma bycoagulation assay 29 s 24-35 Fibrin D-dimer FEU measurement in platel et poor plasma (mass/volume) - 05/16/20 16:45 Fibrin D-dimer FEU measurement in platelet poor plasma (mass/volume) 3.76 ug/mL 0.00-0.49 Serum or plasma lithium measurement (mol es/volume) - 05/16/20 16:45 BNP PT 347.3 pg/mL <100.0 Blood lactic acid measurement (moles/vol ume) - 05/16/20 17:26 Blood lactic acid measurement (moles/volume) 0.89 mmol/L 0.50-2.00 Complete urinalysis with reflex to cultu re - 05/16/20 18:06 Urine color determination YELLOW NRG Urine clarity [...] Urine ketones detection by automated test strip NE GATIVE NEGATIVE Urine nitrite detection by test strip [...] in u rine sediment by light microscopy RARE NRG Crystals detection in urine sediment by light microsco py NONE NRG Casts detection in urine sediment by light microscopy NONE NRG Mucus detection in urine sediment by light microscopy NEGATIVE NRG Complete urinalysis with reflex to culture NO NRG Urine drug screening test - 05/16/20 18: 06 Urine phencyclidine detection by screening method NEGATIVE NEGATIVE Urine benzodiazepines detection by screening method POSITIVE NEGATIVE Urine cocaine detection NEGATIVE NEGATI VE [...] TIVE Urine propoxyphene detection NEGATIVE N EGATIVE Encounters ACCT No. Visit Date/Time Discharge Status Pt. Type Provider Facility Loc./Unit Complaint [id number] 05/03/2020 18:54:00 020 11:30:00 DIS Outpatient TRUDI SERRANO MD [facility] [address] DKA [id number] 12/27/2019 04:00:00 020 13:15:00 DIS Outpatient NOEMÍ RAPHAEL MD [address] DKA,METHAMPHETAMINE,RES P FAILURE [id number] 11/19/2019 18:13:00 020 20:32:00 DIS Outpatient LIZET MAS APRN [facility] ER KIDNEY PAIN [id number] 06/27/2019 09:18:00 019 14:35:00 DIS Inpatient TRUDI SERRANO MD [facility] 4TH DKA [id number] 04/28/2019 13:00:00 23:59:59 CLS Preadmit AIDAN CHARLES MD [facility] RAD CKD STAGE 3 [id number] 01/05/2019 10:30:00 019 23:59:59 CLS Outpatient VAZQUEZ DONATALIIA L [facility] LAB N18.9 [id number] 12/01/2018 17:11:00 019 23:59:59 CLS Outpatient VAZQUEZ DO, NATALIIA L [facility] LAB E10.65 [id number] 07/23/2018 10:23:00 018 23:59:59 CLS Outpatient KARY ROWE DO A [facility] RAD TRAUMA LEFT ELB OW [id number] 04/15/2018 08:02:00 018 23:59:59 CLS Outpatient GEORGE DO, NATALIIA L [facility] LAB E10.65 [id number] 08/27/2017 08:40:00 017 23:59:59 CLS Outpatient KARY ROWE DO A [facility] LAB INC LIVER ENZYM ES, HYPERGLYCEMIA [id number] 07/22/2017 19:16:00 017 23:17:00 DIS Emergency LIZET MAS APRN [facility] ER VOMITING [id number] 07/07/2017 07:38:00 017 23:59:59 CLS Outpatient VAZQUEZ DO, NATALIIA L [facility] LAB E10.65 [id number] 06/14/2016 08:31:00 016 23:59:59 CLS Outpatient VAZQUEZ DO, NATALIIA L [facility] LAB DIABETES MELLIT US TYPE 1 [id number] 04/09/2016 09:58:00 016 23:59:59 CLS Outpatient VAZQUEZ DO, NATALIIA L [facility] LAB [id number] 03/15/2016 09:39:00 016 23:59:59 CLS Outpatient SHEREE BLUNT, BARBARA [place]ibodeaux [facility] LAB CHRONIC KIDNEY DISEASE,DIABETES TYPE I,PROTEINURIA [id number] 2016 15:41:00 18:19:00 DIS Emergency KUMAR BLUNT, SUZETTE Shannon [facility] ER LOW BLOOD SUGAR ,WITHDRAWAL [id number] 12/12/2015 13:02:00 016 23:59:59 CLS Outpatient SHEREE BLUNT, BARBARA [place]aux [facility] LAB DIRECTOR OF EMERGENCY NURSING MED U SE, CKD, HYPERLIPIDEMIA, [id number] 05/10/2015 23:17:00 14:00:00 DIS Inpatient SOLEDAD CHASE KARY Sb [facility] ICU OVERDOSE,AMS,HYPOTENSION,ACUTE KIDNEY INJURY [id number] 11/08/2014 00:41:00 014 23:59:59 CLS Preadmit SOLEDAD CHASE KARY Sb [facility] LAB DVT [id number] 08/09/2014 13:24:00 014 00:01:00 DIS Outpatient SOLEDAD CHASE KARY Sb [facility] LAB DVT [id number] 08/09/2014 13:19:00 014 23:59:59 CLS Outpatient NATALIIA VAZQUEZ DO [facility] LAB DIABETES [id number] 07/15/2014 11:53:00 014 23:59:59 CLS Outpatient SHEREE BLUNT, BARBARA [place] [facility] LAB DIABETES,PROTIE RIMMA, HTN [id number] 05/12/2014 07:48:00 014 23:59:59 CLS Outpatient NATALIIA VAZQUEZ DO [facility] LAB DM I [id number] 03/09/2014 11:10:00 014 23:59:59 CLS Outpatient BARBARA BENTLEY MD [facility] LAB DIABETES UNCOMP L TYPEI,PROTEINURIA,BENIGN ESSENTIA [id number] 11/25/2013 11:12:00 014 00:01:00 DIS Outpatient KARY ROWE DO [facility] LAB DVT [id number] 09/17/2013 08:20:00 23:59:59 CLS Outpatient KARY ROWE DO [facility] RAD BREAST LUMP [id number] 08/26/2013 08:37:00 23:59:59 CLS Outpatient KARY ROWE DO [facility] RAD SCREENING [id number] 08/25/2013 15:05:00 23:59:59 CLS Outpatient BARBARA BENTLEY MD [facility] RAD CHRONIC KIDNEY [id number] 08/19/2013 11:01:00 23:59:59 CLS Outpatient BARBARA BENTLEY MD [facility] LAB ABNORMALITIES O F BLOOD [id number] 05/16/2020 17:09:00 Document Registration [id number] 02/03/2015 07:49:00 Document Registration [id number] 02/03/2015 07:45:00 Document Registration [id number] 03/16/2013 00:00:00 Document Registration [id number] 01/01/2013 06:00:00 Document Registration [id number] 12/15/2012 12:50:00 Document Registration [id number] 12/15/2012 12:44:00 Document Registration [id number] 05/29/2012 11:00:00 Document Registration [id number] 04/27/2012 08:25:00 Document Registration [id number] 03/04/2012 11:54:00 Document Registration [id number] 01/20/2012 11:44:00 Document Registration [id number] 01/06/2012 12:34:00 Document Registration [id number] 01/03/2012 08:50:00 Document Registration [id number] 10/29/2011 14:13:00 Document Registration [id number] 10/24/2011 10:27:00 Document Registration [id number] 09/09/2011 11:35:00 Document Registration [id number] 05/29/2011 10:06:00 Document Registration [id number] 04/11/2011 11:54:00 Document Registration [id number] 02/03/2011 11:35:00 Document Registration [id number] 01/11/2011 11:51:00 Document Registration [id number] 11/30/2010 12:55:00 Document Registration
--- NOTE | 2020-05-16 19:00 | NUR ---
ASSUMED CARE OF THIS PATIENT AT THIS TIME. PATIENT IS RESTING QUIETLEY IN ROOM WITH CALL LIGHT IN REACH. MONITORING MAINTAINED.
--- NOTE | 2020-05-16 19:27 | NUR ---
CALLED TO GIVE REPORT, JUAN ALBERTO WILL CALL WHEN OUT OF REPORT.
--- NOTE | 2020-05-16 19:54 | NUR ---
JUAN ALBERTO CALLED AND WAS GIVEN REPORT BY THIS RN. JUAN ALBERTO STATES SHE WILL BE DOWN TO GET THE PATIENT IN 10-15 MINUTES.
[2020-05-16] MEDS ORDERED: VANCOMYCIN 1250 MG/NS 250 ML IVPB IV NR ×2 (20:15)
[2020-05-16 20:20] VITALS: BP 124/74
--- NOTE | 2020-05-16 20:25 | NUR ---
CR 2.11; CR CL ~26; WT 70.3 KG; VANCO 1250 MG IV BOLUS THEN 1000 MG IV Q24H X 3 DAYS
[2020-05-16] MEDS ORDERED: PIPERACILLIN/TAZO 4.5 GM/NS 100 ML IV NR ×2 (20:30)
[2020-05-16] MEDS ORDERED: CATHETER FLUSH 10 ML SYR IV PRN (20:30)
[2020-05-16] MEDS: NS IV 1000 ML 1,000 ML IV SCH (20:38)
[2020-05-16 20:43] VITALS: BP 179/92
[2020-05-16] MEDS ORDERED: PIPERACILLIN/TAZO 4.5 GM VIAL (ZOSYN) IV ONE (20:47)
[2020-05-16] MEDS ORDERED: VANCOMYCIN 1000 MG/VIAL ONE (20:47)
[2020-05-16] MEDS ORDERED: NS (IVPB) 100 ML ONE (20:47)
[2020-05-16] MEDS ORDERED: VANCOMYCIN 500 MG/VIAL IV ONE (20:47)
[2020-05-16] MEDS ORDERED: NS (IVPB) 250 ML ONE (20:47)
[2020-05-16] MEDS: ENOXAPARIN 80 MG/0.8 ML (LOVENOX) SYR SC SCH (20:53)
[2020-05-16] MEDS: inSUlin ASPART (NovoLOG) 1 UNIT/0.01 ML (CHARGE PER UNIT) SC SCH (20:54)
--- NOTE | 2020-05-16 20:54 | NUR ---
ALBUTEROL INHALER QID AND PRN. IS AND AEROBIKA TID. INITIATE 02 WITH SAT LESS THAN 90%. RT TO REEVALUATE IN 72 HOURS OR NEEDED. Addendum: 05/16/20 at 2053 by SUNSHINE SCHULTZ RT Amended: Links added.
[2020-05-16] MEDS ORDERED: inSUlin ASPART (NovoLOG) 1 UNIT/0.01 ML (CHARGE PER UNIT) SC SCH (21:00)
[2020-05-16] MEDS ORDERED: RT-ALBUTEROL INHALER HFA (VENTOLIN HFA) 8 GM IH PRN (21:00)
[2020-05-16] MEDS: CYCLOBENZAPRINE 10 MG (FLEXERIL) TAB PO PRN (22:07)
[2020-05-16 23:15] VITALS: BP 112/67
[2020-05-17] VITALS (13 sets, daily range): BP systolic 105–199; BP diastolic 65–99
[2020-05-17] MEDS ORDERED: PIPERACILLIN/TAZO 4.5 GM VIAL (ZOSYN) IV ONE (00:30)
[2020-05-17] MEDS ORDERED: NS (IVPB) 100 ML ONE (00:30)
[2020-05-17 01:02] LABS: BASOPHILS % (AUTO) 0 % (0-10); EOSINOPHILS % (AUTO) 0 % (0-10); HEMATOCRIT 31 % (35-52); HEMOGLOBIN 10.1 G/DL (11.5-16.0); LYMPHOCYTES # (AUTO) 2.7 X 10^3 (1.0-4.0); LYMPHOCYTES % (AUTO) 13 % (12-44); MEAN CORPUSCULAR HEMOGLOBIN 31 PG (25-34); MEAN CORPUSCULAR HGB CONC 33 G/DL (32-36); MEAN CORPUSCULAR VOLUME 93 FL (80-99); MEAN PLATELET VOLUME 9.4 FL (7.4-10.4); MONOCYTES # (AUTO) 1.2 X 10^3 (0.0-1.0); MONOCYTES % (AUTO) 6 % (0-12); NEUTROPHILS # (AUTO) 16.3 X 10^3 (1.8-7.8); NEUTROPHILS % (AUTO) 81 % (42-75); PLATELET COUNT 256 10^3/uL (130-400); RED CELL DISTRIBUTION WIDTH 13.6 % (10.0-14.5); WHITE BLOOD COUNT 20.1 10^3/uL (4.3-11.0)
[2020-05-17 01:07] LABS: POTASSIUM 4.4 MMOL/L (3.6-5.0)
[2020-05-17 01:08] LABS: CALCIUM 7.9 MG/DL (8.5-10.1)
[2020-05-17 01:09] LABS: TOTAL PROTEIN 6.8 GM/DL (6.4-8.2)
[2020-05-17 01:11] LABS: BILIRUBIN,TOTAL 0.4 MG/DL (0.1-1.0)
[2020-05-17 01:13] LABS: CREATININE SERUM 2.21 MG/DL (0.60-1.30)
[2020-05-17] MEDS: PIPERACILLIN/TAZO 4.5 GM/NS 100 ML IV SCH ×6 (01:59→17:38)
--- NOTE | 2020-05-17 04:03 | NUR ---
PT RUNNING FEVER AT THIS TIME. TYLENOL OFFERED BY THIS RN, BUT REFUSED BY PT D/T "KIDNEY ISSUES"
[2020-05-17] MEDS: NS IV 1000 ML 1,000 ML IV SCH ×4 (04:31→22:24)
[2020-05-17] MEDS: inSUlin ASPART (NovoLOG) 1 UNIT/0.01 ML (CHARGE PER UNIT) SC SCH ×4 (04:34→20:55)
[2020-05-17] MEDS: ACETAMINOPHEN 325 MG TABLET PO PRN ×2 (04:35→11:40)
[2020-05-17] MEDS ORDERED: RT-ALBUTEROL INHALER HFA (VENTOLIN HFA) 8 GM IH SCH (07:00)
[2020-05-17] MEDS ORDERED: IBUPROFEN 600 MG (MOTRIN) TAB PO ONE (08:16)
[2020-05-17] MEDS ORDERED: ASPIRIN 81 MG CHEW (CHILDREN'S ASA) ONE (08:21)
[2020-05-17] MEDS ORDERED: IBUPROFEN 600 MG (MOTRIN) TAB PO PRN (08:30)
[2020-05-17] MEDS: ASPIRIN 81 MG CHEW (CHILDREN'S ASA) PO SCH (08:37)
--- NOTE | 2020-05-17 09:10 | History & Physical-Hospitalist ---
History of Present Illness HPI/Chief Complaint Pt is a 55yoCF with a PMH of IDDMII, CKD, chronic pain, HTN who presented to the ER due to right sided chest pain. She states she started feeling poorly a couple of days ago and it worsened last night. It is made worse by deep breaths and with any movement. She was unaware she had a fever until arrival to the ER. She was found to have a leukocytosis as well and was admitted for sepsis from presumed pneumonia. This morning she states she is still not feeling well and can tell she has a fever still. I checked her temperature and it was 38.8. She denies any sick contacts but has been in the hospital and at multiple doctors offices recently to obtain care. Source: patient Date Seen 05/17/20 Time Seen by a Provider: 09:01 Attending Physician Trudi Castellanos MD PCP No,Local Physician Referring Physician Date of Admission May 16, 2020 at 18:35 Home Medications & Allergies Home Medications Reviewed patient Home Medication Reconciliation performed by pharmacy medication reconciliations motorsports technician and/or nursing. Patients Allergies have been reviewed. Allergies Allergies Coded Allergies Sulfa (Sulfonamide Antibiotics) (Unverified Allergy, Unknown, 05/11/15) codeine (Verified Allergy, Unknown, TAKES ULTRAM AT HOME, 11/18/08) ketorolac (Verified Allergy, Unknown, 10/05/08) tramadol (Verified Allergy, Unknown, 11/02/11) Past Iwtsxpc-Rgblol-Rjygxw Hx Past Med/Social Hx: Reviewed Nursing Past Med/Soc Hx Patient Social History Alcohol Use: Denies Use Recreational Drug Use: Yes Drug of Choice: THC Smoking Status: Current Everyday Smoker Type Used: Cigarettes 2nd Hand Smoke Exposure: No Recent Foreign Travel: No Contact w/other who traveled: No Recent Hopitalizations: No Recent Infectious Disease Expo: No Immunizations Up To Date Tetanus Booster (TDap): Unknown Date of Pneumonia Vaccine: Aug 17, 2012 Date of Influenza Vaccine: Aug 17, 2012 Seasonal Allergies Seasonal Allergies: No Past Medical History Surgeries: Adenoidectomy, Ear Surgery, Hysterectomy, Tonsillectomy Cardiac: Deep Vein Thrombosis Neurological: Neuropathy Reproductive: Yes Female Reproductive Disorders: Menstrual Problems Genitourinary: Renal Failure Gastrointestinal: Gastroesophageal Reflux, Pancreatitis, Ulcer Musculoskeletal: Arthritis, Rheumatoid Arthritis, Fractures Endocrine: Diabetes, Insulin dep HEENT: Tonsilitis Loss of Vision: Denies Hearing Impairment: Denies Psychosocial: Personality Disorder History of Blood Disorders: No Adverse Reaction to Blood High: No Family History Reviewed Nursing Family Hx FH: thyroid cancer G8 SISTER FHx: macular degeneration 19 MOTHER Glaucoma G8 BROTHER Heart Disease, Cancer, Diabetes Review of Systems Constitutional: chills, diaphoresis, fever, malaise, weakness Respiratory: cough; No short of breath Cardiovascular: chest pain; No palpitations Gastrointestinal: abdominal pain (chronic) Genitourinary: No dysuria, No frequency Musculoskeletal: no symptoms reported Skin: no symptoms reported Psychiatric/Neurological: Anxiety Physical Exam Physical Exam Vital Signs Vital Signs - First Documented 05/16/20 20:43 FiO2 21 Capillary Refill : Less Than 3 Seconds Height, Weight, BMI Height: 5'5.00" Weight: 151lbs. 1.0oz. [id number]; 26.10 BMI Method:Stated General Appearance: No Apparent Distress, Anxious, Chronically ill HEENT: PERRL/EOMI, Moist Mucous Membranes; No Scleral Icterus (L), No Scleral Icterus (R) Neck: Normal Inspection, Supple; No Thyromegaly Respiratory: No Accessory Muscle Use, Crackles (right lung base); No Wheezing Cardiovascular: Regular Rate, Rhythm, No Murmur Gastrointestinal: Normal Bowel Sounds, Non Tender, Soft Extremity: No Calf Tenderness, No Pedal Edema Neurologic/Psychiatric: Alert, Oriented x3; No Aphasia Skin: Normal Color, Warm/Dry Results Results/Procedures Labs Laboratory Tests 05/16/20 16:45 05/17/20 00:47 Patient resulted labs reviewed. Imaging: Reviewed Imaging Report Assessment/Plan Admission Diagnosis Severe Sepsis- present on arrival Pneumonia Elevated d-dimer Fever with tachycardia and LULY Continue on broad spectrum IV abx due to recent admission Satting well on room air remains febrile- requests 81mg ASA and ice packs for fever COVID19 testing pending Await cultures Continue lovenox for now until able to due CTA or VQ scan LULY on CKD Stage 3 Continue IVF baseline creatinine around 1.6 IDDMII BS high this morning Continue home insulin and increase sliding scale had multiple episodes of hypoglycemia during last admission so will titrate up cautiously HTN HLD Continue home meds when med rec available Admission Status: Inpatient Order (span 2 midnights) Reason for Inpatient Admission: severe sepsis Clinical Quality Measures AMI/AHF: ASA po Prior to arrival: No DVT/VTE Risk/Contraindication: Risk Factor Score Per Nursin RFS Level Per Nursing on Admit: 4+=Very High TRUDI CASTELLANOS MD May 17, 2020 09:10
[2020-05-17] MEDS: meTOprolol TARTRATE 50 MG (LOPRESSOR) TAB PO SCH ×2 (10:05→20:53)
[2020-05-17] MEDS: LORazepam 0.5 MG (ATIVAN) TABLET PO PRN ×2 (10:06→17:57)
[2020-05-17] MEDS: RT-ALBUTEROL INHALER HFA (VENTOLIN HFA) 8 GM IH SCH ×4 (10:29→21:13)
--- NOTE | 2020-05-17 13:03 | Diagnostic Imaging Report ---
INDICATION: Fever and pneumonia. TIME OF EXAM: 12:39 PM Correlation is made with prior chest from one day earlier. FINDINGS: Heart size is stable. Worsening appearance of chest is noted. There is central congestion. There is development of airspace infiltrate in the right perihilar region as well as both lung bases. No effusion or pneumothorax is identified. IMPRESSION: Developing bilateral airspace pulmonary infiltrates when compared with examination one day earlier. Dictated by: Dictated on workstation # [id number]
[2020-05-17] MEDS: ASPIRIN 325 MG (5 GR) TABLET PO PRN ×2 (16:55→22:28)
--- NOTE | 2020-05-17 17:40 | NUR ---
PT CALLED THIS RN TO ROOM C/O SEVERE CP, VITALS TAKEN WITH O2 SAT 82% ON ROOM AIR, THIS RN CALLED RT TO ROOM AND PT PLACED ON OXY MASK 10L WITH SAT OF 96%. EKG DONE AND THIS RN NOTIFIED DR SERRANO OF PT C/O, VITALS AND CHANGE IN OXYGEN STATUS AT 1805. ORDERED ABG AND TO TRANSFER PT TO ICU.
[2020-05-17 18:23] LABS: ABG BASE EXCESS -3.9 MMOL/L (-2.5-2.5); ABG OXYGEN SATURATION 94 % (94-100); ABG PCO2 32 MMHG (35-45); ABG PH 7.41 (7.37-7.43); ABG PO2 82 MMHG (79-93); ABG TCO2 20.4 MMOL/L (21.0-31.0); ALLENS TEST POSITIVE; INSPIRED O2 10; PATIENT TEMP 39.5; VENTILATOR NO
--- NOTE | 2020-05-17 18:30 | NUR ---
PT TRANSFERRED TO ICU 10 VIA BED ACCOMPANIED BY JUAN RN AND JUNIOR JARRETT.
[2020-05-17] MEDS: VANCOMYCIN 1 GM/NS 250 ML IVPB IV SCH ×2 (19:36)
[2020-05-17] MEDS: ENOXAPARIN 80 MG/0.8 ML (LOVENOX) SYR SC SCH (19:36)
[2020-05-18] VITALS (19 sets, daily range): BP systolic 101–238; BP diastolic 63–139
[2020-05-18] MEDS: RT-ALBUTEROL INHALER HFA (VENTOLIN HFA) 8 GM IH SCH ×6 (01:46→21:50)
[2020-05-18] MEDS: PROMETHAZINE INJ 25 MG/ML (PHENERGAN) AMP IV PRN ×2 (01:54→18:01)
[2020-05-18] MEDS: PIPERACILLIN/TAZO 4.5 GM/NS 100 ML IV SCH ×6 (01:56→17:31)
[2020-05-18 03:09] LABS: HEMOGLOBIN 11.7 G/DL (11.5-16.0); MEAN PLATELET VOLUME 9.4 FL (7.4-10.4)
[2020-05-18 03:20] LABS: POTASSIUM 3.8 MMOL/L (3.6-5.0)
[2020-05-18 03:21] LABS: CALCIUM 8.2 MG/DL (8.5-10.1)
[2020-05-18 03:25] LABS: CREATININE SERUM 1.95 MG/DL (0.60-1.30)
[2020-05-18] MEDS: ASPIRIN 325 MG (5 GR) TABLET PO PRN ×3 (03:34→21:09)
--- NOTE | 2020-05-18 03:35 | NUR ---
Critical blood glucose of 51 reported by Lab. Bedside finger stick glucose 56. Patient alert/oriented, talking to this life insurance underwriter, patient eating pudding and drinking an ensure.
[2020-05-18 03:56] LABS: PHOSPHORUS 3.5 MG/DL (2.3-4.7)
[2020-05-18 03:57] LABS: MAGNESIUM 1.7 MG/DL (1.6-2.4)
--- NOTE | 2020-05-18 04:05 | NUR ---
Patient in respiratory distress at this time. Call placed to Dr Juan Francisco Trujillo ICU. Patient SOA, Tachycardiac, Increased RR, patient very anxious at this time. Dr Chicas entered room with camera to assess the patient. Orders for Lasix and Ativan.
[2020-05-18] MEDS ORDERED: FUROSEMIDE 40 MG/4 ML INJ (LASIX) IVP ONE (04:15)
[2020-05-18] MEDS: LORazepam INJ 2 MG/ML (ATIVAN) VIAL IVP PRN (04:21)
--- NOTE | 2020-05-18 04:21 | NUR ---
Lasix 40mg and Ativan 2mg administered per Dr Order. Patient HR 170's at this time with oxygen sat of 88% oxy mask flush. Resp distress increased. BP 226/132. This short story writer called RT for BiPap for patient.
--- NOTE | 2020-05-18 04:30 | NUR ---
Bipap placed on patient by RT at this time. Settings 20/8 o2 100%.
--- NOTE | 2020-05-18 04:45 | NUR ---
Dr Winkler here at this time. Will consider intubation if patient condition warrants. Patient VS 166/99, RR 30, HR 146, Temp 38.7, BiPap oxygen 80%
--- NOTE | 2020-05-18 04:59 | Pulmonary Consultation ---
History of Present Illness History of Present Illness Date Seen by Provider: May 18, 2020 Time Seen by Provider: 04:54 Date of Admission History of Present Illness 55yo with PMH of IDDMII, CKD, presented to the ER secondary to persistent right sided chest pain. Onset was over last 2 days. While in the ED she was found to have a fever and sepsis. Denies any sick contacts but has been in the hospital and at multiple doctors offices. I am consulted for pulmonary/ICU management. Allergies and Home Medications Allergies Coded Allergies: Sulfa (Sulfonamide Antibiotics) (Unverified Allergy, Unknown, 05/11/15) codeine (Verified Allergy, Unknown, TAKES ULTRAM AT HOME, 11/18/08) ketorolac (Verified Allergy, Unknown, 10/05/08) tramadol (Verified Allergy, Unknown, 11/02/11) Home Medications Albuterol Sulfate 1 Puff Puff, 2 PUFF IH TID PRN for SHORTNESS OF BREATH, (Reported) Ascorbic Acid 1,000 Mg Tablet, 1,000 MG PO DAILY, (Reported) Cholecalciferol (Vitamin D3) 25 Mcg Tablet, 25 MCG PO BID, (Reported) Diclofenac Sodium 100 Gm Gel..gram., 1 APPLIC TOP QID PRN for CRAMPS, (Reported) APPLY TO LEGS Fluticasone Propionate 9.9 Ml [place].susp, 2 SPRAY NSEACH DAILY, (Reported) 1 SPRAY EACH NARE DAILY Furosemide 40 Mg Tablet, 40 MG PO DAILY, (Reported) Gabapentin 100 Mg Capsule, 100 MG PO TID, (Reported) Insulin Detemir 100 Unit/1 Ml Insuln.pen, 22 UNITS SC HS, (Reported) Insulin Lispro 100 Unit/1 Ml Insuln.pen, 5-15 UNITS SQ TIDWM, (Reported) Melatonin 10 Mg Tablet, 10 MG PO HS, (Reported) Metoclopramide HCl 10 Mg Tablet, 10 MG PO QIDACHS, (Reported) Metoprolol Tartrate 50 Mg Tablet, 50 MG PO BID, (Reported) Montelukast Sodium 10 Mg Tablet, 10 MG PO HS, (Reported) LAST FILLED 11-23-2019 #15 Naloxone HCl 4 Mg [place], 1 SPRAY NS UD PRN for UNRESPONSIVE, (Reported) ADMINSTER 1 SPRAY IN 1 NOSTRIL 1 TIME- MAY REPEAT IN ALTERNATING NOSTRIL EVERY 2-3 MINUTES UNTIL RESPONSIVE OR EMS ARRIVES Omeprazole 20 Mg Capsule.dr, 20 MG PO DAILY, (Reported) Oxycodone HCl 5 Mg Tablet, 5 MG PO DAILY PRN for PAIN-SEVERE (8-10) Prescribed by: TRUDI SERRANO on 05/07/20 1042 Potassium Gluconate 99 Mg Tablet, 99 MG PO DAILY, (Reported) Past Jutreas-Yrwgka-Aqajsi Hx Past Med/Social Hx: Reviewed Nursing Past Med/Soc Hx Patient Social History Alcohol Use: Denies Use Recreational Drug Use: Yes Drug of Choice: THC Smoking Status: Current Everyday Smoker Type Used: Cigarettes 2nd Hand Smoke Exposure: No Recent Foreign Travel: No Contact w/Someone Who Travel: No Recent Infectious Disease Expo: No Recent Hopitalizations: No Immunizations Up To Date Tetanus Booster (TDap): Unknown Date of Pneumonia Vaccine: Aug 17, 2012 Date of Influenza Vaccine: Aug 17, 2012 Seasonal Allergies Seasonal Allergies: No Past Medical History Surgeries: Yes (renal stents) Adenoidectomy, Ear Surgery, Hysterectomy, Tonsillectomy Respiratory: Yes Asthma, Pneumonia, Chronic Bronchitis Cardiac: Yes Deep Vein Thrombosis Neurological: Yes Neuropathy : No Reproductive Disorders: Yes Female Reproductive Disorders: Menstrual Problems Genitourinary: Yes Renal Failure Gastrointestinal: Yes (gastroparesis) Gastroesophageal Reflux, Pancreatitis, Ulcer Musculoskeletal: Yes Arthritis, Rheumatoid Arthritis, Fractures Endocrine: Yes Diabetes, Insulin dep HEENT: No Tonsilitis Loss of Vision: Denies Hearing Impairment: Denies Cancer: No Psychosocial: Yes Personality Disorder Integumentary: No Blood Disorders: No Adverse Reaction/Blood Tranf: No Family Medical History Reviewed Nursing Family Hx FH: thyroid cancer G8 SISTER FHx: macular degeneration 19 MOTHER Glaucoma G8 BROTHER Heart Disease, Cancer, Diabetes Review of Systems Time Seen by Provider: 07:08 Constitutional: Fever, Chills, Sweats, Weakness, Malaise, Other Eyes: No: Pain, Vision change, Conjunctivae inflammation, Eyelid inflammation, Other, Redness ENT: No: Ear pain, Ear discharge, Nose pain, Nose discharge, Nose congestion, Mouth pain, Mouth swelling, Throat pain, Throat swelling, Other Respiratory: Cough, Dry, Shortness of breath, SOB with excertion; No: Wheezing, Hemoptysis Cardiovascular: Chest Pain, Palpitations, Paroxysmal Noc. Dyspnea, Lt [place] ss Gastrointestinal: No: Nausea, Vomiting, Abdominal Pain, Diarrhea, Constipation, Melena, Hematochezia, Other Neurological: Weakness Sepsis Event Evaluation Height, Weight, BMI Height: 5'5.00" Weight: 151lbs. 1.0oz. 68.257520wu; 26.10 BMI Method:Stated Exam Exam Vital Signs Date Time Temp Pulse Resp B/P (MAP) Pulse Ox O2 Delivery O2 Flow Rate FiO2 05/18/20 03:32 38.4 05/18/20 03:15 100 Nasal Cannula 2.00 05/18/20 03:00 107 25 128/99 (109) 89 Nasal Cannula 2.00 05/18/20 02:00 97 21 134/96 (109) 98 Nasal Cannula 2.00 05/18/20 01:55 37.1 Nasal Cannula 2.00 05/18/20 01:46 98 Nasal Cannula 2.00 05/18/20 01:00 80 05/18/20 01:00 78 19 105/64 (78) 98 Nasal Cannula 2.00 05/18/20 00:00 81 19 102/65 (77) 98 Nasal Cannula 2.00 05/17/20 23:25 99 Nasal Cannula 2.00 05/17/20 23:20 37.4 05/17/20 23:00 87 20 106/66 (79) 99 Nasal Cannula 2.00 05/17/20 22:26 38.1 Nasal Cannula 2.00 05/17/20 22:00 92 23 113/70 (84) 97 Nasal Cannula 2.00 05/17/20 21:13 98 Nasal Cannula 2.50 05/17/20 21:00 101 14 130/71 (90) 97 Nasal Cannula 2.00 05/17/20 20:00 Nasal Cannula 2.00 05/17/20 20:00 103 20 118/67 (84) 98 Nasal Cannula 2.00 05/17/20 19:40 37.3 OxyMask 5.00 05/17/20 19:30 98 Nasal Cannula 2.00 05/17/20 19:00 110 05/17/20 19:00 108 23 105/67 (80) 98 OxyMask 10.00 05/17/20 18:45 112 48 123/65 (84) 98 OxyMask 10.00 05/17/20 18:30 39.2 05/17/20 17:53 92 Room Air 7/1/20 17:41 39.4 129 22 199/99 (132) 95 OxyMask 10.00 05/17/20 16:56 39.9 05/17/20 15:53 39.4 115 20 167/80 (109) 94 Room Air 05/17/20 14:33 90 Room Air 05/17/20 13:04 102 05/17/20 11:31 38.7 105 20 152/79 (103) 90 Room Air 05/17/20 10:35 96 Room Air 05/17/20 10:06 38.3 05/17/20 08:41 38.8 116 97 05/17/20 08:25 97 Room Air 05/17/20 08:15 38.8 125 16 171/80 (110) 97 Room Air 05/17/20 08:00 Room Air 05/17/20 07:14 112 05/17/20 05:03 39.3 I & O 05/18/20 07:00 Intake Total 3820 ml Output Total 745 ml Balance 3075 ml Height & Weight Height: 5'5.00" Weight: 151lbs. 1.0oz. 68.983479ki; 26.10 BMI Method:Stated General Appearance: Anxious, Chronically ill, Severe Distress HEENT: PERRL/EOMI, Moist Mucous Membranes; No Scleral Icterus (L), No Scleral Icterus (R) Neck: Normal Inspection, Supple; No Thyromegaly Respiratory: Accessory Muscle Use, Crackles (right lung base), Decreased Breath Sounds, Respiratory Distress; No Wheezing Cardiovascular: Regular Rate, Rhythm, No Murmur Capillary Refill: Less Than 3 Seconds Gastrointestinal: non tender, soft Extremity: No Calf Tenderness, Pedal Edema Neurologic/Psychiatric: Alert, Oriented x3; No Aphasia Skin: Normal Color, Warm/Dry Results Lab Laboratory Tests 05/16/20 16:45 05/17/20 00:47 05/18/20 03:00 Assessment/Plan Assessment/Plan Acute respiratory failure Tm 39.9 -40mg of Lasix given per EICU. -- Pt improved after lasix and BIPAP therapy -SL IVF for now -Check ABG and repeat CXR -Pt is now on BiPAP -COVID is neg x 1 -repeat COVID testing -Check RVP, urine strep and legionella ag -Continue respiratory isolation -DDimer is elevated. Pt is on theraputic dose Lovenox -Unable to r/o PE at this time Severe Sepsis with PNA -Continue Vanco and Zosyn Metabolic acidosis -Recheck LA LULY on CKD Stage 3 Continue IVF baseline creatinine around 1.6 IDDMII HTN HLD BLESSING SCHULTZ DO May 18, 2020 04:59
--- NOTE | 2020-05-18 05:00 | NUR ---
ABG drawn by RT at this time per Dr Winkler order 30 min post BiPap.
[2020-05-18] MEDS: inSUlin ASPART (NovoLOG) 1 UNIT/0.01 ML (CHARGE PER UNIT) SC SCH ×4 (05:05→21:10)
--- NOTE | 2020-05-18 05:17 | NUR ---
Temp 39 C at this time.
[2020-05-18 05:45] LABS: ABG BASE EXCESS -5.8 MMOL/L (-2.5-2.5); ABG OXYGEN SATURATION 97 % (94-100); ABG PCO2 37 MMHG (35-45); ABG PO2 148 MMHG (79-93); ABG TCO2 19.7 MMOL/L (21.0-31.0)
[2020-05-18 05:47] LABS: ABG PH 7.34 (7.37-7.43); ALLENS TEST YES-POS; INSPIRED O2 40%
[2020-05-18 05:48] LABS: PATIENT TEMP 38.7; VENTILATOR NO
[2020-05-18] MEDS: ACETAMINOPHEN 650 MG SUPP (TYLENOL) PR PRN (06:06)
--- NOTE | 2020-05-18 06:55 | Diagnostic Imaging Report ---
INDICATION: Respiratory distress. Comparison made with prior examination from 05/17/2020 FINDINGS: The heart size is normal. There is a right perihilar and right upper lobe infiltrate suspect for pneumonia. There is no pleural effusion or pneumothorax. Mediastinum is unremarkable. IMPRESSION: Right perihilar and right upper lobe infiltrate suspect for pneumonia. There may also be some mild such pulmonary venous congestion. Dictated by: Dictated on workstation # [id number]
--- NOTE | 2020-05-18 08:26 | Progress Note - Hospitalist ---
Subjective HPI/CC On Admission Date Seen by Provider: May 18, 2020 Time Seen by Provider: 08:25 Pt is a 55yoCF with a PMH of IDDMII, CKD, chronic pain, HTN who presented to the ER due to right sided chest pain. She states she started feeling poorly a couple of days ago and it worsened last night. It is made worse by deep breaths and with any movement. She was unaware she had a fever until arrival to the ER. She was found to have a leukocytosis as well and was admitted for sepsis from presumed pneumonia. This morning she states she is still not feeling well and can tell she has a fever still. I checked her temperature and it was 38.8. She denies any sick contacts but has been in the hospital and at multiple doctors offices recently to obtain care. Subjective/Events-last exam Reviewed events from last night. Developed acute respiratory distress and transferred to unit. Still on BiPAP. Reports still short of breath but no new complaints. Focused Exam Lactate Level 05/16/20 17:26: Lactic Acid Level 0.89 05/18/20 05:13: Lactic Acid Level 0.92 Lactic Acid Level Laboratory Tests Test 05/18/20 05:13 Lactic Acid Level 0.92 MMOL/L (0.50-2.00) Objective Exam Vital Signs Vital Signs Date Time Temp Pulse Resp B/P (MAP) Pulse Ox O2 Delivery O2 Flow Rate FiO2 05/18/20 07:50 96 20 98 25.00 05/18/20 06:06 38.2 05/18/20 06:00 105/67 (80) NIV Bilevel 05/16/20 20:43 21 Capillary Refill : Less Than 3 Seconds General Appearance: Anxious, Chronically ill Respiratory: Crackles, Decreased Breath Sounds, Other (on BiPAP) Cardiovascular: No Murmur, Tachycardia Gastrointestinal: Normal Bowel Sounds, Non Tender, Soft Neurologic/Psychiatric: Alert, Oriented x3 Results/Procedures Lab Laboratory Tests 05/18/20 03:00 Patient resulted labs reviewed. Imaging: Reviewed Imaging Report Assessment/Plan Assessment and Plan Assess & Plan/Chief Complaint Acute hypoxemic respiratory failure Severe Sepsis Pneumonia Elevated d-dimer Continue on broad spectrum IV abx due to recent admission Continues to fever, low threshold for broadening abx Currently on BiPAP doing ok but low threshold for intubation COVID19 testing negative but repeat pending given high suspicious BC with NGTD Discussed potential for BAL with Dr Winkler, given tenuous respiratory status will defer but if ends up on vent will likely proceed with bronch Continue lovenox, therapeutic dose given inability to due CTA or VQ and elevated D-Dimer LULY on CKD Stage 3 Continue IVF, creatine improving baseline creatinine around 1.6 IDDMII Hypoglycemic this morning, will decrease basal insulin Continue home insulin and increase sliding scale HTN HLD Mildly hypotensive, hold home meds Clinical Quality Measures AMI/AHF: ASA po Prior to arrival: No DVT/VTE Risk/Contraindication: Risk Factor Score Per Nursin RFS Level Per Nursing on Admit: 4+=Very High TRUDI SERRANO MD May 18, 2020 08:25
[2020-05-18] MEDS: meTOprolol TARTRATE 50 MG (LOPRESSOR) TAB PO SCH ×2 (08:50→20:21)
[2020-05-18] MEDS: LORazepam 0.5 MG (ATIVAN) TABLET PO PRN ×2 (08:51→19:25)
[2020-05-18] MEDS: ASPIRIN 81 MG CHEW (CHILDREN'S ASA) PO SCH (08:51)
--- NOTE | 2020-05-18 15:00 | NUR ---
THIS NURSE ENCOURAGED PT TO TAKE TYLENOL FOR FEVER. PT STATES " I FEEL AWFUL. ONLY ASPIRIN WORKS FOR ME. I WON'T TAKE TYLENOL." THIS NURSE EDUCATED ON FEVER. PT STILL REFUSED.
--- NOTE | 2020-05-18 15:40 | NUR ---
THIS NURSE AGAIN EDUCATED PT ON FEVER AND ENCOURAGED HER TO TAKE TYLENOL. PT REFUSED STATING "I WANT TO WAIT TO SEE IF THE ASPIRIN WILL WORK."
[2020-05-18 16:04] LABS: ABG BASE EXCESS -5.8 MMOL/L (-2.5-2.5); ABG OXYGEN SATURATION 95 % (94-100); ABG PCO2 33 MMHG (35-45); ABG PH 7.37 (7.37-7.43); ABG PO2 94 MMHG (79-93); ABG TCO2 19.1 MMOL/L (21.0-31.0)
[2020-05-18 16:12] LABS: ALLENS TEST POSITIVE; INSPIRED O2 3 L; PATIENT TEMP 39.2; VENTILATOR NO
[2020-05-18] MEDS: ACETAMINOPHEN 325 MG TABLET PO PRN (16:45)
--- NOTE | 2020-05-18 17:18 | NUR ---
THIS NURSE NOTIFIED E-ICU DR MCNEAL THAT PT STILL HAS A FEVER AFTER RECEIVING TYLENOL AND ASPIRIN. PT ALSO HAS ICE PACKS IN PLACE. PT IS CONFUSED,TACHY, AND LETHARGIC. E-ICU GAVE ORDERS FOR A ONE TIME DOSE OF TYLENOL. E-ICU SAID TO MONITOR TEMP AND TO TREAT IF THEY REMAIN ABOVE 40. C. THIS NURSE AT BEDSIDE TO MONITOR.
[2020-05-18] MEDS ORDERED: ACETAMINOPHEN 500 MG TAB (TYLENOL) PO ONE (17:30)
[2020-05-18] MEDS ORDERED: ACETAMINOPHEN 500 MG TAB (TYLENOL) ONE (17:32)
[2020-05-18] MEDS: ENOXAPARIN 80 MG/0.8 ML (LOVENOX) SYR SC SCH (20:20)
[2020-05-18] MEDS: CYCLOBENZAPRINE 10 MG (FLEXERIL) TAB PO PRN (20:21)
[2020-05-18] MEDS: VANCOMYCIN 1 GM/NS 250 ML IVPB IV SCH ×2 (20:31)
--- NOTE | 2020-05-18 21:30 | NUR ---
Temp 38.4. Aspirin given as ordered. Pt states that she will not take anymore Tylenol. Attempted to educate pt that she needs Tylenol for the fever but pt refuses.
[2020-05-19] VITALS (21 sets, daily range): BP systolic 95–188; BP diastolic 60–115
--- NOTE | 2020-05-19 02:30 | NUR ---
This RN to room, temp 39.3, pt educated on fever, Tylenol offered. Pt refused, stating that she will use ice packs and wet washcloths to "start the process" of reducing her fever. Pt again educated, therapeutic communication attempted, pt again refused Tylenol and aspirin, stating, "sometimes if you talk to your body, you get the results you want." More education attempted, ice packs placed, pt wiped down with cool, wet washcloth. Will continue to monitor.
[2020-05-19] MEDS: PIPERACILLIN/TAZO 4.5 GM/NS 100 ML IV SCH ×4 (02:38→11:43)
[2020-05-19 03:04] LABS: BASOPHILS % (AUTO) 0 % (0-10); EOSINOPHILS # (AUTO) 0.2 10^3/uL (0.0-0.3); EOSINOPHILS % (AUTO) 1 % (0-10); HEMATOCRIT 31 % (35-52); HEMOGLOBIN 10.2 G/DL (11.5-16.0); LYMPHOCYTES # (AUTO) 1.8 X 10^3 (1.0-4.0); LYMPHOCYTES % (AUTO) 11 % (12-44); MEAN CORPUSCULAR HEMOGLOBIN 30 PG (25-34); MEAN CORPUSCULAR HGB CONC 33 G/DL (32-36); MEAN CORPUSCULAR VOLUME 92 FL (80-99); MEAN PLATELET VOLUME 10.1 FL (7.4-10.4); MONOCYTES # (AUTO) 0.6 X 10^3 (0.0-1.0); MONOCYTES % (AUTO) 4 % (0-12); NEUTROPHILS % (AUTO) 84 % (42-75); PLATELET COUNT 269 10^3/uL (130-400); RED CELL DISTRIBUTION WIDTH 14.1 % (10.0-14.5); WHITE BLOOD COUNT 15.5 10^3/uL (4.3-11.0)
[2020-05-19 03:10] LABS: ALBUMIN 2.6 GM/DL (3.2-4.5)
[2020-05-19 03:11] LABS: CALCIUM 8.4 MG/DL (8.5-10.1)
[2020-05-19 03:13] LABS: TOTAL PROTEIN 6.6 GM/DL (6.4-8.2)
[2020-05-19 03:14] LABS: BILIRUBIN,TOTAL 0.3 MG/DL (0.1-1.0)
[2020-05-19 03:16] LABS: CREATININE SERUM 2.07 MG/DL (0.60-1.30); PHOSPHORUS 3.3 MG/DL (2.3-4.7)
[2020-05-19 03:19] LABS: MAGNESIUM 1.7 MG/DL (1.6-2.4)
[2020-05-19] MEDS: ASPIRIN 325 MG (5 GR) TABLET PO PRN (03:40)
[2020-05-19] MEDS: ACETAMINOPHEN 325 MG TABLET PO PRN ×3 (03:40→21:36)
--- NOTE | 2020-05-19 03:40 | NUR ---
This RN to room, temp 40.3. Fever-reducing medicine offered again, pt refused again. Pt given the option of taking aspirin and Tylenol now, or waiting until the fever increases and seizure occurs, then getting the medication rectally. Pt opted to take po meds. Will continue to monitor.
[2020-05-19] MEDS: RT-ALBUTEROL INHALER HFA (VENTOLIN HFA) 8 GM IH SCH ×4 (03:58→20:52)
[2020-05-19] MEDS: inSUlin ASPART (NovoLOG) 1 UNIT/0.01 ML (CHARGE PER UNIT) SC SCH ×6 (05:57→23:57)
[2020-05-19] MEDS: meTOprolol TARTRATE 50 MG (LOPRESSOR) TAB PO SCH (08:29)
[2020-05-19] MEDS: ASPIRIN 81 MG CHEW (CHILDREN'S ASA) PO SCH (08:29)
[2020-05-19] MEDS: LORazepam 0.5 MG (ATIVAN) TABLET PO PRN (08:39)
[2020-05-19 11:14] LABS: RSV PCR TEST Not Detected (Not Detected)
--- NOTE | 2020-05-19 11:21 | Progress Note - Hospitalist ---
Subjective HPI/CC On Admission Date Seen by Provider: May 19, 2020 Time Seen by Provider: 09:15 Pt is a 55yoCF with a PMH of IDDMII, CKD, chronic pain, HTN who presented to the ER due to right sided chest pain. She states she started feeling poorly a couple of days ago and it worsened last night. It is made worse by deep breaths and with any movement. She was unaware she had a fever until arrival to the ER. She was found to have a leukocytosis as well and was admitted for sepsis from presumed pneumonia. This morning she states she is still not feeling well and can tell she has a fever still. I checked her temperature and it was 38.8. She denies any sick contacts but has been in the hospital and at multiple doctors offices recently to obtain care. Subjective/Events-last exam Patient doing much better Trying to get to the commode Flaherty virus swabs x2 negative will take out of isolation Much improved lung status will transfer to 4th floor Monitor closely Review of Systems General: Fatigue Pulmonary: Dyspnea Gastrointestinal: Constipation Focused Exam Lactate Level 05/16/20 17:26: Lactic Acid Level 0.89 05/18/20 05:13: Lactic Acid Level 0.92 Objective Exam Vital Signs Vital Signs Date Time Temp Pulse Resp B/P (MAP) Pulse Ox O2 Delivery O2 Flow Rate FiO2 05/19/20 14:21 39.4 05/19/20 13:33 110 95 05/19/20 12:02 Room Air 05/19/20 12:00 15 159/84 (109) 05/19/20 01:00 1.00 05/18/20 08:00 40 Capillary Refill : Less Than 3 Seconds General Appearance: Anxious, Chronically ill, Mild Distress Respiratory: Chest Non Tender, Lungs Clear, Normal Breath Sounds, No Accessory Muscle Use, No Respiratory Distress, Decreased Breath Sounds Cardiovascular: Regular Rate, Rhythm, No Edema, No Gallop, No JVD, No Murmur, Normal Peripheral Pulses Extremity: Normal Capillary Refill, Normal Inspection, Normal Range of Motion, Non Tender, No Calf Tenderness, No Pedal Edema Neurologic/Psychiatric: Alert, Oriented x3, No Motor/Sensory Deficits, Normal Mood/Affect Results/Procedures Lab Laboratory Tests 05/19/20 02:50 Patient resulted labs reviewed. Imaging: Reviewed Imaging Report Assessment/Plan Assessment and Plan Assess & Plan/Chief Complaint Assessment: Respiratory insufficiency PNA COVID-19 negative x2 swabs Constipation Anxiety Plan: Transfer out of ICU Continue antibiotics Bowel regimen Diagnosis/Problems Diagnosis/Problems (1) Aspiration pneumonia (2) Acute kidney injury superimposed on chronic kidney disease Status: Acute (3) Leukocytosis Status: Acute (4) Insulin dependent diabetes mellitus Status: Chronic (5) Chest wall pain Status: Acute (6) Hypotension Status: Acute (7) Hypertension Status: Chronic (8) Altered mental status Status: Acute Clinical Quality Measures AMI/AHF: ASA po Prior to arrival: No DVT/VTE Risk/Contraindication: Risk Factor Score Per Nursin RFS Level Per Nursing on Admit: 4+=Very High OSCAR PARRA DO May 19, 2020 11:21
[2020-05-19] MEDS: AZITHROMYCIN INJECTION 500 MG in NS (IVPB) 250 ML IV SCH (11:43)
--- NOTE | 2020-05-19 13:16 | NUR ---
RD ASSESSMENT PMHx: DM; CKD; DVT; GERD; pancreatitis; hx of DKA PT INTERACTION: Pt was awake and pleasant during nutrition assessment. Pt states current appetite is not good, but it's getting better. Note avg PO intake 69% x2d, per chart review. Pt states following a regular diet at home, and has no issues with chewing/swallowing food. Note pt has missing teeth, per visual assessment. Pt states recent issues with nausea and vomiting. Pt states no recent issues with constipation or diarrhea, and that her last BM was "before I got here." Note pt not currently on bowel regimen per chart review. Pt states unsure of recent wt changes. Note recent 18# wt gain x3w per chart review. Pt states current DM management is "getting better." Note recent HbA1c of 12.0 taken on 05/04/20, per chart review. Note recent DM education given on 05/04/20 and 12/31/19, per chart review. ABNORMAL NUTRITION-RELATED LAB VALUES LOW: Na 134; Ca 8.4; alb 2.8 HIGH: BUN 26; cr 2.07 Est. kcal needs: 3941-1057 kcal | 20-25 kcal/kg Est. Pro needs: 65-82 g Pro | 0.8-1.0 g Pro/kg PES STATEMENT: Inadequate oral intake (NI-2.1) related to loss of appetite | nausea | vomiting as evidenced by pt interview | avg PO intake 69% x2d INTERVENTION: Continue with current diet order of CHO 60g/m 1snack diet. Pt may benefit from nutrition supplementation if PO intake declines. Encouraged pt to continue with DM management. Will continue to follow and reassess as pt needs, intake, and status change. MONITOR/EVALUATE: PO Intake; Plan of Care; Hydration Status; Weight Status; Lab Values Jerzy Barbosa, MS, RD, LD
[2020-05-19] MEDS: PROMETHAZINE INJ 25 MG/ML (PHENERGAN) AMP IV PRN (14:14)
--- NOTE | 2020-05-19 15:05 | NUR ---
This RN into room to speak with pt about transferring to 4th floor. Noticed pt sitting in bed, tachypneic, using neck muscles et abd to assist breaths. HR 150s, BP 180s/110s, O2 sat 88% on room air. Pt alert and oriented. eICU called, ABG et CXR obtained. Pt placed on BiPAP 25%
[2020-05-19] MEDS: LORazepam INJ 2 MG/ML (ATIVAN) VIAL IVP PRN (15:12)
[2020-05-19 15:15] LABS: ABG BASE EXCESS -7.9 MMOL/L (-2.5-2.5); ABG OXYGEN SATURATION 85 % (94-100); ABG PCO2 30 MMHG (35-45); ABG PH 7.36 (7.37-7.43); ABG PO2 63 MMHG (79-93)
[2020-05-19 15:18] LABS: ALLENS TEST YES-POS; VENTILATOR NO
[2020-05-19 15:19] LABS: INSPIRED O2 25%; PATIENT TEMP 39.1
--- NOTE | 2020-05-19 15:41 | Diagnostic Imaging Report ---
INDICATION: Respiratory distress. TECHNIQUE: Single AP view of the chest is obtained. FINDINGS: Since the study one day earlier, there has been further consolidation in the upper lobe of the right lung with increased right hilar density. There is mild basilar atelectasis bilaterally. No pneumothorax is seen. IMPRESSION: Increasing consolidation in the right upper lobe which is likely due to worsening pneumonia. There may be central obstructing lesion and clinical correlation is recommended. Consideration could be given to bronchoscopy for further evaluation. Dictated by: Dictated on workstation # [id number]
[2020-05-19] MEDS ORDERED: MEROPENEM 1,000 MG in WATER (STERILE) FOR INJECTION 20 ML IV SCH (15:45)
[2020-05-19] MEDS: MEROPENEM 500 MG/SWFI 10 ML IV PUSH IV SCH ×4 (16:22→23:44)
[2020-05-19] MEDS: DexMEDEtomidine 250 ML DRIP 250 ML IV SCH (16:22)
[2020-05-19] MEDS: SODIUM BICARBONATE 8.4% VIAL 100 MEQ in 1/2 NS IV SOLUTION 1,000 ML IV SCH (17:18)
[2020-05-19 17:26] LABS: CLARITY,URINE CLEAR; COLOR,URINE YELLOW; GLUCOSE, URINE (UA) 2+ (NEGATIVE); KETONES,URINE 1+ (NEGATIVE); LEUKOCYTE ESTERASE ,URINE NEGATIVE (NEGATIVE); NITRITE,URINE NEGATIVE (NEGATIVE); PROTEIN,URINE 3+ (NEGATIVE)
[2020-05-19 18:17] LABS: AMORPHOUS SEDIMENT,UR FEW AMOR URATES /LPF; BACTERIA,URINE TRACE /HPF; BILIRUBIN,URINE 1+ (NEGATIVE); WBC,URINE 0-2 /HPF
[2020-05-19] MEDS: ENOXAPARIN 80 MG/0.8 ML (LOVENOX) SYR SC SCH (20:21)
--- NOTE | 2020-05-19 20:50 | NUR ---
Pt c/o pain 07/27, this RN notified Tele-icu. New order received for Morphine 2mg IVP X1 Now. This RN tried to administer to patient, patient stated she's allergic to morphine and throws up when she takes it. This RN added Morphine to patient's allergy list. 2mg Morphine was wasted at this time, witnessed by KOLBY Morgan.
[2020-05-19] MEDS ORDERED: morphine INJ 10 MG/ML 1ML (SYR OR VIAL) IVP STA (21:08)
[2020-05-19] MEDS: meTOprolol 5 MG/5 ML (LOPRESSOR) VIAL IV SCH (23:44)
[2020-05-20] VITALS (30 sets, daily range): BP systolic 99–154; BP diastolic 50–82
[2020-05-20] MEDS ORDERED: DEXTROSE 50% 50 ML (IMS) SYR IV ONE
[2020-05-20] MEDS: SODIUM BICARBONATE 8.4% VIAL 100 MEQ in 1/2 NS IV SOLUTION 1,000 ML IV SCH ×2 (03:00→06:33)
[2020-05-20] MEDS: RT-ALBUTEROL INHALER HFA (VENTOLIN HFA) 8 GM IH SCH ×4 (03:10→22:30)
[2020-05-20] MEDS: ACETAMINOPHEN 650 MG SUPP (TYLENOL) PR PRN (04:17)
[2020-05-20 04:23] LABS: ABG BASE EXCESS -1.9 MMOL/L (-2.5-2.5); ABG OXYGEN SATURATION 95 % (94-100); ABG PCO2 30 MMHG (35-45); ABG PH 7.46 (7.37-7.43); ABG PO2 95 MMHG (79-93); ABG TCO2 21.6 MMOL/L (21.0-31.0); BASOPHILS % (AUTO) 0 % (0-10); EOSINOPHILS # (AUTO) 0.1 10^3/uL (0.0-0.3); EOSINOPHILS % (AUTO) 1 % (0-10); HEMATOCRIT 26 % (35-52); HEMOGLOBIN 8.7 G/DL (11.5-16.0); LYMPHOCYTES % (AUTO) 6 % (12-44); MEAN CORPUSCULAR HEMOGLOBIN 30 PG (25-34); MEAN CORPUSCULAR HGB CONC 33 G/DL (32-36); MEAN CORPUSCULAR VOLUME 91 FL (80-99); MEAN PLATELET VOLUME 10.6 FL (7.4-10.4); MONOCYTES # (AUTO) 0.6 X 10^3 (0.0-1.0); MONOCYTES % (AUTO) 4 % (0-12); NEUTROPHILS # (AUTO) 14.5 X 10^3 (1.8-7.8); NEUTROPHILS % (AUTO) 89 % (42-75); PLATELET COUNT 280 10^3/uL (130-400); RED CELL DISTRIBUTION WIDTH 13.7 % (10.0-14.5); WHITE BLOOD COUNT 16.2 10^3/uL (4.3-11.0)
--- NOTE | 2020-05-20 04:24 | NUR ---
THIS RN NOTIFIED TELE-ICU OF PATIENT'S SPIKE IN TEMPERATURE OF 40.0 CELCIUS (104.0 FAHRENHEIT), HR IN 100'S, INCREASED BP OF 154/82, RR 22, 02 96% ON BIPAP WITH SETTINGS OF: FIO2 OF 25%, 16/6 WITH SET RATE OF 16. NEW ORDER RECEIVED TO INCREASE BIPAP FIO2 TO 40% AT THIS TIME. THIS RN NOTIFIED TELE ICU THAT PATIENT IS STATING SHE "CANNOT BREATHE", PATIENT IS SITTING UP IN BED TRYING TO TAKE OF BIPAP. TELE-ICU DOCTOR ASSESSING PATIENT VIA BEDSIDE CAMERA. THIS RN ADMINISTERED 650MG TYLENOL SUPPOSITORY AND APPLIED COOLING MEASURES TO PATIENT VIA ICE PACKS TO BILATERAL GROIN, BILATERAL AXILLARY, BACK AND COOLING BLANKET TO LEGS. THIS RN WILL CONTINUE TO MONITOR.
[2020-05-20 04:26] LABS: ALLENS TEST YES-POS
[2020-05-20 04:27] LABS: INSPIRED O2 25%; VENTILATOR NO
[2020-05-20] MEDS ORDERED: fentaNYL INJECTION 100 MCG/2 ML AMP IVP ONE (04:30)
--- NOTE | 2020-05-20 05:00 | NUR ---
THIS RN DID NOT REPLACE MAGNESIUM PER ICU PROTOCOL DUE TO DECREASED URINE OUTPUT <0.5ML/KG/HR.
[2020-05-20 05:01] LABS: POTASSIUM 4.1 MMOL/L (3.6-5.0)
[2020-05-20 05:02] LABS: CALCIUM 8.4 MG/DL (8.5-10.1)
[2020-05-20 05:06] LABS: PHOSPHORUS 2.4 MG/DL (2.3-4.7)
[2020-05-20 05:07] LABS: CREATININE SERUM 2.11 MG/DL (0.60-1.30)
[2020-05-20 05:09] LABS: MAGNESIUM 1.7 MG/DL (1.6-2.4)
[2020-05-20] MEDS: LORazepam INJ 2 MG/ML (ATIVAN) VIAL IVP PRN (05:38)
--- NOTE | 2020-05-20 05:49 | NUR ---
THIS RN NOTIFIED TELE ICU OF PATIENT'S CONTINUED FEVER OF 103 FAHRENHEIT DESPITE MEDICATION GIVEN TO REDUCE FEVER. PATIENT TRIPODING IN BED WITH CONTINUED INCREASED WORK OF BREATHING WITH ACCESSORY MUSCLES, NECK PULLING AND ABDOMINAL BREATHING.
--- NOTE | 2020-05-20 05:53 | NUR ---
NEW ORDER RECEIVED AT THIS TIME FROM TELE-ICU FOR INTUBATION.
[2020-05-20] MEDS: meTOprolol 5 MG/5 ML (LOPRESSOR) VIAL IV SCH ×4 (06:00→23:25)
[2020-05-20] MEDS: inSUlin ASPART (NovoLOG) 1 UNIT/0.01 ML (CHARGE PER UNIT) SC SCH ×4 (06:00→23:19)
[2020-05-20] MEDS: POTASSIUM CL 10MEQ/50ML IVPB 50 ML IV SCH (06:00)
[2020-05-20] MEDS: KCL 20 MEQ TAB (K-DUR) PO SCH (06:00)
[2020-05-20 06:10] LABS: ABG BASE EXCESS -2.3 MMOL/L (-2.5-2.5); ABG OXYGEN SATURATION 98 % (94-100); ABG PCO2 30 MMHG (35-45); ABG PH 7.46 (7.37-7.43); ABG PO2 189 MMHG (79-93); ABG TCO2 21.2 MMOL/L (21.0-31.0)
[2020-05-20 06:13] LABS: ALLENS TEST YES-POS; INSPIRED O2 40%; PATIENT TEMP 39.4; VENTILATOR NO
--- NOTE | 2020-05-20 07:14 | Anesthesia-Procedure Note ---
Procedures/Interventions Procedure Start/Stop/Diagnosis Date of Procedure: May 20, 2020 Start Time: 06:50 Stop Time: 07:15 Intubation RSI: Yes 100% pre-Ox, [id number]: Yes Intubation Method: orotracheal Videoscope used: Yes Grade View: 1 Medications: Etomidate, Succinylcholine Positive End Tide CO2: Yes Breath Sounds after Intubation: bilateral-equal Intubated with ease: Yes Intubation Complications: no complications Care turned over to: RN/AMBROSEU AYO SORIANO CRNA May 20, 2020 07:14
--- NOTE | 2020-05-20 07:57 | Diagnostic Imaging Report ---
Indication: Shortness of breath Portable chest 4:21 AM Comparison with the previous day There are infiltrates present in the right upper lobe and right lower lobe. There is also some faint infiltrate and left lower lung. These are not appreciably changed from the previous day. There are no effusions or pneumothoraces. IMPRESSION: Multifocal infiltrates consistent with pneumonia Dictated by: Dictated on workstation # [id number]
--- NOTE | 2020-05-20 08:15 | Diagnostic Imaging Report ---
INDICATION: Line placement Since the earlier exam, the portable chest shows interval placement of an ET tube which is below the thoracic inlet and above the cherie. There has been placement of an OG tube with tip in the distal body of the stomach. There has been placement of a right-sided IJ line with tip in the mid SVC level. There has been improved aeration of the lungs. There remains some right upper lobe atelectasis and infiltrate. There is no effusion or pneumothorax. IMPRESSION: Interval placement of support lines and tubes, as described. There has been improved aeration of the lungs. Dictated by: Dictated on workstation # [id number]
--- NOTE | 2020-05-20 08:35 | NUR ---
TIMELINE NOTE BELOW: 0640- THIS RN NOTIFIED PATIENT'S MOM-TARYN AND DAUGHTER-CLARE OF PATIENT'S DECLINING RESPIRATORY STATUS. TELEPHONE CONSENT RECEIVED AT THIS TIME FOR INTUBATION. WITNESSED BY THIS RN AND KOLBY SHERMAN. 0704- 2RT, THIS RN, AND EULA MOY AT BEDSIDE DURING INTUBATION. 0706- 20MG ETOMIDATE AND 60MG OF SUCCINYLCHOLINE GIVEN AT THIS TIME. 0708- PT INTUBATED BY FARZANEH FORDE. COLOR CHANGE NOTED ON C02 MONITOR. PT INTUBATED WITH A 8 ET TUBE, 23 AT THE LIP. RT CONNECTED PATIENT TO VENTILATOR. 0715- OG PLACED AND PLACEMENT CHECKED BY THIS RN. 0720- RESTRAINTS PLACED. 0730- DR. HAYDEN AT BEDSIDE FOR CENTRAL LINE PLACEMENT. 0745- CXR OBTAINED FOR CONFIRMATION OF PLACEMENT. DR. HAYDEN REVIEWED CXR AND CONFIRMATION GIVEN OF PLACEMENT. 0750- WILL CONTINUE TO MONITOR. 0809- THIS RN CONTACTED PATIENT'S MOTHER, TARYN, AND GAVE UPDATE THAT INTUBATION WENT WELL AND PATIENT RESTING COMFORTABLY AT THIS TIME.
--- NOTE | 2020-05-20 08:40 | Procedure/Intervention Note ---
Procedures/Interventions Lumen: triple Central Line Procedure: betadine prep (chlorhexidine prep), sterile drapes applied, sterile dressing applied Position: internal jugular (R) Anesthesia: Lidocaine Volume Anesthetic (ccs): 3 Complications: none Post Position: sutured, good blood return, position confirmed w/ CXR Emergent consent was given based on hypotension. Right time, patient and procedure. Site was looked at using ultrasound and she had a large right internal jugular easily accessible. Skin was prepped in the usual fashion and she was draped out in the usual sterile fashion. Everybody present wasn't wearing appropriate PPE. 3 cc of 1% lidocaine was injected superficially over the right IJ. We used the introducer needle to access the right internal jugular under ultrasound guidance. We watch the tip of the needle as it entered the internal jugular. Guidewire was placed and no ectopy was seen on the monitor. A small arsh was made in the skin at the base of the needle using the supplied 11 blade scalpel. Needle was removed and the dilator was placed over the guidewire and removed surgically. We then threaded the central lumen of the triple lumen catheter that was previously flushed with sterile saline over the guidewire. He was placed at 13 cm and sutured in place 2 different points. Sterile dressing with Biopatch was placed. Central lumen easily withdrew and flushed. Chest x-ray was obtained demonstrating good position without crossing the midline and no evidence pneu mothorax. The tip of the central lumen terminated in the superior vena cava about a centimeter above the right atria. Date of ETT Placement: May 20, 2020 Time of ETT Placement: 0700 Intubation Method: orotracheal Tube Size: 8.00 Medications: Etomidate, Succinylcholine Positive End Tide CO2: Yes Breath Sounds after Intubation: bilateral-equal Intubation Complications: no complications AICHA HAYDEN May 20, 2020 08:40
[2020-05-20 08:41] LABS: ABG BASE EXCESS -2.7 MMOL/L (-2.5-2.5); ABG OXYGEN SATURATION 98 % (94-100); ABG PCO2 33 MMHG (35-45); ABG PH 7.42 (7.37-7.43); ABG PO2 239 MMHG (79-93); ABG TCO2 21.9 MMOL/L (21.0-31.0)
[2020-05-20 08:42] LABS: INSPIRED O2 70%; PATIENT TEMP 37.7; VENTILATOR YES
[2020-05-20] MEDS: MAGNESIUM 1 GM/100 ML IVPB 100 ML IV SCH (08:46)
[2020-05-20] MEDS: AZITHROMYCIN INJECTION 500 MG in NS (IVPB) 250 ML IV SCH (09:40)
[2020-05-20] MEDS: DexMEDEtomidine 250 ML DRIP 250 ML IV SCH ×2 (09:40→19:31)
[2020-05-20] MEDS: MEROPENEM 500 MG/SWFI 10 ML IV PUSH IV SCH ×6 (09:40→23:25)
[2020-05-20] MEDS: PANTOPRAZOLE 40 MG (PROTONIX) VIAL IV SCH (09:40)
[2020-05-20] MEDS: ASPIRIN 81 MG CHEW (CHILDREN'S ASA) PO SCH (10:24)
[2020-05-20] MEDS: fentaNYL INJECTION 1,250 MCG in NS (IVPB) 250 ML IV SCH (10:33)
--- NOTE | 2020-05-20 11:12 | Occ Therapy Progress Note ---
Therapy Progress Note Pt newly on ventilator. Will follow. MANUEL GUY OT May 20, 2020 11:12
--- NOTE | 2020-05-20 11:17 | Physical Therapy Progress Note ---
Therapy Progress Note Patient still on vent. Will continue to follow. MAEVE DUMONT PT May 20, 2020 11:17
[2020-05-20] MEDS ORDERED: DEXTROSE 50% 50 ML (IMS) SYR ONE (11:34)
[2020-05-20] MEDS ORDERED: NS IV 1000 ML 1,000 ML ONE (11:37)
[2020-05-20] MEDS: PROPOFOL DRIP (ICU) 100 ML IV SCH ×2 (12:20→19:30)
--- NOTE | 2020-05-20 13:05 | Progress Note - Hospitalist ---
Subjective HPI/CC On Admission Date Seen by Provider: May 20, 2020 Time Seen by Provider: 09:00 Pt is a 55yoCF with a PMH of IDDMII, CKD, chronic pain, HTN who presented to the ER due to right sided chest pain. She states she started feeling poorly a couple of days ago and it worsened last night. It is made worse by deep breaths and with any movement. She was unaware she had a fever until arrival to the ER. She was found to have a leukocytosis as well and was admitted for sepsis from presumed pneumonia. This morning she states she is still not feeling well and can tell she has a fever still. I checked her temperature and it was 38.8. She denies any sick contacts but has been in the hospital and at multiple doctors offices recently to obtain care. Subjective/Events-last exam Patient being managed by the ICU overnight developed progressive hypoxemia with mixed respiratory and metabolic acidosis. She underwent uneventful mechanical ventilation on Diprovan is sedated breathing easily last ABG revealing oxygen over 200 allowing progressive decrease in oxygenation currently 45 percent with saturations 94-96 percent. Mother at the bedside. Focused Exam Lactate Level 05/18/20 05:13: Lactic Acid Level 0.92 05/20/20 07:20: Objective Exam Vital Signs Vital Signs Date Time Temp Pulse Resp B/P (MAP) Pulse Ox O2 Delivery O2 Flow Rate FiO2 05/20/20 12:20 70 117/63 05/20/20 12:00 32 98 NIV Bilevel 50.00 05/20/20 12:00 37.3 05/20/20 09:57 21 Capillary Refill : Greater Than 3 Seconds General Appearance: No Apparent Distress Respiratory: Chest Non Tender, Lungs Clear, Normal Breath Sounds, No Accessory Muscle Use, No Respiratory Distress, Other (Sedated on mechanical ventilation) Cardiovascular: Regular Rate, Rhythm, No Edema, No Gallop, No JVD, No Murmur, Normal Peripheral Pulses Gastrointestinal: Normal Bowel Sounds, No Organomegaly, No Pulsatile Mass, Non Tender, Soft Extremity: Other (1+ pedal and upper extremity edema noted. The left lower extremity is warm with 2+ dorsalis pedis pulses. The right foot is slightly cool it is not pallorous capillary refill is 3-4 seconds and are not able to appreciate dorsalis pedis or posterior tibial pulses. No purpura is noted there is no reaction to movement of the right lower extremity is unremarkable the calf is not indurated nor erythematous.) Results/Procedures Lab Laboratory Tests 05/20/20 04:07 Patient resulted labs reviewed. Imaging: Reviewed Imaging Report Assessment/Plan Assessment and Plan Assess & Plan/Chief Complaint 1. Presumed pneumonia with progressive respiratory failure requiring mechanical intubation with stabilization respiratory status improving acidosis and signif icant improved oxygenation status at rest today consider sedation vacation starting tomorrow but would confer with eICU. 2. Acute on chronic renal insufficiency aggravated by likely underlying sepsis and type II diabetes mellitus. 3. Extensive smoking history suspect underlying COPD. 4. There is evidence for arterial insufficiency of the right lower extremity there are no overt signs to suggest that it is limited threatening at this time nor is there likely underlying dry gangrene but suspected peripheral vascular disease is more likely. We'll continue to monitor and I discussed my concerns with the nurse and the need to check it for any signs of increasing coolness or pallor. Overall prognosis remains poor which was discussed with her mother at the bedside. Continue broad-spectrum antibiotics. Critical Care Critically Ill Patient Clinical Quality Measures AMI/AHF: ASA po Prior to arrival: No DVT/VTE Risk/Contraindication: Risk Factor Score Per Nursin RFS Level Per Nursing on Admit: 4+=Very High JAVY DURHAM MD May 20, 2020 13:05
[2020-05-20] MEDS: DEXTROSE 50% 50 ML (IMS) SYR IV PRN (14:11)
[2020-05-20] MEDS: SODIUM BICARBONATE 8.4% VIAL 100 MEQ in D5 1/2 NS 1000 ML IV SOLUTION 1,000 ML IV SCH (15:32)
--- NOTE | 2020-05-20 15:40 | NUR ---
PT HAS TWO CONSECUTIVE FSBS LESS THAN 60 DESPITE ADMINISTRATION OF D50. E-ICU PROVIDER CALLED THIS RN AND ORDERS OBTAINED TO START TUBE FEEDINGS AND CHANGE BICARB TO D51/2NS TO HELP HYPOGLYCEMIA. THIS RN HAS UPDATED PTS DAUGHTER, CLARE OF PATIENTS CONDITION VIA TELEPHONE.
[2020-05-20] MEDS: ACETAMINOPHEN 325 MG TABLET PO PRN (16:39)
[2020-05-20] MEDS: ENOXAPARIN 80 MG/0.8 ML (LOVENOX) SYR SC SCH (20:36)
--- NOTE | 2020-05-20 20:39 | NUR ---
Glucose 97 reported to E ICU. Ordered to hold scheduled 18u Levemir dose for 2099.
[2020-05-21] VITALS (31 sets, daily range): BP systolic 92–148; BP diastolic 55–82
[2020-05-21] MEDS: SODIUM BICARBONATE 8.4% VIAL 100 MEQ in D5 1/2 NS 1000 ML IV SOLUTION 1,000 ML IV SCH ×3 (01:21→23:48)
[2020-05-21] MEDS: PROPOFOL DRIP (ICU) 100 ML IV SCH ×4 (02:32→20:00)
[2020-05-21 02:50] LABS: BASOPHILS % (AUTO) 0 % (0-10); EOSINOPHILS # (AUTO) 0.4 10^3/uL (0.0-0.3); EOSINOPHILS % (AUTO) 3 % (0-10); HEMATOCRIT 26 % (35-52); HEMOGLOBIN 8.4 G/DL (11.5-16.0); LYMPHOCYTES # (AUTO) 1.1 X 10^3 (1.0-4.0); LYMPHOCYTES % (AUTO) 9 % (12-44); MEAN CORPUSCULAR HEMOGLOBIN 30 PG (25-34); MEAN CORPUSCULAR HGB CONC 33 G/DL (32-36); MEAN CORPUSCULAR VOLUME 92 FL (80-99); MEAN PLATELET VOLUME 10.7 FL (7.4-10.4); MONOCYTES # (AUTO) 0.4 X 10^3 (0.0-1.0); MONOCYTES % (AUTO) 3 % (0-12); NEUTROPHILS # (AUTO) 11.3 X 10^3 (1.8-7.8); NEUTROPHILS % (AUTO) 85 % (42-75); PLATELET COUNT 253 10^3/uL (130-400); RED CELL DISTRIBUTION WIDTH 14.4 % (10.0-14.5); WHITE BLOOD COUNT 13.2 10^3/uL (4.3-11.0)
[2020-05-21 02:51] LABS: ABG BASE EXCESS 0.6 MMOL/L (-2.5-2.5); ABG OXYGEN SATURATION 92 % (94-100); ABG PCO2 36 MMHG (35-45); ABG PH 7.45 (7.37-7.43); ABG PO2 69 MMHG (79-93)
[2020-05-21 02:53] LABS: ALLENS TEST POSITIVE; INSPIRED O2 21; PATIENT TEMP 38.3; VENTILATOR YES
[2020-05-21] MEDS: RT-ALBUTEROL INHALER HFA (VENTOLIN HFA) 8 GM IH SCH ×4 (03:03→21:03)
[2020-05-21] MEDS: fentaNYL INJECTION 1,250 MCG in NS (IVPB) 250 ML IV SCH ×2 (03:03→20:06)
[2020-05-21 03:11] LABS: POTASSIUM 3.7 MMOL/L (3.6-5.0)
[2020-05-21 03:12] LABS: CALCIUM 7.9 MG/DL (8.5-10.1)
[2020-05-21 03:16] LABS: CREATININE SERUM 2.25 MG/DL (0.60-1.30); PHOSPHORUS 3.6 MG/DL (2.3-4.7)
[2020-05-21 03:19] LABS: MAGNESIUM 1.8 MG/DL (1.6-2.4)
[2020-05-21] MEDS: KCL 20 MEQ TAB (K-DUR) PO SCH (03:39)
[2020-05-21] MEDS: POTASSIUM CL 10MEQ/50ML IVPB 50 ML IV SCH (03:39)
[2020-05-21] MEDS: MAGNESIUM 1 GM/100 ML IVPB 100 ML IV SCH (03:39)
[2020-05-21] MEDS: inSUlin ASPART (NovoLOG) 1 UNIT/0.01 ML (CHARGE PER UNIT) SC SCH ×4 (03:40→23:35)
[2020-05-21] MEDS: ACETAMINOPHEN 325 MG TABLET PO PRN (04:44)
[2020-05-21] MEDS: meTOprolol 5 MG/5 ML (LOPRESSOR) VIAL IV SCH ×4 (05:14→23:47)
--- NOTE | 2020-05-21 07:25 | Diagnostic Imaging Report ---
INDICATION: Shortness of breath. Comparison is made with prior examination from 05/20/2020. FINDINGS: There is a right upper lobe and right perihilar infiltrate. The heart size is normal. The lines and tubes are in satisfactory position. There is no pleural effusion or pneumothorax. Mediastinum is unremarkable. IMPRESSION: Right upper lobe and right perihilar infiltrate suspect for pneumonia. Dictated by: Dictated on workstation # [id number]
[2020-05-21] MEDS: DexMEDEtomidine 250 ML DRIP 250 ML IV SCH ×2 (08:47→20:01)
[2020-05-21] MEDS: PANTOPRAZOLE 40 MG (PROTONIX) VIAL IV SCH (09:14)
[2020-05-21] MEDS: MEROPENEM 500 MG/SWFI 10 ML IV PUSH IV SCH ×6 (09:14→23:48)
[2020-05-21] MEDS: AZITHROMYCIN INJECTION 500 MG in NS (IVPB) 250 ML IV SCH (09:15)
[2020-05-21] MEDS: ASPIRIN 81 MG CHEW (CHILDREN'S ASA) PO SCH (09:15)
[2020-05-21] MEDS ORDERED: ETOMIDATE IV SOLN 20 MG/10 ML VIAL IV ONE (10:14)
[2020-05-21] MEDS ORDERED: SUCCINYLCHOLINE INJ 100 MG/5 ML SYR INJ ONE (10:14)
--- NOTE | 2020-05-21 12:29 | Progress Note - Hospitalist ---
Subjective HPI/CC On Admission Date Seen by Provider: May 21, 2020 Time Seen by Provider: 08:15 Pt is a 55yoCF with a PMH of IDDMII, CKD, chronic pain, HTN who presented to the ER due to right sided chest pain. She states she started feeling poorly a couple of days ago and it worsened last night. It is made worse by deep breaths and with any movement. She was unaware she had a fever until arrival to the ER. She was found to have a leukocytosis as well and was admitted for sepsis from presumed pneumonia. This morning she states she is still not feeling well and can tell she has a fever still. I checked her temperature and it was 38.8. She denies any sick contacts but has been in the hospital and at multiple doctors offices recently to obtain care. Subjective/Events-last exam Patient sedated on vent appears to be in no acute distress. Nursing staff do report that with sedation vacation cutting back on different than her heart rate and blood pressure do go up significantly. Focused Exam Lactate Level 05/20/20 11:50: Lactic Acid Level 1.13 Objective Exam Vital Signs Vital Signs Date Time Temp Pulse Resp B/P (MAP) Pulse Ox O2 Delivery O2 Flow Rate FiO2 05/21/20 11:22 91 Mechanical Ventilator 21 05/21/20 11:00 74 30 140/79 (99) 21.00 05/21/20 08:00 36.7 Capillary Refill : Less Than 3 Seconds General Appearance: No Apparent Distress Respiratory: Other (Coarse breath sounds noted with no wheezing few fine basilar rales no wheezing appreciated ventilating easily) Cardiovascular: Regular Rate, Rhythm, No Edema, No Gallop, No JVD, No Murmur Gastrointestinal: Normal Bowel Sounds, No Organomegaly, No Pulsatile Mass, Non Tender, Soft Neurologic/Psychiatric: Other (Right foot is warmer today and no mottling is noted still not able to appreciate dorsalis pedis or posterior tibial pulses there is no evidence for pallor left side normal) Results/Procedures Lab Laboratory Tests 05/21/20 02:30 Patient resulted labs reviewed. Imaging: Reviewed Imaging Report Assessment/Plan Assessment and Plan Assess & Plan/Chief Complaint 1. Presumed pneumonia with progressive respiratory failure requiring mechanical intubation with stabilization respiratory status improving acidosis and significant improved oxygenation status at rest today sedation vacation likely later today with attempt for pressure support trial but will confer with eICU. 2. Acute on chronic renal insufficiency aggravated by likely underlying sepsis and type II diabetes mellitus. 3. Extensive smoking history suspect underlying COPD. 4. There is evidence for arterial insufficiency of the right lower extremity there are no overt signs to suggest that it is limited threatening at this time nor is there likely underlying dry gangrene but suspected peripheral vascular disease is more likely. Of the right foot is warmer today with normal coloration and no mottling. Critical Care Critically Ill Patient Clinical Quality Measures AMI/AHF: ASA po Prior to arrival: No DVT/VTE Risk/Contraindication: Risk Factor Score Per Nursin RFS Level Per Nursing on Admit: 4+=Very High JAVY DURHAM MD May 21, 2020 12:29
--- NOTE | 2020-05-21 12:45 | Diagnostic Imaging Report ---
PROCEDURE: CT chest, abdomen, and pelvis without contrast. TECHNIQUE: Multiple contiguous axial images were obtained through the chest, abdomen, and pelvis without the use of intravenous contrast. Auto Exposure Controls were utilized during the CT exam to meet ALARA standards for radiation dose reduction. INDICATION: Fever of unknown origin. Pneumonia. Edema. Elevated D-dimer. CT CHEST: There is a right upper lobe infiltrate with some consolidation seen superiorly and laterally. There is minimal patchy infiltrate in the right middle lobe. Left upper lobe is clear. There is bibasilar discoid atelectasis. There are bilateral effusions layering to a depth of 1-2 cm on the left and 3-4 cm on the right. There is no mediastinal mass or adenopathy. No bony destructive lesions are seen. CT ABDOMEN AND PELVIS: Liver is normal. There is fluid around the gallbladder. The bile ducts are not dilated. The spleen, pancreas and adrenals are normal. The kidneys, ureters and bladder are normal. No acute bowel abnormality is seen. There is an IVC filter present just inferior to the renal vessels. There is calcification of the abdominal aorta with no aneurysmal dilatation. There is free fluid in the dependent portion of the pelvis. There is no acute bony abnormality. IMPRESSION: 1. Consolidated infiltrate in the right upper lobe consistent with pneumonia. There are bilateral effusions. 2. The gallbladder is distended with a thickened wall which may be secondary to cholecystitis. There is free fluid in the dependent portion of the pelvis, with no other acute abnormality seen in the abdomen and pelvis. Dictated by: Dictated on workstation # [id number]
[2020-05-21] MEDS: ENOXAPARIN 80 MG/0.8 ML (LOVENOX) SYR SC SCH (20:01)
[2020-05-22] VITALS (26 sets, daily range): BP systolic 85–178; BP diastolic 55–95
[2020-05-22] MEDS: RT-ALBUTEROL INHALER HFA (VENTOLIN HFA) 8 GM IH SCH ×4 (02:24→20:13)
[2020-05-22 03:29] LABS: ABG BASE EXCESS 3.6 MMOL/L (-2.5-2.5); ABG OXYGEN SATURATION 93 % (94-100); ABG PCO2 35 MMHG (35-45); ABG PH 7.49 (7.37-7.43); ABG PO2 65 MMHG (79-93); ABG TCO2 27.9 MMOL/L (21.0-31.0); BASOPHILS % (AUTO) 0 % (0-10); EOSINOPHILS # (AUTO) 0.3 10^3/uL (0.0-0.3); EOSINOPHILS % (AUTO) 4 % (0-10); HEMATOCRIT 25 % (35-52); HEMOGLOBIN 8.2 G/DL (11.5-16.0); LYMPHOCYTES # (AUTO) 1.9 X 10^3 (1.0-4.0); LYMPHOCYTES % (AUTO) 21 % (12-44); MEAN CORPUSCULAR HEMOGLOBIN 30 PG (25-34); MEAN CORPUSCULAR HGB CONC 32 G/DL (32-36); MEAN CORPUSCULAR VOLUME 93 FL (80-99); MONOCYTES # (AUTO) 0.5 X 10^3 (0.0-1.0); MONOCYTES % (AUTO) 6 % (0-12); NEUTROPHILS # (AUTO) 6.2 X 10^3 (1.8-7.8); NEUTROPHILS % (AUTO) 70 % (42-75); PLATELET COUNT 298 10^3/uL (130-400); RED CELL DISTRIBUTION WIDTH 14.4 % (10.0-14.5); WHITE BLOOD COUNT 8.9 10^3/uL (4.3-11.0)
[2020-05-22 03:31] LABS: ALLENS TEST POSITIVE; INSPIRED O2 21; PATIENT TEMP 36.8; VENTILATOR YES
[2020-05-22 03:58] LABS: POTASSIUM 3.1 MMOL/L (3.6-5.0)
[2020-05-22 04:00] LABS: CALCIUM 7.8 MG/DL (8.5-10.1)
[2020-05-22] MEDS: PROPOFOL DRIP (ICU) 100 ML IV SCH (04:03)
[2020-05-22 04:04] LABS: CREATININE SERUM 2.16 MG/DL (0.60-1.30); PHOSPHORUS 3.6 MG/DL (2.3-4.7)
[2020-05-22 04:07] LABS: MAGNESIUM 1.9 MG/DL (1.6-2.4)
[2020-05-22] MEDS: DEXTROSE 50% 50 ML (IMS) SYR IV PRN ×2 (04:18→11:35)
[2020-05-22] MEDS: KCL 20 MEQ TAB (K-DUR) PO SCH (04:35)
[2020-05-22] MEDS: inSUlin ASPART (NovoLOG) 1 UNIT/0.01 ML (CHARGE PER UNIT) SC SCH ×3 (04:35→18:26)
[2020-05-22] MEDS: POTASSIUM CL 10MEQ/50ML IVPB 50 ML IV SCH ×6 (04:35→21:40)
[2020-05-22] MEDS: MAGNESIUM 1 GM/100 ML IVPB 100 ML IV SCH (04:35)
--- NOTE | 2020-05-22 04:51 | Pulmonary Progress Note ---
Subjective Time Seen by a Provider: 04:50 Subjective/Events-last exam Pt is sedated on vent Sepsis Event Evaluation Height, Weight, BMI Height: 5'5.00" Weight: 151lbs. 1.0oz. 68.649634hm; 26.10 BMI Method:Stated Focused Exam Lactate Level 05/20/20 11:50: Lactic Acid Level 1.13 Exam Exam Vital Signs Date Time Temp Pulse Resp B/P (MAP) Pulse Ox O2 Delivery O2 Flow Rate FiO2 05/22/20 04:03 124/63 05/22/20 03:45 Mechanical Ventilator 40.00 05/22/20 03:30 91 Mechanical Ventilator 21 05/22/20 03:20 37.1 Mechanical Ventilator 21.00 05/22/20 03:00 73 28 111/55 (73) 91 Mechanical Ventilator 21.00 05/22/20 02:24 75 29 100 21 05/22/20 02:00 67 20 101/59 (73) 95 Mechanical Ventilator 21.00 05/22/20 01:00 68 05/22/20 01:00 68 26 108/59 (75) 95 Mechanical Ventilator 21.00 05/22/20 00:00 70 28 106/61 (76) 95 Mechanical Ventilator 21.00 05/21/20 23:55 94 Mechanical Ventilator 21 05/21/20 23:30 37.9 71 26 105/58 (74) 95 Mechanical Ventilator 21.00 05/21/20 23:00 70 26 106/58 (74) 95 Mechanical Ventilator 21.00 05/21/20 22:00 71 28 107/59 (75) 94 Mechanical Ventilator 21.00 05/21/20 21:11 Mechanical Ventilator 21.00 05/21/20 21:04 75 29 100 30 05/21/20 21:00 73 26 100/56 (71) 99 Mechanical Ventilator 30.00 05/21/20 20:01 64 99/53 05/21/20 20:00 64 16 100/55 (70) 99 Mechanical Ventilator 30.00 05/21/20 20:00 64 99/53 05/21/20 19:37 36.9 05/21/20 19:15 98 Mechanical Ventilator 30 05/21/20 19:00 64 05/21/20 19:00 36.9 64 28 106/59 (75) 98 Mechanical Ventilator 30.00 05/21/20 18:35 63 27 98 30 05/21/20 18:00 64 16 114/60 (78) 98 Mechanical Ventilator 21.00 05/21/20 17:00 65 17 120/64 (82) 99 Mechanical Ventilator 21.00 05/21/20 16:00 36.5 20 16:00 67 5 124/64 (84) 98 Mechanical Ventilator 21.00 05/21/20 15:27 94 Mechanical Ventilator 21 05/21/20 15:00 69 13 132/70 (90) 99 Mechanical Ventilator 21.00 05/21/20 14:52 68 137/72 05/21/20 14:31 68 30 99 35 05/21/20 14:00 67 28 143/73 (96) 99 Mechanical Ventilator 21.00 05/21/20 13:01 70 05/21/20 13:00 70 10 142/74 (96) 100 Mechanical Ventilator 21.00 05/21/20 12:00 36.7 05/21/20 12:00 71 28 146/82 (103) 100 Mechanical Ventilator 21.00 05/21/20 11:22 91 Mechanical Ventilator 21 05/21/20 11:00 74 30 140/79 (99) 100 Mechanical Ventilator 21.00 05/21/20 10:40 75 31 100 35 05/21/20 10:23 82 131/79 05/21/20 10:00 82 22 131/79 (96) 100 Mechanical Ventilator 21.00 05/21/20 09:00 75 28 148/82 (104) 100 Mechanical Ventilator 21.00 05/21/20 08:47 80 134/76 05/21/20 08:00 80 8 132/78 (96) 99 Mechanical Ventilator 21.00 05/21/20 08:00 91 Mechanical Ventilator 21 05/21/20 08:00 36.7 05/21/20 07:26 80 31 99 35 05/21/20 07:00 77 05/21/20 07:00 77 30 133/72 (92) 93 Mechanical Ventilator 21.00 05/21/20 06:45 38.7 05/21/20 06:00 79 27 139/75 (96) 92 Mechanical Ventilator 21.00 05/21/20 05:30 38.9 05/21/20 05:14 38.9 05/21/20 05:00 83 25 132/75 (94) 91 Mechanical Ventilator 21.00 I & O 05/22/20 07:00 Intake Total 3950 ml Output Total 425 ml Balance 3525 ml Height & Weight Height: 5'5.00" Weight: 151lbs. 1.0oz. 68.223885db; 26.10 BMI Method:Stated General Appearance: No Apparent Distress HEENT: PERRL/EOMI, Moist Mucous Membranes; No Scleral Icterus (L), No Scleral Icterus (R) Neck: Normal Inspection, Supple; No Thyromegaly Respiratory: Other (Coarse breath sounds noted with no wheezing few fine basilar rales no wheezing appreciated ventilating easily) Cardiovascular: Regular Rate, Rhythm, No Edema, No Gallop, No JVD, No Murmur Capillary Refill: Less Than 3 Seconds Gastrointestinal: non tender, soft Extremity: Other (1+ pedal and upper extremity edema noted. The left lower extremity is warm with 2+ dorsalis pedis pulses. The right foot is slightly cool it is not pallorous capillary refill is 3-4 seconds and are not able to appreciate dorsalis pedis or posterior tibial pulses. No purpura is noted there is no reaction to movement of the right lower extremity is unremarkable the calf is not indurated nor erythematous.) Neurologic/Psychiatric: Other (Right foot is warmer today and no mottling is noted still not able to appreciate dorsalis pedis or posterior tibial pulses there is no evidence for pallor left side normal) Skin: Normal Color, Warm/Dry Results Lab Laboratory Tests 05/21/20 02:30 05/22/20 03:15 Assessment/Plan Assessment/Plan Acute respiratory failure Tm 38.9 - Intubated on 05/20 -Will do weaning trail -COVID is neg x -Check Bilateral dopplers Acute renal failure -Change IVF to LR at 125 -Currently on Bicarb gtt and pt is alkalotic -D/C bicarb gtt Hypokalemia -replace Severe Sepsis with PNA - Merrem and azithromycin -Eraxis Metabolic acidosis -Recheck LA Anemia -Monitor LULY on CKD Stage 3 Continue IVF baseline creatinine around 1.6 IDDMII HTN HLD BLESSING SCHULTZ DO May 22, 2020 04:51
[2020-05-22] MEDS: meTOprolol 5 MG/5 ML (LOPRESSOR) VIAL IV SCH ×4 (05:23→23:45)
[2020-05-22] MEDS ORDERED: LACTATED RINGERS 1,000 ML IV SCH (06:00)
--- NOTE | 2020-05-22 06:45 | NUR ---
Fentanyl drip dc'd per Dr Winkler order. Wasted remaining Fentanyl with Monica Palomares RN 175ml.
--- NOTE | 2020-05-22 08:20 | Diagnostic Imaging Report ---
Indication: Shortness of breath Portable chest 3:23 AM ET tube projects over the trachea. NG tube enters the stomach. Right jugular central line tip projects over the SVC. There is infiltrate in the right upper lobe. There may be some patchy infiltrate at the right lung base. Left lung is clear. IMPRESSION: Pneumonia in the right lung unchanged from previous day. Dictated by: Dictated on workstation # [id number]
--- NOTE | 2020-05-22 08:32 | Occ Therapy Progress Note ---
Therapy Progress Note Pt. continues to be sedated and on vent support. Will continue to monitor and evaluate when medically stable. 0832 LAUREANO SON OT May 22, 2020 08:32
[2020-05-22] MEDS: MEROPENEM 500 MG/SWFI 10 ML IV PUSH IV SCH ×6 (08:39→23:45)
[2020-05-22] MEDS: PANTOPRAZOLE 40 MG (PROTONIX) VIAL IV SCH (08:39)
[2020-05-22] MEDS: ASPIRIN 81 MG CHEW (CHILDREN'S ASA) PO SCH ×2 (08:40→09:30)
--- NOTE | 2020-05-22 08:45 | Diagnostic Imaging Report ---
PROCEDURE: US Venous Lower Ext Rashaun. TECHNIQUE: Multiple Real-time grayscale images were obtained over the lower extremities in various projections, bilaterally. Additional duplex Doppler and color Doppler images were also obtained. INDICATION: Elevated d-dimer. FINDINGS: There is no evidence of right or left lower extremity DVT. Both lower extremity deep venous systems demonstrate normal compressibility with normal response to augmentation and Valsalva. No fluid collection or mass is detected. IMPRESSION: No evidence of right or left lower extremity DVT. Dictated by: Dictated on workstation # [id number]
[2020-05-22] MEDS ORDERED: ANIDULAFUNGIN INJECTION 200 MG in NS (IVPB) 250 ML IV ONE (09:00)
[2020-05-22] MEDS: AZITHROMYCIN INJECTION 500 MG in NS (IVPB) 250 ML IV SCH (09:04)
--- NOTE | 2020-05-22 09:56 | Physical Therapy Evaluation ---
PT Evaluation-General Medical Diagnosis Admission Date May 16, 2020 at 18:35 Medical Diagnosis: Leukocytosis/Pleuritic CP Onset Date: May 16, 2020 Therapy Diagnosis Therapy Diagnosis: debility/weakness Height/Weight Height (Feet): 5 Height (Inches): 5.00 Weight (Pounds): 151 Weight (Ounces): 1.0 Precautions Precautions/Isolations: Fall Prevention, Standard Precautions Referral Physician: Mak Reason for Referral: Evaluation/Treatment Medical History Pertinent Medical History: DM, HTN, Renal Insufficiency, Rheumatoid Arthritis, Smoking Additional Medical History Personality disorder Current History ER secondary to CP Reviewed History: Yes Social History Home: Apartment Prior Prior Level of Function SCALE: Activities may be completed with or without assistive devices. 1-Plyopoeumq-gujkvop completes the activity by him/herself with no assistance from a helper. 5-Set-up or Clean-up Assistance-helper sets up or cleans up; patient completes activity. [place] assists only prior to or following the activity. 4-Supervision or Touching Assistance-helper provides verbal cues and/or touching/steadying and/or contact guard assistance as patient completes activi ty. Assistance may be provided throughout the activity or intermittently. 3-Partial/Moderate Assistance-helper does LESS THAN HALF the effort. [place] lifts, holds or supports trunk or limbs, but provides less than half the effort. 2-Substantial/Maximal Assistance-helper does MORE THAN HALF the effort. [place] lifts or holds trunk or limbs and provides more than half the effort. 4-Nujcvptzp-xvpbhl does ALL the effort. Patient does none of the effort to complete the activity. Or, the assistance of 2 or more helpers is required for the patient to complete the activity. If activity was not attempted, code reason: 7-Patient Refused. 9-Not Applicable-not attempted and the patient did not perform the activity before the current illness, exacerbation or injury. 10-Not Attempted due to Environmental Limitations-(lack of equipment, weather restraints, etc.). 88-Not Attempted due to Medical Conditions or Safety Concerns. Bed Mobility: 6 Transfers (B,C,W/C): 6 Gait: 6 Stairs: 6 Indoor Mobility (Ambulation): Independent Stairs: Independent Prior Devices Use: None PT Evaluation-Current Subjective Patient agrees to PT. Currently crying in pain with RN present to issue pain medication. Pain Numeric Pain Scale: 10-Worst Possible Pain Location: Soft Tissue Location Body Site: Generalized Pain Description: Acute Objective Patient Orientation: Person, Time, Situation Attachments: Oxygen, [place] Catheter, IV ROM/Strength ROM Lower Extremities bilateral LE WFL Strength Lower Extremities 3/5 grossly bilateral LE Integumentary/Posture Integumentary refer to nursing notes Bowel Incontinence: Yes Bladder Incontinence: [place]regon Cath Posture WFL Neuromuscular (Tone, Coordination, Reflexes) grossly intact Sensory Vision: Functional Hearing: Functional Sensation Right Lower Extremit: Intact Sensation Left Lower Extremity: Intact Transfers Roll Left to Right (QC): 3 Sit to Lying (QC): 3 Lying to Sitting/Side of Bed(Q: 3 Sit to Stand (QC): 3 Chair/Bwi-px-Ntezx Xfer(QC): 3 Gait Does the Patient Walk?: No and Walking Goal IS indicated Mode of Locomotion: Walk Anticipated Mode of Locomotion: Walk Balance Sitting Static: Normal Sitting Dynamic: Normal Standing Static: Fair Standing Dynamic: Fair Assessment/Needs 55 y.o. female, will benefit from skilled PT to address functional strength and mobility to improve current LOF to safely return to home at maximum LOF. Rehab Potential: Fair PT Fixture Designer Goals Skilled Nursing Goals PT Fixture Designer Goals Time Frame: Jun 17, 2020 Roll Left & Right (QC): 6 Sit to Lying (QC): 6 Lying-Sitting on Side/Bed(QC): 6 Sit to Stand (QC): 6 Chair/Pmw-ih-Vhrwg Xfer(QC): 6 Toilet Transfer (QC): 6 Does the Patient Walk: Yes Walk 10 feet (QC): 6 Walk 50ft with 2 Turns (QC): 6 Walk 150 ft (QC): 6 PT Plan Problem List Problem List: Activity Tolerance, Functional Strength, Safety, Balance, Gait, Transfer, Bed Mobility Treatment/Plan Treatment Plan: Continue Plan of Care Treatment Plan: Bed Mobility, Education, Functional Activity Timo, Functional Strength, Gait, Safety, Therapeutic Exercise, Transfers Treatment Duration: Jun 17, 2020 Frequency: 6 times per week Estimated Hrs Per Day: .25 hour per day (to .5) Patient and/or Family Agrees t: Yes Time/GCodes Time In: 833 Time Out: 849 Total Billed Treatment Time: 16 Total Billed Treatment 1 visit EVMod 16 min SHANIKA SHEA PT May 22, 2020 09:56
--- NOTE | 2020-05-22 10:29 | NUR ---
0810 THIS RN INTO PT'S ROOM DUE TO ALARMING OF VENTILATOR, UPON ARRIVAL TO ROOM PT HAVE EXTUBATED SELF. THIS RN APPLIED 02 VIA NC AT 2 LITERS AND SUCTIONED MOUTH AND NOTIFIED RT, RESTRAINTS REMOVED. PT AWAKE, ALERT WAS ABLE TO FOLLOW COMMANDS. BED RAILS UP X 4 AND BED ALARM ON. CALL LIGHT AND OTHER PERSONAL ITEMS WITHIN REACH WILL CONTINUE TO MONITOR. Addendum: 05/22/20 at 1032 by SANDY HORTON RN DR SCHULTZ ON FLOOR AND NOTIFIED BY Wendy LARA RN DIRECTOR ICU.
--- NOTE | 2020-05-22 11:30 | NUR ---
PT C/O OF PAIN STATES " I HURT ALL OVER," DR PA NOTIFIED AND NEW ORDERS RECEIVED. SEE ORDER HX. DR PA ALSO NOTIFIED THAT PT FAILED DYSPHAGIA SWALLOW STUDY AT BEDSIDE.
[2020-05-22] MEDS: fentaNYL INJECTION 100 MCG/2 ML AMP IVP PRN ×4 (11:45→23:46)
--- NOTE | 2020-05-22 11:45 | Progress Note ---
Subjective Subjective/Events-last exam Patient self extubated this AM. Sitting up in chair. States that she is having pain all over her body. Review of Systems General: Fatigue Pulmonary: Dyspnea, Cough Cardiovascular: No: Chest Pain, Palpitations, Edema Gastrointestinal: No: Nausea, Vomiting, Abdominal Pain Neurological: Weakness, Confusion Focused Exam Lactate Level 05/20/20 11:50: Lactic Acid Level 1.13 Objective Exam Last Set of Vital Signs Vital Signs Date Time Temp Pulse Resp B/P (MAP) Pulse Ox O2 Delivery O2 Flow Rate FiO2 05/22/20 10:47 37.1 99 96 28 05/22/20 10:00 23 Nasal Cannula 2.00 Capillary Refill : Less Than 3 Seconds I&O Intake and Output 05/22/20 00:00 Intake Total 5180 ml Output Total 645 ml Balance 4535 ml Intake Oral 0 ml IV Total 4725 ml Tube Feeding 325 ml Other 130 ml Output Urine Total 645 ml # Bowel Movements 1 General: Alert Lungs: Other (diminished breath sounds, increased work of breathing at rest, + wheezing ) Heart: Regular Rate, No Murmurs Abdomen: Normal Bowel Sounds, Soft, No Tenderness, No Masses Extremities: No Edema, No Tenderness/Swelling Neuro: Sensation Intact, Cranial Nerves 3-12 NL Psych/Mental Status: Mental Status NL, Mood NL Results/Procedures Lab Laboratory Tests 05/21/20 11:50: Glucometer 374H 05/21/20 17:31: Glucometer 335H 05/21/20 20:40: Glucometer 220H 05/21/20 23:33: Glucometer 110 05/22/20 03:15: White Blood Count 8.9, Red Blood Count 2.72L, Hemoglobin 8.2L, Hematocrit 25L, M raj Corpuscular Volume 93, Mean Corpuscular Hemoglobin 30, Mean Corpuscular Hemoglobin Concent 32, Red Cell Distribution Width 14.4, Platelet Count 298, Mean Platelet Volume 11.0H, Neutrophils (%) (Auto) 70, Lymphocytes (%) (Auto) 21, Monocytes (%) (Auto) 6, Eosinophils (%) (Auto) 4, Basophils (%) (Auto) 0, Neutrophils # (Auto) 6.2, Lymphocytes # (Auto) 1.9, Monocytes # (Auto) 0.5, Eosinophils # (Auto) 0.3, Basophils # (Auto) 0.0, Blood Gas Puncture Site RIGHT RADIAL, Blood Gas Patient Temperature 36.8, Arterial Blood pH 7.49H, Arterial Blood Partial Pressure CO2 35, Arterial Blood Partial Pressure O2 65L, Arterial Blood HCO3 27, Arterial Blood Total CO2 27.9, Arterial Blood Oxygen Saturation 93L, Arterial Blood Base Excess 3.6H, Long Test POSITIVE, Blood Gas Ventilator Setting YES, Blood Gas Inspired Oxygen 21, Sodium Level 139, Potassium Level 3.1L, Chloride Level 104, Carbon Dioxide Level 23, Anion Gap 12, Blood Urea Nitrogen 35H, Creatinine 2.16H, Estimat Glomerular Filtration Rate 23, BUN/Creatinine Ratio 16, Glucose Level 32*L, Calcium Level 7.8L, Phosphorus Level 3.6, Magnesium Level 1.9, B-Type Natriuretic Peptide 357.3H, Procalcitonin 12.26H 05/22/20 11:30: Glucometer 61L Microbiology 05/20/20 Gram Stain - Final, Complete 05/20/20 Sputum Culture - Final, Complete YEAST 05/19/20 Blood Culture - Preliminary, Resulted No growth Assessment/Plan Assessment/Plan (1) Severe sepsis Status: Acute Assessment & Plan: 05/22: Vitals improved, labs improving, Continue IV antibiotics (2) Acute respiratory failure Status: Acute Assessment & Plan: 05/22: Self extubated this AM, continue to monitor Qualifiers: Qualified Codes: J96.01 - Acute respiratory failure with hypoxia (3) Altered mental status Status: Acute Qualifiers: Qualified Codes: R41.82 - Altered mental status, unspecified (4) Aspiration pneumonia Status: Acute Assessment & Plan: 05/22: Continue IV antibiotcs, Will titrate oxygen as tolerated Qualifiers: Qualified Codes: J69.0 - Pneumonitis due to inhalation of food and vomit (5) Acute kidney injury superimposed on chronic kidney disease Status: Acute Assessment & Plan: 05/22: Continue IVFs, renally dose medications (6) Insulin dependent diabetes mellitus Status: Chronic (7) Hypokalemia Status: Acute Assessment & Plan: 05/22: replaced, repeat BMP in AM (8) DVT prophylaxis Status: Acute Assessment & Plan: - Lovenox Clinical Quality Measures AMI/AHF: ASA po Prior to arrival: No DVT/VTE Risk/Contraindication: Risk Factor Score Per Nursin RFS Level Per Nursing on Admit: 4+=Very High MILO PA MD 6, 2020 11:44
[2020-05-22] MEDS: D5 NS 1000 ML IV SOLUTION 1,000 ML IV SCH ×3 (12:20→23:46)
--- NOTE | 2020-05-22 13:58 | Speech Therapy Progress Note ---
Therapy Progress Note Order was acknowledged by director dietetics department. There is no speech therapy services available this date. Per policy, nurse bedside swallow was performed. Patient was able to pass swallow with neck placed into a flexed position. Nursing was instructed to position patient into cervical flexion when giving food or liquid. Speech modified barium swallow study to be performed 05/23/20. RYAN GRAY PT May 22, 2020 13:58
[2020-05-22] MEDS: ACETAMINOPHEN 650 MG SUPP (TYLENOL) PR PRN (15:33)
[2020-05-22] MEDS: LORazepam 0.5 MG (ATIVAN) TABLET PO PRN (20:42)
[2020-05-22] MEDS: ENOXAPARIN 40 MG/0.4 ML (LOVENOX) SYR SC SCH (20:42)
[2020-05-22] MEDS: CYCLOBENZAPRINE 10 MG (FLEXERIL) TAB PO PRN (22:48)
[2020-05-23] VITALS (13 sets, daily range): BP systolic 131–180; BP diastolic 63–98
[2020-05-23] MEDS: inSUlin ASPART (NovoLOG) 1 UNIT/0.01 ML (CHARGE PER UNIT) SC SCH ×4 (00:13→17:43)
[2020-05-23] MEDS: POTASSIUM CL 10MEQ/50ML IVPB 50 ML IV SCH ×7 (02:13→14:58)
[2020-05-23] MEDS: KCL 20 MEQ TAB (K-DUR) PO SCH (02:14)
[2020-05-23] MEDS: MAGNESIUM 1 GM/100 ML IVPB 100 ML IV SCH (02:14)
[2020-05-23] MEDS: fentaNYL INJECTION 100 MCG/2 ML AMP IVP PRN ×4 (02:52→20:02)
[2020-05-23 03:34] LABS: BASOPHILS % (AUTO) 0 % (0-10); EOSINOPHILS # (AUTO) 0.4 10^3/uL (0.0-0.3); EOSINOPHILS % (AUTO) 4 % (0-10); HEMATOCRIT 28 % (35-52); HEMOGLOBIN 9.1 G/DL (11.5-16.0); LYMPHOCYTES # (AUTO) 1.6 X 10^3 (1.0-4.0); LYMPHOCYTES % (AUTO) 17 % (12-44); MEAN CORPUSCULAR HEMOGLOBIN 30 PG (25-34); MEAN CORPUSCULAR HGB CONC 32 G/DL (32-36); MEAN CORPUSCULAR VOLUME 94 FL (80-99); MEAN PLATELET VOLUME 10.4 FL (7.4-10.4); MONOCYTES # (AUTO) 0.6 X 10^3 (0.0-1.0); MONOCYTES % (AUTO) 7 % (0-12); NEUTROPHILS # (AUTO) 6.8 X 10^3 (1.8-7.8); NEUTROPHILS % (AUTO) 72 % (42-75); PLATELET COUNT 419 10^3/uL (130-400); RED CELL DISTRIBUTION WIDTH 14.5 % (10.0-14.5); WHITE BLOOD COUNT 9.3 10^3/uL (4.3-11.0)
[2020-05-23 03:50] LABS: CALCIUM 8.1 MG/DL (8.5-10.1)
[2020-05-23 03:54] LABS: CREATININE SERUM 1.85 MG/DL (0.60-1.30); PHOSPHORUS 2.6 MG/DL (2.3-4.7)
[2020-05-23 03:57] LABS: MAGNESIUM 1.8 MG/DL (1.6-2.4)
--- NOTE | 2020-05-23 05:00 | Pulmonary Progress Note ---
Subjective Time Seen by a Provider: 04:54 Subjective/Events-last exam PT extubated yesterday. Appears to be doing well off vent. Sepsis Event Evaluation Height, Weight, BMI Height: 5'5.00" Weight: 151lbs. 1.0oz. [id number]; 26.10 BMI Method:Stated Focused Exam Lactate Level 05/20/20 11:50: Lactic Acid Level 1.13 Exam Exam Vital Signs Date Time Temp Pulse Resp B/P (MAP) Pulse Ox O2 Delivery O2 Flow Rate FiO2 05/23/20 04:00 97 Room Air 05/23/20 02:13 95 Room Air 05/23/20 02:00 98 23 158/98 (118) 92 Room Air 05/23/20 01:00 100 05/23/20 01:00 99 26 167/89 (115) 94 Room Air 05/23/20 00:00 98 20 180/88 (118) 96 Room Air 05/23/20 00:00 97 Room Air 05/22/20 23:59 36.6 05/22/20 23:00 110 24 167/77 (107) 94 Room Air 05/22/20 22:00 106 27 156/71 (99) 92 Room Air 05/22/20 21:01 37.4 104 98 05/22/20 21:00 112 27 178/95 (122) 94 Room Air 05/22/20 20:14 37.4 104 22 170/95 (120) 95 Room Air 05/22/20 20:13 98 Room Air 05/22/20 20:12 Room Air 05/22/20 20:00 96 Room Air 05/22/20 20:00 37.6 05/22/20 19:00 101 05/22/20 19:00 103 22 170/95 (120) 99 Nasal Cannula 2.00 05/22/20 18:00 92 24 173/83 (113) 95 Nasal Cannula 2.00 05/22/20 17:00 104 19 163/75 (104) 94 Nasal Cannula 2.00 05/22/20 16:19 95 Room Air 05/22/20 16:16 37.4 05/22/20 16:00 107 12 169/76 (107) 95 Nasal Cannula 2.00 05/22/20 16:00 37.8 05/22/20 15:33 37.8 05/22/20 15:00 107 12 171/78 (109) 94 Nasal Cannula 2.00 05/22/20 14:40 95 Room Air 05/22/20 14:00 97 13 113/80 (91) 94 Nasal Cannula 2.00 05/22/20 13:00 93 16 176/78 (110) 97 Nasal Cannula 2.00 05/22/20 12:34 Nasal Cannula 2.00 05/22/20 12:25 99 05/22/20 12:00 37.6 05/22/20 12:00 107 175/91 (119) 96 Nasal Cannula 2.00 05/22/20 10:47 37.1 99 96 28 05/22/20 10:00 98 23 95 Nasal Cannula 2.00 05/22/20 09:40 93 Nasal Cannula 2.00 05/22/20 09:00 80 19 135/71 (92) 95 Nasal Cannula 2.00 05/22/20 08:25 91 Mechanical Ventilator 21 05/22/20 08:22 Nasal Cannula 2.00 05/22/20 08:00 74 14 117/69 (85) 100 Mechanical Ventilator 40.00 05/22/20 07:12 72 25 96 05/22/20 07:00 69 05/22/20 07:00 66 26 124/67 (86) 99 Mechanical Ventilator 40.00 05/22/20 06:00 65 13 125/69 (87) 100 Mechanical Ventilator 40.00 05/22/20 05:00 67 22 119/64 (82) 100 Mechanical Ventilator 40.00 I & O 05/23/20 06:59 Intake Total 2130 ml Output Total 825 ml Balance 1305 ml Height & Weight Height: 5'5.00" Weight: 151lbs. 1.0oz. 68.261735jy; 26.10 BMI Method:Stated General Appearance: No Apparent Distress HEENT: PERRL/EOMI, Moist Mucous Membranes; No Scleral Icterus (L), No Scleral Icterus (R) Neck: Normal Inspection, Supple; No Thyromegaly Respiratory: Other (Coarse breath sounds noted with no wheezing few fine basilar rales no wheezing appreciated ventilating easily) Cardiovascular: Regular Rate, Rhythm, No Edema, No Gallop, No JVD, No Murmur Capillary Refill: Less Than 3 Seconds Gastrointestinal: non tender, soft Extremity: Other (1+ pedal and upper extremity edema noted. The left lower extremity is warm with 2+ dorsalis pedis pulses. The right foot is slightly cool it is not pallorous capillary refill is 3-4 seconds and are not able to appreciate dorsalis pedis or posterior tibial pulses. No purpura is noted there is no reaction to movement of the right lower extremity is unremarkable the calf is not indurated nor erythematous.) Neurologic/Psychiatric: Other (Right foot is warmer today and no mottling is noted still not able to appreciate dorsalis pedis or posterior tibial pulses there is no evidence for pallor left side normal) Skin: Normal Color, Warm/Dry Results Lab Laboratory Tests 05/22/20 03:15 05/23/20 02:40 Assessment/Plan Assessment/Plan Acute respiratory failure-- improving Extubated yesterday -COVID is neg x 2 -Check Bilateral dopplers RUL PNA -Will need repeat CT scan as out pt 8wks after discharge Acute renal failure - IVF LR at 125 Hypokalemia -replace Severe Sepsis with PNA - Currently on Merrem and azithromycin -Eraxis Metabolic acidosis -Recheck LA Anemia -Monitor LULY on CKD Stage 3 Continue IVF baseline creatinine around 1.6 IDDMII HTN HLD BLESSING SCHULTZ DO May 23, 2020 05:00
[2020-05-23] MEDS: meTOprolol 5 MG/5 ML (LOPRESSOR) VIAL IV SCH ×2 (06:16→11:29)
[2020-05-23] MEDS: RT-ALBUTEROL INHALER HFA (VENTOLIN HFA) 8 GM IH SCH ×3 (07:22→20:55)
[2020-05-23] MEDS: MEROPENEM 500 MG/SWFI 10 ML IV PUSH IV SCH ×8 (07:45→16:24)
--- NOTE | 2020-05-23 08:23 | Diagnostic Imaging Report ---
INDICATION: Post extubation, infiltrate. TECHNIQUE: Single view chest 3:26 AM. CORRELATION STUDY: 05/22/2020 FINDINGS: Interval extubation removal of nasogastric tube and right IJ central line. Heart size is stable. Extensive, dense infiltrate of the right upper lobe is present. While the overall severity of consolidation appears slightly diminished, the geographic area of infiltrate appears increased. IMPRESSION: 1. Interval extubation. 2. Persistent right upper lobe consolidation most compatible with pneumonia. The overall regional area of involvement appears slightly increased from prior. Dictated by: Dictated on workstation # [id number]
[2020-05-23] MEDS: PANTOPRAZOLE 40 MG (PROTONIX) VIAL IV SCH (08:54)
[2020-05-23] MEDS: AZITHROMYCIN INJECTION 500 MG in NS (IVPB) 250 ML IV SCH (08:54)
[2020-05-23] MEDS ORDERED: ANIDULAFUNGIN INJECTION 100 MG in NS (IVPB) 100 ML IV SCH (09:00)
--- NOTE | 2020-05-23 09:17 | NUR ---
PATIENT TO ROOM 413 VIA WHEELCHAIR ACCOMPANIED BY RN ABDULAZIZ WILLIAM. SINK MAKER MENDEL GAVE REPORT TO HINGING MACHINE OPERATOR BIBI WHO THEN PASSED REPORT TO THIS RN. VITALS TAKEN BY PCCT. PATIENT DENIES ANY NEEDS AT THIS TIME. WILL CONTINUE TO MONITOR.
--- NOTE | 2020-05-23 10:09 | Occupational Therapy Eval ---
OT Evaluation-General/PLF Medical Diagnosis Admission Date May 16, 2020 at 18:35 Medical Diagnosis: Sepsis with PNA Onset Date: May 16, 2020 Therapy Diagnosis Therapy Diagnosis: Weakness Height/Weight Height (Feet): 5 Height (Inches): 5.00 Weight (Pounds): 151 Weight (Ounces): 1.0 Precautions Precautions/Isolations: Fall Prevention, Standard Precautions Weight Bear Status Weight Bearing Restriction: Weight Bearing/Tolerated Referral Physician: Mak Referral Reason: Activity Tolerance, Self Care, Evaluation/Treatment, Strengthening/ROM Medical History Pertinent Medical History: DM, HTN, Renal Insufficiency, Rheumatoid Arthritis, Smoking Additional Medical History Anemia, ARF, LULY on CKD stage 3. Current History Pt. came to ER with right sided chest pain and fever. Pt. had to be placed on vent and was extubated 05/22/20. Reviewed History: Yes Social History Home: Single Level Current Living Status: Alone Entry Into Home: Stairs With Railing Steps Into Home: 3 ADL-Prior Level of Function SCALE: Activities may be completed with or without assistive devices. 8-Nmntemwzkz-dsjfsgp completes the activity by him/herself with no assistance from a helper. 5-Set-up or Clean-up Assistance-helper sets up or cleans up; patient completes activity. [place] assists only prior to or following the activity. 4-Supervision or Touching Assistance-helper provides verbal cues and/or touching/steadying and/or contact guard assistance as patient completes activity. Assistance may be provided throughout the activity or intermittently. 3-Partial/Moderate Assistance-helper does LESS THAN HALF the effort. [place] lifts, holds or supports trunk or limbs, but provides less than half the effort. 2-Substantial/Maximal Assistance-helper does MORE THAN HALF the effort. [place] lifts or holds trunk or limbs and provides more than half the effort. 0-Luovpstee-kfwtvi does ALL the effort. Patient does none of the effort to complete the activity. Or, the assistance of 2 or more helpers is required for the patient to complete the activity. If activity was not attempted, code reason: 7-Patient Refused. 9-Not Applicable-not attempted and the patient did not perform the activity before the current illness, exacerbation or injury. 10-Not Attempted due to Environmental Limitations-(lack of equipment, weather restraints, etc.). 88-Not Attempted due to Medical Conditions or Safety Concerns. ADL PLOF Comments Pt. reports that she has a caregiver that assists her. She states that she has assistance with bathing, dressing, cooking, cleaning, and all other IADLs. Pt. reports however that she still drives. Reports that her caregiver stays with her every night and that she gets 32 during daytime hours throughout the week. Self Care: Needed Some Help Functional Cognition: Unknown DME/Equipment: Bath Chair, Tub/Shower DME/Equipment Comments Pt. reports that she uses a walker. Drive Self: Yes OT Current Status Subjective Pt. reports pain, "all over" with movement. Does not report pain level. Pt. has had pain medication. Appearance Pt. in bed. Pt. is alert and states that she is willing to work with therapy. Mental Status/Objective Patient Orientation: Person Attachments: [place] Catheter, IV, Telemetry Current Hand Dominance: Right Upper Extremity ROM Pt. is limited in shoulder ROM. Reports that she has a lot of difficulty with left shoulder due to RA, but seems limited with movement in both. Upper Extremity Coordination Impaired. Pt. inconsistent with bilateral UE strength/ROM testing. Pt. demonstrates difficulty making fist, but then is able to do with increased time and cues. Reports great difficulty with raising bilateral arms at shoulder level, but is able to do with time. However, when she is handed a brush she is unable to bring it to her head. Increased carpenter mate strength noted in left hand when pt. is distracted. Other Treatments Pt. is agreeable to work with therapy. Pt. reports that she would like to get better so that she can go home. Pt. requires max assist for supine-sit. Pt. yells out and reports that she has pain everywhere. Pt. is able to maintain sitting balance. Participated in UE assessment. Pt. handed brush and encouraged to brush hair. She attempts to bring to head but stops usp and reports she can't go further. OT brushes hair for her. When handed a warm washcloth and asked to wash her face, she is able to do so. Pt. agrees to transfer to reclining chair. Stands with min assist with walker and begins to cry as she transfers. Pt. is encouraged. Chair alarm set and all needs met. Pt. is alert and seems calm after set up in chair. All needs are met. Education OT Patient Education: Correct positioning, Modified ADL techniques, Progress toward Goal/Update tx plan, Purpose of tx/functional activities, Reviewed precautions, Rehab process, Transfer techniques Teaching Recipient: Patient Teaching Methods: Demonstration, Discussion Response to Teaching: Verbalize Understanding, Return Demonstration, Reinforce ment Needed OT Nursing Home Goals Nursing Home Goals Time Frame: Jun 06, 2020 Eating (QC): 6 Oral Hygiene (QC): 5 Toileting Hygiene (QC): 4 Additional Goals: 1-Demonstrate ADL Tasks, 2-Verbalize Understanding, 3- ImproveStrength/Timo 1=Demonstrate adherence to instructed precautions during ADL tasks. 2=Patient will verbalize/demonstrate understanding of assistive devices/modifications for ADL. 3=Patient will improve strength/tolerance for activity to enable patient to perform ADL's. Pt. will improve overall strength and ADL transfer skills so that she can return to prior baseline. At prior baseline, pt. had caregiving assistance for all ADLs and IADLs. OT Education/Plan Problem List/Assessment Assessment: Decreased Activ Tolerance, Decreased Safety Aware, Decreased UE Strength, Dependent Transfers, Edema, Impaired Bed Mobility, Impaired Cognition, Impaired Coordination, Impaired Funct Balance, Impaired I ADL's, Impaired Self- Care Skills, Restricted Funct UE ROM Discharge Recommendations Plan/Recommendations: Continue POC Therapy Discharge Recommendati: Scheduled Assistance, Home & Family, Post Acute OT Treatment Plan/Plan of Care Treatment,Training & Education: Yes Patient would benefit from OT for education, treatment and training to promote independence in ADL's, mobility, safety and/or upper extremity function for ADL's. Plan of Care: ADL Retraining, Functional Mobility, UE Funct Exercise/Act Treatment Duration: Jun 06, 2020 Frequency: 5 times per week Estimated Hrs Per Day: .25 hour per day Agreement: Yes Rehab Potential: Fair Time/GCodes Start Time: 08:25 Stop Time: 08:45 Total Time Billed (hr/min): 20 Billed Treatment Time 1, LAUREANO RANDHAWA OT May 23, 2020 10:09
--- NOTE | 2020-05-23 10:13 | Physical Therapy Daily Note ---
PT Daily Note-Current Subjective Patient up in recliner and will transfer to [address] [place] [address] at this time. Agrees to PT. Pain Numeric Pain Scale: 5-Moderate Pain Location: Soft Tissue Location Body Site: Generalized Comment: FLACC/yelling Mental Status Patient Orientation: Person, Time, Situation Attachments: Obregon Catheter, IV Transfers SCALE: Activities may be completed with or without assistive devices. 4-Zzbbcbrfuv-jqsetne completes the activity by him/herself with no assistance from a helper. 5-Set-up or Clean-up Assistance-helper sets up or cleans up; patient completes activity. Lovejoy assists only prior to or following the activity. 4-Supervision or Touching Assistance-helper provides verbal cues and/or touching/steadying and/or contact guard assistance as patient completes activity. Assistance may be provided throughout the activity or intermittently. 3-Partial/Moderate Assistance-helper does LESS THAN HALF the effort. Lovejoy lifts, holds or supports trunk or limbs, but provides less than half the effort. 2-Substantial/Maximal Assistance-helper does MORE THAN HALF the effort. Lovejoy lifts or holds trunk or limbs and provides more than half the effort. 6-Bwnvdvkre-kcftot does ALL the effort. Patient does none of the effort to complete the activity. Or, the assistance of 2 or more helpers is required for the patient to complete the activity. If activity was not attempted, code reason: 7-Patient Refused. 9-Not Applicable-not attempted and the patient did not perform the activity before the current illness, exacerbation or injury. 10-Not Attempted due to Environmental Limitations-(lack of equipment, weather restraints, etc.). 88-Not Attempted due to Medical Conditions or Safety Concerns. Sit to Stand (QC): 4 Gait Training Does the Patient Walk?: Yes Distance: 150' Walk 10 feet (QC): 4 Walk 50 ft with 2 Turns(QC): 4 Walk 150 ft (QC): 4 Gait Assistive Device: FWW slow, steady gait sequence Exercises Seated Therapy Exercises: Ankle pumps, Long arc quads Seated Reps: 15 Assessment Patient tolerated treatment well and appears to self limit. Patient transferred to [address] [place] [address] for continued care. PT to increase activity as tolerated by patient. PT Fci Goals Fci Goals PT Fci Goals Time Frame: Jun 17, 2020 Roll Left & Right (QC): 6 Sit to Lying (QC): 6 Lying-Sitting on Side/Bed(QC): 6 Sit to Stand (QC): 6 Chair/Mpl-kx-Upfdp Xfer(QC): 6 Toilet Transfer (QC): 6 Does the Patient Walk: Yes Walk 10 feet (QC): 6 Walk 50ft with 2 Turns (QC): 6 Walk 150 ft (QC): 6 PT Plan Treatment/Plan Treatment Plan: Continue Plan of Care Treatment Plan: Bed Mobility, Education, Functional Activity Timo, Functional Strength, Gait, Safety, Therapeutic Exercise, Transfers Treatment Duration: Jun 17, 2020 Frequency: 6 times per week Estimated Hrs Per Day: .25 hour per day (to .5) Patient and/or Family Agrees t: Yes Time/GCodes Time In: 903 Time Out: 916 Total Billed Treatment Time: 13 Total Billed Treatment 1 visit GT 13 min SHANIKA SHEA PT May 23, 2020 10:13
[2020-05-23] MEDS ORDERED: GABA300C PO (11:18)
[2020-05-23] MEDS ORDERED: SUMA50TA2 PO (11:18)
--- NOTE | 2020-05-23 11:20 | NUR ---
SPOKE WITH THE PT AND WENT THRU THE EXT MED HISTORY TO COMPLETE THE MED REC [facility] 10MG- LAST FILLED ON 11-23-2019 #15. WHEN PT WAS HERE RECENTLY AND I SPOKE WITH HER ON 05-04-2020 SHE SAID SHE WAS STILL TAKING AND WAS GOING TO FOLLOW UP WITH [facility] TO WHY THEY HAVE NOT FILLED IT (THEY BUBBLE PACK FOR HER) WHEN I SPOKE WITH HER TODAY PT INDICATED SHE HAD NOT TALKED WITH [facility] YET- I CALLED [facility] AND THEY WERE ABLE TO TELL ME THAT THE RX DOES NOT HAVE A REFILL. THE PRESCRIBER THEY HAVE ON FILE DOES NOT LOOK TO BE THE PCP OR A CURRENT PRESCRIBER. I LEFT AN ATTENTION TRIANGLE SO I CAN FOLLOW UP WITH EITHER HER ATTENDING DR OR JOHNATHON TO SEE IF WE CAN GET HER A NEW RX. OTC MEDS: VIT C VIT D MELATONIN POTASSIUM GLUC 99MG
[2020-05-23] MEDS: ASPIRIN 81 MG CHEW (CHILDREN'S ASA) PO SCH ×2 (11:28→11:37)
[2020-05-23] MEDS: D5 NS 1000 ML IV SOLUTION 1,000 ML IV SCH (11:30)
--- NOTE | 2020-05-23 12:40 | NUR ---
CM/SS visited with patient for discharge planning. The patient seemed tired and just received her lunch. This ss had a short visit. She states that she still has the private caregiver list from her last hospital stay that this sw gave her; however, she states she did not have time to call. According to the patient, she has allotted hours for caregivers through [employer] but does not have any currently working. The patients child care associate through [facility] is Cameron Mayes ([phone]). CM/SS attempted to contact Cameron. This sw left a voice mail with call back number. CM/SS discussed different options for skilled therapies if patient does not improve with therapy. She verbalized understanding. CM/SS will continue to follow.
--- NOTE | 2020-05-23 15:25 | ST Dysphagia Evaluation ---
Speech Evaluation-General Medical Diagnosis Sepsis with PNA Onset Date: May 16, 2020 Therapy Diagnosis Therapy Diagnosis: Oropharyngeal Dysphagia Precautions Precautions: Aspiration Referral Referring Physician: Dr. Jack Medical History Pertinent Medical History: DM, HTN, Renal Insufficiency, Rheumatoid Arthritis, Smoking Reviewed History: Yes Social History Current Living Status: Alone Speech PLF/Current-Dysphagia Prior Level of Function Patient lived home alone where she was independent for her daily needs. Subjective Patient was cooperative with the Bedside Dysphagia Evaluation. Cognitive Status Patient Orientation: Person, Place, Situation Oral Motor Skills Dentition: Natural, Tumbled, Stained Ability to Follow Directions: Good Patient NPO pending BDE Oral Expression Ability: Mild Impairment Voice Voice Phonatory-Based Quality: Normal Voice Pitch: Normal Voice Loudness: Mildly Soft/Quiet Face Facial Symmetry: Symmetrical Oral-Facial Assessment Oral-Facial Dentition: Normal Labial Seal Description: Reduced ROM Smile: Reduced ROM Puff Cheeks: Reduced Strength Lingual Protrusion: Abnormal Lingual ROM: Abnormal Lingual Strength: Abnormal Pharynx Velopharyngeal Move.: Normal Volitional Dry Swallow: Yes Voluntary Cough: Yes Can Clear Throat Volitionally: Yes Dysphagia Evaluation Consistencies Presented: Thin Liquid, Mechanical Soft, Pureed Oral phase is grossly within normal limits for all consistencies presented. Pharyngeal phase is within normal limits for all consistencies presented. Dietary Recommendations: Mechanical Soft Liquid Recommendations: Thin Swallowing Precautions: Alternate Liquids/Solids, Decreased Bolus 1/2 Tsp, Liquids from Straw, Small Bites and Sips, Sitting Upright 90 Degrees, Sitting 90 Degrees 30 Post Intake Dysphagia Evaluation Summary Patient is a 55 y/o female who was admitted to the hospital due to sepsis and pneumonia. Patient was sitting up in her chair for the BDE. Patient was presented 1/2 tsp of thin liquids x3 and small sips via straw x2 without difficulty or s/s of aspiration. Patient was given 1/2 tsp of puree and mechanical soft without difficulty. Patient is not ready for regular at this time. Patient is recommended for Dysphagia II with thin liquids. This information was given to her nurse, Brooke and written on the white board in her room. Speech Short Term Goals Short Term Goals Short Term Goals 1) Patient will tolerate least restrictive diet level without s/s of aspiration at 90% or greater. 2) Patient will utilize compensatory strategies for safe oral intake at 90% or greater with minimal cues. Speech Machine Shop Specialist Goals Usp Goals Patient will maintain adequate nutrition/hydration via safe effective swallow function. Speech-Plan Patient/Family Goals Patient/Family Goals: Patient plans on returning to her home upon discharge. Treatment Plan Speech Therapy Treatment Plan: Continue Plan of Care Treatment Duration: May 26, 2020 Frequency: 2 times per week Estimated Hrs Per Day: .25 hour per day (Patient) Rehab Potential: Fair Barriers to Learning: Patient's medical status Pt/Family Agrees to Plan: Yes Safety Risks/Education Teaching Recipient: Patient Teaching Methods: Demonstration, Discussion Response to Teaching: Verbalize Understanding, Return Demonstration Education Topics Provided: Safety of oral intake and diet level Time Speech Therapy Time In: 09:30 Speech Therapy Time Out: 09:45 Total Billed Time: 15 Billed Treatment Time 1NICOLE BETHAN[address] ST May 23, 2020 15:25
--- NOTE | 2020-05-23 16:27 | NUR ---
PT REFUSED TYLENOL FOR FEVER OF 36. PT GIVEN ICE PACKS PER HER REQUEST, WILL CONTINUE TO MONITOR.
--- NOTE | 2020-05-23 17:45 | NUR ---
DR PA NOTIFIED OF 402 BS
--- NOTE | 2020-05-23 20:02 | Progress Note ---
Subjective Subjective/Events-last exam Patient states that she is feeling much more comfortable this AM. She is up sitting in chair. Tolerating PO diet. States that she is not sure if she has had BM. Review of Systems Pulmonary: Dyspnea, Cough Cardiovascular: No: Chest Pain, Palpitations Gastrointestinal: No: Nausea, Vomiting, Abdominal Pain Musculoskeletal: other (generalized pain) Neurological: Weakness, Incoordination Objective Exam Last Set of Vital Signs Vital Signs Date Time Temp Pulse Resp B/P (MAP) Pulse Ox O2 Delivery O2 Flow Rate FiO2 05/23/20 19:39 37.6 122 20 165/78 (107) 93 Room Air 05/22/20 19:00 2.00 05/22/20 10:47 28 Capillary Refill : Less Than 3 Seconds I&O Intake and Output 05/23/20 00:00 Intake Total 2630 ml Output Total 1050 ml Balance 1580 ml Intake Oral 0 ml IV Total 2540 ml Tube Feeding 60 ml Other 30 ml Output Urine Total 1050 ml General: Alert, Oriented X3, Mild Distress (short of breath with minimal activity) HEENT: Mucous Memb Moist/Jet Lungs: Other (end exp wheezing and increased work of breathing) Heart: Regular Rate, No Murmurs Abdomen: Normal Bowel Sounds, Soft, No Tenderness, No Masses Extremities: No Edema, No Tenderness/Swelling Skin: No Rashes, No Breakdown Neuro: Normal Speech, Sensation Intact, Cranial Nerves 3-12 NL Results/Procedures Lab Laboratory Tests 05/22/20 20:40: Glucometer 209H 05/22/20 23:51: Glucometer 146H 05/23/20 02:40: White Blood Count 9.3, Red Blood Count 3.03L, Hemoglobin 9.1L, Hematocrit 28L, Mean Corpuscular Volume 94, Mean Corpuscular Hemoglobin 30, Mean Corpuscular Hemoglobin Concent 32, Red Cell Distribution Width 14.5, Platelet Count 419H, Mean Platelet Volume 10.4, Neutrophils (%) (Auto) 72, Lymphocytes (%) (Auto) 17, Monocytes (%) (Auto) 7, Eosinophils (%) (Auto) 4, Basophils (%) (Auto) 0, Neutrophils # (Auto) 6.8, Lymphocytes # (Auto) 1.6, Monocytes # (Auto) 0.6, Eosinophils # (Auto) 0.4H, Basophils # (Auto) 0.0, Sodium Level 142, Potassium Level 3.0L, Chloride Level 107, Carbon Dioxide Level 22, Anion Gap 13, Blood Urea Nitrogen 27H, Creatinine 1.85H, Estimat Glomerular Filtration Rate 28, BUN/Creatinine Ratio 15, Glucose Level 82, Calcium Level 8.1L, Phosphorus Level 2.6, Magnesium Level 1.8 05/23/20 11:30: Glucometer 176H 05/23/20 17:32: Glucometer 402*H Microbiology 05/20/20 Gram Stain - Final, Complete 05/20/20 Sputum Culture - Final, Complete YEAST 05/19/20 Blood Culture - Preliminary, Resulted No growth Assessment/Plan Assessment/Plan (1) Severe sepsis Status: Acute Assessment & Plan: 05/22: Vitals improved, labs improving, Continue IV antibiotics (2) Acute respiratory failure Status: Acute Assessment & Plan: 05/22: Self extubated this AM, continue to monitor 05/23: No home O2 requirement, will continue to titrate as tolerated, interval increase in consolidation in RUL Qualifiers: Qualified Codes: J96.01 - Acute respiratory failure with hypoxia (3) Altered mental status Status: Resolved Qualifiers: Qualified Codes: R41.82 - Altered mental status, unspecified (4) Aspiration pneumonia Status: Acute Assessment & Plan: 05/22: Continue IV antibiotcs, Will titrate oxygen as tolerated Qualifiers: Qualified Codes: J69.0 - Pneumonitis due to inhalation of food and vomit (5) Acute kidney injury superimposed on chronic kidney disease Status: Acute Assessment & Plan: 05/22: Continue IVFs, renally dose medications 05/23: BUN/Cr improving, continue to monitor (6) Insulin dependent diabetes mellitus Status: Chronic Assessment & Plan: 05/23: Increased levemir today due to feeding and increase in blood sugars (7) Hypokalemia Status: Acute Assessment & Plan: 05/22: replaced, repeat BMP in AM 05/23: Replace and repeat BMP (8) DVT prophylaxis Status: Acute Assessment & Plan: - Lovenox Clinical Quality Measures AMI/AHF: ASA po Prior to arrival: No DVT/VTE Risk/Contraindication: Risk Factor Score Per Nursin RFS Level Per Nursing on Admit: 4+=Very High MILO PA MD May 23, 2020 20:02
[2020-05-23] MEDS: ENOXAPARIN 40 MG/0.4 ML (LOVENOX) SYR SC SCH (21:33)
[2020-05-24] VITALS (7 sets, daily range): BP systolic 128–164; BP diastolic 69–86
[2020-05-24] MEDS: MEROPENEM 500 MG/SWFI 10 ML IV PUSH IV SCH ×6 (01:12→16:46)
[2020-05-24] MEDS: inSUlin ASPART (NovoLOG) 1 UNIT/0.01 ML (CHARGE PER UNIT) SC SCH ×4 (01:13→19:44)
[2020-05-24] MEDS: RT-ALBUTEROL INHALER HFA (VENTOLIN HFA) 8 GM IH SCH ×5 (02:22→22:11)
[2020-05-24] MEDS: CYCLOBENZAPRINE 10 MG (FLEXERIL) TAB PO PRN ×2 (03:36→20:31)
--- NOTE | 2020-05-24 07:00 | NUR ---
LAB DRAW UNSUCCESSFUL THIS AM. PATIENT TO [facility] FOR CLINICAL NURSING INTERN TO FIND VEINS. DR HERNANDEZ NOTIFIED
--- NOTE | 2020-05-24 07:35 | Pulmonary Progress Note ---
Subjective Time Seen by a Provider: 07:32 Subjective/Events-last exam Pt is doing better. Sepsis Event Evaluation Height, Weight, BMI Height: 5'5.00" Weight: 151lbs. 1.0oz. 68.765567we; 26.10 BMI Method:Stated Exam Exam Vital Signs Date Time Temp Pulse Resp B/P (MAP) Pulse Ox O2 Delivery O2 Flow Rate FiO2 05/24/20 04:00 36.5 109 19 133/71 (91) 94 Room Air 05/24/20 02:23 93 Room Air 05/24/20 01:00 120 05/24/20 00:15 37.5 113 20 141/74 (96) 93 Room Air 05/23/20 20:56 93 Room Air 05/23/20 20:00 Room Air 05/23/20 19:39 37.6 122 20 165/78 (107) 93 Room Air 05/23/20 19:00 120 05/23/20 16:12 38.0 113 20 169/82 (111) 92 Room Air 05/23/20 14:48 94 Room Air 05/23/20 13:36 107 05/23/20 11:26 37.4 108 20 177/81 (113) 94 Room Air 05/23/20 09:17 37.4 112 20 156/73 (100) 96 Room Air 05/23/20 09:00 104 18 93 Room Air 05/23/20 08:00 38.0 05/23/20 08:00 96 Room Air 05/23/20 08:00 101 27 134/63 (86) 91 Room Air I & O 05/24/20 07:00 Intake Total 2760 ml Output Total 1475 ml Balance 1285 ml Height & Weight Height: 5'5.00" Weight: 151lbs. 1.0oz. 68.843108xu; 26.10 BMI Method:Stated General Appearance: No Apparent Distress HEENT: PERRL/EOMI, Moist Mucous Membranes; No Scleral Icterus (L), No Scleral Icterus (R) Neck: Normal Inspection, Supple; No Thyromegaly Respiratory: Other (Coarse breath sounds noted with no wheezing few fine basilar rales no wheezing appreciated ventilating easily) Cardiovascular: Regular Rate, Rhythm, No Edema, No Gallop, No JVD, No Murmur Capillary Refill: Less Than 3 Seconds Gastrointestinal: non tender, soft Extremity: Other (1+ pedal and upper extremity edema noted. The left lower extremity is warm with 2+ dorsalis pedis pulses. The right foot is slightly cool it is not pallorous capillary refill is 3-4 seconds and are not able to appreciate dorsalis pedis or posterior tibial pulses. No purpura is noted there is no reaction to movement of the right lower extremity is unremarkable the calf is not indurated nor erythematous.) Neurologic/Psychiatric: Other (Right foot is warmer today and no mottling is noted still not able to appreciate dorsalis pedis or posterior tibial pulses there is no evidence for pallor left side normal) Skin: Normal Color, Warm/Dry Results Lab Laboratory Tests 05/23/20 02:40 Assessment/Plan Assessment/Plan Acute respiratory failure-- improving s/p ventilator therapy -COVID is neg x 2 -repeat labs pending RUL PNA -Will need repeat CT scan as out pt 8wks after discharge Acute renal failure - IVF LR at 125 Severe Sepsis with PNA -Merrem and azithromycin -Eraxis Metabolic acidosis -Recheck LA Anemia -Monitor LULY on CKD Stage 3 Continue IVF baseline creatinine around 1.6 IDDMII HTN HLD BLESSING SCHULTZ DO May 24, 2020 07:35
--- NOTE | 2020-05-24 08:57 | Speech Therapy Daily Note ---
Speech Daily Progress Note Subjective Date Seen by Provider: May 24, 2020 Time Seen by Provider: 00:15 Patient was up in recliner and eating cottage cheese. Objective Patient demo utilization of safe oral intake with compensatory strategies as trained at 80% with min to mod verbal cuing. Assessment Assessment Current Status: Good Progress Treatment Plan Continue Plan of Care Speech Short Term Goals Short Term Goals Short Term Goals 1) Patient will tolerate least restrictive diet level without s/s of aspiration at 90% or greater. 2) Patient will utilize compensatory strategies for safe oral intake at 90% or greater with minimal cues. Speech Heeler Machine Goals Heeler Machine Goals Patient will maintain adequate nutrition/hydration via safe effective swallow function. Speech-Plan Patient/Family Goals Patient/Family Goals: Patient plans on returning to her home where she lives alone. Her discharge placement will be determined by her medical progress. Treatment Plan Speech Therapy Treatment Plan: Continue Plan of Care Patient was upset about the foods she was served. Room service came during our session and clinician helped to make her alternate choices for her lunch today. Treatment Duration: May 26, 2020 Frequency: 2 times per week Estimated Hrs Per Day: .25 hour per day (Patient) Rehab Potential: Fair Barriers to Learning: Patient's medical status, dysphagia needs Pt/Family Agrees to Plan: Yes Safety Risks/Education Teaching Recipient: Patient Teaching Methods: Demonstration, Discussion Response to Teaching: Verbalize Understanding, Return Demonstration Education Topics Provided: Continued safety with intake Time Speech Therapy Time In: 08:15 Speech Therapy Time Out: 08:30 Total Billed Time: 15 Billed Treatment Time 1, BONNY GINGER Leblanc May 24, 2020 08:57
[2020-05-24] MEDS ORDERED: AZITHROMYCIN 250 MG TAB (ZITHROMAX) PO SCH (09:00)
[2020-05-24] MEDS: meTOproloL SUCCINATE 50 MG (TOPROL XL) TAB PO SCH (09:13)
[2020-05-24] MEDS: fluCOnazole (DIFLUCAN) 100 MG TAB PO SCH (09:13)
[2020-05-24] MEDS: KCL 20 MEQ TAB (K-DUR) PO SCH (09:49)
--- NOTE | 2020-05-24 10:51 | Physical Therapy Progress Note ---
Therapy Progress Note Patient in recliner. She refuses physical therapy. She starts saying she has to call her mother first for some reason, starts crying and getting nervous and frantic and it gets worse the longer she goes on. Therapist does not want to make situation worse so leaves for patient to calm down. Nurse is aware and in the room. Will try back later today. EDUARDA LOPEZ PT May 24, 2020 10:51
--- NOTE | 2020-05-24 11:48 | Occupational Ther Daily Note ---
OT Current Status-Daily Note Subjective Pt alert, sitting in recliner. Pt agrees to therapy. Pt talking to mother on phone and is excited that her mom is coming to visit. No c/o pain. Mental Status/Objective Patient Orientation: Person, Place, Time, Situation Attachments: Obregon Catheter, IV, Telemetry ADL-Treatment Therapy Code Descriptions/Definitions Functional Rolfe Measure: 0=Not Assessed/NA 4=Minimal Assistance 1=Total Assistance 5=Supervision or Setup 2=Maximal Assistance 6=Modified Rolfe 3=Moderate Assistance 7=Complete IndependenceSCALE: Activities may be completed with or without assistive devices. 2-Xxhzxllplp-heroksb completes the activity by him/herself with no assistance from a helper. 5-Set-up or Clean-up Assistance-helper sets up or cleans up; patient completes activity. Martelle assists only prior to or following the activity. 4-Supervision or Touching Assistance-helper provides verbal cues and/or bird sachin/steadying and/or contact guard assistance as patient completes activity. Assistance may be provided throughout the activity or intermittently. 3-Partial/Moderate Assistance-helper does LESS THAN HALF the effort. Martelle lifts, holds or supports trunk or limbs, but provides less than half the effort. 2-Substantial/Maximal Assistance-helper does MORE THAN HALF the effort. Martelle lifts or holds trunk or limbs and provides more than half the effort. 7-Ayflcravs-pqvosl does ALL the effort. Patient does none of the effort to complete the activity. Or, the assistance of 2 or more helpers is required for the patient to complete the activity. If activity was not attempted, code reason: 7-Patient Refused. 9-Not Applicable-not attempted and the patient did not perform the activity before the current illness, exacerbation or injury. 10-Not Attempted due to Environmental Limitations-(lack of equipment, weather restraints, etc.). 88-Not Attempted due to Medical Conditions or Safety Concerns. Other Treatment Pt given light resistance therapy sponges to increase strength and decrease edema in hands. Pt demonstrated understanding of 2 exercises given, skilled instruction given for technique. Pt also given built up handles for utensils due to decreased operator assistant i cementing per edema. Pt demonstrated ability to grasp and bring fork to mouth without difficulty. After session, pt sitting in recliner with call light/phone in reach. All needs met in room. OT Intermediate Goals Engineering Intern Goals Time Frame: Jun 06, 2020 Eating (QC): 6 Oral Hygiene (QC): 5 Toileting Hygiene (QC): 4 Additional Goals: 1-Demonstrate ADL Tasks, 2-Verbalize Understanding, 3- ImproveStrength/Timo 1=Demonstrate adherence to instructed precautions during ADL tasks. 2=Patient will verbalize/demonstrate understanding of assistive devices/modifications for ADL. 3=Patient will improve strength/tolerance for activity to enable patient to perform ADL's. OT Education/Plan Problem List/Assessment Assessment: Decreased Activ Tolerance, Decreased Safety Aware, Decreased UE Strength, Edema, Impaired Cognition, Impaired Coordination, Impaired Funct Balance, Impaired Self-Care Skills Discharge Recommendations Plan/Recommendations: Continue POC Treatment Plan/Plan of Care Patient would benefit from OT for education, treatment and training to promote independence in ADL's, mobility, safety and/or upper extremity function for ADL's. Plan of Care: ADL Retraining, Functional Mobility, UE Funct Exercise/Act Treatment Duration: Jun 06, 2020 Frequency: 5 times per week Estimated Hrs Per Day: .25 hour per day Agreement: Yes Rehab Potential: Fair Time/GCodes Start Time: 11:03 Stop Time: 11:20 Total Time Billed (hr/min): 17 Billed Treatment Time 1 visit-FA 1 (17 min) ELLI OROZCO May 24, 2020 11:47
--- NOTE | 2020-05-24 13:01 | NUR ---
RD ASSESSMENT PMHx: DM CKD; DVT; GERD; pancreatitis; hx of DKA PT INTERACTION: Pt was awake and pleasant during nutrition follow-up. Pt states she has been eating "so-so" since last assessment. Note avg PO intake <25% x2meal, per chart review. Pt states no issues with nausea, vomiting, constipation, or diarrhea since last assessment. Note last BM was 05/23 and pt not currently on bowel regimen per chart review. ABNORMAL NUTRITION-RELATED LAB VALUES LOW: K 3.0; Ca 8.1 HIGH: BUN 27; cr 1.85 Est. kcal needs: 1475 kcal | 15 kcal/kg Est. Pro needs: 79 g Pro | 0.8 g Pro/kg PES STATEMENT: Inadequate oral intake (NI-2.1) related to loss of appetite as evidenced by pt interview | avg PO intake <25% x2meal INTERVENTION: Continue with current diet order of DYS2 Mechanically Altered diet. Pt may benefit from consistent CHO restriction if blood glucose levels become elevated. Add Glucerna (strawberry) to meals TID, for increased kcal intake. Provides 220 kcal and 10 g Pro per serving. Reinforced previous educations on DM management. Pt verbalized understanding. Will continue to follow and reassess as pt needs, intake, and status change. MONITOR/EVALUATE: PO Intake; Plan of Care; Hydration Status; Weight Status; Lab Values Jerzy Barbosa, , RD, LD
--- NOTE | 2020-05-24 14:20 | Physical Therapy Daily Note ---
PT Daily Note-Current Subjective Pt in recliner with mother in room. Pt Unwilling to do therapy but agrees to a few exercises in recliner. Pain Numeric Pain Scale: 10-Worst Possible Pain Comment: Generalized pain pt teary throughout tx Mental Status Patient Orientation: Confused Attachments: [place] Catheter, Other-See Comments (Air Cast on L UE), IV Transfers SCALE: Activities may be completed with or without assistive devices. 4-Opdkxofisn-gqsbgwv completes the activity by him/herself with no assistance from a helper. 5-Set-up or Clean-up Assistance-helper sets up or cleans up; patient completes activity. [place] assists only prior to or following the activity. 4-Supervision or Touching Assistance-helper provides verbal cues and/or touching/steadying and/or contact guard assistance as patient completes activity. Assistance may be provided throughout the activity or intermittently. 3-Partial/Moderate Assistance-helper does LESS THAN HALF the effort. Adrian lifts, holds or supports trunk or limbs, but provides less than half the effort. 2-Substantial/Maximal Assistance-helper does MORE THAN HALF the effort. [place] lifts or holds trunk or limbs and provides more than half the effort. 0-Xknusgcei-oiahlc does ALL the effort. Patient does none of the effort to complete the activity. Or, the assistance of 2 or more helpers is required for the patient to complete the activity. If activity was not attempted, code reason: 7-Patient Refused. 9-Not Applicable-not attempted and the patient did not perform the activity before the current illness, exacerbation or injury. 10-Not Attempted due to Environmental Limitations-(lack of equipment, weather restraints, etc.). 88-Not Attempted due to Medical Conditions or Safety Concerns. Exercises Seated Therapy Exercises: Ankle pumps, Long arc quads, Hip flexion, Kicking activity, Hip abd/add Seated Reps: 10 Treatments Pt performs seated exercises in recliner, pt left in recliner with all needs met and call light in hand. Assessment Current Status: Fair Progress Pt needed encouragement to do tx from PLASTER HELPER. PT Fdc Goals Fdc Goals PT Horticultural Specialty Grower Inside Goals Time Frame: Jun 17, 2020 Roll Left & Right (QC): 6 Sit to Lying (QC): 6 Lying-Sitting on Side/Bed(QC): 6 Sit to Stand (QC): 6 Chair/Bkj-cu-Bkhmb Xfer(QC): 6 Toilet Transfer (QC): 6 Does the Patient Walk: Yes Walk 10 feet (QC): 6 Walk 50ft with 2 Turns (QC): 6 Walk 150 ft (QC): 6 PT Plan Problem List Problem List: Activity Tolerance, Functional Strength, Safety, Balance, Gait, Transfer, Bed Mobility, ROM Treatment/Plan Treatment Plan: Continue Plan of Care Treatment Plan: Bed Mobility, Education, Functional Activity Timo, Functional Strength, Gait, Safety, Therapeutic Exercise, Transfers Treatment Duration: Jun 17, 2020 Frequency: 6 times per week Estimated Hrs Per Day: .25 hour per day (to .5) Patient and/or Family Agrees t: Yes Safety Risks/Education Patient Education: Correct Positioning, Safety Issues Teaching Recipient: Patient Teaching Methods: Discussion Response to Teaching: Reinforcement Needed Time/GCodes Time In: 1354 Time Out: 1405 Total Billed Treatment Time: 11 Total Billed Treatment 1, Ex [facility] May 24, 2020 14:20
[2020-05-24] MEDS ORDERED: FUROSEMIDE 40 MG/4 ML INJ (LASIX) IVP NR (14:30)
--- NOTE | 2020-05-24 15:26 | NUR ---
IRF Evaluation Determination: Accepted, pending insurance authorization. Met with patient and mother to discuss details related to rehabilitation program. It was explained that the therapy regimen is a requirement, patient agreeable. Patient states she is interested and wants to get stronger. Patient gave this verse writer permission to submit clinical information to [facility], for review. CM/SS notified. Will continue to follow. Thank you for this referral.
--- NOTE | 2020-05-24 15:40 | NUR ---
CM/SS follow up. CM/SS spoke with Henrietta from [facility] who stated she will submit to insurance and spoke with the patient about requirements of physical therapy. CM/SS attempted to visit the patient; however, she was resting and asked this ss to come back tomorrow. STEPHANIE/SS spoke with patient career development director Cameron Mayes about private caregivers. He reports he was under the assumption that the patient has had caregivers in the home or at least one. The patient reported to this ss that she does not have any. He stated she will need them to continue on with the benefit. CM/SS contacted [facility] to try and set up caregivers. A voice mail was left with call back number. CM/SS will continue to follow.
--- NOTE | 2020-05-24 17:29 | Progress Note ---
Subjective Subjective/Events-last exam Patient improving today. Still having alot of pain with swelling. She is up sitting in chair this AM. Tolerating PO diet Review of Systems Pulmonary: Dyspnea, Cough Cardiovascular: No: Chest Pain, Palpitations Gastrointestinal: No: Nausea, Vomiting Musculoskeletal: arm pain Neurological: Weakness, Incoordination Objective Exam Last Set of Vital Signs Vital Signs Date Time Temp Pulse Resp B/P (MAP) Pulse Ox O2 Delivery O2 Flow Rate FiO2 05/24/20 16:08 37.1 108 17 164/85 (111) 95 Room Air 05/22/20 19:00 2.00 05/22/20 10:47 28 Capillary Refill : Less Than 3 Seconds I&O Intake and Output 05/24/20 00:00 Intake Total 2400 ml Output Total 1450 ml Balance 950 ml Intake Oral 890 ml IV Total 1510 ml Output Urine Total 1450 ml # Bowel Movements 1 General: Alert, Oriented X3, Cooperative, Mild Distress Lungs: Clear to Auscultation, Normal Air Movement Heart: Regular Rate, No Murmurs Abdomen: Normal Bowel Sounds, Soft, No Tenderness, No Masses Extremities: Other (3+ pitting edema in LE and UE bilaterally) Neuro: Normal Speech, Sensation Intact, Cranial Nerves 3-12 NL Psych/Mental Status: Other (tearful during exam) Results/Procedures Lab Laboratory Tests 05/23/20 17:32: Glucometer 402*H 05/23/20 21:27: Glucometer 293H 05/24/20 00:23: Glucometer 274H 05/24/20 05:41: Glucometer 68L 05/24/20 11:30: Glucometer 144H Microbiology 05/20/20 Gram Stain - Final, Complete 05/20/20 Sputum Culture - Final, Complete YEAST 05/19/20 Blood Culture - Final, Complete No growth Assessment/Plan Assessment/Plan (1) Severe sepsis Status: Acute Assessment & Plan: 05/22: Vitals improved, labs improving, Continue IV antibiotics 05/24: Sepsis Resolved (2) Acute respiratory failure Status: Acute Assessment & Plan: 05/22: Self extubated this AM, continue to monitor 05/23: No home O2 requirement, will continue to titrate as tolerated, interval increase in consolidation in RUL 05/24: Will need outpatient CT scan in 8 weeks Qualifiers: Qualified Codes: J96.01 - Acute respiratory failure with hypoxia (3) Acute kidney injury superimposed on chronic kidney disease Status: Acute Assessment & Plan: 05/22: Continue IVFs, renally dose medications 05/23: BUN/Cr improving, continue to monitor 05/24: Lasix 20 mg IV x1 to help with diuresis, monitor BMP (4) Altered mental status Status: Resolved Qualifiers: Qualified Codes: R41.82 - Altered mental status, unspecified (5) Aspiration pneumonia Status: Acute Assessment & Plan: 05/22: Continue IV antibiotcs, Will titrate oxygen as tolerated Qualifiers: Qualified Codes: J69.0 - Pneumonitis due to inhalation of food and vomit (6) Insulin dependent diabetes mellitus Status: Chronic Assessment & Plan: 05/23: Increased levemir today due to feeding and increase in blood sugars (7) Hypokalemia Status: Acute Assessment & Plan: 05/22: replaced, repeat BMP in AM 05/23: Replace and repeat BMP (8) DVT prophylaxis Status: Acute Assessment & Plan: - Lovenox Clinical Quality Measures AMI/AHF: ASA po Prior to arrival: No DVT/VTE Risk/Contraindication: Risk Factor Score Per Nursin RFS Level Per Nursing on Admit: 4+=Very High MILO PA MD May 24, 2020 17:29
[2020-05-24] MEDS: ENOXAPARIN 40 MG/0.4 ML (LOVENOX) SYR SC SCH (20:31)
[2020-05-25] MEDS: inSUlin ASPART (NovoLOG) 1 UNIT/0.01 ML (CHARGE PER UNIT) SC SCH ×2 (00:08→06:01)
[2020-05-25] MEDS: MEROPENEM 500 MG/SWFI 10 ML IV PUSH IV SCH ×2 (00:08)
[2020-05-25 04:10] VITALS: BP 134/71
[2020-05-25] MEDS: RT-ALBUTEROL INHALER HFA (VENTOLIN HFA) 8 GM IH SCH ×2 (06:28→11:03)
--- NOTE | 2020-05-25 07:15 | Pulmonary Progress Note ---
Subjective Time Seen by a Provider: 07:10 Subjective/Events-last exam Pt is doing better. Sepsis Event Evaluation Height, Weight, BMI Height: 5'5.00" Weight: 151lbs. 1.0oz. 68.817699dw; 26.10 BMI Method:Stated Exam Exam Vital Signs Date Time Temp Pulse Resp B/P (MAP) Pulse Ox O2 Delivery O2 Flow Rate FiO2 05/25/20 06:29 97 Room Air 05/25/20 04:10 36.8 98 18 134/71 (92) 93 Room Air 05/25/20 01:00 105 05/24/20 23:35 37.8 105 22 129/69 (89) 95 Room Air 05/24/20 22:11 95 Room Air 05/24/20 20:30 Room Air 05/24/20 20:28 109 05/24/20 20:20 37.1 110 16 142/86 (104) 93 Room Air 05/24/20 19:39 95 Room Air 05/24/20 16:08 37.1 108 17 164/85 (111) 95 Room Air 05/24/20 12:46 101 05/24/20 11:25 94 Room Air 05/24/20 11:04 37.2 111 20 128/70 (89) 94 Room Air 05/24/20 08:02 37.3 108 18 131/75 (93) 95 Room Air 05/24/20 08:00 Room Air I & O 05/25/20 07:00 Intake Total 2090 ml Output Total 2520 ml Balance -430 ml Height & Weight Height: 5'5.00" Weight: 151lbs. 1.0oz. 68.750174zg; 26.10 BMI Method:Stated General Appearance: No Apparent Distress HEENT: PERRL/EOMI, Moist Mucous Membranes; No Scleral Icterus (L), No Scleral Icterus (R) Neck: Normal Inspection, Supple; No Thyromegaly Respiratory: Other (Coarse breath sounds noted with no wheezing few fine basilar rales no wheezing appreciated ventilating easily) Cardiovascular: Regular Rate, Rhythm, No Edema, No Gallop, No JVD, No Murmur Capillary Refill: Less Than 3 Seconds Gastrointestinal: non tender, soft Extremity: Other (1+ pedal and upper extremity edema noted. The left lower extremity is warm with 2+ dorsalis pedis pulses. The right foot is slightly cool it is not pallorous capillary refill is 3-4 seconds and are not able to appreciate dorsalis pedis or posterior tibial pulses. No purpura is noted there is no reaction to movement of the right lower extremity is unremarkable the calf is not indurated nor erythematous.) Neurologic/Psychiatric: Other (Right foot is warmer today and no mottling is noted still not able to appreciate dorsalis pedis or posterior tibial pulses there is no evidence for pallor left side normal) Skin: Normal Color, Warm/Dry Assessment/Plan Assessment/Plan Acute respiratory failure-- improving s/p ventilator therapy -COVID is neg x 2 RUL PNA -Will need repeat CT scan as out pt 8wks after discharge -Pt is now on RA Acute renal failure -monitor Sepsis with PNA - improving -Merrem - change to Augmentin Anemia -Monitor LULY on CKD Stage 3 baseline creatinine around 1.6 IDDMII HTN HLD BLESSING SCHULTZ DO May 25, 2020 07:15
[2020-05-25] MEDS ORDERED: AUGMENTIN 875 MG TAB (AMOXICILLIN/CLAVULANATE) PO SCH (08:00)
[2020-05-25 08:42] VITALS: BP 160/66
[2020-05-25] MEDS: fluCOnazole (DIFLUCAN) 100 MG TAB PO SCH (08:58)
[2020-05-25] MEDS: ASPIRIN 81 MG CHEW (CHILDREN'S ASA) PO SCH ×2 (08:59→09:01)
[2020-05-25] MEDS: meTOproloL SUCCINATE 50 MG (TOPROL XL) TAB PO SCH (08:59)
[2020-05-25] MEDS: KCL 20 MEQ TAB (K-DUR) PO SCH (09:01)
--- NOTE | 2020-05-25 09:42 | Physical Therapy Daily Note ---
PT Daily Note-Current Subjective Patient states,"I hope to go home today. One Doctor said I could." Pain Numeric Pain Scale: 5-Moderate Pain Location: Left Location Body Site: Thigh Pain Description: Ache Mental Status Patient Orientation: Normal For Age Attachments: [place] Catheter Transfers SCALE: Activities may be completed with or without assistive devices. 8-Ejyhlrwpta-qlbfxkr completes the activity by him/herself with no assistance from a helper. 5-Set-up or Clean-up Assistance-helper sets up or cleans up; patient completes activity. [place] assists only prior to or following the activity. 4-Supervision or Touching Assistance-helper provides verbal cues and/or touching/steadying and/or contact guard assistance as patient completes activity. Assistance may be provided throughout the activity or intermittently. 3-Partial/Moderate Assistance-helper does LESS THAN HALF the effort. [place] lifts, holds or supports trunk or limbs, but provides less than half the effort. 2-Substantial/Maximal Assistance-helper does MORE THAN HALF the effort. [place] lifts or holds trunk or limbs and provides more than half the effort. 5-Souxvfbxz-mzqkti does ALL the effort. Patient does none of the effort to complete the activity. Or, the assistance of 2 or more helpers is required for the patient to complete the activity. If activity was not attempted, code reason: 7-Patient Refused. 9-Not Applicable-not attempted and the patient did not perform the activity before the current illness, exacerbation or injury. 10-Not Attempted due to Environmental Limitations-(lack of equipment, weather restraints, etc.). 88-Not Attempted due to Medical Conditions or Safety Concerns. Roll Left & Right (QC): 6 Sit to Lying (QC): 6 Lying to Sitting/Side of Bed(Q: 6 Sit to Stand (QC): 6 Gait Training Does the Patient Walk?: Yes Distance: 500' Walk 10 feet (QC): 6 Walk 50 ft with 2 Turns(QC): 6 Walk 150 ft (QC): 6 Gait Assistive Device: FWW safe and functional with no deviation Exercises Seated Therapy Exercises: Ankle pumps, Long arc quads, Hip flexion Seated Reps: 15 Assessment Patient tolerated treatment well and desires to return to home today. Patient demonstrated independent exercise program and ambulate with FWW, PLOF, 500'. PT will see patient x 1 more session to ensure patient LOF. PT Lumber Inspector Goals Skilled Nursing Goals PT Lumber Inspector Goals Time Frame: Jun 17, 2020 Roll Left & Right (QC): 6 Sit to Lying (QC): 6 Lying-Sitting on Side/Bed(QC): 6 Sit to Stand (QC): 6 Chair/Ldt-je-Xlqiv Xfer(QC): 6 Toilet Transfer (QC): 6 Does the Patient Walk: Yes Walk 10 feet (QC): 6 Walk 50ft with 2 Turns (QC): 6 Walk 150 ft (QC): 6 PT Plan Treatment/Plan Treatment Plan: Continue Plan of Care Treatment Plan: Bed Mobility, Education, Functional Activity Timo, Functional Strength, Gait, Safety, Therapeutic Exercise, Transfers Treatment Duration: Jun 17, 2020 Frequency: 6 times per week Estimated Hrs Per Day: .25 hour per day (to .5) Patient and/or Family Agrees t: Yes Time/GCodes Time In: 915 Time Out: 929 Total Billed Treatment Time: 14 Total Billed Treatment 1 visit FA 14 min SHANIKA SHEA PT May 25, 2020 09:42
--- NOTE | 2020-05-25 10:04 | NUR ---
IRF Discontinuation of inpatient rehabilitation evaluation and cancellation of prior authorization request to [facility], as patient is now ambulating (500ft, FWW) and completing bed mobility with independence. CM/SS notified.
[2020-05-25 10:11] LABS: BASOPHILS % (AUTO) 0 % (0-10); EOSINOPHILS # (AUTO) 0.5 10^3/uL (0.0-0.3); EOSINOPHILS % (AUTO) 6 % (0-10); HEMATOCRIT 28 % (35-52); HEMOGLOBIN 8.8 G/DL (11.5-16.0); LYMPHOCYTES # (AUTO) 1.8 X 10^3 (1.0-4.0); LYMPHOCYTES % (AUTO) 20 % (12-44); MEAN CORPUSCULAR HEMOGLOBIN 30 PG (25-34); MEAN CORPUSCULAR HGB CONC 31 G/DL (32-36); MEAN CORPUSCULAR VOLUME 94 FL (80-99); MEAN PLATELET VOLUME 9.4 FL (7.4-10.4); MONOCYTES # (AUTO) 0.6 X 10^3 (0.0-1.0); MONOCYTES % (AUTO) 7 % (0-12); NEUTROPHILS # (AUTO) 5.9 X 10^3 (1.8-7.8); NEUTROPHILS % (AUTO) 67 % (42-75); PLATELET COUNT 469 10^3/uL (130-400); RED CELL DISTRIBUTION WIDTH 14.2 % (10.0-14.5); WHITE BLOOD COUNT 8.9 10^3/uL (4.3-11.0)
[2020-05-25 10:30] LABS: CALCIUM 8.3 MG/DL (8.5-10.1); CREATININE SERUM 1.47 MG/DL (0.60-1.30); MAGNESIUM 1.5 MG/DL (1.6-2.4); PHOSPHORUS 2.7 MG/DL (2.3-4.7); POTASSIUM 3.7 MMOL/L (3.6-5.0)
--- NOTE | 2020-05-25 10:59 | Discharge Summary ---
Diagnosis/Chief Complaint Date of Admission May 16, 2020 at 18:35 Date of Discharge 05/25/2020 Admission Diagnosis Admission Diagnosis See Problem list Discharge Diagnosis See Below Problems/Diagnosis: (1) Severe sepsis Assessment & Plan: 05/22: Vitals improved, labs improving, Continue IV antibiotics 05/24: Sepsis Resolved Status: Acute (2) Acute respiratory failure Assessment & Plan: 05/22: Self extubated this AM, continue to monitor 05/23: No home O2 requirement, will continue to titrate as tolerated, interval increase in consolidation in RUL 05/24: Will need outpatient CT scan in 8 weeks 05/25: Patient doing well on RA, home oxygen study done with exertion and she did not require oxygen Qualifiers: Qualified Codes: J96.01 - Acute respiratory failure with hypoxia Status: Acute (3) Acute kidney injury superimposed on chronic kidney disease Assessment & Plan: 05/22: Continue IVFs, renally dose medications 05/23: BUN/Cr improving, continue to monitor 05/24: Lasix 20 mg IV x1 to help with diuresis, monitor BMP 05/25: Patient at baseline Cr at time of d/c Status: Acute (4) Altered mental status Qualifiers: Qualified Codes: R41.82 - Altered mental status, unspecified Status: Resolved (5) Aspiration pneumonia Assessment & Plan: 05/22: Continue IV antibiotcs, Will titrate oxygen as tolerated Qualifiers: Qualified Codes: J69.0 - Pneumonitis due to inhalation of food and vomit Status: Acute (6) Insulin dependent diabetes mellitus Assessment & Plan: 05/23: Increased levemir today due to feeding and increase in blood sugars Status: Chronic (7) Hypokalemia Assessment & Plan: 05/22: replaced, repeat BMP in AM 05/23: Replace and repeat BMP Status: Acute (8) DVT prophylaxis Assessment & Plan: - Lovenox Status: Acute Discharge Summary-Simple/Stand Consultations Dr Brian: Cardiology Dr Winkler: Pulmonary Critical Care Discharge Physical Examination Allergies: Coded Allergies: morphine (Verified Allergy, Mild, Vomiting, 05/20/20) orange juice (Verified Allergy, Mild, Nausea, 05/24/20) Sulfa (Sulfonamide Antibiotics) (Unverified Allergy, Unknown, 05/11/15) codeine (Verified Allergy, Unknown, TAKES ULTRAM AT HOME, 11/18/08) ketorolac (Verified Allergy, Unknown, 10/05/08) tramadol (Verified Allergy, Unknown, 11/02/11) Vitals & I&Os Vital Sign - Last 12Hours Date Time Temp Pulse Resp B/P (MAP) Pulse Ox O2 Delivery O2 Flow Rate FiO2 05/25/20 08:42 37.4 114 18 160/66 (97) 94 Room Air 05/22/20 19:00 2.00 05/22/20 10:47 28 Intake and Output 05/25/20 00:00 Intake Total 1640 ml Output Total 1945 ml Balance -305 ml General Appearance: Alert, Oriented X3, Cooperative, No Acute Distress HEENT: Mucous Memb Moist/[place] Respiratory: Normal Air Movement, Other (basilar wheezing, normal work of breathing) Cardiovascular: Regular Rate, No Murmurs Abdominal: Normal Bowel Sounds, Soft, No Tenderness, No Masses Extremities: Other (1+ pitting edema in LE and UE bilaterally) Skin: No Rashes, No Breakdown Neuro: Normal Speech, Strength at 5/5 X4 Ext, Sensation Intact, Cranial Nerves 3-12 NL Psych/Mental Status: Mental Status NL, Other (Tearful and excited to go home) Hospital Course Was the Problem List Reviewed?: Yes See final discharge diagnosis. Other pending tests NEEDS REPEAT CT CHEST IN 8 WEEKS Discussion & Recommendations 55 yo F that presented to ER with chest pain and severe sepsis on admission. Patient was started on IV antibiotics and completed fluid resuscitation. She required intubation during this admission and self extubated 3 days prior to d/c. Patient had acute on chronic renal failure during this admission and her Cr returned to baseline at time of discharge. She was treated for PNA. COVID testing during admission was negative. Discharge Condition at discharge Stable Instructions to patient/family Please see electronic discharge instructions given to patient. Discharge Medications Reviewed and agree with Discharge Medication list on patient's Discharge Instruction sheet Clinical Quality Measures AMI/AHF: ASA po Prior to arrival: No DVT/VTE Risk/Contraindication: Risk Factor Score Per Nursin RFS Level Per Nursing on Admit: 4+=Very High MILO PA MD May 25, 2020 10:59
[2020-05-25] MEDS ORDERED: FLUC100T6 PO (11:03)
[2020-05-25] MEDS ORDERED: ASPI-999 PO (11:03)
[2020-05-25] MEDS ORDERED: METO50TA7 PO (11:03)
[2020-05-25] MEDS ORDERED: AMOX1TAB12 PO (11:03)
--- NOTE | 2020-05-25 11:04 | Discharge Summary ---
Discharge [facility] Reconcile Patient Problems Problems Reviewed?: Yes Discharge Medications New, Converted or Re-Newed RX: Transmitted to Pharmacy New Medications: Amoxicillin/Potassium Clav (Amox Tr-K Clv 875-125 mg Tab) 1 Each Tablet 875 MG PO BID WITH MEALS, #10 TAB Aspirin (Aspirin) 81 Mg Tab.chew 81 MG PO DAILY, #30 TAB Fluconazole (Fluconazole) 100 Mg Tablet 100 MG PO DAILY, #7 TAB Metoprolol Succinate (Metoprolol Succinate) 50 Mg Tab.er.24h 50 MG PO DAILY, #30 TAB Continued Medications: Albuterol Sulfate (Proair Hfa) 1 Puff Puff 2 PUFF IH TID PRN for SHORTNESS OF BREATH, INHALER Ascorbic Acid (Vitamin C) 1,000 Mg Tablet 1000 MG PO DAILY, TAB Cholecalciferol (Vitamin D3) (Vitamin D3) 25 Mcg Tablet 25 MCG PO BID, TAB Diclofenac Sodium (Diclofenac Sodium) 100 Gm Gel..gram. 1 APPLIC TOP QID PRN for CRAMPS, TUBE APPLY TO LEGS Fluticasone Propionate (Flonase Allergy Relief) 9.9 Ml [place].susp 2 SPRAY NSEACH DAILY, EACH 1 SPRAY EACH NARE DAILY Furosemide (Furosemide) 40 Mg Tablet 40 MG PO DAILY, TAB Gabapentin (Neurontin) 300 Mg Capsule 300 MG PO TID, CAP Insulin Detemir (Levemir Flextouch) 100 Unit/1 Ml Insuln.pen 24 UNITS SC HS, EA Insulin Lispro (Humalog Kwikpen) 100 Unit/1 Ml Insuln.pen 5-15 UNITS SQ AC, EA Melatonin (Melatonin) 10 Mg Tablet 10 MG PO HS, TAB Metoclopramide HCl (Metoclopramide HCl) 10 Mg Tablet 10 MG PO QIDACHS, TAB Montelukast Sodium (Montelukast Sodium) 10 Mg Tablet 10 MG PO HS, TAB LAST FILLED 11-23-2019 #15 Naloxone HCl (Narcan) 4 Mg [place] 1 SPRAY NS UD PRN for UNRESPONSIVE, EACH ADMINSTER 1 SPRAY IN 1 NOSTRIL 1 TIME- MAY REPEAT IN ALTERNATING NOSTRIL EVERY 2-3 MINUTES UNTIL RESPONSIVE OR EMS ARRIVES Omeprazole (Omeprazole) 20 Mg Capsule.dr 20 MG PO DAILY, CAP Potassium Gluconate (Potassium) 99 Mg Tablet 99 MG PO DAILY, TAB Sumatriptan Succinate (Sumatriptan Succinate) 50 Mg Tablet 50 MG PO Q2H PRN for MIGRAINE MDD 200MG , TAB MAY REPEAT A DOSE IN 2 HOURS- DO NOT EXCEED 4 TABS (200MG) PER DAY Discontinued Medications: Metoprolol Tartrate (Metoprolol Tartrate) 50 Mg Tablet 50 MG PO BID, TAB Oxycodone HCl (Oxycodone IR) 5 Mg Tablet 5 MG PO DAILY PRN for PAIN-SEVERE (8-10), #6 TAB Patient Instructions Goal/Follow Up Appt: You need to f.u with your doctor in 1-2 weeks Activity & Diet Discharge Diet: Soft Diet Activity as Tolerated: Yes MILO PA MD May 25, 2020 11:04
[2020-05-25 11:50] VITALS: BP 166/77
--- NOTE | 2020-05-25 12:54 | NUR ---
STEPHANIE/EDITH finalized discharge plan. Plan: The patient will return home with her private caregiver ([id number]). STEPHANIE/SS spoke with Luli from [facility] to assist with setting patient up with caregivers. She states that she would like the patient to have at least 2 additional caregivers in the home to meet her hourly needs. STEPHANIE/SS did a phone call with the patient, Luli, and this sw to discuss options. The patient reports she has three workers lined up but they just need to fill out the paperwork. Luli stated that someone needed to curing pickling packer the paperwork from [facility] for potential employee's to fill out. The patient verbalized understanding. The employee's will be able to start right away after paper work is turned in. The zvhdhoxr-ak-miz will continue care alone until additional workers are provided. STEPHANIE/SS attempted to contact the patients transitions rn care coordinator Cameron Mayes to give an update. A voice mail was left with call back number. Possible oxygen need. Will follow study. Addendum: 05/25/20 at 1429 by JOVITA LACKEY The patient did not qualify for home o2. No further needs.
--- NOTE | 2020-05-25 13:09 | Speech Therapy Daily Note ---
Speech Daily Progress Note Subjective Date Seen by Provider: May 25, 2020 Time Seen by Provider: 00:25 Patient was upset about what she was served for breakfast when I entered her room. Objective Patient demo oral intake while utilizing compensatory strategies as trained at 90% without s/s of aspiration. Assessment Assessment Current Status: Good Progress Treatment Plan Continue Plan of Care Speech Short Term Goals Short Term Goals Short Term Goals 1) Patient will tolerate least restrictive diet level without s/s of aspiration at 90% or greater. 2) Patient will utilize compensatory strategies for safe oral intake at 90% or greater with minimal cues. Speech Shelter Goals Pharmacy Operations Coordinator Goals Patient will maintain adequate nutrition/hydration via safe effective swallow function. Speech-Plan Patient/Family Goals Patient/Family Goals: Patient plans on returning to her home with family assistance as needed. Treatment Plan Speech Therapy Treatment Plan: Continue Plan of Care Patient was upgraded to regular texture today. Treatment Duration: May 29, 2020 Frequency: 2 times per week Estimated Hrs Per Day: .25 hour per day (Patient) Rehab Potential: Fair Barriers to Learning: Patient's medical status Pt/Family Agrees to Plan: Yes Safety Risks/Education Teaching Recipient: Patient Teaching Methods: Demonstration, Discussion Response to Teaching: Verbalize Understanding, Return Demonstration Education Topics Provided: Continued safety with oral intake of upgraded diet Time Speech Therapy Time In: 08:30 Speech Therapy Time Out: 08:55 Total Billed Time: 25 Billed Treatment Time NallelyBONNY BETHANIA ST May 25, 2020 13:09
--- NOTE | 2020-05-25 14:17 | NUR ---
home 02 qualification sp02 never dropped below 89% pt does not qualify for 02 att. Addendum: 05/25/20 at 1418 by TRICIA CHRISTINE Amended: Links added.
[2020-05-25 14:50] VITALS: BP 166/77
--- NOTE | 2020-05-25 14:50 | NUR ---
LAURENCE PLEITEZ demonstrates understanding of discharge instructions and accurately returns instructions upon questioning. Copy of Post-Discharge Instructions given to PT. LAURENCE PLEITEZ is able to manage continuing needs after discharge. Patients belongings returned to PT. Patient discharged from [facility] on 05/25/20 at 1450 . LAURENCE PLEITEZ left floor via W/C, accompanied by STAFF AND CAREGIVER PER AUTO.
== END 2020-05-25 14:50 | disposition home or self-care (01) | DRG 871 ==
LOC: EDUNIT# 16:31 → ER 16:32 → CSD 18:35 → ICU 05-17 18:45 → 4TH 05-23 09:20
PROVIDERS: ADMIT Family Medicine; ATTEND Family Medicine
PROC: 02HV33Z Insertion of Infusion Device into Superior Vena Cava, Percutaneous Approach (ICD-10-PCS; principal; 2020-05-20)
PROC: 5A1945Z Respiratory Ventilation, 24-96 Consecutive Hours (ICD-10-PCS; 2020-05-20)
PROC: 0BH17EZ Insertion of Endotracheal Airway into Trachea, Via Natural or Artificial Opening (ICD-10-PCS; 2020-05-20)
DX: A41.9 Sepsis, unspecified organism (principal); J69.0 Pneumonitis due to inhalation of food and vomit; J96.00 Acute respiratory failure, unspecified whether with hypoxia or hypercapnia; N17.9 Acute kidney failure, unspecified; R65.20 Severe sepsis without septic shock; I12.9 Hypertensive chronic kidney disease with stage 1 through stage 4 chronic kidney disease, or unspecified chronic kidney disease; N18.3 Chronic kidney disease, stage 3 (moderate); E11.65 Type 2 diabetes mellitus with hyperglycemia; E11.40 Type 2 diabetes mellitus with diabetic neuropathy, unspecified; J44.9 Chronic obstructive pulmonary disease, unspecified; G89.29 Other chronic pain; F17.210 Nicotine dependence, cigarettes, uncomplicated; K21.9 Gastro-esophageal reflux disease without esophagitis; M19.91 Primary osteoarthritis, unspecified site; M06.9 Rheumatoid arthritis, unspecified; F60.9 Personality disorder, unspecified; E78.5 Hyperlipidemia, unspecified; R79.1 Abnormal coagulation profile; Z87.11 Personal history of peptic ulcer disease; Z86.718 Personal history of other venous thrombosis and embolism; Z79.4 Long term (current) use of insulin; Z87.19 Personal history of other diseases of the digestive system; Z88.2 Allergy status to sulfonamides; Z88.5 Allergy status to narcotic agent; Z88.8 Allergy status to other drugs, medicaments and biological substances
CPT/HCPCS: 36415; 36600; 71045; 71250; 74176; 80048; 80053; 80061; 80306; 81000; 82010; 82805; 82962; 83605; 83735; 83874; 83880; 84100; 84145; 84484; 85007; 85025; 85027; 85379; 85610; 85652; 85730; 86038; 86039; 86141; 86703; 86769; 87040; 87070; 87205; 87385; 87449; 87631; 87635; 87899; 93005; 93041; 93970; 94002; 94003; 94640; 94660; 94664; 94760; 94761; 94799; 96360; 96361

== ENCOUNTER → 2020-08-02 | Outpatient (CLI) | payer MEDICAID ==
[~2020-08-02] MED LIST changes: +AMOX1TAB12 PO; +ASCO100024 PO; -ASCO10006 PO; +ASPI-999 PO; +FLUC100T6 PO; +GABA300C PO; +METO50TA7 PO; +SUMA50TA2 PO
== END ==
LOC: LABNPT 06:12
PROVIDERS: ATTEND Nurse Practitioner Family
DX: J98.4 Other disorders of lung (principal); J18.8 Other pneumonia, unspecified organism; R91.8 Other nonspecific abnormal finding of lung field; Z20.828 Contact with and (suspected) exposure to other viral communicable diseases; Z72.0 Tobacco use

== ENCOUNTER 2020-08-08 05:10 | Inpatient (IN) | payer MEDICAID ==
[2020-08-08] VITALS (16 sets, daily range): BP systolic 111–161; BP diastolic 57–80
[~2020-08-08] VITALS: Ht 165 cm; Wt 84.1 kg
[~2020-08-08 05:10] MED LIST changes: +OXC5T PO; -OXYC5TAB96 PO
[2020-08-08] MEDS ORDERED: NS IV 1000 ML 1,000 ML IV SCH ×3 (05:13→08:34)
[2020-08-08] MEDS ORDERED: ONDANSETRON 4 MG/2 ML (SDV) Z0FRAN IVP ONE (05:15)
--- NOTE | 2020-08-08 05:31 | ED General ---
General Chief Complaint: Glucose Problems Stated Complaint: DIARRHEA,VOMITING Nursing Triage Note: Pt here with n/v/d. Also c/o body aches which is normal for her due to RA. Pt states she recently had pneumonia but had a negative Covid test 3 days ago. Nursing Sepsis Screen: No Definite Risk Source of Information: Patient (PT IS SOMEWHAT LIMITED HISTORIAN), EMS, Old Records History of Present Illness Date Seen by Provider: Aug 08, 2020 Time Seen by Provider: 05:12 Initial Comments PT ARRIVES VIA EMS FROM HOME EMS CALLED FOR PT WITH NAUSEA AND VOMITING PT STATES SHE BEGAN VOMITING YESTERDAY AFTERNOON--IS UNABLE TO STATE HOW MANY EPISODES OF VOMITING SHE HAS HAD--STATES "EVERY 15 MINUTES" DENIES DIARRHEA OR ABDOMINAL PAIN STATES SHE "HURTS ALL OVER" PT IS INSULIN-DEPENDENT DIABETIC, WITH LONG HISTORY OF NON-COMPLIANCE AND MULTIPLE EPISODES OF DKA--THIS IS 6TH ADMIT HERE IN THE LAST 13 MONTHS FOR DKA LAST VISIT AND ADMIT HERE WAS -05/25/20--PT WAS ADMITTED FOR SEPSIS, DKA, RENAL FAILURE, ACUTE RESPIRATORY FAILURE, ASPIRATION PNEUMONIA--REQUIRED INTUBATION AND CENTRAL LINE PLACEMENT; AMONG MULTIPLE OTHER ASSOCIATED DIAGNOSES PT STATES SHE HAS NOT CHECKED HER BLOOD GLUCOSE RECENTLY, AND DOES NOT RECALL WHEN SHE LAST TOOK HER INSULIN--STATES "MAYBE YESTERDAY, BUT I'M NOT SURE" --ADMITS THAT SHE FREQUENTLY "FORGETS" TO TAKE HER INSULIN "WHEN I'M UNDER EXTREME PRESSURE LIKE I AM NOW" --THEN RAMBLES ON AT LENGTH ABOUT GETTING READY TO HAVE A GARAGE SALE AND HER [place] AND THE [place] "ARE COMING DOWN REAL HARD ON ME" PT STATES SHE DID NOT EAT AT ALL YESTERDAY, BUT HAS BEEN DRINKING ALOT OF WATER, AND HAS BEEN URINATING EVERY 15-30 MINUTES SINCE YESTERDAY AND ALL NIGHT LONG. NO REPORTED FEVER NO COUGH DENIES SHORTNESS OF BREATH HAD OUTPATIENT COVID TEST 08/03/20 AND WAS NEGATIVE. COVID TEST WAS NEGATIVE WITH ADMIT 05/16/20 PT ALSO HAS AN EXTENSIVE HISTORY OF DRUG ABUSE, INCLUDING METH AND THC--CLAIMS SHE HAS NOT USED DRUGS "NOT FOR A LONG TIME" . PT ADMITS TO REGULAR ETOH, BUT DENIES USE IN LAST 24 HOURS. PT CONTINUES TO SMOKE > 1 PPD PCP: PT STATES SHE NOW SEES A DR COLON AT [facility] IN [place] FOR PRIMARY CARE Allergies and Home Medications Allergies Coded Allergies: morphine (Verified Allergy, Mild, Vomiting, 05/20/20) orange juice (Verified Allergy, Mild, Nausea, 05/24/20) Sulfa (Sulfonamide Antibiotics) (Unverified Allergy, Unknown, 05/11/15) codeine (Verified Allergy, Unknown, TAKES ULTRAM AT HOME, 11/18/08) ketorolac (Verified Allergy, Unknown, 10/05/08) tramadol (Verified Allergy, Unknown, 11/02/11) Home Medications Albuterol Sulfate 1 Puff Puff, 2 PUFF IH TID PRN for SHORTNESS OF BREATH, (Reported) Amoxicillin/Potassium Clav 1 Each Tablet, 875 MG PO BID WITH MEALS Prescribed by: MILO PA on 05/25/201102 Ascorbic Acid 1,000 Mg Tablet, 1,000 MG PO DAILY, (Reported) Aspirin 81 Mg Tab.chew, 81 MG PO DAILY Prescribed by: MILO PA on 05/25/201102 Cholecalciferol (Vitamin D3) 25 Mcg Tablet, 25 MCG PO BID, (Reported) Diclofenac Sodium 100 Gm Gel..gram., 1 APPLIC TOP QID PRN for CRAMPS, (Reported) APPLY TO LEGS Fluconazole 100 Mg Tablet, 100 MG PO DAILY Prescribed by: MILO PA on 05/25/201102 Fluticasone Propionate 9.9 Ml [place].susp, 2 SPRAY NSEACH DAILY, (Reported) 1 SPRAY EACH NARE DAILY Furosemide 40 Mg Tablet, 40 MG PO DAILY, (Reported) Gabapentin 300 Mg Capsule, 300 MG PO TID, (Reported) Insulin Detemir 100 Unit/1 Ml Insuln.pen, 24 UNITS SC HS, (Reported) Insulin Lispro 100 Unit/1 Ml Insuln.pen, 5-15 UNITS SQ AC, (Reported) Melatonin 10 Mg Tablet, 10 MG PO HS, (Reported) Metoclopramide HCl 10 Mg Tablet, 10 MG PO QIDACHS, (Reported) Metoprolol Succinate 50 Mg Tab.er.24h, 50 MG PO DAILY Prescribed by: MILO PA on 05/25/201102 Montelukast Sodium 10 Mg Tablet, 10 MG PO HS, (Reported) LAST FILLED 11-23-2019 #15 Naloxone HCl 4 Mg [place], 1 SPRAY NS UD PRN for UNRESPONSIVE, (Reported) ADMINSTER 1 SPRAY IN 1 NOSTRIL 1 TIME- MAY REPEAT IN ALTERNATING NOSTRIL EVERY 2-3 MINUTES UNTIL RESPONSIVE OR EMS ARRIVES Omeprazole 20 Mg Capsule.dr, 20 MG PO DAILY, (Reported) Potassium Gluconate 99 Mg Tablet, 99 MG PO DAILY, (Reported) Sumatriptan Succinate 50 Mg Tablet, 50 MG PO Q2H PRN for MIGRAINE, (Reported) MAY REPEAT A DOSE IN 2 HOURS- DO NOT EXCEED 4 TABS (200MG) PER DAY Patient Home Medication List Home Medication List Reviewed: Yes Review of Systems Review of Systems Constitutional: No chills, No diaphoresis, No fever; malaise, weakness EENTM: no symptoms reported Respiratory: no symptoms reported; No cough, No short of breath Cardiovascular: no symptoms reported; No chest pain Gastrointestinal: see HPI; No abdominal pain, No constipation, No diarrhea; loss of appetite, nausea, vomiting Genitourinary: see HPI; No dysuria; frequency Musculoskeletal: see HPI (HURTS ALL OVER) Skin: no symptoms reported Psychiatric/Neurological: No Symptoms Reported Hematologic/Lymphatic: No Symptoms Reported Past Mlvuihl-Hjakrb-Ucebih Hx Past Med/Social Hx: Reviewed and Corrections made Patient Social History Alcohol Use: Regular Use (DRINKS "A COUPLE OF DRINKS" SEVERAL DAYS/WEEK) Recreational Drug Use: Yes (METH, THC) Drug of Choice: METH, THC Smoking Status: Current Everyday Smoker (> 1PPD) Type Used: Cigarettes 2nd Hand Smoke Exposure: No Recent Foreign Travel: No Contact w/Someone Who Travel: No Recent Infectious Disease Expo: No Recent Hopitalizations: No Immunizations Up To Date Tetanus Booster (TDap): Unknown Date of Pneumonia Vaccine: Aug 17, 2012 Date of Influenza Vaccine: Aug 17, 2012 Seasonal Allergies Seasonal Allergies: No Past Medical History Surgeries: Yes (URETERAL STENTS) Abdominal, Adenoidectomy, Ear Surgery, Hysterectomy, Renal, Tonsillectomy, Tubal Ligation Respiratory: Yes (INTUBATED 05/16/20 WITH DKA/RESP FAILURE) Asthma, Pneumonia, Chronic Bronchitis Cardiac: Yes Deep Vein Thrombosis, High Cholesterol, Hypertension Neurological: Yes Neuropathy Reproductive Disorders: Yes Female Reproductive Disorders: Menstrual 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, Menopausal Genitourinary: Yes (NO DIALYSIS; URETERAL STENTS FOR KIDNEY STONES) Kidney Stones, Renal Failure Gastrointestinal: Yes (gastroparesis) Gastroesophageal Reflux, Pancreatitis, Ulcer Musculoskeletal: Yes (CHRONIC GENERALIZED PAIN) Arthritis, Rheumatoid Arthritis, Fractures Endocrine: Yes (NON-COMPLIANT; MULTIPLE EPISODES OF DKA) Diabetes, Insulin dep HEENT: Yes (S/P T&A) Tonsilitis, Glaucoma Loss of Vision: Denies Hearing Impairment: Denies Cancer: No Psychosocial: Yes (POLYSUBSTANCE ABUSE) Personality Disorder Integumentary: No Blood Disorders: No Adverse Reaction/Blood Tranf: No Family Medical History FH: thyroid cancer G8 SISTER FHx: macular degeneration 19 MOTHER Glaucoma G8 BROTHER Heart Disease, Cancer, Diabetes SOCIAL HISTORY: -ETOH--REGULAR USE--"COUPLE OF DRINKS" SEVERAL NIGHTS A WEEK -DRUGS--+ METH AND THC USE -SMOKES > 1 PPD PAST SURGICAL HISTORY: -TONSILLECTOMY AND ADENOIDECTOMY -BILATERAL TUBAL LIGATION -HYSTERECTOMY -EXPLORATORY LAPAROSCOPY -URETERAL STENTS FOR KIDNEY STONES/CYSTOSCOPIES -EAR SURGERY Physical Exam Vital Signs Vital Signs - First Documented 08/08/20 05:21 Temp 36.9 Pulse 120 Resp 22 B/P (MAP) 203/103 (136) Pulse Ox 95 O2 Delivery Room Air Capillary Refill : Less Than 3 Seconds Height, Weight, BMI Height: 5'5.00" Weight: 151lbs. 1.0oz. 68.937459bs; 28.00 BMI Method:Stated General Appearance: WD/WN, Other (HYPERVENTILATING, MOANING, DIRTY, UNKEMPT, REEKS OF CIGARETTES) HEENT: PERRL/EOMI, Other (POOR DENTITION, ORAL MUCOSA DRY) Neck: Normal Inspection Respiratory: Normal Breath Sounds, No Accessory Muscle Use, No Respiratory Distress, Other (HYPERVENTILATING, WITH RR IN 30'S) Cardiovascular: No Edema, No Murmur, Normal Peripheral Pulses, Tachycardia (IN 140'S) Gastrointestinal: Non Tender, Soft Back: No CVA Tenderness Extremity: Normal Capillary Refill, No Pedal Edema Neurologic/Psychiatric: Alert, Oriented x3, No Motor/Sensory Deficits, phlebotomy tech II- XII Norm as Tested Skin: Normal Color, Warm/Dry; No Rash Focused Exam Lactate Level 08/08/20 05:24: Lactic Acid Level 2.00 Lactic Acid Level Laboratory Tests Test 08/08/20 05:24 Lactic Acid Level 2.00 MMOL/L (0.50-2.00) Procedures/Interventions Date of ETT Placement: May 20, 2020 Time of ETT Placement: 0700 Progress/Results/Core Measures Suspected Sepsis Recent Fever Within 48 Hours: No Infection Criteria Present: None New/Unexplained Altered Menta: No Sepsis Screen: No Definite Risk SIRS Temperature: Pulse: 120 Respiratory Rate: 22 Laboratory Tests 08/08/20 05:24: White Blood Count 16.0H Blood Pressure 203 /103 Mean: 136 08/08/20 05:24: Lactic Acid Level 2.00 Laboratory Tests 08/08/20 05:24: Creatinine 2.75H, INR Comment 1.0, Platelet Count 410H, Total Bilirubin 0.6 Results/Orders Lab Results Laboratory Tests Test 08/08/20 05:23 08/08/20 05:24 08/08/20 05:43 08/08/20 06:41 Range/Units Glucometer > 600 *H > 600 *H 70-110 MG/DL White Blood Count 16.0 H 4.3-11.0 10^3/uL Red Blood Count 3.92 L 4.35-5.85 10^6/uL Hemoglobin 11.5 11.5-16.0 G/DL Hematocrit 37 35-52 % Mean Corpuscular Volume 94 80-99 FL Mean Corpuscular Hemoglobin 29 25-34 PG Mean Corpuscular Hemoglobin Concent 31 L 32-36 G/DL Red Cell Distribution Width 14.9 H 10.0-14.5 % Platelet Count 410 H 130-400 10^3/uL Mean Platelet Volume 9.6 7.4-10.4 FL Neutrophils (%) (Auto) 90 H 42-75 % Lymphocytes (%) (Auto) 7 L 12-44 % Monocytes (%) (Auto) 3 0-12 % Eosinophils (%) (Auto) 0 0-10 % Basophils (%) (Auto) 0 0-10 % Neutrophils # (Auto) 14.4 H 1.8-7.8 X 10^3 Lymphocytes # (Auto) 1.2 1.0-4.0 X 10^3 Monocytes # (Auto) 0.5 0.0-1.0 X 10^3 Eosinophils # (Auto) 0.0 0.0-0.3 10^3/uL Basophils # (Auto) 0.1 0.0-0.1 10^3/uL Neutrophils % (Manual) 87 % Lymphocytes % (Manual) 7 % Monocytes % (Manual) 3 % Band Neutrophils 3 % Blood Morphology Comment NORMAL Prothrombin Time 13.1 12.2-14.7 SEC INR Comment 1.0 0.8-1.4 Activated Partial Thromboplast Time 24 24-35 SEC Sodium Level 126 L 135-145 MMOL/L Potassium Level 5.1 H 3.6-5.0 MMOL/L Chloride Level 91 L 98-107 MMOL/L Carbon Dioxide Level 10 L 21-32 MMOL/L Anion Gap 25 H 5-14 MMOL/L Blood Urea Nitrogen 53 H 7-18 MG/DL Creatinine 2.75 H 0.60-1.30 MG/DL Estimat Glomerular Filtration Rate 18 BUN/Creatinine Ratio 19 Glucose Level 1017 *H 70-105 MG/DL Lactic Acid Level 2.00 0.50-2.00 MMOL/L Calcium Level 9.2 8.5-10.1 MG/DL Corrected Calcium 9.8 8.5-10.1 MG/DL Magnesium Level 2.4 1.6-2.4 MG/DL Total Bilirubin 0.6 0.1-1.0 MG/DL Aspartate Amino Transf (AST/SGOT) 17 5-34 U/L Alanine Aminotransferase (ALT/SGPT) 20 0-55 U/L Alkaline Phosphatase 148 H 40-136 U/L Troponin I < 0.028 <0.028 NG/ML Total Protein 7.8 6.4-8.2 GM/DL Albumin 3.3 3.2-4.5 GM/DL Amylase Level 42 25-125 U/L Lipase 66 8-78 U/L Acetaminophen Level < 10 L 10-30 UG/ML Serum Alcohol < 10 <10 MG/DL Blood Gas Puncture Site RIGHT BRACHIAL Blood Gas Patient Temperature 36.8 Arterial Blood pH 7.20 *L 7.37-7.43 Arterial Blood Partial Pressure CO2 30 L 35-45 MMHG Arterial Blood Partial Pressure O2 90 79-93 MMHG Arterial Blood HCO3 11 *L 23-27 MMOL/L Arterial Blood Total CO2 12.2 L 21.0-31.0 MMOL/L Arterial Blood Oxygen Saturation 91 L 94-100 % Arterial Blood Base Excess -15.2 L -2.5-2.5 MMOL/L Long Test NA Blood Gas Ventilator Setting NO Blood Gas Inspired Oxygen ROOM AIR My Orders Orders - LAURENCE MERAZ DO Accucheck Stat ONCE (08/08/20 05:13) Ed Iv/Invasive Line Start (08/08/20 05:13) Ekg Tracing (08/08/20 05:13) Catheter(Urinary) Insert & Ass 03,15 (08/08/20 05:13) Monitor-Rhythm Ecg Trace Only (08/08/20 05:13) Acetaminophen (08/08/20 05:13) Alcohol (08/08/20 05:13) Amylase (08/08/20 05:13) Arterial Blood Gas (08/08/20 05:40) Cbc With Automated Diff (08/08/20 05:13) Comprehensive Metabolic Panel (08/08/20 05:13) Drug Screen Stat (Urine) (08/08/20 05:13) Lactic Acid Analyzer (08/08/20 05:13) Lipase (08/08/20 05:13) Magnesium (08/08/20 05:13) Protime With Inr (08/08/20 05:13) Partial Thromboplastin Time (08/08/20 05:13) Ua Culture If Indicated (08/08/20 05:13) Troponin I (08/08/20 05:13) Ondansetron Injection (Zofran Injectio (08/08/20 05:15) Ed Iv/Invasive Line Start (08/08/20 05:13) Ns Iv 1000 Ml (Sodium Chloride 0.9%) (08/08/20 05:13) Ed Iv/Invasive Line Start (08/08/20 05:28) Ns Iv 1000 Ml (Sodium Chloride 0.9%) (08/08/20 05:28) Manual Differential (08/08/20 05:24) Insulin Regular Drip (Myxredlin 100 Unit (08/08/20 06:15) Hydralazine Injection (Apresoline Inject (08/08/20 06:15) Medications Given in ED Current Medications Medications Dose Ordered Sig/Nehemias Route Start Time Stop Time Status Last Admin Dose Admin Hydralazine HCl 10 mg ONCE ONCE IV 08/08/20 06:15 08/08/20 06:16 DC 08/08/20 06:23 10 MG Ondansetron HCl 8 mg ONCE ONCE IVP 08/08/20 05:15 08/08/20 05:17 DC 08/08/20 05:36 8 MG Vital Signs/I&O 08/08/20 05:21 Temp 36.9 Pulse 120 Resp 22 B/P (MAP) 203/103 (136) Pulse Ox 95 O2 Delivery Room Air Capillary Refill : Less Than 3 Seconds Blood Pressure Mean: 136 Progress Note : Progress Note GIVEN IV FLUIDS, AND THEN STARTED ON INSULIN DRIP GIVEN ZOFRAN--NO VOMITING DURING ER STAY GIVEN HYDRALAZINE FOR PERSISTENTLY ELEVATED BLOOD PRESSURE OF > 200 SYSTOLIC/ > 100 DIASTOLIC--BP DOWN SIGNIFICANTLY O2 SATS 91% ON ROOM AIR--UP TO 97% ON 2L/NC ECG Initial ECG Impression Date: Aug 08, 2020 Initial ECG Impression Time: 06:24 Initial ECG Rate: 144 Initial ECG Rhythm: S.Tach Initial ECG Impression: Nonspecific Changes Departure Impression Primary Impression: DKA (diabetic ketoacidoses) Additional Impressions: Dehydration Electrolyte imbalance Acute renal failure Diabetes mellitus, insulin dependent (IDDM), uncontrolled Disposition: ADMITTED INPATIENT Condition: Stable Departure-Patient Inst. Referrals: NO,LOCAL PHYSICIAN (PCP/Family) Primary Care Physician LAURENCE MERAZ DO Aug 08, 2020 05:31
[2020-08-08 05:34] LABS: BASOPHILS # (AUTO) 0.1 10^3/uL (0.0-0.1); BASOPHILS % (AUTO) 0 % (0-10); EOSINOPHILS % (AUTO) 0 % (0-10); HEMATOCRIT 37 % (35-52); HEMOGLOBIN 11.5 G/DL (11.5-16.0); LYMPHOCYTES # (AUTO) 1.2 X 10^3 (1.0-4.0); LYMPHOCYTES % (AUTO) 7 % (12-44); MEAN CORPUSCULAR HEMOGLOBIN 29 PG (25-34); MEAN CORPUSCULAR HGB CONC 31 G/DL (32-36); MEAN CORPUSCULAR VOLUME 94 FL (80-99); MEAN PLATELET VOLUME 9.6 FL (7.4-10.4); MONOCYTES # (AUTO) 0.5 X 10^3 (0.0-1.0); MONOCYTES % (AUTO) 3 % (0-12); NEUTROPHILS # (AUTO) 14.4 X 10^3 (1.8-7.8); NEUTROPHILS % (AUTO) 90 % (42-75); PLATELET COUNT 410 10^3/uL (130-400)
[2020-08-08 05:43] LABS: CHLORIDE 91 MMOL/L (98-107); POTASSIUM 5.1 MMOL/L (3.6-5.0); SODIUM 126 MMOL/L (135-145)
[2020-08-08 05:44] LABS: ALBUMIN 3.3 GM/DL (3.2-4.5)
[2020-08-08 05:45] LABS: AMYLASE 42 U/L (25-125); CALCIUM 9.2 MG/DL (8.5-10.1); PROTHROMBIN TIME PATIENT 13.1 SEC (12.2-14.7)
[2020-08-08 05:46] LABS: TOTAL PROTEIN 7.8 GM/DL (6.4-8.2)
[2020-08-08 05:47] LABS: CARBON DIOXIDE 10 MMOL/L (21-32)
[2020-08-08 05:47] LABS: ABG BASE EXCESS -15.2 MMOL/L (-2.5-2.5); ABG OXYGEN SATURATION 91 % (94-100); ABG PCO2 30 MMHG (35-45); ABG PO2 90 MMHG (79-93); ABG TCO2 12.2 MMOL/L (21.0-31.0)
[2020-08-08 05:48] LABS: BILIRUBIN,TOTAL 0.6 MG/DL (0.1-1.0)
[2020-08-08 05:50] LABS: ALKALINE PHOSPHATASE 148 U/L (40-136); CREATININE SERUM 2.75 MG/DL (0.60-1.30); GFR ESTIMATED 18
[2020-08-08 05:51] LABS: BUN/CREATININE RATIO 19
[2020-08-08 05:53] LABS: INSPIRED O2 ROOM AIR; PATIENT TEMP 36.8; VENTILATOR NO
[2020-08-08 05:53] LABS: ALANINE AMINOTRANSFERASE 20 U/L (0-55); MAGNESIUM 2.4 MG/DL (1.6-2.4)
[2020-08-08 05:54] LABS: LIPASE 66 U/L (8-78)
[2020-08-08 05:57] LABS: ACETAMINOPHEN < 10 UG/ML (10-30)
[2020-08-08 06:06] LABS: GLUCOSE 1017 MG/DL (70-105)
[2020-08-08 06:07] LABS: BAND NEUTROPHILS 3 %; LYMPHOCYTES % (MANUAL) 7 %; MONOCYTES % (MANUAL) 3 %; NEUTROPHILS % (MANUAL) 87 %; RBC MORPH NORMAL
[2020-08-08] MEDS ORDERED: hydrALAZINE (APESOLINE) 20 MG/ML VIAL IV ONE (06:15)
[2020-08-08 07:32] LABS: BILIRUBIN,URINE NEGATIVE (NEGATIVE); CLARITY,URINE CLEAR; COLOR,URINE YELLOW; GLUCOSE, URINE (UA) 3+ (NEGATIVE); KETONES,URINE 2+ (NEGATIVE); LEUKOCYTE ESTERASE ,URINE NEGATIVE (NEGATIVE); NITRITE,URINE NEGATIVE (NEGATIVE); PROTEIN,URINE 3+ (NEGATIVE)
[2020-08-08 07:44] LABS: AMORPHOUS SEDIMENT,UR MOD AMOR URATES /LPF; BACTERIA,URINE NEGATIVE /HPF
[2020-08-08 07:45] LABS: AMPHETAMINE SCREEN, URINE NEGATIVE (NEGATIVE); BENZODIAZEPINES SCREEN URINE NEGATIVE (NEGATIVE); CANNABINOID SCREEN, URINE POSITIVE (NEGATIVE); COCAINE SCREEN URINE NEGATIVE (NEGATIVE); METHAMPHETAMINE SCREEN URINE S NEGATIVE (NEGATIVE)
[2020-08-08 07:46] LABS: BARBITURATE SCREEN URINE NEGATIVE (NEGATIVE); METHADONE STAT NEGATIVE (NEGATIVE); OPIATE SCREEN URINE NEGATIVE (NEGATIVE); OXYCODONE STAT NEGATIVE (NEGATIVE); PROPOXYPHENE STAT NEGATIVE (NEGATIVE); TRICYCLIC ANTIDEPRESSANTS SCRE NEGATIVE (NEGATIVE)
[2020-08-08] MEDS ORDERED: 1/2 NS IV SOLUTION 1,000 ML IV ONE (08:01)
--- NOTE | 2020-08-08 08:43 | Pulmonary Consultation ---
ELDA SALDANA MED STUDENT 08/08/20 0843: History of Present Illness History of Present Illness Date Seen by Provider: Aug 08, 2020 Time Seen by Provider: 08:25 Date of Admission History of Present Illness Erin Woods is a 55 year old female seen today due to DKA. She reports having vomiting over the past 12 hours and diarrhea over the past 24 hours, as well as high blood sugar readings at home, which prompted her to visit the ER. She describes the diarrhea as 'firm' but more frequent than what is normal for her. She reports having fevers and chills, as well as a racing heart beat. Has a cough she associates with vomiting, and reports being SOB. O2 Sat in mid 90s on room air. Reports having significant stress at home. Negative COVID 08/03. Allergies and Home Medications Allergies Coded Allergies: morphine (Verified Allergy, Mild, Vomiting, 05/20/20) orange juice (Verified Allergy, Mild, Nausea, 05/24/20) Sulfa (Sulfonamide Antibiotics) (Unverified Allergy, Unknown, 05/11/15) codeine (Verified Allergy, Unknown, TAKES ULTRAM AT HOME, 11/18/08) ketorolac (Verified Allergy, Unknown, 10/05/08) tramadol (Verified Allergy, Unknown, 11/02/11) Home Medications Albuterol Sulfate 1 Puff Puff, 2 PUFF IH TID PRN for SHORTNESS OF BREATH, (Reported) Ascorbic Acid 1,000 Mg Tablet, 1,000 MG PO DAILY, (Reported) Aspirin 81 Mg Tab.chew, 81 MG PO DAILY, (Reported) Cefdinir 300 Mg Capsule, 300 MG PO Q12H, (Reported) FILLED 08-01-2020 #14/7 DAY SUPPLY Cholecalciferol (Vitamin D3) 25 Mcg Tablet, 25 MCG PO BID, (Reported) Diclofenac Sodium 100 Gm Gel..gram., 1 APPLIC TOP QID PRN for CRAMPS, (Reported) APPLY TO LEGS Fluticasone Propionate 9.9 Ml [place].susp, 2 SPRAY NSEACH DAILY, (Reported) 1 SPRAY EACH NARE DAILY Furosemide 40 Mg Tablet, 40 MG PO DAILY, (Reported) Gabapentin 300 Mg Capsule, 300 MG PO DAILY, (Reported) Gabapentin 300 Mg Capsule, 600 MG PO 1200,2200, (Reported) TAKES 2 (300MG) TABS Insulin Detemir 100 Unit/1 Ml Insuln.pen, 24 UNITS SC HS, (Reported) Insulin Lispro 100 Unit/1 Ml Insuln.pen, 5-15 UNITS SQ AC, (Reported) Melatonin 10 Mg Tablet, 10 MG PO HS, (Reported) Metoclopramide HCl 10 Mg Tablet, 10 MG PO QIDACHS, (Reported) Metoprolol Tartrate 50 Mg Tablet, 50 MG PO BID, (Reported) Montelukast Sodium 10 Mg Tablet, 10 MG PO HS, (Reported) LAST FILLED 11-23-2019 #15 Naloxone HCl 4 Mg [place], 1 SPRAY NS UD PRN for UNRESPONSIVE, (Reported) ADMINSTER 1 SPRAY IN 1 NOSTRIL 1 TIME- MAY REPEAT IN ALTERNATING NOSTRIL EVERY 2-3 MINUTES UNTIL RESPONSIVE OR EMS ARRIVES Omeprazole 20 Mg Capsule.dr, 20 MG PO DAILY, (Reported) Potassium Gluconate 99 Mg Tablet, 99 MG PO Q48H, (Reported) Sumatriptan Succinate 50 Mg Tablet, 50 MG PO Q2H PRN for MIGRAINE, (Reported) MAY REPEAT A DOSE IN 2 HOURS- DO NOT EXCEED 4 TABS (200MG) PER DAY Past Kihyzzy-Agbjhs-Hozfdv Hx Past Med/Social Hx: Reviewed and Corrections made Patient Social History Alcohol Use: Regular Use (DRINKS "A COUPLE OF DRINKS" SEVERAL DAYS/WEEK) Recreational Drug Use: Yes (METH, THC) Drug of Choice: METH, THC Smoking Status: Current Everyday Smoker (> 1PPD) Type Used: Cigarettes 2nd Hand Smoke Exposure: No Recent Foreign Travel: No Contact w/Someone Who Travel: No Recent Infectious Disease Expo: No Recent Hopitalizations: No Physical Abuse: No Sexual Abuse: No Mistreated: No Fear: No Immunizations Up To Date Tetanus Booster (TDap): Unknown Date of Pneumonia Vaccine: Aug 17, 2012 Date of Influenza Vaccine: Aug 17, 2012 Seasonal Allergies Seasonal Allergies: No Past Medical History Surgeries: Yes (URETERAL STENTS) Abdominal, Adenoidectomy, Ear Surgery, Hysterectomy, Renal, Tonsillectomy, Tubal Ligation Respiratory: Yes (INTUBATED 05/16/20 WITH DKA/RESP FAILURE) Asthma, Pneumonia, Chronic Bronchitis Cardiac: Yes Deep Vein Thrombosis, High Cholesterol, Hypertension Neurological: Yes Neuropathy Reproductive Disorders: Yes Female 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, Menopausal Genitourinary: Yes (NO DIALYSIS; URETERAL STENTS FOR KIDNEY STONES) Kidney Stones, Renal Failure Gastrointestinal: Yes (gastroparesis) Gastroesophageal Reflux, Pancreatitis, Ulcer Musculoskeletal: Yes (CHRONIC GENERALIZED PAIN) Arthritis, Rheumatoid Arthritis, Fractures Endocrine: Yes (NON-COMPLIANT; MULTIPLE EPISODES OF DKA) Diabetes, Insulin dep HEENT: Yes (S/P T&A) Tonsilitis, Glaucoma Loss of Vision: Denies Hearing Impairment: Denies Cancer: No Psychosocial: Yes (POLYSUBSTANCE ABUSE) Personality Disorder Integumentary: No Blood Disorders: No Adverse Reaction/Blood Tranf: No Family Medical History FH: thyroid cancer G8 SISTER FHx: macular degeneration 19 MOTHER Glaucoma G8 BROTHER Heart Disease, Cancer, Diabetes SOCIAL HISTORY: -ETOH--REGULAR USE--"COUPLE OF DRINKS" SEVERAL NIGHTS A WEEK -DRUGS--+ METH AND THC USE -SMOKES > 1 PPD PAST SURGICAL HISTORY: -TONSILLECTOMY AND ADENOIDECTOMY -BILATERAL TUBAL LIGATION -HYSTERECTOMY -EXPLORATORY LAPAROSCOPY -URETERAL STENTS FOR KIDNEY STONES/CYSTOSCOPIES -EAR SURGERY Review of Systems Constitutional: Fever (felt feverish at home), Chills ENT: Throat pain (associates with vomiting); No: Nose congestion Respiratory: Cough (associates with vomiting, has cough leading up to vomiting), Shortness of breath Cardiovascular: Chest Pain (one episode in ED when 'they tipped me upside down'), Palpitations (feels her heart racing) Gastrointestinal: Nausea, Vomiting, Abdominal Pain (RLQ, associates with pain that began when she was lifting boxes), Diarrhea Genitourinary: No Dysuria; Frequency; No Retention Neurological: No: Weakness, Numbness Sepsis Event Evaluation Height, Weight, BMI Height: 5'5.00" Weight: 151lbs. 1.0oz. 68.198581cp; 28.00 BMI Method:Stated Exam Exam Vital Signs Date Time Temp Pulse Resp B/P (MAP) Pulse Ox O2 Delivery O2 Flow Rate FiO2 08/08/20 07:17 146 22 136/69 (136) 94 08/08/20 05:21 36.9 120 22 203/103 (136) 95 Room Air I & O 08/08/20 07:00 Intake Total 200 ml Balance 200 ml Height & Weight Height: 5'5.00" Weight: 151lbs. 1.0oz. 68.934067rt; 28.00 BMI Method:Stated General Appearance: WD/WN, Anxious HEENT: PERRL/EOMI; No Scleral Icterus (L), No Scleral Icterus (R) Neck: Normal Inspection, Supple, Tender Midline (associates with vomiting. no crepitus, swelling, or masses noted) Respiratory: Normal Breath Sounds, No Accessory Muscle Use, No Respiratory Distress, Crackles (faint) Cardiovascular: No Murmur, Normal Peripheral Pulses, Tachycardia Capillary Refill: Less Than 3 Seconds Peripheral Pulses: 2+ Dorsalis Pedis (R), 2+ Left Dors-Pedis (L), 2+ Radial Pulses (R) (posterior tibial), 2+ Radial Pulses (L) (posterior tibial) Gastrointestinal: normal bowel sounds, soft, no organomegaly, tenderness (epi gastric and RLQ) Extremity: Normal Capillary Refill, Normal Inspection, Non Tender, No Calf Tenderness, Pedal Edema (1+) Neurologic/Psychiatric: Alert, Oriented x3 Skin: Normal Color, Warm/Dry Results Lab Laboratory Tests 08/08/20 05:24 Assessment/Plan Assessment/Plan DKA - continue NS - continue IV insulin - K 5.1, replace potassium, monitor q2h - consider beta-hydroxybutarate level ARF - IVF, monitor Anion gap metabolic acidosis - pH 7.2, monitor Neutrophilia - consider CXR - UA negative for nitrites, leukocyte esterase, bacteria Hyponatremia - continue IVF, monitor BLESSING SCHULTZ DO 08/08/20 1209: Allergies and Home Medications Allergies Coded Allergies: morphine (Verified Allergy, Mild, Vomiting, 05/20/20) orange juice (Verified Allergy, Mild, Nausea, 05/24/20) Sulfa (Sulfonamide Antibiotics) (Unverified Allergy, Unknown, 05/11/15) codeine (Verified Allergy, Unknown, TAKES ULTRAM AT HOME, 11/18/08) ketorolac (Verified Allergy, Unknown, 10/05/08) tramadol (Verified Allergy, Unknown, 11/02/11) Home Medications Albuterol Sulfate 1 Puff Puff, 2 PUFF IH TID PRN for SHORTNESS OF BREATH, (Reported) Ascorbic Acid 1,000 Mg Tablet, 1,000 MG PO DAILY, (Reported) Aspirin 81 Mg Tab.chew, 81 MG PO DAILY, (Reported) Cefdinir 300 Mg Capsule, 300 MG PO Q12H, (Reported) FILLED 08-01-2020 #14/7 DAY SUPPLY Cholecalciferol (Vitamin D3) 25 Mcg Tablet, 25 MCG PO BID, (Reported) Diclofenac Sodium 100 Gm Gel..gram., 1 APPLIC TOP QID PRN for CRAMPS, (Reported) APPLY TO LEGS Fluticasone Propionate 9.9 Ml [place]att[place].susp, 2 SPRAY NSEACH DAILY, (Reported) 1 SPRAY EACH NARE DAILY Furosemide 40 Mg Tablet, 40 MG PO DAILY, (Reported) Gabapentin 300 Mg Capsule, 300 MG PO DAILY, (Reported) Gabapentin 300 Mg Capsule, 600 MG PO 1200,2200, (Reported) TAKES 2 (300MG) TABS Insulin Detemir 100 Unit/1 Ml Insuln.pen, 24 UNITS SC HS, (Reported) Insulin Lispro 100 Unit/1 Ml Insuln.pen, 5-15 UNITS SQ AC, (Reported) Melatonin 10 Mg Tablet, 10 MG PO HS, (Reported) Metoclopramide HCl 10 Mg Tablet, 10 MG PO QIDACHS, (Reported) Metoprolol Tartrate 50 Mg Tablet, 50 MG PO BID, (Reported) Montelukast Sodium 10 Mg Tablet, 10 MG PO HS, (Reported) LAST FILLED 11-23-2019 #15 Naloxone HCl 4 Mg Rattan, 1 SPRAY NS UD PRN for UNRESPONSIVE, (Reported) ADMINSTER 1 SPRAY IN 1 NOSTRIL 1 TIME- MAY REPEAT IN ALTERNATING NOSTRIL EVERY 2-3 MINUTES UNTIL RESPONSIVE OR EMS ARRIVES Omeprazole 20 Mg Capsule.dr, 20 MG PO DAILY, (Reported) Potassium Gluconate 99 Mg Tablet, 99 MG PO Q48H, (Reported) Sumatriptan Succinate 50 Mg Tablet, 50 MG PO Q2H PRN for MIGRAINE, (Reported) MAY REPEAT A DOSE IN 2 HOURS- DO NOT EXCEED 4 TABS (200MG) PER DAY Past Dpkeism-Dboocl-Rhdrtb Hx Family Medical History FH: thyroid cancer G8 SISTER FHx: macular degeneration 19 MOTHER Glaucoma G8 BROTHER Review of Systems Time Seen by Provider: 12:09 Assessment/Plan Assessment/Plan DKA - DKA protocol SOB with N/V/D and fever per pt r/o PNA -Sesay cultures -Check COVID testing -Check CXR -Check Influenza Anemia -Monitor ARF - IVF, monitor Hyponatremia - continue IVF, monitor ELDA SALDANA MED STUDENT Aug 08, 2020 08:43 BLESSING SCHULTZ DO Aug 08, 2020 12:09
[2020-08-08 09:31] LABS: BASOPHILS % (AUTO) 0 % (0-10); EOSINOPHILS % (AUTO) 0 % (0-10); HEMATOCRIT 30 % (35-52); HEMOGLOBIN 9.7 G/DL (11.5-16.0); LYMPHOCYTES # (AUTO) 1.5 X 10^3 (1.0-4.0); LYMPHOCYTES % (AUTO) 9 % (12-44); MEAN CORPUSCULAR HEMOGLOBIN 30 PG (25-34); MEAN CORPUSCULAR HGB CONC 33 G/DL (32-36); MEAN CORPUSCULAR VOLUME 91 FL (80-99); MEAN PLATELET VOLUME 9.1 FL (7.4-10.4); MONOCYTES # (AUTO) 0.9 X 10^3 (0.0-1.0); MONOCYTES % (AUTO) 5 % (0-12); NEUTROPHILS # (AUTO) 14.1 X 10^3 (1.8-7.8); NEUTROPHILS % (AUTO) 86 % (42-75); PLATELET COUNT 347 10^3/uL (130-400); WHITE BLOOD COUNT 16.5 10^3/uL (4.3-11.0)
[2020-08-08 09:40] LABS: POTASSIUM 3.9 MMOL/L (3.6-5.0)
[2020-08-08 09:41] LABS: CALCIUM 7.9 MG/DL (8.5-10.1)
[2020-08-08] MEDS: 1/2 NS IV SOLUTION 1,000 ML IV SCH ×4 (09:43→20:42)
[2020-08-08] MEDS: POTASSIUM CL 10MEQ/50ML IVPB 50 ML IV SCH ×7 (09:43→22:29)
[2020-08-08 09:46] LABS: CREATININE SERUM 2.35 MG/DL (0.60-1.30)
[2020-08-08] MEDS ORDERED: ASPI-999 PO (10:12)
[2020-08-08] MEDS ORDERED: METO50TA15 PO (10:12)
[2020-08-08] MEDS ORDERED: CEFD300C3 PO (10:12)
[2020-08-08] MEDS ORDERED: GABA300C PO ×2 (10:12)
--- NOTE | 2020-08-08 10:14 | NUR ---
DR SERRANO NOTIFIED OF PT'S BLOOD SUGAR OF 755 NEW ORDERS RECEIVED TO LEAVE DRIP AT CURRENT RATE (10ML/HR) AND RECHECK BLOOD SUGAR IN 1 HOUR.
--- NOTE | 2020-08-08 10:40 | NUR ---
SPOKE WITH THE PT (SHE HAS HER MEDS WITH HER)WENT THRU THE EXT MED HISTORY AND LOOKED AT HER PAST DISCHARGE ORDERS TO COMPLETE THE MED REC AT THE PATIENTS LAST DISCHARGE METOPROLOL TART 50MG HAD BEEN DISCONTINUED AND METOPROLOL SUCC 50MG WAS STARTED. [facility] FILLED THE METOPROLOL SUCC ON 06-01-2020 #28/28DS BUT AFTER THAT FILL PHARMACY WENT BACK AND CONTINUED TO FILL THE METOPROLOL TART (AND THAT IS CURRENTLY WHAT THE PT HAS WITH HER). FOR THIS REASON I AM ADDING THE METOPROLOL TART BACK TO THE MED REC AND REMOVING THE METOPROLOL SUCC GABAPENTIN 300MG- PT IS DOING AN INCREASE IN HER DOSE AND AT THIS TIME SHE IS TAKING 1 TAB DAILY AND 2 TABS AT NOON & HS X 5 DAYS (SHE JUST STARTED THESE DIRECTIONS) AFTER 5 DAYS SHE WILL THEN TAKE 2 TABS TID MONTELUKAST 10MG- SHE HAS A BOTTLE DATED 11-23-2019 #15/15DS- SHE REPORTS SHE JUST FOUND THIS BOTTLE AND HAS STARTED TAKING AGAIN. ACCORDING TO THE PT AT ALL HER DOCTORS APPOINTMENTS SHE IS FORGETTING TO ASK FOR REFILLS. I DID INCLUDE THE PAST DUE FILL ON THE MED REC IMITREX- PT HAS A MEDICATION CARD/DOSEPAK OF THE 100MG WITH HER HOWEVER THIS HAS AN EXPIRATION DATE OF JANUARY 2008. SHE HAS RECENTLY FILLED THE 50MG AT [facility], THEREFORE I DID NOT INCLUDE THE 100MG AND KEPT THE 50MG ON THE MED REC THE FOLLOWING ARE MEDICATIONS THE PT SAYS SHE TAKES BUT ARE NOT WITH HER: VITAMIN C VITAMIN D3 DICLOFENAC FLONASE LEVEMIR HUMALOG KWIKPEN POTASSIUM GLUC
--- NOTE | 2020-08-08 12:08 | History & Physical-Hospitalist ---
History of Present Illness HPI/Chief Complaint Pt is a [id number] well known to me from previous admissions from [facility] who presented to the ER due to elevated blood sugars. She states it all started a couple of days ago when she got in trouble from the city for trying to have a garage sale and they made her move all of her stuff and her trailer. She states she was tehn very tired so was spacing out her insulin because she was too tired to take it. She then developed nausea and vomiting. Her blood sugar overnight at home was too high to reading prompting her to seek evaluation in the ER. She was found to be in DKA and admitted for insulin gtt. She states she is already feeling better and would like some water because she is very thirsty. Otherwise she has no comp laints. Source: patient Date Seen 08/08/20 Time Seen by a Provider: 12:04 Attending Physician Sushil Harrington MD PCP No,Local Physician Referring Physician Date of Admission Aug 08, 2020 at 07:19 Home Medications & Allergies Home Medications Reviewed patient Home Medication Reconciliation performed by pharmacy medication reconciliations cad technician and/or nursing. Patients Allergies have been reviewed. Allergies Allergies Coded Allergies morphine (Verified Allergy, Mild, Vomiting, 05/20/20) orange juice (Verified Allergy, Mild, Nausea, 05/24/20) Sulfa (Sulfonamide Antibiotics) (Unverified Allergy, Unknown, 05/11/15) codeine (Verified Allergy, Unknown, TAKES ULTRAM AT HOME, 11/18/08) ketorolac (Verified Allergy, Unknown, 10/05/08) tramadol (Verified Allergy, Unknown, 11/02/11) Past Fuwofct-Lharqx-Gffnxy Hx Past Med/Social Hx: Reviewed and Corrections made Patient Social History Alcohol Use: Regular Use (DRINKS "A COUPLE OF DRINKS" SEVERAL DAYS/WEEK) Recreational Drug Use: Yes (METH, THC) Drug of Choice: METH, THC Smoking Status: Current Everyday Smoker (> 1PPD) Type Used: Cigarettes 2nd Hand Smoke Exposure: No Recent Foreign Travel: No Contact w/other who traveled: No Recent Hopitalizations: No Recent Infectious Disease Expo: No Immunizations Up To Date Tetanus Booster (TDap): Unknown Date of Pneumonia Vaccine: Aug 17, 2012 Date of Influenza Vaccine: Aug 17, 2012 Seasonal Allergies Seasonal Allergies: No Past Medical History Surgeries: Abdominal, Adenoidectomy, Ear Surgery, Hysterectomy, Renal, Tonsillectomy, Tubal Ligation Cardiac: Deep Vein Thrombosis, High Cholesterol, Hypertension Neurological: Neuropathy Reproductive: Yes Female Reproductive Disorders: Menstrual Problems Hysterectomy, Menopausal Genitourinary: Kidney Stones, Renal Failure Gastrointestinal: Gastroesophageal Reflux, Pancreatitis, Ulcer Musculoskeletal: Arthritis, Rheumatoid Arthritis, Fractures Endocrine: Diabetes, Insulin dep HEENT: Tonsilitis, Glaucoma Loss of Vision: Denies Hearing Impairment: Denies Psychosocial: Personality Disorder History of Blood Disorders: No Adverse Reaction to Blood High: No Family History FH: thyroid cancer G8 SISTER FHx: macular degeneration 19 MOTHER Glaucoma G8 BROTHER Heart Disease, Cancer, Diabetes SOCIAL HISTORY: -ETOH--REGULAR USE--"COUPLE OF DRINKS" SEVERAL NIGHTS A WEEK -DRUGS--+ METH AND THC USE -SMOKES > 1 PPD PAST SURGICAL HISTORY: -TONSILLECTOMY AND ADENOIDECTOMY -BILATERAL TUBAL LIGATION -HYSTERECTOMY -EXPLORATORY LAPAROSCOPY -URETERAL STENTS FOR KIDNEY STONES/CYSTOSCOPIES -EAR SURGERY Review of Systems Constitutional: No chills, No fever EENTM: no symptoms reported Respiratory: No cough, No short of breath Cardiovascular: No chest pain, No palpitations Gastrointestinal: abdominal pain, nausea, vomiting Genitourinary: No decreased output Musculoskeletal: no symptoms reported Skin: no symptoms reported Psychiatric/Neurological: No Symptoms Reported Physical Exam Physical Exam Vital Signs Vital Signs - First Documented 08/08/20 05:21 Temp 36.9 Pulse 120 Resp 22 B/P (MAP) 203/103 (136) Pulse Ox 95 O2 Delivery Room Air Capillary Refill : Less Than 3 Seconds Height, Weight, BMI Height: 5'5.00" Weight: 151lbs. 1.0oz. 68.010890hv; 28.00 BMI Method:Stated General Appearance: No Apparent Distress, Chronically ill HEENT: PERRL/EOMI, Moist Mucous Membranes Neck: Normal Inspection, Supple Respiratory: Lungs Clear, No Accessory Muscle Use, No Respiratory Distress Cardiovascular: Regular Rate, Rhythm, No Murmur Gastrointestinal: Normal Bowel Sounds, Non Tender, Soft Extremity: Normal Capillary Refill, No Calf Tenderness, Pedal Edema Neurologic/Psychiatric: Alert, Oriented x3, Normal Mood/Affect Skin: Normal Color, Warm/Dry Results Results/Procedures Labs Laboratory Tests 08/08/20 05:24 08/08/20 09:19 Patient resulted labs reviewed. 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
[2020-08-08] MEDS ORDERED: ENOXAPARIN 100 MG/1 ML (LOVENOX) SYR SC SCH (12:15)
[2020-08-08] MEDS ORDERED: ENOXAPARIN 80 MG/0.8 ML (LOVENOX) SYR SC SCH (12:30)
--- NOTE | 2020-08-08 12:56 | Diagnostic Imaging Report ---
INDICATION: Shortness of breath. COMPARISON: 05/23/2020. FINDINGS: The previous dense airspace infiltrate in the periphery of the right upper lobe has resolved. No effusion or pneumothorax. Heart size within normal limits. IMPRESSION: Resolution of prior right upper lobe pneumonia. No adverse development. Dictated by: Dictated on workstation # [id number]
[2020-08-08 14:13] LABS: CALCIUM 7.9 MG/DL (8.5-10.1)
[2020-08-08 14:17] LABS: CREATININE SERUM 2.21 MG/DL (0.60-1.30)
--- NOTE | 2020-08-08 15:10 | NUR ---
LATE ENTRY: 1100 BLOOD SUGAR 488 DOWN FROM 755 INSULIN DRIP HELD X 30 MIN AND RESTARTED AT 6ML/HR 1245 BLOOD SUGAR 377 DOWN, DRIP HELD X 30 MIN AND RESTARTED AT 3.5ML/HR 1500 BLOOD SUGAR 273 HELD X 30 MIN WILL RECHECK BLOOD SUGAR Addendum: 08/08/20 at 1514 by SANDY HORTON RN ALL BLOOD SUGAR CHANGES VERIFIED BY THIS RN AND RN TRANSFORMATION CONSULTANT DELIA
--- NOTE | 2020-08-08 15:29 | NUR ---
LATE ENTRY: ORDERS RECEIVED TO COVID SWAB PT, DR SCHULTZ NOTIFIED THAT PT WAS TESTED LAST FridayJul AND TEST WAS A SEND OUT, AND TEST RESULTS CAME BACK NEGATIVE. PT NOTED TO BE AFEBRILE, PT INITIALLY STATED " ER TOLD ME I HAD A 99 TEMP", NO WHERE IS IT NOTED THAT PT HAD A LOW GRADE TEMP. ORDERS TO CANCEL COVID SWAB RECEIVED BY DR SCHULTZ.
[2020-08-08] MEDS: D5 1/2 NS 1000 ML IV SOLUTION 1,000 ML IV SCH ×2 (16:07→20:17)
[2020-08-08 16:36] LABS: POTASSIUM 4.1 MMOL/L (3.6-5.0)
[2020-08-08 16:37] LABS: CALCIUM 7.8 MG/DL (8.5-10.1)
[2020-08-08 16:41] LABS: CREATININE SERUM 2.15 MG/DL (0.60-1.30)
[2020-08-08 20:26] LABS: CALCIUM 7.6 MG/DL (8.5-10.1); CREATININE SERUM 2.13 MG/DL (0.60-1.30)
[2020-08-09] VITALS (16 sets, daily range): BP systolic 115–158; BP diastolic 63–107
[2020-08-09] MEDS: POTASSIUM CL 10MEQ/50ML IVPB 50 ML IV SCH ×3 (00:32→05:27)
[2020-08-09] MEDS: 1/2 NS IV SOLUTION 1,000 ML IV SCH ×3 (00:35→10:38)
[2020-08-09 00:51] LABS: CALCIUM 7.6 MG/DL (8.5-10.1); CREATININE SERUM 2.03 MG/DL (0.60-1.30); MAGNESIUM 1.8 MG/DL (1.6-2.4); PHOSPHORUS 2.8 MG/DL (2.3-4.7)
[2020-08-09] MEDS: D5 1/2 NS 1000 ML IV SOLUTION 1,000 ML IV SCH ×2 (03:20→07:20)
--- NOTE | 2020-08-09 04:58 | Pulmonary Progress Note ---
Subjective Time Seen by a Provider: 04:54 Subjective/Events-last exam No complications noted. Sepsis Event Evaluation Height, Weight, BMI Height: 5'5.00" Weight: 151lbs. 1.0oz. 68.781333cw; 28.00 BMI Method:Stated Focused Exam Lactate Level 08/08/20 05:24: Lactic Acid Level 2.00 Exam Exam Vital Signs Date Time Temp Pulse Resp B/P (MAP) Pulse Ox O2 Delivery O2 Flow Rate FiO2 08/09/20 04:00 Room Air 08/09/20 03:00 96 10 150/77 (101) 95 Room Air 08/09/20 02:00 94 13 156/107 (123) 93 Room Air 08/09/20 01:00 92 08/09/20 01:00 93 20 154/87 (109) 93 Room Air 08/09/20 00:00 93 20 150/80 (103) 93 Room Air 08/09/20 00:00 Room Air 08/08/20 23:00 95 19 122/66 (84) 94 Room Air 08/08/20 22:00 103 19 136/76 (96) 94 Room Air 08/08/20 21:00 102 25 131/80 (97) 95 Room Air 08/08/20 20:00 37.2 08/08/20 20:00 Room Air 08/08/20 20:00 101 19 128/70 (89) 94 Room Air 08/08/20 19:00 111 141/68 (92) 92 Room Air 08/08/20 19:00 111 08/08/20 18:00 109 23 135/65 (88) Room Air 08/08/20 17:00 108 23 117/65 (82) 90 Room Air 08/08/20 16:35 95 Room Air 08/08/20 16:00 110 23 140/67 (91) 92 Room Air 08/08/20 16:00 37.1 08/08/20 15:00 113 24 135/69 (91) 89 Room Air 08/08/20 14:16 Room Air 08/08/20 14:00 115 23 134/64 (87) 93 Nasal Cannula 2.00 08/08/20 13:00 114 28 129/59 (82) 96 Nasal Cannula 2.00 08/08/20 12:51 116 08/08/20 12:00 95 Room Air 08/08/20 12:00 115 18 111/66 (81) 96 Nasal Cannula 2.00 08/08/20 11:00 113 21 115/57 (76) 95 Nasal Cannula 2.00 08/08/20 10:00 111 22 122/57 (78) 94 Nasal Cannula 2.00 08/08/20 09:52 36.5 08/08/20 09:00 115 26 133/63 (86) 97 Nasal Cannula 2.00 08/08/20 08:21 122 08/08/20 08:15 123 21 161/79 (106) 97 Nasal Cannula 2.00 08/08/20 08:15 98 Nasal Cannula 2.00 08/08/20 07:17 146 22 136/69 (136) 94 08/08/20 05:21 36.9 120 22 203/103 (136) 95 Room Air I & O 08/09/20 07:00 Intake Total 1740 ml Output Total 2325 ml Balance -585 ml Height & Weight Height: 5'5.00" Weight: 151lbs. 1.0oz. 68.024111vg; 28.00 BMI Method:Stated General Appearance: No Apparent Distress, Chronically ill HEENT: PERRL/EOMI, Moist Mucous Membranes Neck: Normal Inspection, Supple Respiratory: Lungs Clear, No Accessory Muscle Use, No Respiratory Distress Cardiovascular: Regular Rate, Rhythm, No Murmur Capillary Refill: Less Than 3 Seconds Peripheral Pulses: 2+ Dorsalis Pedis (R), 2+ Left Dors-Pedis (L), 2+ Radial Pulses (R) (posterior tibial), 2+ Radial Pulses (L) (posterior tibial) Gastrointestinal: normal bowel sounds, soft, no organomegaly, tenderness (epigastric and RLQ) Extremity: Normal Capillary Refill, No Calf Tenderness, Pedal Edema Neurologic/Psychiatric: Alert, Oriented x3, Normal Mood/Affect Skin: Normal Color, Warm/Dry Results Lab Laboratory Tests 08/08/20 05:24 08/08/20 09:19 08/08/20 13:20 08/08/20 16:19 08/08/20 20:04 08/09/20 00:18 Assessment/Plan Assessment/Plan DKA - DKA protocol currently -Check Beta hydroxybuterate and urine ketones- if negative will d/c insulin gtt PNA -elevated leukocytosis and PCT -Start Zosyn SOB with N/V/D and fever per pt r/o PNA -Sesay cultures - pending -Check Influenza - ordered 08/09 Anemia -Monitor ARF - IVF, monitor Hyponatremia - continue IVF, monitor BLESSING SCHULTZ DO Aug 09, 2020 04:58
[2020-08-09 05:08] LABS: CALCIUM 7.6 MG/DL (8.5-10.1); CREATININE SERUM 1.98 MG/DL (0.60-1.30)
[2020-08-09] MEDS ORDERED: PIPERACILLIN/TAZOBACTAM (BULK) 4.5 GM in NS (IVPB) 100 ML IV SCH ×3 (06:15→12:00)
[2020-08-09 07:15] LABS: BILIRUBIN,URINE NEGATIVE (NEGATIVE); CLARITY,URINE CLEAR; COLOR,URINE YELLOW; GLUCOSE, URINE (UA) TRACE (NEGATIVE); KETONES,URINE NEGATIVE (NEGATIVE); LEUKOCYTE ESTERASE ,URINE TRACE (NEGATIVE); NITRITE,URINE NEGATIVE (NEGATIVE); PH,URINE 6.5 (5-9); PROTEIN,URINE 2+ (NEGATIVE)
[2020-08-09 07:34] LABS: BACTERIA,URINE TRACE /HPF; SQUAMOUS EPITHELIAL CELL,UR 0-2 /HPF
--- NOTE | 2020-08-09 07:49 | Diagnostic Imaging Report ---
INDICATION: Dyspnea Upright portable chest shows the heart size and vascularity to be upper normal. There is mild prominence of interstitium with no mass or alveolar infiltrate seen. There is no effusion or pneumothorax. There is no change from 08/08/2020 study. IMPRESSION: Stable chest. Dictated by: Dictated on workstation # [id number]
[2020-08-09] MEDS: RT-ALBUTEROL/IPRATROPIUM 3 ML (DUONEB) VIAL INH SCH ×4 (08:23→19:07)
--- NOTE | 2020-08-09 08:24 | Progress Note - Hospitalist ---
Subjective HPI/CC On Admission Date Seen by Provider: Aug 09, 2020 Time Seen by Provider: 08:21 Pt is a [id number] well known to me from previous admissions from [facility] who presented to the ER due to elevated blood sugars. She states it all started a couple of days ago when she got in trouble from the city for trying to have a garage sale and they made her move all of her stuff and her trailer. She states she was tehn very tired so was spacing out her insulin because she was too tired to take it. She then developed nausea and vomiting. Her blood sugar overnight at home was too high to reading prompting her to seek evaluation in the ER. She was found to be in DKA and admitted for insulin gtt. She states she is already feeling better and would like some water because she is very thirsty. Otherwise she has no complaints. Subjective/Events-last exam Pt reports feeling much better today. No complaints. Was able to eat breakfast and keep it down. Focused Exam Lactate Level 08/08/20 05:24: Lactic Acid Level 2.00 Objective Exam Vital Signs Vital Signs Date Time Temp Pulse Resp B/P (MAP) Pulse Ox O2 Delivery O2 Flow Rate FiO2 08/09/20 08:24 97 Room Air 08/09/20 07:21 36.8 08/09/20 06:00 94 20 146/76 (99) 08/08/20 14:00 2.00 Capillary Refill : Less Than 3 Seconds General Appearance: No Apparent Distress, Chronically ill Respiratory: Lungs Clear, No Respiratory Distress Cardiovascular: Regular Rate, Rhythm, No Murmur Neurologic/Psychiatric: Alert, Oriented x3 Results/Procedures Lab Laboratory Tests 08/08/20 09:19 08/08/20 13:20 08/08/20 16:19 08/08/20 20:04 08/09/20 00:18 08/09/20 04:11 Patient resulted labs reviewed. 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
[2020-08-09] MEDS: inSUlin ASPART (NovoLOG) 1 UNIT/0.01 ML (CHARGE PER UNIT) SC SCH ×3 (10:58→20:27)
--- NOTE | 2020-08-09 11:44 | NUR ---
PT TRANSFERRED TO ROOM 409 VIA W/C ACCOMPANIED BY THIS RN, ALL PERSONAL BELONGINGS SENT DOWN WITH PT. REPORT GIVEN TO JANINA AT BEDSIDE.
[2020-08-09] MEDS: ENOXAPARIN 80 MG/0.8 ML (LOVENOX) SYR SC SCH (12:29)
[2020-08-09] MEDS ORDERED: PIPERACILLIN/TAZOBACTAM (BULK) 4.5 GM in NS (IVPB) 100 ML IV NR (12:38)
--- NOTE | 2020-08-09 13:36 | NUR ---
RD ASSESSMENT PMHx: DVT; hypercholesterolemia; GERD; HTN; pancreatitis; RA; DM(hx of non-compliance and DKA); polysubstance use (methamphetamine, THC) PT INTERACTION: Pt was awake and pleasant during nutrition assessment. Pt states current appetite is pretty good. Note avg PO intake 100% x3meal, per chart review. Pt states following a "low-salt" diet at home and has no issues with chewing/swallowing food. Note pt has poor dentition, per visual assessment. Pt states some recent issues with nausea, vomiting, and diarrhea, and that her last BM was 08/07. Note pt not currently on bowel regimen per chart review. Pt states recent wt changes "going up and down." Note recent 11# wt loss x2mon, per chart review. Pt states current DM management is "pretty good. I have been following your advice from the last time I was here." Note recent HbA1c of 12.0 (04/2020), per chart review. Note pt has hx of non-compliance and DKA, per chart review. ABNORMAL NUTRITION-RELATED LAB VALUES LOW: Na 134; Ca 7.6; HIGH: Cl 110; BUN 41; cr 1.98; glu 154 Est. kcal needs: 1650 kcal | 20 kcal/kg Est. Pro needs: 66 g Pro | 0.8 g Pro/kg PES STATEMENT: Food- and nutrition-related knowledge deficit (NB-1.1) related to unwilling/disinterested in applying nutrition information as evidenced by pt interview | hx of non-compliance INTERVENTION: Continue with current diet order of CHO 60g/m 3snack diet. Offered and reinforced previous diet educations. Pt verbalized understanding of previous diet educations and was able to talk back information that was presented in 04/2020. Discussed importance of CHO counting and portion control. Will continue to follow and reassess as pt needs, intake, and status change. Jerzy Barbosa, MS, RD, LD
--- NOTE | 2020-08-09 14:41 | NUR ---
CM/SS visited with patient for discharge planning. Plan: Patient will return home at time of discharge. Home: Patient is living in [employer] housing and is living alone. 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 She had 2 workers pick out to start work from last visit in the hospital but they never went to fill out the paperwork. Her son also assist with any needs that she may have. Home Health: The patient reports that she has not had home health. CM/SS discussed different ideas for possible solutions on insulin shots. She reports that she will try setting an alarm on her phone at 8 a.m. and 8 p.m. This CM/SS discussed having a calendar or a sheet of paper with a box to check off when the insulin is given each morning and night. It was also discussed keeping her packaged medications next to the fridge to help her remember. CM/SS will continue to follow.
[2020-08-09] MEDS: ONDANSETRON 4 MG/2 ML (SDV) Z0FRAN IV PRN (18:25)
[2020-08-09] MEDS: PIPERACILLIN/TAZOBACTAM (BULK) 4.5 GM in NS (IVPB) 100 ML IV SCH (18:25)
[2020-08-10] VITALS: BP 162/77
[2020-08-10] MEDS: ENOXAPARIN 80 MG/0.8 ML (LOVENOX) SYR SC SCH (00:58)
[2020-08-10] MEDS: PIPERACILLIN/TAZOBACTAM (BULK) 4.5 GM in NS (IVPB) 100 ML IV SCH ×3 (03:35→18:57)
[2020-08-10 03:49] VITALS: BP 152/78
[2020-08-10 05:31] LABS: PHOSPHORUS 3.8 MG/DL (2.3-4.7)
[2020-08-10 05:33] LABS: MAGNESIUM 1.9 MG/DL (1.6-2.4)
--- NOTE | 2020-08-10 05:58 | NUR ---
pt blood glucose critical at 414, dr Harrington notified, ordered to give 20 units NovoLog.
[2020-08-10] MEDS: inSUlin ASPART (NovoLOG) 1 UNIT/0.01 ML (CHARGE PER UNIT) SC SCH ×4 (06:10→20:47)
--- NOTE | 2020-08-10 07:27 | Pulmonary Progress Note ---
Subjective Time Seen by a Provider: 07:23 Subjective/Events-last exam PT is doing better. Sepsis Event Evaluation Height, Weight, BMI Height: 5'5.00" Weight: 151lbs. 1.0oz. 68.694393dj; 28.00 BMI Method:Stated Focused Exam Lactate Level 08/08/20 05:24: Lactic Acid Level 2.00 Exam Exam Vital Signs Date Time Temp Pulse Resp B/P (MAP) Pulse Ox O2 Delivery O2 Flow Rate FiO2 08/10/20 03:49 36.8 94 20 152/78 (102) 93 Room Air 08/10/20 00:00 37.0 101 18 162/77 (105) 92 Room Air 08/09/20 19:40 Room Air 08/09/20 19:25 37.2 101 20 158/72 (100) 98 Room Air 08/09/20 19:08 95 Room Air 08/09/20 15:48 37.2 96 16 158/82 (107) 97 Room Air 08/09/20 14:59 97 Room Air 08/09/20 13:20 36.3 94 18 124/75 (91) 97 Room Air 08/09/20 12:00 Room Air 08/09/20 12:00 36.3 94 18 124/75 (91) 97 Room Air 08/09/20 11:48 36.3 94 18 124/75 (91) 97 Room Air 08/09/20 11:25 97 Room Air 08/09/20 10:00 95 19 115/63 (80) 92 Room Air 08/09/20 09:00 98 25 128/67 (87) 97 Room Air 08/09/20 08:24 97 Room Air 08/09/20 08:00 101 13 143/83 (103) 99 Room Air 08/09/20 08:00 Room Air I & O 08/10/20 07:00 Intake Total 3960 ml Output Total 1700 ml Balance 2260 ml Height & Weight Height: 5'5.00" Weight: 151lbs. 1.0oz. 68.354314cu; 28.00 BMI Method:Stated General Appearance: No Apparent Distress, Chronically ill HEENT: PERRL/EOMI, Moist Mucous Membranes Neck: Normal Inspection, Supple Respiratory: Lungs Clear, No Respiratory Distress Cardiovascular: Regular Rate, Rhythm, No Murmur Capillary Refill: Less Than 3 Seconds Peripheral Pulses: 2+ Dorsalis Pedis (R), 2+ Left Dors-Pedis (L), 2+ Radial Pulses (R) (posterior tibial), 2+ Radial Pulses (L) (posterior tibial) Gastrointestinal: normal bowel sounds, soft, no organomegaly, tenderness (epigastric and RLQ) Extremity: Normal Capillary Refill, No Calf Tenderness, Pedal Edema Neurologic/Psychiatric: Alert, Oriented x3 Skin: Normal Color, Warm/Dry Results Lab Laboratory Tests 08/08/20 09:19 08/08/20 13:20 08/08/20 16:19 08/08/20 20:04 08/09/20 00:18 08/09/20 04:11 Assessment/Plan Assessment/Plan DKA - resolved PNA -Continue Zosyn -Repeat Labs SOB with N/V/D and fever per pt r/o PNA -Sesay cultures - pending Anemia -Monitor ARF - IVF, monitor Hyponatremia - continue IVF, monitor I am going to sign off please call with any questions. BLESSING SCHULTZ DO Aug 10, 2020 07:27
[2020-08-10 07:40] VITALS: BP 181/74
[2020-08-10] MEDS: RT-ALBUTEROL/IPRATROPIUM 3 ML (DUONEB) VIAL INH SCH ×4 (07:55→19:05)
[2020-08-10 08:31] LABS: BASOPHILS # (AUTO) 0.1 10^3/uL (0.0-0.1); BASOPHILS % (AUTO) 1 % (0-10); EOSINOPHILS # (AUTO) 0.3 10^3/uL (0.0-0.3); EOSINOPHILS % (AUTO) 4 % (0-10); HEMATOCRIT 29 % (35-52); HEMOGLOBIN 9.2 g/dL (11.5-16.0); LYMPHOCYTES # (AUTO) 1.8 10^3/uL (1.0-4.0); LYMPHOCYTES % (AUTO) 24 % (12-44); MEAN CORPUSCULAR HEMOGLOBIN 30 pg (25-34); MEAN CORPUSCULAR HGB CONC 32 g/dL (32-36); MEAN CORPUSCULAR VOLUME 94 fL (80-99); MEAN PLATELET VOLUME 9.1 fL (9.0-12.2); MONOCYTES # (AUTO) 0.5 10^3/uL (0.0-1.0); MONOCYTES % (AUTO) 7 % (0-12); NEUTROPHILS # (AUTO) 4.7 10^3/uL (1.8-7.8); NEUTROPHILS % (AUTO) 64 % (42-75); PLATELET COUNT 272 10^3/uL (130-400); WHITE BLOOD COUNT 7.4 10^3/uL (4.3-11.0)
[2020-08-10 08:54] LABS: ALBUMIN 2.5 GM/DL (3.2-4.5); BILIRUBIN,TOTAL 0.3 MG/DL (0.1-1.0); CALCIUM 7.9 MG/DL (8.5-10.1); CREATININE SERUM 2.23 MG/DL (0.60-1.30); MAGNESIUM 1.9 MG/DL (1.6-2.4); PHOSPHORUS 2.7 MG/DL (2.3-4.7); POTASSIUM 4.1 MMOL/L (3.6-5.0)
[2020-08-10] MEDS: FLUTICASONE NASAL SPRAY (FLONASE) 16 GM BTL NS SCH (09:44)
[2020-08-10] MEDS: VITAMIN D3 25 MCG (1,000 UNITS) TABLET PO SCH ×2 (09:45→20:47)
[2020-08-10] MEDS: meTOprolol TARTRATE 50 MG (LOPRESSOR) TAB PO SCH ×2 (09:45→20:47)
[2020-08-10] MEDS: ASPIRIN 81 MG CHEW (CHILDREN'S ASA) PO SCH (09:45)
[2020-08-10] MEDS: GABAPENTIN 300 MG (NEURONTIN) CAP PO SCH (09:45)
[2020-08-10] MEDS: FUROSEMIDE 40 MG (LASIX) TAB PO SCH (09:46)
--- NOTE | 2020-08-10 09:47 | Progress Note - Hospitalist ---
Subjective HPI/CC On Admission Date Seen by Provider: Aug 10, 2020 Time Seen by Provider: 09:44 Pt is a [id number] well known to me from previous admissions from [facility] who presented to the ER due to elevated blood sugars. She states it all started a couple of days ago when she got in trouble from the city for trying to have a garage sale and they made her move all of her stuff and her trailer. She states she was tehn very tired so was spacing out her insulin because she was too tired to take it. She then developed nausea and vomiting. Her blood sugar overnight at home was too high to reading prompting her to seek evaluation in the ER. She was found to be in DKA and admitted for insulin gtt. She states she is already feeling better and would like some water because she is very thirsty. Otherwise she has no complaints. Subjective/Events-last exam Pt reports feeling better today. Lost IV access overnight, unable to get it replaced. Will attempt midline or PICC if able. Focused Exam Lactate Level 08/08/20 05:24: Lactic Acid Level 2.00 08/10/20 08:20: Lactic Acid Level 4.25*H Lactic Acid Level Laboratory Tests Test 08/10/20 08:20 Lactic Acid Level 4.25 MMOL/L (0.50-2.00) *H Objective Exam Vital Signs Vital Signs Date Time Temp Pulse Resp B/P (MAP) Pulse Ox O2 Delivery O2 Flow Rate FiO2 08/10/20 08:47 Room Air 08/10/20 07:56 98 08/10/20 07:40 36.2 85 20 181/74 (109) 08/08/20 14:00 2.00 Capillary Refill : Less Than 3 Seconds General Appearance: No Apparent Distress, Chronically ill Respiratory: Lungs Clear, No Respiratory Distress Cardiovascular: Regular Rate, Rhythm, No Murmur Neurologic/Psychiatric: Alert, Oriented x3 Results/Procedures Lab Laboratory Tests 08/10/20 08:20 Patient resulted labs reviewed. 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
[2020-08-10] MEDS: ONDANSETRON 4 MG/2 ML (SDV) Z0FRAN IV PRN (10:17)
[2020-08-10] MEDS: NS IV 1000 ML 1,000 ML IV SCH ×2 (10:50→22:21)
[2020-08-10 11:10] VITALS: BP 155/91
[2020-08-10] MEDS: METOCLOPRAMIDE 10 MG (REGLAN) TAB PO SCH ×3 (12:20→20:47)
[2020-08-10] MEDS: GABAPENTIN 600 MG (NEURONTIN) TAB PO SCH ×2 (12:20→20:47)
--- NOTE | 2020-08-10 12:57 | NUR ---
STEPHANIE/EDITH follow up. Updated number: [phone] CM/EDITH spoke with physician regarding Home Health and if patient would benefit. It was determined that the patient could benefit from Diabetes education and medication management due to readmissions. Home Health:CM/SS provided the patient with a patient preference form. She chose [facility]. STEPHANIE/SS contacted Mary Grace from [place] to make referral. The patient Primary Care Physician is Dr. Carrillo at the [facility]. STEPHANIE/EDITH attempted x5 to get in contact with staff to verify that the physician will follow home health orders. STEPHANIE/SS left voice mail with contact information. CM/SS will continue to follow.
--- NOTE | 2020-08-10 13:45 | Physical Therapy Progress Note ---
Therapy Progress Note Patient is currently ambulating independently in hallway without difficulty. PT did talk with patient and patient has no concerns on her mobility. Due to this, no skilled therapy indicated. 1 visit SHANIKA SHEA PT Aug 10, 2020 13:45
[2020-08-10 16:53] VITALS: BP 174/84
[2020-08-10 20:30] VITALS: BP 159/84
[2020-08-10] MEDS ORDERED: MONTELUKAST 10 MG (SINGULAIR) TAB PO SCH (21:00)
[2020-08-10] MEDS ORDERED: MELATONIN 10 MG TABLET PO SCH (21:00)
[2020-08-11] VITALS: BP 137/76
[2020-08-11] MEDS: PIPERACILLIN/TAZOBACTAM (BULK) 4.5 GM in NS (IVPB) 100 ML IV SCH ×2 (03:08→10:57)
[2020-08-11 03:37] VITALS: BP 145/85
[2020-08-11] MEDS: GABAPENTIN 300 MG (NEURONTIN) CAP PO SCH (06:15)
[2020-08-11] MEDS: inSUlin ASPART (NovoLOG) 1 UNIT/0.01 ML (CHARGE PER UNIT) SC SCH ×2 (06:15→11:27)
[2020-08-11] MEDS: METOCLOPRAMIDE 10 MG (REGLAN) TAB PO SCH ×2 (06:15→12:29)
[2020-08-11] MEDS: RT-ALBUTEROL/IPRATROPIUM 3 ML (DUONEB) VIAL INH SCH ×2 (07:34→10:33)
[2020-08-11] MEDS: NS IV 1000 ML 1,000 ML IV SCH ×2 (07:39→08:49)
[2020-08-11 08:00] VITALS: BP 190/88
[2020-08-11] MEDS: FLUTICASONE NASAL SPRAY (FLONASE) 16 GM BTL NS SCH (08:38)
[2020-08-11] MEDS: VITAMIN D3 25 MCG (1,000 UNITS) TABLET PO SCH (08:39)
[2020-08-11] MEDS: FUROSEMIDE 40 MG (LASIX) TAB PO SCH (08:39)
[2020-08-11] MEDS: meTOprolol TARTRATE 50 MG (LOPRESSOR) TAB PO SCH (08:40)
[2020-08-11] MEDS: ASPIRIN 81 MG CHEW (CHILDREN'S ASA) PO SCH (08:40)
[2020-08-11] MEDS ORDERED: ENOXAPARIN 30 MG/0.3 ML (LOVENOX) SYR SC SCH (09:00)
[2020-08-11] MEDS ORDERED: PANTOPRAZOLE 20 MG TABLET (PROTONIX) PO SCH (09:00)
[2020-08-11] MEDS ORDERED: ENOXAPARIN 80 MG/0.8 ML (LOVENOX) SYR SC SCH (09:00)
[2020-08-11 09:14] LABS: BASOPHILS # (AUTO) 0.1 10^3/uL (0.0-0.1); BASOPHILS % (AUTO) 1 % (0-10); EOSINOPHILS # (AUTO) 0.4 10^3/uL (0.0-0.3); EOSINOPHILS % (AUTO) 5 % (0-10); HEMATOCRIT 33 % (35-52); HEMOGLOBIN 10.3 g/dL (11.5-16.0); LYMPHOCYTES % (AUTO) 29 % (12-44); MEAN CORPUSCULAR HEMOGLOBIN 30 pg (25-34); MEAN CORPUSCULAR HGB CONC 31 g/dL (32-36); MEAN CORPUSCULAR VOLUME 94 fL (80-99); MEAN PLATELET VOLUME 9.3 fL (9.0-12.2); MONOCYTES # (AUTO) 0.5 10^3/uL (0.0-1.0); MONOCYTES % (AUTO) 8 % (0-12); NEUTROPHILS % (AUTO) 57 % (42-75); PLATELET COUNT 280 10^3/uL (130-400)
[2020-08-11 09:25] LABS: POTASSIUM 4.4 MMOL/L (3.6-5.0)
[2020-08-11 09:26] LABS: CALCIUM 8.5 MG/DL (8.5-10.1)
[2020-08-11 09:31] LABS: CREATININE SERUM 2.24 MG/DL (0.60-1.30); PHOSPHORUS 3.8 MG/DL (2.3-4.7)
[2020-08-11 09:33] LABS: MAGNESIUM 1.7 MG/DL (1.6-2.4)
--- NOTE | 2020-08-11 11:20 | D/C HH Face to Face Order ---
D/C Face to Face Orders Instructions for Patient Via [facility], Patient Instructions/FollowUp: Follow up with your primary care doctor to follow up this hospital stay Physician to follow Patient: Dr Carrillo Discharge Diet for Home: ADA Diet Patient Data-Allergies,Ht & Wt Patient Allergies: Coded Allergies: morphine (Verified Allergy, Mild, Vomiting, 05/20/20) orange juice (Verified Allergy, Mild, Nausea, 05/24/20) Sulfa (Sulfonamide Antibiotics) (Unverified Allergy, Unknown, 05/11/15) codeine (Verified Allergy, Unknown, TAKES ULTRAM AT HOME, 11/18/08) ketorolac (Verified Allergy, Unknown, 10/05/08) tramadol (Verified Allergy, Unknown, 11/02/11) Height (Feet): 5 Height (Inches): 5.00 Weight (Pounds): 151 Weight (Ounces): 1.0 Home Health Need/Face to Face Date of Face to Face: Aug 11, 2020 Clinical Findings: Generalized weakness and fatigue I have seen Pt [id number]: Yes Discharged To: Home Diagnosis/Conditions: DKA, IDDMII, HTN, CKD Patient is Homebound due to: Muscle weakness Homebound Status Due to the above stated illness, injury or surgical procedure (medical condition or diagnosis) and associated clinical findings, the patient is homebound because of his/her inability to leave home except with aid of a supportive device and/or person AND leaving the home requires a considerable and taxing effort or is medically contraindicated. Pt req the following assistanc: Aid of another person Home Health Nursing Orders Home Health Services Order: Nursing Services Home Health Infusion Therapy Line Start Date: Aug 08, 2020 Certify Stmt I certify that this patient is under my care and that I, a nurse practitioner or a physician; a assistant housekeeping manager working with me, had a face to face encounter that - meets the physician face to face encounter requirements with this patient as dated. TRUDI SERRANO MD Aug 11, 2020 11:20
[2020-08-11] MEDS ORDERED: AMOX-358 PO (11:23)
--- NOTE | 2020-08-11 11:26 | Discharge Summary ---
Diagnosis/Chief Complaint Date of Admission Aug 08, 2020 at 07:19 Date of Discharge Discharge Date: Aug 11, 2020 Admission Diagnosis DKA Primary Care No,Local Physician Discharge Summary Procedures/Consulations Dr Boris Yoo Discharge Physical Exam Allergies: Coded Allergies: morphine (Verified Allergy, Mild, Vomiting, 05/20/20) orange juice (Verified Allergy, Mild, Nausea, 05/24/20) Sulfa (Sulfonamide Antibiotics) (Unverified Allergy, Unknown, 05/11/15) codeine (Verified Allergy, Unknown, TAKES ULTRAM AT HOME, 11/18/08) ketorolac (Verified Allergy, Unknown, 10/05/08) tramadol (Verified Allergy, Unknown, 11/02/11) Vitals & I&Os Vital Signs Date Time Temp Pulse Resp B/P (MAP) Pulse Ox O2 Delivery O2 Flow Rate FiO2 08/11/20 15:05 37.0 88 18 145/85 97 Room Air 08/08/20 14:00 2.00 General Appearance: No Apparent Distress, Chronically ill Cardiovascular: Regular Rate, Rhythm, No Murmur Neurologic/Psychiatric: Alert, Oriented x3 Hospital Course Pt was admitted due to DKA with severe hyperglycemia. She was treated per DKA protocol with insulin gtt and recovered well. She was treated for persistent pneumonia as well and did well. She had an uneventful hospital stay. She was discharged home in stable condition to follow up with her PCP Dr Carrillo. She was discharged with nursing services for home health as she was spacing out her insulin inappropriately prior to admission. Labs (last 24 hrs) Microbiology 08/09/20 Urine Culture - Final, Complete NO GROWTH 08/08/20 Blood Culture - Preliminary, Resulted No growth 08/08/20 MRSA Screen - Final, Complete MRSA not isolated Patient resulted labs reviewed. Pending Labs Discussion & Recommendations Discharge Planning: >30 minutes discharge planning Discharge Home Medications: Active Scripts Active Augmentin 875-125 Tablet (Amoxicillin/Potassium Clav) 1 Each Tablet 1 Each PO BID Reported Metoprolol Tartrate 50 Mg Tablet 50 Mg PO BID Aspirin 81 Mg Tab.chew 81 Mg PO DAILY Neurontin (Gabapentin) 300 Mg Capsule 600 Mg PO 1200,2200 TAKES 2 (300MG) TABS Neurontin (Gabapentin) 300 Mg Capsule 300 Mg PO DAILY Sumatriptan Succinate 50 Mg Tablet 50 Mg PO Q2H PRN MDD 200MG MAY REPEAT A DOSE IN 2 HOURS- DO NOT EXCEED 4 TABS (200MG) PER DAY Vitamin D3 (Cholecalciferol (Vitamin D3)) 25 Mcg Tablet 25 Mcg PO BID Vitamin C (Ascorbic Acid) 1,000 Mg Tablet 1,000 Mg PO DAILY Melatonin 10 Mg Tablet 10 Mg PO HS Diclofenac Sodium 100 Gm Gel..gram. 1 Applic TOP QID PRN APPLY TO LEGS Levemir Flextouch (Insulin Detemir) 100 Unit/1 Ml Insuln.pen 24 Units SC HS Flonase Allergy Relief (Fluticasone Propionate) 9.9 Ml [place].susp 2 [place] NSEACH DAILY 1 SPRAY EACH NARE DAILY Furosemide 40 Mg Tablet 40 Mg PO DAILY Metoclopramide HCl 10 Mg Tablet 10 Mg PO QIDACHS Narcan (Naloxone HCl) 4 Mg [place] 1 [place] NS UD PRN ADMINSTER 1 SPRAY IN 1 NOSTRIL 1 TIME- MAY REPEAT IN ALTERNATING NOSTRIL EVERY 2-3 MINUTES UNTIL RESPONSIVE OR EMS ARRIVES Omeprazole 20 Mg Capsule.dr 20 Mg PO DAILY Humalog Kwikpen (Insulin Lispro) 100 Unit/1 Ml Insuln.pen 5-15 Units SQ AC Proair Hfa (Albuterol Sulfate) 1 Puff Puff 2 Puff IH TID PRN Potassium (Potassium Gluconate) 99 Mg Tablet 99 Mg PO Q48H Montelukast Sodium 10 Mg Tablet 10 Mg PO HS LAST FILLED 11-23-2019 #15 Instructions to patient/family Please see electronic discharge instructions given to patient. Clinical Quality Measures DVT/VTE Risk/Contraindication: Risk Factor Score Per Nursin RFS Level Per Nursing on Admit: 4+=Very High TRUDI SERRANO MD Aug 11, 2020 11:26
--- NOTE | 2020-08-11 11:51 | NUR ---
CM/SS finalized discharge. Plan: The patient will discharge home with new home health today 08/11. Patient reports her son will most likely be picking her up. Home Health: CM/SS followed up with Mary Grace from [facility]. They will follow up with Dr. Jerome to make sure she will follow home health orders. STEPHANIE/SS visited with patient. She reports that she is doing well today and is excited to have home health. She denies any further questions or concerns at this time.
[2020-08-11 12:00] VITALS: BP 197/94
[2020-08-11] MEDS: GABAPENTIN 600 MG (NEURONTIN) TAB PO SCH (12:29)
[2020-08-11] MEDS ORDERED: hydrALAZINE (APESOLINE) 20 MG/ML VIAL IV NR (13:00)
[2020-08-11 15:05] VITALS: BP 145/85
== END 2020-08-11 15:05 | disposition home or self-care (01) | DRG 637 ==
LOC: EDUNIT# 05:10 → ER 05:12 → ICU 07:19 → 4TH 08-09 11:34
PROVIDERS: ADMIT Internal Medicine; ATTEND Internal Medicine
DX: E11.00 Type 2 diabetes mellitus with hyperosmolarity without nonketotic hyperglycemic-hyperosmolar coma (NKHHC) (principal); J18.9 Pneumonia, unspecified organism; N17.9 Acute kidney failure, unspecified; E87.1 Hypo-osmolality and hyponatremia; D72.0 Genetic anomalies of leukocytes; N18.3 Chronic kidney disease, stage 3 (moderate); I12.9 Hypertensive chronic kidney disease with stage 1 through stage 4 chronic kidney disease, or unspecified chronic kidney disease; Z20.828 Contact with and (suspected) exposure to other viral communicable diseases; D63.1 Anemia in chronic kidney disease
CPT/HCPCS: 36415; 51702; 71045; 80048; 80053; 80306; 80320; 80329; 81000; 82010; 82150; 82805; 82962; 83036; 83605; 83690; 83735; 83880; 84100; 84145; 84484; 85007; 85025; 85027; 85610; 85730; 86769; 87040; 87081; 87088; 93005; 93041; 94640; 94760; 99291

== ENCOUNTER → 2020-09-16 | Outpatient (CLI) | payer MEDICAID ==
[~2020-09-16] MED LIST changes: +AMOX-358 PO; +CEFD300C3 PO
[2020-09-16 10:58] LABS: BILIRUBIN,URINE NEGATIVE (NEGATIVE); CLARITY,URINE CLEAR; COLOR,URINE YELLOW; GLUCOSE, URINE (UA) TRACE (NEGATIVE); KETONES,URINE NEGATIVE (NEGATIVE); LEUKOCYTE ESTERASE ,URINE NEGATIVE (NEGATIVE); NITRITE,URINE NEGATIVE (NEGATIVE); PROTEIN,URINE 2+ (NEGATIVE)
[2020-09-16 11:00] LABS: RETICULOCYTE % 2.09 % (0.50-2.40)
[2020-09-16 11:31] LABS: AMORPHOUS SEDIMENT,UR RARE AMOR URATES /LPF; BACTERIA,URINE TRACE /HPF; RBC,URINE 0-2 /HPF
[2020-09-18 13:18] LABS: HEPATITIS C ANTIBODY C Reactive (Non-Reactive)
== END ==
LOC: LAB 09:33
DX: N18.4 Chronic kidney disease, stage 4 (severe) (principal); R60.1 Generalized edema; E87.1 Hypo-osmolality and hyponatremia; E87.2 Acidosis; D63.1 Anemia in chronic kidney disease; E55.9 Vitamin D deficiency, unspecified
CPT/HCPCS: 36415; 80074; 81000; 82043; 82595; 82607; 82728; 82746; 83520; 83540; 84155; 84165; 85045; 86021; 86235; 86335; 86431

== ENCOUNTER → 2020-09-21 | Outpatient (CLI) | payer MEDICAID ==
[2020-09-21 11:04] LABS: CREATININE SERUM 2.75 MG/DL (0.60-1.30)
--- NOTE | 2020-09-21 12:16 | Diagnostic Imaging Report ---
PROCEDURE: CT chest without contrast. TECHNIQUE: Multiple contiguous axial images were obtained through the chest without the use of intravenous contrast. Auto Exposure Controls were utilized during the CT exam to meet ALARA standards for radiation dose reduction. DATE: September 21, 2020. COMPARISON: CT chest July 21, 2020. INDICATION: 55-year-old female, shortness of breath. Pneumonia. PROCEDURE: Axial noncontrasted CT images of the chest. Noncontrasted limits the evaluation of the mediastinum and vascular structures. FINDINGS: There are predominantly linear areas of opacification in the anterior aspect of the right upper lobe on axial image 34 at site of previously noted airspace consolidation which previously was not particularly linear in appearance. This is an improved appearance since comparison exam and may relate to residual atelectasis or improving previous consolidation suggesting the prior process was infectious or potentially inflammatory in etiology. There is also improved aeration in the right upper lobe at site of previously noted more lateral consolidation on prior axial image 29. There is predominantly linear opacification in the right lower lobe which is unchanged on axial image 29 and adjacent sequential images. At this location, there is a somewhat nodular appearing opacity on axial image 29 which measures 11 mm in size. There is no pneumothorax. There is a small right pleural effusion which is new since comparison exam. There is mild atelectasis in the left upper lobe. The heart is not enlarged. There is no pericardial effusion. There is no identified abnormally enlarged mediastinal or axillary lymph node meeting CT size criteria for adenopathy. There are bilateral renal artery stents. There is no identified acute bony abnormality. IMPRESSION: 1. Improved consolidation in the right upper lobe which likely previously related to pneumonia or inflammatory process. There is residual predominantly linear opacification in the right upper lobe, likely relating to atelectasis, scarring, or incompletely resolved prior infiltrate. 2. New small right pleural effusion. Dictated by: Dictated on workstation # [id number]
== END ==
LOC: RAD 10:39
PROVIDERS: ATTEND Nurse Practitioner Family
DX: Z01.812 Encounter for preprocedural laboratory examination (principal); J18.8 Other pneumonia, unspecified organism
CPT/HCPCS: 36415; 71250; 82565; 84520

== ENCOUNTER → 2020-10-30 | Outpatient (CLI) | payer MEDICAID ==
[~2020-10-30] MED LIST changes: -MONT10TA26 PO; +MONT10TA97 PO
[2020-10-30 11:43] LABS: BASOPHILS # (AUTO) 0.1 10^3/uL (0.0-0.1); BASOPHILS % (AUTO) 1 % (0-10); EOSINOPHILS # (AUTO) 0.2 10^3/uL (0.0-0.3); EOSINOPHILS % (AUTO) 2 % (0-10); HEMATOCRIT 34 % (35-52); HEMOGLOBIN 10.2 g/dL (11.5-16.0); LYMPHOCYTES # (AUTO) 2.2 10^3/uL (1.0-4.0); LYMPHOCYTES % (AUTO) 22 % (12-44); MEAN CORPUSCULAR HEMOGLOBIN 29 pg (25-34); MEAN CORPUSCULAR HGB CONC 30 g/dL (32-36); MEAN CORPUSCULAR VOLUME 97 fL (80-99); MEAN PLATELET VOLUME 9.4 fL (9.0-12.2); MONOCYTES # (AUTO) 0.7 10^3/uL (0.0-1.0); MONOCYTES % (AUTO) 7 % (0-12); NEUTROPHILS % (AUTO) 69 % (42-75); PLATELET COUNT 368 10^3/uL (130-400); WHITE BLOOD COUNT 10.2 10^3/uL (4.3-11.0)
[2020-10-30 12:02] LABS: ALBUMIN 3.1 GM/DL (3.2-4.5); BILIRUBIN,TOTAL 0.3 MG/DL (0.1-1.0); CALCIUM 8.5 MG/DL (8.5-10.1); CREATININE SERUM 2.64 MG/DL (0.60-1.30); POTASSIUM 4.7 MMOL/L (3.6-5.0); TOTAL PROTEIN 7.2 GM/DL (6.4-8.2)
== END ==
LOC: LAB 10:55
PROVIDERS: ATTEND Internal Medicine Nephrology
DX: B17.11 Acute hepatitis C with hepatic coma (principal); N04.9 Nephrotic syndrome with unspecified morphologic changes; N18.4 Chronic kidney disease, stage 4 (severe)
CPT/HCPCS: 36415; 80053; 85025; 86703; 86706; 86708; 86709; 87522; 87902

== ENCOUNTER 2020-11-26 10:15 | Observation (INO) | payer MEDICAID ==
[~2020-11-26] VITALS: Ht 165.1 cm; Wt 87.6 kg
--- NOTE | 2020-11-26 10:58 | NUR ---
DR HEWITT TO ROOM C [address] BY
[2020-11-26 11:33] LABS: BASOPHILS % (AUTO) 0 % (0-10); EOSINOPHILS # (AUTO) 0.1 10^3/uL (0.0-0.3); EOSINOPHILS % (AUTO) 1 % (0-10); HEMATOCRIT 36 % (35-52); LYMPHOCYTES # (AUTO) 2.6 10^3/uL (1.0-4.0); LYMPHOCYTES % (AUTO) 23 % (12-44); MEAN CORPUSCULAR HEMOGLOBIN 30 pg (25-34); MEAN CORPUSCULAR HGB CONC 34 g/dL (32-36); MEAN CORPUSCULAR VOLUME 89 fL (80-99); MEAN PLATELET VOLUME 9.9 fL (9.0-12.2); MONOCYTES % (AUTO) 9 % (0-12); NEUTROPHILS # (AUTO) 7.3 10^3/uL (1.8-7.8); NEUTROPHILS % (AUTO) 66 % (42-75); PLATELET COUNT 379 10^3/uL (130-400); WHITE BLOOD COUNT 11.2 10^3/uL (4.3-11.0)
--- NOTE | 2020-11-26 11:35 | ED Syncope ---
General Chief Complaint: Neurological Problems Stated Complaint: SEIZURE Nursing Triage Note: TO ED PER EMS. EMS WAS CALLED FOR SYNCOPE. PATIENT REPORTS THAT WAS SITTING AT KITCHEN TABLE AND PASSED OUT. REPORTS THIS HAPPENED A WEEK AGO. DID EAT AFTER AND FEELING BETTER. AND DID TAKE INSULIN. DENIES ANY COVID EXPOSURE OR SYMPTOMS. BS TO [place] TO READ BY EMS (CHARO FINCH MED STUDENT) History of Present Illness Date Seen by Provider: Nov 26, 2020 Time Seen by Provider: 10:50 Initial Comments This is a 55 y/o F who presents to the Emergency Department via EMS for a chief complaint of syncope. Her blood glucose this morning was elevated and she took 20 units of insulin at 7AM. On the way to the couch, her daughter said she had a seizure. The patient states this is the second time she had an episode and the seizure like condition is new to her since this month. According to her daughter, last Friday, the patient was walking to her car when she passed out and seized again. She knew she was going to pass out. She states she feels calm now but her head and neck still hurt. She has an old abdominal pain and denies back pain. Recently she has tried to drink 5 oz of water every hour to help her kidney and has been peeing a lot. She states she took medications this morning and noticed she lost 2.6 lbs overnight for a total of about 9 lbs of weight loss in 3d since her doctor's appointment on Friday. Her rapid weight loss has concerned her. Per her daughter, she got lightheaded and started trembling and passed out 2x today. Mother (Yessenia) [phone] Carrillo in [place] [facility] Dr. Lyles at [facility] PMHx: Hepatitis C, Diabetes type 1, congestive heart failure (CHARO FINCH MED STUDENT) Initial Comments To elaborate on comments above, the 3 syncopal events described involved a prodrome of lightheadedness and tremoring. Patient then went unresponsive for less than 1 minute after each episode. Patient had no convulsions or tremors during the unresponsive episode. It seems that the tremoring may be part of the prodrome to syncope rather than seizure activity. Patient has no history of seizure activity in the past. She has reported excessive urination recently with high blood sugars which may have caused dehydration. She had 1 syncopal episode while in the car with her daughter on Friday. Daughter noted that her hand began to tremor and she then dropped a cigarette on her chest. Her tremoring became more rapid. They pulled over and patient went unresponsive and stopped moving. Blood sugar at that time was 98. Patient then had 2 episodes today. She was feeling lightheaded while sitting at breakfast table. Her daughter helped her to the living room where she collapsed and was lowered to the floor. She reported that her blood sugar prior to that was 543 and she took 20 units of subcutaneous insulin. She was unresponsive for less than a minute. She was then alert and sweating. She did not appear to have any post ictal stat e. She ate soup and then 10 minutes later became lightheaded again and trembling ensued. She then was unresponsive for about 10 seconds. Patient was found to have a tender posterior cervical spine. C-collar was applied. (SOCO IBANEZ MD) Allergies and Home Medications Allergies Coded Allergies: morphine (Verified Allergy, Mild, Vomiting, 05/20/20) orange juice (Verified Allergy, Mild, Nausea, 05/24/20) Sulfa (Sulfonamide Antibiotics) (Unverified Allergy, Unknown, 05/11/15) codeine (Verified Allergy, Unknown, TAKES ULTRAM AT HOME, 11/18/08) ketorolac (Verified Allergy, Unknown, 10/05/08) tramadol (Verified Allergy, Unknown, 11/02/11) Home Medications Albuterol Sulfate 1 Puff Puff, 2 PUFF IH TID PRN for SHORTNESS OF BREATH, (Reported) Aspirin 81 Mg Tab.chew, 81 MG PO DAILY, (Reported) Diclofenac Sodium 100 Gm Gel..gram., 1 APPLIC TOP QID PRN for CRAMPS, (Reported) APPLY TO LEGS Ergocalciferol (Vitamin D2) 1,250 Mcg Capsule, 1,250 MCG PO THUR, (Reported) Fluticasone Propionate 9.9 Ml [place].susp, 2 SPRAY NSEACH DAILY, (Reported) Furosemide 80 Mg Tablet, 80 MG PO BID, (Reported) Gabapentin 300 Mg Capsule, 600 MG PO Q8H, (Reported) TAKES 2 (300MG) TABS Insulin Determir 1,000 Units/10 Ml Soln, 30 UNITS SQ HS, (Reported) Insulin Lispro 100 Unit/1 Ml Insuln.pen, 5-15 UNITS SQ AC, (Reported) Isosorbide Mononitrate 30 Mg Tab.er.24h, 30 MG PO DAILY, (Reported) Lorazepam 1 Mg Tablet, 1 MG PO TID PRN for ANXIETY, (Reported) Magnesium Oxide 400 Mg Tablet, 400 MG PO BID, (Reported) Melatonin 10 Mg Tablet, 10 MG PO HS, (Reported) Metoclopramide HCl 10 Mg Tablet, 10 MG PO QIDACHS, (Reported) Metolazone 5 Mg Tablet, 5 MG PO MON,WE,FR, (Reported) Metoprolol Tartrate 50 Mg Tablet, 75 MG PO BID, (Reported) TAKES 1 & (50MG) TABS Montelukast Sodium 10 Mg Tablet, 10 MG PO HS, (Reported) Multivit-Min/FA/Lycopene/Lut 1 Each Tablet, 1 EA PO DAILY, (Reported) Naloxone HCl 4 Mg [place], 1 SPRAY NS UD PRN for UNRESPONSIVE, (Reported) ADMINSTER 1 SPRAY IN 1 NOSTRIL 1 TIME- MAY REPEAT IN ALTERNATING NOSTRIL EVERY 2-3 MINUTES UNTIL RESPONSIVE OR EMS ARRIVES Omeprazole 20 Mg Capsule.dr, 20 MG PO DAILY, (Reported) Oxycodone HCl 5 Mg Tablet, 5 MG PO DAILY PRN for PAIN-SEVERE (8-10), (Reported) Torsemide 100 Mg Tablet, 100 MG PO 0800,1500, (Reported) [Iron Slow Release] 45 TAB, 45 MG PO DAILY, (Reported) Patient Home Medication List Home Medication List Reviewed: Yes (SOCO IBANEZ MD) Review of Systems EENTM: other (dry mouth) Gastrointestinal: No abdominal pain Musculoskeletal: No back pain; neck pain Psychiatric/Neurological: Headache (CHARO FINCH MED STUDENT) Constitutional: see HPI, weakness, weight loss EENTM: other (dry mouth) Respiratory: no symptoms reported Cardiovascular: see HPI Gastrointestinal: abdominal pain Genitourinary: see HPI Skin: no symptoms reported Psychiatric/Neurological: See HPI (SOCO IBANEZ MD) Past Dttkidt-Kgoobz-Lxthou Hx Past Med/Social Hx: Reviewed Nursing Past Med/Soc Hx (SOCO IBANEZ MD) Patient Social History Alcohol Use: Denies Use Recreational Drug Use: No Drug of Choice: METH, THC Smoking Status: Current Everyday Smoker Type Used: Cigarettes 2nd Hand Smoke Exposure: No Recent Foreign Travel: No Contact w/Someone Who Travel: No Recent Infectious Disease Expo: No Recent Hopitalizations: No (CHARO FINCH) Immunizations Up To Date Tetanus Booster (TDap): Unknown Date of Pneumonia Vaccine: Aug 17, 2012 Date of Influenza Vaccine: Aug 17, 2012 (CHARO FINCH) Seasonal Allergies Seasonal Allergies: No (CHARO FINCH 6Wunderkin[employer] NAVIN) Past Medical History Surgeries: Yes (URETERAL STENTS) Abdominal, Adenoidectomy, Ear Surgery, Hysterectomy, Renal, Tonsillectomy, Tubal Ligation Respiratory: Yes (INTUBATED 05/16/20 WITH DKA/RESP FAILURE) Asthma, Pneumonia, Chronic Bronchitis Cardiac: Yes Deep Vein Thrombosis, High Cholesterol, Hypertension Neurological: Yes Neuropathy Reproductive Disorders: Yes Female Reproductive Disorders: 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, Menopausal Genitourinary: Yes (NO DIALYSIS; URETERAL STENTS FOR KIDNEY STONES) Kidney Stones, Renal Failure Gastrointestinal: Yes (gastroparesis) Gastroesophageal Reflux, Pancreatitis, Ulcer Musculoskeletal: Yes (CHRONIC GENERALIZED PAIN) Arthritis, Rheumatoid Arthritis, Fractures Endocrine: Yes (NON-COMPLIANT; MULTIPLE EPISODES OF DKA) Diabetes, Insulin dep HEENT: Yes (S/P T&A) Tonsilitis, Glaucoma Loss of Vision: Denies Hearing Impairment: Denies Cancer: No Psychosocial: Yes (POLYSUBSTANCE ABUSE) Personality Disorder Integumentary: No Blood Disorders: No Adverse Reaction/Blood Tranf: No (CHARO FINCH) Cardiac: Yes (CHF) Gastrointestinal: Yes Hepatitis (hep C) (SOCO IBANEZ MD) Family Medical History FH: thyroid cancer G8 SISTER FHx: macular degeneration 19 MOTHER Glaucoma G8 BROTHER Heart Disease, Cancer, Diabetes SOCIAL HISTORY: -ETOH--REGULAR USE--"COUPLE OF DRINKS" SEVERAL NIGHTS A WEEK -DRUGS--+ METH AND THC USE -SMOKES > 1 PPD PAST SURGICAL HISTORY: -TONSILLECTOMY AND ADENOIDECTOMY -BILATERAL TUBAL LIGATION -HYSTERECTOMY -EXPLORATORY LAPAROSCOPY -URETERAL STENTS FOR KIDNEY STONES/CYSTOSCOPIES -EAR SURGERY (CHARO FINCH) Physical Exam Vital Signs Vital Signs - First Documented 11/26/20 10:16 Temp 35.0 Pulse 76 Resp 18 B/P (MAP) 107/71 (83) Pulse Ox 98 O2 Delivery Nasal Cannula O2 Flow Rate 2.00 (SOCO IBANEZ MD) Vital Signs Capillary Refill : Less Than 3 Seconds (CHARO FINCH MED STUDENT) Height, Weight, BMI Height: 5'5.00" Weight: 151lbs. 1.0oz. 68.078231ly; 28.00 BMI Method:Stated (CHARO FINCH STUDENT) General Appearance: No Apparent Distress, WD/WN HEENT: PERRL/EOMI, Normal ENT Inspection, Other (Dry oropharynx) Neck: Normal Inspection, Tender Midline Cardiovascular: Regular Rate, Rhythm, No Edema, No Murmur Respiratory: Lungs Clear, Normal Breath Sounds, No Accessory Muscle Use, No Respiratory Distress Gastrointestinal: Normal Bowel Sounds, Soft, Tenderness (Mild generalized tenderness) Extremities: Normal Inspection, No Pedal Edema Neurologic/Psychiatric: Alert, Oriented x3, No Motor/Sensory Deficits, Normal Mood/Affect, community health planning director II-XII Norm as Tested Cranial Nerves: Normal Speech, PERRL Motor/Sensory: No Motor Deficit, No Sensory Deficit Skin: Normal Color, Warm/Dry (SOCO IBANEZ MD) Procedures/Interventions Date of ETT Placement: May 20, 2020 Time of ETT Placement: 0700 (CHARO FINCH STUDENT) Progress/Results/Core Measures Results/Orders Lab Results Laboratory Tests Test 11/26/20 10:20 11/26/20 10:22 11/26/20 12:26 Range/Units Glucometer 435 *H 304 H 70-110 MG/DL White Blood Count 11.2 H 4.3-11.0 10^3/uL Red Blood Count 4.04 3.80-5.11 10^6/uL Hemoglobin 12.0 11.5-16.0 g/dL Hematocrit 36 35-52 % Mean Corpuscular Volume 89 80-99 fL Mean Corpuscular Hemoglobin 30 25-34 pg Mean Corpuscular Hemoglobin Concent 34 32-36 g/dL Red Cell Distribution Width 13.5 10.0-14.5 % Platelet Count 379 130-400 10^3/uL Mean Platelet Volume 9.9 9.0-12.2 fL Immature Granulocyte % (Auto) 1 % Neutrophils (%) (Auto) 66 42-75 % Lymphocytes (%) (Auto) 23 12-44 % Monocytes (%) (Auto) 9 0-12 % Eosinophils (%) (Auto) 1 0-10 % Basophils (%) (Auto) 0 0-10 % Neutrophils # (Auto) 7.3 1.8-7.8 10^3/uL Lymphocytes # (Auto) 2.6 1.0-4.0 10^3/uL Monocytes # (Auto) 1.0 0.0-1.0 10^3/uL Eosinophils # (Auto) 0.1 0.0-0.3 10^3/uL Basophils # (Auto) 0.0 0.0-0.1 10^3/uL Immature Granulocyte # (Auto) 0.1 0.0-0.1 10^3/uL Prothrombin Time 13.2 12.2-14.7 SEC INR Comment 1.0 0.8-1.4 Activated Partial Thromboplast Time 23 L 24-35 SEC Sodium Level 130 L 135-145 MMOL/L Potassium Level 3.6 3.6-5.0 MMOL/L Chloride Level 89 L 98-107 MMOL/L Carbon Dioxide Level 18 L 21-32 MMOL/L Anion Gap 23 H 5-14 MMOL/L Blood Urea Nitrogen 102 *H 7-18 MG/DL Creatinine 3.93 H 0.60-1.30 MG/DL Estimat Glomerular Filtration Rate 12 BUN/Creatinine Ratio 26 Glucose Level 476 *H 70-105 MG/DL Calcium Level 8.9 8.5-10.1 MG/DL Corrected Calcium 9.2 8.5-10.1 MG/DL Magnesium Level 2.0 1.6-2.4 MG/DL Total Bilirubin 0.4 0.1-1.0 MG/DL Aspartate Amino Transf (AST/SGOT) 17 5-34 U/L Alanine Aminotransferase (ALT/SGPT) 20 0-55 U/L Alkaline Phosphatase 129 40-136 U/L Troponin I < 0.028 <0.028 NG/ML Total Protein 8.2 6.4-8.2 GM/DL Albumin 3.6 3.2-4.5 GM/DL Beta-Hydroxybutyrate (Chem panel) 0.13 0.00-0.27 MMOL/L TSH [place] Testing 1.21 0.35-4.94 UIU/ML (SOCO IBANEZ MD) My Orders Orders - SOCO IBANEZ MD Cbc With Automated Diff (11/26/20 10:59) Comprehensive Metabolic Panel (11/26/20 10:59) Magnesium (11/26/20 10:59) Ua Culture If Indicated (11/26/20 10:59) Protime With Inr (11/26/20 11:14) Partial Thromboplastin Time (11/26/20 11:14) Accucheck Stat ONCE (11/26/20 11:14) Accucheck Stat ONCE (11/26/20 11:14) Ct Head/Cervical Spine Wo (11/26/20 11:14) Chest 1 View, Ap/Pa Only (11/26/20 11:17) Ed Iv/Invasive Line Start (11/26/20 11:17) Ekg Tracing (11/26/20 11:17) Monitor-Rhythm Ecg Trace Only (11/26/20 11:17) Thyroid Analyzer (11/26/20 10:22) Troponin I (11/26/20 10:22) Ns Iv 1000 Ml (Sodium Chloride 0.9%) (11/26/20 12:30) Beta Hydroxybutyrate (11/26/20 12:26) Insulin (Regular) Human (Novolin R (Per (11/26/20 12:30) (SOCO IBANEZ MD) Medications Given in ED (SOCO IBANEZ MD) Vital Signs/I&O 11/26/20 11/26/20 10:16 10:55 Temp 35.0 Pulse 76 72 Resp 18 18 B/P (MAP) 107/71 (83) 128/76 (93) Pulse Ox 98 99 O2 Delivery Nasal Cannula Nasal Cannula O2 Flow Rate 2.00 2.00 (SOCO IBANEZ MD) Blood Pressure Mean: 93 FSBG Bedside Testing Finger Stick Blood Glucose: 435 (CHARO FINCH MED STUDENT) Progress Progress Note : Time: 11:35 Progress Note - Dr. Ibanez spoke on the phone with the patient's daughter to obtain additional history information. IV line established. EKG ordered, results pending. Cardiac panel has been ordered. CXR and CT of head and neck have been ordered, results pending. PT, INR, CBC, CMP, and Mg have been ordered, results pending. (CHARO FINCH MED STUDENT) Progress Note : Progress Note C-spine was cleared after reviewing report. Patient received 2 L of IV normal saline. She received 5 units of IV insulin. Blood sugar was rapidly dropping. We have now changed to D5 1/2 normal saline as blood sugar dropped down to 185. I discussed the case with Dr. Mason and Dr. Espinoza. Patient will be admitted. A repeat BMP demonstrated improvement in anion gap and CO2. Blood glucose is well controlled. Patient was admitted to the floor with SSI. (SOCO IBANEZ MD) Initial ECG Impression Date: Nov 26, 2020 Initial ECG Impression Time: 11:17 Initial ECG Rate: 72 Initial ECG Rhythm: Normal Sinus Initial ECG Intervals: Normal Initial ECG Impression: Normal Comment Normal sinus rhythm with no ST elevation or depression. No abnormal intervals or axis deviation. (SOCO IBANEZ MD) Diagnostic Imaging Diagonstic Imaging: CT Plain Films/CT/US/NM/MRI: c-spine, head Comments NAME: LAURENCE PLEITEZ MED REC#: [id number] PT STATUS: REG ER : 1965 PHYSICIAN: SOCO IBANEZ MD ADMIT DATE: 11/26/20/ER Signed Date of Exam:11/26/20 CT HEAD/CERVICAL SPINE WO PROCEDURE: CT head and CT cervical spine without contrast. TECHNIQUE: Multiple contiguous axial images were obtained through the brain and cervical spine without the use of intravenous contrast. Sagittal and coronal reformations through the cervical spine were then performed. Auto Exposure Controls were utilized during the CT exam to meet ALARA standards for radiation dose reduction. INDICATION: Trauma, head and neck pain. FINDINGS: The ventricles are normal in size, shape, and position. There is no acute parenchymal hemorrhage, edema, or mass. There is no extra-axial mass or hemorrhage. There is no acute bony abnormality. There is normal height and alignment of the cervical vertebral bodies. There is advanced degenerative change of the disc at C4-C5 and slightly less so at C5-C6 with complete loss of disc space. There is sclerosis and cyst formation on the endplates. There is spondylosis. No fracture or other acute abnormality is seen at any level. IMPRESSION: 1. Normal CT of the head. 2. CT of the cervical spine shows degenerative changes present with no acute abnormality seen. Dictated by: Dictated on workstation # [id number] Dict: 11/26/20 1157 Trans: 11/26/20 1206 AS6 [id number] Interpreted by: JEREMIAH BLAND MD Electronically signed by: JEREMIAH BLAND MD 11/26/20 1206 Reviewed: Reviewed by Me Diagonstic Imaging: Xray Plain Films/CT/US/NM/MRI: chest Comments NAME: LAURENCE PLEITEZ [facility] REC#: [id number] PT STATUS: ADM IN : 1965 PHYSICIAN: SOCO IBANEZ MD ADMIT DATE: 11/26/20/ICU Signed Date of Exam:11/26/20 CHEST 1 VIEW, AP/PA ONLY EXAMINATION: Chest 1 view HISTORY: Wheezing, Syncope COMPARISON: Chest radiograph of 08/09/2020. FINDINGS: Heart size and pulmonary vasculature are normal. Calcifications of the aorta. The lungs are clear without consolidation, pleural effusion, or pneumothorax. The osseous structures are intact. IMPRESSION: 1. No acute radiographic abnormality in the chest. Dictated by: Dictated on workstation # [id number] Dict: 11/26/20 1209 Trans: 11/26/20 1350 AS6 [id number] Interpreted by: JEREMIAH BURNS DO Electronically signed by: JEREMIAH BURNS DO 11/26/20 1350 (SOCO IBANEZ MD) Departure Communication (Admissions) Time/Spoke to Admitting Phy: 12:35 Dr. Corbin Time/Spoke to Consulting Phy: 12:35 Dr. Espinoza (SOCO IBANEZ MD) Impression Primary Impression: Acute kidney injury superimposed on chronic kidney disease Additional Impressions: Hyperglycemia Syncope and collapse Disposition: ADMITTED INPATIENT Condition: Improved Admissions Decision to Admit Reason: Admit from ER (General) Decision to Admit/Date: Nov 26, 2020 Time/Decision to Admit Time: 11:00 (SOCO IBANEZ MD) Departure-Patient Inst. Referrals: NO,LOCAL PHYSICIAN (PCP/Family) Primary Care Physician CHARO FINCH MED STUDENT Nov 26, 2020 11:35 SOCO IBANEZ MD Nov 26, 2020 12:51
[2020-11-26 11:43] LABS: PROTHROMBIN TIME PATIENT 13.2 SEC (12.2-14.7)
[2020-11-26 11:45] LABS: ALBUMIN 3.6 GM/DL (3.2-4.5); CHLORIDE 89 MMOL/L (98-107); POTASSIUM 3.6 MMOL/L (3.6-5.0); SODIUM 130 MMOL/L (135-145)
[2020-11-26 11:46] LABS: CALCIUM 8.9 MG/DL (8.5-10.1)
[2020-11-26 11:47] LABS: TOTAL PROTEIN 8.2 GM/DL (6.4-8.2)
--- NOTE | 2020-11-26 11:47 | NUR ---
TO CT PER CART
[2020-11-26 11:49] LABS: BILIRUBIN,TOTAL 0.4 MG/DL (0.1-1.0); CARBON DIOXIDE 18 MMOL/L (21-32)
[2020-11-26 11:50] LABS: GLUCOSE 476 MG/DL (70-105)
[2020-11-26 11:51] LABS: ALKALINE PHOSPHATASE 129 U/L (40-136); CREATININE SERUM 3.93 MG/DL (0.60-1.30); GFR ESTIMATED 12
[2020-11-26 11:52] LABS: BUN/CREATININE RATIO 26
[2020-11-26 11:54] LABS: ALANINE AMINOTRANSFERASE 20 U/L (0-55)
--- NOTE | 2020-11-26 12:00 | NUR ---
EMS FLUIDS INFUSED
--- NOTE | 2020-11-26 12:03 | Diagnostic Imaging Report ---
PROCEDURE: CT head and CT cervical spine without contrast. TECHNIQUE: Multiple contiguous axial images were obtained through the brain and cervical spine without the use of intravenous contrast. Sagittal and coronal reformations through the cervical spine were then performed. Auto Exposure Controls were utilized during the CT exam to meet ALARA standards for radiation dose reduction. INDICATION: Trauma, head and neck pain. FINDINGS: The ventricles are normal in size, shape, and position. There is no acute parenchymal hemorrhage, edema, or mass. There is no extra-axial mass or hemorrhage. There is no acute bony abnormality. There is normal height and alignment of the cervical vertebral bodies. There is advanced degenerative change of the disc at C4-C5 and slightly less so at C5-C6 with complete loss of disc space. There is sclerosis and cyst formation on the endplates. There is spondylosis. No fracture or other acute abnormality is seen at any level. IMPRESSION: 1. Normal CT of the head. 2. CT of the cervical spine shows degenerative changes present with no acute abnormality seen. Dictated by: Dictated on workstation # [id number]
--- NOTE | 2020-11-26 12:12 | Diagnostic Imaging Report ---
EXAMINATION: Chest 1 view HISTORY: Wheezing, Syncope COMPARISON: Chest radiograph of 08/09/2020. FINDINGS: Heart size and pulmonary vasculature are normal. Calcifications of the aorta. The lungs are clear without consolidation, pleural effusion, or pneumothorax. The osseous structures are intact. IMPRESSION: 1. No acute radiographic abnormality in the chest. Dictated by: Dictated on workstation # [id number]
[2020-11-26 12:15] LABS: TSH (THYROID ANALYZER) 1.21 UIU/ML (0.35-4.94)
--- NOTE | 2020-11-26 12:29 | NUR ---
C COLLAR REMOVED BY DR REDDING
[2020-11-26] MEDS ORDERED: NS IV 1000 ML 1,000 ML IV SCH (12:30)
[2020-11-26] MEDS ORDERED: inSUlin (REGULAR) HUMAN 1 UNIT/0.01 ML (CHARGE PER UNIT) IV ONE (12:30)
[2020-11-26 12:50] LABS: BILIRUBIN,URINE NEGATIVE (NEGATIVE); CLARITY,URINE CLEAR; COLOR,URINE YELLOW; GLUCOSE, URINE (UA) 2+ (NEGATIVE); KETONES,URINE NEGATIVE (NEGATIVE); LEUKOCYTE ESTERASE ,URINE NEGATIVE (NEGATIVE); NITRITE,URINE NEGATIVE (NEGATIVE); PROTEIN,URINE 2+ (NEGATIVE)
[2020-11-26 13:30] LABS: BACTERIA,URINE FEW /HPF; RENAL EPITHELIAL CELLS,URINE RARE /HPF
[2020-11-26] MEDS ORDERED: D5 NS 1000 ML IV SOLUTION 1,000 ML IV ONE (13:32)
[2020-11-26] MEDS: cefTRIAXone FOR IV USE 1,000 MG in WATER (STERILE) FOR INJECTION 10 ML IV ONE ×2 (13:44→13:48)
[2020-11-26] MEDS: D5 1/2 NS 1000 ML IV SOLUTION 1,000 ML IV ONE ×2 (13:47→13:56)
--- NOTE | 2020-11-26 14:02 | NUR ---
MENDEL CALLED IN ICU INFORMED THAT WILL REPEAT LAB IF BETTER PATIENT WILL GO TO FLOOR INSTEAD OF ICU LAB DRAW AND SENT
[2020-11-26 14:13] LABS: POTASSIUM 3.5 MMOL/L (3.6-5.0)
[2020-11-26 14:14] LABS: CALCIUM 8.5 MG/DL (8.5-10.1)
[2020-11-26 14:18] LABS: CREATININE SERUM 3.43 MG/DL (0.60-1.30)
--- NOTE | 2020-11-26 15:09 | NUR ---
ICE CHIPS GIVEN
[2020-11-26] MEDS ORDERED: CATHETER FLUSH 10 ML SYR IV PRN (15:30)
[2020-11-26] MEDS ORDERED: ACETAMINOPHEN 500 MG TAB (TYLENOL) PO PRN (15:30)
[2020-11-26] MEDS ORDERED: ONDANSETRON 4 MG/2 ML (SDV) Z0FRAN IV PRN ×2 (15:30→18:15)
--- NOTE | 2020-11-26 15:43 | NUR ---
LAURENCE PLEITEZ admitted to room 416-1, with an admitting diagnosis of ACUTE ONCHRONIC RENAL FAILURE, SYNCOPE, on 11/26/20 from AM via , accompanied by STAFF.LAURENCE PLEITEZ introduced to surroundings, call light, bed controls, phone, TV, temperature control, lights, meal times, smoking policy, visitor policy, side rail policy, bathrooms and showers. Patient Rights given to patient in the handbook. LAURENCE PLEITEZ verbalizes understanding that [facility] is not responsible for the loss or damage to any personal effects or valuables that are kept in the patients posession during their hospitalization. LAURENCE PLEITEZ verbalizes understanding of Interdisciplinary Patient Education. Patient and/or family were informed about the Rapid Response Team and its purpose.
[2020-11-26] MEDS ORDERED: LORA-405 (16:00)
[2020-11-26] MEDS ORDERED: TORS100T4 PO (16:00)
[2020-11-26] MEDS ORDERED: INSU100V5 SQ (16:00)
[2020-11-26] MEDS ORDERED: METO5TAB6 PO (16:00)
[2020-11-26] MEDS ORDERED: CHOL200025 PO (16:03)
[2020-11-26 16:08] VITALS: BP 130/76
[2020-11-26] MEDS: LACTATED RINGERS 1,000 ML IV SCH (16:29)
--- NOTE | 2020-11-26 16:33 | NUR ---
patient tolerated jello, advance to ADA PER ORDER. CONT TO MONITOR. DEINES NEED OR C/O
[2020-11-26 16:40] VITALS: BP 130/76
[2020-11-26] MEDS ORDERED: polyethylene glycoL POWDER 17 GM (MIRALAX) PACK PO PRN (18:15)
[2020-11-26] MEDS ORDERED: ACETAMINOPHEN 325 MG TABLET PO PRN (18:15)
[2020-11-26] MEDS ORDERED: ONDANSETRON 4 MG (ZOFRAN) ORAL DISSOLVE TAB PO PRN (18:15)
[2020-11-26] MEDS ORDERED: ANTACID SUSP 30 ML UDC (MYLANTA) PO PRN (18:15)
[2020-11-26] MEDS ORDERED: diphenhydrAMINE 25 MG TAB (BENADRYL) PO PRN (18:15)
[2020-11-26 20:00] VITALS: BP 108/68
[2020-11-26] MEDS: SENNOSIDES 8.6 MG (SENOKOT) TAB PO SCH (20:19)
[2020-11-26] MEDS: MELATONIN 10 MG TABLET PO SCH (20:19)
[2020-11-26] MEDS: METOCLOPRAMIDE 10 MG (REGLAN) TAB PO SCH (20:19)
[2020-11-26] MEDS: MONTELUKAST 10 MG (SINGULAIR) TAB PO SCH (20:19)
[2020-11-26] MEDS: meTOprolol TARTRATE 50 MG (LOPRESSOR) TAB PO SCH (20:20)
[2020-11-26] MEDS: ENOXAPARIN 30 MG/0.3 ML (LOVENOX) SYR SC SCH (20:21)
[2020-11-26] MEDS: GABAPENTIN 400 MG (NEURONTIN) CAP PO SCH (20:21)
[2020-11-26] MEDS: inSUlin ASPART (NovoLOG) 1 UNIT/0.01 ML (CHARGE PER UNIT) SC SCH (20:21)
[2020-11-26] MEDS: DOCUSATE SODIUM 100 MG (COLACE) CAP PO SCH (20:21)
--- NOTE | 2020-11-26 20:29 | NUR ---
Patient blood glucose is 573. Call to update Dr Corbin. Order to give highest dose of SSI (9UNITS) and recheck blood glucose at 0100 and give SSI as ordered. Patient is requesting a snack and Dr Corbin said a snack is fine.
[2020-11-27] VITALS: BP 117/74
[2020-11-27] MEDS: LACTATED RINGERS 1,000 ML IV SCH ×4 (01:16→22:10)
--- NOTE | 2020-11-27 01:19 | NUR ---
Patient blood glucose at 0100 is 286. 7UNITS sliding scale insulin administered per phone order from Dr Corbin.
[2020-11-27 04:00] VITALS: BP 108/68
[2020-11-27 06:13] LABS: POTASSIUM 3.5 MMOL/L (3.6-5.0)
[2020-11-27 06:14] LABS: CALCIUM 8.9 MG/DL (8.5-10.1)
[2020-11-27 06:18] LABS: CREATININE SERUM 3.23 MG/DL (0.60-1.30); PHOSPHORUS 4.9 MG/DL (2.3-4.7)
[2020-11-27 06:21] LABS: MAGNESIUM 1.8 MG/DL (1.6-2.4)
--- NOTE | 2020-11-27 06:21 | NUR ---
Patient fasting glucose was 60. Juice and snack given. Lab draw glucose 111.
[2020-11-27] MEDS: inSUlin ASPART (NovoLOG) 1 UNIT/0.01 ML (CHARGE PER UNIT) SC SCH ×4 (06:24→20:12)
[2020-11-27] MEDS: METOCLOPRAMIDE 10 MG (REGLAN) TAB PO SCH ×4 (06:28→20:11)
[2020-11-27 08:00] VITALS: BP 124/75
[2020-11-27] MEDS ORDERED: PHARMACY TO DOSE SQ SCH (09:00)
[2020-11-27] MEDS: GABAPENTIN 400 MG (NEURONTIN) CAP PO SCH ×2 (09:14→20:11)
[2020-11-27] MEDS: DOCUSATE SODIUM 100 MG (COLACE) CAP PO SCH ×2 (09:14→20:11)
[2020-11-27] MEDS: meTOprolol TARTRATE 50 MG (LOPRESSOR) TAB PO SCH ×2 (09:14→20:12)
[2020-11-27] MEDS: ASPIRIN 81 MG CHEW (CHILDREN'S ASA) PO SCH (09:14)
[2020-11-27] MEDS: SENNOSIDES 8.6 MG (SENOKOT) TAB PO SCH ×2 (09:14→20:11)
[2020-11-27] MEDS: PANTOPRAZOLE 40 MG (PROTONIX) TAB PO SCH (09:15)
[2020-11-27] MEDS: FLUTICASONE NASAL SPRAY (FLONASE) 16 GM BTL NS SCH (09:15)
--- NOTE | 2020-11-27 10:14 | History & Physical-Hospitalist ---
SHEBA PEREIRA MED STUDENT 11/27/20 1014: History of Present Illness HPI/Chief Complaint Erin is a 55yo female presenting with syncope. She states that on Friday, she experienced dizziness/fainting while in her car. Yesterday she experienced another episode of dizziness/fainting at home after taking 20units of insulin for 543 blood sugar. She recently started a regimen of 5oz water hourly to help with kidney function and has had high urine output for the past few weeks. She has a history of poor blood sugar control and states that she has experienced similar episodes in the past. She complains of a headache 8/10 located on the posterior neck up to the back of the head, that started 2 days ago. Denies chest pain, N/V, abd pain. States that she feels short of breath and would like her Isosorb. Source: patient Exam Limitations: no limitations Date Seen 11/27/20 Time Seen by a Provider: 09:00 Attending Physician Cherelle Corbin MD PCP No,Local Physician Referring Physician Date of Admission Nov 26, 2020 at 12:40 Home Medications & Allergies Home Medications Reviewed patient Home Medication Reconciliation performed by pharmacy medication reconciliations upholstery technician and/or nursing. Patients Allergies have been reviewed. Allergies Allergies Coded Allergies morphine (Verified Allergy, Mild, Vomiting, 05/20/20) orange juice (Verified Allergy, Mild, Nausea, 05/24/20) Sulfa (Sulfonamide Antibiotics) (Unverified Allergy, Unknown, 05/11/15) codeine (Verified Allergy, Unknown, TAKES ULTRAM AT HOME, 11/18/08) ketorolac (Verified Allergy, Unknown, 10/05/08) tramadol (Verified Allergy, Unknown, 11/02/11) Past Mspnjac-Kgocyi-Vjsvht Hx Past Med/Social Hx: Reviewed Nursing Past Med/Soc Hx Patient Social History Alcohol Use: Rarely Uses Recreational Drug Use: Yes Drug of Choice: METH, THC Smoking Status: Current Everyday Smoker Type Used: Cigarettes 2nd Hand Smoke Exposure: No Physical Abuse Screen: No Sexual Abuse: No Recent Foreign Travel: No Contact w/other who traveled: No Recent Hopitalizations: No Recent Infectious Disease Expo: No Immunizations Up To Date Tetanus Booster (TDap): Unknown Date of Pneumonia Vaccine: Aug 17, 2012 Date of Influenza Vaccine: Aug 17, 2012 Seasonal Allergies Seasonal Allergies: Yes Past Medical History Surgeries: Abdominal, Adenoidectomy, Ear Surgery, Hysterectomy, Renal, Tonsillectomy, Tubal Ligation Currently Using CPAP: No Currently Using BIPAP: No Cardiac: Deep Vein Thrombosis, High Cholesterol, Hypertension Neurological: Neuropathy Reproductive: Yes Female Reproductive Disorders: Menstrual Problems Hysterectomy, Menopausal Genitourinary: Renal Failure Gastrointestinal: Gastroesophageal Reflux, Liver Disease/Jaundice, Pancreatitis, Hepatitis, Polyps, Ulcer Musculoskeletal: Arthritis, Rheumatoid Arthritis, Fractures Endocrine: Diabetes, Insulin dep Are Your Blood Sugars Over 250: Yes HEENT: Tonsilitis, Glaucoma Loss of Vision: Denies Hearing Impairment: Denies Psychosocial: Anxiety, Personality Disorder, Depression History of Blood Disorders: No Adverse Reaction to Blood High: No Family History FH: thyroid cancer G8 SISTER FHx: macular degeneration 19 MOTHER Glaucoma G8 BROTHER Heart Disease, Cancer, Diabetes SOCIAL HISTORY: -ETOH--REGULAR USE--"COUPLE OF DRINKS" SEVERAL NIGHTS A WEEK -DRUGS--+ METH AND THC USE -SMOKES > 1 PPD PAST SURGICAL HISTORY: -TONSILLECTOMY AND ADENOIDECTOMY -BILATERAL TUBAL LIGATION -HYSTERECTOMY -EXPLORATORY LAPAROSCOPY -URETERAL STENTS FOR KIDNEY STONES/CYSTOSCOPIES -EAR SURGERY Review of Systems Constitutional: No chills; dizziness; No fever; weakness, weight loss EENTM: other (pt states that she has had hearing changes, and visual "blurriness" occurring within the past month) Respiratory: dyspnea on exertion; No hemoptysis; short of breath Cardiovascular: No chest pain, No palpitations; syncope Gastrointestinal: No abdominal pain, No constipation, No diarrhea, No nausea, No vomiting Genitourinary: No dysuria, No hematuria Musculoskeletal: muscle pain (complains of pain along her L fairchild r/t SCD's); No muscle stiffness, No muscle cramps Skin: No change in color, No lesions, No pruritus, No rash Psychiatric/Neurological: Anxiety, Headache, Numbness (BUE, BLE), Paresthesia (BUE, BLE) Physical Exam Physical Exam Vital Signs Vital Signs - First Documented 11/26/20 10:16 Temp 35.0 Pulse 76 Resp 18 B/P (MAP) 107/71 (83) Pulse Ox 98 O2 Delivery Nasal Cannula O2 Flow Rate 2.00 Capillary Refill : Less Than 3 Seconds Height, Weight, BMI Height: 5'5.00" Weight: 151lbs. 1.0oz. 68.850065qw; 29.16 BMI Method:Stated General Appearance: No Apparent Distress, Chronically ill HEENT: PERRL/EOMI, Normal ENT Inspection, Other (missing multiple teeth) Neck: Full Range of Motion, Normal Inspection, Non Tender, Supple Respiratory: Chest Non Tender, Lungs Clear, Normal Breath Sounds, No Accessory Muscle Use, No Respiratory Distress Cardiovascular: Regular Rate, Rhythm, No Edema, No Gallop, No JVD, No Murmur, Normal Peripheral Pulses Gastrointestinal: Normal Bowel Sounds, Non Tender, Soft Rectal: Deferred Back: Normal Inspection, No CVA Tenderness, No Vertebral Tenderness Extremity: Normal Capillary Refill, Normal Inspection, Normal Range of Motion, Non Tender Neurologic/Psychiatric: Alert, Oriented x3, Normal Mood/Affect, Sensory Deficit (impaired sensation BUE/BLE) Skin: Normal Color, Warm/Dry Lymphatic: No Adenopathy Results Results/Procedures Labs Laboratory Tests 11/26/20 10:22 11/26/20 14:01 11/27/20 05:23 Patient resulted labs reviewed. Assessment/Plan Admission Diagnosis Syncope, acute on chronic renal failure Assessment and Plan Acute on chronic renal failure - Creatinine 3.23 Leukocytosis - WBC 11.2 IDDM - poorly controlled Pt complains of some dizziness but no syncopal episodes today. Continue to monitor labs/VS, IV fluids, sliding scale insulin Clinical Quality Measures DVT/VTE Risk/Contraindication: Risk Factor Score Per Nursin RFS Level Per Nursing on Admit: 4+=Very High TRUDI CASTELLANOS MD 11/27/20 1920: Past Tfzkwxd-Yxirix-Pecucs Hx Family History FH: thyroid cancer G8 SISTER FHx: macular degeneration 19 MOTHER Glaucoma G8 BROTHER Assessment/Plan Admission Diagnosis Admission Status: Inpatient Order (span 2 midnights) Reason for Inpatient Admission: see below Assessment and Plan Acute on Chronic Renal Failure Baseline creatinine ~2.5-2.7 Improved to 3.2 Reports follows with nephrology as an outpatient and not yet on HD but close, GFR normally in high teens per patient Continue IVF as likely prerenal Monitor UOP Continue home meds IDDMI Hypoglycemia of 60 this AM Decrease Levemir SSI Incredibly brittle but discussed that for now high is safer than low so will watch closely HTN BP well controlled, trend Supervisory-Addendum Brief Verification & Attestation Participated in pt care: history, MDM, physical Personally performed: exam, history, MDM, supervision of care Care discussed with: Medical Student Procedures: n/a Results interpretation: Verified all documentation Verification and Attestation of Medical Student E/M Service A medical student performed and documented this service in my presence. I reviewed and verified all information documented by the medical student and made modifications to such information, when appropriate. I personally performed the physical exam and medical decision making. Trudi Castellanos, Nov 27, 2020,19:21 SHEBA PEREIRA MED STUDENT Nov 27, 2020 10:14 TRUDI CASTELLANOS MD Nov 27, 2020 19:20
--- NOTE | 2020-11-27 10:34 | NUR ---
BLOOD SUGAR 403. DR. SERRANO STATES TO GIVE MAX ON SS.
[2020-11-27] MEDS ORDERED: MULT-26 PO (11:04)
[2020-11-27] MEDS ORDERED: OXYC5TAB PO (11:04)
[2020-11-27] MEDS ORDERED: ERGO50006 PO (11:04)
[2020-11-27] MEDS ORDERED: LORA-405 PO (11:04)
[2020-11-27] MEDS ORDERED: FURO80TA3 PO (11:04)
[2020-11-27] MEDS ORDERED: IRON SLOW RELEASE PO (11:04)
[2020-11-27] MEDS ORDERED: MAGN400T8 PO (11:04)
[2020-11-27] MEDS ORDERED: ISOS30TA3 PO (11:04)
--- NOTE | 2020-11-27 11:08 | Consultation-Cardiology ---
HPI-Cardiology Cardiology Consultation Date of Consultation 11/27/20 Date of Admission Time Seen by Provider: 09:00 Indication: Syncope HPI Patient is a 55 y/o female with history of CHF, HTN, CKD, DM. Presented to the ER with syncopal episode. Patient reports she was sitting at her kitchen table yesterday, began to feel nauseated with dizziness, got up to go to couch and had syncopal episode. Reports she felt better after eating/drinking. Patient reports she also had syncopal episode last week with seizure like activity while sitting in her car smoking a cigarette. Currently complaining of some fatigue. Denies any chest pain, dyspnea or further episode of dizziness/lightheadedness. Home Medications & Allergies Allergies: Coded Allergies: morphine (Verified Allergy, Mild, Vomiting, 05/20/20) orange juice (Verified Allergy, Mild, Nausea, 05/24/20) Sulfa (Sulfonamide Antibiotics) (Unverified Allergy, Unknown, 05/11/15) codeine (Verified Allergy, Unknown, TAKES ULTRAM AT HOME, 11/18/08) ketorolac (Verified Allergy, Unknown, 10/05/08) tramadol (Verified Allergy, Unknown, 11/02/11) Home Medication List Reviewed: Yes BRR-Jfinpr-Fwpehr Hx Patient Social History Alcohol Use: Rarely Uses Recreational Drug Use: Yes Drug of Choice: METH, THC Smoking Status: Current Everyday Smoker Type Used: Cigarettes 2nd Hand Smoke Exposure: No Recent Foreign Travel: No Recent Infectious Disease Expo: No Recent Hopitalizations: No Physical Abuse Screen: No Sexual Abuse: No Immunizations Up To Date Tetanus Booster (TDap): Unknown Date of Pneumonia Vaccine: Aug 17, 2012 Date of Influenza Vaccine: Aug 17, 2012 Past Medical History CHF, HTN, HLP, DM Family Medical History Significant Family History: Heart Disease, Cancer, Diabetes Family History: FH: thyroid cancer G8 SISTER FHx: macular degeneration 19 MOTHER Glaucoma G8 BROTHER Review of Systems-General Review of Systems Constitutional: see HPI; No chills; dizziness; No fever; weakness, weight loss EENTM: blurred vision Respiratory: see HPI; No cough, No dyspnea on exertion, No hemoptysis Cardiovascular: see HPI; No chest pain, No edema, No Hx of Intervention, No palpitations; syncope; No vascular heart diseas Gastrointestinal: No abdominal pain, No constipation, No diarrhea, No nausea, No vomiting Genitourinary: No dysuria, No hematuria Musculoskeletal: muscle pain (complains of pain along her L fairchild r/t SCD's); No muscle stiffness, No muscle cramps Skin: No change in color, No lesions, No pruritus, No rash Psychiatric/Neurological: Anxiety, Headache, Numbness (BUE, BLE), Paresthesia (BUE, BLE) Reviewed Test Results Reviewed Test Results Lab Laboratory Tests 11/26/20 12:26: Glucometer 304H 11/26/20 12:42: Urine Color YELLOW, Urine Clarity CLEAR, Urine pH 6.0, Urine Specific [place] 1.015L, Urine Protein 2+H, Urine Glucose (UA) 2+H, Urine Ketones NEGATIVE, Urine Nitrite NEGATIVE, Urine Bilirubin NEGATIVE, Urine Urobilinogen 0.2, Urine Leukocyte Esterase NEGATIVE, Urine RBC (Auto) TRACE-I, Urine RBC 2-5H, Urine WBC 2-5, Urine Squamous Epithelial Cells , Urine Renal Epithelial Cells RARE, Urine Crystals NONE, Urine Bacteria FEWH, Urine Casts NONE, Urine Mucus NEGATIVE, Urine Culture Indicated NO 11/26/20 13:19: Glucometer 185H 11/26/20 14:01: Sodium Level 135, Potassium Level 3.5L, Chloride Level 94L, Carbon Dioxide Level 24, Anion Gap 17H, Blood Urea Nitrogen 96H, Creatinine 3.43#H, Estimat Glomerular Filtration Rate 14, BUN/Creatinine Ratio 28, Glucose Level 144H, Calcium Level 8.5 11/26/20 19:44: Glucometer 573*H 11/27/20 01:07: Glucometer 286H 11/27/20 04:41: Glucometer 60*L 11/27/20 05:23: Sodium Level 137, Potassium Level 3.5L, Chloride Level 96L, Carbon Dioxide Level 23, Anion Gap 18H, Blood Urea Nitrogen 89H, Creatinine 3.23H, Estimat Glomerular Filtration Rate 15, BUN/Creatinine Ratio 28, Glucose Level 111H, Calcium Level 8.9, Phosphorus Level 4.9H, Magnesium Level 1.8 ECG Impression ECG Initial ECG Rhythm: Normal Sinus Physical Exam Physical Exam Vital Signs Vital Signs - First Documented 11/26/20 10:16 Temp 35.0 Pulse 76 Resp 18 B/P (MAP) 107/71 (83) Pulse Ox 98 O2 Delivery Nasal Cannula O2 Flow Rate 2.00 Capillary Refill : Less Than 3 SecondsLess Than 3 Seconds Height, Weight, BMI Height: 5'5.00" Weight: 151lbs. 1.0oz. 68.688001kp; 29.16 BMI Method:Stated General Appearance: No Apparent Distress, Chronically ill HEENT: PERRL/EOMI, Normal ENT Inspection, Other (missing multiple teeth) Neck: Full Range of Motion, Normal Inspection, Non Tender, Supple Respiratory: Chest Non Tender, Lungs Clear, Normal Breath Sounds, No Accessory Muscle Use, No Respiratory Distress Cardiovascular: Regular Rate, Rhythm, No Edema, No Gallop, No JVD, No Murmur, Normal Peripheral Pulses Gastrointestinal: Normal Bowel Sounds, Non Tender, Soft Rectal: Deferred Back: Normal Inspection, No CVA Tenderness, No Vertebral Tenderness Extremity: Normal Capillary Refill, Normal Inspection, Normal Range of Motion, Non Tender Neurologic/Psychiatric: Alert, Oriented x3, Normal Mood/Affect, Sensory Deficit (impaired sensation BUE/BLE) Skin: Normal Color, Warm/Dry Lymphatic: No Adenopathy A/P-Cardiology Admission Diagnosis Syncope CHF HTN HLP Assessment/Plan Syncope, unknown etiology. Had syncopal episode yesterday while walking to couch, reports similar episode last week while smoking cigarette in car with seizure like activity. I will continue on telemetry and continue to monitor. Monitor BP CHF, follows with Dr. Lyles. Maintained on beta silvio. Unable to tolerate JENNIFER- I/ARB secondary to CKD HTN, borderline hypotensive, continue to monitor. HLP, continue to monitor as outpatient. Acute on CKD, follows with nephrology DM, poorly controlled. Tobaccoism, educated on the importance of smoking cessation. Thank you for allowing us to participate in the management of Ms Woods. This is Gracy Rao PA-C, as a scribe for Dr. Brian. Patient was seen and evaluated with Gracy, examination performed, management plan was discussed, agree with the current scribed note, I made few changes to the note using Italic font Patient was seen and evaluated, feeling better at this time, I instructed her on increasing fluid intake, I will evaluate 2-D echocardiogram evaluate left ventricular function Patient has been following with Dr. Lyles Reporting history of heart failure. Evaluate 2-D echocardiogram to evaluate the amount of fluid I can recommend Acute renal failure on chronic renal insufficiency, need IV fluid Clinical Quality Measures DVT/VTE Risk/Contraindication: Risk Factor Score Per Nursin RFS Level Per Nursing on Admit: 4+=Very High GRACY BELTRE Nov 27, 2020 11:08 am KIKO BRIAN MD Nov 27, 2020 5:08 pm
--- NOTE | 2020-11-27 11:09 | NUR ---
SPOKE WITH THE PT, WENT THRU THE EXT MED HISTORY AND CALLED [facility] TO COMPLETE THE MED REC PT INDICATES SHE GETS HER MEDS PRE-PACKED FROM [facility]. OMEPRAZOLE 20MG WAS LAST FILLED 11-18-2020 #28/28DS- THIS IS NOT SHOWN ON THE EXT MED HISTORY ACCORDING TO THE PT SHE IS NO LONGER TAKING VALSARTAN 320MG AND LET ME KNOW IT WAS DISCONTINUED WHEN SHE WAS DISCHARGED FROM [facility] ON 11-16-2020. FARXIGA 5MG- PT SAYS SHE HAS NOT BEEN TAKING THIS MEDICATION DUE TO POSSIBLE SIDE EFFECTS, BUT SHE IS INTERESTED IN STARTING THIS MED AGAIN WHILE SHE IS HERE
[2020-11-27 11:29] VITALS: BP 150/90
--- NOTE | 2020-11-27 13:25 | NUR ---
CM/SS visited with patient for social service consult. The patient was lying in bed resting when this sw came to visit. She woke easily and was pleasant and willing to speak with this sw. Home: The patient was living alone at last admission; however, she is now living with her mother. She reports it has been going really well and she enjoys being around her mother. The patient reports that she helps her mother and her mother helps her. Diabetic Supplies: CM/SS received referral regarding affording diabetic supplies. The patient reports that she is currently able to afford her insulin and supplies. The patient has Medicaid insurance to assist with cost of medications. CM/SS discussed what the patient is doing at home to ensure she remembers her insulin. She states that her mother helps remind her daily. CM/SS addressed this due to it being a goal from last visit. Home Health: The patient was discharged in July with home health through [facility]. CM/SS contacted [facility] and spoke with Allyssa. She reports the patient declined services. CM/SS spoke with the patient. She states that she did not have a good experience with the nurse and did not like being able to only go 3 places ([facility], [facility], G[facility] appointments). The patient verbalized that she cancelled the service after day 2. CM/SS will continue to follow.
--- NOTE | 2020-11-27 14:27 | Physical Therapy Evaluation ---
PT Evaluation-General Medical Diagnosis Admission Date Nov 26, 2020 at 12:40 Medical Diagnosis: syncope Onset Date: Nov 26, 2020 Therapy Diagnosis Therapy Diagnosis: impaired mobility, strength, endurance Height/Weight Height (Feet): 5 Height (Inches): 5.00 Weight (Pounds): 151 Weight (Ounces): 1.0 Precautions Precautions/Isolations: Seizure, Standard Precautions Referral Physician: Jasmin Reason for Referral: Evaluation/Treatment Medical History Pertinent Medical History: DM, HTN, Renal Insufficiency, Rheumatoid Arthritis, Smoking Additional Medical History Past Medical History Surgeries: Yes (URETERAL STENTS) Abdominal, Adenoidectomy, Ear Surgery, Hysterectomy, Renal, Tonsillectomy, Tubal Ligation Respiratory: Yes (INTUBATED 05/16/20 WITH DKA/RESP FAILURE) Asthma, Pneumonia, Chronic Bronchitis Cardiac: Yes Deep Vein Thrombosis, High Cholesterol, Hypertension Neurological: Yes Neuropathy Reproductive Disorders: Yes Female Reproductive Disorders: Menstrual Problems CROP SPECIALIST History: Hysterectomy, Menopausal Genitourinary: Yes (NO DIALYSIS; URETERAL STENTS FOR KIDNEY STONES) Kidney Stones, Renal Failure Gastrointestinal: Yes (gastroparesis) Gastroesophageal Reflux, Pancreatitis, Ulcer Musculoskeletal: Yes (CHRONIC GENERALIZED PAIN) Arthritis, Rheumatoid Arthritis, Fractures Endocrine: Yes (NON-COMPLIANT; MULTIPLE EPISODES OF DKA) Diabetes, Insulin dep HEENT: Yes (S/P T&A) Tonsilitis, Glaucoma Loss of Vision: Denies Hearing Impairment: Denies Cancer: No Psychosocial: Yes (POLYSUBSTANCE ABUSE) Personality Disorder Social History Current Living Status: Entry Into Home: Stairs With Railing PT Steps Into Home: 6 patient states she lives with her mother Prior Prior Level of Function SCALE: Activities may be completed with or without assistive devices. 4-Qfljfjvxlx-qoeezir completes the activity by him/herself with no assistance from a helper. 5-Set-up or Clean-up Assistance-helper sets up or cleans up; patient completes activity. Marion assists only prior to or following the activity. 4-Supervision or Touching Assistance-helper provides verbal cues and/or touching/steadying and/or contact guard assistance as patient completes activity. Assistance may be provided throughout the activity or intermittently. 3-Partial/Moderate Assistance-helper does LESS THAN HALF the effort. Marion lifts, holds or supports trunk or limbs, but provides less than half the effort. 2-Substantial/Maximal Assistance-helper does MORE THAN HALF the effort. Marion lifts or holds trunk or limbs and provides more than half the effort. 4-Uxqywsrgi-bzoctu does ALL the effort. Patient does none of the effort to complete the activity. Or, the assistance of 2 or more helpers is required for the patient to complete the activity. If activity was not attempted, code reason: 7-Patient Refused. 9-Not Applicable-not attempted and the patient did not perform the activity b efore the current illness, exacerbation or injury. 10-Not Attempted due to Environmental Limitations-(lack of equipment, weather restraints, etc.). 88-Not Attempted due to Medical Conditions or Safety Concerns. Bed Mobility: 6 Transfers (B,C,W/C): 6 Gait: 6 Stairs: 6 Indoor Mobility (Ambulation): Independent Stairs: Independent PT Evaluation-Current Subjective Patient in bed pre tx, agrees to PT, has 5/10 headache and 7/10 pain in both legs she says it is neuropathy Pt/Family Goals to be independent at home Objective Patient Orientation: Person, Place, Situation ROM/Strength ROM Lower Extremities WNL Strength Lower Extremities LLE (hip flexion 3+/5, knee flexion 4+/5, knee extension 4+/5, dorsiflexion 4/5), RLE (hip flexion 3+/5, knee flexion 4+/5, knee extension 4+/5, dorsiflexion 4/5) Sensory Sensation Right Lower Extremit: Impaired Sensation Left Lower Extremity: Impaired Transfers Roll Left to Right (QC): 6 Sit to Lying (QC): 6 Lying to Sitting/Side of Bed(Q: 6 Sit to Stand (QC): 4 Chair/Rei-dk-Fbmio Xfer(QC): 4 Gait Does the Patient Walk?: Yes Mode of Locomotion: Walk Anticipated Mode of Locomotion: Walk Walk 10 feet (QC): 4 Walk 50 ft with 2 Turns(QC): 4 Walk 150 ft (QC): 4 Distance: 250' Gait Assistive Device: FWW Comments/Gait Description CGA, slow, unsteady, has some scissoring of feet, had one standing rest break Balance Sitting Static: Normal Sitting Dynamic: Normal Standing Static: Fair Standing Dynamic: Poor Treatment seated BLE exercise x20 (AP, LAQ) Assessment/Needs Patient sitting EOB post tx with nurse call, phone, tray, all needs met. Patient has unsteadiness during ambulation, needs somebody with her. Rehab Potential: Fair PT Residential Advisor Goals Residential Advisor Goals PT Residential Goals Time Frame: Dec 04, 2020 Roll Left & Right (QC): 6 Sit to Lying (QC): 6 Lying-Sitting on Side/Bed(QC): 6 Sit to Stand (QC): 6 Chair/Qtv-tx-Rnjrs Xfer(QC): 6 Toilet Transfer (QC): 6 Walk 10 feet (QC): 5 Walk 50ft with 2 Turns (QC): 5 Walk 150 ft (QC): 5 PT Plan Problem List Problem List: Activity Tolerance, Functional Strength, Safety, Balance, Gait, Transfer Treatment/Plan Treatment Plan: Continue Plan of Care Treatment Plan: Education, Functional Activity Timo, Functional Strength, Gait, Safety, Therapeutic Exercise, Transfers Treatment Duration: Dec 04, 2020 Frequency: 6 times per week Estimated Hrs Per Day: .25 hour per day Patient and/or Family Agrees t: Yes Safety Risks/Education Patient Education: Gait Training, Transfer Techniques, Safety Issues Teaching Recipient: Patient Teaching Methods: Demonstration, Discussion Response to Teaching: Reinforcement Needed Discharge Recommendations Plan Patient will perform bed mobility and transfer training, balance and endurance training, functional strengthening, stair training, gait training, and education, to improve functional mobility and independence at home. Therapy Discharge Recommendati: Home & Family Time/GCodes Time In: 1405 Time Out: 1418 Total Billed Treatment Time: 13 Total Billed Treatment 1 visit EDUARDA TOPETE PT Nov 27, 2020 14:27
--- NOTE | 2020-11-27 14:37 | NUR ---
RD ASSESSMENT PMHx: pneumonia; chronic bronchitis; DVT; hypercholesterolemia; HTN; renal failure; GERD; pancreatitis; RA; DM (hx of DKA); polysubstance use (methamphetamine, THC, tobacco); PT INTERACTION: Pt was awake and pleasant during nutrition assessment. Pt states current appetite is good. Note avg PO intake 100% x2meal, per chart review. Pt states following a low-CHO diet at home, and has no issues with chewing/swallowing food. Pt states no recent issues with nausea, vomiting, constipation, or diarrhea, and that her last BM was 11/25. Note pt currently on bowel regimen of colace BID, and senna BID, per chart review. Pt states no recent wt changes. Note recent 7# wt gain x4mon, per chart review. Pt states current DM management is pretty good, following previous diet educations "as best I can." Note recent HbA1c of 12.5 (08/08/20), per chart review. Note abnormal lab values of K 3.5 L, Cl 96 L, BUN 89 H, cr 3.23 H, glu 111 H, and phos 4.9 H, per chart review. Est. kcal needs: 2168-5996 kcal | 15-18 kcal/kg Est. Pro needs: 53-70 g Pro | 0.6-0.8 g Pro/kg PES STATEMENT: Given current PO intake, no nutrition diagnosis at this time (NO-1.1). INTERVENTION: Continue with current diet order of CHO 60g/m 3snack diet. Pt may benefit from switching to Renal diet, d/t current admission fo [facility]. Discussed and provided education and suggestions of renal diet management. Discussed common foods in pt's diet that are rich in phosphorus and potassium. Pt verbalized understanding of information provided. Will follow-up prior to discharge to see if pt has any questions. Will continue to follow and reassess as pt needs, intake, and status change. Morelia DANIELS, MS RD LD [phone] cell
[2020-11-27] MEDS ORDERED: PATIENT MAY USE OWN MED,SINGLE MED PO SCH (14:45)
[2020-11-27] MEDS ORDERED: LORazepam 0.5 MG (ATIVAN) TABLET PO PRN (14:45)
--- NOTE | 2020-11-27 15:21 | Occupational Therapy Eval ---
OT Evaluation-General/PLF Medical Diagnosis Admission Date Nov 26, 2020 at 12:40 Medical Diagnosis: syncope Onset Date: Nov 26, 2020 Therapy Diagnosis Therapy Diagnosis: weakness Height/Weight Height (Feet): 5 Height (Inches): 5.00 Weight (Pounds): 151 Weight (Ounces): 1.0 Precautions Precautions/Isolations: Seizure, Standard Precautions Referral Physician: Jasmin Referral Reason: Evaluation/Treatment Medical History Pertinent Medical History: DM, HTN, Renal Insufficiency, Rheumatoid Arthritis, Smoking Additional Medical History meth & THC use, smoker, DVT, neuropathy, hysterectomy, renal failure, GERD, liver disease, hepatitis, RA, arthritis, DM, anxiety/depression, personality disorder. Current History ED due to syncope Social History Current Living Status: mother Entry Into Home: Stairs With Railing Steps Into Home: 6 ADL-Prior Level of Function SCALE: Activities may be completed with or without assistive devices. 7-Obxmabqijs-ckxzlgt completes the activity by him/herself with no assistance from a helper. 5-Set-up or Clean-up Assistance-helper sets up or cleans up; patient completes activity. [place] assists only prior to or following the activity. 4-Supervision or Touching Assistance-helper provides verbal cues and/or touching/steadying and/or contact guard assistance as patient completes activity. Assistance may be provided throughout the activity or intermittently. 3-Partial/Moderate Assistance-helper does LESS THAN HALF the effort. [place] lifts, holds or supports trunk or limbs, but provides less than half the effort. 2-Substantial/Maximal Assistance-helper does MORE THAN HALF the effort. [place] lifts or holds trunk or limbs and provides more than half the effort. 1-Lvrjfniyk-ovcjgb does ALL the effort. Patient does none of the effort to complete the activity. Or, the assistance of 2 or more helpers is required for the patient to complete the activity. If activity was not attempted, code reason: 7-Patient Refused. 9-Not Applicable-not attempted and the patient did not perform the activity before the current illness, exacerbation or injury. 10-Not Attempted due to Environmental Limitations-(lack of equipment, weather restraints, etc.). 88-Not Attempted due to Medical Conditions or Safety Concerns. 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 Pt indicates she is independent with bathing and dressing at OF, and she has SKIL assistance throughout the week for cooking and cleaning. Pt currently does not have a SKIL worker, but is in the process of finding another worker. She was independent with functional mobility using a walker primarily, but did sometimes use a cane. Self Care: Needed Some Help Functional Cognition: Independent DME/Equipment: Tub/Shower OT Current Status Subjective Pt seated in bed, agreeable to OT evaluation and tx. Mental Status/Objective Patient Orientation: Person, Place, Time, Situation Attachments: IV, Telemetry Current Glasses/Contacts: Yes Hearing Aids: No Dentures/Partials: No Hand Dominance: Right Upper Extremity ROM WFL, BUE shoulder flexion to approx 150 degrees Upper Extremity Coordination WFL Upper Extremity Sensation Pt reports some numbness bilateral forearms along radial aspect. Upper Extremity Strength grossly 4/5 ADL-Treatment Eating (QC): 6 (Pt indicates she is independent with eating. Able to open containers, cut food and bring food to mouth.) On/Off Footwear (QC): 4 (supervision, pt able to don/doff gripper socks.) Other Treatments Pt seated in bed, long sitting with legs in front of her. Pt agreeable to OT evaluation and tx. OT educated pt on purpose and benefit of OT, she verbalized understanding, then she provided information about PLOF and home set up. Pt also participated in UE screen. Pt indicates she is independent with feeding. She was able to doff/don socks sitting EOB with supervision. OT provided pt with washcloth, educating her on completing principal web developer squeezes and wringing of cloth to increase hand strength, pt demo'd understanding. OT educated pt on OT POC while she is in the hospital with focus on increasing independence with ADLS and functional mobility as well as increasing BUE strength and functional endurance, she verbalized understanding. OT educated pt on benefits of bath bench vs chair, pt indicates she would feel safer getting a bath bench. OT also educated pt on safety performing skin checks, especially on the bottom of her feet due to neuropathy, she verbalized understanding. Post tx, pt seated EOB, call light in reach and all needs met. Education OT Patient Education: Correct positioning, Modified ADL techniques, Progress toward Goal/Update tx plan, Purpose of tx/functional activities, Rehab process Teaching Recipient: Patient Teaching Methods: Discussion Response to Teaching: Verbalize Understanding OT Drum Tester Goals Drum Tester Goals Time Frame: Dec 08, 2020 Eating (QC): 6 Oral Hygiene (QC): 6 Toileting Hygiene (QC): 6 Shower/Bathe Self (QC): 6 Upper Body Dressing (QC): 6 Lower Body Dressing (QC): 6 On/Off Footwear (QC): 6 1=Demonstrate adherence to instructed precautions during ADL tasks. 2=Patient will verbalize/demonstrate understanding of assistive devices/modifications for ADL. 3=Patient will improve strength/tolerance for activity to enable patient to perform ADL's. OT Education/Plan Problem List/Assessment Assessment: Decreased Activ Tolerance, Decreased UE Strength, Impaired I ADL's, Impaired Self-Care Skills Discharge Recommendations Plan/Recommendations: Continue POC Treatment Plan/Plan of Care Patient would benefit from OT for education, treatment and training to promote independence in ADL's, mobility, safety and/or upper extremity function for ADL's. Plan of Care: ADL Retraining, Functional Mobility, UE Funct Exercise/Act Treatment Duration: Dec 08, 2020 Frequency: 5 times per week Estimated Hrs Per Day: .25 hour per day Rehab Potential: Fair Time/GCodes Start Time: 14:30 Stop Time: 14:45 Total Time Billed (hr/min): 15 Billed Treatment Time 1BAILEY ADDISON OT Nov 27, 2020 15:20
[2020-11-27 16:00] VITALS: BP 115/70
[2020-11-27 19:10] VITALS: BP 137/82
[2020-11-27] MEDS: MONTELUKAST 10 MG (SINGULAIR) TAB PO SCH (20:11)
[2020-11-27] MEDS: ENOXAPARIN 30 MG/0.3 ML (LOVENOX) SYR SC SCH (20:11)
[2020-11-27] MEDS: MELATONIN 10 MG TABLET PO SCH (20:12)
[2020-11-28 00:36] VITALS: BP 139/81
[2020-11-28 03:45] VITALS: BP 145/84
[2020-11-28] MEDS: METOCLOPRAMIDE 10 MG (REGLAN) TAB PO SCH (06:05)
[2020-11-28] MEDS: inSUlin ASPART (NovoLOG) 1 UNIT/0.01 ML (CHARGE PER UNIT) SC SCH ×2 (06:05→09:24)
--- NOTE | 2020-11-28 06:31 | Progress Note - Hospitalist ---
KELLISHEBA MED STUDENT 11/28/20 0631: Subjective HPI/CC On Admission Date Seen by Provider: Nov 28, 2020 Time Seen by Provider: 06:10 Erin is a 55yo female presenting with syncope. She states that on Friday, she experienced dizziness/fainting while in her car. Yesterday she experienced another episode of dizziness/fainting at home after taking 20units of insulin for 543 blood sugar. She recently started a regimen of 5oz water hourly to help with kidney function and has had high urine output for the past few weeks. She has a history of poor blood sugar control and states that she has experienced similar episodes in the past. She complains of a headache 06/26 located on the posterior neck up to the back of the head, that started 2 days ago. Denies chest pain, N/V, abd pain. States that she feels short of breath and would like her Isosorb. Subjective/Events-last exam Pt seen and examined. She was awake, sitting up in bed, NAD. She says that she's feeling better today with no more episodes of fainting/dizziness overnight. Denies chest pain, abd pain, N/V, SOB. She is asking about having her labs drawn to see if her renal function was improving. Review of Systems General: No Chills HEENT: No Head Aches Pulmonary: No Dyspnea Cardiovascular: No: Chest Pain, Lt Headedness Gastrointestinal: No: Nausea, Vomiting, Abdominal Pain Genitourinary: No Dysuria Neurological: Numbness Objective Exam Vital Signs Vital Signs Date Time Temp Pulse Resp B/P (MAP) Pulse Ox O2 Delivery O2 Flow Rate FiO2 11/28/20 08:00 36.1 77 20 123/78 (93) 96 Room Air 11/28/20 08:00 0.00 Capillary Refill : Less Than 3 SecondsLess Than 3 Seconds General Appearance: No Apparent Distress, Chronically ill, Obese HEENT: PERRL/EOMI, Normal ENT Inspection Neck: Full Range of Motion, Normal Inspection, Non Tender, Supple Respiratory: Chest Non Tender, Lungs Clear, Normal Breath Sounds, No Accessory Muscle Use, No Respiratory Distress Cardiovascular: Regular Rate, Rhythm, No Edema, No Gallop, No JVD, No Murmur, Normal Peripheral Pulses Gastrointestinal: Normal Bowel Sounds, Non Tender, Soft Rectal: Deferred Back: Normal Inspection, No Vertebral Tenderness Extremity: Normal Capillary Refill, Normal Inspection, Normal Range of Motion, Non Tender, No Pedal Edema Neurologic/Psychiatric: Alert, Oriented x3, Normal Mood/Affect, Sensory Deficit (numbness/tingling to BUE/BLE) Skin: Normal Color, Warm/Dry Results/Procedures Lab Patient resulted labs reviewed. Assessment/Plan Assessment and Plan Assess & Plan/Chief Complaint Acute on chronic renal failure Cr 3.23 yesterday, pending today Continue IV fluids Pulmonary HTN 11/27/20 Echo showed normal EF with mild-moderate MV and AV stenosis, PA pressure 60-65 Leukocytosis WBC 11.2 yesterday IDDM Poorly controlled Levemir adjusted to 15units yesterday with improvement Continue to monitor DVT prophylaxis Continue Lovenox, SCD's No further complaints of dizziness/fainting overnight Continue to monitor labs/VS, IV fluids, sliding scale insulin Clinical Quality Measures DVT/VTE Risk/Contraindication: Risk Factor Score Per Nursin RFS Level Per Nursing on Admit: 4+=Very High TRUDI SERRANO MD 11/29/20 1114: SHEBA PEREIRA MED STUDENT Nov 28, 2020 06:31 TRUDI SERRANO MD Nov 29, 2020 11:14
[2020-11-28 08:00] VITALS: BP 123/78
[2020-11-28] MEDS: ASPIRIN 81 MG CHEW (CHILDREN'S ASA) PO SCH (08:12)
[2020-11-28] MEDS: GABAPENTIN 400 MG (NEURONTIN) CAP PO SCH (08:12)
[2020-11-28] MEDS: PANTOPRAZOLE 40 MG (PROTONIX) TAB PO SCH (08:12)
[2020-11-28] MEDS: meTOprolol TARTRATE 50 MG (LOPRESSOR) TAB PO SCH (08:12)
[2020-11-28] MEDS: SENNOSIDES 8.6 MG (SENOKOT) TAB PO SCH (08:13)
[2020-11-28] MEDS: DOCUSATE SODIUM 100 MG (COLACE) CAP PO SCH (08:13)
[2020-11-28] MEDS: FLUTICASONE NASAL SPRAY (FLONASE) 16 GM BTL NS SCH (08:14)
--- NOTE | 2020-11-28 08:23 | Cardiology Progress Note ---
Subjective Date Seen by Provider: Nov 28, 2020 Time Seen by Provider: 08:00 Subjective/Events-last exam Patient is sitting in chair, denies any dizziness or lightheadedness. Review of Systems General: No Chills, No Night Sweats, No Fatigue, No Malaise, No Appetite, No Other HEENT: No Head Aches, No Visual Changes, No Eye Pain, No Ear Pain, No Dysphasia, No Sinus Congestion, No Post Nasal Drip, No Sore Throat, No Other Pulmonary: No Dyspnea, No Cough, No Pleuritic Chest Pain, No Other Cardiovascular: No: Chest Pain, Palpitations, Orthopnea, Paroxysmal Noc. Dyspnea, Edema, Lt Headedness, Other Objective-Cardiology Exam Last Set of Vital Signs Vital Signs 11/26/20 11/28/20 16:40 08:00 Temp 36.1 Pulse 77 Resp 20 B/P (MAP) 123/78 (93) Pulse Ox 96 O2 Delivery Room Air O2 Flow Rate 0.00 0.00 Capillary Refill : Less Than 3 SecondsLess Than 3 Seconds I&O Intake and Output 11/28/20 00:00 Intake Total 3130 ml Balance 3130 ml Intake Oral 2130 ml IV Total 1000 ml # Voids 10 General: Alert, Oriented X3, Cooperative HEENT: Atraumatic, PERRLA Neck: Supple, No JVD, No Thyromegaly Lungs: Clear to Auscultation, Normal Air Movement Heart: Regular Rate, Normal S1, Normal S2, No Murmurs Abdomen: Normal Bowel Sounds, Soft, No Tenderness, No Hepatosplenomegaly, No Masses Extremities: No Clubbing Skin: No Rashes, No Significant Lesion Neuro: Normal Speech, Strength at 5/5 X4 Ext Psych/Mental Status: Mental Status NL, Mood NL Results Lab Laboratory Tests Test 11/27/20 14:51 11/27/20 20:03 11/28/20 05:55 Range/Units Glucometer 229 H 398 H 234 H 70-110 MG/DL A/P-Cardiology Admission Diagnosis Syncope CHF HTN HLP Assessment/Plan Syncope, probably hypotensive episode secondary to hypovolemia and hypotension. Patient was educated in length about increasing fluid intake CHF, follows with Dr. Lyles. 2d Echo done yesterday with EF 55-65%, mod AR. Maintained on beta silvio. Unable to tolerate JENNIFER-I/ARB secondary to CKD HTN, controlled., continue to monitor. HLP, continue to monitor as outpatient. Acute on CKD, follows with nephrology, instructed to increase fluid intake DM, poorly controlled. Tobaccoism, educated on the importance of smoking cessation. Patient was seen and evaluated with Gracy, examination performed, management plan was discussed, agree with the current scribed note, I made few changes to the note using Italic font Patient was seen at bedside, feeling better. No new complaint. Echo showed normal LV function, mild diastolic dysfunction with left atrial dilatation, moderate aortic regurgitation, she has been maintained on beta blockers. 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
--- NOTE | 2020-11-28 08:42 | Physical Therapy Daily Note ---
PT Daily Note-Current Subjective Patient in recliner pre tx, agrees to PT, had 5/10 low back pain but got pain meds and she says it is better. Appearance Patient in recliner post tx with nurse call, phone, tray, all needs met. Mental Status Patient Orientation: Person, Place, Situation Transfers SCALE: Activities may be completed with or without assistive devices. 3-Nwgiioovxf-lkxemmg completes the activity by him/herself with no assistance from a helper. 5-Set-up or Clean-up Assistance-helper sets up or cleans up; patient completes activity. [place] assists only prior to or following the activity. 4-Supervision or Touching Assistance-helper provides verbal cues and/or touching/steadying and/or contact guard assistance as patient completes activity. Assistance may be provided throughout the activity or intermittently. 3-Partial/Moderate Assistance-helper does LESS THAN HALF the effort. [place] lifts, holds or supports trunk or limbs, but provides less than half the effort. 2-Substantial/Maximal Assistance-helper does MORE THAN HALF the effort. [place] lifts or holds trunk or limbs and provides more than half the effort. 3-Qxtqixtbc-zqjxcv does ALL the effort. Patient does none of the effort to complete the activity. Or, the assistance of 2 or more helpers is required for the patient to complete the activity. If activity was not attempted, code reason: 7-Patient Refused. 9-Not Applicable-not attempted and the patient did not perform the activity before the current illness, exacerbation or injury. 10-Not Attempted due to Environmental Limitations-(lack of equipment, weather restraints, etc.). 88-Not Attempted due to Medical Conditions or Safety Concerns. Sit to Stand (QC): 4 Chair/Vfb-it-Fiskf Xfer(QC): 4 SBA Gait Training Distance: 250' Walk 10 feet (QC): 4 Walk 50 ft with 2 Turns(QC): 4 Walk 150 ft (QC): 4 Gait Persons Needed: 1 Gait Assistive Device: FWW SBA, no unsteadiness, no rest break Exercises Seated Therapy Exercises: Ankle pumps, Long arc quads, Hip flexion Seated Reps: 20 Treatments transfers, ambulation, LE exercise Assessment Current Status: Fair Progress improved endurance PT Long-Term Goals Long-Term Goals PT Destaticizer Feeder Goals Time Frame: Dec 04, 2020 Roll Left & Right (QC): 6 Sit to Lying (QC): 6 Lying-Sitting on Side/Bed(QC): 6 Sit to Stand (QC): 6 Chair/Rac-iv-Wwwkp Xfer(QC): 6 Toilet Transfer (QC): 6 Walk 10 feet (QC): 5 Walk 50ft with 2 Turns (QC): 5 Walk 150 ft (QC): 5 PT Plan Problem List Problem List: Activity Tolerance, Functional Strength, Safety, Balance, Gait, Transfer Treatment/Plan Treatment Plan: Continue Plan of Care Treatment Plan: Education, Functional Activity Timo, Functional Strength, Gait, Safety, Therapeutic Exercise, Transfers Treatment Duration: Dec 04, 2020 Frequency: 6 times per week Estimated Hrs Per Day: .25 hour per day Patient and/or Family Agrees t: Yes Safety Risks/Education Patient Education: Gait Training, Transfer Techniques, Correct Positioning, Safety Issues Teaching Recipient: Patient Teaching Methods: Demonstration, Discussion Response to Teaching: Reinforcement Needed Time/GCodes Time In: 0815 Time Out: 824 Total Billed Treatment Time: 10 Total Billed Treatment 1 visit GT 10' EDUARDA LOPEZ PT Nov 28, 2020 08:42
--- NOTE | 2020-11-28 09:43 | Occupational Ther Daily Note ---
OT Current Status-Daily Note Subjective Pt drowsy in bed. Pt states she just woke up from nap. Pt agrees to tx, Ox4. Pt states moderate pain in mid-back, nursing notified. No c/o dizziness throughout. Mental Status/Objective Patient Orientation: Person, Place, Situation Attachments: Telemetry ADL-Treatment Therapy Code Descriptions/Definitions Functional [place] Measure: 0=Not Assessed/NA 4=Minimal Assistance 1=Total Assistance 5=Supervision or Setup 2=Maximal Assistance 6=Modified [place] 3=Moderate Assistance 7=Complete IndependenceSCALE: Activities may be completed with or without assistive devices. 4-Thmxcjyhdv-gyrggxq completes the activity by him/herself with no assistance from a helper. 5-Set-up or Clean-up Assistance-helper sets up or cleans up; patient completes activity. [place] assists only prior to or following the activity. 4-Supervision or Touching Assistance-helper provides verbal cues and/or touching/steadying and/or contact guard assistance as patient completes activity. Assistance may be provided throughout the activity or intermittently. 3-Partial/Moderate Assistance-helper does LESS THAN HALF the effort. [place] lifts, holds or supports trunk or limbs, but provides less than half the effort. 2-Substantial/Maximal Assistance-helper does MORE THAN HALF the effort. [place] lifts or holds trunk or limbs and provides more than half the effort. 1-Zbwbcihhr-uaeecd does ALL the effort. Patient does none of the effort to complete the activity. Or, the assistance of 2 or more helpers is required for the patient to complete the activity. If activity was not attempted, code reason: 7-Patient Refused. 9-Not Applicable-not attempted and the patient did not perform the activity before the current illness, exacerbation or injury. 10-Not Attempted due to Environmental Limitations-(lack of equipment, weather restraints, etc.). 88-Not Attempted due to Medical Conditions or Safety Concerns. Eating (QC): 6 Bathing Location: L Arm, R Arm, L Upper Leg, R Upper Leg, L Lower Leg (including foot), R Lower Leg (including foot), Chest, Abdomen, Buttocks, Perineal Area Shower/Bathe Self (QC): 6 (IND sponge bath. ) Upper Body Dressing (QC): 5 (s/u) Lower Body Dressing (QC): 4 (SUP for underwear doff/ donning in stance. ) On/Off Footwear: 6 (IND EOB.) Toileting Hygiene (QC): 6 (IND) Toilet Transfer (QC): 4 (SBA- able to complete safely. ) Other Treatment Pt bed mob SBA. Ambulates to toilet with SBA. Completes toileting with IND. Returns to EOB, completes sponge bath as outlined. Based on pt's level of function/ safety during tasks, OT to d/c this date as pt is at OF. Pt agrees, all needs met, call light in reach, pt is educated to continue to press call light for bathroom needs, returns to bed. Education OT Patient Education: Correct positioning, Progress toward Goal/Update tx plan, Purpose of tx/functional activities Teaching Recipient: Patient Teaching Methods: Demonstration, Discussion Response to Teaching: Verbalize Understanding, Return Demonstration OT Gag Writer Goals Prison Goals Time Frame: Dec 08, 2020 Eating (QC): 6 Oral Hygiene (QC): 6 Toileting Hygiene (QC): 6 Shower/Bathe Self (QC): 6 Upper Body Dressing (QC): 6 Lower Body Dressing (QC): 6 On/Off Footwear (QC): 6 1=Demonstrate adherence to instructed precautions during ADL tasks. 2=Patient will verbalize/demonstrate understanding of assistive devices/mo difications for ADL. 3=Patient will improve strength/tolerance for activity to enable patient to perform ADL's. OT Education/Plan Problem List/Assessment Assessment: Decreased Activ Tolerance, Impaired I ADL's Discharge Recommendations Plan/Recommendations: Discharge/Goals Met Therapy Discharge Recommendati: Home & Family Equpiment Recommendations-D/C: Extended Bath Bench Treatment Plan/Plan of Care Treatment,Training & Education: Yes Patient would benefit from OT for education, treatment and training to promote independence in ADL's, mobility, safety and/or upper extremity function for ADL's. Plan of Care: ADL Retraining, Functional Mobility, UE Funct Exercise/Act Treatment Duration: Dec 08, 2020 Frequency: 5 times per week Estimated Hrs Per Day: .25 hour per day Rehab Potential: Fair Time/GCodes Start Time: 09:16 Stop Time: 09:36 Total Time Billed (hr/min): 20 Billed Treatment Time 1, ADL (20) D/c. KAYA ORANTES OTR Nov 28, 2020 09:43
[2020-11-28] MEDS ORDERED: METOCLOPRAMIDE 5 MG (REGLAN) TAB PO SCH (11:00)
[2020-11-28 12:00] VITALS: BP 143/76
[2020-11-28] MEDS ORDERED: INSU100V5 SQ (12:29)
[2020-11-28 12:32] LABS: POTASSIUM 4.5 MMOL/L (3.6-5.0)
[2020-11-28 12:38] LABS: CREATININE SERUM 2.55 MG/DL (0.60-1.30)
--- NOTE | 2020-11-28 12:40 | Discharge Inst-Simple/Standard ---
Discharge Inst-Standard Patient Instructions/Follow Up Plan of Care/Instructions/FU: Please continue to take your medications as written. Please follow up with your primary care doctor and your kidney doctor to follow up this hospital stay. I decreased your Levemir down to 15 units here because your blood sugars were low but if they continue to rise you will need to talk to your doctor about increasing back up. Activity as Tolerated: Yes Discharge Diet: ADA Diet Return to The Hospital For: Chest pain, shortness of breath, confusion, weakness, syncope, fever, if you feel you are getting worse. TRUDI SERRANO MD Nov 28, 2020 12:35
--- NOTE | 2020-11-28 14:54 | NUR ---
CM/SS finalized discharge. Plan: The patient discharged home self care. No needs. Patient did not want home health at this time. No further needs.
--- NOTE | 2020-11-28 16:48 | Discharge Summary ---
SHEBA PEREIRA MED STUDENT 11/28/20 1648: Diagnosis/Chief Complaint Date of Admission Nov 26, 2020 at 12:40 Date of Discharge Nov 28, 2020 at 13:45 Discharge Date: Nov 28, 2020 Discharge Time: 12:49 Admission Diagnosis Acute on chronic renal failure, syncope Primary Care No,Local Physician Discharge Diagnosis Chronic renal failure IDDM Pulmonary HTN AV and MV stenosis Discharge Summary Procedures/Consulations Cardiology consulted Discharge Physical Exam Allergies: Coded Allergies: morphine (Verified Allergy, Mild, Vomiting, 05/20/20) orange juice (Verified Allergy, Mild, Nausea, 05/24/20) Sulfa (Sulfonamide Antibiotics) (Unverified Allergy, Unknown, 05/11/15) codeine (Verified Allergy, Unknown, TAKES ULTRAM AT HOME, 11/18/08) ketorolac (Verified Allergy, Unknown, 10/05/08) tramadol (Verified Allergy, Unknown, 11/02/11) Vitals & I&Os Vital Signs Date Time Temp Pulse Resp B/P (MAP) Pulse Ox O2 Delivery O2 Flow Rate FiO2 11/28/20 12:00 36.5 61 20 143/76 (98) 98 Room Air 11/28/20 08:00 0.00 General Appearance: No Apparent Distress, Chronically ill, Obese HEENT: PERRL/EOMI, Normal ENT Inspection, Pharynx Normal, Moist Mucous Membranes Respiratory: Chest Non Tender, Lungs Clear, Normal Breath Sounds, No Accessory Muscle Use, No Respiratory Distress Cardiovascular: Regular Rate, Rhythm, No Edema, No Gallop, No JVD, No Murmur, Normal Peripheral Pulses Gastrointestinal: Normal Bowel Sounds, Non Tender, Soft Extremity: Normal Capillary Refill, Normal Inspection, Normal Range of Motion, Non Tender, No Pedal Edema Skin: Normal Color, Warm/Dry Neurologic/Psychiatric: Alert, Oriented x3, Normal Mood/Affect, Sensory Deficit (numbness/tingling to extremities x4) Hospital Course Erin was admitted on 11/26/20 due to complaint of syncope x2 episodes over the prior week. On w/u she was found to have acute on chronic renal failure and was started on IVF. Her blood sugars were poorly controlled, with glucose ranging from 60-583 initially. Levemir was titrated down to 15units from 20units, which stabilized glucose to 177-234. Cardiology was consulted for medical history of CHF, HTN, HLD. TTE was performed and showed mild-moderate MV and AV stenosis, and PA pressure 60-65. She experienced dizziness/lightheadedness on the first night, but was asymptomatic on the night prior to discharge. Labs (last 24 hrs) Laboratory Tests 11/27/20 20:03: Glucometer 398H 11/28/20 05:55: Glucometer 234H 11/28/20 09:23: Glucometer 177H 11/28/20 12:17: Sodium Level 133L, Potassium Level 4.5, Chloride Level 100, Carbon Dioxide Level 23, Anion Gap 10, Blood Urea Nitrogen 62H, Creatinine 2.55#H, Estimat Glomerular Filtration Rate 19, BUN/Creatinine Ratio 24, Glucose Level 265H, Calcium Level 8.0L Patient resulted labs reviewed. Pending Labs Laboratory Tests 11/28/20 09:23: Glucometer 177 11/28/20 12:17: Sodium Level 133, Potassium Level 4.5, Chloride Level 100, Carbon Dioxide Level 23, Anion Gap 10, Blood Urea Nitrogen 62, Creatinine 2.55, Estimat Glomerular Filtration Rate 19, BUN/Creatinine Ratio 24, Glucose Level 265, Calcium Level 8.0 Radiology Reviewed CXR, CT Head/neck Imaging: Reviewed Imaging Films, Reviewed Imaging Report Discharge Home Medications: Active Scripts Active Levemir (Insulin Determir) 1,000 Units/10 Ml Soln 15 Units SQ HS Reported Oxycodone HCl 5 Mg Tablet 5 Mg PO DAILY PRN Vitamin D2 (Ergocalciferol (Vitamin D2)) 1,250 Mcg Capsule 1,250 Mcg PO THUR [Iron Slow Release] 45 Tab 45 Mg PO DAILY Certavite Sr-Antioxidant Tab (Multivit-Min/FA/Lycopene/Lut) 1 Each Tablet 1 Ea PO DAILY Furosemide 80 Mg Tablet 80 Mg PO BID Magnesium Oxide 400 Mg Tablet 400 Mg PO BID Isosorbide Mononitrate ER (Isosorbide Mononitrate) 30 Mg Tab.er.24h 30 Mg PO DAILY Ativan (Lorazepam) 1 Mg Tablet 1 Mg PO TID PRN Metolazone 5 Mg Tablet 5 Mg PO MON,WE,FR Torsemide 100 Mg Tablet 100 Mg PO 0800,1500 Metoprolol Tartrate 50 Mg Tablet 75 Mg PO BID TAKES 1 & (50MG) TABS Aspirin 81 Mg Tab.chew 81 Mg PO DAILY Neurontin (Gabapentin) 300 Mg Capsule 600 Mg PO Q8H TAKES 2 (300MG) TABS Melatonin 10 Mg Tablet 10 Mg PO HS Diclofenac Sodium 100 Gm Gel..gram. 1 Applic TOP QID PRN APPLY TO LEGS Flonase Allergy Relief (Fluticasone Propionate) 9.9 Ml Bonduel.susp 2 Bonduel NSEACH DAILY Metoclopramide HCl 10 Mg Tablet 10 Mg PO QIDACHS Narcan (Naloxone HCl) 4 Mg Bonduel 1 Bonduel NS UD PRN ADMINSTER 1 SPRAY IN 1 NOSTRIL 1 TIME- MAY REPEAT IN ALTERNATING NOSTRIL EVERY 2-3 MINUTES UNTIL RESPONSIVE OR EMS ARRIVES Omeprazole 20 Mg Capsule.dr 20 Mg PO DAILY Humalog Kwikpen (Insulin Lispro) 100 Unit/1 Ml Insuln.pen 5-15 Units SQ AC Proair Hfa (Albuterol Sulfate) 1 Puff Puff 2 Puff IH TID PRN Montelukast Sodium 10 Mg Tablet 10 Mg PO HS Instructions to patient/family Please see electronic discharge instructions given to patient. Clinical Quality Measures DVT/VTE Risk/Contraindication: Risk Factor Score Per Nursin RFS Level Per Nursing on Admit: 4+=Very High TRUDI CASTELLANOS MD 11/28/202044: Discharge Summary Discharge Physical Exam Allergies: Coded Allergies: morphine (Verified Allergy, Mild, Vomiting, 05/20/20) orange juice (Verified Allergy, Mild, Nausea, 05/24/20) Sulfa (Sulfonamide Antibiotics) (Unverified Allergy, Unknown, 05/11/15) codeine (Verified Allergy, Unknown, TAKES ULTRAM AT HOME, 11/18/08) ketorolac (Verified Allergy, Unknown, 10/05/08) tramadol (Verified Allergy, Unknown, 11/02/11) Discussion & Recommendations Discharge Planning: >30 minutes discharge planning Supervisory-Addendum Brief Verification & Attestation Participated in pt care: history, MDM, physical Personally performed: exam, history, MDM, supervision of care Care discussed with: Medical Student Procedures: n/a Results interpretation: Verified all documentation Verification and Attestation of Medical Student E/M Service A medical student performed and documented this service in my presence. I reviewed and verified all information documented by the medical student and made modifications to such information, when appropriate. I personally performed the physical exam and medical decision making. Trudi Castellanos, Nov 28, 2020,20:46 SHEBA PEREIRA MED STUDENT Nov 28, 2020 16:48 TRUDI CASTELLANOS MD Nov 28, 2020 20:45
== END 2020-11-28 13:45 | disposition home or self-care (01) ==
LOC: EDUNIT# 10:15 → ER 10:15 → UNDOADMIN 12:40 → ICU 12:40 → 4TH 14:58 → UNDODISIN 11-28 13:45
PROVIDERS: ADMIT Internal Medicine; ATTEND Internal Medicine
DX: N17.9 Acute kidney failure, unspecified (principal); I13.0 Hypertensive heart and chronic kidney disease with heart failure and stage 1 through stage 4 chronic kidney disease, or unspecified chronic kidney disease; E11.22 Type 2 diabetes mellitus with diabetic chronic kidney disease; E11.65 Type 2 diabetes mellitus with hyperglycemia; N18.9 Chronic kidney disease, unspecified; I50.9 Heart failure, unspecified; R56.9 Unspecified convulsions; B19.20 Unspecified viral hepatitis C without hepatic coma; E11.40 Type 2 diabetes mellitus with diabetic neuropathy, unspecified; K21.9 Gastro-esophageal reflux disease without esophagitis; E78.00 Pure hypercholesterolemia, unspecified; F17.210 Nicotine dependence, cigarettes, uncomplicated; J45.909 Unspecified asthma, uncomplicated; M19.91 Primary osteoarthritis, unspecified site; M06.9 Rheumatoid arthritis, unspecified; F60.9 Personality disorder, unspecified; I08.0 Rheumatic disorders of both mitral and aortic valves; E86.1 Hypovolemia; R55 Syncope and collapse; I95.89 Other hypotension; I27.20 Pulmonary hypertension, unspecified; Z79.4 Long term (current) use of insulin; Z86.718 Personal history of other venous thrombosis and embolism; Z79.82 Long term (current) use of aspirin; Z79.891 Long term (current) use of opiate analgesic; Z88.2 Allergy status to sulfonamides; Z88.6 Allergy status to analgesic agent
CPT/HCPCS: 36415; 70450; 71045; 72125; 80048; 80053; 81000; 82010; 82962; 83735; 84100; 84443; 84484; 85025; 85610; 85730; 87088; 93005; 93306; G0378

== ENCOUNTER → 2021-01-19 | Outpatient (CLI) | payer MEDICAID ==
[~2021-01-19] MED LIST changes: +CHOL200025 PO; +ERGO50006 PO; +FURO80TA3 PO; +IRON SLOW RELEASE PO; +ISOS30TA82 PO; -LISI-552 PO; +LISI20TA26 PO; +LORA-405; +MAGN400T8 PO; -METO10TA3 PO; +METO5TAB6 PO; +MONT10TA32 PO; -MONT10TA97 PO; +MULT-26 PO; +OXYC5TAB PO; +TORS100T4 PO
[2021-01-19 15:16] LABS: BASOPHILS % (AUTO) 0 % (0-10); EOSINOPHILS # (AUTO) 0.3 10^3/uL (0.0-0.3); EOSINOPHILS % (AUTO) 3 % (0-10); HEMATOCRIT 38 % (35-52); HEMOGLOBIN 12.8 g/dL (11.5-16.0); LYMPHOCYTES # (AUTO) 2.2 10^3/uL (1.0-4.0); LYMPHOCYTES % (AUTO) 19 % (12-44); MEAN CORPUSCULAR HEMOGLOBIN 30 pg (25-34); MEAN CORPUSCULAR HGB CONC 34 g/dL (32-36); MEAN CORPUSCULAR VOLUME 90 fL (80-99); MEAN PLATELET VOLUME 9.8 fL (9.0-12.2); MONOCYTES # (AUTO) 0.7 10^3/uL (0.0-1.0); MONOCYTES % (AUTO) 6 % (0-12); NEUTROPHILS # (AUTO) 8.3 10^3/uL (1.8-7.8); NEUTROPHILS % (AUTO) 72 % (42-75); PLATELET COUNT 435 10^3/uL (130-400); WHITE BLOOD COUNT 11.5 10^3/uL (4.3-11.0)
[2021-01-19 15:25] LABS: ALBUMIN 3.8 GM/DL (3.2-4.5)
[2021-01-19 15:26] LABS: POTASSIUM 3.4 MMOL/L (3.6-5.0)
[2021-01-19 15:27] LABS: CALCIUM 8.4 MG/DL (8.5-10.1)
[2021-01-19 15:28] LABS: POTASSIUM 3.5 MMOL/L (3.6-5.0); TOTAL PROTEIN 8.3 GM/DL (6.4-8.2)
[2021-01-19 15:29] LABS: CALCIUM 8.5 MG/DL (8.5-10.1)
[2021-01-19 15:30] LABS: BILIRUBIN,TOTAL 0.3 MG/DL (0.1-1.0)
[2021-01-19 15:31] LABS: PHOSPHORUS 6.4 MG/DL (2.3-4.7)
[2021-01-19 15:32] LABS: CREATININE SERUM 3.86 MG/DL (0.60-1.30)
[2021-01-19 15:33] LABS: CREATININE SERUM 3.89 MG/DL (0.60-1.30)
== END ==
LOC: LAB 14:09
PROVIDERS: ATTEND Internal Medicine Nephrology
DX: B17.11 Acute hepatitis C with hepatic coma (principal); N04.9 Nephrotic syndrome with unspecified morphologic changes; N18.4 Chronic kidney disease, stage 4 (severe); E11.21 Type 2 diabetes mellitus with diabetic nephropathy; N05.8 Unspecified nephritic syndrome with other morphologic changes; D63.1 Anemia in chronic kidney disease; E55.9 Vitamin D deficiency, unspecified
CPT/HCPCS: 36415; 80048; 80053; 80069; 82043; 82570; 83036; 84100; 84156; 85025; 86703; 86707; 86709; 87522; 87902

== ENCOUNTER → 2021-01-24 | Outpatient (CLI) | payer MEDICAID ==
--- NOTE | 2021-01-24 08:29 | Diagnostic Imaging Report ---
EXAMINATION: US Abdomen limited. TECHNIQUE: Multiple real-time grayscale images were obtained over the right upper quadrant in various projections. HISTORY: Hepatitis C COMPARISON: None available. FINDINGS: The liver is normal in size. The liver is normal in echogenicity. No focal lesions are seen. The portal vein is patent with hepatopedal flow. Gallbladder is normal without wall thickening or pericholecystic fluid. Sonographic Garcia sign is negative. Common duct measures 5 mm. There is no biliary ductal dilation. The visualized portions of the pancreas are normal. The right kidney contains a simple cyst but is otherwise normal without hydronephrosis. No follow-up is needed for the cyst. IMPRESSION: 1. Unremarkable right upper quadrant ultrasound. Dictated by: Dictated on workstation # [id number]
== END ==
LOC: RAD 07:00
PROVIDERS: ATTEND Internal Medicine Infectious Disease
DX: B18.2 Chronic viral hepatitis C (principal)
CPT/HCPCS: 76705

== ENCOUNTER 2021-03-19 12:38 | Emergency (ER) | payer MEDICAID ==
[~2021-03-19] VITALS: Ht 165 cm; Wt 80.7 kg
--- NOTE | 2021-03-19 12:50 | ED General ---
General Chief Complaint: Fever-Adult/Adol Stated Complaint: WEAKNESS,NAUSEA Source of Information: Patient Exam Limitations: No Limitations History of Present Illness Date Seen by Provider: March 19, 2021 Time Seen by Provider: 12:40 Initial Comments This is a chronically ill 56-year-old female presents to the ER via POV with complaints of nausea, not feeling well, vomiting x3 days. States that she was placed to have dialysis today however she did not feel well enough to go. Additionally states that she has been feeling very weak and is unable to tolerate any p.o. intake. States that she has not had any fluid taken off during dialysis and she is negative at this time. She is concerned she is dehydrated. The patient reports that she had her mahurkar dialysis catheter replaced last week due to her prior clotting off. She was placed on Eliquis twice a day after procedure. She denies fevers, chills, shortness of breath, chest pain. Allergies and Home Medications Allergies Coded Allergies: morphine (Verified Allergy, Mild, Vomiting, 05/20/20) orange juice (Verified Allergy, Mild, Nausea, 05/24/20) Sulfa (Sulfonamide Antibiotics) (Unverified Allergy, Unknown, 05/11/15) codeine (Verified Allergy, Unknown, TAKES ULTRAM AT HOME, 11/18/08) ketorolac (Verified Allergy, Unknown, 10/05/08) tramadol (Verified Allergy, Unknown, 11/02/11) Home Medications Albuterol Sulfate 1 Puff Puff, 2 PUFF IH TID PRN for SHORTNESS OF BREATH, (Reported) Aspirin 81 Mg Tab.chew, 81 MG PO DAILY, (Reported) Diclofenac Sodium 100 Gm Gel..gram., 1 APPLIC TOP QID PRN for CRAMPS, (Reported) APPLY TO LEGS Ergocalciferol (Vitamin D2) 1,250 Mcg Capsule, 1,250 MCG PO THUR, (Reported) Fluticasone Propionate 9.9 Ml [place].susp, 2 SPRAY NSEACH DAILY, (Reported) Furosemide 80 Mg Tablet, 80 MG PO BID, (Reported) Gabapentin 300 Mg Capsule, 600 MG PO Q8H, (Reported) TAKES 2 (300MG) TABS Insulin Determir 1,000 Units/10 Ml Soln, 15 UNITS SQ HS Prescribed by: TRUDI SERRANO on 11/28/20 1229 Insulin Lispro 100 Unit/1 Ml Insuln.pen, 5-15 UNITS SQ AC, (Reported) Isosorbide Mononitrate 30 Mg Tab.er.24h, 30 MG PO DAILY, (Reported) Lorazepam 1 Mg Tablet, 1 MG PO TID PRN for ANXIETY, (Reported) Magnesium Oxide 400 Mg Tablet, 400 MG PO BID, (Reported) Melatonin 10 Mg Tablet, 10 MG PO HS, (Reported) Metoclopramide HCl 10 Mg Tablet, 10 MG PO QIDACHS, (Reported) Metolazone 5 Mg Tablet, 5 MG PO MON,WE,FR, (Reported) Metoprolol Tartrate 50 Mg Tablet, 75 MG PO BID, (Reported) TAKES 1 & (50MG) TABS Montelukast Sodium 10 Mg Tablet, 10 MG PO HS, (Reported) Multivit-Min/FA/Lycopene/Lut 1 Each Tablet, 1 EA PO DAILY, (Reported) Naloxone HCl 4 Mg [place], 1 SPRAY NS UD PRN for UNRESPONSIVE, (Reported) ADMINSTER 1 SPRAY IN 1 NOSTRIL 1 TIME- MAY REPEAT IN ALTERNATING NOSTRIL EVERY 2-3 MINUTES UNTIL RESPONSIVE OR EMS ARRIVES Omeprazole 20 Mg Capsule.dr, 20 MG PO DAILY, (Reported) Oxycodone HCl 5 Mg Tablet, 5 MG PO DAILY PRN for PAIN-SEVERE (8-10), (Reported) Torsemide 100 Mg Tablet, 100 MG PO 0800,1500, (Reported) [Iron Slow Release] 45 TAB, 45 MG PO DAILY, (Reported) Patient Home Medication List Home Medication List Reviewed: Yes Review of Systems Review of Systems Constitutional: see HPI EENTM: see HPI Respiratory: see HPI Cardiovascular: see HPI Gastrointestinal: see HPI Genitourinary: no symptoms reported Musculoskeletal: see HPI Skin: no symptoms reported Psychiatric/Neurological: No Symptoms Reported Hematologic/Lymphatic: See HPI Immunological/Allergic: no symptoms reported Past Wofgjjk-Woiwdw-Ipfhmd Hx Patient Social History Drug of Choice: METH, THC Type Used: Cigarettes 2nd Hand Smoke Exposure: No Recent Hopitalizations: No Immunizations Up To Date Tetanus Booster (TDap): Unknown Date of Pneumonia Vaccine: Aug 17, 2012 Date of Influenza Vaccine: Aug 17, 2012 Seasonal Allergies Seasonal Allergies: Yes Past Medical History Surgeries: Yes (URETERAL STENTS) Abdominal, Adenoidectomy, Ear Surgery, Hysterectomy, Renal, Tonsillectomy, Tubal Ligation Respiratory: Yes (INTUBATED 05/16/20 WITH DKA/RESP FAILURE) Asthma, Pneumonia, Chronic Bronchitis, COPD Currently Using CPAP: No Currently Using BIPAP: No Cardiac: Yes (CHF) Deep Vein Thrombosis, High Cholesterol, Hypertension Neurological: Yes Neuropathy Reproductive Disorders: Yes Female Reproductive Disorders: Menstrual Problems 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 History: Hysterectomy, Menopausal Genitourinary: Yes (NO DIALYSIS; URETERAL STENTS FOR KIDNEY STONES) Renal Failure Gastrointestinal: Yes Hepatitis Musculoskeletal: Yes (CHRONIC GENERALIZED PAIN) Arthritis, Rheumatoid Arthritis, Fractures Endocrine: Yes (NON-COMPLIANT; MULTIPLE EPISODES OF DKA) Diabetes, Insulin dep HEENT: Yes (S/P T&A) Tonsilitis, Glaucoma Loss of Vision: Denies Hearing Impairment: Denies Cancer: No Psychosocial: Yes (POLYSUBSTANCE ABUSE) Anxiety, Personality Disorder, Depression Integumentary: No Blood Disorders: No Adverse Reaction/Blood Tranf: No Family Medical History FH: thyroid cancer G8 SISTER FHx: macular degeneration 19 MOTHER Glaucoma G8 BROTHER Heart Disease, Cancer, Diabetes SOCIAL HISTORY: -ETOH--REGULAR USE--"COUPLE OF DRINKS" SEVERAL NIGHTS A WEEK -DRUGS--+ METH AND THC USE -SMOKES > 1 PPD PAST SURGICAL HISTORY: -TONSILLECTOMY AND ADENOIDECTOMY -BILATERAL TUBAL LIGATION -HYSTERECTOMY -EXPLORATORY LAPAROSCOPY -URETERAL STENTS FOR KIDNEY STONES/CYSTOSCOPIES -EAR SURGERY Physical Exam Vital Signs Vital Signs - First Documented 03/19/21 12:38 Temp 35.9 Pulse 127 Resp 20 B/P (MAP) 200/88 (125) Pulse Ox 89 O2 Delivery Room Air O2 Flow Rate 2.00 Capillary Refill : Height, Weight, BMI Height: 5'5.00" Weight: 151lbs. 1.0oz. [id number]; 29.16 BMI Method:Stated General Appearance: No Apparent Distress, Chronically ill Eyes: Bilateral Eye Normal Inspection, Bilateral Eye PERRL, Bilateral Eye EOMI HEENT: PERRL/EOMI, Normal ENT Inspection; No Moist Mucous Membranes Neck: Normal Inspection, Supple Respiratory: Lungs Clear, Normal Breath Sounds, No Accessory Muscle Use, No Respiratory Distress, Other (Mahukar right chest wall ) Cardiovascular: Regular Rate, Rhythm, No Edema, Normal Peripheral Pulses Gastrointestinal: Normal Bowel Sounds, Soft, Tenderness (diffuse) Back: Normal Inspection, No Vertebral Tenderness Extremity: Normal Capillary Refill, Normal Inspection; No No Pedal Edema Neurologic/Psychiatric: Alert, Oriented x3, No Motor/Sensory Deficits, Normal Mood/Affect Skin: Normal Color, Warm/Dry Focused Exam Lactate Level 03/19/21 00:00: Lactic Acid Level 4.42*H 03/19/21 13:07: Lactic Acid Level 4.41*H Lactic Acid Level Laboratory Tests Test 03/19/21 00:00 03/19/21 13:07 Lactic Acid Level 4.42 MMOL/L (0.50-2.00) *H 4.41 MMOL/L (0.50-2.00) *H Procedures/Interventions Date of ETT Placement: May 20, 2020 Time of ETT Placement: 0700 Progress/Results/Core Measures Suspected Sepsis SIRS Temperature: Pulse: Respiratory Rate: Laboratory Tests 03/19/21 13:07: White Blood Count 22.7H Blood Pressure / Mean: 03/19/21 00:00: Lactic Acid Level 4.42*H 03/19/21 13:07: Lactic Acid Level 4.41*H Laboratory Tests 03/19/21 13:07: Creatinine 5.34H, INR Comment 1.0, Platelet Count 278, Total Bilirubin 1.0 Results/Orders Lab Results Laboratory Tests Test 03/19/21 00:00 03/19/21 12:45 03/19/21 13:07 03/19/21 15:40 Range/Units Lactic Acid Level 4.42 *H 4.41 *H 0.50-2.00 MMOL/L Coronavirus 2019 (ISMAEL) Not Detected Not Detecte White Blood Count 22.7 H 4.3-11.0 10^3/uL Red Blood Count 4.43 3.80-5.11 10^6/uL Hemoglobin 14.0 11.5-16.0 g/dL Hematocrit 43 35-52 % Mean Corpuscular Volume 97 80-99 fL Mean Corpuscular Hemoglobin 32 25-34 pg Mean Corpuscular Hemoglobin Concent 33 32-36 g/dL Red Cell Distribution Width 13.9 10.0-14.5 % Platelet Count 278 130-400 10^3/uL Mean Platelet Volume 10.7 9.0-12.2 fL Immature Granulocyte % (Auto) 1 % Neutrophils (%) (Auto) 91 H 42-75 % Lymphocytes (%) (Auto) 5 L 12-44 % Monocytes (%) (Auto) 4 0-12 % Eosinophils (%) (Auto) 0 0-10 % Basophils (%) (Auto) 0 0-10 % Neutrophils # (Auto) 20.5 H 1.8-7.8 10^3/uL Lymphocytes # (Auto) 1.1 1.0-4.0 10^3/uL Monocytes # (Auto) 0.8 0.0-1.0 10^3/uL Eosinophils # (Auto) 0.0 0.0-0.3 10^3/uL Basophils # (Auto) 0.1 0.0-0.1 10^3/uL Immature Granulocyte # (Auto) 0.2 H 0.0-0.1 10^3/uL Neutrophils % (Manual) 89 % Lymphocytes % (Manual) 8 % Monocytes % (Manual) 2 % Band Neutrophils 1 % Anisocytosis SLIGHT Prothrombin Time 13.9 12.2-14.7 SEC INR Comment 1.0 0.8-1.4 Activated Partial Thromboplast Time 26 24-35 SEC Urine Color YELLOW Urine Clarity CLEAR Urine pH 6.0 5-9 Urine Specific [place] 1.010 L 1.016-1.022 Urine Protein 2+ H NEGATIVE Urine Glucose (UA) 3+ H NEGATIVE Urine Ketones 1+ H NEGATIVE Urine Nitrite NEGATIVE NEGATIVE Urine Bilirubin NEGATIVE NEGATIVE Urine Urobilinogen 0.2 < = 1.0 MG/DL Urine Leukocyte Esterase NEGATIVE NEGATIVE Urine RBC (Auto) TRACE-I NEGATIVE Urine RBC RARE /HPF Urine WBC NONE /HPF Urine Squamous Epithelial Cells RARE /HPF Urine Crystals NONE /LPF Urine Bacteria NEGATIVE /HPF Urine Casts NONE /LPF Urine Mucus NEGATIVE /LPF Urine Culture Indicated NO Sodium Level 128 L 135-145 MMOL/L Potassium Level 4.9 3.6-5.0 MMOL/L Chloride Level 76 L 98-107 MMOL/L Carbon Dioxide Level 15 L 21-32 MMOL/L Anion Gap 37 H 5-14 MMOL/L Blood Urea Nitrogen 83 H 7-18 MG/DL Creatinine 5.34 H 0.60-1.30 MG/DL Estimat Glomerular Filtration Rate 8 BUN/Creatinine Ratio 16 Glucose Level 1178 *H 953 *H 70-105 MG/DL Calcium Level 9.8 8.5-10.1 MG/DL Corrected Calcium 9.5 8.5-10.1 MG/DL Magnesium Level 2.4 1.6-2.4 MG/DL Total Bilirubin 1.0 0.1-1.0 MG/DL Aspartate Amino Transf (AST/SGOT) 17 5-34 U/L Alanine Aminotransferase (ALT/SGPT) 14 0-55 U/L Alkaline Phosphatase 122 40-136 U/L Troponin I 0.100 H <0.028 NG/ML Total Protein 8.8 H 6.4-8.2 GM/DL Albumin 4.4 3.2-4.5 GM/DL Lipase 37 8-78 U/L Serum Test, Qualitative NEGATIVE NEGATIVE Test 03/19/21 15:45 Range/Units Blood Gas Puncture Site L RADIAL Blood Gas Patient Temperature 37 Arterial Blood pH 7.29 *L 7.37-7.43 Arterial Blood Partial Pressure CO2 31 L 35-45 MMHG Arterial Blood Partial Pressure O2 70 L 79-93 MMHG Arterial Blood HCO3 14 *L 23-27 MMOL/L Arterial Blood Total CO2 15.1 L 21.0-31.0 MMOL/L Arterial Blood Oxygen Saturation 91 L 94-100 % Arterial Blood Base Excess -11.2 L -2.5-2.5 MMOL/L Long Test YES-POS Blood Gas Ventilator Setting NO Blood Gas Inspired Oxygen ROOM AIR Micro Results Microbiology 03/19/21 Influenza Types A,B Antigen (MARYANA) - Final, Complete My Orders Orders - SARAH CORADO APRN Influenza A And B Antigens (03/19/21 12:48) Covid 19 Inhouse Test (03/19/21 12:48) Cbc With Automated Diff (03/19/21 12:48) Comprehensive Metabolic Panel (03/19/21 12:48) Urinalysis (03/19/21 12:48) Hcg,Qualitative Serum (03/19/21 12:48) Ekg Tracing (03/19/21 12:48) Troponin I (03/19/21 12:48) Magnesium (03/19/21 12:48) Ondansetron Injection (Zofran Injectio (03/19/21 13:00) Blood Culture (03/19/21 13:08) Urine Culture (03/19/21 13:08) Protime With Inr (03/19/21 13:08) Partial Thromboplastin Time (03/19/21 13:08) Chest 1 View, Ap/Pa Only (03/19/21 13:08) Ed Iv/Invasive Line Start (03/19/21 13:08) Vital Signs Adult Sepsis Patie Q15M (03/19/21 13:08) O2 (03/19/21 13:08) Remove Rings In Anticipation O (03/19/21 13:08) Lactic Acid Analyzer (03/19/21 13:08) Ns Iv 500 Ml (Sodium Chloride 0.9%) (03/19/21 13:15) Ns Iv 1000 Ml (Sodium Chloride 0.9%) (03/19/21 13:02) Manual Differential (03/19/21 13:07) Metoprolol Tartrate Injection (Lopressor (03/19/21 14:00) Cefepime Injection (Maxipime Injection) (03/19/21 14:00) Ct Abdomen/Pelvis Wo (03/19/21 13:58) Pantoprazole Injection (Protonix Injecti (03/19/21 14:15) Pantoprazole Injection (Protonix Injecti (03/19/21 13:57) Insulin Regular Drip (Myxredlin 100 Unit (03/19/21 14:15) Insulin (Regular) Human (Novolin R (Per (03/19/21 14:15) Ns W/Kcl 20 Meq/L (Ns Iv W/Kcl 20 Meq/L) (03/19/21 14:15) Lipase (03/19/21 14:39) Ondansetron Injection (Zofran Injectio (03/19/21 15:15) Glucose (03/19/21 15:40) Ns Iv 1000 Ml (Sodium Chloride 0.9%) (03/19/21 16:15) Metoprolol Tartrate Injection (Lopressor (03/19/21 17:00) Arterial Blood Draw (03/19/21 ) Medications Given in ED Current Medications Medications Dose Ordered Sig/Nehemias Route Start Time Stop Time Status Last Admin Dose Admin Cefepime HCl 1000 mg/Sterile Water 10 ml @ 200 mls/hr ONCE ONCE IV 03/19/21 14:00 03/19/21 14:02 DC 03/19/21 13:59 200 MLS/HR Insulin Human Regular 10 unit ONCE ONCE IV 03/19/21 14:15 03/19/21 14:18 DC 03/19/21 14:25 10 UNIT Metoprolol Tartrate 5 mg ONCE ONCE IV 03/19/21 14:00 03/19/21 14:01 DC 03/19/21 13:56 5 MG Metoprolol Tartrate 5 mg ONCE ONCE IV 03/19/21 17:00 03/19/21 17:01 DC 03/19/21 17:05 5 MG Ondansetron HCl 4 mg ONCE ONCE IVP 03/19/21 13:00 03/19/21 13:01 DC 03/19/21 13:12 4 MG Ondansetron HCl 4 mg ONCE ONCE IVP 03/19/21 15:15 03/19/21 15:16 DC 03/19/21 15:21 4 MG Pantoprazole 40 mg ONCE ONCE IV 03/19/21 14:15 03/19/21 14:16 DC 03/19/21 14:05 40 MG Sodium Chloride 1,000 ml @ 999 mls/hr Q1H ONCE IV 03/19/21 16:15 03/19/21 17:15 DC 03/19/21 16:13 999 MLS/HR Vital Signs/I&O 03/19/21 03/19/21 03/19/21 12:38 12:38 17:24 Temp 35.9 Pulse 127 105 Resp 20 16 B/P (MAP) 200/88 (125) 134/74 Pulse Ox 89 89 96 O2 Delivery Room Air Nasal Cannula Nasal Cannula O2 Flow Rate 2.00 2.00 Capillary Refill : Progress Note : Progress Note Patient examined and appears very ill. Basic labs, cardiac workup and UA initially ordered with Covid and influenza. However after further discussion with her we will do sepsis work-up due to recent surgical procedure. Additionally throughout ED course she reported pain in the right side of her chest and in her abdomen. Labs indicative of DKA, sepsis unknown source. Has history of ESRD. Orders placed for IV fluid replacement, given 1 L normal saline, Zofran 8 mg IV push total, pantoprazole 40 mg IV due to brownish emesis and recent placement of anticoagulants. Additionally given cefepime 1 g IV. Chest x-ray, urine, and CT abdomen pelvis showed no acute findings. She was given regular insulin IV bolus 10 units and initiated insulin drip. Case was discussed with Dr. Mcfarland with cardiology who recommended continuing use of beta-blockers for her tachycardia, she was given Lopressor 5 mg IV push. Patient here Dr. Reveles accepted patient transfer to TCU unit at [facility]. Initiated another liter of normal saline after repeat lactic came back >4, also given another 5 mg of Lopressor due to heart rate 125, blood pressure 160/90. Patient stable at this time. ECG Initial ECG Impression Date: March 19, 2021 Initial ECG Impression Time: 12:58 Initial ECG Rate: 137 Initial ECG Rhythm: S.Tach Initial ECG Impression: Nonspecific Changes Diagnostic Imaging Diagonstic Imaging: Xray Plain Films/CT/US/NM/MRI: chest Comments NAME: LAURENCE PLEITEZ MED REC#: [id number] PT STATUS: REG ER : 1965 PHYSICIAN: SARAH CORADO LANDSCAPING SUPERVISOR ADMIT DATE: 03/19/21/ER Draft Date of Exam:03/19/21 CHEST 1 VIEW, AP/PA ONLY INDICATION: Sepsis. COMPARISON: 11/26/2020. FINDINGS: A single frontal view of the chest demonstrates normal heart size and pulmonary vascularity. The lungs are well aerated and clear. No large pleural effusion or pneumothorax is seen. The visualized osseous structures show no acute abnormalities. A right internal jugular dual-lumen central venous catheter is seen. The tip terminates at the cavoatrial junction. IMPRESSION: No acute cardiopulmonary process. Dictated on workstation # [id number] Dict: 03/19/21 1339 Trans: 03/19/21 1340 [id number] Interpreted by: GEORGIA MESSINA MD Electronically signed by: Reviewed: Reviewed by Me Diagonstic Imaging: CT Plain Films/CT/US/NM/MRI: abdomen Comments NAME: LAURENCE PLEITEZ MED REC#: [id number] PT STATUS: REG ER : 1965 PHYSICIAN: SARAH CORADO APRN ADMIT DATE: 03/19/21/ER Draft Date of Exam:03/19/21 CT ABDOMEN/PELVIS WO EXAMINATION: CT abdomen/pelvis wo. TECHNIQUE: Unenhanced CT imaging of the abdomen and pelvis was performed. 2-D reformats are created and submitted for interpretation. Automatic exposure controls were utilized to optimize patient dose. INDICATION: Fever, shortness of air and abdominal pain. COMPARISON: 05/21/2020 FINDINGS: Evaluation of the abdominal viscera is mildly limited without contrast. Lower chest: The lung bases are clear. No pericardial or pleural effusion. Peritoneum: No free intraperitoneal air or fluid. Liver and biliary system: Unenhanced liver is normal. Gallbladder is contracted, limiting assessment. No biliary duct dilatation. Spleen and Pancreas: Spleen is normal. Unenhanced pancreas is grossly normal. Adrenals: Normal. tract: No renal or ureteral calculi. No obstructive uropathy. There is a partially exophytic 12 x 15 mm cyst in the mid aspect of the right kidney which previously had hyperdense hemorrhage within it and is likely a complicated cyst. The urinary bladder is normally filled without wall thickening. Status post hysterectomy. No adnexal mass. GI tract: Stomach is filled with fluid and has no wall thickening. No bowel obstruction. No pericolonic inflammatory changes. Normal appendix. Vasculature and Lymph nodes: Normal caliber aorta with extensive atherosclerotic plaquing. Infrarenal IVC filter is in place. No abdominal or pelvic lymphadenopathy. Musculoskeletal: No concerning osseous lesion. IMPRESSION: 1. No urinary tract calculi or obstructive uropathy. 2. No bowel obstruction. 3. Fluid-filled stomach and small bowel with liquid stool in the colon may be due to a gastroenteritis. Dictated on workstation # [id number] Dict: 03/19/21 1431 Trans: 03/19/21 1442 [facility] [id number] Interpreted by: DARLYN COURTNEY MD Electronically signed by: Reviewed: Reviewed by Me Departure Communication (Admissions) Time/Spoke to Consulting Phy: 14:55 Reviewed EKG and troponin findings with Dr. Mcfarland, recommended continue treatment with beta-blockers as appropriate per patient condition. And to transfer to higher level of care due to multiple comorbidities. Impression Primary Impression: DKA (diabetic ketoacidosis) Additional Impressions: ESRD (end stage renal disease) on dialysis Sepsis Disposition: XF SHT-TRM HOSP Condition: Stable Transfer Transfer Reason: Exceeds level of care Time Spoke to Accepting Phy: 15:08 Transfer Progress Notes Case reviewed with Dr. Reveles at [facility]. Accepted patient transfer at this time. Transfer Facility: [facility]avesh MARCUS Method of Transfer: EMS Departure-Patient Inst. Referrals: NO,LOCAL PHYSICIAN (PCP/Family) Primary Care Physician SARAH CORADO APRN March 19, 2021 12:50
[2021-03-19] MEDS ORDERED: ONDANSETRON 4 MG/2 ML (SDV) Z0FRAN IVP ONE ×3 (13:00→15:15)
[2021-03-19] MEDS ORDERED: NS IV 1000 ML 1,000 ML ONE (13:02)
[2021-03-19] MEDS ORDERED: NS IV 500 ML 500 ML IV ONE (13:15)
[2021-03-19] MEDS ORDERED: NS IV 1000 ML 1,000 ML IV SCH (13:15)
[2021-03-19 13:28] LABS: BASOPHILS # (AUTO) 0.1 10^3/uL (0.0-0.1); BASOPHILS % (AUTO) 0 % (0-10); EOSINOPHILS % (AUTO) 0 % (0-10); HEMATOCRIT 43 % (35-52); LYMPHOCYTES # (AUTO) 1.1 10^3/uL (1.0-4.0); LYMPHOCYTES % (AUTO) 5 % (12-44); MEAN CORPUSCULAR HEMOGLOBIN 32 pg (25-34); MEAN CORPUSCULAR HGB CONC 33 g/dL (32-36); MEAN CORPUSCULAR VOLUME 97 fL (80-99); MEAN PLATELET VOLUME 10.7 fL (9.0-12.2); MONOCYTES # (AUTO) 0.8 10^3/uL (0.0-1.0); MONOCYTES % (AUTO) 4 % (0-12); NEUTROPHILS # (AUTO) 20.5 10^3/uL (1.8-7.8); NEUTROPHILS % (AUTO) 91 % (42-75); PLATELET COUNT 278 10^3/uL (130-400); WHITE BLOOD COUNT 22.7 10^3/uL (4.3-11.0)
[2021-03-19 13:38] LABS: ALBUMIN 4.4 GM/DL (3.2-4.5); POTASSIUM 4.9 MMOL/L (3.6-5.0)
[2021-03-19 13:39] LABS: CALCIUM 9.8 MG/DL (8.5-10.1)
[2021-03-19 13:40] LABS: BILIRUBIN,URINE NEGATIVE (NEGATIVE); CLARITY,URINE CLEAR; COLOR,URINE YELLOW; GLUCOSE, URINE (UA) 3+ (NEGATIVE); KETONES,URINE 1+ (NEGATIVE); LEUKOCYTE ESTERASE ,URINE NEGATIVE (NEGATIVE); NITRITE,URINE NEGATIVE (NEGATIVE); PROTEIN,URINE 2+ (NEGATIVE); PROTHROMBIN TIME PATIENT 13.9 SEC (12.2-14.7); TOTAL PROTEIN 8.8 GM/DL (6.4-8.2)
--- NOTE | 2021-03-19 13:41 | Diagnostic Imaging Report ---
INDICATION: Sepsis. COMPARISON: 11/26/2020. FINDINGS: A single frontal view of the chest demonstrates normal heart size and pulmonary vascularity. The lungs are well aerated and clear. No large pleural effusion or pneumothorax is seen. The visualized osseous structures show no acute abnormalities. A right internal jugular dual-lumen central venous catheter is seen. The tip terminates at the cavoatrial junction. IMPRESSION: No acute cardiopulmonary process. Dictated by: Dictated on workstation # [id number]
[2021-03-19 13:43] LABS: ANISOCYTOSIS SLIGHT; BAND NEUTROPHILS 1 %; LYMPHOCYTES % (MANUAL) 8 %; MONOCYTES % (MANUAL) 2 %; NEUTROPHILS % (MANUAL) 89 %
[2021-03-19 13:44] LABS: CREATININE SERUM 5.34 MG/DL (0.60-1.30)
[2021-03-19 13:47] LABS: BACTERIA,URINE NEGATIVE /HPF; MAGNESIUM 2.4 MG/DL (1.6-2.4); RBC,URINE RARE /HPF; SQUAMOUS EPITHELIAL CELL,UR RARE /HPF
[2021-03-19] MEDS ORDERED: PANTOPRAZOLE 40 MG (PROTONIX) VIAL ONE (13:57)
[2021-03-19] MEDS ORDERED: CEFEPIME INJECTION 1,000 MG in WATER (STERILE) FOR INJECTION 10 ML IV ONE (14:00)
[2021-03-19] MEDS ORDERED: meTOprolol 5 MG/5 ML (LOPRESSOR) VIAL IV ONE ×2 (14:00→17:00)
[2021-03-19] MEDS ORDERED: inSUlin (REGULAR) HUMAN 1 UNIT/0.01 ML (CHARGE PER UNIT) IV ONE (14:15)
[2021-03-19] MEDS ORDERED: NS W/KCL 20 MEQ/L 1,000 ML IV SCH (14:15)
[2021-03-19] MEDS ORDERED: PANTOPRAZOLE 40 MG (PROTONIX) VIAL IV ONE (14:15)
--- NOTE | 2021-03-19 14:42 | Diagnostic Imaging Report ---
EXAMINATION: CT abdomen/pelvis wo. TECHNIQUE: Unenhanced CT imaging of the abdomen and pelvis was performed. 2-D reformats are created and submitted for interpretation. Automatic exposure controls were utilized to optimize patient dose. INDICATION: Fever, shortness of air and abdominal pain. COMPARISON: 05/21/2020 FINDINGS: Evaluation of the abdominal viscera is mildly limited without contrast. Lower chest: The lung bases are clear. No pericardial or pleural effusion. Peritoneum: No free intraperitoneal air or fluid. Liver and biliary system: Unenhanced liver is normal. Gallbladder is contracted, limiting assessment. No biliary duct dilatation. Spleen and Pancreas: Spleen is normal. Unenhanced pancreas is grossly normal. Adrenals: Normal. tract: No renal or ureteral calculi. No obstructive uropathy. There is a partially exophytic 12 x 15 mm cyst in the mid aspect of the right kidney which previously had hyperdense hemorrhage within it and is likely a complicated cyst. The urinary bladder is normally filled without wall thickening. Status post hysterectomy. No adnexal mass. GI tract: Stomach is filled with fluid and has no wall thickening. No bowel obstruction. No pericolonic inflammatory changes. Normal appendix. Vasculature and Lymph nodes: Normal caliber aorta with extensive atherosclerotic plaquing. Infrarenal IVC filter is in place. No abdominal or pelvic lymphadenopathy. Musculoskeletal: No concerning osseous lesion. IMPRESSION: 1. No urinary tract calculi or obstructive uropathy. 2. No bowel obstruction. 3. Fluid-filled stomach and small bowel with liquid stool in the colon may be due to a gastroenteritis. Dictated by: Dictated on workstation # [id number]
[2021-03-19 15:59] LABS: ABG BASE EXCESS -11.2 MMOL/L (-2.5-2.5); ABG OXYGEN SATURATION 91 % (94-100); ABG PCO2 31 MMHG (35-45); ABG PO2 70 MMHG (79-93); ABG TCO2 15.1 MMOL/L (21.0-31.0)
[2021-03-19 16:01] LABS: ABG PH 7.29 (7.37-7.43); ALLENS TEST YES-POS; INSPIRED O2 ROOM AIR; PATIENT TEMP 37; VENTILATOR NO
[2021-03-19] MEDS ORDERED: NS IV 1000 ML 1,000 ML IV ONE (16:15)
[2021-03-19 17:24] VITALS: BP 134/74
== END 2021-03-19 17:24 | disposition short-term general hospital (02) ==
LOC: EDUNIT# 12:38 → ER 12:40
DX: E11.10 Type 2 diabetes mellitus with ketoacidosis without coma (principal); E11.22 Type 2 diabetes mellitus with diabetic chronic kidney disease; I12.0 Hypertensive chronic kidney disease with stage 5 chronic kidney disease or end stage renal disease; A41.9 Sepsis, unspecified organism; N18.6 End stage renal disease; J44.9 Chronic obstructive pulmonary disease, unspecified; I13.2 Hypertensive heart and chronic kidney disease with heart failure and with stage 5 chronic kidney disease, or end stage renal disease; I50.9 Heart failure, unspecified; F41.9 Anxiety disorder, unspecified; Z99.2 Dependence on renal dialysis; Z20.822 Contact with and (suspected) exposure to COVID-19; Z88.5 Allergy status to narcotic agent; Z88.2 Allergy status to sulfonamides; Z88.6 Allergy status to analgesic agent; Z79.4 Long term (current) use of insulin; Z79.82 Long term (current) use of aspirin; Z79.899 Other long term (current) drug therapy
CPT/HCPCS: 36415; 36600; 51702; 71045; 74176; 80053; 81000; 82274; 82805; 82947; 83605; 83690; 83735; 84484; 84703; 85007; 85027; 85610; 85730; 87040; 87088; 87635; 87804; 93005

== ENCOUNTER 2021-04-03 11:30 | Emergency (ER) | payer MEDICAID ==
[~2021-04-03] VITALS: Ht 165 cm; Wt 79.0 kg
[2021-04-03] MEDS ORDERED: fentaNYL INJ 100 MCG/2 ML AMP IVP STA ×2 (11:55→14:04)
--- NOTE | 2021-04-03 12:01 | ED General ---
General Stated Complaint: ELEVATED BLOOD SUGAR Source of Information: Patient, EMS Exam Limitations: No Limitations History of Present Illness Date Seen by Provider: April 03, 2021 Time Seen by Provider: 11:45 Initial Comments Here by EMS with report of elevated blood sugar, tachycardic and febrile. Had dialysis shunt placed last week. Gets dialysis on Friday, Friday and Friday and follows with [facility]. Complains of pain to the surgery site of the arm with some surrounding erythema. Denies Covid symptoms or exposure. Did have Covid testing last week. Denies other exposures overall. Denies significant problems with bowel movement or urination and states that she still urinates quite a bit. She has not been eating or drinking well because of vomiting and has been unable to take her pain medicine. Complains of pain in her back and right arm. Timing/Duration: 2-3 Days, Getting Worse Severity: Moderate Associated Systoms: No Chest Pain, No Cough; Fever/Chills, Loss of Appetite, Nausea/Vomiting; No Shortness of Air; Weakness Allergies and Home Medications Allergies Coded Allergies: morphine (Verified Allergy, Mild, Vomiting, 05/20/20) orange juice (Verified Allergy, Mild, Nausea, 05/24/20) Sulfa (Sulfonamide Antibiotics) (Unverified Allergy, Unknown, 05/11/15) codeine (Verified Allergy, Unknown, TAKES ULTRAM AT HOME, 11/18/08) ketorolac (Verified Allergy, Unknown, 10/05/08) tramadol (Verified Allergy, Unknown, 11/02/11) Home Medications Albuterol Sulfate 1 Puff Puff, 2 PUFF IH TID PRN for SHORTNESS OF BREATH, (Reported) Aspirin 81 Mg Tab.chew, 81 MG PO DAILY, (Reported) Diclofenac Sodium 100 Gm Gel..gram., 1 APPLIC TOP QID PRN for CRAMPS, (Reported) APPLY TO LEGS Ergocalciferol (Vitamin D2) 1,250 Mcg Capsule, 1,250 MCG PO THUR, (Reported) Fluticasone Propionate 9.9 Ml [place].susp, 2 SPRAY NSEACH DAILY, (Reported) Furosemide 80 Mg Tablet, 80 MG PO BID, (Reported) Gabapentin 300 Mg Capsule, 600 MG PO Q8H, (Reported) TAKES 2 (300MG) TABS Insulin Determir 1,000 Units/10 Ml Soln, 15 UNITS SQ HS Prescribed by: TRUDI SERRANO on 11/28/20 1229 Insulin Lispro 100 Unit/1 Ml Insuln.pen, 5-15 UNITS SQ AC, (Reported) Isosorbide Mononitrate 30 Mg Tab.er.24h, 30 MG PO DAILY, (Reported) Lorazepam 1 Mg Tablet, 1 MG PO TID PRN for ANXIETY, (Reported) Magnesium Oxide 400 Mg Tablet, 400 MG PO BID, (Reported) Melatonin 10 Mg Tablet, 10 MG PO HS, (Reported) Metoclopramide HCl 10 Mg Tablet, 10 MG PO QIDACHS, (Reported) Metolazone 5 Mg Tablet, 5 MG PO MON,WE,FR, (Reported) Metoprolol Tartrate 50 Mg Tablet, 75 MG PO BID, (Reported) TAKES 1 & (50MG) TABS Montelukast Sodium 10 Mg Tablet, 10 MG PO HS, (Reported) Multivit-Min/FA/Lycopene/Lut 1 Each Tablet, 1 EA PO DAILY, (Reported) Naloxone HCl 4 Mg [place], 1 SPRAY NS UD PRN for UNRESPONSIVE, (Reported) ADMINSTER 1 SPRAY IN 1 NOSTRIL 1 TIME- MAY REPEAT IN ALTERNATING NOSTRIL EVERY 2-3 MINUTES UNTIL RESPONSIVE OR EMS ARRIVES Omeprazole 20 Mg Capsule.dr, 20 MG PO DAILY, (Reported) Oxycodone HCl 5 Mg Tablet, 5 MG PO DAILY PRN for PAIN-SEVERE (8-10), (Reported) Torsemide 100 Mg Tablet, 100 MG PO 0800,1500, (Reported) [Iron Slow Release] 45 TAB, 45 MG PO DAILY, (Reported) Patient Home Medication List Home Medication List Reviewed: Yes Review of Systems Review of Systems Constitutional: see HPI; No chills; fever, weakness EENTM: No nose congestion, No throat pain Respiratory: No cough, No short of breath Cardiovascular: No chest pain, No edema Gastrointestinal: No abdominal pain; nausea, vomiting Genitourinary: no symptoms reported Musculoskeletal: see HPI, joint pain, muscle pain Skin: change in color, lesions Psychiatric/Neurological: Denies Headache; Weakness All Other Systems Reviewed Negative Unless Noted: Yes Past Mwzhxqe-Yxpsvd-Zwmqol Hx Past Med/Social Hx: Reviewed Nursing Past Med/Soc Hx Patient Social History Alcohol Use: Occasionally Uses Drug of Choice: METH, THC Smoking Status: Current Everyday Smoker Type Used: Cigarettes 2nd Hand Smoke Exposure: No Recent Hopitalizations: No Immunizations Up To Date Tetanus Booster (TDap): Unknown Date of Pneumonia Vaccine: Aug 17, 2012 Date of Influenza Vaccine: Aug 17, 2012 Seasonal Allergies Seasonal Allergies: Yes Past Medical History Surgeries: Yes (URETERAL STENTS) Abdominal, Adenoidectomy, Ear Surgery, Hysterectomy, Renal, Tonsillectomy, Tubal Ligation Respiratory: Yes (INTUBATED 05/16/20 WITH DKA/RESP FAILURE) Asthma, Pneumonia, Chronic Bronchitis, COPD Currently Using CPAP: No Currently Using BIPAP: No Cardiac: Yes (CHF) Deep Vein Thrombosis, High Cholesterol, Hypertension Neurological: Yes Neuropathy Reproductive Disorders: Yes Female Reproductive Disorders: Menstrual Problems [employer] History: Hysterectomy, Menopausal Genitourinary: Yes (NO DIALYSIS; URETERAL STENTS FOR KIDNEY STONES) Renal Failure Gastrointestinal: Yes Hepatitis Musculoskeletal: Yes (CHRONIC GENERALIZED PAIN) Arthritis, Rheumatoid Arthritis, Fractures Endocrine: Yes (NON-COMPLIANT; MULTIPLE EPISODES OF DKA) Diabetes, Insulin dep HEENT: Yes (S/P T&A) Tonsilitis, Glaucoma Loss of Vision: Denies Hearing Impairment: Denies Cancer: No Psychosocial: Yes (POLYSUBSTANCE ABUSE) Anxiety, Personality Disorder, Depression Integumentary: No Blood Disorders: No Adverse Reaction/Blood Tranf: No Family Medical History Reviewed Nursing Family Hx FH: thyroid cancer G8 SISTER FHx: macular degeneration 19 MOTHER Glaucoma G8 BROTHER Heart Disease, Cancer, Diabetes SOCIAL HISTORY: -ETOH--REGULAR USE--"COUPLE OF DRINKS" SEVERAL NIGHTS A WEEK -DRUGS--+ METH AND THC USE -SMOKES > 1 PPD PAST SURGICAL HISTORY: -TONSILLECTOMY AND ADENOIDECTOMY -BILATERAL TUBAL LIGATION -HYSTERECTOMY -EXPLORATORY LAPAROSCOPY -URETERAL STENTS FOR KIDNEY STONES/CYSTOSCOPIES -EAR SURGERY Physical Exam-Suspected Sepsis Physical Exam Vital Signs Vital Signs - First Documented 04/03/21 11:30 Temp 37.1 Pulse 125 Resp 24 B/P (MAP) 144/71 (95) Pulse Ox 98 Capillary Refill : Height, Weight, BMI Height: 5'5.00" Weight: 151lbs. 1.0oz. 68.805852iw; 29.00 BMI Method:Stated General Appearance: No Apparent Distress, WD/WN HEENT: PERRL/EOMI, Pharynx Normal Neck: Non Tender, Supple Respiratory: Lungs Clear, Normal Breath Sounds Cardiovascular: No Murmur, Tachycardia Gastrointestinal: Non Tender, Soft Back: Normal Inspection, No CVA Tenderness, No Vertebral Tenderness Extremity: Normal Range of Motion, No Calf Tenderness, No Pedal Edema, Other (Tenderness to the right arm. Surgical wound covered by island dressing with surrounding erythema. No obvious purulent drainage.) Neurologic/Psychiatric: Alert, Oriented x3, No Motor/Sensory Deficits Skin: warm/dry; No rash, No ulcerations; other (Erythema has described above. Island dressing removed and shows the wound line to be stapled and clean, dry and intact without purulent drainage.) Focused Exam Lactate Level 04/03/21 11:42: Lactic Acid Level 2.42*H 04/03/21 14:23: Lactic Acid Level 1.76 Lactic Acid Level Laboratory Tests Test 04/03/21 14:23 Lactic Acid Level 1.76 MMOL/L (0.50-2.00) Procedures/Interventions Date of ETT Placement: May 20, 2020 Time of ETT Placement: 0700 Progress/Results/Core Measures Suspected Sepsis SIRS Temperature: Pulse: Respiratory Rate: Laboratory Tests 04/03/21 11:42: White Blood Count 14.9H Blood Pressure / Mean: 04/03/21 11:42: Lactic Acid Level 2.42*H 04/03/21 14:23: Lactic Acid Level 1.76 Laboratory Tests 04/03/21 11:42: Creatinine 3.61H, INR Comment 1.1, Platelet Count 349, Total Bilirubin 0.5 Results/Orders Lab Results Laboratory Tests Test 04/03/21 11:42 04/03/21 14:21 04/03/21 14:23 04/03/21 14:55 Range/Units White Blood Count 14.9 H 4.3-11.0 10^3/uL Red Blood Count 3.47 L 3.80-5.11 10^6/uL Hemoglobin 11.1 L 11.5-16.0 g/dL Hematocrit 35 35-52 % Mean Corpuscular Volume 101 H 80-99 fL Mean Corpuscular Hemoglobin 32 25-34 pg Mean Corpuscular Hemoglobin Concent 32 32-36 g/dL Red Cell Distribution Width 14.1 10.0-14.5 % Platelet Count 349 130-400 10^3/uL Mean Platelet Volume 10.1 9.0-12.2 fL Immature Granulocyte % (Auto) 1 % Neutrophils (%) (Auto) 88 H 42-75 % Lymphocytes (%) (Auto) 7 L 12-44 % Monocytes (%) (Auto) 3 0-12 % Eosinophils (%) (Auto) 0 0-10 % Basophils (%) (Auto) 1 0-10 % Neutrophils # (Auto) 13.2 H 1.8-7.8 10^3/uL Lymphocytes # (Auto) 1.1 1.0-4.0 10^3/uL Monocytes # (Auto) 0.5 0.0-1.0 10^3/uL Eosinophils # (Auto) 0.0 0.0-0.3 10^3/uL Basophils # (Auto) 0.1 0.0-0.1 10^3/uL Immature Granulocyte # (Auto) 0.1 0.0-0.1 10^3/uL Neutrophils % (Manual) 90 % Lymphocytes % (Manual) 7 % Monocytes % (Manual) 1 % Basophils % (Manual) 1 % Band Neutrophils 1 % Anisocytosis SLIGHT Macrocytosis SLIGHT Prothrombin Time 14.2 12.2-14.7 SEC INR Comment 1.1 0.8-1.4 Activated Partial Thromboplast Time 25 24-35 SEC D-Dimer 1.29 H 0.00-0.49 UG/ML Sodium Level 125 *L 135-145 MMOL/L Potassium Level 4.6 3.6-5.0 MMOL/L Chloride Level 85 L 98-107 MMOL/L Carbon Dioxide Level 11 L 21-32 MMOL/L Anion Gap 29 H 5-14 MMOL/L Blood Urea Nitrogen 39 H 7-18 MG/DL Creatinine 3.61 H 0.60-1.30 MG/DL Estimat Glomerular Filtration Rate 13 BUN/Creatinine Ratio 11 Glucose Level 897 *H 70-105 MG/DL Lactic Acid Level 2.42 *H 1.76 0.50-2.00 MMOL/L Calcium Level 8.9 8.5-10.1 MG/DL Corrected Calcium 9.2 8.5-10.1 MG/DL Total Bilirubin 0.5 0.1-1.0 MG/DL Aspartate Amino Transf (AST/SGOT) 14 5-34 U/L Alanine Aminotransferase (ALT/SGPT) 15 0-55 U/L Alkaline Phosphatase 109 40-136 U/L C-Reactive Protein High Sensitivity 5.54 H 0.00-0.50 MG/DL Total Protein 7.3 6.4-8.2 GM/DL Albumin 3.6 3.2-4.5 GM/DL Procalcitonin 0.25 H <0.10 NG/ML SARS-CoV-2 RNA (RT-PCR) Not Detected Not Detecte Glucometer 588 *H 70-110 MG/DL Urine Color YELLOW Urine Clarity CLEAR Urine pH 5.5 5-9 Urine Specific [place] 1.015 L 1.016-1.022 Urine Protein 1+ H NEGATIVE Urine Glucose (UA) 3+ H NEGATIVE Urine Ketones 2+ H NEGATIVE Urine Nitrite NEGATIVE NEGATIVE Urine Bilirubin NEGATIVE NEGATIVE Urine Urobilinogen 0.2 < = 1.0 MG/DL Urine Leukocyte Esterase NEGATIVE NEGATIVE Urine RBC (Auto) NEGATIVE NEGATIVE Urine RBC NONE /HPF Urine WBC NONE /HPF Urine Squamous Epithelial Cells 2-5 /HPF Urine Crystals PRESENT H /LPF Urine Amorphous Sediment LARGE JOSH URATES H /LPF Urine Bacteria NEGATIVE /HPF Urine Casts NONE /LPF Urine Mucus NEGATIVE /LPF Urine Culture Indicated NO Test 04/03/21 16:07 Range/Units Glucometer 466 *H 70-110 MG/DL My Orders Orders - SUZETTE HEATH MD Cbc With Automated Diff (04/03/21 11:55) Comprehensive Metabolic Panel (04/03/21 11:55) Blood Culture (04/03/21 11:55) Sputum Culture (04/03/21 11:55) Urinalysis (04/03/21 11:55) Urine Culture (04/03/21 11:55) Protime With Inr (04/03/21 11:55) Partial Thromboplastin Time (04/03/21 11:55) Chest 1 View, Ap/Pa Only (04/03/21 11:55) Ed Iv/Invasive Line Start (04/03/21 11:55) Vital Signs Adult Sepsis Patie Q15M (04/03/21 11:55) O2 (04/03/21 11:55) Remove Rings In Anticipation O (04/03/21 11:55) Lactic Acid Analyzer (04/03/21 11:55) Fibrin Degradation Products (04/03/21 11:55) Procalcitonin (Pct) (04/03/21 11:55) Hs C Reactive Protein (04/03/21 11:55) Covid 19 Inhouse Test (04/03/21 11:55) Fentanyl Inj (Sublimaze Injection) (04/03/21 11:55) Manual Differential (04/03/21 11:42) Insulin (Regular) Human (Novolin R (Per (04/03/21 12:19) Insulin (Regular) Human (Novolin R (Per (04/03/21 12:12) Fentanyl Inj (Sublimaze Injection) (04/03/21 14:04) Oxycodone Immediate Rel Tablet (Oxyir Ta (04/03/21 16:15) Accucheck Stat ONCE (04/03/21 16:04) Insulin (Regular) Human (Novolin R (Per (04/03/21 16:09) Medications Given in ED Current Medications Medications Dose Ordered Sig/Nehemias Route Start Time Stop Time Status Last Admin Dose Admin Oxycodone HCl 5 mg ONCE ONCE PO 04/03/21 16:15 04/03/21 16:16 DC 04/03/21 16:14 5 MG Vital Signs/I&O 04/03/21 11:30 Temp 37.1 Pulse 125 Resp 24 B/P (MAP) 144/71 (95) Pulse Ox 98 Capillary Refill : Progress Note : Progress Note Seen and evaluated on arrival by EMS. IV established by EMS which we will continue at approximately 125-150/ml an hour. Sepsis protocol initiated and we will also repeat Covid testing. This was negative last week when she had her procedure done. EMS did report febrile on their testing as well as blood sugars too high to read on their meter. Fentanyl 50 mcg IV ordered for pain. Monitor patient. 1420: Evaluation is concerning for possibility of infection including elevated lactic acid. Patient's blood sugar is quite uncontrolled. Blood sugar now down to 500s after 10 units of insulin IV. We are still pending UA. We do not have dialysis capability here to continue management of this patient if she needs admission and she would need to be transferred. This was discussed with the patient and she has history and relationship at [facility] in [place], [place]. This is the center that she would like to go to if needed. Patient did get 75 mcg of fentanyl IV for persistent right upper extremity pain. Mon itor patient. 1604: Patient is actually feeling a little better now. UA is negative for infection. Chest x-ray is also negative for pneumonia or volume overload. Arm wound appears appropriate and without significant infection. If patient can tolerate p.o. then she might be able to go home versus admission/transfer. We will recheck her blood sugar and adjust insulin as needed and give her oxycodone 5 mg 1 tab p.o. now and see if she can tolerate p.o. Patient is fully in agreement with this plan and would prefer to go home if possible. 1656: Patient is tolerated med without difficulty and is overall feeling better. She would like to go home and I think this is safe to do. She will follow-up for her dialysis tomorrow. Her daughter will bring her home. Discharged home with return precautions. Patient verbalized understanding instructions and agreement with plan. Diagnostic Imaging Diagonstic Imaging: Xray Plain Films/CT/US/NM/MRI: chest Comments [facility]. [place], [place] NAME: LAURENCE PLEITEZ [facility] REC#: [id number] PT STATUS: REG ER : 1965 PHYSICIAN: SUZETTE HEATH MD ADMIT DATE: 04/03/21/ER Draft Date of Exam:04/03/21 CHEST 1 VIEW, AP/PA ONLY INDICATION: Sepsis. EXAMINATION: Portable chest at 12:52 p.m. FINDINGS: Heart size and pulmonary vascularity are normal. Lungs are clear. There are no effusions or pneumothoraces. There is a dual-lumen right IJ central line with tip projecting over the cavoatrial junction. IMPRESSION: No acute abnormalities in the chest. Dictated on workstation # [id number] Dict: 04/03/21 1320 Trans: 04/03/21 1336 [id number] Interpreted by: SUZETTE BURNS MD Electronically signed by: Departure Impression Primary Impression: Uncontrolled diabetes mellitus with hyperglycemia Qualified Codes: E13.65 - Other specified diabetes mellitus with hyperglycemia Additional Impressions: Nausea and vomiting Qualified Codes: R11.2 - Nausea with vomiting, unspecified End stage renal disease on dialysis Disposition: 01 HOME, SELF-CARE Condition: Stable Departure-Patient Inst. Decision time for Depature: 16:58 Referrals: NO,LOCAL PHYSICIAN (PCP/Family) Primary Care Physician Patient Instructions: Nausea and Vomiting, Adult, Hyperglycemia, Adult (DC), Chronic Kidney Disease (DC) Add. Discharge Instructions: Continue home medications as previously prescribed. Keep your dialysis appointment tomorrow. Follow-up with your surgeon for recheck of the wound as previously scheduled. Return for worse pain, fever, vomiting, weakness, breathing problems or other concerns as needed. SUZETTE HEATH MD April 03, 2021 12:01
[2021-04-03 12:05] LABS: BASOPHILS # (AUTO) 0.1 10^3/uL (0.0-0.1); BASOPHILS % (AUTO) 1 % (0-10); EOSINOPHILS % (AUTO) 0 % (0-10); HEMATOCRIT 35 % (35-52); HEMOGLOBIN 11.1 g/dL (11.5-16.0); LYMPHOCYTES # (AUTO) 1.1 10^3/uL (1.0-4.0); LYMPHOCYTES % (AUTO) 7 % (12-44); MEAN CORPUSCULAR HEMOGLOBIN 32 pg (25-34); MEAN CORPUSCULAR HGB CONC 32 g/dL (32-36); MEAN CORPUSCULAR VOLUME 101 fL (80-99); MEAN PLATELET VOLUME 10.1 fL (9.0-12.2); MONOCYTES # (AUTO) 0.5 10^3/uL (0.0-1.0); MONOCYTES % (AUTO) 3 % (0-12); NEUTROPHILS # (AUTO) 13.2 10^3/uL (1.8-7.8); NEUTROPHILS % (AUTO) 88 % (42-75); PLATELET COUNT 349 10^3/uL (130-400); WHITE BLOOD COUNT 14.9 10^3/uL (4.3-11.0)
[2021-04-03 12:06] LABS: ALBUMIN 3.6 GM/DL (3.2-4.5); POTASSIUM 4.6 MMOL/L (3.6-5.0)
[2021-04-03 12:08] LABS: CALCIUM 8.9 MG/DL (8.5-10.1)
[2021-04-03 12:09] LABS: TOTAL PROTEIN 7.3 GM/DL (6.4-8.2)
[2021-04-03 12:11] LABS: BILIRUBIN,TOTAL 0.5 MG/DL (0.1-1.0)
[2021-04-03] MEDS ORDERED: inSUlin (REGULAR) HUMAN 1 UNIT/0.01 ML (CHARGE PER UNIT) ONE (12:12)
[2021-04-03 12:13] LABS: CREATININE SERUM 3.61 MG/DL (0.60-1.30); FIBRIN DEGRADATION PRODUCTS 1.29 UG/ML (0.00-0.49); INR 1.1 (0.8-1.4); PROTHROMBIN TIME PATIENT 14.2 SEC (12.2-14.7)
[2021-04-03] MEDS ORDERED: inSUlin (REGULAR) HUMAN 1 UNIT/0.01 ML (CHARGE PER UNIT) IV STA (12:19)
[2021-04-03 12:42] LABS: ANISOCYTOSIS SLIGHT; BAND NEUTROPHILS 1 %; BASOPHILS % (MANUAL) 1 %; LYMPHOCYTES % (MANUAL) 7 %; MONOCYTES % (MANUAL) 1 %; NEUTROPHILS % (MANUAL) 90 %
--- NOTE | 2021-04-03 13:37 | Diagnostic Imaging Report ---
INDICATION: Sepsis. EXAMINATION: Portable chest at 12:52 p.m. FINDINGS: Heart size and pulmonary vascularity are normal. Lungs are clear. There are no effusions or pneumothoraces. There is a dual-lumen right IJ central line with tip projecting over the cavoatrial junction. IMPRESSION: No acute abnormalities in the chest. Dictated by: Dictated on workstation # [id number]
[2021-04-03 15:05] LABS: BILIRUBIN,URINE NEGATIVE (NEGATIVE); CLARITY,URINE CLEAR; COLOR,URINE YELLOW; GLUCOSE, URINE (UA) 3+ (NEGATIVE); KETONES,URINE 2+ (NEGATIVE); LEUKOCYTE ESTERASE ,URINE NEGATIVE (NEGATIVE); NITRITE,URINE NEGATIVE (NEGATIVE); PH,URINE 5.5 (5-9); PROTEIN,URINE 1+ (NEGATIVE)
[2021-04-03 15:22] LABS: AMORPHOUS SEDIMENT,UR LARGE AMOR URATES /LPF; BACTERIA,URINE NEGATIVE /HPF
[2021-04-03] MEDS ORDERED: inSUlin (REGULAR) HUMAN 1 UNIT/0.01 ML (CHARGE PER UNIT) SC STA (16:09)
[2021-04-03 17:18] VITALS: BP 144/68
== END 2021-04-03 17:50 | disposition home or self-care (01) ==
LOC: EDUNIT# 11:31 → ER 11:34
DX: E11.65 Type 2 diabetes mellitus with hyperglycemia (principal); R11.2 Nausea with vomiting, unspecified; I13.2 Hypertensive heart and chronic kidney disease with heart failure and with stage 5 chronic kidney disease, or end stage renal disease; E11.22 Type 2 diabetes mellitus with diabetic chronic kidney disease; N18.6 End stage renal disease; I50.9 Heart failure, unspecified; M79.601 Pain in right arm; J44.9 Chronic obstructive pulmonary disease, unspecified; E11.40 Type 2 diabetes mellitus with diabetic neuropathy, unspecified; M06.9 Rheumatoid arthritis, unspecified; F41.9 Anxiety disorder, unspecified; F32.9 Major depressive disorder, single episode, unspecified; F17.210 Nicotine dependence, cigarettes, uncomplicated; Z99.2 Dependence on renal dialysis; Z88.5 Allergy status to narcotic agent; Z88.2 Allergy status to sulfonamides; Z79.82 Long term (current) use of aspirin; Z79.51 Long term (current) use of inhaled steroids; Z79.4 Long term (current) use of insulin; Z79.899 Other long term (current) drug therapy
CPT/HCPCS: 36415; 71045; 80053; 81000; 82947; 83605; 84145; 85007; 85027; 85379; 85610; 85730; 86141; 87040; 87088; 87636

== ENCOUNTER 2021-06-07 13:25 | Emergency (ER) | payer MEDICAID ==
[~2021-06-07] VITALS: Ht 165 cm; Wt 72.0 kg
[~2021-06-07 13:25] MED LIST changes: +DICL100G13 TOP; -DICL100G31 TOP; +ERGO1250 PO; -ERGO50006 PO
[2021-06-07] MEDS ORDERED: PRD20T PO (13:42)
[2021-06-07] MEDS ORDERED: CEPH500T PO (13:42)
--- NOTE | 2021-06-07 13:42 | ED General ---
General Stated Complaint: ALLERGIC REACTION Source of Information: Patient Exam Limitations: No Limitations History of Present Illness Date Seen by Provider: Jun 07, 2021 Time Seen by Provider: 13:36 Initial Comments With bilateral MRI and generalized facial redness swelling and itching sudden onset 4 days ago. This began after drinking some different pineapple juice that she is not used to. However she has not had any more of it and the rash persists. She has been taking 2 Benadryl every 4-6 hours Timing/Duration: 1-2 Days Severity: Moderate Associated Systoms: Nausea/Vomiting Allergies and Home Medications Allergies Coded Allergies: morphine (Verified Allergy, Mild, Vomiting, 05/20/20) orange juice (Verified Allergy, Mild, Nausea, 05/24/20) Sulfa (Sulfonamide Antibiotics) (Unverified Allergy, Unknown, 05/11/15) codeine (Verified Allergy, Unknown, TAKES ULTRAM AT HOME, 11/18/08) ketorolac (Verified Allergy, Unknown, 10/05/08) tramadol (Verified Allergy, Unknown, 11/02/11) Home Medications Albuterol Sulfate 1 Puff Puff, 2 PUFF IH TID PRN for SHORTNESS OF BREATH, (Reported) Aspirin 81 Mg Tab.chew, 81 MG PO DAILY, (Reported) Diclofenac Sodium 100 Gm Gel..gram., 1 APPLIC TOP QID PRN for CRAMPS, (Reported) APPLY TO LEGS Ergocalciferol (Vitamin D2) 1,250 Mcg Capsule, 1,250 MCG PO THUR, (Reported) Fluticasone Propionate 9.9 Ml [place].susp, 2 SPRAY NSEACH DAILY, (Reported) Furosemide 80 Mg Tablet, 80 MG PO BID, (Reported) Gabapentin 300 Mg Capsule, 600 MG PO Q8H, (Reported) TAKES 2 (300MG) TABS Insulin Determir 1,000 Units/10 Ml Soln, 15 UNITS SQ HS Prescribed by: TRUDI SERRANO on 11/28/20 1229 Insulin Lispro 100 Unit/1 Ml Insuln.pen, 5-15 UNITS SQ AC, (Reported) Isosorbide Mononitrate 30 Mg Tab.er.24h, 30 MG PO DAILY, (Reported) Lorazepam 1 Mg Tablet, 1 MG PO TID PRN for ANXIETY, (Reported) Magnesium Oxide 400 Mg Tablet, 400 MG PO BID, (Reported) Melatonin 10 Mg Tablet, 10 MG PO HS, (Reported) Metoclopramide HCl 10 Mg Tablet, 10 MG PO QIDACHS, (Reported) Metolazone 5 Mg Tablet, 5 MG PO MON,WE,FR, (Reported) Metoprolol Tartrate 50 Mg Tablet, 75 MG PO BID, (Reported) TAKES 1 & (50MG) TABS Montelukast Sodium 10 Mg Tablet, 10 MG PO HS, (Reported) Multivit-Min/FA/Lycopene/Lut 1 Each Tablet, 1 EA PO DAILY, (Reported) Naloxone HCl 4 Mg [place], 1 SPRAY NS UD PRN for UNRESPONSIVE, (Reported) ADMINSTER 1 SPRAY IN 1 NOSTRIL 1 TIME- MAY REPEAT IN ALTERNATING NOSTRIL EVERY 2-3 MINUTES UNTIL RESPONSIVE OR EMS ARRIVES Omeprazole 20 Mg Capsule.dr, 20 MG PO DAILY, (Reported) Oxycodone HCl 5 Mg Tablet, 5 MG PO DAILY PRN for PAIN-SEVERE (8-10), (Reported) Torsemide 100 Mg Tablet, 100 MG PO 0800,1500, (Reported) [Iron Slow Release] 45 TAB, 45 MG PO DAILY, (Reported) Patient Home Medication List Home Medication List Reviewed: Yes Review of Systems Review of Systems Constitutional: see HPI EENTM: see HPI Respiratory: no symptoms reported Cardiovascular: no symptoms reported Genitourinary: no symptoms reported Musculoskeletal: no symptoms reported Skin: see HPI, pruritus, rash Psychiatric/Neurological: No Symptoms Reported Hematologic/Lymphatic: No Symptoms Reported Immunological/Allergic: no symptoms reported Past Kkxsnjp-Hbaaei-Mvbmte Hx Immunizations Up To Date Tetanus Booster (TDap): Unknown Seasonal Allergies Seasonal Allergies: Yes Past Medical History Surgeries: Yes (URETERAL STENTS) Abdominal, Adenoidectomy, Ear Surgery, Hysterectomy, Renal, Tonsillectomy, Tubal Ligation Respiratory: Yes (INTUBATED 05/16/20 WITH DKA/RESP FAILURE) Asthma, Pneumonia, Chronic Bronchitis, COPD Currently Using CPAP: No Currently Using BIPAP: No Cardiac: Yes (CHF) Deep Vein Thrombosis, High Cholesterol, Hypertension Neurological: Yes Neuropathy Reproductive Disorders: Yes Female Reproductive Disorders: Menstrual Problems [employer] History: Hysterectomy, Menopausal Genitourinary: Yes (NO DIALYSIS; URETERAL STENTS FOR KIDNEY STONES) Renal Failure Gastrointestinal: Yes Hepatitis Musculoskeletal: Yes (CHRONIC GENERALIZED PAIN) Arthritis, Rheumatoid Arthritis, Fractures Endocrine: Yes (NON-COMPLIANT; MULTIPLE EPISODES OF DKA) Diabetes, Insulin dep HEENT: Yes (S/P T&A) Tonsilitis, Glaucoma Loss of Vision: Denies Hearing Impairment: Denies Cancer: No Psychosocial: Yes (POLYSUBSTANCE ABUSE) Anxiety, Personality Disorder, Depression Integumentary: No Blood Disorders: No Adverse Reaction/Blood Tranf: No Family Medical History FH: thyroid cancer G8 SISTER FHx: macular degeneration 19 MOTHER Glaucoma G8 BROTHER Heart Disease, Cancer, Diabetes SOCIAL HISTORY: -ETOH--REGULAR USE--"COUPLE OF DRINKS" SEVERAL NIGHTS A WEEK -DRUGS--+ METH AND THC USE -SMOKES > 1 PPD PAST SURGICAL HISTORY: -TONSILLECTOMY AND ADENOIDECTOMY -BILATERAL TUBAL LIGATION -HYSTERECTOMY -EXPLORATORY LAPAROSCOPY -URETERAL STENTS FOR KIDNEY STONES/CYSTOSCOPIES -EAR SURGERY Physical Exam Vital Signs Capillary Refill : Height, Weight, BMI Height: 5'5.00" Weight: 151lbs. 1.0oz. 68.099938mz; 29.00 BMI Method:Stated General Appearance: No Apparent Distress, WD/WN, Other (No intraoral swelling or edema. There is bilateral periorbital edema and erythema.) Eyes: Bilateral Eye Normal Inspection, Bilateral Eye PERRL HEENT: PERRL/EOMI, TMs Normal Neck: Full Range of Motion, Normal Inspection Respiratory: Normal Breath Sounds, No Accessory Muscle Use, No Respiratory Dis tress Cardiovascular: Regular Rate, Rhythm, Normal Peripheral Pulses Gastrointestinal: Normal Bowel Sounds, Non Tender, Soft Extremity: Normal Capillary Refill, Normal Inspection Neurologic/Psychiatric: Alert, Oriented x3 Skin: Normal Color, Warm/Dry Procedures/Interventions Date of ETT Placement: May 20, 2020 Time of ETT Placement: 0700 Progress/Results/Core Measures Suspected Sepsis SIRS Temperature: Pulse: Respiratory Rate: Blood Pressure / Mean: Results/Orders My Orders Orders - LIZET MAS APRN Diphenhydramine Injection (Benadryl Inje (06/07/21 13:45) Methylprednisolone Sod Succ (Solu-Medrol (06/07/21 13:45) Famotidine Injection (Pepcid Injection) (06/07/21 13:45) Vital Signs/I&O Capillary Refill : Departure Communication (Admissions) Given that there is minimal improvement with Benadryl use at home, she has end- stage renal disease formerly on hemodialysis. See anything that confirmed infectious etiology but I will do some Keflex for a couple of days in addition to steroids. Hello Impression Primary Impression: Urticaria Disposition: HOME, SELF-CARE Condition: Stable Departure-Patient Inst. Decision time for Depature: 13:39 Referrals: ELIECER COLON DO (PCP/Family) Primary Care Physician Patient Instructions: Hives Add. Discharge Instructions: Because of the low risk but possibility of a bacterial infection contributing to this, take the antibiotics as directed in addition to steroids. Continue with Benadryl. Scripts Cephalexin (Cephalexin) 500 Mg Tablet 500 MG PO TID, #10 TAB Prov: LIZET MAS APRN 06/07/21 Prednisone (Prednisone) 20 Mg Tab 40 MG PO DAILY, #6 TAB 0 Refills Prov: LIZET MAS APRN 06/07/21 LIZET MAS APRN Jun 07, 2021 13:42
[2021-06-07] MEDS ORDERED: diphenhydrAMINE 50 MG/ML INJ (BENADRYL) IVP ONE (13:45)
[2021-06-07] MEDS ORDERED: FAMOTIDINE 20MG/2ML IV (PEPCID) IVP ONE (13:45)
[2021-06-07] MEDS ORDERED: methylPREDNISolone 125 MG (Solu-MEDROL) VIAL IVP ONE (13:45)
[2021-06-07 14:41] VITALS: BP 112/84
== END 2021-06-07 14:41 | disposition home or self-care (01) ==
LOC: EDUNIT# 13:25 → ER 13:27
DX: L50.9 Urticaria, unspecified (principal); J44.9 Chronic obstructive pulmonary disease, unspecified; I11.0 Hypertensive heart disease with heart failure; I50.9 Heart failure, unspecified; E11.9 Type 2 diabetes mellitus without complications; F41.9 Anxiety disorder, unspecified; Z79.82 Long term (current) use of aspirin; Z79.4 Long term (current) use of insulin; Z79.899 Other long term (current) drug therapy

== ENCOUNTER 2021-12-01 03:18 | Emergency (ER) | payer MEDICAID ==
[~2021-12-01] VITALS: Ht 165.1 cm; Wt 73.5 kg
[~2021-12-01 03:18] MED LIST changes: +CEPH500T PO; +CHOL10004 PO; -CHOL100045 PO; -MAGN400T8 PO; +MGX400T PO; +MONT-40 PO; -MONT10TA32 PO; -POTA99TA21 PO; +POTA99TA26 PO; +PRD20T PO
[2021-12-01] MEDS ORDERED: NS IV 1000 ML 1,000 ML IV STA (03:22)
[2021-12-01] MEDS ORDERED: ONDANSETRON 4 MG/2 ML (SDV) Z0FRAN IVP ONE ×3 (03:30→09:15)
[2021-12-01 03:46] LABS: BASOPHILS # (AUTO) 0.1 10^3/uL (0.0-0.1); BASOPHILS % (AUTO) 1 % (0-10); EOSINOPHILS % (AUTO) 0 % (0-10); HEMATOCRIT 42 % (35-52); HEMOGLOBIN 12.3 g/dL (11.5-16.0); LYMPHOCYTES # (AUTO) 1.4 10^3/uL (1.0-4.0); LYMPHOCYTES % (AUTO) 7 % (12-44); MEAN CORPUSCULAR HEMOGLOBIN 33 pg (25-34); MEAN CORPUSCULAR HGB CONC 29 g/dL (32-36); MEAN CORPUSCULAR VOLUME 113 fL (80-99); MEAN PLATELET VOLUME 11.2 fL (9.0-12.2); MONOCYTES # (AUTO) 1.6 10^3/uL (0.0-1.0); MONOCYTES % (AUTO) 8 % (0-12); NEUTROPHILS # (AUTO) 16.2 10^3/uL (1.8-7.8); NEUTROPHILS % (AUTO) 83 % (42-75); PLATELET COUNT 309 10^3/uL (130-400); WHITE BLOOD COUNT 19.6 10^3/uL (4.3-11.0)
[2021-12-01 04:00] LABS: CHLORIDE 63 MMOL/L (98-107); POTASSIUM 6.2 MMOL/L (3.6-5.0)
--- NOTE | 2021-12-01 04:00 | ED General ---
General Chief Complaint: Glucose Problems Stated Complaint: DIABETES Source of Information: Patient (SOMEWHAT LIMITED HISTORIAN), Old Records (LAURENCE PRADO ) History of Present Illness Date Seen by Provider: Dec 01, 2021 Time Seen by Provider: 03:21 Initial Comments PT ARRIVES VIA EMS FROM HOME C/O NAUSEA AND VOMITING FOR THE LAST 24 HOURS PT WITH LONGSTANDING HISTORY OF NON-COMPLAINCY, WITH DIABETES, WITH MULTIPLE EPISODES OF DKA IS UNCLEAR WHEN SHE LAST TOOK ANY INSULIN OR ANY OF HER MEDICATIONS GLUCOMETER READ "HIGH" FOR EMS PT ALSO HAS ESRD ON DIALYSIS, AND IS DUE FOR DIALYSIS TODAY. STATES SHE HAS BEEN CONSTANTLY DRINKING WATER AND KEEPS VOMITING NO DIARRHEA NO ABDOMINAL PAIN STATES SHE HAS "FELT HOT" BUT HAS NOT CHECKED HER TEMP STATES SHE STILL MAKES URINE AND HAS BEEN URINATING ALOT C/O GENERALIZED WEAKNESS PT HAS NOT HAD COVID OR FLU VACCINES DENIES ANY RESPIRATORY SYMPTOMS PT STATES SHE HAD AN APPOINTMENT WITH HER PCP, DR. Jamila COLON, IN [place] YESTERDAY, BUT DID NOT GO. PT WITH LONGSTANDING HISTORY OF HEAVY SMOKING, ALCOHOL ABUSE AND IV METH AND THC USE. LONGSTANDING HISTORY OF NONCOMPLIANCE IN ALL ASPECTS OF CARE PCP: DR. ELIECER COLON IN [place] (LAURENCE PRADO DO) Allergies and Home Medications Allergies Coded Allergies: morphine (Verified Allergy, Mild, Vomiting, 05/20/20) orange juice (Verified Allergy, Mild, Nausea, 05/24/20) Sulfa (Sulfonamide Antibiotics) (Unverified Allergy, Unknown, 05/11/15) codeine (Verified Allergy, Unknown, TAKES ULTRAM AT HOME, 11/18/08) ketorolac (Verified Allergy, Unknown, 10/05/08) tramadol (Verified Allergy, Unknown, 11/02/11) Patient Home Medication List Home Medication List Reviewed: Yes (SOCO ORTEZ MD) Albuterol Sulfate (Proair Hfa) 1 Puff Puff, 2 PUFF IH TID PRN for SHORTNESS OF BREATH, (Reported) Entered as Reported by: ISABELLA DAMIAN on 06/28/19 0913 Aspirin (Aspirin) 81 Mg Tab.chew, 81 MG PO DAILY, (Reported) Entered as Reported by: CAMRON HAND on 08/08/20 1012 Cephalexin (Cephalexin) 500 Mg Tablet, 500 MG PO TID Prescribed by: LIZET MAS on 06/07/21 1342 Diclofenac Sodium (Diclofenac Sodium) 100 Gm Gel..gram., 1 APPLIC TOP QID PRN for CRAMPS, (Reported) Entered as Reported by: CAMRON HAND on 05/04/20 1349 Ergocalciferol (Vitamin D2) (Vitamin D2) 1,250 Mcg Capsule, 1,250 MCG PO THUR, (Reported) Entered as Reported by: CAMRON HAND on 11/27/20 1104 Fluticasone Propionate (Flonase Allergy Relief) 9.9 Ml [place].susp, 2 SPRAY NSEACH DAILY, (Reported) Entered as Reported by: CAMRON HAND on 05/04/20 1349 Furosemide (Furosemide) 80 Mg Tablet, 80 MG PO BID, (Reported) Entered as Reported by: CAMRON HAND on 11/27/20 110 Gabapentin (Neurontin) 300 Mg Capsule, 600 MG PO Q8H, (Reported) Entered as Reported by: CAMRON HAND on 08/08/20 1012 Insulin Determir (Levemir) 1,000 Units/10 Ml Soln, 15 UNITS SQ HS Prescribed by: TRUDI SERRANO on 11/28/20 1229 Insulin Lispro (Humalog Kwikpen) 100 Unit/1 Ml Insuln.pen, 5-15 UNITS SQ AC, (Reported) Entered as Reported by: CAMRON HAND on 12/27/19 1551 Isosorbide Mononitrate (Isosorbide Mononitrate ER) 30 Mg Tab.er.24h, 30 MG PO DAILY, (Reported) Entered as Reported by: CAMRON HAND on 11/27/20 110 Lorazepam (Ativan) 1 Mg Tablet, 1 MG PO TID PRN for ANXIETY, (Reported) Entered as Reported by: CAMRON HAND on 11/27/20 110 Magnesium Oxide (Magnesium Oxide) 400 Mg Tablet, 400 MG PO BID, (Reported) Entered as Reported by: CAMRON HAND on 11/27/20 110 Melatonin (Melatonin) 10 Mg Tablet, 10 MG PO HS, (Reported) Entered as Reported by: CAMRON HAND on 05/04/20 1349 Metoclopramide HCl (Metoclopramide HCl) 10 Mg Tablet, 10 MG PO QIDACHS, (Reported) Entered as Reported by: CAMRON HAND on 05/04/20 1349 Metolazone (Metolazone) 5 Mg Tablet, 5 MG PO MON,WE,FR, (Reported) Entered as Reported by: BALJINDER MCFADDEN on 11/26/20 1600 Metoprolol Tartrate (Metoprolol Tartrate) 50 Mg Tablet, 75 MG PO BID, (Reported) Entered as Reported by: CAMRON HAND on 08/08/20 1012 Montelukast Sodium (Montelukast Sodium) 10 Mg Tablet, 10 MG PO HS, (Reported) Entered as Reported by: DOMINIQUE WILLIAM on 06/27/19 1144 Multivit-Min/FA/Lycopene/Lut (Certavite Sr-Antioxidant Tab) 1 Each Tablet, 1 EA PO DAILY, (Reported) Entered as Reported by: CAMRON HAND on 11/27/20 1104 Naloxone HCl (Narcan) 4 Mg [place], 1 SPRAY NS UD PRN for UNRESPONSIVE, (Reported) Entered as Reported by: CAMRON HAND on 05/04/20 1349 Omeprazole (Omeprazole) 20 Mg Capsule.dr, 20 MG PO DAILY, (Reported) Entered as Reported by: CAMRON HAND on 05/04/20 1349 Oxycodone HCl (Oxycodone HCl) 5 Mg Tablet, 5 MG PO DAILY PRN for PAIN-SEVERE (8- 10), (Reported) Entered as Reported by: CAMRON HAND on 11/27/20 1104 Prednisone (Prednisone) 20 Mg Tab, 40 MG PO DAILY Prescribed by: LIZET MAS on 06/07/21 1342 Torsemide (Torsemide) 100 Mg Tablet, 100 MG PO 0800,1500, (Reported) Entered as Reported by: BALJINDER MCFADDEN on 11/26/20 1600 [Iron Slow Release] 45 TAB, 45 MG PO DAILY, (Reported) Entered as Reported by: CAMRON HAND on 11/27/20 1104 Review of Systems Review of Systems Constitutional: malaise, weakness EENTM: other (DRY MOUTH) Respiratory: no symptoms reported; No cough Cardiovascular: no symptoms reported Gastrointestinal: No abdominal pain, No diarrhea; loss of appetite, nausea, vomiting Genitourinary: see HPI, frequency Musculoskeletal: no symptoms reported Skin: no symptoms reported Psychiatric/Neurological: No Symptoms Reported Hematologic/Lymphatic: No Symptoms Reported Immunological/Allergic: no symptoms reported (LAURENCE PRADO DO) Past Lvsroce-Kaxhgu-Todvbk Hx Patient Social History Tobacco Use?: Yes Tobacco type used: Cigarettes Smoking Status: Current Everyday Smoker Substance use?: Yes Substance type: Methamphetamine, Marijuana Additional substance use comme: + IV METH, THCH Alcohol Use?: Yes (LAURENCE PRADO DO) Immunizations Up To Date Tetanus Booster (TDap): Unknown (LAURENCE PRADO DO) Seasonal Allergies Seasonal Allergies: Yes (LAURENCE PRADO DO) Past Medical History Surgery/Hospitalization HX: DIALYSIS GRAFT/AV FISTULA IN RIGHT UPPER ARM Surgeries: Yes (URETERAL STENTS) Abdominal, Adenoidectomy, Dialysis, Ear Surgery, Hysterectomy, Renal, Tonsillectomy, Tubal Ligation, Vascular Surgery Respiratory: Yes (INTUBATED 05/16/20 WITH DKA/RESP FAILURE) Asthma, Pneumonia, Chronic Bronchitis, COPD Currently Using CPAP: No Currently Using BIPAP: No Cardiac: Yes (CHF) Deep Vein Thrombosis, High Cholesterol, Hypertension Neurological: Yes Neuropathy Reproductive Disorders: Yes Female Reproductive Disorders: Menstrual Problems [employer] History: Hysterectomy, Menopausal Genitourinary: Yes (DIALYSIS --FRI; URETERAL STENTS FOR KIDNEY STONES) Renal Failure, Dialysis Gastrointestinal: Yes Hepatitis Musculoskeletal: Yes (CHRONIC GENERALIZED PAIN) Arthritis, Rheumatoid Arthritis, Fractures Endocrine: Yes (NON-COMPLIANT; MULTIPLE EPISODES OF DKA) Diabetes, Insulin dep HEENT: Yes (S/P T&A) Tonsilitis, Glaucoma Loss of Vision: Denies Hearing Impairment: Denies Cancer: No Psychosocial: Yes (POLYSUBSTANCE ABUSE) Anxiety, Personality Disorder, Depression Integumentary: No Blood Disorders: No Adverse Reaction/Blood Tranf: No (LAURENCE PRADO DO) Family Medical History FH: thyroid cancer G8 SISTER FHx: macular degeneration 19 MOTHER Glaucoma G8 BROTHER Heart Disease, Cancer, Diabetes SOCIAL HISTORY: -ETOH--REGULAR USE--"COUPLE OF DRINKS" SEVERAL NIGHTS A WEEK -DRUGS--+ METH AND THC USE -SMOKES > 1 PPD PAST SURGICAL HISTORY: -TONSILLECTOMY AND ADENOIDECTOMY -BILATERAL TUBAL LIGATION -HYSTERECTOMY -EXPLORATORY LAPAROSCOPY -URETERAL STENTS FOR KIDNEY STONES/CYSTOSCOPIES -EAR SURGERY -RIGHT UPPER ARM DIALYSIS GRAFT/AV FISTULA (LAURENCE PRADO DO) Physical Exam Vital Signs Vital Signs - First Documented (SOCO ORTEZ MD) Vital Signs Capillary Refill : (LAURENCE PRADO DO) Height, Weight, BMI Height: 5'5.00" Weight: 151lbs. 1.0oz. 68.319257iu; 26.00 BMI Method:Stated General Appearance: Other (LETHARGIC, MOANING, BUT IS AWAKE AND ABLE TO ANSWER ALL QUESTIONS AND FOLLOW COMMANDS. PT IS NOT CONFUSED. SPEECH IS CLEAR. UNKEMPT) HEENT: Other (DRY ORAL MUCOSA. POOR DENTITION) Neck: Normal Inspection Respiratory: Normal Breath Sounds, Other (MILDLY TACHYPNEIC) Cardiovascular: No Edema, No JVD, No Murmur, Normal Peripheral Pulses, Tachycardia Gastrointestinal: Non Tender, Soft Extremity: No Pedal Edema Neurologic/Psychiatric: Alert, Oriented x3 Skin: Warm/Dry, Pallor (LAURENCE PRADO DO) Focused Exam Sepsis Stage: Sepsis Possible Source: Unknown (LAURENCE PRADO DO) Lactate Level 12/01/21 03:30: Lactic Acid Level 10.53*H 12/01/21 09:50: Lactic Acid Level 2.92*H (SOCO ORTEZ MD) Time of Focused Exam: 05:00 Respiratory: Normal Breath Sounds, No Accessory Muscle Use, No Respiratory Distress Cardiovascular: No Edema, Tachycardia Capillary Refill: Less Than 3 Seconds Skin: normal color, warm/dry (LAURENCE PRADO DO) Lactic Acid Level Laboratory Tests Test 12/01/21 03:30 12/01/21 09:50 Lactic Acid Level 10.53 MMOL/L (0.50-2.00) *H 2.92 MMOL/L (0.50-2.00) *H (SOCO ORTEZ MD) Within 3hrs of presentation: Admin fluids, Admin ABX, Blood cultures prior to ABX's, Focus exam, Lactate level (LAURENCE PRADO DO) Procedures/Interventions Date of ETT Placement: May 20, 2020 Time of ETT Placement: 0700 (LAURENCE PRADO DO) Progress/Results/Core Measures Suspected Sepsis SIRS Temperature: Pulse: Respiratory Rate: Laboratory Tests 12/01/21 03:25: White Blood Count 19.6H Blood Pressure / Mean: 12/01/21 03:30: Lactic Acid Level 10.53*H Laboratory Tests 12/01/21 03:25: Creatinine 5.18H, INR Comment 1.4, Platelet Count 309, Total Bilirubin 0.7 (LAURENCE PRADO DO) Results/Orders Lab Results Laboratory Tests Test 12/01/21 03:25 12/01/21 03:30 12/01/21 03:40 12/01/21 04:00 Range/Units White Blood Count 19.6 H 4.3-11.0 10^3/uL Red Blood Count 3.74 L 3.80-5.11 10^6/uL Hemoglobin 12.3 11.5-16.0 g/dL Hematocrit 42 35-52 % Mean Corpuscular Volume 113 H 80-99 fL Mean Corpuscular Hemoglobin 33 25-34 pg Mean Corpuscular Hemoglobin Concent 29 L 32-36 g/dL Red Cell Distribution Width 13.2 10.0-14.5 % Platelet Count 309 130-400 10^3/uL Mean Platelet Volume 11.2 9.0-12.2 fL Immature Granulocyte % (Auto) 2 % Neutrophils (%) (Auto) 83 H 42-75 % Lymphocytes (%) (Auto) 7 L 12-44 % Monocytes (%) (Auto) 8 0-12 % Eosinophils (%) (Auto) 0 0-10 % Basophils (%) (Auto) 1 0-10 % Neutrophils # (Auto) 16.2 H 1.8-7.8 10^3/uL Lymphocytes # (Auto) 1.4 1.0-4.0 10^3/uL Monocytes # (Auto) 1.6 H 0.0-1.0 10^3/uL Eosinophils # (Auto) 0.0 0.0-0.3 10^3/uL Basophils # (Auto) 0.1 0.0-0.1 10^3/uL Immature Granulocyte # (Auto) 0.3 H 0.0-0.1 10^3/uL Neutrophils % (Manual) 85 % Lymphocytes % (Manual) 9 % Monocytes % (Manual) 6 % Macrocytosis MODERATE Erythrocyte Sedimentation Rate 29 0-30 MM/HR Prothrombin Time 17.3 H 12.2-14.7 SEC INR Comment 1.4 0.8-1.4 Activated Partial Thromboplast Time 29 24-35 SEC D-Dimer 0.42 0.00-0.49 UG/ML Sodium Level 118 *L 135-145 MMOL/L Potassium Level 6.2 H 3.6-5.0 MMOL/L Chloride Level 63 L 98-107 MMOL/L Carbon Dioxide Level 7 *L 21-32 MMOL/L Anion Gap 48 H 5-14 MMOL/L Blood Urea Nitrogen 82 H 7-18 MG/DL Creatinine 5.18 H 0.60-1.30 MG/DL Estimat Glomerular Filtration Rate 9 BUN/Creatinine Ratio 16 Glucose Level 1445 *H 70-105 MG/DL Calcium Level 9.4 8.5-10.1 MG/DL Corrected Calcium 9.4 8.5-10.1 MG/DL Magnesium Level 3.5 H 1.6-2.4 MG/DL Total Bilirubin 0.7 0.1-1.0 MG/DL Aspartate Amino Transf (AST/SGOT) 15 5-34 U/L Alanine Aminotransferase (ALT/SGPT) 23 0-55 U/L Alkaline Phosphatase 89 40-136 U/L Total Creatine Kinase 49 29-168 U/L Creatine Kinase MB 2.3 <6.6 NG/ML Myoglobin 161.7 H 10.0-92.0 NG/ML Troponin I 0.031 H <0.028 NG/ML C-Reactive Protein High Sensitivity 0.48 0.00-0.50 MG/DL B-Type Natriuretic Peptide 2236.2 H <100.0 PG/ML Total Protein 7.4 6.4-8.2 GM/DL Albumin 4.0 3.2-4.5 GM/DL Amylase Level 24 L 25-125 U/L Lipase 22 8-78 U/L Procalcitonin 1.88 H <0.10 NG/ML Serum Alcohol < 10 <10 MG/DL Influenza Type A (RT-PCR) Not Detected Not Detecte Influenza Type B (RT-PCR) Not Detected Not Detecte SARS-CoV-2 RNA (RT-PCR) Not Detected Not Detecte Lactic Acid Level 10.53 *H 0.50-2.00 MMOL/L Blood Gas Puncture Site LEFT BRACHIAL Blood Gas Patient Temperature 36.6 Arterial Blood pH 7.24 *L 7.37-7.43 Arterial Blood Partial Pressure CO2 22 L 35-45 MMHG Arterial Blood Partial Pressure O2 84 79-93 MMHG Arterial Blood HCO3 9 *L 23-27 MMOL/L Arterial Blood Total CO2 9.6 *L 21.0-31.0 MMOL/L Arterial Blood Oxygen Saturation 93 L 94-100 % Arterial Blood Base Excess -17.3 L -2.5-2.5 MMOL/L Long Test NA Blood Gas Ventilator Setting NO Blood Gas Inspired Oxygen 2L Urine Color YELLOW Urine Clarity CLEAR Urine pH 6.0 5-9 Urine Specific [place] 1.020 1.016-1.022 Urine Protein 1+ H NEGATIVE Urine Glucose (UA) 3+ H NEGATIVE Urine Ketones TRACE H NEGATIVE Urine Nitrite NEGATIVE NEGATIVE Urine Bilirubin NEGATIVE NEGATIVE Urine Urobilinogen 0.2 < = 1.0 MG/DL Urine Leukocyte Esterase NEGATIVE NEGATIVE Urine RBC (Auto) TRACE-I H NEGATIVE Urine RBC 0-2 /HPF Urine WBC NONE /HPF Urine Squamous Epithelial Cells 0-2 /HPF Urine Crystals NONE /LPF Urine Bacteria TRACE /HPF Urine Casts PRESENT /LPF Urine Hyaline Casts 0-2 H /LPF Urine Mucus NEGATIVE /LPF Urine Culture Indicated NO Urine Opiates Screen NEGATIVE NEGATIVE Urine Oxycodone Screen NEGATIVE NEGATIVE Urine Methadone Screen NEGATIVE NEGATIVE Urine Propoxyphene Screen NEGATIVE NEGATIVE Urine Barbiturates Screen NEGATIVE NEGATIVE Ur Tricyclic Antidepressants Screen NEGATIVE NEGATIVE Urine Phencyclidine Screen NEGATIVE NEGATIVE Urine Amphetamines Screen POSITIVE H NEGATIVE Urine Methamphetamines Screen POSITIVE H NEGATIVE Urine Benzodiazepines Screen NEGATIVE NEGATIVE Urine Cocaine Screen NEGATIVE NEGATIVE Urine Cannabinoids Screen NEGATIVE NEGATIVE Test 12/01/21 06:40 12/01/21 09:50 12/01/21 11:00 Range/Units Sodium Level 124 *L 128 L 135-145 MMOL/L Potassium Level 4.6 3.8 3.6-5.0 MMOL/L Chloride Level 70 L 83 L 98-107 MMOL/L Carbon Dioxide Level 10 L 21 21-32 MMOL/L Anion Gap 44 H 24 H 5-14 MMOL/L Blood Urea Nitrogen 86 H 91 H 7-18 MG/DL Creatinine 5.13 H 5.05 H 0.60-1.30 MG/DL Estimat Glomerular Filtration Rate 9 9 BUN/Creatinine Ratio 17 18 Glucose Level 1302 *H 779 *H 70-105 MG/DL Calcium Level 9.1 8.6 8.5-10.1 MG/DL Lactic Acid Level 2.92 *H 0.50-2.00 MMOL/L Magnesium Level 2.9 H 1.6-2.4 MG/DL (SOCO ORTEZ MD) My Orders Orders - SOCO ORTEZ MD Basic Metabolic Panel (12/01/21 06:51) Ondansetron Injection (Zofran Injectio (12/01/21 08:45) Ondansetron Injection (Zofran Injectio (12/01/21 09:15) Ns Iv 1000 Ml (Sodium Chloride 0.9%) (12/01/21 09:26) Accucheck Stat ONCE (12/01/21 09:27) Accucheck Stat ONCE (12/01/21 09:27) Accucheck Stat ONCE (12/01/21 09:27) Accucheck Stat ONCE (12/01/21 09:27) Basic Metabolic Panel (12/01/21 11:00) Magnesium (12/01/21 11:00) Ns Iv 1000 Ml (Sodium Chloride 0.9%) (12/01/21 10:45) (SOCO ORTEZ MD) Medications Given in ED Current Medications Medications Dose Ordered Sig/Nehemias Route Start Time Stop Time Status Last Admin Dose Admin Calcium Gluconate 4.65 meq ONCE ONCE IV 12/01/21 04:15 12/01/21 04:18 DC 12/01/21 05:28 4.65 MEQ Cefepime HCl 1000 mg/Sodium Chloride 50 ml @ 100 mls/hr ONCE ONCE IV 12/01/21 04:45 12/01/21 05:14 DC 12/01/21 06:20 100 MLS/HR Insulin Human Regular 20 unit ONCE ONCE IV 12/01/21 04:30 12/01/21 04:31 DC 12/01/21 05:30 20 UNIT Ondansetron HCl 4 mg ONCE ONCE IVP 12/01/21 08:45 12/01/21 08:46 DC 12/01/21 09:08 4 MG Sodium Polystyrene Sulfonate 15 gm ONCE ONCE PO 12/01/21 04:15 12/01/21 04:18 DC 12/01/21 05:28 15 GM Sodium Bicarbonate 100 meq ONCE ONCE IV 12/01/21 04:15 12/01/21 04:16 DC 12/01/21 05:28 100 MEQ (SOCO ORTEZ MD) Vital Signs/I&O 12/01/21 12/01/21 03:20 03:20 Temp 36.6 Pulse 124 Resp 18 B/P (MAP) 94/58 (70) Pulse Ox 97 97 O2 Delivery Nasal Cannula Nasal Cannula O2 Flow Rate 2.00 2.00 (SOCO ORTEZ MD) Vital Signs/I&O Capillary Refill : (LAURENCE PRADO DO) Progress Note : Progress Note PLACED IN ISOLATION ROOM PPE WORN AT ALL TIMES COVID AND FLU TESTING DONE ACCUCHECK READS "HIGH" GIVEN IV FLUIDS AND ZOFRAN WITH IMPROVEMENT IN NAUSEA GIVEN ALBUTEROL, KAYEXELATE, CALCIUM GLUCONATE, AND INSULIN FOR HYPERKALEMIA GIVEN BICARB FOR ACIDOSIS STARTED ON INSULIN DRIP GIVEN CEFEPIME AND VANCOMYCIN PER SEPSIS PROTOCOL 0600--CARE TURNED OVER TO DR. ORTEZ. PT UP TO > 100 SYSTOLIC NO HYPOXIA NO DYSPNEA NO FEVER NO DECREASED MENTATION NO VOMITING OR DIARRHEA NO COUGH (LAURENCE PRADO DO) Progress Note : Time: 10:54 Progress Note Care of this patient was assumed from Dr. Prado at shift change. She has continued on insulin drip. We have increased the rate from the 5 units/h to 10 units/h. She has made some minor progress based on 0640 labs. Additional labs are being obtained now. I have contacted [facility] in [place] and they are able to accept this transfer to Dr. Phan's. This is greatly appreciated. Fingerstick blood sugars have remained "high". She received 2 L of IV fluid and now we are running normal saline at 30 mL/h to keep the line open. Sepsis was initially suspected but this seems unlikely now as no source of infection has been identified. Nausea and vomiting is well controlled. Patient is tolerating ice chips. She did not receive a second blood culture due to venous access problems. She received a dose of cefepime. Vancomycin had been ordered but has not been received yet due to vascular access problems. (SOCO ORTEZ MD) ECG Initial ECG Impression Date: Dec 01, 2021 Initial ECG Impression Time: 03:33 Initial ECG Rate: 117 Initial ECG Rhythm: S.Tach Initial ECG Impression: Nonspecific Changes (LAURENCE PRADO DO) Diagnostic Imaging Diagonstic Imaging: Xray Plain Films/CT/US/NM/MRI: chest Comments NAME: LAURENCE PLEITEZ [facility] REC#: [id number] PT STATUS: REG ER : 1965 PHYSICIAN: LAURENCE PRADO DO ADMIT DATE: 12/01/21/ER Signed Date of Exam:12/01/21 CHEST 1 VIEW, AP/PA ONLY PATIENT HISTORY: N/V. TECHNIQUE: Single frontal view of the chest. COMPARISON: 04/03/2021 FINDINGS: The lung volumes are normal. No focal consolidation is seen. No large pleural effusion or pneumothorax is seen. The cardiomediastinal silhouette is normal in size and contour. No acute osseous abnormality is seen. The right-sided dual-lumen catheter has been removed. IMPRESSION: No acute pulmonary abnormality seen. Dictated by: Dictated on workstation # [id number] Dict: 12/01/2115 Trans: 12/01/21 0919 CVB [id number] Interpreted by: PERLA PIERRE MD Electronically signed by: PERLA PIERRE MD 12/01/21 0919 (SOCO ORTEZ MD) Departure Communication (Admissions) 0353--CALLED [facility], ON COMPLETE DIVERSION/NO BEDS AVAILABLE AT THIS TIME. ADVISED TO CALL BACK LATER THIS MORNING 0354--CALLED [facility], NO BEDS AT [facility]. ADVISED TO CALL BACK LATER THIS MORNING. 0425--CALLED [facility] IN [place], NO BEDS AVAILABLE. 0427--CALLED , NO ICU BEDS, BUT IF PT HAS SOME IMPROVEMENT IN LAB (ESPECIALLY LACTIC ACID AND SODIUM LEVELS) , MAY CALL BACK AFTER 0800, AND POSSIBLY ADMIT TO MEDICAL FLOOR IF HER SHE IS IMPROVED, THEY CAN MAINTAIN INSULIN DRIP ON MEDICAL FLOOR AT THEIR FACILITY. (LAURENCE PRADO DO) Impression Primary Impression: DKA (diabetic ketoacidosis) Qualified Codes: E10.10 - Type 1 diabetes mellitus with ketoacidosis without coma Additional Impressions: End stage renal disease on dialysis Nausea and vomiting Qualified Codes: R11.2 - Nausea with vomiting, unspecified Electrolyte imbalance Hyperkalemia Hyponatremia Lactic acidosis Methamphetamine use Disposition: XFER SHT-TRM HOSP Condition: Improved Transfer Transfer Reason: Exceeds level of care Time Spoke to Accepting Phy: 10:40 Transfer Progress Notes Transfer accepted by Dr. Walsh at [facility] in [place] Transfer Time: 11:47 Transfer Facility: [facility] Method of Transfer: EMS (SOCO ORTEZ MD) Departure-Patient Inst. Referrals: ELIECER COLON DO (PCP/Family) Primary Care Physician LAURENCE PRADO DO Dec 01, 2021 04:00 SOCO ORTEZ MD Dec 01, 2021 10:58
[2021-12-01 04:01] LABS: CALCIUM 9.4 MG/DL (8.5-10.1)
[2021-12-01 04:02] LABS: AMYLASE 24 U/L (25-125)
[2021-12-01 04:03] LABS: TOTAL PROTEIN 7.4 GM/DL (6.4-8.2)
[2021-12-01 04:04] LABS: BILIRUBIN,TOTAL 0.7 MG/DL (0.1-1.0)
[2021-12-01 04:06] LABS: ALKALINE PHOSPHATASE 89 U/L (40-136)
[2021-12-01 04:07] LABS: CREATININE SERUM 5.18 MG/DL (0.60-1.30); GFR ESTIMATED 9
[2021-12-01 04:08] LABS: BUN/CREATININE RATIO 16
[2021-12-01 04:09] LABS: ALANINE AMINOTRANSFERASE 23 U/L (0-55); MAGNESIUM 3.5 MG/DL (1.6-2.4)
[2021-12-01 04:10] LABS: LIPASE 22 U/L (8-78)
[2021-12-01 04:11] LABS: CARBON DIOXIDE 7 MMOL/L (21-32); CREATINE KINASE 49 U/L (29-168); SODIUM 118 MMOL/L (135-145)
[2021-12-01 04:14] LABS: BILIRUBIN,URINE NEGATIVE (NEGATIVE); CLARITY,URINE CLEAR; COLOR,URINE YELLOW; GLUCOSE, URINE (UA) 3+ (NEGATIVE); KETONES,URINE TRACE (NEGATIVE); LEUKOCYTE ESTERASE ,URINE NEGATIVE (NEGATIVE); NITRITE,URINE NEGATIVE (NEGATIVE); PROTEIN,URINE 1+ (NEGATIVE)
[2021-12-01] MEDS ORDERED: RT-ALBUTEROL SULF 2.5 MG/3 ML PRE-MIX VIAL INH STA (04:14)
[2021-12-01] MEDS ORDERED: NS IV 1000 ML 1,000 ML IV SCH ×2 (04:15→10:45)
[2021-12-01] MEDS ORDERED: SODIUM BICARB 8.4% 50 MEQ/50 ML (ABBOTT) SYR IV ONE (04:15)
[2021-12-01] MEDS ORDERED: SOD POLYSTERENE 15 GM/60 ML (KAYEXALATE) UNIT DOSE PO ONE (04:15)
[2021-12-01] MEDS ORDERED: CALCIUM GLUC. 10% 4.65 MEQ/10 ML VIAL IV ONE (04:15)
[2021-12-01 04:17] LABS: ERYTHROCYTE SEDIMENTATION RATE 29 MM/HR (0-30)
[2021-12-01 04:18] LABS: CREATINE KINASE MB 2.3 NG/ML (<6.6)
[2021-12-01 04:26] LABS: ABG BASE EXCESS -17.3 MMOL/L (-2.5-2.5); ABG OXYGEN SATURATION 93 % (94-100); ABG PCO2 22 MMHG (35-45); ABG PO2 84 MMHG (79-93); INSPIRED O2 2L; VENTILATOR NO
[2021-12-01 04:27] LABS: ABG PH 7.24 (7.37-7.43); ABG TCO2 9.6 MMOL/L (21.0-31.0); PATIENT TEMP 36.6
[2021-12-01] MEDS ORDERED: inSUlin (REGULAR) HUMAN 1 UNIT/0.01 ML (CHARGE PER UNIT) IV ONE (04:30)
[2021-12-01 04:34] LABS: AMPHETAMINE SCREEN, URINE POSITIVE (NEGATIVE); BARBITURATE SCREEN URINE NEGATIVE (NEGATIVE); BENZODIAZEPINES SCREEN URINE NEGATIVE (NEGATIVE); CANNABINOID SCREEN, URINE NEGATIVE (NEGATIVE); COCAINE SCREEN URINE NEGATIVE (NEGATIVE); METHADONE STAT NEGATIVE (NEGATIVE); METHAMPHETAMINE SCREEN URINE S POSITIVE (NEGATIVE); OPIATE SCREEN URINE NEGATIVE (NEGATIVE); OXYCODONE STAT NEGATIVE (NEGATIVE); PROPOXYPHENE STAT NEGATIVE (NEGATIVE); TRICYCLIC ANTIDEPRESSANTS SCRE NEGATIVE (NEGATIVE)
[2021-12-01 04:41] LABS: FIBRIN DEGRADATION PRODUCTS 0.42 UG/ML (0.00-0.49); INR 1.4 (0.8-1.4); PROTHROMBIN TIME PATIENT 17.3 SEC (12.2-14.7)
[2021-12-01] MEDS ORDERED: CEFEPIME INJECTION 1,000 MG in NS (IVPB) 50 ML IV ONE (04:45)
[2021-12-01] MEDS ORDERED: VANCOMYCIN INJECTION 1,000 MG in NS (IVPB) 250 ML IV ONE (04:45)
[2021-12-01 04:46] LABS: BACTERIA,URINE TRACE /HPF; HYALINE CASTS, URINE 0-2 /LPF; RBC,URINE 0-2 /HPF; SQUAMOUS EPITHELIAL CELL,UR 0-2 /HPF
[2021-12-01 05:31] LABS: LYMPHOCYTES % (MANUAL) 9 %; MONOCYTES % (MANUAL) 6 %; NEUTROPHILS % (MANUAL) 85 %
[2021-12-01 05:34] LABS: GLUCOSE 1445 MG/DL (70-105)
[2021-12-01 07:16] LABS: POTASSIUM 4.6 MMOL/L (3.6-5.0)
[2021-12-01 07:17] LABS: CALCIUM 9.1 MG/DL (8.5-10.1)
--- NOTE | 2021-12-01 07:17 | Diagnostic Imaging Report ---
PATIENT HISTORY: N/V. TECHNIQUE: Single frontal view of the chest. COMPARISON: 04/03/2021 FINDINGS: The lung volumes are normal. No focal consolidation is seen. No large pleural effusion or pneumothorax is seen. The cardiomediastinal silhouette is normal in size and contour. No acute osseous abnormality is seen. The right-sided dual-lumen catheter has been removed. IMPRESSION: No acute pulmonary abnormality seen. Dictated by: Dictated on workstation # [id number]
[2021-12-01 07:22] LABS: CREATININE SERUM 5.13 MG/DL (0.60-1.30)
[2021-12-01] MEDS ORDERED: NS IV 1000 ML 1,000 ML ONE (09:26)
[2021-12-01 11:18] LABS: POTASSIUM 3.8 MMOL/L (3.6-5.0)
[2021-12-01 11:19] LABS: CALCIUM 8.6 MG/DL (8.5-10.1)
[2021-12-01 11:24] LABS: CREATININE SERUM 5.05 MG/DL (0.60-1.30)
[2021-12-01 11:26] LABS: MAGNESIUM 2.9 MG/DL (1.6-2.4)
[2021-12-01 11:42] VITALS: BP 129/70
== END 2021-12-01 11:47 | disposition short-term general hospital (02) ==
LOC: EDUNIT# 03:18 → ER 03:20
DX: E10.10 Type 1 diabetes mellitus with ketoacidosis without coma (principal); E10.22 Type 1 diabetes mellitus with diabetic chronic kidney disease; I12.0 Hypertensive chronic kidney disease with stage 5 chronic kidney disease or end stage renal disease; N18.6 End stage renal disease; E87.5 Hyperkalemia; E87.1 Hypo-osmolality and hyponatremia; F15.90 Other stimulant use, unspecified, uncomplicated; J44.9 Chronic obstructive pulmonary disease, unspecified; E78.00 Pure hypercholesterolemia, unspecified; F41.9 Anxiety disorder, unspecified; F32.A Depression, unspecified; F60.9 Personality disorder, unspecified; E10.40 Type 1 diabetes mellitus with diabetic neuropathy, unspecified; F17.210 Nicotine dependence, cigarettes, uncomplicated; F10.10 Alcohol abuse, uncomplicated; Z99.2 Dependence on renal dialysis; Z79.4 Long term (current) use of insulin; Z91.19 Patient's noncompliance with other medical treatment and regimen; Z79.899 Other long term (current) drug therapy; Z20.822 Contact with and (suspected) exposure to COVID-19
CPT/HCPCS: 36415; 71045; 80048; 80053; 80306; 80320; 81000; 82150; 82550; 82553; 82805; 82947; 83605; 83690; 83735; 83874; 83880; 84145; 84484; 85007; 85027; 85379; 85610; 85652; 85730; 86141; 87040; 87636; 93005; 93041; 96361; 96365; 96366; 96375; 96376

== ENCOUNTER 2022-02-24 12:40 | Emergency (ER) | payer MEDICAID ==
[~2022-02-24] VITALS: Ht 162.6 cm; Wt 72.6 kg
[~2022-02-24 12:40] MED LIST changes: +FLUC100T10 PO; -FLUC100T6 PO
[2022-02-24] MEDS ORDERED: MIDAZOLAM 5 MG/5 ML (VERSED) VIAL IJ ONE (12:46)
[2022-02-24] MEDS ORDERED: NS IV 1000 ML 1,000 ML IV STA ×2 (12:46→14:39)
[2022-02-24] MEDS ORDERED: ETOMIDATE IV SOLN 20 MG/10 ML VIAL IV ONE (12:46)
[2022-02-24] MEDS ORDERED: fentaNYL INJ 100 MCG/2 ML AMP IV ONE (12:46)
[2022-02-24] MEDS ORDERED: ROCURONIUM 10 MG/ML 5 ML SYRINGE IV ONE ×2 (12:46→16:15)
[2022-02-24] MEDS ORDERED: LACTATED RINGERS 1,000 ML IV STA ×2 (12:46→14:39)
[2022-02-24] MEDS ORDERED: LORazepam INJ 2 MG/ML (ATIVAN) VIAL ONE (12:52)
[2022-02-24] MEDS ORDERED: LORazepam INJ 2 MG/ML (ATIVAN) VIAL IVP ONE (13:00)
[2022-02-24 13:04] LABS: BASOPHILS # (AUTO) 0.2 10^3/uL (0.0-0.1); BASOPHILS % (AUTO) 1 % (0-10); BILIRUBIN,URINE NEGATIVE (NEGATIVE); CLARITY,URINE CLEAR; COLOR,URINE YELLOW; EOSINOPHILS % (AUTO) 0 % (0-10); GLUCOSE, URINE (UA) 3+ (NEGATIVE); HEMATOCRIT 48 % (35-52); HEMOGLOBIN 13.6 g/dL (11.5-16.0); KETONES,URINE 2+ (NEGATIVE); LEUKOCYTE ESTERASE ,URINE NEGATIVE (NEGATIVE); LYMPHOCYTES # (AUTO) 3.5 10^3/uL (1.0-4.0); LYMPHOCYTES % (AUTO) 13 % (12-44); MEAN CORPUSCULAR HEMOGLOBIN 34 pg (25-34); MEAN CORPUSCULAR HGB CONC 29 g/dL (32-36); MEAN CORPUSCULAR VOLUME 118 fL (80-99); MONOCYTES # (AUTO) 1.6 10^3/uL (0.0-1.0); MONOCYTES % (AUTO) 6 % (0-12); NEUTROPHILS % (AUTO) 78 % (42-75); NITRITE,URINE NEGATIVE (NEGATIVE); PH,URINE 5.5 (5-9); PLATELET COUNT 345 10^3/uL (130-400); PROTEIN,URINE TRACE (NEGATIVE); WHITE BLOOD COUNT 26.9 10^3/uL (4.3-11.0)
[2022-02-24] MEDS ORDERED: NOREPINEPHRINE 8 MG/250 ML 250 ML IV ONE (13:08)
[2022-02-24 13:11] LABS: ALBUMIN 4.2 GM/DL (3.2-4.5)
[2022-02-24 13:12] LABS: BACTERIA,URINE TRACE /HPF; CHLORIDE 69 MMOL/L (98-107); POTASSIUM 5.6 MMOL/L (3.6-5.0); RBC,URINE RARE /HPF; SQUAMOUS EPITHELIAL CELL,UR RARE /HPF
--- NOTE | 2022-02-24 13:12 | ED General ---
General Stated Complaint: AMS Source of Information: Patient Exam Limitations: Physical Impairments History of Present Illness Date Seen by Provider: Feb 24, 2022 Time Seen by Provider: 12:42 Initial Comments Here with caregiver who reports that she has had altered mental status this morning. Last noted well last night. Patient is trying to talk but is mumbling and seems to be saying DKA. Patient does have history of DKA as well as end- stage renal disease on dialysis 3 times per week. She has been seen multiple times here for this before with transfer to another facility due to renal disease and dialysis needs. Patient otherwise unable to provide details and caregivers do not have much further detail at this time. Timing/Duration: 12 Hours Severity: Severe Associated Systoms: No Fever/Chills; Shortness of Air, Weakness Allergies and Home Medications Allergies Coded Allergies: morphine (Verified Allergy, Mild, Vomiting, 05/20/20) orange juice (Verified Allergy, Mild, Nausea, 05/24/20) Sulfa (Sulfonamide Antibiotics) (Unverified Allergy, Unknown, 05/11/15) codeine (Verified Allergy, Unknown, TAKES ULTRAM AT HOME, 11/18/08) ketorolac (Verified Allergy, Unknown, 10/05/08) tramadol (Verified Allergy, Unknown, 11/02/11) Patient Home Medication List Home Medication List Reviewed: Yes Albuterol Sulfate (Proair Hfa) 1 Puff Puff, 2 PUFF IH TID PRN for SHORTNESS OF BREATH, (Reported) Entered as Reported by: ISABELLA DAMIAN on 06/28/19 0913 Aspirin (Aspirin) 81 Mg Tab.chew, 81 MG PO DAILY, (Reported) Entered as Reported by: CAMRON HAND on 08/08/20 1012 Cephalexin (Cephalexin) 500 Mg Tablet, 500 MG PO TID Prescribed by: LIZET MAS on 06/07/21 1342 Diclofenac Sodium (Diclofenac Sodium) 100 Gm Gel..gram., 1 APPLIC TOP QID PRN for CRAMPS, (Reported) Entered as Reported by: CAMRON HAND on 05/04/20 1349 Ergocalciferol (Vitamin D2) (Vitamin D2) 1,250 Mcg Capsule, 1,250 MCG PO THUR, (Reported) Entered as Reported by: CAMRON HAND on 11/27/20 1104 Fluticasone Propionate (Flonase Allergy Relief) 9.9 Ml Lincoln.susp, 2 SPRAY NSEACH DAILY, (Reported) Entered as Reported by: CAMRON HAND on 05/04/20 1349 Furosemide (Furosemide) 80 Mg Tablet, 80 MG PO BID, (Reported) Entered as Reported by: CAMRON HAND on 11/27/20 1104 Gabapentin (Neurontin) 300 Mg Capsule, 600 MG PO Q8H, (Reported) Entered as Reported by: CAMRON HAND on 08/08/20 1012 Insulin Determir (Levemir) 1,000 Units/10 Ml Soln, 15 UNITS SQ HS Prescribed by: TRUDI SERRANO on 11/28/20 1229 Insulin Lispro (Humalog Kwikpen) 100 Unit/1 Ml Insuln.pen, 5-15 UNITS SQ AC, (Reported) Entered as Reported by: CAMRON HAND on 12/27/19 1551 Isosorbide Mononitrate (Isosorbide Mononitrate ER) 30 Mg Tab.er.24h, 30 MG PO DAILY, (Reported) Entered as Reported by: CAMRON HAND on 11/27/20 1104 Lorazepam (Ativan) 1 Mg Tablet, 1 MG PO TID PRN for ANXIETY, (Reported) Entered as Reported by: CAMRON HAND on 11/27/20 1104 Magnesium Oxide (Magnesium Oxide) 400 Mg Tablet, 400 MG PO BID, (Reported) Entered as Reported by: CAMRON HAND on 11/27/20 1104 Melatonin (Melatonin) 10 Mg Tablet, 10 MG PO HS, (Reported) Entered as Reported by: CAMRON HAND on 05/04/20 1349 Metoclopramide HCl (Metoclopramide HCl) 10 Mg Tablet, 10 MG PO QIDACHS, (Reported) Entered as Reported by: CAMRON HAND on 05/04/20 1349 Metolazone (Metolazone) 5 Mg Tablet, 5 MG PO BOB,WE,FR, (Reported) Entered as Reported by: BALJINDER MCFADDEN on 11/26/20 1600 Metoprolol Tartrate (Metoprolol Tartrate) 50 Mg Tablet, 75 MG PO BID, (Reported) Entered as Reported by: CAMRON HAND on 08/08/20 1012 Montelukast Sodium (Montelukast Sodium) 10 Mg Tablet, 10 MG PO HS, (Reported) Entered as Reported by: DOMINIQUE WILLIAM on 06/27/19 1144 Multivit-Min/FA/Lycopene/Lut (Certavite Sr-Antioxidant Tab) 1 Each Tablet, 1 EA PO DAILY, (Reported) Entered as Reported by: CAMRON HAND on 11/27/20 1104 Naloxone HCl (Narcan) 4 Mg Lincoln, 1 SPRAY NS UD PRN for UNRESPONSIVE, (Reported) Entered as Reported by: CAMRON HAND on 05/04/20 1349 Omeprazole (Omeprazole) 20 Mg Capsule.dr, 20 MG PO DAILY, (Reported) Entered as Reported by: CAMRON HAND on 05/04/20 1349 Oxycodone HCl (Oxycodone HCl) 5 Mg Tablet, 5 MG PO DAILY PRN for PAIN-SEVERE (8- 10), (Reported) Entered as Reported by: CAMRON HAND on 11/27/20 1104 Prednisone (Prednisone) 20 Mg Tab, 40 MG PO DAILY Prescribed by: LIZET MAS on 06/07/21 1342 Torsemide (Torsemide) 100 Mg Tablet, 100 MG PO 0800,1500, (Reported) Entered as Reported by: BALJINDER MCFADDEN on 11/26/20 1600 [Iron Slow Release] 45 TAB, 45 MG PO DAILY, (Reported) Entered as Reported by: CAMRON HAND on 11/27/20 1104 Review of Systems Review of Systems Constitutional: see HPI; No fever Respiratory: short of breath Psychiatric/Neurological: See HPI, Anxiety, Weakness Unable to complete review of systems due to altered mental status. Past Hlnrecc-Ervcwf-Cjeykj Hx Patient Social History Tobacco Use?: Yes Tobacco type used: Cigarettes Substance use?: Yes Substance type: Methamphetamine Alcohol Use?: Yes Alcohol Frequency: Once in a while Immunizations Up To Date Tetanus Booster (TDap): Unknown Seasonal Allergies Seasonal Allergies: Yes Past Medical History Surgery/Hospitalization HX: DIALYSIS GRAFT/AV FISTULA IN RIGHT UPPER ARM Surgeries: Yes (URETERAL STENTS) Abdominal, Adenoidectomy, Dialysis, Ear Surgery, Hysterectomy, Renal, Tonsillectomy, Tubal Ligation, Vascular Surgery Respiratory: Yes (INTUBATED 05/16/20 WITH DKA/RESP FAILURE) Asthma, Pneumonia, Chronic Bronchitis, COPD Currently Using CPAP: No Currently Using BIPAP: No Cardiac: Yes (CHF) Deep Vein Thrombosis, High Cholesterol, Hypertension Neurological: Yes Neuropathy Reproductive Disorders: Yes Female Reproductive Disorders: Menstrual Problems 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: Hysterectomy, Menopausal Genitourinary: Yes (DIALYSIS ; URETERAL STENTS FOR KIDNEY STONES) Renal Failure, Dialysis Gastrointestinal: Yes Hepatitis Musculoskeletal: Yes (CHRONIC GENERALIZED PAIN) Arthritis, Rheumatoid Arthritis, Fractures Endocrine: Yes (NON-COMPLIANT; MULTIPLE EPISODES OF DKA) Diabetes, Insulin dep HEENT: Yes (S/P T&A) Tonsilitis, Glaucoma Loss of Vision: Denies Hearing Impairment: Denies Cancer: No Psychosocial: Yes (POLYSUBSTANCE ABUSE) Anxiety, Personality Disorder, Depression Integumentary: No Blood Disorders: No Adverse Reaction/Blood Tranf: No Family Medical History FH: thyroid cancer G8 SISTER FHx: macular degeneration 19 MOTHER Glaucoma G8 BROTHER Heart Disease, Cancer, Diabetes SOCIAL HISTORY: -ETOH--REGULAR USE--"COUPLE OF DRINKS" SEVERAL NIGHTS A WEEK -DRUGS--+ METH AND THC USE -SMOKES > 1 PPD PAST SURGICAL HISTORY: -TONSILLECTOMY AND ADENOIDECTOMY -BILATERAL TUBAL LIGATION -HYSTERECTOMY -EXPLORATORY LAPAROSCOPY -URETERAL STENTS FOR KIDNEY STONES/CYSTOSCOPIES -EAR SURGERY -RIGHT UPPER ARM DIALYSIS GRAFT/AV FISTULA Physical Exam Vital Signs Vital Signs - First Documented 02/24/22 02/24/22 02/24/22 12:40 13:25 17:34 Temp 36.1 Pulse 120 Resp 28 B/P (MAP) 126/91 (103) Pulse Ox 100 O2 Delivery Room Air O2 Flow Rate 50.00 FiO2 100 Capillary Refill : Height, Weight, BMI Height: 5'5.00" Weight: 151lbs. 1.0oz. 68.709960yl; 26.00 BMI Method:Stated General Appearance: Anxious, Moderate Distress, Other (Patient flailing about in the bed. Mumbling incoherently. Does not answer questions well or follow commands.) HEENT: PERRL/EOMI, Other (Mucous membranes very dry) Neck: Non Tender, Supple Respiratory: Lungs Clear, Normal Breath Sounds Cardiovascular: No Murmur, Tachycardia Gastrointestinal: Non Tender, Soft Back: Normal Inspection, No CVA Tenderness, No Vertebral Tenderness Extremity: Normal Range of Motion, Non Tender, No Pedal Edema Neurologic/Psychiatric: Other (Moves all extremities. Mumbling incoherently. Does not appear to have focal weakness.) Skin: Normal Color, Warm/Dry Focused Exam Lactate Level 02/24/22 12:50: Lactic Acid Level 14.07*H 02/24/22 16:25: Lactic Acid Level 7.76*H Lactic Acid Level Laboratory Tests Test 02/24/22 12:50 02/24/22 16:25 Lactic Acid Level 14.07 MMOL/L (0.50-2.00) *H 7.76 MMOL/L (0.50-2.00) *H Procedures/Interventions Lumen: triple Central Line Procedure: betadine prep Position: internal jugular (R) Complications: none Post Position: sutured, good blood return, position confirmed w/ CXR Placed via ultrasound guidance x1 stick without complications. Sutured in place. Good flush and return. Confirmed with x-ray. No pneumothorax. Tolerated procedure well with no complications. Date of ETT Placement: Feb 24, 2022 Time of ETT Placement: 13:21 Tube Size: 7.5 Medications: Etomidate, Rocuronium Positive End Tide CO2: Yes Breath Sounds after Intubation: bilateral-equal Intubation Complications: no complications Post Intubation Xray: Yes Tube in good position Placed via Estevan videoscope x2 attempts. Initial attempt at esophageal which was noted at time of placement. Tube withdrawn and preoxygenated. Replaced easily. End-tidal CO2 noted on monitor at 23 with O2 saturation 100% via bagging. Confirmed via chest x-ray. Progress/Results/Core Measures Suspected Sepsis SIRS Temperature: Pulse: Respiratory Rate: Laboratory Tests 02/24/22 12:50: White Blood Count 26.9H Blood Pressure / Mean: 02/24/22 12:50: Lactic Acid Level 14.07*H 02/24/22 16:25: Lactic Acid Level 7.76*H Laboratory Tests 02/24/22 12:50: Creatinine 4.94H, INR Comment 1.2, Platelet Count 345, Total Bilirubin 0.5 02/24/22 15:33: Creatinine 4.48#H Results/Orders Lab Results Laboratory Tests Test 02/24/22 12:50 02/24/22 13:11 02/24/22 13:50 02/24/22 15:33 Range/Units White Blood Count 26.9 H 4.3-11.0 10^3/uL Red Blood Count 4.04 3.80-5.11 10^6/uL Hemoglobin 13.6 11.5-16.0 g/dL Hematocrit 48 35-52 % Mean Corpuscular Volume 118 H 80-99 fL Mean Corpuscular Hemoglobin 34 25-34 pg Mean Corpuscular Hemoglobin Concent 29 L 32-36 g/dL Red Cell Distribution Width 13.0 10.0-14.5 % Platelet Count 345 130-400 10^3/uL Mean Platelet Volume 11.0 9.0-12.2 fL Immature Granulocyte % (Auto) 2 % Neutrophils (%) (Auto) 78 H 42-75 % Lymphocytes (%) (Auto) 13 12-44 % Monocytes (%) (Auto) 6 0-12 % Eosinophils (%) (Auto) 0 0-10 % Basophils (%) (Auto) 1 0-10 % Neutrophils # (Auto) 21.0 H 1.8-7.8 10^3/uL Lymphocytes # (Auto) 3.5 1.0-4.0 10^3/uL Monocytes # (Auto) 1.6 H 0.0-1.0 10^3/uL Eosinophils # (Auto) 0.0 0.0-0.3 10^3/uL Basophils # (Auto) 0.2 H 0.0-0.1 10^3/uL Immature Granulocyte # (Auto) 0.6 H 0.0-0.1 10^3/uL Neutrophils % (Manual) 81 % Lymphocytes % (Manual) 9 % Monocytes % (Manual) 6 % Eosinophils % (Manual) 0 % Basophils % (Manual) 0 % Band Neutrophils 4 % Macrocytosis MODERATE Prothrombin Time 15.6 H 12.2-14.7 SEC INR Comment 1.2 0.8-1.4 Activated Partial Thromboplast Time 29 24-35 SEC Urine Color YELLOW Urine Clarity CLEAR Urine pH 5.5 5-9 Urine Specific Starlight 1.015 L 1.016-1.022 Urine Protein TRACE H NEGATIVE Urine Glucose (UA) 3+ H NEGATIVE Urine Ketones 2+ H NEGATIVE Urine Nitrite NEGATIVE NEGATIVE Urine Bilirubin NEGATIVE NEGATIVE Urine Urobilinogen 0.2 < = 1.0 MG/DL Urine Leukocyte Esterase NEGATIVE NEGATIVE Urine RBC (Auto) TRACE-I H NEGATIVE Urine RBC RARE /HPF Urine WBC 2-5 /HPF Urine Squamous Epithelial Cells RARE /HPF Urine Crystals NONE /LPF Urine Bacteria TRACE /HPF Urine Casts NONE /LPF Urine Mucus NEGATIVE /LPF Urine Culture Indicated CULTURE PENDING Sodium Level 125 *L 128 L 135-145 MMOL/L Potassium Level 5.6 H 5.3 H 3.6-5.0 MMOL/L Chloride Level 69 L 81 L 98-107 MMOL/L Carbon Dioxide Level < 5 *L 7 *L 21-32 MMOL/L Anion Gap 51 H 40 H 5-14 MMOL/L Blood Urea Nitrogen 65 H 63 H 7-18 MG/DL Creatinine 4.94 H 4.48 #H 0.60-1.30 MG/DL Estimat Glomerular Filtration Rate 10 11 BUN/Creatinine Ratio 13 14 Glucose Level 1540 *H 1130 *H 70-105 MG/DL Lactic Acid Level 14.07 *H 0.50-2.00 MMOL/L Calcium Level 9.4 8.0 L 8.5-10.1 MG/DL Corrected Calcium 9.2 8.5-10.1 MG/DL Total Bilirubin 0.5 0.1-1.0 MG/DL Aspartate Amino Transf (AST/SGOT) 16 5-34 U/L Alanine Aminotransferase (ALT/SGPT) 18 0-55 U/L Alkaline Phosphatase 97 40-136 U/L Total Protein 7.6 6.4-8.2 GM/DL Albumin 4.2 3.2-4.5 GM/DL Urine Opiates Screen NEGATIVE NEGATIVE Urine Oxycodone Screen NEGATIVE NEGATIVE Urine Methadone Screen NEGATIVE NEGATIVE Urine Propoxyphene Screen NEGATIVE NEGATIVE Urine Barbiturates Screen NEGATIVE NEGATIVE Ur Tricyclic Antidepressants Screen NEGATIVE NEGATIVE Urine Phencyclidine Screen NEGATIVE NEGATIVE Urine Amphetamines Screen POSITIVE H NEGATIVE Urine Methamphetamines Screen POSITIVE H NEGATIVE Urine Benzodiazepines Screen NEGATIVE NEGATIVE Urine Cocaine Screen NEGATIVE NEGATIVE Urine Cannabinoids Screen NEGATIVE NEGATIVE SARS-CoV-2 RNA (RT-PCR) Negative Negative Blood Gas Puncture Site L BRACH Blood Gas Patient Temperature 36.1 Arterial Blood pH 6.83 *L 7.37-7.43 Arterial Blood Partial Pressure CO2 47 H 35-45 MMHG Arterial Blood Partial Pressure O2 440 H 79-93 MMHG Arterial Blood HCO3 8 *L 23-27 MMOL/L Arterial Blood Total CO2 9.0 *L 21.0-31.0 MMOL/L Arterial Blood Oxygen Saturation 99 94-100 % Arterial Blood Base Excess -23.5 L -2.5-2.5 MMOL/L Long Test NA Blood Gas Ventilator Setting YES Blood Gas Inspired Oxygen 100% Test 02/24/22 16:25 02/24/22 16:51 Range/Units Lactic Acid Level 7.76 *H 0.50-2.00 MMOL/L Influenza Type A Antigen NEGATIVE NEGATIVE Influenza Type B Antigen NEGATIVE NEGATIVE My Orders Orders - SUZETTE HEATH MD Iv 1000 Ml (Sodium Chloride 0.9%) (02/24/22 12:46) Lactated Ringers (Lr 1000 Ml Iv Solution (02/24/22 12:46) Accucheck Stat ONCE (02/24/22 12:46) Cbc With Automated Diff (02/24/22 12:46) Comprehensive Metabolic Panel (02/24/22 12:46) Blood Culture (02/24/22 12:46) Sputum Culture (02/24/22 12:46) Urinalysis (02/24/22 12:46) Urine Culture (02/24/22 12:46) Protime With Inr (02/24/22 12:46) Partial Thromboplastin Time (02/24/22 12:46) Chest 1 View, Ap/Pa Only (02/24/22 12:46) Ed Iv/Invasive Line Start (02/24/22 12:46) Ed Iv/Invasive Line Start (02/24/22 12:46) Vital Signs Adult Sepsis Patie Q15M (02/24/22 12:46) O2 (02/24/22 12:46) Remove Rings In Anticipation O (02/24/22 12:46) Lactic Acid Analyzer (02/24/22 12:46) Catheter(Urinary) Insert & Ass 03,15 (02/24/22 12:46) Lorazepam Injection (Ativan Injection) (02/24/22 13:00) Lorazepam Injection (Ativan Injection) (02/24/22 12:52) Manual Differential (02/24/22 12:50) Norepinephrine 8 Mg/250 Ml (Norepinephri (02/24/22 13:08) Norepinephrine 8 Mg/250 Ml (Norepinephri (02/24/22 13:15) Drug Screen Stat (Urine) (02/24/22 13:12) Insulin (Regular) Human (Novolin R (Per (02/24/22 13:45) Insulin Regular Drip (Myxredlin 100 Unit (02/24/22 13:45) Arterial Blood Gas (02/24/22 13:53) Insulin (Regular) Human (Novolin R (Per (02/24/22 13:50) Insulin Regular Drip (Myxredlin 100 Unit (02/24/22 13:50) Covid 19 Inhouse Test (02/24/22 14:15) Ventilator Settings Order (02/24/22 13:25) Propofol Drip (Icu) (Diprivan Drip (Icu) (02/24/22 14:45) Ns Iv 1000 Ml (Sodium Chloride 0.9%) (02/24/22 14:39) Lactated Ringers (Lr 1000 Ml Iv Solution (02/24/22 14:39) Sodium Bicarbonate 8.4% Syr (Sodium Bica (02/24/22 14:45) Arterial Blood Draw - Obtain (02/24/22 ) Basic Metabolic Panel (02/24/22 15:05) Sodium Bicarbonate 8.4% Vial (Sodium Bic (02/24/22 15:21) Midazolam Injection (Versed Injection) (02/24/22 16:00) Midazolam Injection (Versed Injection) (02/24/22 15:49) Rocuronium 5 Ml Syringe (Rocuronium 5 Ml (02/24/22 16:15) Coronavirus Sars-Cov-2 So 2018 (02/24/22 16:48) Influenza A & B Antigens (02/24/22 16:51) Fentanyl Inj (Sublimaze Injection) (02/24/22 17:10) Midazolam Injection (Versed Injection) (02/24/22 17:15) Propofol Drip (Icu) (Diprivan Drip (Icu) (02/24/22 17:30) Medications Given in ED Current Medications Medications Dose Ordered Sig/Nehemias Route Start Time Stop Time Status Last Admin Dose Admin Insulin Human Regular 7 unit ONCE ONCE IV 02/24/22 13:45 02/24/22 13:54 DC 02/24/22 14:00 7 UNIT Lorazepam 1 mg ONCE ONCE IVP 02/24/22 13:00 02/24/22 13:01 DC 02/24/22 12:52 1 MG Midazolam HCl 5 mg ONCE ONCE IVP 02/24/22 16:00 02/24/22 16:01 DC 02/24/22 15:50 5 MG Midazolam HCl 5 mg ONCE ONCE IVP 02/24/22 17:15 02/24/22 17:16 DC 02/24/22 17:16 5 MG Rocuronium [place] 50 mg ONCE ONCE IV 02/24/22 16:15 02/24/22 16:16 DC 02/24/22 16:14 50 MG Sodium Bicarbonate 50 meq STK-MED ONCE .ROUTE 02/24/22 15:21 02/24/22 15:24 DC 02/24/22 15:26 100 MEQ Vital Signs/I&O 02/24/22 02/24/22 02/24/22 02/24/22 12:40 13:15 13:25 14:44 Temp 36.1 Pulse 120 122 122 Resp 28 16 B/P (MAP) 126/91 (103) 129/54 Pulse Ox 100 O2 Delivery Room Air FiO2 100 50 02/24/22 02/24/22 02/24/22 15:07 17:31 17:34 Temp 37.0 Pulse 137 147 150 Resp 22 B/P (MAP) 101/55 124/71 124/71 Pulse Ox 96 O2 Delivery Mechanical Ventilator O2 Flow Rate 50.00 Capillary Refill : Point of Care Testing Finger Stick Blood Glucose: 1000 Blood Glucose Action Taken: GLUCOMETER READS "HI" Progress Note : Progress Note Seen and evaluated. IV x2, labs, blood cultures, lactic acid, fingerstick blood sugar, normal saline 1 L bolus, LR 1 L bolus and [place] catheter ordered. Patient is in extremis and seems quite agitated. Does have history of prescribed benzodiazepine use. We will go ahead and give Ativan 1 mg IV. 1320: Patient has progressively declined despite fluids and and other attempts at redirection. Blood sugar too high to read. Labs have been drawn and are pending. Given patient's extremitas and altered mental status and the need for further fluid support and concerns for DKA and airway protection, we have elected to intubate the patient. 1325: Patient intubated without difficulty. We will proceed with central line to gain access. Does have apparent dialysis shunt to the right arm but does appear to have track hernandez. Unsure if this is from dialysis or if patient is injecting. Does have history of drug abuse. UDS added. 1345: Central line placed and complete. Placed via ultrasound guidance without difficulty. We have initiated 3 L of fluid with insulin 7 units IV now and we will initiate insulin drip. Patient has had some episodes of hypotension. We have Levophed available if needed. 1422: ABG very concerning for acidosis and consistent with DKA. Blood sugar 1540. Insulin drip running. We will continue IV fluids. Given patient's underlying renal failure and the need for dialysis, patient will need transfer. We will review for which center she typically goes to and initiate transfer proceedings. 1443: I did discuss the case with Dr. Hopkins, intensiveness at [facility] in [place]. Case discussed in full. He is recommending that change to 24 on the rate as well as addition of 2 A of sodium bicarb. He is excepted the patient to their facility. Pending bed number. We will initiate those changes. I have ordered propofol drip and we will use Levophed as needed to maintain appropriate blood pressure. Monitor patient. 1538: I have made adjustments of the initially tolerated 24 and then back down to 22 as patient seemed to be stacking a little bit. We did increase sedation and now have propofol up to 50 mcg/kg/min. Patient has been bucking the vent. Head of bed elevated. O2 saturation had started to decline but now is at 99% on 70% on vent with rate of 22, tidal volume 400 and PEEP of 5. Patient did receive 5 mg of Versed and 50 mcg of fentanyl earlier as sedation was increased. We are still pending bed assignment. Patient's daughter did call and did note that her dialysis is on Friday, and Friday. She apparently did receive dialysis yesterday. Monitor patient. 1711: Flight crew here. Report given to them by me. Patient is starting to be a little bit more awake again and bucking the vent. Versed 5 mg IV and fentanyl 50 mcg IV ordered. Propofol drip up to 80 mcg/kg/min. She is on her Levophed drip and that has been titrated to 0.1 and down to 0.05 mcg/kg/min. We will continue to monitor that and titrate as needed to affect with other agents. Patient has been accepted to the ICU and will go by flight. Diagnostic Imaging Diagonstic Imaging: Xray Plain Films/CT/US/NM/MRI: chest Comments [facility], [place] NAME: LAURENCE PLEITEZ [facility] REC#: [id number] PT STATUS: REG ER : 1965 PHYSICIAN: SUZETTE HEATH MD ADMIT DATE: 02/24/22/ER Draft Date of Exam:02/24/22 CHEST 1 VIEW, AP/PA ONLY INDICATION: Shortness of breath. Comparison made with prior examination of 12/01/2021. FINDINGS: The heart size is normal. Lungs are clear. No pleural effusion or pneumothorax. Lines and tubes are in satisfactory position. There is minimal venous congestion. IMPRESSION: The ET, NG and right frontal gyrus and venous catheters appear to be in satisfactory position. Mild central pulmonary venous congestion. Dictated on workstation # [id number] Dict: 02/24/22 1432 Trans: 02/24/22 1436 CVB [id number] Interpreted by: KELLY ROWE MD Electronically signed by: Critical Care Note Critical Care Start Time: 12:42 Stop Time: 17:11 Total Time (minutes) 60 minutes critical care time. Time excludes separately billable procedures including central line and intubation. Time includes evaluation, management, transfer proceedings and report and continued evaluation and management of this critical patient pending transport to critical care facility. Departure Impression Primary Impression: DKA (diabetic ketoacidosis) Qualified Codes: E10.11 - Type 1 diabetes mellitus with ketoacidosis with coma Additional Impressions: End stage renal disease on dialysis Respiratory failure Qualified Codes: J96.00 - Acute respiratory failure, unspecified whether with hypoxia or hypercapnia Methamphetamine abuse Disposition: XF SHT-TRM HOSP Condition: Critical (ERASED) Transfer Transfer Reason: Exceeds level of care Time Spoke to Accepting Phy: 14:31 Transfer Progress Notes [place], [place], Dr. Hopkins accepting. Transfer Time: 17:20 Transfer Facility: [place], [place] Method of Transfer: EMS ([facility]) Departure-Patient Inst. Referrals: ELIECER COLON DO (PCP/Family) Primary Care Physician SUZETTE HEATH MD Feb 24, 2022 13:12
[2022-02-24 13:13] LABS: CALCIUM 9.4 MG/DL (8.5-10.1)
[2022-02-24 13:14] LABS: TOTAL PROTEIN 7.6 GM/DL (6.4-8.2)
[2022-02-24] MEDS ORDERED: NOREPINEPHRINE 8 MG/250 ML 250 ML IV SCH (13:15)
[2022-02-24 13:16] LABS: BILIRUBIN,TOTAL 0.5 MG/DL (0.1-1.0); INR 1.2 (0.8-1.4); PROTHROMBIN TIME PATIENT 15.6 SEC (12.2-14.7)
[2022-02-24 13:17] LABS: ALKALINE PHOSPHATASE 97 U/L (40-136)
[2022-02-24 13:18] LABS: CREATININE SERUM 4.94 MG/DL (0.60-1.30); GFR ESTIMATED 10
[2022-02-24 13:19] LABS: BUN/CREATININE RATIO 13
[2022-02-24 13:21] LABS: ALANINE AMINOTRANSFERASE 18 U/L (0-55)
[2022-02-24 13:25] VITALS: BP 130/62
[2022-02-24 13:26] LABS: BAND NEUTROPHILS 4 %; BASOPHILS % (MANUAL) 0 %; CARBON DIOXIDE < 5 MMOL/L (21-32); EOSINOPHILS % (MANUAL) 0 %; LYMPHOCYTES % (MANUAL) 9 %; MONOCYTES % (MANUAL) 6 %; NEUTROPHILS % (MANUAL) 81 %; SODIUM 125 MMOL/L (135-145)
[2022-02-24 13:31] LABS: AMPHETAMINE SCREEN, URINE POSITIVE (NEGATIVE); BARBITURATE SCREEN URINE NEGATIVE (NEGATIVE); BENZODIAZEPINES SCREEN URINE NEGATIVE (NEGATIVE); CANNABINOID SCREEN, URINE NEGATIVE (NEGATIVE); COCAINE SCREEN URINE NEGATIVE (NEGATIVE); METHADONE STAT NEGATIVE (NEGATIVE); METHAMPHETAMINE SCREEN URINE S POSITIVE (NEGATIVE); OPIATE SCREEN URINE NEGATIVE (NEGATIVE); OXYCODONE STAT NEGATIVE (NEGATIVE); PROPOXYPHENE STAT NEGATIVE (NEGATIVE); TRICYCLIC ANTIDEPRESSANTS SCRE NEGATIVE (NEGATIVE)
[2022-02-24] MEDS ORDERED: inSUlin (REGULAR) HUMAN 1 UNIT/0.01 ML (CHARGE PER UNIT) IV ONE (13:45)
[2022-02-24] MEDS ORDERED: inSUlin (REGULAR) HUMAN 1 UNIT/0.01 ML (CHARGE PER UNIT) ONE (13:50)
[2022-02-24 13:57] LABS: GLUCOSE 1540 MG/DL (70-105)
[2022-02-24 14:00] LABS: ABG BASE EXCESS -23.5 MMOL/L (-2.5-2.5); ABG OXYGEN SATURATION 99 % (94-100); ABG PCO2 47 MMHG (35-45); ABG PO2 440 MMHG (79-93)
[2022-02-24 14:02] LABS: INSPIRED O2 100%; PATIENT TEMP 36.1; VENTILATOR YES
[2022-02-24 14:03] LABS: ABG PH 6.83 (7.37-7.43)
--- NOTE | 2022-02-24 14:36 | Diagnostic Imaging Report ---
INDICATION: Shortness of breath. Comparison made with prior examination of 12/01/2021. FINDINGS: The heart size is normal. Lungs are clear. No pleural effusion or pneumothorax. Lines and tubes are in satisfactory position. There is minimal venous congestion. IMPRESSION: The ET, NG and right frontal gyrus and venous catheters appear to be in satisfactory position. Mild central pulmonary venous congestion. Dictated by: Dictated on workstation # [id number]
[2022-02-24] MEDS ORDERED: PROPOFOL DRIP (ICU) 100 ML IV SCH ×2 (14:45→17:30)
[2022-02-24] MEDS ORDERED: SODIUM BICARB 8.4% 50 MEQ/50 ML (ABBOTT) SYR IV ONE (14:45)
[2022-02-24] MEDS ORDERED: SODIUM BICARB 8.4% 50 MEQ/50 ML VIAL ONE (15:21)
[2022-02-24] MEDS ORDERED: MIDAZOLAM 5 MG/5 ML (VERSED) VIAL ONE (15:49)
[2022-02-24 15:54] LABS: POTASSIUM 5.3 MMOL/L (3.6-5.0)
[2022-02-24 15:59] LABS: CREATININE SERUM 4.48 MG/DL (0.60-1.30)
[2022-02-24] MEDS ORDERED: MIDAZOLAM 5 MG/5 ML (VERSED) VIAL IVP ONE ×2 (16:00→17:15)
[2022-02-24] MEDS ORDERED: fentaNYL INJ 100 MCG/2 ML AMP IVP STA (17:10)
[2022-02-24 17:34] VITALS: BP 124/71
== END 2022-02-24 17:34 | disposition short-term general hospital (02) ==
LOC: EDUNIT# 12:40 → ER 12:45
DX: I13.2 Hypertensive heart and chronic kidney disease with heart failure and with stage 5 chronic kidney disease, or end stage renal disease (principal); N18.6 End stage renal disease; I50.9 Heart failure, unspecified; E10.22 Type 1 diabetes mellitus with diabetic chronic kidney disease; E10.11 Type 1 diabetes mellitus with ketoacidosis with coma; E10.40 Type 1 diabetes mellitus with diabetic neuropathy, unspecified; J96.00 Acute respiratory failure, unspecified whether with hypoxia or hypercapnia; F15.10 Other stimulant abuse, uncomplicated; F17.210 Nicotine dependence, cigarettes, uncomplicated; Z99.2 Dependence on renal dialysis
CPT/HCPCS: 31500; 36415; 36600; 51702; 71045; 80048; 80053; 80306; 81000; 82805; 83605; 85007; 85027; 85610; 85730; 87040; 87077; 87088; 87184; 87186; 87635; 87636; 87804; 99291

== ENCOUNTER 2022-08-30 13:34 | Emergency (ER) | payer MEDICAID ==
[~2022-08-30] VITALS: Ht 165 cm; Wt 68.2 kg
[2022-08-30] MEDS ORDERED: ETOMIDATE IV SOLN 20 MG/10 ML VIAL IV ONE ×2 (13:36→14:15)
[2022-08-30] MEDS ORDERED: MIDAZOLAM 5 MG/5 ML (VERSED) VIAL IVP ONE ×3 (13:36→17:45)
[2022-08-30] MEDS ORDERED: SODIUM BICARB 8.4% 50 MEQ/50 ML VIAL IV ONE (13:36)
[2022-08-30] MEDS ORDERED: ROCURONIUM 10 MG/ML 5 ML SYRINGE IV ONE ×4 (13:36→18:00)
[2022-08-30] MEDS ORDERED: CALCIUM CHLORIDE 1 GM/10 ML (IMS) SYR IV ONE (13:36)
[2022-08-30] MEDS ORDERED: fentaNYL INJ 100 MCG/2 ML AMP IV ONE (13:36)
[2022-08-30 14:01] LABS: BILIRUBIN,URINE NEGATIVE (NEGATIVE); CLARITY,URINE CLEAR; COLOR,URINE YELLOW; GLUCOSE, URINE (UA) 3+ (NEGATIVE); KETONES,URINE TRACE (NEGATIVE); LEUKOCYTE ESTERASE ,URINE NEGATIVE (NEGATIVE); NITRITE,URINE NEGATIVE (NEGATIVE); PROTEIN,URINE 1+ (NEGATIVE)
[2022-08-30 14:02] LABS: BASOPHILS # (AUTO) 0.1 10^3/uL (0.0-0.1); BASOPHILS % (AUTO) 1 % (0-10); EOSINOPHILS # (AUTO) 0.1 10^3/uL (0.0-0.3); EOSINOPHILS % (AUTO) 0 % (0-10); HEMATOCRIT 38 % (35-52); HEMOGLOBIN 9.8 g/dL (11.5-16.0); LYMPHOCYTES # (AUTO) 2.4 10^3/uL (1.0-4.0); LYMPHOCYTES % (AUTO) 10 % (12-44); MEAN CORPUSCULAR HEMOGLOBIN 33 pg (25-34); MEAN CORPUSCULAR HGB CONC 26 g/dL (32-36); MEAN CORPUSCULAR VOLUME 127 fL (80-99); MEAN PLATELET VOLUME 11.3 fL (9.0-12.2); MONOCYTES # (AUTO) 1.5 10^3/uL (0.0-1.0); MONOCYTES % (AUTO) 6 % (0-12); NEUTROPHILS % (AUTO) 79 % (42-75); PLATELET COUNT 262 10^3/uL (130-400)
[2022-08-30] MEDS ORDERED: NS IV 1000 ML 1,000 ML ONE ×2 (14:04→18:01)
[2022-08-30 14:11] LABS: ALBUMIN 3.6 GM/DL (3.2-4.5); CHLORIDE 72 MMOL/L (98-107)
[2022-08-30 14:13] LABS: CALCIUM 8.1 MG/DL (8.5-10.1)
[2022-08-30 14:14] LABS: TOTAL PROTEIN 6.4 GM/DL (6.4-8.2)
[2022-08-30 14:15] LABS: BILIRUBIN,TOTAL 0.5 MG/DL (0.1-1.0)
[2022-08-30] MEDS ORDERED: fentaNYL INJ 100 MCG/2 ML AMP IVP ONE (14:15)
[2022-08-30 14:16] LABS: INR 1.5 (0.8-1.4); PROTHROMBIN TIME PATIENT 18.6 SEC (12.2-14.7)
[2022-08-30 14:17] LABS: ALKALINE PHOSPHATASE 87 U/L (40-136); CREATININE SERUM 5.24 MG/DL (0.60-1.30); GFR ESTIMATED 9
[2022-08-30 14:19] LABS: BACTERIA,URINE FEW /HPF; BUN/CREATININE RATIO 11; RBC,URINE 0-2 /HPF; SQUAMOUS EPITHELIAL CELL,UR 0-2 /HPF; WBC,URINE 0-2 /HPF
[2022-08-30 14:20] LABS: ALANINE AMINOTRANSFERASE 23 U/L (0-55)
[2022-08-30 14:23] LABS: POTASSIUM 7.5 MMOL/L (3.6-5.0); SODIUM 115 MMOL/L (135-145)
[2022-08-30 14:25] LABS: BAND NEUTROPHILS 4 %; BASOPHILS % (MANUAL) 0 %; EOSINOPHILS % (MANUAL) 0 %; LYMPHOCYTES % (MANUAL) 11 %; MONOCYTES % (MANUAL) 6 %; MYELOCYTES % 1 %; NEUTROPHILS % (MANUAL) 78 %
[2022-08-30 14:27] LABS: ABG BASE EXCESS -25.8 MMOL/L (-2.5-2.5); ABG OXYGEN SATURATION 97 % (94-100); ABG PCO2 24 MMHG (35-45); ABG PO2 133 MMHG (79-93)
[2022-08-30 14:30] LABS: ABG PH 6.89 (7.37-7.43); ABG TCO2 5.6 MMOL/L (21.0-31.0)
[2022-08-30 14:31] LABS: PATIENT TEMP 33.4; VENTILATOR YES
[2022-08-30 14:32] LABS: CARBON DIOXIDE < 5 MMOL/L (21-32); GLUCOSE 1973 MG/DL (70-105)
[2022-08-30] MEDS ORDERED: inSUlin (REGULAR) HUMAN 1 UNIT/0.01 ML (CHARGE PER UNIT) ONE (14:33)
[2022-08-30] MEDS ORDERED: SODIUM BICARB 8.4% 50 MEQ/50 ML (ABBOTT) SYR ONE (14:33)
[2022-08-30] MEDS ORDERED: PROPOFOL DRIP (ICU) 100 ML IV SCH (14:45)
--- NOTE | 2022-08-30 14:49 | ED General ---
General Chief Complaint: Altered Mental Status Stated Complaint: HIGH BS Nursing Triage Note: PT TO ED ROOM 3 PER EMS. EMS STATES SHE MISSED DIALYSIS THIS AM AND WAS FOUND UNRESPONSIVE/MOANING BY HER SKIL WORKER. PT CONTINUOUSLY MOANING, DOES RESPOND TO SOME QUESTIONS. Source of Information: Patient Exam Limitations: No Limitations History of Present Illness Date Seen by Provider: Aug 30, 2022 Time Seen by Provider: 13:43 Initial Comments Here by EMS with report of altered mental status and missed dialysis this morning. She was found unresponsive and/or moaning by skilled worker today. This is all she is doing currently. She is not answering questions or following commands. She seems quite disoriented. Known diabetic with blood sugar greater than 600 and known end-stage renal disease on dialysis. Had similar presentation in February requiring intubation and transfer due to severe DKA. No report of recent illness. Unknown other review of systems. Daughter called later and states that she does this sometimes and it is sometimes associated with methamphetamine abuse. Timing/Duration: 24 Hours Severity: Severe Allergies and Home Medications Allergies Coded Allergies: morphine (Verified Allergy, Mild, Vomiting, 05/20/20) orange juice (Verified Allergy, Mild, Nausea, 05/24/20) Sulfa (Sulfonamide Antibiotics) (Unverified Allergy, Unknown, 05/11/15) codeine (Verified Allergy, Unknown, TAKES ULTRAM AT HOME, 11/18/08) ketorolac (Verified Allergy, Unknown, 10/05/08) tramadol (Verified Allergy, Unknown, 11/02/11) Patient Home Medication List Home Medication List Reviewed: Yes Albuterol Sulfate (Proair Hfa) 1 Puff Puff, 2 PUFF IH TID PRN for SHORTNESS OF BREATH, (Reported) Entered as Reported by: ISABELLA DAMIAN on 06/28/19 0913 Aspirin (Aspirin) 81 Mg Tab.chew, 81 MG PO DAILY, (Reported) Entered as Reported by: CAMRON HAND on 08/08/20 1012 Cephalexin (Cephalexin) 500 Mg Tablet, 500 MG PO TID Prescribed by: LIZET MAS on 06/07/21 1342 Diclofenac Sodium (Diclofenac Sodium) 100 Gm Gel..gram., 1 APPLIC TOP QID PRN for CRAMPS, (Reported) Entered as Reported by: CAMRON HAND on 05/04/20 1349 Ergocalciferol (Vitamin D2) (Vitamin D2) 1,250 Mcg Capsule, 1,250 MCG PO THUR, (Reported) Entered as Reported by: CAMRON HAND on 11/27/20 1104 Fluticasone Propionate (Flonase Allergy Relief) 9.9 Ml [place].susp, 2 SPRAY NSEACH DAILY, (Reported) Entered as Reported by: CAMRON HAND on 05/04/20 1349 Furosemide (Furosemide) 80 Mg Tablet, 80 MG PO BID, (Reported) Entered as Reported by: CAMRON HAND on 11/27/20 1104 Gabapentin (Neurontin) 300 Mg Capsule, 600 MG PO Q8H, (Reported) Entered as Reported by: CAMRON HAND on 08/08/20 1012 Insulin Determir (Levemir) 1,000 Units/10 Ml Soln, 15 UNITS SQ HS Prescribed by: TRUDI SERRANO on 11/28/20 1229 Insulin Lispro (Humalog Kwikpen) 100 Unit/1 Ml Insuln.pen, 5-15 UNITS SQ AC, (Reported) Entered as Reported by: CAMRON HAND on 12/27/19 1551 Isosorbide Mononitrate (Isosorbide Mononitrate ER) 30 Mg Tab.er.24h, 30 MG PO DAILY, (Reported) Entered as Reported by: CAMRON HAND on 11/27/20 1104 Lorazepam (Ativan) 1 Mg Tablet, 1 MG PO TID PRN for ANXIETY, (Reported) Entered as Reported by: CAMRON HAND on 11/27/20 110 Magnesium Oxide (Magnesium Oxide) 400 Mg Tablet, 400 MG PO BID, (Reported) Entered as Reported by: CAMRON HAND on 11/27/20 1104 Melatonin (Melatonin) 10 Mg Tablet, 10 MG PO HS, (Reported) Entered as Reported by: CAMRON HAND on 05/04/20 1349 Metoclopramide HCl (Metoclopramide HCl) 10 Mg Tablet, 10 MG PO QIDACHS, (Reported) Entered as Reported by: CAMRON HAND on 05/04/20 1349 Metolazone (Metolazone) 5 Mg Tablet, 5 MG PO MON,WE,FR, (Reported) Entered as Reported by: BALJINDER MCFADDEN on 11/26/20 1600 Metoprolol Tartrate (Metoprolol Tartrate) 50 Mg Tablet, 75 MG PO BID, (Reported) Entered as Reported by: CAMRON HAND on 08/08/20 1012 Montelukast Sodium (Montelukast Sodium) 10 Mg Tablet, 10 MG PO HS, (Reported) Entered as Reported by: DOMINIQUE WILLIAM on 06/27/19 1144 Multivit-Min/FA/Lycopene/Lut (Certavite Sr-Antioxidant Tab) 1 Each Tablet, 1 EA PO DAILY, (Reported) Entered as Reported by: CAMRON HAND on 11/27/20 1104 Naloxone HCl (Narcan) 4 Mg [place], 1 SPRAY NS UD PRN for UNRESPONSIVE, (Reported) Entered as Reported by: CAMRON HAND on 05/04/20 1349 Omeprazole (Omeprazole) 20 Mg Capsule.dr, 20 MG PO DAILY, (Reported) Entered as Reported by: CAMRON HAND on 05/04/20 1349 Oxycodone HCl (Oxycodone HCl) 5 Mg Tablet, 5 MG PO DAILY PRN for PAIN-SEVERE (8- 10), (Reported) Entered as Reported by: CAMRON HAND on 11/27/20 1104 Prednisone (Prednisone) 20 Mg Tab, 40 MG PO DAILY Prescribed by: LIZET MAS on 06/07/21 1342 Torsemide (Torsemide) 100 Mg Tablet, 100 MG PO 0800,1500, (Reported) Entered as Reported by: BALJINDER MCFADDEN on 11/26/20 1600 [Iron Slow Release] 45 TAB, 45 MG PO DAILY, (Reported) Entered as Reported by: CAMRON HAND on 11/27/20 1104 Review of Systems Review of Systems Constitutional: see HPI Unable to complete review of systems due to altered mental status and clinical condition Past Varfyrx-Sjbhmn-Oqllpk Hx Immunizations Up To Date Tetanus Booster (TDap): Unknown First/Initial COVID19 Vaccinat: UNK Second COVID19 Vaccination Adam: UNK Third COVID19 Vaccination Date: UNK Seasonal Allergies Seasonal Allergies: Yes Past Medical History Surgery/Hospitalization HX: DIALYSIS GRAFT/AV FISTULA IN RIGHT UPPER ARM, DIALYSIS 3X/WK Surgeries: Yes (URETERAL STENTS) Abdominal, Adenoidectomy, Dialysis, Ear Surgery, Hysterectomy, Renal, Tonsillectomy, Tubal Ligation, Vascular Surgery Respiratory: Yes (INTUBATED 05/16/20 WITH DKA/RESP FAILURE) Asthma, Pneumonia, Chronic Bronchitis, COPD Currently Using CPAP: No Currently Using BIPAP: No Cardiac: Yes (CHF) Deep Vein Thrombosis, High Cholesterol, Hypertension Neurological: Yes Neuropathy Reproductive Disorders: Yes Female Reproductive Disorders: Menstrual Problems DETENTION OFFICER History: Hysterectomy, Menopausal Genitourinary: Yes (DIALYSIS --FRI; URETERAL STENTS FOR KIDNEY STONES) Renal Failure, Dialysis Gastrointestinal: Yes Hepatitis Musculoskeletal: Yes (CHRONIC GENERALIZED PAIN) Arthritis, Rheumatoid Arthritis, Fractures Endocrine: Yes (NON-COMPLIANT; MULTIPLE EPISODES OF DKA) Diabetes, Insulin dep HEENT: Yes (S/P T&A) Tonsilitis, Glaucoma Loss of Vision: Denies Hearing Impairment: Denies Cancer: No Psychosocial: Yes (POLYSUBSTANCE ABUSE) Anxiety, Personality Disorder, Depression Integumentary: No Blood Disorders: No Adverse Reaction/Blood Tranf: No Family Medical History Reviewed Nursing Family Hx FH: thyroid cancer G8 SISTER FHx: macular degeneration 19 MOTHER Glaucoma G8 BROTHER Heart Disease, Cancer, Diabetes SOCIAL HISTORY: -ETOH--REGULAR USE--"COUPLE OF DRINKS" SEVERAL NIGHTS A WEEK -DRUGS--+ METH AND THC USE -SMOKES > 1 PPD PAST SURGICAL HISTORY: -TONSILLECTOMY AND ADENOIDECTOMY -BILATERAL TUBAL LIGATION -HYSTERECTOMY -EXPLORATORY LAPAROSCOPY -URETERAL STENTS FOR KIDNEY STONES/CYSTOSCOPIES -EAR SURGERY -RIGHT UPPER ARM DIALYSIS GRAFT/AV FISTULA Physical Exam Vital Signs Vital Signs - First Documented 08/30/22 13:34 Temp 33.4 Pulse 94 Resp 30 B/P (MAP) 110/97 (101) Pulse Ox 100 O2 Delivery Non Rebreather O2 Flow Rate 10.00 FiO2 100 Capillary Refill : Less Than 3 Seconds Height, Weight, BMI Height: 5'5.00" Weight: 151lbs. 1.0oz. 68.817239qs; 25.00 BMI Method:Stated General Appearance: WD/WN, Moderate Distress HEENT: PERRL/EOMI, Other Neck: Full Range of Motion, Supple Respiratory: Lungs Clear, Normal Breath Sounds Cardiovascular: No Murmur, Tachycardia Gastrointestinal: No Pulsatile Mass, Soft Back: No CVA Tenderness Extremity: No Pedal Edema, Pelvis Stable Neurologic/Psychiatric: Disoriented (X3), Other (Does appear to be moving all extremities) Skin: Normal Color, Cool; No Diaphoresis; Ecchymosis (Right upper extremity near dialysis shunt) Focused Exam Lactate Level 08/30/22 13:50: Lactic Acid Level 12.55*H 08/30/22 16:55: Lactic Acid Level 6.51*H Lactic Acid Level Laboratory Tests Test 08/30/22 13:50 08/30/22 16:55 Lactic Acid Level 12.55 MMOL/L (0.50-2.00) *H 6.51 MMOL/L (0.50-2.00) *H Procedures/Interventions Lumen: triple Central Line Procedure: betadine prep, sterile drapes applied, sterile dressing applied Position: internal jugular (R) Complications: none Post Position: sutured, good blood return, position confirmed w/ CXR Central line placed via ultrasound guidance x1 stick without complications. Followed Seldinger technique. Sterile dressing applied by me. Good draw and flush. Confirmed with chest x-ray. No complications. Date of ETT Placement: Aug 30, 2022 Time of ETT Placement: 14:04 Tube Size: 7.50 Medications: Etomidate, Rocuronium Positive End Tide CO2: Yes Breath Sounds after Intubation: bilateral-equal Intubation Complications: no complications Post Intubation Xray: Yes ET tube in good position Intubated due to emergent condition with altered mental status and concern for respiratory compromise. Intubated via glide scope x1 attempt without complication. Oral mucosa very dry. Tube viewed through cords. Positive end- tidal CO2 color change and bilateral breath sounds without epigastric sounds and confirmed with chest x-ray. O2 saturations remained 100% throughout intubation attempt and intubation. Tolerated procedure well with no complications. Progress/Results/Core Measures Suspected Sepsis SIRS Temperature: Pulse: 103 Respiratory Rate: 18 Laboratory Tests 08/30/22 13:48: White Blood Count 24.0H Blood Pressure 110 /97 Mean: 101 08/30/22 13:50: Lactic Acid Level 12.55*H 08/30/22 16:55: Lactic Acid Level 6.51*H Laboratory Tests 08/30/22 13:48: Creatinine 5.24H, INR Comment 1.5H, Platelet Count 262, Total Bilirubin 0.5 Results/Orders Lab Results Laboratory Tests Test 08/30/22 13:46 08/30/22 13:48 08/30/22 13:50 08/30/22 14:28 Range/Units Urine Opiates Screen NEGATIVE NEGATIVE Urine Oxycodone Screen NEGATIVE NEGATIVE Urine Methadone Screen NEGATIVE NEGATIVE Urine Propoxyphene Screen NEGATIVE NEGATIVE Urine Barbiturates Screen NEGATIVE NEGATIVE Ur Tricyclic Antidepressants Screen NEGATIVE NEGATIVE Urine Phencyclidine Screen NEGATIVE NEGATIVE Urine Amphetamines Screen POSITIVE H NEGATIVE Urine Methamphetamines Screen POSITIVE H NEGATIVE Urine Benzodiazepines Screen NEGATIVE NEGATIVE Urine Cocaine Screen NEGATIVE NEGATIVE Urine Cannabinoids Screen NEGATIVE NEGATIVE White Blood Count 24.0 H 4.3-11.0 10^3/uL Red Blood Count 3.01 L 3.80-5.11 10^6/uL Hemoglobin 9.8 L 11.5-16.0 g/dL Hematocrit 38 35-52 % Mean Corpuscular Volume 127 H 80-99 fL Mean Corpuscular Hemoglobin 33 25-34 pg Mean Corpuscular Hemoglobin Concent 26 L 32-36 g/dL Red Cell Distribution Width 13.7 10.0-14.5 % Platelet Count 262 130-400 10^3/uL Mean Platelet Volume 11.3 9.0-12.2 fL Immature Granulocyte % (Auto) 4 % Neutrophils (%) (Auto) 79 H 42-75 % Lymphocytes (%) (Auto) 10 L 12-44 % Monocytes (%) (Auto) 6 0-12 % Eosinophils (%) (Auto) 0 0-10 % Basophils (%) (Auto) 1 0-10 % Neutrophils # (Auto) 19.0 H 1.8-7.8 10^3/uL Lymphocytes # (Auto) 2.4 1.0-4.0 10^3/uL Monocytes # (Auto) 1.5 H 0.0-1.0 10^3/uL Eosinophils # (Auto) 0.1 0.0-0.3 10^3/uL Basophils # (Auto) 0.1 0.0-0.1 10^3/uL Immature Granulocyte # (Auto) 1.0 H 0.0-0.1 10^3/uL Neutrophils % (Manual) 78 % Lymphocytes % (Manual) 11 % Monocytes % (Manual) 6 % Eosinophils % (Manual) 0 % Basophils % (Manual) 0 % Myelocytes % 1 % Band Neutrophils 4 % Macrocytosis MODERATE Prothrombin Time 18.6 H 12.2-14.7 SEC INR Comment 1.5 H 0.8-1.4 Activated Partial Thromboplast Time 31 24-35 SEC Urine Color YELLOW Urine Clarity CLEAR Urine pH 5.0 5-9 Urine Specific [place] 1.015 L 1.016-1.022 Urine Protein 1+ H NEGATIVE Urine Glucose (UA) 3+ H NEGATIVE Urine Ketones TRACE H NEGATIVE Urine Nitrite NEGATIVE NEGATIVE Urine Bilirubin NEGATIVE NEGATIVE Urine Urobilinogen 0.2 < = 1.0 MG/DL Urine Leukocyte Esterase NEGATIVE NEGATIVE Urine RBC (Auto) TRACE-I H NEGATIVE Urine RBC 0-2 /HPF Urine WBC 0-2 /HPF Urine Squamous Epithelial Cells 0-2 /HPF Urine Crystals NONE /LPF Urine Bacteria FEW H /HPF Urine Casts NONE /LPF Urine Mucus NEGATIVE /LPF Urine Culture Indicated NO Sodium Level 115 *L 135-145 MMOL/L Potassium Level 7.5 *H 3.6-5.0 MMOL/L Chloride Level 72 L 98-107 MMOL/L Carbon Dioxide Level < 5 *L 21-32 MMOL/L Anion Gap 38 H 5-14 MMOL/L Blood Urea Nitrogen 58 H 7-18 MG/DL Creatinine 5.24 H 0.60-1.30 MG/DL Estimat Glomerular Filtration Rate 9 BUN/Creatinine Ratio 11 Glucose Level 1973 *H 70-105 MG/DL Calcium Level 8.1 L 8.5-10.1 MG/DL Corrected Calcium 8.4 L 8.5-10.1 MG/DL Total Bilirubin 0.5 0.1-1.0 MG/DL Aspartate Amino Transf (AST/SGOT) 33 5-34 U/L Alanine Aminotransferase (ALT/SGPT) 23 0-55 U/L Alkaline Phosphatase 87 40-136 U/L C-Reactive Protein High Sensitivity 2.37 H 0.00-0.50 MG/DL Total Protein 6.4 6.4-8.2 GM/DL Albumin 3.6 3.2-4.5 GM/DL Procalcitonin 22.92 H <0.10 NG/ML Lactic Acid Level 12.55 *H 0.50-2.00 MMOL/L Blood Gas Puncture Site UNK Blood Gas Patient Temperature 33.4 Arterial Blood pH 6.89 *L 7.37-7.43 Arterial Blood Partial Pressure CO2 24 L 35-45 MMHG Arterial Blood Partial Pressure O2 133 H 79-93 MMHG Arterial Blood HCO3 5 *L 23-27 MMOL/L Arterial Blood Total CO2 5.6 *L 21.0-31.0 MMOL/L Arterial Blood Oxygen Saturation 97 94-100 % Arterial Blood Base Excess -25.8 L -2.5-2.5 MMOL/L Long Test UNK Blood Gas Ventilator Setting YES Blood Gas Inspired Oxygen UNK Test 08/30/22 16:55 Range/Units Lactic Acid Level 6.51 *H 0.50-2.00 MMOL/L My Orders Orders - SUZETTE HEATH MD Ekg Tracing (08/30/22 13:36) Cbc With Automated Diff (08/30/22 13:53) Comprehensive Metabolic Panel (08/30/22 13:53) Blood Culture (08/30/22 13:53) Sputum Culture (08/30/22 13:53) Urinalysis (08/30/22 13:53) Urine Culture (08/30/22 13:53) Protime With Inr (08/30/22 13:53) Partial Thromboplastin Time (08/30/22 13:53) Chest 1 View, Ap/Pa Only (08/30/22 13:53) Ed Iv/Invasive Line Start (08/30/22 13:53) Vital Signs Adult Sepsis Patie Q15M (08/30/22 13:53) O2 (08/30/22 13:53) Remove Rings In Anticipation O (08/30/22 13:53) Lactic Acid Analyzer (08/30/22 13:53) Arterial Blood Gas (08/30/22 13:53) Hs C Reactive Protein (08/30/22 13:53) Procalcitonin (Pct) (08/30/22 13:53) Catheter(Urinary) Insert & Ass 03,15 (08/30/22 13:53) Etomidate Injection (Amidate Injection) (08/30/22 14:15) Rocuronium 5 Ml Syringe (Rocuronium 5 Ml (08/30/22 14:15) Manual Differential (08/30/22 13:48) Ns Iv 1000 Ml (Sodium Chloride 0.9%) (08/30/22 14:04) Midazolam Injection (Versed Injection) (08/30/22 14:15) Fentanyl Inj (Sublimaze Injection) (08/30/22 14:15) Arterial Blood Gas (08/30/22 14:23) Insulin (Regular) Human (Novolin R (Per (08/30/22 14:33) Sodium Bicarbonate 8.4% Syr (Sodium Bica (08/30/22 14:33) Propofol Drip (Icu) (Diprivan Drip (Icu) (08/30/22 14:45) Calcium Chloride 10% Injection (Calcium (08/30/22 15:00) Piperacillin Sodium/Tazobactam (Zosyn Vi (08/30/22 15:00) Insulin Regular Drip (Myxredlin 100 Unit (08/30/22 15:33) Sodium Bicarbonate 8.4% Syr (Sodium Bica (08/30/22 16:15) Midazolam Injection (Versed Injection) (08/30/22 16:00) Fentanyl Inj (Sublimaze Injection) (08/30/22 16:00) Norepinephrine 8 Mg/250 Ml (Norepinephri (08/30/22 17:09) Norepinephrine 8 Mg/250 Ml (Norepinephri (08/30/22 17:15) Drug Screen Stat (Urine) (08/30/22 17:30) Midazolam Injection (Versed Injection) (08/30/22 17:45) Rocuronium 5 Ml Syringe (Rocuronium 5 Ml (08/30/22 18:00) Ns Iv 1000 Ml (Sodium Chloride 0.9%) (08/30/22 18:15) Ns Iv 1000 Ml (Sodium Chloride 0.9%) (08/30/22 18:01) Ns Iv 1000 Ml (Sodium Chloride 0.9%) (08/30/22 18:01) Etomidate Injection (Amidate Injection) (08/30/22 13:36) Fentanyl Inj (Sublimaze Injection) (08/30/22 13:36) Midazolam Injection (Versed Injection) (08/30/22 13:36) Rocuronium 5 Ml Syringe (Rocuronium 5 Ml (08/30/22 13:36) Calcium Chloride 10% Injection (Calcium (08/30/22 13:36) Sodium Bicarbonate 8.4% Vial (Sodium Bic (08/30/22 13:36) Fentanyl Inj (Sublimaze Injection) (08/30/22 18:16) Propofol Drip (Icu) (Diprivan Drip (Icu) (08/30/22 18:16) Medications Given in ED Current Medications Medications Dose Ordered Sig/Nehemias Route Start Time Stop Time Status Last Admin Dose Admin Calcium Chloride 1 gm ONCE ONCE INJ 08/30/22 15:00 08/30/22 15:01 DC 08/30/22 14:48 1 GM Etomidate 20 mg ONCE ONCE IV 08/30/22 14:15 08/30/22 14:16 DC 08/30/22 14:02 20 MG Fentanyl Citrate 50 mcg ONCE ONCE IVP 08/30/22 14:15 08/30/22 14:16 DC 08/30/22 14:11 50 MCG Fentanyl Citrate 100 mcg STK-MED ONCE .ROUTE 08/30/22 16:00 08/30/22 16:04 DC 08/30/22 16:07 50 MCG Fentanyl Citrate 100 mcg STK-MED ONCE .ROUTE 08/30/22 18:16 08/30/22 18:19 DC 08/30/22 18:21 100 MCG Insulin Human Regular 1 unit STK-MED ONCE .ROUTE 08/30/22 14:33 08/30/22 14:37 DC 08/30/22 14:45 10 UNIT Midazolam HCl 5 mg ONCE ONCE IVP 08/30/22 14:15 08/30/22 14:16 DC 08/30/22 14:11 5 MG Midazolam HCl 5 mg ONCE ONCE IVP 08/30/22 17:45 08/30/22 17:46 DC 08/30/22 17:46 5 MG Midazolam HCl 5 mg STK-MED ONCE .ROUTE 08/30/22 16:00 08/30/22 16:04 DC 08/30/22 16:06 5 MG Piperacillin Sod/ Tazobactam Sod 4.5 gm/Sodium Chloride 100 ml @ 200 mls/hr ONCE ONCE IV 08/30/22 15:00 08/30/22 15:29 DC 08/30/22 15:26 200 MLS/HR Rocuronium [place] 50 mg ONCE ONCE IV 08/30/22 14:15 08/30/22 14:16 DC 08/30/22 14:03 50 MG Rocuronium [place] 50 mg ONCE ONCE IV 08/30/22 18:00 08/30/22 18:01 DC 08/30/22 17:54 50 MG Sodium Bicarbonate 50 meq STK-MED ONCE .ROUTE 08/30/22 14:33 08/30/22 14:37 DC 08/30/22 14:46 50 MEQ Sodium Bicarbonate 100 meq ONCE ONCE IV 08/30/22 16:15 08/30/22 16:16 DC 08/30/22 16:08 100 MEQ Sodium Chloride 1,000 ml @ STK-MED ONCE .ROUTE 08/30/22 14:04 08/30/22 14:07 DC 08/30/22 14:14 999 MLS/HR Sodium Chloride 1,000 ml @ STK-MED ONCE .ROUTE 08/30/22 18:01 08/30/22 18:04 DC 08/30/22 18:04 1,000 MLS/HR Vital Signs/I&O 08/30/22 08/30/22 08/30/22 08/30/22 13:34 13:34 14:22 14:24 Temp 33.4 35.3 Pulse 94 103 Resp 30 18 B/P (MAP) 110/97 (101) Pulse Ox 100 100 O2 Delivery Non Rebreather Non Rebreather O2 Flow Rate 10.00 10.00 FiO2 100 60 08/30/22 08/30/22 08/30/22 08/30/22 14:57 17:40 17:50 17:57 Temp 38.1 Pulse 110 120 122 125 Resp 28 18 B/P (MAP) 117/83 92/62 111/52 Pulse Ox 100 100 O2 Delivery Mechanical Ventilator FiO2 60 Capillary Refill : Less Than 3 Seconds Blood Pressure Mean: 101 Point of Care Testing Finger Stick Blood Glucose: 600 Blood Glucose Action Taken: HI >600, DR NOTIFIED Progress Note : Progress Note Seen and evaluated. Patient is obviously in extremis with significant altered mental status and concerns for respiratory failure. IV x2 established, labs, blood cultures and lactic acid ordered. EKG and chest x-ray ordered. Given concerns for respiratory failure, we will moved to intubation and then subsequently we will moved to central line placement. We have normal saline 1 L bolus running and we will repeat that. Records review shows that she had very similar presentation in early February with similar concerns and requirements necessitating transfer. Patient does have end-stage renal disease and is on hemodialysis. She did miss dialysis today. 1445: Central line complete and position verified. We are using central line. Labs reviewed thus far. We have added 10 units of insulin IV and 1 amp of calcium citrate IV followed by 1 amp of sodium bicarb. EKG does show peaked T waves. We will initiate transfer. Daughter has called and did mention that patient will sometimes go into this if she uses methamphetamine. I have added urine drug screen. We will initiate transfer proceedings to [facility] in [place], [place]. 1458: [facility] is on diversion for ICU and MedSurg currently. We will initiate transfer to [facility]. 1502: I have called [facility] and am waiting to discuss with transfer nurse.1510: Information initiated for transfer for this patient. I did discuss all current pertinent findings and treatment. She will call back with linux system administrator. 1527: We have initiated hold for helicopter transport as we have multiple transfers from the ER currently and this patient is quite sick on fluids, antibiotics, sedative and monitoring for need for norepinephrine. We will initiate insulin drip. 1600: I have spoken with Dr. Perdue, linux system administrator at [facility] in [facility]. We did review the case in entirety and he h as accepted patient for transfer to their ICU. Patient will go by flight. He is recommending 2 additional amps of sodium bicarbonate which were ordered. He agrees to plan thus far. Patient remains comfortable on propofol drip with blood pressure greater than 110 systolic. Propofol drip increased to 40 mcg/kg/min. I did repeat bolus Versed 5 mg IV and fentanyl 50 mcg IV. 1815: I have continue to manage the patient and we have adjusted propofol drip as needed for sedation. We have given rocuronium 50 mg IV as patient was biting on tube and overbreathing significantly. Vital signs are improved on propofol drip and insulin drip. We did have norepinephrine at 0.05 mcg/kg/min but that has been stopped as her blood pressure is 130 systolic currently. Flight crew is here for transfer and report given to them by me. I did discuss critical nature of condition with family. They are at bedside and we will go ahead and go over to [facility] now. ECG Initial ECG Impression Date: Aug 30, 2022 Initial ECG Impression Time: 14:10 Initial ECG Rate: 164 Initial ECG Rhythm: S.Tach Comment Sinus rhythm with peaked T waves with rate of approximately 80-90 (missed read on EKG due to counting peaked T waves). Right ventricular conduction delay noted. Right axis deviation. No evidence of ST elevation AR. Interpreted by me. Diagnostic Imaging Diagonstic Imaging: Xray Plain Films/CT/US/NM/MRI: chest Comments [facility], [facility]. [place], [place] NAME: LAURENCE PLEITEZ [facility] REC#: [id number] PT STATUS: REG ER : 1965 PHYSICIAN: SUZETTE HEATH MD ADMIT DATE: 08/30/22/ER Draft Date of Exam:08/30/22 CHEST 1 VIEW, AP/PA ONLY EXAMINATION: Chest 1 view HISTORY: AMS COMPARISON: 02/24/2022. FINDINGS: Heart size and pulmonary vasculature are normal. There are diffuse interstitial opacities seen throughout the lungs. No pleural effusion or pneumothorax. Right IJ central line is present overlying the SVC. An endotracheal tube is present above the cherie. An enteric catheter courses below the diaphragm. The osseous structures are intact. IMPRESSION: 1. Diffuse interstitial opacities throughout the lungs which can be seen with atypical infection or pulmonary edema. Dictated on workstation # [id number] Dict: 08/30/22 1444 Trans: 08/30/22 1448 [id number] Interpreted by: JEREMIAH BURNS DO Electronically signed by: Critical Care Note Critical Care Start Time: 13:43 Stop Time: 18:15 Total Time (minutes) 60min critical care time excluding separately billable procedures for evaluation, management, critical care, transfer discussions and checkout to flight crew. See progress note for details. Departure Impression Primary Impression: DKA (diabetic ketoacidosis) Qualified Codes: E10.11 - Type 1 diabetes mellitus with ketoacidosis with coma Additional Impressions: Acute respiratory failure Qualified Codes: J96.00 - Acute respiratory failure, unspecified whether with hypoxia or hypercapnia Hyperkalemia End stage renal disease on dialysis Pneumonia Qualified Codes: J18.9 - Pneumonia, unspecified organism Disposition: S[facility]-TRM HOSP Condition: Critical Transfer Transfer Reason: Exceeds level of care Time Spoke to Accepting Phy: 16:00 Transfer Progress Notes Excepted at [facility], Dr. Perdue accepting. Patient will go by helicopter EMS Transfer Time: 18:15 Transfer Facility: [facility], [place]. Method of Transfer: Air Departure-Patient Inst. Referrals: COLON,ELIECER C DO (PCP/Family) Primary Care Physician SUZETTE HEATH MD Aug 30, 2022 14:49
[2022-08-30] MEDS ORDERED: PIPERACILLIN SODIUM/TAZOBACTAM 4.5 GM in NS (IVPB) 100 ML IV ONE (15:00)
[2022-08-30] MEDS ORDERED: CALCIUM CHLORIDE 1 GM/10 ML (IMS) SYR INJ ONE (15:00)
[2022-08-30] MEDS ORDERED: MIDAZOLAM 5 MG/5 ML (VERSED) VIAL ONE (16:00)
[2022-08-30] MEDS ORDERED: fentaNYL INJ 100 MCG/2 ML AMP ONE ×2 (16:00→18:16)
[2022-08-30] MEDS ORDERED: SODIUM BICARB 8.4% 50 MEQ/50 ML (ABBOTT) SYR IV ONE (16:15)
[2022-08-30] MEDS ORDERED: NOREPINEPHRINE 8 MG/250 ML 250 ML IV ONE (17:09)
[2022-08-30] MEDS ORDERED: NOREPINEPHRINE 8 MG/250 ML 250 ML IV SCH (17:15)
[2022-08-30 17:49] LABS: AMPHETAMINE SCREEN, URINE POSITIVE (NEGATIVE); BARBITURATE SCREEN URINE NEGATIVE (NEGATIVE); BENZODIAZEPINES SCREEN URINE NEGATIVE (NEGATIVE); CANNABINOID SCREEN, URINE NEGATIVE (NEGATIVE); COCAINE SCREEN URINE NEGATIVE (NEGATIVE); METHADONE STAT NEGATIVE (NEGATIVE); OPIATE SCREEN URINE NEGATIVE (NEGATIVE); OXYCODONE STAT NEGATIVE (NEGATIVE); PROPOXYPHENE STAT NEGATIVE (NEGATIVE); TRICYCLIC ANTIDEPRESSANTS SCRE NEGATIVE (NEGATIVE)
[2022-08-30 17:57] VITALS: BP 111/52
[2022-08-30] MEDS ORDERED: NS IV 1000 ML 1,000 ML IV STA (18:01)
[2022-08-30] MEDS ORDERED: NS IV 1000 ML 1,000 ML IV SCH (18:15)
[2022-08-30] MEDS ORDERED: PROPOFOL DRIP (ICU) 100 ML IV ONE (18:16)
== END 2022-08-30 18:39 | disposition short-term general hospital (02) ==
LOC: EDUNIT# 13:34 → ER 13:35
DX: J18.9 Pneumonia, unspecified organism (principal); E87.5 Hyperkalemia; J96.90 Respiratory failure, unspecified, unspecified whether with hypoxia or hypercapnia; E11.10 Type 2 diabetes mellitus with ketoacidosis without coma; E11.22 Type 2 diabetes mellitus with diabetic chronic kidney disease; I13.2 Hypertensive heart and chronic kidney disease with heart failure and with stage 5 chronic kidney disease, or end stage renal disease; I50.9 Heart failure, unspecified; N18.6 End stage renal disease; Z99.2 Dependence on renal dialysis; Z79.4 Long term (current) use of insulin
CPT/HCPCS: 31500; 36415; 51702; 71045; 80053; 80306; 81000; 82805; 83605; 84145; 85007; 85027; 85610; 85730; 86141; 87040; 87088; 99291